=== PATIENT | female | born 1955 | race American Indian/Alaskan Native ===

== ENCOUNTER 2019-07-10 10:53 | Outpatient (CLI) | payer MEDICARE, OTHER ==
--- NOTE | 2019-07-10 14:28 | XRay Report ---
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 FINDINGS: BONES / JOINT(S): No acute displaced fracture or subluxation. No significant arthritis. There is a qu estionable 2.5 cm lucent lesion in the L2 vertebral body, though this may reflect superimposed bowel gas, and a possible 1.6 cm lucent lesion in the L4 vertebral body. There is a possible 10 mm lucent l esion in the left iliac crest. No additional obvious lytic lesions identified throughout the visualiz ed osseous structures. SOFT TISSUES: No significant abnormality. ADDITIONAL FINDINGS: The cardiomediastinal silhouette is unremarkable allowing for AP technique. The lungs are clear. No pleural effusion. No pneumothorax. Unremarkable bowel gas pattern. A 3 cm rounded calcific density projecting over the pelvis likely represents a calcified fibroid. IMPRESSION: 1. Several possible lucent lesions in the lumbar spine and bony pelvis as described above. CT or MRI of the lumbar spine and pelvis could be obtained for further characterization if clinically warranted . Signer Name: Kecia Baez MD Signed: 07/10/2019 2:23 PM Workstation Name: [id number]
== END 2019-07-10 10:54 | disposition home or self-care (01) ==
LOC: SPVIMAG 10:53
PROVIDERS: ATTEND Internal Medicine Hematology & Oncology
DX: D47.2 Monoclonal gammopathy (principal)
CPT/HCPCS: 77074

== ENCOUNTER 2020-08-29 23:49 | Inpatient (IN) | payer MEDICARE, OTHER ==
--- NOTE | 2020-08-30 00:05 | Emergency Department Report ---
ED CPR HPI - General Stated Complaint: CARDIAC ARREST Time Seen by Provider: 08/29/20 23:53 Source: EMS Mode of arrival: Stretcher Limitations: Altered Mental Status (unresponsive) - History of Present Illness Initial Comments: Chief complaint: Cardiac arrest HPI: History obtained from EMS and neighbor This is a 65-year-old female with history of end-stage renal disease on hem odialysis, multiple myeloma status post chemotherapy and stem cell transplant, hypertension, type 2 diabetes, who presents status post cardiac arrest. EMS was called to the scene for shortness of breath. Upon EMS arrival patient was found in the driveway laying down unresponsive. Initial rhythm asystole. EMS intubated patient with 7 oh ETT. Patient was given 3 doses of epinephrine. Patient was also given calcium and sodium bicarbonate. Patient's rhythm developed into PEA and ultimately sinus rhythm. Return of spontaneous circulation achieved while in route during EMS treatment after 10 minutes of resuscitation. Upon arrival patient has palpable radial pulses and normal blood pressure. I obtained medical history from daughter Awa Mendes at [phone] MsVivi Mendes is the clinical decision maker for patient Patient was in her normal state of health according to daughter. Patient had a phone conversation with her mother this afternoon. Patient receives cancer care through [facility]. She has been hospitalized at [facility] on previous occasions. Patient's last hemodialysis session occurred on Sunday. Patient's oncologist at [facility] is Dr. Bryan Reyna Daughter was unable to recall any drug allergies. MD Complaint: found unresponsive Place: home Bystander CPR Performed: No Initial Findings in the Field: unresponsive, other rhythm (Asystole) ROSC in the Field: Yes Associated Symptoms: other (EMS called shortness of breath) Treatments Prior to Arrival: intubation, epinephrine mgs # (3 doses of epinephrine), sodium bicarbonate (1 dose of sodium bicarbonate), calcium (1 dose of calcium) ED Review of Systems ROS: Stated complaint: CARDIAC ARREST Other details as noted in HPI Comment: Unobtainable due to pts medical conditions (Persistent unresponsive status after cardiac arrest) ED Past Medical Hx - Past Medical History Previous Medical History?: Yes Hx Renal Disease: Yes (End-stage renal disease) Additional medical history: Leukemia - Surgical History Past Surgical History?: Yes Additional Surgical History: Right upper extremity AV fistula - Family History Family history: other (Unable to be obtained) - Social History Substance Use Type: Other (Unable to be obtained) ED Physical Exam - General General appearance: other (Unresponsive, eyes open dry corneas no spontaneous movement no spontaneous respirations) - Head Head exam: Present: normocephalic, other (Large circular abrasion right parietal region 5 cm in diameter) - Eye Eye exam: Present: other (Fixed dilated pupils dry cornea absent eyelid reflex) - ENT ENT exam: Present: other (ETT in place) - Neck Neck exam: Present: normal inspection, other (No deformity) - Respiratory Respiratory exam: Present: other (Left chest: Permacath present, no erythema or drainage, right-sided breath sounds more prominent than the left). Absent: wheezes, rales, rhonchi, stridor - Cardiovascular Cardiovascular Exam: Present: regular rate, normal rhythm, normal heart sounds. Absent: systolic murmur, diastolic murmur, rubs, gallop - GI/Abdominal GI/Abdominal exam: Present: distended, hypoactive bowel sounds. Absent: guarding - Extremities Exam Extremities exam: Present: normal inspection, other (No deformities of the 4 extremities, right bicep AV fistula positive thrill positive bruit) - Neurological Exam Neurological exam: Present: other (Lifeless no spontaneous movement) - Psychiatric Psychiatric exam: Present: other (Lifeless no spontaneous movement) - Skin Skin exam: Present: intact, pallor ED Course Vital Signs 08/29/20 08/30/20 08/30/20 23:54 00:01 00:13 Pulse Rate 84 83 Respiratory 24 Rate Blood Pressure 108/47 108/47 O2 Sat by Pulse 98 99 99 Oximetry - Reevaluation(s) Reevaluation #1: 08/30/20 01:37 Best friend and nonfarm animal caretaker Lobito Mendes came to the bedside. She provided additional history. I updated son and best friend with results notably hyperka lemia. Reevaluation #2: 08/30/20 01:37 I have ordered treatment for hyperkalemia including sodium bicarbonate, insulin/dextrose, calcium gluconate Reevaluation #3: 08/30/20 02:04 ABG interpretation mixed respiratory and metabolic acidosis with adequate oxygenation mild hypercapnia Reevaluation #4: 08/30/20 02:16 I updated daughter with results of tests obtained. According to daughter she does not know of any drug allergies. - ABG Interpretation Ph: 7.20 PCO2: 49 PO2: 98 Bicarbonate: 78 Interpretation: respiratory acidosis, metabolic acidosis ED Medical Decision Making - Lab Data Result diagrams: 08/30/20 00:15 08/30/20 00:15 - EKG Data -: EKG Interpreted by Me EKG shows normal: axis - EKG Data 08/30/20 00:06 EKG obtained 0002 EKG interpreted by me Sinus arrhythmia rate 90 bpm normal axis prolonged QTC ST depression in lateral leads right bundle branch block no ST elevation - Radiology Data Radiology impression CT head without contrast: No evidence of acute intracranial process, right scalp injury CT angio chest: Diffuse bilateral interstitial airspace disease considerations pulmonary edema or diffuse infectious process, moderate size pericardial effusion, moderate cardiomegaly CT cervical spine without contrast: No evidence of acute bone marrow abnormality of the cervical spine, biapical airspace disease AP portable chest: ETT is 4 cm above the ceci, right-sided Port-A-Cath present, next interstitial and airspace disease CT abdomen pelvis: retained stool throughout colon - Medical Decision Making 1. Patient presents status post cardiac arrest initial rhythm asystole. Mauri Echeverria son came to the bedside. He understands the dire situation. Awa Mendes daughter was informed per phone. She understands that patient is in dire state. Both son and daughter understand that brain , anoxic brain injury is likely. Differential diagnosis hyperkalemia, myocardial infarction, pulmonary embolism, hypoxia, Severe metabolic acidosis, severe hyperglycemia 2. Pulmonary infiltrate seen on CT and chest radiograph differential diagnosis includes pulmonary embolism, infectious process. Antibiotics initiated in emergency department. COVID-19 test ordered. Patient received first COVID-19 vaccination earlier this month. Differential diagnosis includes multifocal pneumonia due to COVID-19 infection, healthcare associated pneumonia bacterial etiology. Acute pulmonary edema due to heart failure or end-stage renal disease. Covid test ordered. Covid precautions instituted. Broad-spectrum ant ibiotics initiated. 3. Hypertensive urgency: Patient subsequently developed severe hypertension wh ich I suspect is reflective of brain injury Critical Care Time: Yes Critical care time in (mins) excluding proc time.: 70 Critical care attestation.: If time is entered above; I have spent that time in minutes in the direct care of this critically ill patient, excluding procedure time. 70 minutes of critical care time excluding procedures were used in the care of the patient. Prior to patient's arrival, respiratory therapist called as well as team members assigned roles. I came immediately to the bedside upon patien t's arrival. I obtained history from EMS at the bedside. I discussed treatment plan with the nursing team members. I reviewed electronic record. I obtained history from family member. Patient required multiple interventions and reassessments. ED Disposition Clinical Impression: Anoxic encephalopathy, Cardiac arrest, Suspected COVID-19 virus infection, M ultifocal pneumonia, Pulmonary edema, End-stage renal disease on hemodialysis, Hypertensive urgency Disposition: 09 OP ADMIT IP TO THIS HOSP Is pt being admited?: Yes Condition: Critical Instructions: Pulmonary Edema (ED), Bacterial Pneumonia (ED)
[2020-08-30 00:38] LABS: Hematocrit 31.8 % (30.3-42.9); Hemoglobin 9.8 gm/dl (10.1-14.3); Mean Corpuscular HGB Conc 31 % (30-34); Red Blood Count 2.83 M/mm3 (3.65-5.03); Red Cell Distribution Width 19.9 % (13.2-15.2)
[2020-08-30 00:39] LABS: Mean Corpuscular Volume 112 fl (79-97)
[2020-08-30 00:40] LABS: Platelet Count 95 K/mm3 (140-440)
--- NOTE | 2020-08-30 00:48 | XRay Report ---
CHEST 1 VIEW, 08/29/2020 11:52 PM CLINICAL INFORMATION/INDICATION: Cardiac arrest. Unresponsive. COMPARISON: None. FINDINGS: SUPPORT DEVICES: Endotracheal tube is present with tip approximately 4 cm above the level the ceci. Dual-lumen central line and right-sided Port-A-Cath are present. HEART: The cardiac silhouette is moderately enlarged. LUNGS/PLEURA: Diffuse bilateral mixed interstitial and airspace disease is present, most prominent at the right lung base. There is no evidence of pneumothorax. ADDITIONAL FINDINGS: No additional acute findings. IMPRESSION: 1. Moderate enlargement of the cardiac silhouette. 2. Diffuse bilateral mixed interstitial and airspace disease. Considerations would include pulmonary edema or multifocal infectious process. Signer Name: Loree Loera MD Signed: 08/30/2020 12:44 AM Workstation Name: [id number]
[2020-08-30 01:01] LABS: Albumin 3.4 g/dL (3.9-5); Calcium 9.1 mg/dL (8.4-10.2)
[2020-08-30 01:25] LABS: Chol/HDL Ratio 2.27 %
[2020-08-30] MEDS ORDERED: SODIUM BICARB 8.4% 50 MEQ/50 ML SYRINGE IV ONE (01:31)
[2020-08-30] MEDS ORDERED: INSULIN REGULAR, HUMAN 100 UNITS/1 ML IV ONE ×2 (01:31→09:30)
[2020-08-30] MEDS ORDERED: DEXTROSE 50% IN WATER (25GM) 50 ML VIAL IV ONE (01:32)
--- NOTE | 2020-08-30 01:33 | Cat Scan Report ---
Examination: CT of the head without contrast Clinical information: Syncope. Altered mental status. Comparison: None Technical: Multiple axial CT images of the head were obtained without intravenous contrast. Sagittal and coronal reformats were obtained. All CTs at this facility utilize dose reduction techniques inc luding automated exposure control, iterative reconstruction and weight based dosing when appropriate to reduce patient radiation dose to as low as reasonable achievable. Findings: INTRACRANIAL CONTENTS: There is no CT evidence of acute intracranial hemorrhage. There is mild genera lized parenchymal atrophy. The ventricular system is normal in size. There is no evidence of mass eff ect or midline shift SKULL: No acute bony abnormality is visualized. ORBITS: The bilateral orbits and globes appear normal PARANASAL SINUSES / MASTOID AIR CELLS: Paranasal sinuses and mastoid air cells appear clear. There is a moderate sized right frontal scalp hematoma. Impression: 1. No CT evidence of acute intracranial process. 2. Right scalp injury. Signer Name: Loree Loera MD Signed: 08/30/2020 1:28 AM Workstation Name: [id number]
--- NOTE | 2020-08-30 01:37 | Cat Scan Report ---
Examination: CT of the cervical spine without contrast Clinical information: Trauma. Fall. Comparison: None Technical: Multiple axial CT images of the cervical spine were obtained without intravenous contrast. Sagittal and coronal reformats were obtained. All CTs at this facility utilize dose reduction techn iques including automated exposure control, iterative reconstruction and weight based dosing when nemesio ropriate to reduce patient radiation dose to as low as reasonable achievable. Findings: There is gross normal alignment of the cervical vertebral bodies. Vertebral body height and intervert ebral disc spaces are well maintained. Mild multilevel bony degenerative changes are noted. There is no CT evidence of acute fracture of the cervical vertebral bodies. Endotracheal tube is present. Limited visualization of the bilateral lung apices demonstrates diffuse bilateral airspace disease. Impression: 1. No CT evidence of acute bony abnormality of the cervical spine. 2. Biapical airspace disease. Signer Name: Loree Loera MD Signed: 08/30/2020 1:33 AM Workstation Name: [id number]
--- NOTE | 2020-08-30 01:43 | Cat Scan Report ---
CTA CHEST WITH IV CONTRAST INDICATION: Altered mental status. Syncope. Cardiac arrest. TECHNIQUE: Axial CT images were obtained through the chest after injection of IV contrast. Coronal oblique 2-D reconstruction images were produced. 3 plane MIP reconstruction images were produced at an [email or web address] workstation. All CTs at this facility utilize dose reduction techniques including automated expos ure control, iterative reconstruction and weight based dosing when appropriate to reduce patient radi ation dose to as low as reasonable achievable. COMPARISON: None. FINDINGS: Evaluation of the pulmonary arteries demonstrates no central or segmental filling defects to suggest pulmonary embolism. The heart is mildly enlarged. There is a moderate sized pericardial effusion yanna uring a maximum thickness of approximately 2.4 cm. Evaluation of the lung parenchyma demonstrates dif fuse bilateral mixed interstitial and airspace disease with associated atelectasis. An endotracheal tube is present with tip approximately 3 cm above the level the ceci. Limited imaging of the upper abdomen demonstrates no evidence of acute abnormality. Bones and soft tissues: Evaluation of bony and soft tissue structures demonstrates no acute abnormali ty. IMPRESSION: 1. Diffuse bilateral mixed interstitial and airspace disease. Considerations would include diffuse b ilateral pulmonary edema or diffuse infectious process. 2. Moderate sized pericardial effusion. 3. Moderate cardiomegaly Signer Name: Loree Loera MD Signed: 08/30/2020 1:38 AM Workstation Name: [id number]
[2020-08-30] MEDS ORDERED: DEXTROSE 50% IN WATER (25GM) 50 ML SYRINGE IV ONE ×3 (01:59→09:30)
--- NOTE | 2020-08-30 02:07 | Cat Scan Report ---
CT ABDOMEN AND PELVIS WITH IV CONTRAST INDICATION: Syncope. Cardiac arrest. TECHNIQUE: Following the administration of intravenous contrast, multiple axial CT images of the abdo men and pelvis were acquired. Sagittal and coronal reformats were obtained. All CT performed at this facility utilize dose reduction techniques including automated exposure control, iterative reconstru ction and weight based dosing when appropriate to reduce patient radiation dose to as low as reasonab ly achievable. COMPARISON: No prior abdominal imaging is available for comparison. FINDINGS: Limited imaging of the bilateral lung bases demonstrates diffuse bilateral mixed interstitial and air space disease with associated atelectasis. There is a pericardial effusion. ABDOMEN: The liver, spleen, gallbladder, pancreas, bilateral adrenal glands and bilateral kidneys show no evid ence of acute abnormality. There is mild fluid-filled distention of the stomach. There is dense ather osclerotic calcification of the abdominal aorta. There are multiple loops of moderately prominent fec alized small bowel. There is a moderate amount of retained stool throughout the colon. No free air is identified. There are multiple colonic diverticula. PELVIS: There is moderate sigmoid diverticulosis without evidence for diverticulitis. There is a moderate marci unt of formed stool within the rectum. The urinary bladder appears normal. Several calcified uterine fibroids are present. BONES AND SOFT TISSUES: No significant abnormality. IMPRESSION: 1. Retained stool throughout the colon and moderate amount of formed stool within the rectal vault re presenting constipation and possible fecal impaction. There are multiple loops of prominent fecalized small bowel which also may be secondary to constipation. 2. Bibasilar mixed interstitial and airspace disease. 3. Additional findings as above. Signer Name: Loree Loera MD Signed: 08/30/2020 2:03 AM Workstation Name: [id number]
[2020-08-30 02:33] LABS: Band Neutrophils # (Manual) 0.1 K/mm3; Total Cells Counted 100
[2020-08-30 02:34] LABS: Anisocytosis 1+; Platelet Estimate Consistent w Auto
[2020-08-30] MEDS ORDERED: VANCOMYCIN/NS 1 GM/250 ML 1 GM/250 ML BAG IV ONE (02:45)
[2020-08-30] MEDS ORDERED: dexAMETHasone 20 MG/5 ML VIAL IV ONE (02:49)
[2020-08-30] MEDS ORDERED: CALCIUM GLUCONATE 1,000 MG in SODIUM CHLORIDE 0.9% 100 ML IV ONE (03:31)
[2020-08-30 03:41] LABS: C-Reactive Protein 0.2 mg/dL (0.00-1.30)
[2020-08-30] MEDS ORDERED: PIPERACIL/TAZOBACTA 4.5/NS 100 4.5 GM/100 ML VIAL IV ONE (04:15)
[2020-08-30] MEDS ORDERED: MORPHINE 2 MG/1 ML INJ IV PRN (04:41)
[2020-08-30] MEDS ORDERED: MAGNESIUM HYDROXIDE (MOM) ORAL LIQD UDC PO PRN (04:41)
[2020-08-30] MEDS ORDERED: ONDANSETRON 4 MG/2 ML INJ IV PRN (04:41)
[2020-08-30] MEDS ORDERED: AZITHROMYCIN/NS 500 MG/250 ML 500 MG/250 ML BAG IV SCH (05:00)
--- NOTE | 2020-08-30 05:40 | History and Physical Report ---
History of Present Illness Date of examination: 08/30/20 Date of admission: 08/30/20 02:30 Chief complaint: Cardiac arrest History of present illness: 65-year-old female with known history of end-stage renal disease on dialysis, history of multiple myeloma status post chemotherapy and stem cell transplant, hypertension and diabetes mellitus was brought into the emergency room today after having a cardiac arrest. EMS was said to have been called because patient was having shortness of breath she was found to be in the driveway lying down unresponsive. Initial rhythm was asystole and patient was intubated by EMS. She had 3 rounds of epinephrine, given calcium and sodium bicarbonate. Initial rhythm was PEA and subsequently developed sinus rhythm. There was spontaneous return of circulation after about 10 minutes of resuscitation. Most of the history was gotten from the ER staff as family was not readily available. Patient's last dialysis was on Sunday. Patient follows up with oncologist (Dr. Bryan Reyna)at [facility] Work-up in the emergency room today reveals potassium of 7.0 Chest x-ray shows moderate enlargement of the cardiac silhouette, diffuse bilateral mixed interstitial and airspace disease. Considerations will include pulmonary edema or multifocal infectious process. Patient has been placed on empiric IV antibiotics for possible pneumonia. She has also had calcium gluconate, sodium bicarbonate, insulin and glucose for the hyperkalemia. . Past History Past Medical History: diabetes, dialysis, ESRD, hypertension, other (Multiple myeloma status post chemotherapy and stem cell transplant, leukemia) Past Surgical History: Other (Right upper extremity AV fistula) Social history: no significant social history Family history: no significant family history Medications and Allergies Allergies Allergy/AdvReac Type Severity Reaction Status Date / Time Unable to Assess Allergy Unverified 08/30/20 02:21 Active Meds: Active Medications Heparin Sodium (Porcine) (Heparin 5,000 Unit/1 Ml Vial) 5,000 unit SUB-Q Q8HR ANIYAH Ceftriaxone Sodium (Rocephin/Ns 2 Gm/100 Ml) 2 gm in 100 mls @ 200 mls/hr IV Q24H ANIYAH; Protocol Azithromycin (Zithromax/Ns) 500 mg in 250 mls @ 250 mls/hr IV Q24HR ANIYAH; Protocol Magnesium Hydroxide (Magnesium Hydroxide (Mom) Oral Liqd Udc) 30 ml PO Q4H PRN PRN Reason: Constipation Morphine Sulfate (Morphine 2 Mg/1 Ml Inj) 2 mg IV Q4H PRN PRN Reason: Pain, Moderate (4-6) Ondansetron HCl (Ondansetron 4 Mg/2 Ml Inj) 4 mg IV Q8H PRN PRN Reason: Nausea And Vomiting Sodium Chloride (Sodium Chloride 0.9% 10 Ml Flush Syringe) 10 ml IV BID ANIYAH Sodium Chloride (Sodium Chloride 0.9% 10 Ml Flush Syringe) 10 ml IV PRN PRN PRN Reason: LINE FLUSH Review of Systems ROS unobtainable: due to endotracheal tube Exam - Constitutional Vitals: Temp Pulse Resp BP Pulse Ox 96 H 28 H 130/65 100 08/30/20 04:01 08/30/20 04:01 08/30/20 04:01 08/30/20 04:01 General appearance: Present: no acute distress, well-nourished - EENT Eyes: Present: PERRL, EOM intact. Absent: scleral icterus ENT: hearing intact, clear oral mucosa, dentition normal - Neck Neck: Present: supple, normal ROM - Respiratory Respiratory effort: normal Respiratory: bilateral: diminished - Cardiovascular Rhythm: regular Heart Sounds: Present: S1 & S2. Absent: gallop, systolic murmur, diastolic murmur, rub, click - Extremities Extremities: no ischemia, pulses intact, pulses symmetrical, No edema, normal te mperature, normal color, Full ROM Peripheral Pulses: within normal limits - Abdominal General gastrointestinal: Present: soft, non-tender, non-distended. Absent: mass - Integumentary Integumentary: Present: clear, warm, dry. Absent: rash - Musculoskeletal Musculoskeletal: strength equal bilaterally - Psychiatric Psychiatric: cooperative - Neurologic Neurologic: CNII-XII intact, other (Intubated ) HEART Score - HEART Score Troponin: Troponin T 0.085 ng/mL (0.00-0.029) H 08/30/20 00:15 Results - Labs CBC & Chem 7: 08/30/20 00:15 08/30/20 03:10 Labs: Abnormal lab results 08/30/20 08/30/20 08/30/20 Range/Units 00:14 00:15 00:15 RBC 2.83 L (3.65-5.03) M/mm3 Hgb 9.8 L (10.1-14.3) gm/dl MCV 112 H (79-97) fl MCH 35 H (28-32) pg RDW 19.9 H (13.2-15.2) % Plt Count 95 L (140-440) K/mm3 Nucleated RBC % 1.0 H (0.0-0.9) % D-Dimer (0-234) ng/mlDDU ABG pH 7.199 L (7.320-7.450) POC ABG pCO2 49.3 H (32.0-48.0) mmHg ABG Hemoglobin 11.9 L (12.0-17.5) ABG Oxyhemoglobin 93.0 L (94-98) ABG Potassium 6.9 H (3.40-4.50) mmol/L ABG Glucose 158 H (65-95) mg/dL Carboxyhemoglobin 2.8 H (0.5-1.5) Potassium 7.0 H* (3.6-5.0) mmol/L Carbon Dioxide 18 L (22-30) mmol/L BUN 68 H (7-17) mg/dL Creatinine 8.3 H (0.6-1.2) mg/dL Glucose 174 H (65-100) mg/dL Phosphorus (2.5-4.5) mg/dL Magnesium (1.7-2.3) mg/dL Ferritin (10.0-200.0) ng/mL AST 68 H (5-40) units/L Alkaline Phosphatase 414 H (35-129) units/L Lactate Dehydrogenase (91-180) units/L Troponin T 0.085 H (0.00-0.029) ng/mL Total Protein 5.6 L (6.3-8.2) g/dL Albumin 3.4 L (3.9-5) g/dL HDL Cholesterol 66 H (40-59) mg/dL Arterial Blood Glucose 158 H (65-95) mg/dL Arterial Blood Ionized Calcium (4.6-5.3) mg/dL 08/30/20 08/30/20 08/30/20 Range/Units 00:15 00:15 03:10 RBC (3.65-5.03) M/mm3 Hgb (10.1-14.3) gm/dl MCV (79-97) fl MCH (28-32) pg RDW (13.2-15.2) % Plt Count (140-440) K/mm3 Nucleated RBC % (0.0-0.9) % D-Dimer 6083.16 H > 72084 H (0-234) ng/mlDDU ABG pH (7.320-7.450) POC ABG pCO2 (32.0-48.0) mmHg ABG Hemoglobin (12.0-17.5) ABG Oxyhemoglobin (94-98) ABG Potassium (3.40-4.50) mmol/L ABG Glucose (65-95) mg/dL Carboxyhemoglobin (0.5-1.5) Potassium (3.6-5.0) mmol/L Carbon Dioxide (22-30) mmol/L BUN (7-17) mg/dL Creatinine (0.6-1.2) mg/dL Glucose (65-100) mg/dL Phosphorus 11.50 H (2.5-4.5) mg/dL Magnesium 3.80 H (1.7-2.3) mg/dL Ferritin (10.0-200.0) ng/mL AST (5-40) units/L Alkaline Phosphatase (35-129) units/L Lactate Dehydrogenase (91-180) units/L Troponin T (0.00-0.029) ng/mL Total Protein (6.3-8.2) g/dL Albumin (3.9-5) g/dL HDL Cholesterol (40-59) mg/dL Arterial Blood Glucose (65-95) mg/dL Arterial Blood Ionized Calcium (4.6-5.3) mg/dL 08/30/20 08/30/20 08/30/20 Range/Units 03:10 03:10 04:49 RBC (3.65-5.03) M/mm3 Hgb (10.1-14.3) gm/dl MCV (79-97) fl MCH (28-32) pg RDW (13.2-15.2) % Plt Count (140-440) K/mm3 Nucleated RBC % (0.0-0.9) % D-Dimer (0-234) ng/mlDDU ABG pH (7.320-7.450) POC ABG pCO2 (32.0-48.0) mmHg ABG Hemoglobin 10.8 L (12.0-17.5) ABG Oxyhemoglobin (94-98) ABG Potassium 6.7 H (3.40-4.50) mmol/L ABG Glucose 137 H (65-95) mg/dL Carboxyhemoglobin (0.5-1.5) Potassium (3.6-5.0) mmol/L Carbon Dioxide (22-30) mmol/L BUN (7-17) mg/dL Creatinine (0.6-1.2) mg/dL Glucose 126 H (65-100) mg/dL Phosphorus (2.5-4.5) mg/dL Magnesium (1.7-2.3) mg/dL Ferritin 830.0 H (10.0-200.0) ng/mL AST (5-40) units/L Alkaline Phosphatase (35-129) units/L Lactate Dehydrogenase 400 H (91-180) units/L Troponin T (0.00-0.029) ng/mL Total Protein (6.3-8.2) g/dL Albumin (3.9-5) g/dL HDL Cholesterol (40-59) mg/dL Arterial Blood Glucose 137 H (65-95) mg/dL Arterial Blood Ionized Calcium 4.5 L (4.6-5.3) mg/dL Assessment and Plan - Patient Problems (1) Cardiac arrest Current Visit: Yes Status: Acute Plan to address problem: Successfully resuscitated and intubated. Possibly related to underlying multifocal infectious pulmonary process versus pulmonary edema and or hyperkalemia. Consult placed to cardiology for evaluation. Patient to be closely monitored in the intensive care unit. (2) Anoxic encephalopathy Current Visit: Yes Status: Acute Plan to address problem: Following cardiac arrest. Will be closely monitored in the intensive care unit. (3) End-stage renal disease on hemodialysis Current Visit: Yes Status: Acute Plan to address problem: Patient on dialysis on Mondays, Wednesdays and Fridays. Last dialysis was on Sunday. Consult placed to nephrology for evaluation. (4) Hypertensive urgency Current Visit: Yes Status: Acute Plan to address problem: Blood pressure currently stable. We will monitor vital signs closely. (5) Multifocal pneumonia Current Visit: Yes Status: Acute Plan to address problem: Patient commenced on empiric IV antibiotics. We will also request COVID-19 testing. Consult placed to infectious disease for evaluation. (6) Suspected COVID-19 virus infection Current Visit: Yes Status: Acute Plan to address problem: Patient commenced on IV steroids. Will await COVID-19 testing. Consult placed to infectious disease. (7) DVT prophylaxis Current Visit: Yes Status: Acute Plan to address problem: Patient placed on subcutaneous heparin. (8) Full code status Current Visit: Yes Status: Acute Plan to address problem: Patient is full code.
[2020-08-30] MEDS ORDERED: cefTRIAXone/NS 2 GM/100 ML 2 GM/100 ML BAG IV SCH (06:00)
[2020-08-30] MEDS: HEPARIN 5,000 UNIT/1 ML VIAL SUB-Q SCH ×3 (06:41→22:23)
--- NOTE | 2020-08-30 08:15 | Consultation ---
History of Present Illness - Reason for Consult Consult date: 08/30/20 end stage renal disease Requesting physician: SUSANA FLORES - History of Present Illness 65-year-old lady with who is well-known to me with a history of end-stage renal disease on hemodialysis on a Sunday, Sunday and Sunday schedule. Patient has a history of multiple myeloma undergoing chemotherapy and recently had a stem cell transplant. She has been doing well and is compliant with her dialysis treatments. She went to her usual dialysis on Sunday with no complications. EMS was called because of shortness of breath and on presentation found patient down unresponsive in her driveway. She was in asystole. She was intubated and had 3 rounds of epinephrine, calcium gluconate and bicarbonate on the field. She went into pulseless electrical activity and then into normal sinus rhythm. had return of spontaneous circulation after 10 minutes while enroute. In the emergency room potassium was high at 7 and chest x-ray showed cardiomegaly with bilateral interstitial alveolar infiltrates. I am consulted to provide dialysis to manage her fluid and electrolyte abnormalities. 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 denies: smoking, alcohol abuse, prescription drug abuse, IV drug use Family history: no significant family history Medications and Allergies Allergies Allergy/AdvReac Type Severity Reaction Status Date / Time No Known Allergies Allergy Verified 08/30/20 22:43 Home Medications Medication Instructions Recorded Confirmed Last Taken Type Acyclovir [Zovirax Tab] 400 mg PO BID 08/30/20 08/30/20 Unknown History Amlodipine Besylate 10 mg PO DAILY 08/30/20 08/30/20 Unknown History Furosemide [Lasix] 40 mg PO DAILY 08/30/20 08/30/20 Unknown History Gabapentin [Neurontin] 600 mg PO BID 08/30/20 08/30/20 Unknown History Imdur ER 30 mg PO DAILY 08/30/20 08/30/20 Unknown History Losartan Potassium 50 mg PO BID 08/30/20 08/30/20 Unknown History Losartan/Hydrochlorothiazide 1 each PO DAILY 08/30/20 08/30/20 Unknown History [Losartan-Hctz 100-25 mg Tab] Metoprolol Tartrate 25 mg PO BID 08/30/20 08/30/20 Unknown History Mirtazapine [Remeron] 30 mg PO HS 08/30/20 08/30/20 Unknown History Sevelamer Carbonate [Renvela] 800 mg PO TIDWM 08/30/20 08/30/20 Unknown History Vit B Complx C/Folic Acid/Zinc 0.8 mg PO DAILY 08/30/20 08/30/20 Unknown History [Dialyvite 800-Zinc 15 Tab] Zolpidem Tartrate [Edluar SUBL] 5 mg PO QHS PRN 08/30/20 08/30/20 Unknown History calcitrioL 0.5 mcg PO DAILY 08/30/20 08/30/20 Unknown History Active Meds: Active Medications Heparin Sodium (Porcine) (Heparin 5,000 Unit/1 Ml Vial) 5,000 unit SUB-Q Q8HR ANIYAH Last Admin: 08/30/20 06:41 Dose: 5,000 unit Documented by: Ceftriaxone Sodium (Rocephin/Ns 2 Gm/100 Ml) 2 gm in 100 mls @ 200 mls/hr IV Q24H ANIYAH; Protocol Last Admin: 08/30/20 06:41 Dose: 200 mls/hr Documented by: Azithromycin (Zithromax/Ns) 500 mg in 250 mls @ 250 mls/hr IV Q24HR ANIYAH; Protocol Last Admin: 08/30/20 06:40 Dose: 250 mls/hr Documented by: Magnesium Hydroxide (Magnesium Hydroxide (Mom) Oral Liqd Udc) 30 ml PO Q4H PRN PRN Reason: Constipation Morphine Sulfate (Morphine 2 Mg/1 Ml Inj) 2 mg IV Q4H PRN PRN Reason: Pain, Moderate (4-6) Ondansetron HCl (Ondansetron 4 Mg/2 Ml Inj) 4 mg IV Q8H PRN PRN Reason: Nausea And Vomiting Sodium Chloride (Sodium Chloride 0.9% 10 Ml Flush Syringe) 10 ml IV BID ANIYHA Sodium Chloride (Sodium Chloride 0.9% 10 Ml Flush Syringe) 10 ml IV PRN PRN PRN Reason: LINE FLUSH Exam - Vital Signs Vital signs: Vital Signs Pulse Resp BP Pulse Ox 84 24 108/47 98 08/29/20 23:54 08/29/20 23:54 08/29/20 23:54 06/13/21 23:54 - Physical Exam Narrative exam: Middle-aged -[place] female lying in bed in ICU intubated on ventilator on Diprivan and fentanyl infusions HEENT: NCAT, moving her eyes not purposefully, Neck: Supple, no venous distention CVS: S1S2 RRR with no murmur, rub or gallop Chest: Clear to auscultation Abdomen: Protuberant, soft to firm, nontender, no organomegaly, bowel sounds are present Extremities: No edema Genitourinary deferred Skin warm and dry no rash Neuro: Eyes open, moving her eyes nonpurposefully, not following commands Results - Lab Results 09/03/20 04:12 09/03/20 04:12 Most recent lab results ABG pH 7.332 (7.320-7.450) 08/30/20 04:49 ABG O2 Saturation 95.8 (0-100) 08/30/20 04:49 Calcium 9.1 mg/dL (8.4-10.2) 08/30/20 00:15 Phosphorus 11.50 mg/dL (2.5-4.5) H 08/30/20 00:15 Magnesium 3.80 mg/dL (1.7-2.3) H 08/30/20 00:15 Assessment and Plan - Patient Problems (1) Hyperkalemia Current Visit: Yes Status: Acute Plan to address problem: Emergent dialysis was done for hyperkalemia. Follow-up potassium (2) Cardiac arrest Current Visit: Yes Status: Acute Plan to address problem: Etiology uncertain. Cardiology evaluating patient. (3) End-stage renal disease on hemodialysis Current Visit: Yes Status: Acute Plan to address problem: Hemodialysis was done this morning. Patient is on a Sunday, Sunday/Sunday schedule. We will evaluate the need for dialysis again tomorrow. (4) Hypertensive urgency Current Visit: Yes Status: Acute Plan to address problem: Blood pressure was elevated on presentation but has improved. Follow-up blood pressure (5) Bilateral pulmonary infiltrates on chest x-ray Current Visit: Yes Status: Acute Plan to address problem: Probably secondary to pulmonary edema. Possibility of multifocal pneumonia being entertained. Continue antibiotics, follow-up cultures
[2020-08-30] MEDS ORDERED: SODIUM CHLORIDE 0.9% 100 ML IV PRN (09:00)
--- NOTE | 2020-08-30 09:05 | Consultation ---
History of Present Illness Consult date: 08/31/20 Reason for Consult: Post cardiac arrest History of present illness: Cardiac arrest History of present illness: 65-year-old female with known history of end-stage renal disease on dialysis, history of multiple myeloma status post chemotherapy and stem cell transplant, hypertension and diabetes mellitus was brought into the emergency room today after having a cardiac arrest. EMS was said to have been called because patient was having shortness of breath she was found to be in the driveway lying down unresponsive. Initial rhythm was asystole and patient was intubated by EMS. She had 3 rounds of epinephrine, given calcium and sodium bicarbonate. Initial rhythm was PEA and subsequently developed sinus rhythm. There was spontaneous return of circulation after about 10 minutes of resuscitation. Most of the history was gotten from the ER staff as family was not readily available. Patient's last dialysis was on Sunday. Patient follows up with oncologist (Dr. Bryan Reyna)at [facility] Work-up in the emergency room today reveals potassium of 7.0 Chest x-ray shows moderate enlargement of the cardiac silhouette, diffuse bilateral mixed interstitial and airspace disease. Considerations will include pulmonary edema or multifocal infectious process. Patient has been placed on empiric IV antibiotics for possible pneumonia. She has also had calcium gluconate, sodium bicarbonate, insulin and glucose for the hyperkalemia. Neurology consulted for evalauation of Post cardiac arrest , no hypothermia is performed Ct brain is remarkable for scalpe injury CTA lung is remarkable pulp. edema and or infection and pul/ effusion he is currently on 2 Mc of Fentanyl . Past History Past Medical History: diabetes, dialysis, ESRD, hypertension, other (Multiple myeloma status post chemotherapy and stem cell transplant, leukemia) Past Surgical History: Other (Right upper extremity AV fistula) Social history: no significant social history Family history: no significant family history Medications and Allergies Allergies Allergy/AdvReac Type Severity Reaction Status Date / Time Unable to Assess Allergy Unverified 08/30/20 02:21 Active Meds: Active Medications Heparin Sodium (Porcine) (Heparin 5,000 Unit/1 Ml Vial) 5,000 unit SUB-Q Q8HR ANIYAH Ceftriaxone Sodium (Rocephin/Ns 2 Gm/100 Ml) 2 gm in 100 mls @ 200 mls/hr IV Q24H ANIYAH; Protocol Azithromycin (Zithromax/Ns) 500 mg in 250 mls @ 250 mls/hr IV Q24HR ANIYAH; Protocol Magnesium Hydroxide (Magnesium Hydroxide (Mom) Oral Liqd Udc) 30 ml PO Q4H PRN PRN Reason: Constipation Morphine Sulfate (Morphine 2 Mg/1 Ml Inj) 2 mg IV Q4H PRN PRN Reason: Pain, Moderate (4-6) Ondansetron HCl (Ondansetron 4 Mg/2 Ml Inj) 4 mg IV Q8H PRN PRN Reason: Nausea And Vomiting Sodium Chloride (Sodium Chloride 0.9% 10 Ml Flush Syringe) 10 ml IV BID ANIYAH Sodium Chloride (Sodium Chloride 0.9% 10 Ml Flush Syringe) 10 ml IV PRN PRN PRN Reason: LINE FLUSH Review of Systems ROS unobtainable: due to endotracheal tube Exam - Constitutional Vitals: Temp Pulse Resp BP Pulse Ox 96 H 28 H 130/65 100 08/30/20 04:01 08/30/20 04:01 08/30/20 04:01 08/30/20 04:01 General appearance: Present: no acute distress, well-nourished - EENT Eyes: Present: PERRL, EOM intact. Absent: scleral icterus ENT: hearing intact, clear oral mucosa, dentition normal - Neck Neck: Present: supple, normal ROM - Respiratory Respiratory effort: normal Respiratory: bilateral: diminished - Cardiovascular Rhythm: regular Heart Sounds: Present: S1 & S2. Absent: gallop, systolic murmur, diastolic murmur, rub, click - Extremities Extremities: no ischemia, pulses intact, pulses symmetrical, No edema, normal temperature, normal color, Full ROM Peripheral Pulses: within normal limits - Abdominal General gastrointestinal: Present: soft, non-tender, non-distended. Absent: mass - Integumentary Integumentary: Present: clear, warm, dry. Absent: rash - Musculoskeletal Musculoskeletal: strength equal bilaterally - Psychiatric Psychiatric: cooperative - Neurologic Neurologic: CNII-XII intact, other (Intubated ) HEART Score - HEART Score Troponin: Troponin T 0.085 ng/mL (0.00-0.029) H 08/30/20 00:15 Results - Labs CBC & Chem 7: 08/30/20 00:15 08/30/20 03:10 Labs: Abnormal lab results 08/30/20 08/30/20 08/30/20 Range/Units 00:14 00:15 00:15 RBC 2.83 L (3.65-5.03) M/mm3 Hgb 9.8 L (10.1-14.3) gm/dl MCV 112 H (79-97) fl MCH 35 H (28-32) pg RDW 19.9 H (13.2-15.2) % Plt Count 95 L (140-440) K/mm3 Nucleated RBC % 1.0 H (0.0-0.9) % D-Dimer (0-234) ng/mlDDU ABG pH 7.199 L (7.320-7.450) POC ABG pCO2 49.3 H (32.0-48.0) mmHg ABG Hemoglobin 11.9 L (12.0-17.5) ABG Oxyhemoglobin 93.0 L (94-98) ABG Potassium 6.9 H (3.40-4.50) mmol/L ABG Glucose 158 H (65-95) mg/dL Carboxyhemoglobin 2.8 H (0.5-1.5) Potassium 7.0 H* (3.6-5.0) mmol/L Carbon Dioxide 18 L (22-30) mmol/L BUN 68 H (7-17) mg/dL Creatinine 8.3 H (0.6-1.2) mg/dL Glucose 174 H (65-100) mg/dL Phosphorus (2.5-4.5) mg/dL Magnesium (1.7-2.3) mg/dL Ferritin (10.0-200.0) ng/mL AST 68 H (5-40) units/L Alkaline Phosphatase 414 H (35-129) units/L Lactate Dehydrogenase (91-180) units/L Troponin T 0.085 H (0.00-0.029) ng/mL Total Protein 5.6 L (6.3-8.2) g/dL Albumin 3.4 L (3.9-5) g/dL HDL Cholesterol 66 H (40-59) mg/dL Arterial Blood Glucose 158 H (65-95) mg/dL Arterial Blood Ionized Calcium (4.6-5.3) mg/dL 08/30/20 08/30/20 08/30/20 Range/Units 00:15 00:15 03:10 RBC (3.65-5.03) M/mm3 Hgb (10.1-14.3) gm/dl MCV (79-97) fl MCH (28-32) pg RDW (13.2-15.2) % Plt Count (140-440) K/mm3 Nucleated RBC % (0.0-0.9) % D-Dimer 6083.16 H > 71904 H (0-234) ng/mlDDU ABG pH (7.320-7.450) POC ABG pCO2 (32.0-48.0) mmHg ABG Hemoglobin (12.0-17.5) ABG Oxyhemoglobin (94-98) ABG Potassium (3.40-4.50) mmol/L ABG Glucose (65-95) mg/dL Carboxyhemoglobin (0.5-1.5) Potassium (3.6-5.0) mmol/L Carbon Dioxide (22-30) mmol/L BUN (7-17) mg/dL Creatinine (0.6-1.2) mg/dL Glucose (65-100) mg/dL Phosphorus 11.50 H (2.5-4.5) mg/dL Magnesium 3.80 H (1.7-2.3) mg/dL Ferritin (10.0-200.0) ng/mL AST (5-40) units/L Alkaline Phosphatase (35-129) units/L Lactate Dehydrogenase (91-180) units/L Troponin T (0.00-0.029) ng/mL Total Protein (6.3-8.2) g/dL Albumin (3.9-5) g/dL HDL Cholesterol (40-59) mg/dL Arterial Blood Glucose (65-95) mg/dL Arterial Blood Ionized Calcium (4.6-5.3) mg/dL 08/30/20 08/30/20 08/30/20 Range/Units 03:10 03:10 04:49 RBC (3.65-5.03) M/mm3 Hgb (10.1-14.3) gm/dl MCV (79-97) fl MCH (28-32) pg RDW (13.2-15.2) % Plt Count (140-440) K/mm3 Nucleated RBC % (0.0-0.9) % D-Dimer (0-234) ng/mlDDU ABG pH (7.320-7.450) POC ABG pCO2 (32.0-48.0) mmHg ABG Hemoglobin 10.8 L (12.0-17.5) ABG Oxyhemoglobin (94-98) ABG Potassium 6.7 H (3.40-4.50) mmol/L ABG Glucose 137 H (65-95) mg/dL Carboxyhemoglobin (0.5-1.5) Potassium (3.6-5.0) mmol/L Carbon Dioxide (22-30) mmol/L BUN (7-17) mg/dL Creatinine (0.6-1.2) mg/dL Glucose 126 H (65-100) mg/dL Phosphorus (2.5-4.5) mg/dL Magnesium (1.7-2.3) mg/dL Ferritin 830.0 H (10.0-200.0) ng/mL AST (5-40) units/L Alkaline Phosphatase (35-129) units/L Lactate Dehydrogenase 400 H (91-180) units/L Troponin T (0.00-0.029) ng/mL Total Protein (6.3-8.2) g/dL Albumin (3.9-5) g/dL HDL Cholesterol (40-59) mg/dL Arterial Blood Glucose 137 H (65-95) mg/dL Arterial Blood Ionized Calcium 4.5 L (4.6-5.3) mg/dL Past History Past Medical History: diabetes, dialysis, ESRD, hypertension, other (Multiple myeloma status post chemotherapy and stem cell transplant, leukemia) Past Surgical History: Other (Right upper extremity AV fistula) Social history: no significant social history Family history: no significant family history Medications and Allergies Allergies Allergy/AdvReac Type Severity Reaction Status Date / Time No Known Allergies Allergy Verified 08/30/20 22:43 Home Medications Medication Instructions Recorded Confirmed Last Taken Type Acyclovir [Zovirax Tab] 400 mg PO BID 08/30/20 08/30/20 Unknown History Amlodipine Besylate 10 mg PO DAILY 08/30/20 08/30/20 Unknown History Furosemide [Lasix] 40 mg PO DAILY 08/30/20 08/30/20 Unknown History Gabapentin [Neurontin] 600 mg PO BID 08/30/20 08/30/20 Unknown History Imdur ER 30 mg PO DAILY 08/30/20 08/30/20 Unknown History Losartan Potassium 50 mg PO BID 08/30/20 08/30/20 Unknown History Losartan/Hydrochlorothiazide 1 each PO DAILY 08/30/20 08/30/20 Unknown History [Losartan-Hctz 100-25 mg Tab] Metoprolol Tartrate 25 mg PO BID 08/30/20 08/30/20 Unknown History Mirtazapine [Remeron] 30 mg PO HS 08/30/20 08/30/20 Unknown History Sevelamer Carbonate [Renvela] 800 mg PO TIDWM 08/30/20 08/30/20 Unknown History Vit B Complx C/Folic Acid/Zinc 0.8 mg PO DAILY 08/30/20 08/30/20 Unknown History [Dialyvite 800-Zinc 15 Tab] Zolpidem Tartrate [Edluar SUBL] 5 mg PO QHS PRN 08/30/20 08/30/20 Unknown History calcitrioL 0.5 mcg PO DAILY 08/30/20 08/30/20 Unknown History Active Meds: Active Medications Heparin Sodium (Porcine) (Heparin 5,000 Unit/1 Ml Vial) 5,000 unit SUB-Q Q8HR ANIYAH Last Admin: 08/30/20 06:41 Dose: 5,000 unit Documented by: Ceftriaxone Sodium (Rocephin/Ns 2 Gm/100 Ml) 2 gm in 100 mls @ 200 mls/hr IV Q24H ANIYAH; Protocol Last Admin: 08/30/20 06:41 Dose: 200 mls/hr Documented by: Azithromycin (Zithromax/Ns) 500 mg in 250 mls @ 250 mls/hr IV Q24HR ANIYAH; Protocol Last Admin: 08/30/20 06:40 Dose: 250 mls/hr Documented by: Sodium Chloride (Nacl 0.9%) 100 mls @ 999 mls/hr IV ARMIDA PRN PRN Reason: Hypotension Magnesium Hydroxide (Magnesium Hydroxide (Mom) Oral Liqd Udc) 30 ml PO Q4H PRN PRN Reason: Constipation Morphine Sulfate (Morphine 2 Mg/1 Ml Inj) 2 mg IV Q4H PRN PRN Reason: Pain, Moderate (4-6) Ondansetron HCl (Ondansetron 4 Mg/2 Ml Inj) 4 mg IV Q8H PRN PRN Reason: Nausea And Vomiting Sodium Chloride (Sodium Chloride 0.9% 10 Ml Flush Syringe) 10 ml IV BID ANIYAH Sodium Chloride (Sodium Chloride 0.9% 10 Ml Flush Syringe) 10 ml IV PRN PRN PRN Reason: LINE FLUSH Physical Examination - Vital Signs Vital Signs: Vital Signs Pulse Resp BP Pulse Ox 84 24 108/47 98 08/29/20 23:54 08/29/20 23:54 08/29/20 23:54 08/29/20 23:54 - Constitutional General appearance: comfortable - EENT EENT: Present: other (pupils constricted , eyes rolled up ,with slight EOM , no corneak is noted no gag ) - Respiratory Respiratory: Present: chest non-tender, lungs clear, rhonchi - Cardiovascular Cardiovascular: Present: regular rate Extremities: Present: no peripheral edema bilatateraly, no clubbing, cyanosis - Gastrointestinal Gastrointestinal: Present: normoactive bowel sounds - Integumentary Integumentary: Present: normal - Neurologic Sensorimotor examination: other (no movment to stimuli ,planter is equivical) Results - Laboratory Findings CBC and BMP: 08/31/20 05:45 08/31/20 05:45 Abnormal Lab Findings: Abnormal Labs 08/30/20 08/30/20 08/30/20 00:14 00:15 00:15 RBC 2.83 L Hgb 9.8 L MCV 112 H MCH 35 H RDW 19.9 H Plt Count 95 L Nucleated RBC % 1.0 H D-Dimer ABG pH 7.199 L POC ABG pCO2 49.3 H ABG Hemoglobin 11.9 L ABG Oxyhemoglobin 93.0 L ABG Potassium 6.9 H ABG Glucose 158 H Carboxyhemoglobin 2.8 H Potassium 7.0 H* Carbon Dioxide 18 L BUN 68 H Creatinine 8.3 H Glucose 174 H Phosphorus Magnesium Ferritin AST 68 H Alkaline Phosphatase 414 H Lactate Dehydrogenase Troponin T 0.085 H Total Protein 5.6 L Albumin 3.4 L HDL Cholesterol 66 H Arterial Blood Glucose 158 H Arterial Blood Ionized Calcium 08/30/20 08/30/20 08/30/20 00:15 00:15 03:10 RBC Hgb MCV MCH RDW Plt Count Nucleated RBC % D-Dimer 6083.16 H > 16013 H ABG pH POC ABG pCO2 ABG Hemoglobin ABG Oxyhemoglobin ABG Potassium ABG Glucose Carboxyhemoglobin Potassium Carbon Dioxide BUN Creatinine Glucose Phosphorus 11.50 H Magnesium 3.80 H Ferritin AST Alkaline Phosphatase Lactate Dehydrogenase Troponin T Total Protein Albumin HDL Cholesterol Arterial Blood Glucose Arterial Blood Ionized Calcium 08/30/20 08/30/20 08/30/20 03:10 03:10 04:49 RBC Hgb MCV MCH RDW Plt Count Nucleated RBC % D-Dimer ABG pH POC ABG pCO2 ABG Hemoglobin 10.8 L ABG Oxyhemoglobin ABG Potassium 6.7 H ABG Glucose 137 H Carboxyhemoglobin Potassium Carbon Dioxide BUN Creatinine Glucose 126 H Phosphorus Magnesium Ferritin 830.0 H AST Alkaline Phosphatase Lactate Dehydrogenase 400 H Troponin T Total Protein Albumin HDL Cholesterol Arterial Blood Glucose 137 H Arterial Blood Ionized Calcium 4.5 L 08/30/20 07:13 RBC Hgb MCV MCH RDW Plt Count Nucleated RBC % D-Dimer ABG pH POC ABG pCO2 ABG Hemoglobin ABG Oxyhemoglobin ABG Potassium ABG Glucose Carboxyhemoglobin Potassium 8.2 H* Carbon Dioxide BUN Creatinine Glucose Phosphorus Magnesium Ferritin AST Alkaline Phosphatase Lactate Dehydrogenase Troponin T Total Protein Albumin HDL Cholesterol Arterial Blood Glucose Arterial Blood Ionized Calcium Assessment and Plan Assessment and Plan # Cardiac arrest -Successfully resuscitated and intubated. - Possibly related to underlying multifocal infectious pulmonary process versus pulmonary edema and or hyperkalemia. -Currently on 2 mc Fantanyl -Intubated # Anoxic encephalopathy -Post cardiac arrest anoxia -Ct brain is noted -Consider Brain MRI -EEG -Off Sdation if possible. ++ Poor prognosis # End-stage renal disease on hemodialysis -Patient on dialysis on Mondays, Wednesdays and Fridays. -Last dialysis was on Sunday. -dialysed yesterday -BUn/Cr#74/7 # Hypertensive urgency -Blood pressure currently stable. -We will monitor vital signs closely. # Multifocal pneumonia -Patient commenced on empiric IV antibiotics. -We will also request COVID-19 testing. # DVT prophylaxis -Patient placed on subcutaneous heparin. # Full code status -Patient is full code. PLAN 1- MRI brain 2-EEG 3-Over all prognosis is poor 4- Off sedation 5- Dialysis ,Treat underlying infection
[2020-08-30] MEDS ORDERED: SODIUM POLYSTYRENE 15 GM/60 ML ORAL LIQD PO ONE (09:30)
[2020-08-30] MEDS ORDERED: CALCIUM GLUCONATE 2,000 MG in SODIUM CHLORIDE 0.9% 100 ML IV ONE (09:30)
[2020-08-30] MEDS: FAMOTIDINE 20 MG/2 ML INJ IV SCH (10:09)
[2020-08-30 11:29] LABS: Hepatitis B Surface Antigen Non-Reactive (Negative); Hepatitis C Virus Antibody Non-Reactive (NonReactive)
--- NOTE | 2020-08-30 11:41 | Event Note ---
This is 65-year-old female with diabetes mellitus, hypertension, hyperlipidemia, ESRD on HD MWF via left chest permacath, multiple myeloma s/p chemotherapy and stem cell transplant with right chest port, immature right upper extremity aVF and current tobacco abuse who presented to the emergency department on 08/30 s/p cardiac arrest after being found laying in driveway, unresponsive and in asystole by EMS after being called for shortness of breath. Patient was intubated by EMS and received 3 mg epinephrine, calcium and serum bicarbonate and ROSC was eventually achieved after 10 minutes of resuscitation. Recommend emergency department revealed hyperkalemia, CXR showed moderate enlargement of cardiac silhouette, diffuse bilateral mixed interstitial and airspace disease with considerations to pulmonary edema or multifocal infectious process. Patient was admitted to the hospitalist service s/p cardiac arrest with anoxic encephalopathy, ESRD on HD, hypertensive emergency, multifocal pneumonia and a and has a COVID-19 PUI. CCM, nephrology, neurology infectious disease and cardiology were consulted. 08/30: This morning neurology was consulted, patient noted to have leukocytosis, hyperkalemia, metabolic acidosis and hyperglycemia. Patient had hyperphosphatemia, hypomagnesemia also. Patient had hemodialysis today per nephrology. COVID-19 PCR negative. Patient was in ED holding and admitted to the ICU later during the day. Patient is sedated on fentanyl and propofol. At the time my examination she was assist-control, rate of 28, tidal and 450, 60 PEEP and FiO2 of 60%. PE: Constitutional: Patient is intubated on mechanical ventilation Neuro: Pupils reactive to light, slight cough/gag, no response to verbal or tactile stimuli, does not follow commands, does not track/focus CV: S1/S2 auscultated, no murmurs/gallop auscultated, regular rate and rhythm, peripheral pulses palpable x4, cap refill less than 3 seconds Respiratory: Intubated on mechanical ventilation, on assist control, rate of 28, tidal volume 450, PEEP of 6 on 60% FiO2, CTA, regular rate and rhythm GI: Abdomen soft nontender nondistended, active bowel sounds : Anuric Skin: CDI MS: Unable to assess This is 65-year-old female with DM, HTN, HLD, ESRD on HD MWF, multiple myeloma s/p chemotherapy and stem cell transplant and current tobacco abuse who was admitted s/p cardiac arrest with anoxic encephalopathy, hypertensive emergency, multifocal pneumonia and has a COVID-19 PUI COVID-19 ruled out S/p cardiac arrest Acute hypoxic respiratory failure Pericardial effusion Severe cardiomegaly Anoxic encephalopathy Hyperkalemia Hypochloremia Metabolic acidosis Hyperglycemia Hyperphosphatemia Hypermagnesemia Transaminitis Hypertension Hyperlipidemia ESRD on HD Multiple myeloma Current tobacco abuse -CCM, nephrology, cardiology, infectious disease, neurology consulted, appreciate recommendations -08/29 CXR shows moderate enlargement of cardiac silhouette, diffuse bilateral mixed chest x-ray and airspace disease -08/30 CT C-spine shows no CT evidence of acute bony abnormality the cervical spine, biapical airspace disease -08/30 CT head/brain shows no CT evidence of acute intracranial hemorrhage, mild generalized parenchymal atrophy, no evidence of midline shift or mass-effect, moderate size right frontal scalp hematoma -08/30 CTA chest shows no pulmonary embolism, mildly enlarged heart, moderate sized pericardial effusion, diffuse bilateral mixed interstitial and airspace disease with associated atelectasis. -08/30 CT abdomen/pelvis with contrast shows mild fluid-filled distended stomach, dense atherosclerotic calcification of the abdominal aorta, multiple loops of moderately prominent fecalized small bowel, moderate amount of retained stool throughout the colon which may represent possible sequela impaction and constipation, multiple colonic diverticula, several calcified uterine fibroids, bibasilar mixed interstitial and airspace disease -08/30 bilateral lower extremity Doppler ultrasound shows no evidence of DVT in either lower extremity -08/30 CXR shows moderate bilateral lateral pulmonary opacities improvement -08/30 echocardiogram pending -Empiric antibiotics per infectious disease -08/30 tracheal aspirate pending -S/P calcium gluconate, insulin, D50 for hyperkalemia in the emergency department -Lactulose every 6 -Bowel regimen -Tube feedings, SSI, Accu-Cheks every 6, hypoglycemic protocol -Trend CBC,BMP DVT/GI prophylaxis: SCDs to bilateral lower extremities while in bed, PPI, heparin subcu Disposition: ICU The high probability of a clinically significant, sudden or life threatening deterioration of the [multi] system(s) required my full and direct attention, intervention and personal management. The aggregate critical care time was [35] minutes. This time is in addition to time spent performing reported procedures but includes the following: [x] Data Review and interpretation [x] Patient assessment and monitoring of vital signs [x] Documentation [x] Medication orders and management
--- NOTE | 2020-08-30 11:44 | Vascular Lab Report ---
DUPLEX DOPPLER LOWER EXTREMITY VEINS, BILATERAL INDICATION: r/o dvt. TECHNIQUE: Duplex doppler imaging was performed through the veins of both lower extremities using ve nous compression and other maneuvers. COMPARISON: No relevant prior imaging study available. FINDINGS: Right Common femoral vein: Negative. Right Superficial femoral vein: Negative. Right Popliteal vein: Negative. Right Calf veins: Negative. Left Common femoral vein: Negative. Left Superficial femoral vein: Negative. Left Popliteal vein: Negative. Left Calf veins: Negative. Additional findings: None. IMPRESSION: No sonographic evidence for DVT in either lower extremity. Signer Name: Sly Traore Jr, MD Signed: 08/30/2020 11:40 AM Workstation Name: [id number]
--- NOTE | 2020-08-30 12:30 | Consultation ---
History of Present Illness Consult date: 08/30/20 Consult reason: cardiac arrest History of present illness: 65-year-old woman admitted following an out of hospital cardiopulmonary arrest. It was that she was found down with no pulse and ACLS was initiated by dredge operator. Patient is currently in the emergency room, unresponsive on the vent. Comorbidities include history of end-stage renal disease on hemodialysis, multiple myeloma currently on chemotherapy, hypertension and diabetes. Cardiac status is not optimally documented, since the patient's doctors and previous care with the [facility]. Patient was reported to have been compliant with hemodialysis sessions most recently within the 48 hours prior to presentation. Chest x-ray shows moderate severity cardiomegaly, with severe bilateral interstitial infiltrates. EKG shows a sinus arrhythmia with a nonspecific intra ventricular conduction block and nonspecific ST segment abnormalities. Past History Past Medical History: diabetes, dialysis, ESRD, hypertension, other (Multiple myeloma status post chemotherapy and stem cell transplant, leukemia) Past Surgical History: Other (Right upper extremity AV fistula) Social history: no significant social history Family history: no significant family history Medications and Allergies Allergies Allergy/AdvReac Type Severity Reaction Status Date / Time Unable to Assess Allergy Unverified 08/30/20 02:21 Active Meds: Active Medications Famotidine (Famotidine 20 Mg/2 Ml Inj) 20 mg IV DAILY ANIYAH Last Admin: 08/30/20 10:09 Dose: Not Given Documented by: Heparin Sodium (Porcine) (Heparin 5,000 Unit/1 Ml Vial) 5,000 unit SUB-Q Q8HR ANIYAH Last Admin: 08/30/20 06:41 Dose: 5,000 unit Documented by: Ceftriaxone Sodium (Rocephin/Ns 2 Gm/100 Ml) 2 gm in 100 mls @ 200 mls/hr IV Q24H ANIYAH; Protocol Last Admin: 08/30/20 06:41 Dose: 200 mls/hr Documented by: Azithromycin (Zithromax/Ns) 500 mg in 250 mls @ 250 mls/hr IV Q24HR ANIYAH; Protocol Last Admin: 08/30/20 06:40 Dose: 250 mls/hr Documented by: Sodium Chloride (Nacl 0.9%) 100 mls @ 999 mls/hr IV ARMIDA PRN PRN Reason: Hypotension Magnesium Hydroxide (Magnesium Hydroxide (Mom) Oral Liqd Udc) 30 ml PO Q4H PRN PRN Reason: Constipation Morphine Sulfate (Morphine 2 Mg/1 Ml Inj) 2 mg IV Q4H PRN PRN Reason: Pain, Moderate (4-6) Ondansetron HCl (Ondansetron 4 Mg/2 Ml Inj) 4 mg IV Q8H PRN PRN Reason: Nausea And Vomiting Sodium Chloride (Sodium Chloride 0.9% 10 Ml Flush Syringe) 10 ml IV BID ANIYAH Last Admin: 08/30/20 10:09 Dose: Not Given Documented by: Sodium Chloride (Sodium Chloride 0.9% 10 Ml Flush Syringe) 10 ml IV PRN PRN PRN Reason: LINE FLUSH Review of Systems ROS unobtainable: due to endotracheal tube, due to mental status Physical Examination Vital Signs Pulse Resp BP Pulse Ox 84 24 108/47 98 08/29/20 23:54 08/29/20 23:54 08/29/20 23:54 08/29/20 23:54 General appearance: other (Unresponsive, on the vent) HEENT: Positive: Other (Pupils fixed) Neck: Positive: neck supple Cardiac: Positive: Reg Rate and Rhythm Lungs: Positive: Decreased Breath Sounds Neuro: Positive: Other (Unresponsive, on the vent) Abdomen: Positive: Soft Female genitourinary: deferred Skin: Positive: Clear Extremities: Absent: edema Results 08/30/20 00:15 08/30/20 07:13 Cardiac Enzymes 08/30/20 08/30/20 Range/Units 00:15 03:10 AST 68 H (5-40) units/L Lactate Dehydrogenase 400 H (91-180) units/L Lipids 08/30/20 Range/Units 00:15 Triglycerides 61 (2-149) mg/dL Cholesterol 150 (50-199) mg/dL HDL Cholesterol 66 H (40-59) mg/dL Cholesterol/HDL Ratio 2.27 % CBC 08/30/20 Range/Units 00:15 WBC 9.8 (4.5-11.0) K/mm3 RBC 2.83 L (3.65-5.03) M/mm3 Hgb 9.8 L (10.1-14.3) gm/dl Hct 31.8 (30.3-42.9) % Plt Count 95 L (140-440) K/mm3 Comprehensive Metabolic Panel 08/30/20 08/30/20 08/30/20 Range/Units 00:15 03:10 07:13 Sodium 141 (137-145) mmol/L Potassium 7.0 H* 8.2 H* (3.6-5.0) mmol/L Chloride 98.9 (98-107) mmol/L Carbon Dioxide 18 L (22-30) mmol/L BUN 68 H (7-17) mg/dL Creatinine 8.3 H (0.6-1.2) mg/dL Glucose 174 H 126 H (65-100) mg/dL Calcium 9.1 (8.4-10.2) mg/dL AST 68 H (5-40) units/L ALT 38 (7-56) units/L Alkaline Phosphatase 414 H (35-129) units/L Total Protein 5.6 L (6.3-8.2) g/dL Albumin 3.4 L (3.9-5) g/dL EKG interpretations - Telemetry EKG Rhythm: Sinus Rhythm Assessment and Plan - Patient Problems (1) Cardiopulmonary arrest Current Visit: Yes Status: Acute Plan to address problem: Patient presents with an out of hospital cardiopulmonary arrest. Patient with end-stage renal disease on hemodialysis, undergoing chemotherapy. Chest x-ray shows moderate to severe cardiomegaly with bilateral pulmonary edema. Records of any prior cardiac work-up done at [facility] are not available for review. In addition to supportive management, we will get an echocardiogram for left ventricular function assessment, further cardiac management will depend on clinical course. Prognosis is poor in the setting of multiple severe comorbidities, and out of hospital cardiopulmonary arrest with unknown downtime.
--- NOTE | 2020-08-30 13:10 | Consultation ---
History of Present Illness - Reason for Consult Consult date: 08/30/20 - History of Present Illness 65 yo F PMHx multiple myeloma s/p cehmotherapy and stem cell transplant (unclear date), ESRD on HD, diabetes presented to the hospital after being found unresponsive in her driveway. She was noted to be PEA and was resuscitated. Her most recent HD was on Sunday prior to admission. She follows with [facility] for her cancer therapy. Afebrile with low temperatures, white count 9.8. Hepatitis panel negative. Hyperkalemic. On the vent. Imaging personally reviewed: Chest CTA: Diffuse bilateral mixed interstitial and airspace disease. infection vs. edema. Pericardial effusion. Past History Past Medical History: diabetes, dialysis, ESRD, hypertension, other (Multiple myeloma status post chemotherapy and stem cell transplant, leukemia) Past Surgical History: Other (Right upper extremity AV fistula) Social history: no significant social history Family history: no significant family history Medications and Allergies Allergies Allergy/AdvReac Type Severity Reaction Status Date / Time Unable to Assess Allergy Unverified 08/30/20 02:21 Active Meds: Active Medications Famotidine (Famotidine 20 Mg/2 Ml Inj) 20 mg IV DAILY ANIYAH Last Admin: 08/30/20 10:09 Dose: Not Given Documented by: Heparin Sodium (Porcine) (Heparin 5,000 Unit/1 Ml Vial) 5,000 unit SUB-Q Q8HR ANIYAH Last Admin: 08/30/20 06:41 Dose: 5,000 unit Documented by: Ceftriaxone Sodium (Rocephin/Ns 2 Gm/100 Ml) 2 gm in 100 mls @ 200 mls/hr IV Q24H ANIYAH; Protocol Last Admin: 08/30/20 06:41 Dose: 200 mls/hr Documented by: Azithromycin (Zithromax/Ns) 500 mg in 250 mls @ 250 mls/hr IV Q24HR ANIYAH; Protocol Last Admin: 08/30/20 06:40 Dose: 250 mls/hr Documented by: Sodium Chloride (Nacl 0.9%) 100 mls @ 999 mls/hr IV ARMIDA PRN PRN Reason: Hypotension Propofol (Diprivan 10 Mg/Ml) 1,000 mg in 100 mls @ 2.381 mls/hr IV TITR ANIYAH; Protocol Magnesium Hydroxide (Magnesium Hydroxide (Mom) Oral Liqd Udc) 30 ml PO Q4H PRN PRN Reason: Constipation Morphine Sulfate (Morphine 2 Mg/1 Ml Inj) 2 mg IV Q4H PRN PRN Reason: Pain, Moderate (4-6) Ondansetron HCl (Ondansetron 4 Mg/2 Ml Inj) 4 mg IV Q8H PRN PRN Reason: Nausea And Vomiting Sodium Chloride (Sodium Chloride 0.9% 10 Ml Flush Syringe) 10 ml IV BID ANIYAH Last Admin: 08/30/20 10:09 Dose: Not Given Documented by: Sodium Chloride (Sodium Chloride 0.9% 10 Ml Flush Syringe) 10 ml IV PRN PRN PRN Reason: LINE FLUSH Review of Systems ROS unobtainable: due to endotracheal tube Physical Examination - Physical Exam Narrative exam: Physical Exam: Constitutional: intubated, sedated Head, Ears, Nose: Normocephalic, atraumatic. External ears, nose normal Eyes: Conjunctivae/corneas clear. No icterus. No ptosis. Neck: ETT Oral: ETT Cardiovascular: S1, S2 normal. Respiratory: Good air entry, clear to auscultation bilaterally GI: Soft, non-tender; bowel sounds normal. No peritoneal signs. Musculoskeletal: No pedal edema, no cyanosis. Skin: No rash or abscess Hem/Lymphatic: No palpable cervical or supraclavicular nodes. No lymphangitis Psych: Sedated Neurological: Sedated - Constitutional Vitals: Vital Signs Temp Pulse Resp BP Pulse Ox 97.2 F L 108 H 32 H 190/76 100 08/30/20 11:41 08/30/20 12:45 08/30/20 11:15 08/30/20 12:45 08/30/20 11:26 Temperature -Last 24 Hours Temperature 97.2 F Temperature 97.9 F Results - Labs CBC & Chem 7: 08/30/20 00:15 08/30/20 07:13 Labs: Abnormal lab results 08/30/20 08/30/20 08/30/20 Range/Units 00:14 00:15 00:15 RBC 2.83 L (3.65-5.03) M/mm3 Hgb 9.8 L (10.1-14.3) gm/dl MCV 112 H (79-97) fl MCH 35 H (28-32) pg RDW 19.9 H (13.2-15.2) % Plt Count 95 L (140-440) K/mm3 Nucleated RBC % 1.0 H (0.0-0.9) % D-Dimer (0-234) ng/mlDDU ABG pH 7.199 L (7.320-7.450) POC ABG pCO2 49.3 H (32.0-48.0) mmHg ABG Hemoglobin 11.9 L (12.0-17.5) ABG Oxyhemoglobin 93.0 L (94-98) ABG Potassium 6.9 H (3.40-4.50) mmol/L ABG Glucose 158 H (65-95) mg/dL Carboxyhemoglobin 2.8 H (0.5-1.5) Potassium 7.0 H* (3.6-5.0) mmol/L Carbon Dioxide 18 L (22-30) mmol/L BUN 68 H (7-17) mg/dL Creatinine 8.3 H (0.6-1.2) mg/dL Glucose 174 H (65-100) mg/dL Phosphorus (2.5-4.5) mg/dL Magnesium (1.7-2.3) mg/dL Ferritin (10.0-200.0) ng/mL AST 68 H (5-40) units/L Alkaline Phosphatase 414 H (35-129) units/L Lactate Dehydrogenase (91-180) units/L Troponin T 0.085 H (0.00-0.029) ng/mL Total Protein 5.6 L (6.3-8.2) g/dL Albumin 3.4 L (3.9-5) g/dL HDL Cholesterol 66 H (40-59) mg/dL Arterial Blood Glucose 158 H (65-95) mg/dL Arterial Blood Ionized Calcium (4.6-5.3) mg/dL 08/30/20 08/30/20 08/30/20 Range/Units 00:15 00:15 03:10 RBC (3.65-5.03) M/mm3 Hgb (10.1-14.3) gm/dl MCV (79-97) fl MCH (28-32) pg RDW (13.2-15.2) % Plt Count (140-440) K/mm3 Nucleated RBC % (0.0-0.9) % D-Dimer 6083.16 H > 47391 H (0-234) ng/mlDDU ABG pH (7.320-7.450) POC ABG pCO2 (32.0-48.0) mmHg ABG Hemoglobin (12.0-17.5) ABG Oxyhemoglobin (94-98) ABG Potassium (3.40-4.50) mmol/L ABG Glucose (65-95) mg/dL Carboxyhemoglobin (0.5-1.5) Potassium (3.6-5.0) mmol/L Carbon Dioxide (22-30) mmol/L BUN (7-17) mg/dL Creatinine (0.6-1.2) mg/dL Glucose (65-100) mg/dL Phosphorus 11.50 H (2.5-4.5) mg/dL Magnesium 3.80 H (1.7-2.3) mg/dL Ferritin (10.0-200.0) ng/mL AST (5-40) units/L Alkaline Phosphatase (35-129) units/L Lactate Dehydrogenase (91-180) units/L Troponin T (0.00-0.029) ng/mL Total Protein (6.3-8.2) g/dL Albumin (3.9-5) g/dL HDL Cholesterol (40-59) mg/dL Arterial Blood Glucose (65-95) mg/dL Arterial Blood Ionized Calcium (4.6-5.3) mg/dL 08/30/20 08/30/20 08/30/20 Range/Units 03:10 03:10 04:49 RBC (3.65-5.03) M/mm3 Hgb (10.1-14.3) gm/dl MCV (79-97) fl MCH (28-32) pg RDW (13.2-15.2) % Plt Count (140-440) K/mm3 Nucleated RBC % (0.0-0.9) % D-Dimer (0-234) ng/mlDDU ABG pH (7.320-7.450) POC ABG pCO2 (32.0-48.0) mmHg ABG Hemoglobin 10.8 L (12.0-17.5) ABG Oxyhemoglobin (94-98) ABG Potassium 6.7 H (3.40-4.50) mmol/L ABG Glucose 137 H (65-95) mg/dL Carboxyhemoglobin (0.5-1.5) Potassium (3.6-5.0) mmol/L Carbon Dioxide (22-30) mmol/L BUN (7-17) mg/dL Creatinine (0.6-1.2) mg/dL Glucose 126 H (65-100) mg/dL Phosphorus (2.5-4.5) mg/dL Magnesium (1.7-2.3) mg/dL Ferritin 830.0 H (10.0-200.0) ng/mL AST (5-40) units/L Alkaline Phosphatase (35-129) units/L Lactate Dehydrogenase 400 H (91-180) units/L Troponin T (0.00-0.029) ng/mL Total Protein (6.3-8.2) g/dL Albumin (3.9-5) g/dL HDL Cholesterol (40-59) mg/dL Arterial Blood Glucose 137 H (65-95) mg/dL Arterial Blood Ionized Calcium 4.5 L (4.6-5.3) mg/dL 08/30/20 Range/Units 07:13 RBC (3.65-5.03) M/mm3 Hgb (10.1-14.3) gm/dl MCV (79-97) fl MCH (28-32) pg RDW (13.2-15.2) % Plt Count (140-440) K/mm3 Nucleated RBC % (0.0-0.9) % D-Dimer (0-234) ng/mlDDU ABG pH (7.320-7.450) POC ABG pCO2 (32.0-48.0) mmHg ABG Hemoglobin (12.0-17.5) ABG Oxyhemoglobin (94-98) ABG Potassium (3.40-4.50) mmol/L ABG Glucose (65-95) mg/dL Carboxyhemoglobin (0.5-1.5) Potassium 8.2 H* (3.6-5.0) mmol/L Carbon Dioxide (22-30) mmol/L BUN (7-17) mg/dL Creatinine (0.6-1.2) mg/dL Glucose (65-100) mg/dL Phosphorus (2.5-4.5) mg/dL Magnesium (1.7-2.3) mg/dL Ferritin (10.0-200.0) ng/mL AST (5-40) units/L Alkaline Phosphatase (35-129) units/L Lactate Dehydrogenase (91-180) units/L Troponin T (0.00-0.029) ng/mL Total Protein (6.3-8.2) g/dL Albumin (3.9-5) g/dL HDL Cholesterol (40-59) mg/dL Arterial Blood Glucose (65-95) mg/dL Arterial Blood Ionized Calcium (4.6-5.3) mg/dL Assessment and Plan Cultures: None A/P: 65 yo F PMH EFx ESRD on HD, multiple myeloma s/p chemo and BMT, DM2 presented after being found non-responsive. #Acute hypoxic respiratory failure: secondary to edema vs infection. Normal white count, afebrile (low temps right now). Proclacitonin likely to be falsely elevated in renal failure as it is renally excreted. Given pericardial effusion, most likely her resp failure is due to volume/hyperkalemia, however given her immunocompromised status will continue empiric antibiotics for now. #Multiple myeloma: s/p chemo and BMT. Unclear dates of these and status of remission/vaccinations. Will presume immunocompromised for now #ESRD on HD: renally dose medications #Hyperkalemia Recs: -Given potential for immunocompromise as above, will treat with meropenem for now. -I do presume her symptoms are more likely to fluid/electrolyte imabalance, as such will likely de-escalate shortly assuming infective data remains negative -Obtain tracheal aspirate culture -No evidence of fungal cavitations on CTA. Thank you for the consult, we will continue to follow. MD Julio Sheikh [facility] O: [phone] F: [phone]
--- NOTE | 2020-08-30 14:03 | Consultation ---
History of Present Illness Consult date: 08/30/20 Requesting physician: SUSANA FLORES Reason for consult: other (Acuite Hypoxemic Respiratory Failure; Cardiac Arrest with ROSC) History of present illness: PULMONARY/CCM CONSULT NOTE (Full dictation # [id number]) Please see dictated notes for full details Past History Past Medical History: diabetes, dialysis, ESRD, hypertension, other (Multiple myeloma status post chemotherapy and stem cell transplant, leukemia) Past Surgical History: Other (Right upper extremity AV fistula) Social history: no significant social history Family history: no significant family history Medications and Allergies Allergies Allergy/AdvReac Type Severity Reaction Status Date / Time Unable to Assess Allergy Unverified 08/30/20 02:21 Active Meds: Active Medications Famotidine (Famotidine 20 Mg/2 Ml Inj) 20 mg IV DAILY COUNT INCLUDES THE [facility] Last Admin: 08/30/20 10:09 Dose: Not Given Documented by: Heparin Sodium (Porcine) (Heparin 5,000 Unit/1 Ml Vial) 5,000 unit SUB-Q Q8HR ANIYAH Last Admin: 08/30/20 06:41 Dose: 5,000 unit Documented by: Sodium Chloride (Nacl 0.9%) 100 mls @ 999 mls/hr IV ARMIDA PRN PRN Reason: Hypotension Propofol (Diprivan 10 Mg/Ml) 1,000 mg in 100 mls @ 2.381 mls/hr IV TITR ANIYAH; Protocol Last Titration: 08/30/20 13:17 Dose: 15 mcg/kg/min, 7.144 mls/hr Documented by: Meropenem (Merrem/Ns 500 Mg/50 Ml) 500 mg in 50 mls @ 50 mls/hr IV Q24H ANIYAH Magnesium Hydroxide (Magnesium Hydroxide (Mom) Oral Liqd Udc) 30 ml PO Q4H PRN PRN Reason: Constipation Morphine Sulfate (Morphine 2 Mg/1 Ml Inj) 2 mg IV Q4H PRN PRN Reason: Pain, Moderate (4-6) Ondansetron HCl (Ondansetron 4 Mg/2 Ml Inj) 4 mg IV Q8H PRN PRN Reason: Nausea And Vomiting Sodium Chloride (Sodium Chloride 0.9% 10 Ml Flush Syringe) 10 ml IV BID ANIYAH Last Admin: 08/30/20 10:09 Dose: Not Given Documented by: Sodium Chloride (Sodium Chloride 0.9% 10 Ml Flush Syringe) 10 ml IV PRN PRN PRN Reason: LINE FLUSH Physical Examination Vital signs: Vital Signs Pulse Resp BP Pulse Ox 84 24 108/47 98 08/29/20 23:54 08/29/20 23:54 08/29/20 23:54 08/29/20 23:54 Results - Laboratory Findings CBC and BMP: 08/30/20 00:15 08/30/20 07:13 ABG ABG pH 7.332 (7.320-7.450) 08/30/20 04:49 POC ABG pCO2 47.3 mmHg (32.0-48.0) 08/30/20 04:49 POC ABG pO2 88.2 mmHg (83-108) 08/30/20 04:49 POC ABG HCO3 24.5 08/30/20 04:49 ABG O2 Saturation 95.8 (0-100) 08/30/20 04:49 PT/INR, D-dimer D-Dimer > 52610 ng/mlDDU (0-234) H 08/30/20 03:10 Abnormal lab findings: Abnormal Labs 08/30/20 08/30/20 08/30/20 00:14 00:15 00:15 RBC 2.83 L Hgb 9.8 L MCV 112 H MCH 35 H RDW 19.9 H Plt Count 95 L Nucleated RBC % 1.0 H D-Dimer ABG pH 7.199 L POC ABG pCO2 49.3 H ABG Hemoglobin 11.9 L ABG Oxyhemoglobin 93.0 L ABG Potassium 6.9 H ABG Glucose 158 H Carboxyhemoglobin 2.8 H Potassium 7.0 H* Carbon Dioxide 18 L BUN 68 H Creatinine 8.3 H Glucose 174 H Phosphorus Magnesium Ferritin AST 68 H Alkaline Phosphatase 414 H Lactate Dehydrogenase Troponin T 0.085 H Total Protein 5.6 L Albumin 3.4 L HDL Cholesterol 66 H Arterial Blood Glucose 158 H Arterial Blood Ionized Calcium 08/30/20 08/30/20 08/30/20 00:15 00:15 03:10 RBC Hgb MCV MCH RDW Plt Count Nucleated RBC % D-Dimer 6083.16 H > 49045 H ABG pH POC ABG pCO2 ABG Hemoglobin ABG Oxyhemoglobin ABG Potassium ABG Glucose Carboxyhemoglobin Potassium Carbon Dioxide BUN Creatinine Glucose Phosphorus 11.50 H Magnesium 3.80 H Ferritin AST Alkaline Phosphatase Lactate Dehydrogenase Troponin T Total Protein Albumin HDL Cholesterol Arterial Blood Glucose Arterial Blood Ionized Calcium 08/30/20 08/30/20 08/30/20 03:10 03:10 04:49 RBC Hgb MCV MCH RDW Plt Count Nucleated RBC % D-Dimer ABG pH POC ABG pCO2 ABG Hemoglobin 10.8 L ABG Oxyhemoglobin ABG Potassium 6.7 H ABG Glucose 137 H Carboxyhemoglobin Potassium Carbon Dioxide BUN Creatinine Glucose 126 H Phosphorus Magnesium Ferritin 830.0 H AST Alkaline Phosphatase Lactate Dehydrogenase 400 H Troponin T Total Protein Albumin HDL Cholesterol Arterial Blood Glucose 137 H Arterial Blood Ionized Calcium 4.5 L 08/30/20 07:13 RBC Hgb MCV MCH RDW Plt Count Nucleated RBC % D-Dimer ABG pH POC ABG pCO2 ABG Hemoglobin ABG Oxyhemoglobin ABG Potassium ABG Glucose Carboxyhemoglobin Potassium 8.2 H* Carbon Dioxide BUN Creatinine Glucose Phosphorus Magnesium Ferritin AST Alkaline Phosphatase Lactate Dehydrogenase Troponin T Total Protein Albumin HDL Cholesterol Arterial Blood Glucose Arterial Blood Ionized Calcium
[2020-08-30] MEDS ORDERED: LIP THERAPY VASELINE TP PRN (14:05)
[2020-08-30] MEDS ORDERED: fentaNYL 100 MCG/2 ML INJ IV PRN (14:05)
[2020-08-30] MEDS ORDERED: SIMPLE SYRUP 15 ML FEEDTUBE PRN ×2 (14:27)
[2020-08-30] MEDS ORDERED: SODIUM BICARBONATE 325 MG TAB FEEDTUBE PRN (14:27)
[2020-08-30] MEDS ORDERED: LIPASE 10,500/PROTEASE 25,000/AMYLASE 43,750 (UNITS) DR CAP FEEDTUBE PRN (14:27)
--- NOTE | 2020-08-30 15:01 | Electrocardiograph Report ---
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
[2020-08-30] MEDS: fentaNYL DRIP Premix 2,000 MCG/100 ML BAG IV SCH (15:47)
[2020-08-30] MEDS: LACTULOSE 20 GM/30 ML ORAL LIQD PO SCH ×2 (15:47→18:47)
[2020-08-30] MEDS ORDERED: SODIUM CHLORIDE 0.9% 500 ML 500 ML ONE (15:57)
[2020-08-30 16:05] LABS: Hematocrit 34.9 % (30.3-42.9); Hemoglobin 11.1 gm/dl (10.1-14.3); Mean Corpuscular HGB Conc 32 % (30-34); Mean Corpuscular Volume 108 fl (79-97); Red Blood Count 3.23 M/mm3 (3.65-5.03); Red Cell Distribution Width 19.4 % (13.2-15.2)
--- NOTE | 2020-08-30 16:08 | XRay Report ---
CHEST 1 VIEW 08/30/2020 2:57 PM INDICATION / CLINICAL INFORMATION: og tube placement. COMPARISON: 08/29/2020 FINDINGS: SUPPORT DEVICES: Interval placement of OG tube with its tip in appropriate position over the gastric lumen. Additional medical devices are in stable position. HEART / MEDIASTINUM: Stable. LUNGS / PLEURA: Interval improvement of bilateral pulmonary opacities when compared to prior exam. No pneumothorax. ADDITIONAL FINDINGS: No significant additional findings. IMPRESSION: 1. Interval placement of NG tube with its tip in appropriate position. 2. Additional medical devices are in stable position. 3. Improved bilateral pulmonary opacities. Signer Name: Matt Hernandez MD Signed: 08/30/2020 4:04 PM Workstation Name: [id number]
[2020-08-30 16:15] LABS: Platelet Count 90 K/mm3 (140-440)
[2020-08-30 16:27] LABS: Albumin 3.7 g/dL (3.9-5); Calcium 8.7 mg/dL (8.4-10.2)
[2020-08-30] MEDS: MEROPENEM/NS 500 MG/50 ML 500 MG/50 ML BAG IV SCH (17:29)
[2020-08-30] MEDS ORDERED: INSULIN REGULAR, HUMAN 100 UNITS/1 ML SUB-Q SCH (20:00)
[2020-08-30] MEDS: SENNOSIDES/DOCUSATE SODIUM 8.6/50 MG TAB FEEDTUBE SCH (22:23)
[2020-08-31] MEDS: LACTULOSE 20 GM/30 ML ORAL LIQD PO SCH ×3 (00:06→12:18)
[2020-08-31] MEDS: INSULIN REGULAR, HUMAN 100 UNITS/1 ML SUB-Q SCH ×4 (00:45→19:00)
[2020-08-31] MEDS: MINERAL OIL/PETROLATUM, WHITE OPHTH OINT 3.5 GM OU PRN (01:17)
[2020-08-31] MEDS: fentaNYL DRIP Premix 2,000 MCG/100 ML BAG IV SCH ×2 (03:11→18:13)
[2020-08-31 06:11] LABS: Basophils # (Auto) 0.1 K/mm3 (0.0-0.1); Basophils % (Auto) 0.8 % (0.0-1.8); Hematocrit 29.8 % (30.3-42.9); Hemoglobin 9.6 gm/dl (10.1-14.3); Lymphocytes # (Auto) 0.9 K/mm3 (1.2-5.4); Lymphocytes % (Auto) 6.9 % (13.4-35.0); Mean Corpuscular HGB Conc 32 % (30-34); Mean Corpuscular Volume 105 fl (79-97); Monocytes # (Auto) 0.6 K/mm3 (0.0-0.8); Monocytes % (Auto) 4.5 % (0.0-7.3); Red Blood Count 2.83 M/mm3 (3.65-5.03); Red Cell Distribution Width 18.9 % (13.2-15.2)
[2020-08-31 06:22] LABS: INR 0.9 (0.87-1.13)
[2020-08-31 06:30] LABS: Calcium 7.6 mg/dL (8.4-10.2)
[2020-08-31 06:33] LABS: Platelet Count 88 K/mm3 (140-440)
--- NOTE | 2020-08-31 06:48 | XRay Report ---
CHEST 1 VIEW, 08/31/2020 1:51 AM CLINICAL INFORMATION/INDICATION: Respiratory failure COMPARISON: Chest radiograph, 08/30/2020 at 3:53 PM FINDINGS: SUPPORT DEVICES: Support tubes and lines project in stable position. HEART: There is stable enlargement of the cardiac silhouette. LUNGS/PLEURA: Faint perihilar pulmonary opacities have not significantly changed. No pneumothorax is visualized. ADDITIONAL FINDINGS: No additional acute findings. IMPRESSION: 1. Stable appearance of the chest. Signer Name: Loree Loera MD Signed: 08/31/2020 6:43 AM Workstation Name: [id number]
[2020-08-31] MEDS: HEPARIN 5,000 UNIT/1 ML VIAL SUB-Q SCH ×3 (06:54→21:48)
--- NOTE | 2020-08-31 08:32 | Consultation ---
DATE OF CONSULTATION: 08/30/2020 PULMONARY CRITICAL CARE CONSULTATION CONSULTING PHYSICIAN: Dr. Herbert Morse. REASON FOR CONSULTATION: Cardiac arrest with return of spontaneous circulation. CHIEF COMPLAINT AND HISTORY OF PRESENT ILLNESS: As follows: The patient is a now 65-year-old female with past medical history of end-stage renal disease ,on dialysis; also multiple myeloma, status post chemotherapy and stem cell transplant, unclear her most recent immunosuppressive therapy. Emergency medical services were called to her residence for shortness of breath. Upon their arrival, they found her lying down in the driveway, initial rhythm was asystole. She was intubated and received ACLS protocol meds including epinephrine, calcium and sodium bicarbonate. She went into PEA, then there was ultimately return of spontaneous circulation. They report about 10 minutes of resuscitative effort. In the emergency room, she was evaluated by the emergency room physician. It does not seem like she needed to have the airway repositioned. ICU admission orders were written and consult was placed. Among her diagnosis included hypertensive urgency. When I stopped by to see her, she was resting in bed, just been wheeled up from the emergency room, she was having increased work of breathing. No witnessed seizures that I could see and no significant myoclonic jerks. I do not have any history with regards to vomiting or overt aspiration. The patient's tobacco use/abuse history is unknown. The above is much of the history of presentation as I have. PAST MEDICAL HISTORY: End-stage renal disease, on dialysis, multiple myeloma, diabetes and hypertension. PAST SURGICAL HISTORY: She has a right upper extremity AV fistula. MEDICATIONS: She was on at the time I stopped by to see according to the medication administration record included the following: Pepcid 20 mg IV daily, heparin 5000 units subQ q.8 hours, meropenem 500 mg IV q.24 hours, morphine 2 mg IV q.4 hours p.r.n. moderate pain, Zofran 4 mg IV q.8 hours p.r.n. nausea and vomiting. Propofol drip was going at 10 mcg per kilogram per minute. She had received azithromycin in the emergency room. ALLERGIES: Unknown. DIET: Thin, cachectic-looking lady, acute weight loss or gain history is unknown. SOCIAL HISTORY: Lives in the community. No current alcohol, tobacco or illicit drug use or abuse history as far as I can tell. Remote history is also unknown. FAMILY HISTORY: Otherwise unknown. REVIEW OF SYSTEMS: Unobtainable secondary to the patient's medical and mental condition. Since she has been here, no gross hematochezia or melena, no gross hematuria, no hematemesis, no bloody tracheal secretions, no witnessed seizures have been reported. Review of systems otherwise unobtainable or as in body of history above. PHYSICAL EXAMINATION: VITAL SIGNS: On presentation in the emergency room, initial temperature 97.9 degrees Fahrenheit, pulse was 84, respiratory rate was 24, blood pressure 108/47, O2 sats were 67, inspired oxygen concentration at that time was not recorded. When I stopped by to see her, her O2 sats were 98%. She was being bagged, but her ventilator settings were rate of 28, tidal volume of 450, PEEP of 6 and 60% FiO2. GENERAL: She is an elderly, chronically ill looking female. Normocephalic with abrasions to her skull from a fall reported at home and with moderately increased respiratory effort at rest. HEAD, EYES, EARS, NOSE AND THROAT: Anicteric. She had conjunctival erythema bilaterally. No thyromegaly. ET tube, I believe, was a #7. ET tube was taped at the lips around 23 cm. NECK: No gross jugular venous distention, no thyromegaly. Grossly, there were no palpable lymph nodes in the supraclavicular or submandibular lymph node chains. LUNGS: Auscultation of both lung kaye revealed bilateral rales and referred upper airway sounds, no wheezing. HEART: Sounds 1 and 2 are heard at the time of my evaluation, regular rate and rhythm without overt rubs or murmurs. ABDOMEN: Soft, full, bowel sounds are positive, nontender, no palpable hepatosplenomegaly. EXTREMITIES: Without overt digital clubbing or cyanosis, no pedal edema. She had a right upper extremity AV graft. Pedal pulses 2+ bilaterally. NEUROLOGIC: Pupils are equal, round, about 3 mm, sluggishly reactive to light. Extraocular muscle movements cannot be assessed. She had some spontaneous movements to her upper extremities while I was in the room, not following commands. SKIN: Poor turgor in the areas examined; however, without cellulitis or rash. Please see the wound care nurses' notes for full description of her skin. PSYCHIATRIC: Mood and affect could not be assessed. She was also on a propofol drip. LABORATORY DATA: From my review are as follows: White cell count 9800, hemoglobin 9.8, hematocrit 31.8, platelet count 95, 1% band neutrophils on the manual differential. D-dimer greater than 10,000. Arterial blood gas at presentation showed a pH of 7.20, pCO2 of 49, pO2 of 98 that was on 85% FiO2. Most recent ABG showed a pH of 7.33, pCO2 of 47 and a pO2 of 88 that was on 85% FiO2 and I believe the above-mentioned settings. Serum sodium was 141, potassium was 7.0, chloride was 99, bicarbonate was 18, BUN was 68, creatinine was 8.3, glucose 126, ferritin 830, AST 68. CRP 0.2. Troponin 0.085, elevated. Procalcitonin was elevated at 4.2. Hepatitis serology is negative. No microbiology studies for my review. DIAGNOSTIC DATA: Initial chest x-ray: ET tube in good position. Left Vas-Cath in place. She has gross cardiomegaly. There is also an implanted vascular catheter in the right upper anterior chest wall with the tip in the distal SVC/right atrial junction, bilateral pulmonary infiltrates with organizing consolidation in the right lower lobe, may be a combination of aspiration and pulmonary edema; however, no pleural effusions that I can see. A CT scan of her C-spine was also done. No CT abnormality of the C-spine. CT of the head, moderate size right frontal scalp hematoma, no CT evidence of an acute intracranial process. A CT angio I believe was also done. Contrast phase timing was not the best. However, I do not see any large order pulmonary emboli. Lung windows reveal diffuse bilateral pulmonary infiltrates over underlying emphysematous changes in the upper lobe in particular, moderate size pericardial effusions, moderate cardiomegaly. CT I believe of the abdomen and pelvis was done. Retained stool throughout the colon. Multiple loops of prominent fecalized small bowel, which may also be secondary to constipation. ASSESSMENT: 1. Cardiac arrest with return of spontaneous circulation. 2. Acute hypoxemic respiratory failure. 3. Bilateral pneumonia, possibly aspiration. 4. Bilateral pulmonary edema. 5. End-stage renal disease, on dialysis. 6. Severe hyperkalemia. 7. History of multiple myeloma. 8. History of hypertension. 9. Anemia that is microcytic. 10. Elevated serum troponin. 11. Zlr-WB-ehbmerynt myocardial infarction. PLAN: She has been seen by the city director and I believe emergent dialysis was the plan. I will defer to them in management of the azotemia and the hyperkalemia and electrolyte disarrangements. For now, she will remain on mechanical ventilatory support. I will go ahead and add fentanyl for sedation. Clinical exam suggests she may have suffered some significant anoxic injury. I will defer to the neurologist as the workup is already ongoing. I do believe she will benefit from further testing. Ventilator-associated pneumonia bundle has been introduced. Oxygen will be weaned to keep sats greater than or equal to about 92%. I will be testing her for coronavirus-19. I will put her on contact and airborne precautions empirically. Bronchodilators routine and pulmonary hygiene will be per the respiratory therapist. She is appropriately on GI prophylaxis and DVT prophylaxis. I do believe lower extremity Dopplers have also been done and negative for DVT, so we will continue the DVT prophylaxis doses of heparin. Vasopressors as necessary to keep mean arterial pressures greater than or equal to about 65 mmHg. Flu and pneumonia vaccination will be addressed per protocol. Thank you very much for the consult. We will follow along. We will make further recommendations as picture progresses/becomes clearer. She is critically ill on life-sustaining interventions including mechanical ventilatory support at very high risk of from cardiopulmonary system decompensation. At this time, I have spent about 35-40 minutes of critical care time without overlap and excluding any procedural time that may be necessary. TID: [id number] RECEIPT: [id number] CASSIA/LYUBOV/DARIO LAWSON
[2020-08-31] MEDS ORDERED: SODIUM POLYSTYRENE 15 GM/60 ML ORAL LIQD PO ONE (09:00)
[2020-08-31] MEDS ORDERED: INSULIN REGULAR, HUMAN 100 UNITS/1 ML IV SCH (09:00)
[2020-08-31] MEDS ORDERED: CALCIUM GLUCONATE 1,000 MG in SODIUM CHLORIDE 0.9% 100 ML IV ONE (09:00)
[2020-08-31] MEDS ORDERED: DEXTROSE 50% IN WATER (25GM) 50 ML SYRINGE IV ONE (09:00)
[2020-08-31] MEDS ORDERED: SODIUM BICARB 8.4% 50 MEQ/50 ML SYRINGE IV ONE (09:00)
[2020-08-31] MEDS: FAMOTIDINE 20 MG/2 ML INJ IV SCH (09:28)
[2020-08-31] MEDS: SENNOSIDES/DOCUSATE SODIUM 8.6/50 MG TAB FEEDTUBE SCH ×2 (09:28→21:48)
--- NOTE | 2020-08-31 11:19 | Progress Note ---
Assessment and Plan - Patient Problems (1) Hyperkalemia Current Visit: Yes Status: Acute Plan to address problem: Emergent dialysis was done for hyperkalemia yesterday. Potassium is still high today. Hemodialysis again today. Follow-up potassium (2) Cardiac arrest Current Visit: Yes Status: Acute Plan to address problem: Etiology uncertain. Cardiology evaluating patient. (3) End-stage renal disease on hemodialysis Current Visit: Yes Status: Acute Plan to address problem: Hemodialysis was done yesterday. Patient is on a Sunday, Sunday/Sunday sched ule. Hemodialysis again today for solute clearance due to hyperkalemia (4) Hypertensive urgency Current Visit: Yes Status: Acute Plan to address problem: Blood pressure was elevated on presentation but has improved. Follow-up blood pressure (5) Bilateral pulmonary infiltrates on chest x-ray Current Visit: Yes Status: Acute Plan to address problem: Probably secondary to pulmonary edema. Possibility of multifocal pneumonia being entertained. Continue antibiotics -meropenem per infectious disease. Fol low-up cultures Subjective Date of service: 08/31/20 Principal diagnosis: Hyperkalemia, cardiac arrest Interval history: Patient seen lying in bed in the ICU. Condition is about the same. She has not on vasopressors. She is on fentanyl and Diprivan infusions. Her potassium was again high this morning Objective - Exam Narrative Exam: Middle-aged -[place] female lying in bed in ICU intubated on ventilator on Diprivan and fentanyl infusions HEENT: NCAT, moving her eyes not purposefully, Neck: Supple, no venous distention CVS: S1S2 RRR with no murmur, rub or gallop Chest: Clear to auscultation Abdomen: Protuberant, soft to firm, nontender, no organomegaly, bowel sounds are present Extremities: No edema Genitourinary deferred Skin warm and dry no rash Neuro: Eyes open, moving her eyes nonpurposefully, not following commands - Vital Signs Vital signs: Vital Signs - 12hr 08/30/20 08/30/20 08/30/20 23:20 23:27 23:30 Temperature 98.4 F Pulse Rate 83 84 Pulse Rate [ From Monitor] Respiratory 28 H 28 H Rate Blood Pressure 121/41 121/41 O2 Sat by Pulse 100 100 Oximetry 08/30/20 08/30/20 08/30/20 23:40 23:41 23:49 Temperature Pulse Rate 86 85 84 Pulse Rate [ From Monitor] Respiratory 28 H 28 H Rate Blood Pressure 120/46 121/41 O2 Sat by Pulse 99 99 100 Oximetry 08/30/20 08/31/20 08/31/20 23:50 00:00 00:10 Temperature Pulse Rate 86 85 87 Pulse Rate [ 85 From Monitor] Respiratory 28 H 28 H 28 H Rate Blood Pressure 120/46 116/49 O2 Sat by Pulse 100 99 100 Oximetry 08/31/20 08/31/20 08/31/20 00:20 00:30 00:40 Temperature Pulse Rate 86 87 86 Pulse Rate [ From Monitor] Respiratory 28 H 28 H 28 H Rate Blood Pressure 116/49 116/49 113/45 O2 Sat by Pulse 99 100 100 Oximetry 08/31/20 08/31/20 08/31/20 00:50 01:00 01:10 Temperature Pulse Rate 85 87 86 Pulse Rate [ From Monitor] Respiratory 28 H 28 H 28 H Rate Blood Pressure 113/45 113/45 99/48 O2 Sat by Pulse 100 100 100 Oximetry 08/31/20 08/31/20 08/31/20 01:20 01:30 01:40 Temperature Pulse Rate 87 89 88 Pulse Rate [ From Monitor] Respiratory 28 H 28 H 28 H Rate Blood Pressure 99/48 99/48 98/50 O2 Sat by Pulse 100 100 100 Oximetry 08/31/20 08/31/20 08/31/20 01:50 02:00 02:10 Temperature Pulse Rate 89 87 88 Pulse Rate [ From Monitor] Respiratory 28 H 28 H 28 H Rate Blood Pressure 98/50 118/46 118/46 O2 Sat by Pulse 100 100 100 Oximetry 08/31/20 08/31/20 08/31/20 02:20 02:30 02:40 Temperature Pulse Rate 88 88 88 Pulse Rate [ From Monitor] Respiratory 28 H 28 H 28 H Rate Blood Pressure 118/46 118/46 110/48 O2 Sat by Pulse 100 100 100 Oximetry 08/31/20 08/31/20 08/31/20 02:50 03:00 03:10 Temperature Pulse Rate 88 89 90 Pulse Rate [ From Monitor] Respiratory 28 H 28 H 28 H Rate Blood Pressure 110/48 110/48 114/51 O2 Sat by Pulse 100 100 100 Oximetry 08/31/20 08/31/20 08/31/20 03:20 03:23 03:30 Temperature 98.9 F Pulse Rate 86 87 Pulse Rate [ From Monitor] Respiratory 28 H 28 H Rate Blood Pressure 114/51 114/51 O2 Sat by Pulse 100 100 Oximetry 08/31/20 08/31/20 08/31/20 03:40 03:50 04:00 Temperature Pulse Rate 87 91 H 86 Pulse Rate [ 86 From Monitor] Respiratory 28 H 27 H 28 H Rate Blood Pressure 114/51 114/51 114/51 O2 Sat by Pulse 100 100 100 Oximetry 08/31/20 08/31/20 08/31/20 04:10 04:20 04:30 Temperature Pulse Rate 83 84 86 Pulse Rate [ From Monitor] Respiratory 28 H 28 H 28 H Rate Blood Pressure 114/46 114/46 114/46 O2 Sat by Pulse 100 100 100 Oximetry 08/31/20 08/31/20 08/31/20 04:40 04:50 05:00 Temperature Pulse Rate 88 88 88 Pulse Rate [ From Monitor] Respiratory 28 H 28 H 28 H Rate Blood Pressure 98/47 98/47 115/45 O2 Sat by Pulse 100 100 99 Oximetry 08/31/20 08/31/20 08/31/20 05:10 05:20 05:30 Temperature Pulse Rate 90 91 H 90 Pulse Rate [ From Monitor] Respiratory 28 H 28 H 28 H Rate Blood Pressure 115/45 115/45 114/45 O2 Sat by Pulse 100 100 100 Oximetry 08/31/20 08/31/20 08/31/20 05:40 05:50 05:53 Temperature Pulse Rate 91 H 89 91 H Pulse Rate [ From Monitor] Respiratory 28 H 28 H Rate Blood Pressure 111/43 111/43 111/43 O2 Sat by Pulse 100 100 100 Oximetry 08/31/20 08/31/20 08/31/20 06:00 06:10 06:20 Temperature Pulse Rate 89 89 90 Pulse Rate [ From Monitor] Respiratory 28 H 28 H 28 H Rate Blood Pressure 111/43 118/43 118/43 O2 Sat by Pulse 100 100 100 Oximetry 08/31/20 08/31/20 08/31/20 06:30 06:40 06:50 Temperature Pulse Rate 90 90 90 Pulse Rate [ From Monitor] Respiratory 28 H 28 H 28 H Rate Blood Pressure 109/41 109/41 109/41 O2 Sat by Pulse 100 100 100 Oximetry 08/31/20 08/31/2008/31/21 07:00 07:10 07:20 Temperature Pulse Rate 89 90 88 Pulse Rate [ From Monitor] Respiratory 28 H 28 H 28 H Rate Blood Pressure 118/45 109/41 109/41 O2 Sat by Pulse 100 100 100 Oximetry 08/31/20 08/31/20 08/31/20 07:30 07:40 07:50 Temperature Pulse Rate 86 85 84 Pulse Rate [ From Monitor] Respiratory 28 H 28 H 28 H Rate Blood Pressure 108/48 102/51 102/51 O2 Sat by Pulse 100 100 100 Oximetry 08/31/20 08/31/20 08/31/20 08:00 08:10 08:13 Temperature 98.0 F Pulse Rate 81 82 84 Pulse Rate [ From Monitor] Respiratory 28 H 28 H Rate Blood Pressure 102/51 102/51 121/52 O2 Sat by Pulse 99 100 98 Oximetry 08/31/20 08/31/20 08/31/20 08:20 08:30 08:40 Temperature Pulse Rate 83 84 84 Pulse Rate [ From Monitor] Respiratory 28 H 28 H 28 H Rate Blood Pressure 102/51 102/51 115/52 O2 Sat by Pulse 100 97 98 Oximetry 08/31/20 08/31/20 08/31/20 08:50 09:00 09:10 Temperature Pulse Rate 82 85 83 Pulse Rate [ From Monitor] Respiratory 28 H 28 H 30 H Rate Blood Pressure 115/52 115/52 102/54 O2 Sat by Pulse 97 98 98 Oximetry 08/31/20 08/31/20 08/31/20 09:20 09:30 09:40 Temperature Pulse Rate 83 84 86 Pulse Rate [ From Monitor] Respiratory 28 H 28 H 28 H Rate Blood Pressure 102/54 102/54 129/54 O2 Sat by Pulse 98 98 99 Oximetry 08/31/20 08/31/20 08/31/20 09:50 10:00 10:10 Temperature Pulse Rate 86 92 H 96 H Pulse Rate [ From Monitor] Respiratory 28 H 28 H 28 H Rate Blood Pressure 129/54 129/54 126/57 O2 Sat by Pulse 98 98 99 Oximetry 08/31/20 08/31/20 10:20 10:30 Temperature Pulse Rate 99 H 98 H Pulse Rate [ From Monitor] Respiratory 28 H 28 H Rate Blood Pressure 129/54 129/54 O2 Sat by Pulse 98 99 Oximetry - Lab 08/31/20 05:45 08/31/20 05:45 Most recent lab results ABG pH 7.498 (7.320-7.450) H 08/31/20 04:07 ABG O2 Saturation 98.7 (0-100) 08/31/20 04:07 Calcium 7.6 mg/dL (8.4-10.2) L 08/31/20 05:45 Phosphorus 11.50 mg/dL (2.5-4.5) H 08/30/20 00:15 Magnesium 3.80 mg/dL (1.7-2.3) H 08/30/20 00:15 Medications & Allergies - Medications Allergies/Adverse Reactions: Allergies No Known Allergies Allergy (Verified 08/30/20 22:43) Home Medications: Home Medications Medication Instructions Recorded Confirmed Last Taken Type Acyclovir [Zovirax Tab] 400 mg PO BID 08/30/20 08/30/20 Unknown History Amlodipine Besylate 10 mg PO DAILY 08/30/20 08/30/20 Unknown History Furosemide [Lasix] 40 mg PO DAILY 08/30/20 08/30/20 Unknown History Gabapentin [Neurontin] 600 mg PO BID 08/30/20 08/30/20 Unknown History Imdur ER 30 mg PO DAILY 08/30/20 08/30/20 Unknown History Losartan Potassium 50 mg PO BID 08/30/20 08/30/20 Unknown History Losartan/Hydrochlorothiazide 1 each PO DAILY 08/30/20 08/30/20 Unknown History [Losartan-Hctz 100-25 mg Tab] Metoprolol Tartrate 25 mg PO BID 08/30/20 08/30/20 Unknown History Mirtazapine [Remeron] 30 mg PO HS 08/30/20 08/30/20 Unknown History Sevelamer Carbonate [Renvela] 800 mg PO TIDWM 08/30/20 08/30/20 Unknown History Vit B Complx C/Folic Acid/Zinc 0.8 mg PO DAILY 08/30/20 08/30/20 Unknown History [Dialyvite 800-Zinc 15 Tab] Zolpidem Tartrate [Edluar SUBL] 5 mg PO QHS PRN 08/30/20 08/30/20 Unknown History calcitrioL 0.5 mcg PO DAILY 08/30/20 08/30/20 Unknown History Active Medications: Generic Name Dose Route Start Last Admin Trade Name Freq PRN Reason Stop Dose Admin Lipase/Protease/Amylase 1 each 08/30/20 14:27 Lipase 10,500/Protease 25,000/Amylase 43,750 (Units) Dr Cap FEEDTUBE PRN PRN For Clogged Feeding Tube Dextrose 50 ml 08/30/20 19:48 Dextrose 50% In Water (25gm) 50 Ml Syringe IV Q30MIN PRN Hypoglycemia Protocol Famotidine 20 mg 08/30/20 10:00 08/31/20 09:28 Famotidine 20 Mg/2 Ml Inj IV 20 mg DAILY ANIYAH Administration Fentanyl 50 mcg 08/30/20 14:05 Fentanyl 100 Mcg/2 Ml Inj IV Q10MIN PRN ANALGESIA Heparin Sodium (Porcine) 5,000 unit 08/30/20 06:00 08/31/20 06:54 Heparin 5,000 Unit/1 Ml Vial SUB-Q 5,000 unit Q8HR ANIYAH Administration Hydrophilic Ointment 1 applic 08/30/20 14:05 Lip Therapy Vaseline TP Q2HR PRN Dry Lips Sodium Chloride 100 mls @ 999 mls/hr 08/30/20 09:00 Nacl 0.9% IV ARMIDA PRN Hypotension Propofol 1,000 mg in 100 mls @ 2.381 mls/hr 08/30/20 13:00 08/31/20 08:30 Diprivan 10 Mg/Ml IV 0 mcg/kg/min TITR ANIYAH 0 mls/hr Titration Protocol 5 MCG/KG/MIN Meropenem 500 mg in 50 mls @ 50 mls/hr 08/30/20 14:00 08/30/20 18:30 Merrem/Ns 500 Mg/50 Ml IV Infused Q24H ANIYAH Infusion Fentanyl Citrate 2,000 mcg in 100 mls @ 3.969 mls/hr 08/30/20 15:00 08/31/20 03:11 Fentanyl Drip Premix IV 2 mcg/kg/hr TITR ANIYAH 7.938 mls/hr Administration Protocol 1 MCG/KG/HR Insulin Human Regular 0 units 08/31/20 00:01 08/31/20 06:55 Insulin Regular, Human 100 Units/1 Ml SUB-Q 3 units Q6H ANIYAH Administration Protocol Lactulose 20 gm 08/30/20 15:00 08/31/20 06:54 Lactulose 20 Gm/30 Ml Oral Liqd PO 09/01/20 14:59 20 gm Q6HR ANIYAH Administration Magnesium Hydroxide 30 ml 08/30/20 04:41 Magnesium Hydroxide (Mom) Oral Liqd Udc PO Q4H PRN Constipation Multi-Ingred Cream/Lotion/Oil/Oint 1 applic 08/30/20 14:05 08/31/20 01:17 Mineral Oil/Petrolatum, White Ophth Oint 3.5 Gm OU 1 applic Q4HR PRN Administration Dry Eye(s) Ondansetron HCl 4 mg 08/30/20 04:41 Ondansetron 4 Mg/2 Ml Inj IV Q8H PRN Nausea And Vomiting Senna/Docusate Sodium 1 tab 08/30/20 22:00 08/31/20 09:28 Sennosides/Docusate Sodium 8.6/50 Mg Tab FEEDTUBE 1 tab BID ANIYAH Administration Simple Syrup 15 ml 08/30/20 14:27 Simple Syrup 15 Ml FEEDTUBE PRN PRN Hypoglycemia Simple Syrup 30 ml 08/30/20 14:27 Simple Syrup 15 Ml FEEDTUBE PRN PRN Hypoglycemia Sodium Bicarbonate 325 mg 08/30/20 14:27 Sodium Bicarbonate 325 Mg Tab FEEDTUBE PRN PRN For Clogged Feeding Tube Sodium Chloride 10 ml 08/30/20 10:00 08/30/20 22:23 Sodium Chloride 0.9% 10 Ml Flush Syringe IV 10 ml BID ANIYAH Administration Sodium Chloride 10 ml 08/30/20 04:41 Sodium Chloride 0.9% 10 Ml Flush Syringe IV PRN PRN LINE FLUSH
--- NOTE | 2020-08-31 11:26 | Progress Note ---
Assessment and Plan Out of hospital cardiopulmonary arrest no evidence of DVT by LE duplex End-stage renal disease on hemodialysis Hx of multiple myeloma s/p chemotherapy Hypertension Diabetes Echocardiogram report is pending. Supportive cardiac management. Subjective Date of service: 08/31/20 Principal diagnosis: Hyperkalemia, cardiac arrest Interval history: Patient is unresponsive, on the ventilator. Awaits hemodialysis for hyperkalemia Objective Vital Signs Temp Pulse Pulse Resp BP BP Pulse Ox 08/31/20 10:30 98 H 28 H 129/54 99 08/31/20 10:20 99 H 28 H 129/54 98 08/31/20 10:10 96 H 28 H 126/57 99 08/31/20 10:00 92 H 28 H 129/54 98 08/31/20 09:50 86 28 H 129/54 98 08/31/20 09:40 86 28 H 129/54 99 08/31/20 09:30 84 28 H 102/54 98 08/31/20 09:20 83 28 H 102/54 98 08/31/20 09:10 83 30 H 102/54 98 08/31/20 09:00 85 28 H 115/52 98 08/31/20 08:50 82 28 H 115/52 97 08/31/20 08:40 84 28 H 115/52 98 08/31/20 08:30 84 28 H 102/51 97 08/31/20 08:20 83 28 H 102/51 100 08/31/20 08:13 84 121/52 98 08/31/20 08:10 82 28 H 102/51 100 08/31/20 08:00 98.0 F 81 28 H 102/51 99 08/31/20 07:50 84 28 H 102/51 100 08/31/20 07:40 85 28 H 102/51 100 08/31/20 07:30 86 28 H 108/48 100 08/31/20 07:20 88 28 H 109/41 100 08/31/20 07:10 90 28 H 109/41 100 08/31/20 07:00 89 28 H 118/45 100 08/31/20 06:50 90 28 H 109/41 100 08/31/20 06:40 90 28 H 109/41 100 08/31/20 06:30 90 28 H 109/41 100 08/31/20 06:20 90 28 H 118/43 100 08/31/20 06:10 89 28 H 118/43 100 08/31/20 06:00 89 28 H 111/43 100 08/31/20 05:53 91 H 111/43 100 08/31/20 05:50 89 28 H 111/43 100 08/31/20 05:40 91 H 28 H 111/43 100 08/31/20 05:30 90 28 H 114/45 100 08/31/20 05:20 91 H 28 H 115/45 100 08/31/20 05:10 90 28 H 115/45 100 08/31/20 05:00 88 28 H 115/45 99 08/31/20 04:50 88 28 H 98/47 100 08/31/20 04:40 88 28 H 98/47 100 08/31/20 04:30 86 28 H 114/46 100 08/31/20 04:20 84 28 H 114/46 100 08/31/20 04:10 83 28 H 114/46 100 08/31/20 04:00 86 86 28 H 114/51 100 08/31/20 03:50 91 H 27 H 114/51 100 08/31/20 03:40 87 28 H 114/51 100 08/31/20 03:30 87 28 H 114/51 100 08/31/20 03:23 98.9 F 08/31/20 03:20 86 28 H 114/51 100 08/31/20 03:10 90 28 H 114/51 100 08/31/20 03:00 89 28 H 110/48 100 08/31/20 02:50 88 28 H 110/48 100 08/31/20 02:40 88 28 H 110/48 100 08/31/20 02:30 88 28 H 118/46 100 08/31/20 02:20 88 28 H 118/46 100 08/31/20 02:10 88 28 H 118/46 100 08/31/20 02:00 87 28 H 118/46 100 08/31/20 01:50 89 28 H 98/50 100 08/31/20 01:40 88 28 H 98/50 100 08/31/20 01:30 89 28 H 99/48 100 08/31/20 01:20 87 28 H 99/48 100 08/31/20 01:10 86 28 H 99/48 100 08/31/20 01:00 87 28 H 113/45 100 08/31/20 00:50 85 28 H 113/45 100 08/31/20 00:40 86 28 H 113/45 100 08/31/20 00:30 87 28 H 116/49 100 08/31/20 00:20 86 28 H 116/49 99 08/31/20 00:10 87 28 H 116/49 100 08/31/20 00:00 85 85 28 H 120/46 99 08/30/20 23:50 86 28 H 100 08/30/20 23:49 84 121/41 100 08/30/20 23:41 85 28 H 99 08/30/20 23:40 86 28 H 120/46 99 08/30/20 23:30 84 28 H 121/41 100 08/30/20 23:27 98.4 F 08/30/20 23:20 83 28 H 121/41 100 08/30/20 23:10 83 28 H 121/41 100 08/30/20 23:00 83 28 H 124/49 100 08/30/20 22:50 82 28 H 124/49 100 08/30/20 22:43 82 28 H 124/49 100 08/30/20 22:41 81 28 H 124/49 100 08/30/20 22:31 81 28 H 124/49 100 08/30/20 22:21 82 28 H 122/48 100 08/30/20 22:11 81 28 H 122/48 100 08/30/20 22:01 82 28 H 122/48 100 08/30/20 22:00 81 08/30/20 21:51 82 28 H 120/43 100 08/30/20 21:41 82 28 H 120/43 100 08/30/20 21:31 84 28 H 120/43 99 08/30/20 21:21 83 28 H 125/46 99 08/30/20 21:11 84 28 H 125/46 99 08/30/20 21:01 85 28 H 122/46 99 08/30/20 20:51 82 28 H 125/46 100 08/30/20 20:43 81 125/46 99 08/30/20 20:41 81 28 H 125/46 100 08/30/20 20:31 81 28 H 125/46 100 08/30/20 20:21 82 28 H 132/43 100 08/30/20 20:11 82 28 H 132/43 100 08/30/20 20:01 81 28 H 132/43 100 08/30/20 20:00 97.7 F 81 32 H 99 08/30/20 19:51 80 28 H 128/47 100 08/30/20 19:41 81 28 H 128/47 100 08/30/20 19:31 80 28 H 128/47 100 08/30/20 19:21 83 28 H 115/52 100 08/30/20 19:11 84 28 H 115/52 100 08/30/20 19:01 82 28 H 115/52 100 08/30/20 18:51 82 28 H 104/49 100 08/30/20 18:41 84 28 H 104/49 100 08/30/20 18:31 89 28 H 104/49 100 08/30/20 18:21 86 28 H 123/56 100 08/30/20 18:11 86 28 H 123/56 100 08/30/20 18:01 85 28 H 122/53 100 08/30/20 17:51 86 28 H 120/49 100 08/30/20 17:41 86 28 H 120/49 100 08/30/20 17:40 98.4 F 08/30/20 17:30 87 28 H 123/56 100 08/30/20 17:21 87 28 H 100 08/30/20 17:11 87 28 H 100 08/30/20 17:03 80 18 172/76 08/30/20 16:38 91 H 126/53 99 08/30/20 16:00 32 H 99 08/30/20 14:18 98 H 160/76 98 08/30/20 13:31 102 H 28 H 158/73 100 08/30/20 13:21 103 H 34 H 172/76 100 08/30/20 13:15 98.4 F 76 32 H 172/76 08/30/20 13:11 104 H 33 H 171/80 100 08/30/20 13:01 113 H 35 H 171/80 99 08/30/20 12:45 105 H 31 H 190/76 99 08/30/20 12:31 107 H 36 H 182/86 100 08/30/20 12:30 106 H 182/86 08/30/20 12:15 100 H 33 H 175/85 99 06/14/21 12:01 101 H 34 H 175/80 100 08/30/20 12:00 99 H 175/80 08/30/20 11:45 97 H 35 H 173/77 99 08/30/20 11:41 97.2 F L 08/30/20 11:31 95 H 33 H 176/81 100 08/30/20 11:30 93 H 176/81 08/30/20 11:26 95 H 176/81 100 Pulse Ox 08/31/20 10:30 08/31/20 10:20 08/31/20 10:10 08/31/20 10:00 08/31/20 09:50 08/31/20 09:40 08/31/20 09:30 08/31/20 09:20 08/31/20 09:10 08/31/20 09:00 08/31/20 08:50 08/31/20 08:40 08/31/20 08:30 08/31/20 08:20 08/31/20 08:13 08/31/20 08:10 08/31/20 08:00 08/31/20 07:50 08/31/20 07:40 08/31/20 07:30 08/31/20 07:20 08/31/20 07:10 08/31/20 07:00 08/31/20 06:50 08/31/20 06:40 08/31/20 06:30 08/31/20 06:20 08/31/20 06:10 08/31/20 06:00 08/31/20 05:53 08/31/20 05:50 08/31/20 05:40 08/31/20 05:30 08/31/20 05:20 08/31/20 05:10 08/31/20 05:00 08/31/20 04:50 08/31/20 04:40 08/31/20 04:30 08/31/20 04:20 08/31/20 04:10 08/31/20 04:00 08/31/20 03:50 08/31/20 03:40 08/31/20 03:30 08/31/20 03:23 08/31/20 03:20 08/31/20 03:10 08/31/20 03:00 08/31/20 02:50 08/31/20 02:40 08/31/20 02:30 08/31/20 02:20 08/31/20 02:10 08/31/20 02:00 08/31/20 01:50 08/31/20 01:40 08/31/20 01:30 08/31/20 01:20 08/31/20 01:10 08/31/20 01:00 08/31/20 00:50 08/31/20 00:40 08/31/20 00:30 08/31/20 00:20 08/31/20 00:10 08/31/20 00:00 08/30/20 23:50 08/30/20 23:49 08/30/20 23:41 08/30/20 23:40 08/30/20 23:30 08/30/20 23:27 08/30/20 23:20 08/30/20 23:10 08/30/20 23:00 08/30/20 22:50 08/30/20 22:43 08/30/20 22:41 08/30/20 22:31 08/30/20 22:21 08/30/20 22:11 08/30/20 22:01 08/30/20 22:00 08/30/20 21:51 08/30/20 21:41 08/30/20 21:31 08/30/20 21:21 08/30/20 21:11 08/30/20 21:01 08/30/20 20:51 08/30/20 20:43 08/30/20 20:41 08/30/20 20:31 08/30/20 20:21 08/30/20 20:11 08/30/20 20:01 08/30/20 20:00 08/30/20 19:51 08/30/20 19:41 08/30/20 19:31 08/30/20 19:21 08/30/20 19:11 08/30/20 19:01 08/30/20 18:51 08/30/20 18:41 08/30/20 18:31 08/30/20 18:21 08/30/20 18:11 08/30/20 18:01 08/30/20 17:51 08/30/20 17:41 08/30/20 17:40 08/30/20 17:30 08/30/20 17:21 08/30/20 17:11 08/30/20 17:03 08/30/20 16:38 08/30/20 16:00 08/30/20 14:18 08/30/20 13:31 08/30/20 13:21 08/30/20 13:15 100 08/30/20 13:11 08/30/20 13:01 08/30/20 12:45 08/30/20 12:31 08/30/20 12:30 08/30/20 12:15 08/30/20 12:01 08/30/20 12:00 08/30/20 11:45 08/30/20 11:41 08/30/20 11:31 08/30/20 11:30 08/30/20 11:26 - Physical Examination General: Other (unresponsive on the vent) HEENT: Positive: Other (Pupils fixed) Cardiac: Positive: Reg Rate and Rhythm Neuro: Positive: Other (Unresponsive, on the vent) Extremities: Absent: edema - Labs and Meds Cardiac Enzymes 08/30/20 Range/Units 15:03 AST 68 H (5-40) units/L Coagulation 08/31/20 Range/Units 05:45 PT 12.8 (12.2-14.9) Sec. INR 0.90 (0.87-1.13) CBC 08/30/20 08/31/20 Range/Units 15:03 05:45 WBC 17.2 H 13.1 H (4.5-11.0) K/mm3 RBC 3.23 L 2.83 L (3.65-5.03) M/mm3 Hgb 11.1 9.6 L (10.1-14.3) gm/dl Hct 34.9 29.8 L (30.3-42.9) % Plt Count 90 L 88 L (140-440) K/mm3 Lymph # (Auto) 0.9 L (1.2-5.4) K/mm3 [place] # (Auto) 0.6 (0.0-0.8) K/mm3 Eos # (Auto) 0.0 (0.0-0.4) K/mm3 Baso # (Auto) 0.1 (0.0-0.1) K/mm3 Comprehensive Metabolic Panel 08/30/20 08/31/20 Range/Units 15:03 05:45 Sodium 138 137 (137-145) mmol/L Potassium 6.5 H* D 7.1 H* (3.6-5.0) mmol/L Chloride 96.7 L 96.7 L (98-107) mmol/L Carbon Dioxide 21 L 23 (22-30) mmol/L BUN 52 H 74 H (7-17) mg/dL Creatinine 5.7 H 7.0 H (0.6-1.2) mg/dL Glucose 220 H 254 H (65-100) mg/dL Calcium 8.7 7.6 L (8.4-10.2) mg/dL AST 68 H (5-40) units/L ALT 41 (7-56) units/L Alkaline Phosphatase 364 H (35-129) units/L Total Protein 6.4 (6.3-8.2) g/dL Albumin 3.7 L (3.9-5) g/dL
--- NOTE | 2020-08-31 13:36 | Progress Note ---
Assessment and Plan Cultures: Blood cultures 08/30/2020 no growth so far Tracheal aspirate culture 08/30/2020 no growth so far A/P: 65 yo F PMH EFx ESRD on HD, multiple myeloma s/p chemo and BMT, DM2 presented after being found non-responsive. #Acute hypoxic respiratory failure: secondary to edema vs infection. Normal white count, afebrile (low temps right now). Proclacitonin likely to be falsely elevated in renal failure as it is renally excreted. Given pericardial effusion, most likely her resp failure is due to volume/hyperkalemia, however given her immunocompromised status will continue empiric antibiotics for now. #Multiple myeloma: s/p chemo and BMT. Unclear dates of these and status of remission/vaccinations. Will presume immunocompromised for now #ESRD on HD: renally dose medications #Hyperkalemia Recs: -Given potential for immunocompromise as above, will treat with meropenem for now. -I do presume her symptoms are more likely to fluid/electrolyte imabalance, as such will likely de-escalate shortly assuming infective data remains negative -Obtain tracheal aspirate culture -No evidence of fungal cavitations on CTA. Thank you for the consult, we will continue to follow. Ender Hale MD [facility] ([facility] O: [phone] F: [phone] Subjective Date of service: 08/31/20 Principal diagnosis: Hyperkalemia, cardiac arrest Interval history: Afebrile, white count improving now 13.1. Cultures remain negative. Imaging personally reviewed: Chest x-ray: Stable Objective - Exam Narrative Exam: Physical Exam: Constitutional: intubated, sedated Head, Ears, Nose: Normocephalic, atraumatic. External ears, nose normal Eyes: Conjunctivae/corneas clear. No icterus. No ptosis. Neck: ETT Oral: ETT Cardiovascular: S1, S2 normal. Respiratory: Good air entry, clear to auscultation bilaterally GI: Soft, non-tender; bowel sounds normal. No peritoneal signs. Musculoskeletal: No pedal edema, no cyanosis. Skin: No rash or abscess Hem/Lymphatic: No palpable cervical or supraclavicular nodes. No lymphangitis Psych: Sedated Neurological: Sedated - Constitutional Vitals: Vital Signs Temp Pulse Resp BP Pulse Ox 98.4 F 112 H 28 H 146/72 100 08/31/20 12:00 08/31/20 13:30 08/31/20 13:20 08/31/20 13:30 08/31/20 13:20 Temperature -Last 24 Hours Temperature 98.4 F Temperature 98.7 F Temperature 98.0 F Temperature 98.9 F Temperature 98.4 F Temperature 97.7 F Temperature 98.4 F - Labs CBC & Chem 7: 08/31/20 05:45 08/31/20 05:45 Labs: Abnormal lab results 08/30/20 08/30/20 08/30/20 Range/Units 15:03 15:03 17:27 WBC 17.2 H (4.5-11.0) K/mm3 RBC 3.23 L (3.65-5.03) M/mm3 Hgb (10.1-14.3) gm/dl Hct (30.3-42.9) % MCV 108 H (79-97) fl MCH 34 H (28-32) pg RDW 19.4 H (13.2-15.2) % Plt Count 90 L (140-440) K/mm3 Lymph % (Auto) (13.4-35.0) % Lymph # (Auto) (1.2-5.4) K/mm3 Seg Neutrophils % (40.0-70.0) % Seg Neutrophils # (1.8-7.7) K/mm3 ABG pH (7.320-7.450) POC ABG pCO2 (32.0-48.0) mmHg POC ABG pO2 (83-108) mmHg ABG Hemoglobin (12.0-17.5) ABG Oxyhemoglobin (94-98) ABG Sodium (136.0-145.0) mmol/L ABG Potassium (3.40-4.50) mmol/L ABG Glucose (65-95) mg/dL Carboxyhemoglobin (0.5-1.5) Potassium 6.5 H* D (3.6-5.0) mmol/L Chloride 96.7 L (98-107) mmol/L Carbon Dioxide 21 L (22-30) mmol/L BUN 52 H (7-17) mg/dL Creatinine 5.7 H (0.6-1.2) mg/dL Glucose 220 H (65-100) mg/dL POC Glucose 223 H (70-105) mg/dL Calcium (8.4-10.2) mg/dL AST 68 H (5-40) units/L Alkaline Phosphatase 364 H (35-129) units/L Albumin 3.7 L (3.9-5) g/dL Arterial Blood Glucose (65-95) mg/dL Arterial Blood Ionized Calcium (4.6-5.3) mg/dL 08/30/20 08/31/20 08/31/20 Range/Units 21:03 04:07 05:01 WBC (4.5-11.0) K/mm3 RBC (3.65-5.03) M/mm3 Hgb (10.1-14.3) gm/dl Hct (30.3-42.9) % MCV (79-97) fl MCH (28-32) pg RDW (13.2-15.2) % Plt Count (140-440) K/mm3 Lymph % (Auto) (13.4-35.0) % Lymph # (Auto) (1.2-5.4) K/mm3 Seg Neutrophils % (40.0-70.0) % Seg Neutrophils # (1.8-7.7) K/mm3 ABG pH 7.498 H (7.320-7.450) POC ABG pCO2 27.9 L (32.0-48.0) mmHg POC ABG pO2 126.9 H (83-108) mmHg ABG Hemoglobin 10.1 L (12.0-17.5) ABG Oxyhemoglobin 98.3 H (94-98) ABG Sodium 134.3 L (136.0-145.0) mmol/L ABG Potassium 6.7 H (3.40-4.50) mmol/L ABG Glucose 261 H (65-95) mg/dL Carboxyhemoglobin 0.1 L (0.5-1.5) Potassium (3.6-5.0) mmol/L Chloride (98-107) mmol/L Carbon Dioxide (22-30) mmol/L BUN (7-17) mg/dL Creatinine (0.6-1.2) mg/dL Glucose (65-100) mg/dL POC Glucose 230 H 256 H (70-105) mg/dL Calcium (8.4-10.2) mg/dL AST (5-40) units/L Alkaline Phosphatase (35-129) units/L Albumin (3.9-5) g/dL Arterial Blood Glucose 261 H (65-95) mg/dL Arterial Blood Ionized Calcium 3.6 L (4.6-5.3) mg/dL 08/31/20 08/31/20 08/31/20 Range/Units 05:45 05:45 11:38 WBC 13.1 H (4.5-11.0) K/mm3 RBC 2.83 L (3.65-5.03) M/mm3 Hgb 9.6 L (10.1-14.3) gm/dl Hct 29.8 L (30.3-42.9) % MCV 105 H (79-97) fl MCH 34 H (28-32) pg RDW 18.9 H (13.2-15.2) % Plt Count 88 L (140-440) K/mm3 Lymph % (Auto) 6.9 L (13.4-35.0) % Lymph # (Auto) 0.9 L (1.2-5.4) K/mm3 Seg Neutrophils % 87.8 H (40.0-70.0) % Seg Neutrophils # 11.5 H (1.8-7.7) K/mm3 ABG pH (7.320-7.450) POC ABG pCO2 (32.0-48.0) mmHg POC ABG pO2 (83-108) mmHg ABG Hemoglobin (12.0-17.5) ABG Oxyhemoglobin (94-98) ABG Sodium (136.0-145.0) mmol/L ABG Potassium (3.40-4.50) mmol/L ABG Glucose (65-95) mg/dL Carboxyhemoglobin (0.5-1.5) Potassium 7.1 H* (3.6-5.0) mmol/L Chloride 96.7 L (98-107) mmol/L Carbon Dioxide (22-30) mmol/L BUN 74 H (7-17) mg/dL Creatinine 7.0 H (0.6-1.2) mg/dL Glucose 254 H (65-100) mg/dL POC Glucose 294 H (70-105) mg/dL Calcium 7.6 L (8.4-10.2) mg/dL AST (5-40) units/L Alkaline Phosphatase (35-129) units/L Albumin (3.9-5) g/dL Arterial Blood Glucose (65-95) mg/dL Arterial Blood Ionized Calcium (4.6-5.3) mg/dL
[2020-08-31] MEDS: MEROPENEM/NS 500 MG/50 ML 500 MG/50 ML BAG IV SCH (14:29)
--- NOTE | 2020-08-31 15:00 | Progress Note ---
Assessment and Plan Cardiac arrest with return of spontaneous circulation Acute hypoxemic respiratory failure Bilateral pneumonia, possibly aspiration Bilateral pulmonary edema End-stage renal disease, on dialysis NSTEMI Severe hyperkalemia History of multiple myeloma History of hypertension Anemia that is microcytic Elevated serum troponin - MRI brain ordered amd will follow - HD/UF today re: hyperkalemiareduce set rate to 20/min - discontinue lactulose - get Random vancomycin Level - continue Daily SAT and SBT assessment as tolerated - continue to wean supplemental oxygen for target O2 sat's > 90% acutely - VAP bundle addressed - continue lung protective strategies - continue bronchodilators with pulmonary hygiene per RT - wean per pulmonary driven protocols otherwise - continue HD/UF for toxin and volume clearance - avoid nephrotoxins, renally dose all medications - continue accuchecks with glycemic control per SSI (While critically ill target blood glucose of 140-180 mg/dL; avoid hypoglycemia) - sedation prn for target RASS 0 to -1 - continue to avoid benzodiazepine's, reduce the possibility of delirium - complete AB's per ID rec's - prn analgesia per CPOT score - Maintenance of sleep-wake cycle, avoid delirium - continue enteral nutritional support at goal rate as tolerated - G.I. & VTE prophylaxis - PT/OT/ROM exercises - continue mobility protocols for pressure ulcer prophylaxis - Monitor hemodynamics closely - continue other care per attending / other consultants - discharge planning ongoing concurrently COVID SPECIFIC INTERVENTIONS - COVID PCR negative .... Re-evaluate in am & prn CONDITION: CRITICAL PROGNOSIS: GUARDED CODE STATUS: FULL CODE The high probability of a clinically significant, sudden or life-threatening deterioration of the [respiratory, cardiovascular, hematologic, renal & neurologic] system(s) required my full and direct attention, intervention and personal management. The aggregate critical care time was [33] minutes without overlap. Time includes spent on; [x] Data Review and interpretation [x] Patient assessment and monitoring of vital signs [x] Documentation [x] Medication orders and management Subjective Date of service: 08/31/20 Principal diagnosis: Hyperkalemia, cardiac arrest Interval history: Patient is seen today for: Cardiac arrest with ROSC; Acute hypoxemic respiratory failure; Aspiration Pneumonia; ESRD on dialysis; NSTEMI; Hyperkalemia; NSTEMI Seen and examined at bedside; 24hour events reviewed; nursing and respiratory care staff consulted; no adverse overnight events reported to me; resting peacefully in bed and riding set rate on MVS; no emesis or overt aspiration; appears obtunded really; had a large BM and lactulose held; afebrile Objective Vital Signs - 12hr 08/31/20 08/31/20 08/31/20 03:00 03:10 03:20 Temperature Pulse Rate 89 90 86 Pulse Rate [ From Monitor] Respiratory 28 H 28 H 28 H Rate Blood Pressure 110/48 114/51 114/51 O2 Sat by Pulse 100 100 100 Oximetry O2 Sat by Pulse Oximetry [ Bilateral Throughout] 08/31/20 08/31/20 08/31/20 03:23 03:30 03:40 Temperature 98.9 F Pulse Rate 87 87 Pulse Rate [ From Monitor] Respiratory 28 H 28 H Rate Blood Pressure 114/51 114/51 O2 Sat by Pulse 100 100 Oximetry O2 Sat by Pulse Oximetry [ Bilateral Throughout] 08/31/20 08/31/20 08/31/20 03:50 04:00 04:10 Temperature Pulse Rate 91 H 86 83 Pulse Rate [ 86 From Monitor] Respiratory 27 H 28 H 28 H Rate Blood Pressure 114/51 114/51 114/46 O2 Sat by Pulse 100 100 100 Oximetry O2 Sat by Pulse Oximetry [ Bilateral Throughout] 08/31/20 08/31/20 08/31/20 04:20 04:30 04:40 Temperature Pulse Rate 84 86 88 Pulse Rate [ From Monitor] Respiratory 28 H 28 H 28 H Rate Blood Pressure 114/46 114/46 98/47 O2 Sat by Pulse 100 100 100 Oximetry O2 Sat by Pulse Oximetry [ Bilateral Throughout] 08/31/20 08/31/20 08/31/20 04:50 05:00 05:10 Temperature Pulse Rate 88 88 90 Pulse Rate [ From Monitor] Respiratory 28 H 28 H 28 H Rate Blood Pressure 98/47 115/45 115/45 O2 Sat by Pulse 100 99 100 Oximetry O2 Sat by Pulse Oximetry [ Bilateral Throughout] 08/31/20 08/31/20 08/31/20 05:20 05:30 05:40 Temperature Pulse Rate 91 H 90 91 H Pulse Rate [ From Monitor] Respiratory 28 H 28 H 28 H Rate Blood Pressure 115/45 114/45 111/43 O2 Sat by Pulse 100 100 100 Oximetry O2 Sat by Pulse Oximetry [ Bilateral Throughout] 08/31/20 08/31/20 08/31/20 05:50 05:53 06:00 Temperature Pulse Rate 89 91 H 89 Pulse Rate [ From Monitor] Respiratory 28 H 28 H Rate Blood Pressure 111/43 111/43 111/43 O2 Sat by Pulse 100 100 100 Oximetry O2 Sat by Pulse Oximetry [ Bilateral Throughout] 08/31/20 08/31/20 08/31/20 06:10 06:20 06:30 Temperature Pulse Rate 89 90 90 Pulse Rate [ From Monitor] Respiratory 28 H 28 H 28 H Rate Blood Pressure 118/43 118/43 109/41 O2 Sat by Pulse 100 100 100 Oximetry O2 Sat by Pulse Oximetry [ Bilateral Throughout] 08/31/20 08/31/20 08/31/20 06:40 06:50 07:00 Temperature Pulse Rate 90 90 89 Pulse Rate [ From Monitor] Respiratory 28 H 28 H 28 H Rate Blood Pressure 109/41 109/41 118/45 O2 Sat by Pulse 100 100 100 Oximetry O2 Sat by Pulse Oximetry [ Bilateral Throughout] 08/31/20 08/31/20 08/31/20 07:10 07:20 07:30 Temperature Pulse Rate 90 88 86 Pulse Rate [ From Monitor] Respiratory 28 H 28 H 28 H Rate Blood Pressure 109/41 109/41 108/48 O2 Sat by Pulse 100 100 100 Oximetry O2 Sat by Pulse Oximetry [ Bilateral Throughout] 08/31/20 08/31/20 08/31/20 07:40 07:50 08:00 Temperature 98.0 F Pulse Rate 85 84 81 Pulse Rate [ 82 From Monitor] Respiratory 28 H 28 H 28 H Rate Blood Pressure 102/51 102/51 102/51 O2 Sat by Pulse 100 100 99 Oximetry O2 Sat by Pulse Oximetry [ Bilateral Throughout] 08/31/20 08/31/20 08/31/20 08:10 08:13 08:20 Temperature Pulse Rate 82 84 83 Pulse Rate [ From Monitor] Respiratory 28 H 28 H Rate Blood Pressure 102/51 121/52 102/51 O2 Sat by Pulse 100 98 100 Oximetry O2 Sat by Pulse Oximetry [ Bilateral Throughout] 08/31/20 08/31/20 08/31/20 08:30 08:40 08:50 Temperature Pulse Rate 84 84 82 Pulse Rate [ From Monitor] Respiratory 28 H 28 H 28 H Rate Blood Pressure 102/51 115/52 115/52 O2 Sat by Pulse 97 98 97 Oximetry O2 Sat by Pulse Oximetry [ Bilateral Throughout] 08/31/20 08/31/20 08/31/20 09:00 09:10 09:20 Temperature Pulse Rate 85 83 83 Pulse Rate [ From Monitor] Respiratory 28 H 30 H 28 H Rate Blood Pressure 115/52 102/54 102/54 O2 Sat by Pulse 98 98 98 Oximetry O2 Sat by Pulse Oximetry [ Bilateral Throughout] 08/31/20 08/31/20 08/31/20 09:30 09:40 09:50 Temperature Pulse Rate 84 86 86 Pulse Rate [ From Monitor] Respiratory 28 H 28 H 28 H Rate Blood Pressure 102/54 129/54 129/54 O2 Sat by Pulse 98 99 98 Oximetry O2 Sat by Pulse Oximetry [ Bilateral Throughout] 08/31/20 08/31/20 08/31/20 10:00 10:10 10:20 Temperature Pulse Rate 92 H 96 H 99 H Pulse Rate [ From Monitor] Respiratory 28 H 28 H 28 H Rate Blood Pressure 129/54 126/57 129/54 O2 Sat by Pulse 98 99 98 Oximetry O2 Sat by Pulse Oximetry [ Bilateral Throughout] 08/31/20 08/31/20 08/31/20 10:30 10:40 10:45 Temperature 98.7 F Pulse Rate 97 H 97 H 97 H Pulse Rate [ From Monitor] Respiratory 28 H 28 H Rate Blood Pressure 135/57 129/54 135/57 O2 Sat by Pulse 99 99 Oximetry O2 Sat by Pulse 100 Oximetry [ Bilateral Throughout] 08/31/20 08/31/20 08/31/20 10:50 11:00 11:10 Temperature Pulse Rate 96 H 102 H 106 H Pulse Rate [ From Monitor] Respiratory 28 H 28 H 28 H Rate Blood Pressure 135/57 135/57 192/55 O2 Sat by Pulse 99 100 100 Oximetry O2 Sat by Pulse Oximetry [ Bilateral Throughout] 08/31/20 08/31/20 08/31/20 11:15 11:20 11:30 Temperature Pulse Rate 104 H 105 H Pulse Rate [ From Monitor] Respiratory 28 H Rate Blood Pressure 148/65 192/55 145/69 O2 Sat by Pulse 100 100 Oximetry O2 Sat by Pulse Oximetry [ Bilateral Throughout] 08/31/20 08/31/20 08/31/20 11:40 11:45 11:50 Temperature Pulse Rate 104 H 109 H 108 H Pulse Rate [ From Monitor] Respiratory 28 H 28 H Rate Blood Pressure 145/69 140/68 140/68 O2 Sat by Pulse 100 100 Oximetry O2 Sat by Pulse Oximetry [ Bilateral Throughout] 08/31/20 08/31/20 08/31/20 12:00 12:01 12:10 Temperature 98.4 F Pulse Rate 109 H 111 H 107 H Pulse Rate [ 114 H From Monitor] Respiratory 28 H 28 H Rate Blood Pressure 140/68 132/64 132/64 O2 Sat by Pulse 99 100 Oximetry O2 Sat by Pulse Oximetry [ Bilateral Throughout] 08/31/20 08/31/20 08/31/20 12:15 12:20 12:30 Temperature Pulse Rate 113 H 114 H 116 H Pulse Rate [ From Monitor] Respiratory 28 H 28 H Rate Blood Pressure 143/69 143/69 143/69 O2 Sat by Pulse 100 100 Oximetry O2 Sat by Pulse Oximetry [ Bilateral Throughout] 08/31/20 08/31/20 08/31/20 12:40 12:41 12:45 Temperature Pulse Rate 112 H 112 H 113 H Pulse Rate [ From Monitor] Respiratory 28 H Rate Blood Pressure 142/76 142/76 150/74 O2 Sat by Pulse 100 100 Oximetry O2 Sat by Pulse Oximetry [ Bilateral Throughout] 08/31/20 08/31/20 08/31/20 12:50 13:00 13:10 Temperature Pulse Rate 113 H 114 H 113 H Pulse Rate [ From Monitor] Respiratory 28 H 28 H 28 H Rate Blood Pressure 150/74 150/74 143/38 O2 Sat by Pulse 100 100 100 Oximetry O2 Sat by Pulse Oximetry [ Bilateral Throughout] 08/31/20 08/31/20 08/31/20 13:15 13:20 13:30 Temperature Pulse Rate 114 H 114 H 112 H Pulse Rate [ From Monitor] Respiratory 28 H 28 H Rate Blood Pressure 164/77 150/74 150/74 O2 Sat by Pulse 100 100 Oximetry O2 Sat by Pulse Oximetry [ Bilateral Throughout] 08/31/20 08/31/20 08/31/20 13:40 13:45 13:50 Temperature Pulse Rate 112 H 115 H 114 H Pulse Rate [ From Monitor] Respiratory 28 H 28 H Rate Blood Pressure 146/72 166/74 166/74 O2 Sat by Pulse 100 100 Oximetry O2 Sat by Pulse Oximetry [ Bilateral Throughout] 08/31/20 08/31/20 08/31/20 14:00 14:10 14:15 Temperature Pulse Rate 116 H 115 H 114 H Pulse Rate [ From Monitor] Respiratory 28 H 28 H Rate Blood Pressure 166/74 158/75 194/76 O2 Sat by Pulse 100 100 Oximetry O2 Sat by Pulse Oximetry [ Bilateral Throughout] 08/31/20 14:30 Temperature 98.4 F Pulse Rate 115 H Pulse Rate [ From Monitor] Respiratory 28 H Rate Blood Pressure 194/76 O2 Sat by Pulse Oximetry O2 Sat by Pulse 100 Oximetry [ Bilateral Throughout] Constitutional: appears uncomfortable, other (elderly female with mildly increased respiratory effort at rest on MVS) Eyes: non-icteric ENT: oropharynx moist, other (ETT 23 cm COLLEEN) Neck: supple, no lymphadenopathy, no JVD Effort: mildly labored Ascultation: Bilateral: rhonchi (R>L base) Percussion: Bilateral: not dull Cardiovascular: regular rate and rhythm Gastrointestinal: normoactive bowel sounds, soft, non-tender, non-distended Integumentary: rash Extremities: no cyanosis, pulses normal, no ischemia or petechiae Neurologic: pupils equal and round, other Psychiatric: other (unable to assess re: AMS) CBC and BMP: 08/31/20 05:45 08/31/20 05:45 ABG, PT/INR, D-dimer: ABG ABG pH 7.498 (7.320-7.450) H 08/31/20 04:07 POC ABG pCO2 27.9 mmHg (32.0-48.0) L 08/31/20 04:07 POC ABG pO2 126.9 mmHg (83-108) H 08/31/20 04:07 POC ABG HCO3 21.2 08/31/20 04:07 ABG O2 Saturation 98.7 (0-100) 08/31/20 04:07 PT/INR, D-dimer PT 12.8 Sec. (12.2-14.9) 08/31/20 05:45 INR 0.90 (0.87-1.13) 08/31/20 05:45 D-Dimer > 10566 ng/mlDDU (0-234) H 08/30/20 03:10 Abnormal lab findings: Abnormal Labs 08/30/20 08/30/20 08/30/20 00:14 00:15 00:15 WBC RBC 2.83 L Hgb 9.8 L Hct MCV 112 H MCH 35 H RDW 19.9 H Plt Count 95 L Lymph % (Auto) Lymph # (Auto) Seg Neutrophils % Nucleated RBC % 1.0 H Seg Neutrophils # D-Dimer ABG pH 7.199 L POC ABG pCO2 49.3 H POC ABG pO2 ABG Hemoglobin 11.9 L ABG Oxyhemoglobin 93.0 L ABG Sodium ABG Potassium 6.9 H ABG Glucose 158 H Carboxyhemoglobin 2.8 H Potassium 7.0 H* Chloride Carbon Dioxide 18 L BUN 68 H Creatinine 8.3 H Glucose 174 H POC Glucose Calcium Phosphorus Magnesium Ferritin AST 68 H Alkaline Phosphatase 414 H Lactate Dehydrogenase Troponin T 0.085 H Total Protein 5.6 L Albumin 3.4 L HDL Cholesterol 66 H Arterial Blood Glucose 158 H Arterial Blood Ionized Calcium 08/30/20 08/30/20 08/30/20 00:15 00:15 03:10 WBC RBC Hgb Hct MCV MCH RDW Plt Count Lymph % (Auto) Lymph # (Auto) Seg Neutrophils % Nucleated RBC % Seg Neutrophils # D-Dimer 6083.16 H > 58472 H ABG pH POC ABG pCO2 POC ABG pO2 ABG Hemoglobin ABG Oxyhemoglobin ABG Sodium ABG Potassium ABG Glucose Carboxyhemoglobin Potassium Chloride Carbon Dioxide BUN Creatinine Glucose POC Glucose Calcium Phosphorus 11.50 H Magnesium 3.80 H Ferritin AST Alkaline Phosphatase Lactate Dehydrogenase Troponin T Total Protein Albumin HDL Cholesterol Arterial Blood Glucose Arterial Blood Ionized Calcium 08/30/20 08/30/20 08/30/20 03:10 03:10 04:49 WBC RBC Hgb Hct MCV MCH RDW Plt Count Lymph % (Auto) Lymph # (Auto) Seg Neutrophils % Nucleated RBC % Seg Neutrophils # D-Dimer ABG pH POC ABG pCO2 POC ABG pO2 ABG Hemoglobin 10.8 L ABG Oxyhemoglobin ABG Sodium ABG Potassium 6.7 H ABG Glucose 137 H Carboxyhemoglobin Potassium Chloride Carbon Dioxide BUN Creatinine Glucose 126 H POC Glucose Calcium Phosphorus Magnesium Ferritin 830.0 H AST Alkaline Phosphatase Lactate Dehydrogenase 400 H Troponin T Total Protein Albumin HDL Cholesterol Arterial Blood Glucose 137 H Arterial Blood Ionized Calcium 4.5 L 08/30/20 08/30/20 08/30/20 07:13 15:03 15:03 WBC 17.2 H RBC 3.23 L Hgb Hct MCV 108 H MCH 34 H RDW 19.4 H Plt Count 90 L Lymph % (Auto) Lymph # (Auto) Seg Neutrophils % Nucleated RBC % Seg Neutrophils # D-Dimer ABG pH POC ABG pCO2 POC ABG pO2 ABG Hemoglobin ABG Oxyhemoglobin ABG Sodium ABG Potassium ABG Glucose Carboxyhemoglobin Potassium 8.2 H* 6.5 H* D Chloride 96.7 L Carbon Dioxide 21 L BUN 52 H Creatinine 5.7 H Glucose 220 H POC Glucose Calcium Phosphorus Magnesium Ferritin AST 68 H Alkaline Phosphatase 364 H Lactate Dehydrogenase Troponin T Total Protein Albumin 3.7 L HDL Cholesterol Arterial Blood Glucose Arterial Blood Ionized Calcium 08/30/20 08/30/20 08/31/20 17:27 21:03 04:07 WBC RBC Hgb Hct MCV MCH RDW Plt Count Lymph % (Auto) Lymph # (Auto) Seg Neutrophils % Nucleated RBC % Seg Neutrophils # D-Dimer ABG pH 7.498 H POC ABG pCO2 27.9 L POC ABG pO2 126.9 H ABG Hemoglobin 10.1 L ABG Oxyhemoglobin 98.3 H ABG Sodium 134.3 L ABG Potassium 6.7 H ABG Glucose 261 H Carboxyhemoglobin 0.1 L Potassium Chloride Carbon Dioxide BUN Creatinine Glucose POC Glucose 223 H 230 H Calcium Phosphorus Magnesium Ferritin AST Alkaline Phosphatase Lactate Dehydrogenase Troponin T Total Protein Albumin HDL Cholesterol Arterial Blood Glucose 261 H Arterial Blood Ionized Calcium 3.6 L 08/31/20 08/31/20 08/31/20 05:01 05:45 05:45 WBC 13.1 H RBC 2.83 L Hgb 9.6 L Hct 29.8 L MCV 105 H MCH 34 H RDW 18.9 H Plt Count 88 L Lymph % (Auto) 6.9 L Lymph # (Auto) 0.9 L Seg Neutrophils % 87.8 H Nucleated RBC % Seg Neutrophils # 11.5 H D-Dimer ABG pH POC ABG pCO2 POC ABG pO2 ABG Hemoglobin ABG Oxyhemoglobin ABG Sodium ABG Potassium ABG Glucose Carboxyhemoglobin Potassium 7.1 H* Chloride 96.7 L Carbon Dioxide BUN 74 H Creatinine 7.0 H Glucose 254 H POC Glucose 256 H Calcium 7.6 L Phosphorus Magnesium Ferritin AST Alkaline Phosphatase Lactate Dehydrogenase Troponin T Total Protein Albumin HDL Cholesterol Arterial Blood Glucose Arterial Blood Ionized Calcium 08/31/20 11:38 WBC RBC Hgb Hct MCV MCH RDW Plt Count Lymph % (Auto) Lymph # (Auto) Seg Neutrophils % Nucleated RBC % Seg Neutrophils # D-Dimer ABG pH POC ABG pCO2 POC ABG pO2 ABG Hemoglobin ABG Oxyhemoglobin ABG Sodium ABG Potassium ABG Glucose Carboxyhemoglobin Potassium Chloride Carbon Dioxide BUN Creatinine Glucose POC Glucose 294 H Calcium Phosphorus Magnesium Ferritin AST Alkaline Phosphatase Lactate Dehydrogenase Troponin T Total Protein Albumin HDL Cholesterol Arterial Blood Glucose Arterial Blood Ionized Calcium Chest x-ray: image reviewed (trace RLL infiltrate) Allied health notes reviewed: nursing
--- NOTE | 2020-08-31 18:21 | Progress Note ---
Assessment and Plan Assessment and plan: This is 65-year-old female with DM, HTN, HLD, ESRD on HD MWF, multiple myeloma s/p chemotherapy and stem cell transplant and current tobacco abuse who was admitted s/p cardiac arrest with anoxic encephalopathy, hypertensive emergency, multifocal pneumonia and has a COVID-19 PUI COVID-19, ruled out S/p cardiac arrest Acute hypoxic respiratory failure Pericardial effusion Severe cardiomegaly Anoxic encephalopathy Hyperkalemia Hyperglycemia Hyperphosphatemia Hypermagnesemia Transaminitis Hypertension Hyperlipidemia ESRD on HD Multiple myeloma Current tobacco abuse -CCM, nephrology, cardiology, infectious disease, neurology consulted, appreciate recommendations -08/29 CXR shows moderate enlargement of cardiac silhouette, diffuse bilateral mixed chest x-ray and airspace disease -08/30 CT C-spine shows no CT evidence of acute bony abnormality the cervical spine, biapical airspace disease -08/30 CT head/brain shows no CT evidence of acute intracranial hemorrhage, mild generalized parenchymal atrophy, no evidence of midline shift or mass-effect, moderate size right frontal scalp hematoma -08/30 CTA chest shows no pulmonary embolism, mildly enlarged heart, moderate sized pericardial effusion, diffuse bilateral mixed interstitial and airspace disease with associated atelectasis. -08/30 CT abdomen/pelvis with contrast shows mild fluid-filled distended stomach, dense atherosclerotic calcification of the abdominal aorta, multiple loops of moderately prominent fecalized small bowel, moderate amount of retained stool throughout the colon which may represent possible sequela impaction and constip ation, multiple colonic diverticula, several calcified uterine fibroids, bibasilar mixed interstitial and airspace disease -08/30 bilateral lower extremity Doppler ultrasound shows no evidence of DVT in either lower extremity -08/30 CXR shows moderate bilateral lateral pulmonary opacities improvement -08/30 echocardiogram shows a small to moderate sized circumferential pericardial effusion, no tamponade, left ventricle systolic function normal, LVEF 55 to 60%, mild concentric LVH, trace MR, trace TR, no pulmonary hypertension -08/31 MRI B pending -08/31 EEG pending -Resume home antihypertensive regimen gradually -BP monitoring per protocol -PRN hydralazine -Empiric antibiotics per infectious disease -08/30 tracheal aspirate pending -S/P calcium gluconate, insulin, D50 for hyperkalemia in the emergency department and repeated on 08/31 -Bowel regimen -Tube feedings, SSI, Accu-Cheks every 6, hypoglycemic protocol -Trend CBC,BMP DVT/GI prophylaxis: SCDs to bilateral lower extremities while in bed, PPI, heparin subcu Disposition: ICU The high probability of a clinically significant, sudden or life threatening deterioration of the [multi] system(s) required my full and direct attention, intervention and personal management. The aggregate critical care time was [35] minutes. This time is in addition to time spent performing reported procedures but includes the following: [x] Data Review and interpretation [x] Patient assessment and monitoring of vital signs [x] Documentation [x] Medication orders and management History Interval history: This is 65-year-old female with diabetes mellitus, hypertension, hyperlipidemia, ESRD on HD MWF via left chest permacath, multiple myeloma s/p chemotherapy and stem cell transplant with right chest port, immature right upper extremity aVF and current tobacco abuse who presented to the emergency department on 08/30 s/p cardiac arrest after being found laying in driveway, unresponsive and in asystol e by EMS after being called for shortness of breath. Patient was intubated by EMS and received 3 mg epinephrine, calcium and serum bicarbonate and ROSC was eventually achieved after 10 minutes of resuscitation. Recommend emergency department revealed hyperkalemia, CXR showed moderate enlargement of cardiac silhouette, diffuse bilateral mixed interstitial and airspace disease with considerations to pulmonary edema or multifocal infectious process. Patient was admitted to the hospitalist service s/p cardiac arrest with anoxic encephalopathy, ESRD on HD, hypertensive emergency, multifocal pneumonia and a and has a COVID-19 PUI. CCM, nephrology, neurology infectious disease and cardiology were consulted. 08/30: This morning neurology was consulted, patient noted to have leukocytosis, hyperkalemia, metabolic acidosis and hyperglycemia. Patient had hyperphosphatemia, hypomagnesemia also. Patient had hemodialysis today per nephrology. COVID-19 PCR negative. Patient was in ED holding and admitted to the ICU later during the day. Patient is sedated on fentanyl and propofol. At the time my examination she was assist-control, rate of 28, tidal and 450, 60 PEEP and FiO2 of 60%. 08/31: Patient received hemodialysis however she is hyperkalemia again which was treated with dextrose, insulin and Kionex. Patient received hemodialysis again today per nephrology. Patient continues with with meropenem until blood cultures per infectious disease. MRI brain and EEG pending, lactulose discontinued (which was started due to large stool burden). We will follow up on cultures and BMP. Patient also noted to be hyperglycemic and was started on long acting insulin. Family updated at bedside by nurse ela and Dr. Garces. Hospitalist Physical - Constitutional Vitals: Temp Pulse Resp BP Pulse Ox 98.4 F 119 H 22 181/79 97 08/31/20 14:30 08/31/20 17:20 08/31/20 17:20 08/31/20 17:20 08/31/20 17:20 General appearance: Present: other (Unresponsive, on the vent) HEART Score - HEART Score Troponin: Troponin T 0.085 ng/mL (0.00-0.029) H 08/30/20 00:15 Results - Labs CBC & Chem 7: 08/31/20 05:45 08/31/20 05:45 Labs: Laboratory Last Values WBC 13.1 K/mm3 (4.5-11.0) H 08/31/20 05:45 RBC 2.83 M/mm3 (3.65-5.03) L 08/31/20 05:45 Hgb 9.6 gm/dl (10.1-14.3) L 08/31/20 05:45 Hct 29.8 % (30.3-42.9) L 08/31/20 05:45 MCV 105 fl (79-97) H 08/31/20 05:45 MCH 34 pg (28-32) H 08/31/20 05:45 MCHC 32 % (30-34) 08/31/20 05:45 RDW 18.9 % (13.2-15.2) H 08/31/20 05:45 Plt Count 88 K/mm3 (140-440) L 08/31/20 05:45 Lymph % (Auto) 6.9 % (13.4-35.0) L 08/31/20 05:45 [place] % (Auto) 4.5 % (0.0-7.3) 08/31/20 05:45 Eos % (Auto) 0.0 % (0.0-4.3) 08/31/20 05:45 Baso % (Auto) 0.8 % (0.0-1.8) 08/31/20 05:45 Lymph # (Auto) 0.9 K/mm3 (1.2-5.4) L 08/31/20 05:45 [place] # (Auto) 0.6 K/mm3 (0.0-0.8) 08/31/20 05:45 Eos # (Auto) 0.0 K/mm3 (0.0-0.4) 08/31/20 05:45 Baso # (Auto) 0.1 K/mm3 (0.0-0.1) 08/31/20 05:45 Add Manual Diff Complete 08/30/20 00:15 Total Counted 100 08/30/20 00:15 Seg Neutrophils % 87.8 % (40.0-70.0) H 08/31/20 05:45 Seg Neuts % (Manual) 57.0 % (40.0-70.0) 08/30/20 00:15 Band Neutrophils % 1.0 % 08/30/20 00:15 Lymphocytes % (Manual) 34.0 % (13.4-35.0) 08/30/20 00:15 Monocytes % (Manual) 5.0 % (0.0-7.3) 08/30/20 00:15 Eosinophils % (Manual) 3.0 % (0.0-4.3) 08/30/20 00:15 Nucleated RBC % 1.0 % (0.0-0.9) H 08/30/20 00:15 Seg Neutrophils # 11.5 K/mm3 (1.8-7.7) H 08/31/20 05:45 Seg Neutrophils # Man 5.6 K/mm3 (1.8-7.7) 08/30/20 00:15 Band Neutrophils # 0.1 K/mm3 08/30/20 00:15 Lymphocytes # (Manual) 3.3 K/mm3 (1.2-5.4) 08/30/20 00:15 Abs React Lymphs (Man) 0.0 K/mm3 08/30/20 00:15 Monocytes # (Manual) 0.5 K/mm3 (0.0-0.8) 08/30/20 00:15 Eosinophils # (Manual) 0.3 K/mm3 (0.0-0.4) 08/30/20 00:15 Basophils # (Manual) 0.0 K/mm3 (0.0-0.1) 08/30/20 00:15 Metamyelocytes # 0.0 K/mm3 08/30/20 00:15 Myelocytes # 0.0 K/mm3 08/30/20 00:15 Promyelocytes # 0.0 K/mm3 08/30/20 00:15 Blast Cells # 0.0 K/mm3 08/30/20 00:15 WBC Morphology Not Reportable 08/30/20 00:15 Hypersegmented Neuts Not Reportable 08/30/20 00:15 Hyposegmented Neuts Not Reportable 08/30/20 00:15 Hypogranular Neuts Not Reportable 08/30/20 00:15 Smudge Cells Not Reportable 08/30/20 00:15 Toxic Granulation Not Reportable 08/30/20 00:15 Toxic Vacuolation Not Reportable 08/30/20 00:15 Dohle Bodies Not Reportable 08/30/20 00:15 Pelger-Huet Anomaly Not Reportable 08/30/20 00:15 Lolita Rods Not Reportable 08/30/20 00:15 Platelet Estimate Consistent w auto 08/30/20 00:15 Clumped Platelets Not Reportable 08/30/20 00:15 Plt Clumps, EDTA Not Reportable 08/30/20 00:15 Large Platelets Not Reportable 08/30/20 00:15 Giant Platelets Not Reportable 08/30/20 00:15 Platelet Satelliting Not Reportable 08/30/20 00:15 Plt Morphology Comment Not Reportable 08/30/20 00:15 RBC Morphology Not Reportable 08/30/20 00:15 Dimorphic RBCs Not Reportable 08/30/20 00:15 Polychromasia Not Reportable 08/30/20 00:15 Hypochromasia Not Reportable 08/30/20 00:15 Poikilocytosis Not Reportable 08/30/20 00:15 Anisocytosis 1+ 08/30/20 00:15 Microcytosis Not Reportable 08/30/20 00:15 Macrocytosis Not Reportable 08/30/20 00:15 Spherocytes Not Reportable 08/30/20 00:15 Pappenheimer Bodies Not Reportable 08/30/20 00:15 Sickle Cells Not Reportable 08/30/20 00:15 Target Cells Not Reportable 08/30/20 00:15 Tear Drop Cells Not Reportable 08/30/20 00:15 Ovalocytes Not Reportable 08/30/20 00:15 Helmet Cells Not Reportable 08/30/20 00:15 [place] Bodies Not Reportable 08/30/20 00:15 [place] Rings Not Reportable 08/30/20 00:15 Jigar Cells Not Reportable 08/30/20 00:15 Bite Cells Not Reportable 08/30/20 00:15 Crenated Cell Not Reportable 08/30/20 00:15 Elliptocytes Not Reportable 08/30/20 00:15 Acanthocytes (Spur) Not Reportable 08/30/20 00:15 Rouleaux Not Reportable 08/30/20 00:15 Hemoglobin C Crystals Not Reportable 08/30/20 00:15 Schistocytes Not Reportable 08/30/20 00:15 Malaria parasites Not Reportable 08/30/20 00:15 Maurice Bodies Not Reportable 08/30/20 00:15 Hem Pathologist Commnt No 08/30/20 00:15 PT 12.8 Sec. (12.2-14.9) 08/31/20 05:45 INR 0.90 (0.87-1.13) 08/31/20 05:45 D-Dimer > 61143 ng/mlDDU (0-234) H 08/30/20 03:10 ABG pH 7.498 (7.320-7.450) H 08/31/20 04:07 POC ABG pCO2 27.9 mmHg (32.0-48.0) L 08/31/20 04:07 POC ABG pO2 126.9 mmHg (83-108) H 08/31/20 04:07 POC ABG HCO3 21.2 08/31/20 04:07 ABG O2 Saturation 98.7 (0-100) 08/31/20 04:07 POC ABG Base Excess -1.3 08/31/20 04:07 ABG Hemoglobin 10.1 (12.0-17.5) L 08/31/20 04:07 ABG Oxyhemoglobin 98.3 (94-98) H 08/31/20 04:07 ABG Methemoglobin 0.3 (0.0-1.5) 08/31/20 04:07 ABG Sodium 134.3 mmol/L (136.0-145.0) L 08/31/20 04:07 ABG Potassium 6.7 mmol/L (3.40-4.50) H 08/31/20 04:07 ABG Chloride 99.0 mmol/L (98-107) 08/31/20 04:07 ABG Glucose 261 mg/dL (65-95) H 08/31/20 04:07 Carboxyhemoglobin 0.1 (0.5-1.5) L 08/31/20 04:07 FiO2 % 40.0 08/31/20 04:07 Sodium 137 mmol/L (137-145) 08/31/20 05:45 Potassium 7.1 mmol/L (3.6-5.0) H* 08/31/20 05:45 Chloride 96.7 mmol/L (98-107) L 08/31/20 05:45 Carbon Dioxide 23 mmol/L (22-30) 08/31/20 05:45 Anion Gap 24 mmol/L 08/31/20 05:45 BUN 74 mg/dL (7-17) H 08/31/20 05:45 Creatinine 7.0 mg/dL (0.6-1.2) H 08/31/20 05:45 Estimated GFR 7 ml/min 08/31/20 05:45 BUN/Creatinine Ratio 11 % 08/31/20 05:45 Glucose 254 mg/dL (65-100) H 08/31/20 05:45 POC Glucose 294 mg/dL (70-105) H 08/31/20 11:38 Calcium 7.6 mg/dL (8.4-10.2) L 08/31/20 05:45 Phosphorus 11.50 mg/dL (2.5-4.5) H 08/30/20 00:15 Magnesium 3.80 mg/dL (1.7-2.3) H 08/30/20 00:15 Ferritin 830.0 ng/mL (10.0-200.0) H 08/30/20 03:10 Total Bilirubin 0.40 mg/dL (0.1-1.2) 08/30/20 15:03 AST 68 units/L (5-40) H 08/30/20 15:03 ALT 41 units/L (7-56) 08/30/20 15:03 Alkaline Phosphatase 364 units/L (35-129) H 08/30/20 15:03 Lactate Dehydrogenase 400 units/L (91-180) H 08/30/20 03:10 Troponin T 0.085 ng/mL (0.00-0.029) H 08/30/20 00:15 C-Reactive Protein 0.20 mg/dL (0.00-1.30) 08/30/20 03:10 Total Protein 6.4 g/dL (6.3-8.2) 08/30/20 15:03 Albumin 3.7 g/dL (3.9-5) L 08/30/20 15:03 Albumin/Globulin Ratio 1.4 % 08/30/20 15:03 Triglycerides 61 mg/dL (2-149) 08/30/20 00:15 Cholesterol 150 mg/dL (50-199) 08/30/20 00:15 LDL Cholesterol Direct 71 mg/dL (50-130) 08/30/20 00:15 HDL Cholesterol 66 mg/dL (40-59) H 08/30/20 00:15 Cholesterol/HDL Ratio 2.27 % 08/30/20 00:15 Procalcitonin 4.16 ng/mL (<0.15) 08/30/20 03:10 Arterial Blood Glucose 261 mg/dL (65-95) H 08/31/20 04:07 Arterial Blood Ionized Calcium 3.6 mg/dL (4.6-5.3) L 08/31/20 04:07 Coronavirus (PCR) Negative (Negative) 08/30/20 Unknown Hepatitis A IgM Ab Non-reactive (NonReactive) 08/30/20 07:35 Hep Bs Antigen Non-reactive (Negative) 08/30/20 07:35 Hep B Core IgM Ab Non-reactive (NonReactive) 08/30/20 07:35 Hepatitis C Antibody Non-reactive (NonReactive) 08/30/20 07:35 Microbiology: Microbiology 08/30/20 Unknown Tracheal Aspirate Sputum Culture - Preliminary 08/30/20 18:15 Peripheral/Venous Blood Culture - Preliminary Culture in Progress 08/30/20 18:15 Peripheral/Venous Blood Culture - Preliminary Culture in Progress Johns/IV: Voiding Method Incontinent Active Medications - Current Medications Current Medications: Generic Name Dose Route Start Last Admin Trade Name Freq PRN Reason Stop Dose Admin Lipase/Protease/Amylase 1 each 08/30/20 14:27 Lipase 10,500/Protease 25,000/Amylase 43,750 (Units) Dr Cap FEEDTUBE PRN PRN For Clogged Feeding Tube Dextrose 50 ml 08/30/20 19:48 Dextrose 50% In Water (25gm) 50 Ml Syringe IV Q30MIN PRN Hypoglycemia Protocol Famotidine 20 mg 08/30/20 10:00 08/31/20 09:28 Famotidine 20 Mg/2 Ml Inj IV 20 mg DAILY ANIYAH Administration Fentanyl 50 mcg 08/30/20 14:05 Fentanyl 100 Mcg/2 Ml Inj IV Q10MIN PRN ANALGESIA Heparin Sodium (Porcine) 5,000 unit 08/30/20 06:00 08/31/20 14:26 Heparin 5,000 Unit/1 Ml Vial SUB-Q 5,000 unit Q8HR ANIYAH Administration Hydralazine HCl 10 mg 08/31/20 18:14 Hydralazine 20 Mg/1 Ml Inj IV Q4HR PRN Hypertension Hydrophilic Ointment 1 applic 08/30/20 14:05 Lip Therapy Vaseline TP Q2HR PRN Dry Lips Sodium Chloride 100 mls @ 999 mls/hr 08/30/20 09:00 Nacl 0.9% IV ARMIDA PRN Hypotension Propofol 1,000 mg in 100 mls @ 2.381 mls/hr 08/30/20 13:00 08/31/20 16:39 Diprivan 10 Mg/Ml IV 0 mcg/kg/min TITR ANIYAH 0 mls/hr Titration Protocol 5 MCG/KG/MIN Meropenem 500 mg in 50 mls @ 50 mls/hr 08/30/20 14:00 08/31/20 14:29 Merrem/Ns 500 Mg/50 Ml IV 50 mls/hr Q24H ANIYAH Administration Fentanyl Citrate 2,000 mcg in 100 mls @ 3.969 mls/hr 08/30/20 15:00 08/31/20 18:13 Fentanyl Drip Premix IV 2 mcg/kg/hr TITR ANIYAH 7.938 mls/hr Administration Protocol 1 MCG/KG/HR Insulin Glargine 10 units 08/31/20 22:00 Insulin Glargine 100 Units/Ml SUB-Q QHS ANIYAH Insulin Human Regular 0 units 08/31/20 00:01 08/31/20 14:26 Insulin Regular, Human 100 Units/1 Ml SUB-Q 6 units Q6H ANIYAH Administration Protocol Magnesium Hydroxide 30 ml 08/30/20 04:41 Magnesium Hydroxide (Mom) Oral Liqd Udc PO Q4H PRN Constipation Multi-Ingred Cream/Lotion/Oil/Oint 1 applic 08/30/20 14:05 08/31/20 01:17 Mineral Oil/Petrolatum, White Ophth Oint 3.5 Gm OU 1 applic Q4HR PRN Administration Dry Eye(s) Ondansetron HCl 4 mg 08/30/20 04:41 Ondansetron 4 Mg/2 Ml Inj IV Q8H PRN Nausea And Vomiting Senna/Docusate Sodium 1 tab 08/30/20 22:00 08/31/20 09:28 Sennosides/Docusate Sodium 8.6/50 Mg Tab FEEDTUBE 1 tab BID ANIYAH Administration Simple Syrup 15 ml 08/30/20 14:27 Simple Syrup 15 Ml FEEDTUBE PRN PRN Hypoglycemia Simple Syrup 30 ml 08/30/20 14:27 Simple Syrup 15 Ml FEEDTUBE PRN PRN Hypoglycemia Sodium Bicarbonate 325 mg 08/30/20 14:27 Sodium Bicarbonate 325 Mg Tab FEEDTUBE PRN PRN For Clogged Feeding Tube Sodium Chloride 10 ml 08/30/20 10:00 08/31/20 14:25 Sodium Chloride 0.9% 10 Ml Flush Syringe IV 10 ml BID ANIYAH Administration Sodium Chloride 10 ml 08/30/20 04:41 Sodium Chloride 0.9% 10 Ml Flush Syringe IV PRN PRN LINE FLUSH Nutrition/Malnutrition Assess - Dietary Evaluation Nutrition/Malnutrition Findings: Nutrition Notes Start: 08/30/20 07:40 Freq: Status: Active Protocol: Document 08/30/20 07:40 (Rec: 08/30/20 07:45 [id number]) Nutrition Notes Need for Assessment generated from: MD Order,Education Initial or Follow up Assessment Current Diagnosis CKD (stage V CKD),Diabetes, Hypertension Other Pertinent Diagnosis pneu, cardiac arrest, on HD, COVID PUI Current Diet NPO Labs/Tests K 7 Phos 11.5 Mg 3.8 BG 174 Pertinent Medications Reviewed Height 5 ft 3 in Weight 79.379 kg [place] Body Weight (kg) 52.27 BMI 30.9 Weight Status Obese Subjective/Other Information MD order for diet education and TF. Pt on hold in ED. Pt on the vent and unable to communicate. Burn Absent Trauma Absent Current % PO Negligible #1 Nutrition Diagnosis Inadequate oral intake Etiology ARF As Evidenced by Signs and Symptoms pt on vent and unable to consume PO Is patient on ventilator? Yes Is Patient Ambulatory and/or Out of Bed No REE-([facility]-confined to bed) [phone] Calculation Used for Recommendations [facility] Additional Notes Protein: (>2g/kg IBW) >104 Fluid: 1 ml/kcal or per MD Nutrition Intervention Change Diet Order: Start TF Nutrition Support: Nepro 1.8 at 35 ml/hr Flush 150 ml q4h or per MD Kcal 1,512 Protein (gm) 68 Carbohydrates (gm) 135 Fat (gm) 81 Fluid (mL) 611 Fiber (gm) 0 Goal #1 Meet at least 75% of protein and energy needs via TF Anticipated Discharge Needs: Unable to determine at this time Follow-Up By: 09/01/20 Additional Comments FU for TF start and tolerance
[2020-08-31] MEDS: hydrALAZINE 20 MG/1 ML INJ IV PRN ×2 (18:22→21:48)
[2020-08-31] MEDS ORDERED: NON-FORMULARY EACH (Amlodipine Besylate 10 MG) PO SCH (18:30)
[2020-08-31] MEDS: amLODIPine 10 MG TAB PO SCH (19:32)
[2020-08-31] MEDS: INSULIN GLARGINE 100 UNITS/ML SUB-Q SCH (21:48)
[2020-09-01] MEDS: INSULIN REGULAR, HUMAN 100 UNITS/1 ML SUB-Q SCH ×6 (00:38→21:53)
[2020-09-01] MEDS: ACETAMINOPHEN 325 MG/10.15 ML ORAL LIQD UNIT DOSE FEEDTUBE PRN ×3 (01:22→16:30)
--- NOTE | 2020-09-01 05:26 | XRay Report ---
CHEST 1 VIEW, 09/01/2020 1:31 AM CLINICAL INFORMATION/INDICATION: Respiratory failure COMPARISON: Chest radiograph, 08/31/2020 FINDINGS: SUPPORT DEVICES: Support tubes and lines project in stable position. HEART: There is stable moderate enlargement of the cardiac silhouette. LUNGS/PLEURA: Perihilar pulmonary opacities have not significantly changed. No pleural effusion or pn eumothorax is identified. ADDITIONAL FINDINGS: No additional acute findings. IMPRESSION: 1. Stable enlargement of the cardiac silhouette. 2. Stable perihilar opacities suggesting mild pulmonary edema. Signer Name: Loree Loera MD Signed: 09/01/2020 5:21 AM Workstation Name: [id number]
[2020-09-01] MEDS: HEPARIN 5,000 UNIT/1 ML VIAL SUB-Q SCH ×3 (06:25→21:56)
[2020-09-01] MEDS: fentaNYL DRIP Premix 2,000 MCG/100 ML BAG IV SCH (08:50)
[2020-09-01] MEDS: SENNOSIDES/DOCUSATE SODIUM 8.6/50 MG TAB FEEDTUBE SCH ×3 (09:05→21:33)
[2020-09-01] MEDS: amLODIPine 10 MG TAB PO SCH (09:05)
[2020-09-01] MEDS: FAMOTIDINE 20 MG/2 ML INJ IV SCH (09:06)
[2020-09-01] MEDS ORDERED: METOPROLOL TARTRATE 25 MG TAB PO SCH (10:00)
[2020-09-01] MEDS ORDERED: METOPROLOL TARTRATE 75 MG PO SCH (10:00)
[2020-09-01] MEDS: INSULIN GLARGINE 100 UNITS/ML SUB-Q SCH ×2 (10:36→21:56)
--- NOTE | 2020-09-01 10:45 | Progress Note ---
Assessment and Plan Assessment and Plan # Cardiac arrest -Successfully resuscitated and intubated. - Possibly related to underlying multifocal infectious pulmonary process versus pulmonary edema and or hyperkalemia. -Currently OFF Fantanyl -Intubated # Anoxic encephalopathy -Post cardiac arrest anoxia -Ct brain is noted -Brain MRI is pending -EEG is pending -Off Sdation ++ Poor prognosis # End-stage renal disease on hemodialysis -Patient on dialysis on Mondays, Wednesdays and Fridays. -Last dialysis was on Sunday. -dialysed yesterday -BUn/Cr#74/7 # Hypertensive urgency -Blood pressure currently stable. -We will monitor vital signs closely. # Multifocal pneumonia -Patient commenced on empiric IV antibiotics. -We will also request COVID-19 testing. # DVT prophylaxis -Patient placed on subcutaneous heparin. # Full code status -Patient is full code. PLAN 1- MRI brain 2-EEG 3-Over all prognosis is poor 4- Off sedation 5- Dialysis ,Treat underlying infection Subjective Date of service: 09/01/20 Principal diagnosis: Hyperkalemia, cardiac arrest Interval history: Status is unchanged on diallysis this am Off sedation MRI brain and EEG pending Objective - Vital Sign Vital Signs - 12hr 08/31/20 08/31/20 08/31/20 22:50 23:00 23:10 Temperature Pulse Rate 132 H 131 H 132 H Pulse Rate [ From Monitor] Respiratory 26 H 27 H 26 H Rate Blood Pressure 187/69 192/71 187/69 O2 Sat by Pulse 97 97 97 Oximetry O2 Sat by Pulse Oximetry [ Bilateral Throughout] 08/31/20 08/31/20 08/31/20 23:20 23:30 23:40 Temperature Pulse Rate 131 H 129 H 129 H Pulse Rate [ From Monitor] Respiratory 26 H 26 H 25 H Rate Blood Pressure 187/69 187/69 193/72 O2 Sat by Pulse 97 97 97 Oximetry O2 Sat by Pulse Oximetry [ Bilateral Throughout] 08/31/20 09/01/20 09/01/20 23:50 00:00 00:10 Temperature 100.9 F H Pulse Rate 129 H 138 H 135 H Pulse Rate [ 138 H From Monitor] Respiratory 25 H 28 H 25 H Rate Blood Pressure 193/72 193/72 188/65 O2 Sat by Pulse 98 98 97 Oximetry O2 Sat by Pulse Oximetry [ Bilateral Throughout] 06/09/01/20 09/01/20 00:20 00:30 00:40 Temperature Pulse Rate 134 H 137 H 132 H Pulse Rate [ From Monitor] Respiratory 28 H 30 H 28 H Rate Blood Pressure 188/65 188/70 188/70 O2 Sat by Pulse 97 98 98 Oximetry O2 Sat by Pulse Oximetry [ Bilateral Throughout] 09/01/20 09/01/20 09/01/20 00:50 01:00 01:10 Temperature Pulse Rate 131 H 131 H 130 H Pulse Rate [ From Monitor] Respiratory 27 H 26 H 26 H Rate Blood Pressure 188/70 188/70 192/71 O2 Sat by Pulse 98 98 98 Oximetry O2 Sat by Pulse Oximetry [ Bilateral Throughout] 09/01/20 09/01/20 09/01/20 01:20 01:30 01:40 Temperature Pulse Rate 133 H 133 H 133 H Pulse Rate [ From Monitor] Respiratory 26 H 27 H 28 H Rate Blood Pressure 192/71 192/71 192/70 O2 Sat by Pulse 98 98 98 Oximetry O2 Sat by Pulse Oximetry [ Bilateral Throughout] 09/01/20 09/01/20 09/01/20 01:50 02:00 02:10 Temperature Pulse Rate 132 H 131 H 130 H Pulse Rate [ From Monitor] Respiratory 26 H 26 H 26 H Rate Blood Pressure 192/70 192/70 186/70 O2 Sat by Pulse 98 98 98 Oximetry O2 Sat by Pulse Oximetry [ Bilateral Throughout] 09/01/20 09/01/20 09/01/20 02:20 02:30 02:40 Temperature Pulse Rate 128 H 128 H 127 H Pulse Rate [ From Monitor] Respiratory 26 H 24 24 Rate Blood Pressure 186/70 191/70 191/70 O2 Sat by Pulse 98 98 98 Oximetry O2 Sat by Pulse Oximetry [ Bilateral Throughout] 09/01/20 09/01/20 09/01/20 02:50 03:00 03:10 Temperature Pulse Rate 129 H 127 H 126 H Pulse Rate [ From Monitor] Respiratory 21 24 24 Rate Blood Pressure 191/70 190/67 191/70 O2 Sat by Pulse 98 98 98 Oximetry O2 Sat by Pulse Oximetry [ Bilateral Throughout] 09/01/20 09/01/20 09/01/20 03:20 03:24 03:30 Temperature 101.1 F H Pulse Rate 123 H 124 H Pulse Rate [ From Monitor] Respiratory 26 H 16 Rate Blood Pressure 191/70 191/70 O2 Sat by Pulse 98 98 Oximetry O2 Sat by Pulse Oximetry [ Bilateral Throughout] 09/01/20 09/01/20 09/01/20 03:40 03:50 04:00 Temperature Pulse Rate 126 H 124 H 119 H Pulse Rate [ 114 H From Monitor] Respiratory 25 H 22 24 Rate Blood Pressure 175/65 175/65 175/65 O2 Sat by Pulse 98 96 98 Oximetry O2 Sat by Pulse Oximetry [ Bilateral Throughout] 09/01/20 09/01/20 09/01/20 04:10 04:20 04:25 Temperature Pulse Rate 117 H 117 H 116 H Pulse Rate [ From Monitor] Respiratory 24 25 H Rate Blood Pressure 167/71 167/71 167/71 O2 Sat by Pulse 99 99 99 Oximetry O2 Sat by Pulse Oximetry [ Bilateral Throughout] 09/01/20 09/01/20 09/01/20 04:30 04:40 04:50 Temperature Pulse Rate 115 H 120 H 119 H Pulse Rate [ From Monitor] Respiratory 22 20 22 Rate Blood Pressure 185/68 185/68 185/68 O2 Sat by Pulse 99 99 99 Oximetry O2 Sat by Pulse Oximetry [ Bilateral Throughout] 09/01/20 09/01/20 09/01/20 05:00 05:10 05:20 Temperature Pulse Rate 117 H 114 H 114 H Pulse Rate [ From Monitor] Respiratory 26 H 23 19 Rate Blood Pressure 185/62 185/62 185/62 O2 Sat by Pulse 99 99 99 Oximetry O2 Sat by Pulse Oximetry [ Bilateral Throughout] 09/01/20 09/01/20 09/01/20 05:30 05:40 05:50 Temperature Pulse Rate 114 H 114 H 114 H Pulse Rate [ From Monitor] Respiratory 22 25 H 21 Rate Blood Pressure 193/73 193/73 193/73 O2 Sat by Pulse 99 99 99 Oximetry O2 Sat by Pulse Oximetry [ Bilateral Throughout] 09/01/20 09/01/20 09/01/20 06:00 06:10 06:20 Temperature Pulse Rate 114 H 115 H 113 H Pulse Rate [ From Monitor] Respiratory 22 12 19 Rate Blood Pressure 193/73 187/71 O2 Sat by Pulse 100 100 100 Oximetry O2 Sat by Pulse Oximetry [ Bilateral Throughout] 09/01/20 09/01/20 09/01/20 06:30 06:40 06:50 Temperature Pulse Rate 111 H 114 H 106 H Pulse Rate [ From Monitor] Respiratory 20 22 14 Rate Blood Pressure 194/70 194/70 194/70 O2 Sat by Pulse 100 100 100 Oximetry O2 Sat by Pulse Oximetry [ Bilateral Throughout] 09/01/20 09/01/20 09/01/20 07:00 07:10 07:20 Temperature Pulse Rate 112 H 110 H 111 H Pulse Rate [ From Monitor] Respiratory 23 25 H 22 Rate Blood Pressure 185/68 185/68 185/68 O2 Sat by Pulse 99 99 100 Oximetry O2 Sat by Pulse Oximetry [ Bilateral Throughout] 09/01/20 09/01/20 09/01/20 07:30 07:40 07:50 Temperature Pulse Rate 109 H 113 H 109 H Pulse Rate [ From Monitor] Respiratory 22 21 20 Rate Blood Pressure 178/65 178/65 178/65 O2 Sat by Pulse 100 100 100 Oximetry O2 Sat by Pulse Oximetry [ Bilateral Throughout] 09/01/20 09/01/20 09/01/20 07:51 07:52 08:00 Temperature Pulse Rate 97 H 109 H Pulse Rate [ 112 H From Monitor] Respiratory 21 20 Rate Blood Pressure 172/68 O2 Sat by Pulse 100 100 Oximetry O2 Sat by Pulse Oximetry [ Bilateral Throughout] 09/01/20 09/01/20 09/01/20 08:10 08:20 08:30 Temperature Pulse Rate 108 H 108 H 110 H Pulse Rate [ From Monitor] Respiratory 20 21 20 Rate Blood Pressure 172/68 172/68 186/68 O2 Sat by Pulse 100 100 100 Oximetry O2 Sat by Pulse Oximetry [ Bilateral Throughout] 09/01/20 09/01/20 09/01/20 08:40 08:50 09:00 Temperature Pulse Rate 111 H 108 H 108 H Pulse Rate [ From Monitor] Respiratory 26 H 22 21 Rate Blood Pressure 186/68 186/68 171/64 O2 Sat by Pulse 100 99 99 Oximetry O2 Sat by Pulse Oximetry [ Bilateral Throughout] 09/01/20 09/01/20 09/01/20 09:05 09:06 09:10 Temperature 98.2 F Pulse Rate 117 H 113 H 108 H Pulse Rate [ From Monitor] Respiratory 19 23 Rate Blood Pressure 171/64 177/69 179/66 O2 Sat by Pulse 100 Oximetry O2 Sat by Pulse 100 Oximetry [ Bilateral Throughout] 09/01/20 09/01/20 09/01/20 09:20 09:30 09:40 Temperature Pulse Rate 102 H 100 H 98 H Pulse Rate [ From Monitor] Respiratory 20 23 19 Rate Blood Pressure 175/72 172/66 172/66 O2 Sat by Pulse 100 100 100 Oximetry O2 Sat by Pulse Oximetry [ Bilateral Throughout] 09/01/20 09/01/20 09/01/20 09:45 09:50 10:00 Temperature Pulse Rate 96 H 100 H 104 H Pulse Rate [ From Monitor] Respiratory 20 24 Rate Blood Pressure 166/63 166/63 157/67 O2 Sat by Pulse 100 100 Oximetry O2 Sat by Pulse Oximetry [ Bilateral Throughout] 09/01/20 09/01/20 09/01/20 10:10 10:15 10:20 Temperature Pulse Rate 104 H 105 H 107 H Pulse Rate [ From Monitor] Respiratory 16 13 Rate Blood Pressure 157/67 161/68 161/68 O2 Sat by Pulse 100 100 Oximetry O2 Sat by Pulse Oximetry [ Bilateral Throughout] 09/01/20 10:30 Temperature Pulse Rate 108 H Pulse Rate [ From Monitor] Respiratory Rate Blood Pressure 152/67 O2 Sat by Pulse Oximetry O2 Sat by Pulse Oximetry [ Bilateral Throughout] - General Apperance Constitutional: comfortable - EENT EENT: PERRL, mucous membranes moist - Respiratory Respiratory: chest non-tender, lungs clear, rhonchi - Cardiovascular Cardiovascular: regular rate, normal S1, normal S2 Extremities: no peripheral edema bilat, no clubbing, cyanosis - Gastrointestinal Gastrointestinal: normoactive bowel sounds - Integumentary Integumentary: normal - Neurologic Cranial nerve examination: anosmic, other (pupils 2 mm ,sluggish, no emo,no gag no corneal) Detailed motor examination: other (no movment to stimuli) - Laboratory Findings CBC and BMP: 08/31/20 05:45 08/31/20 05:45 Abnormal Lab Findings: Abnormal Labs 08/30/20 08/30/20 08/30/20 00:14 00:15 00:15 WBC RBC 2.83 L Hgb 9.8 L Hct MCV 112 H MCH 35 H RDW 19.9 H Plt Count 95 L Lymph % (Auto) Lymph # (Auto) Seg Neutrophils % Nucleated RBC % 1.0 H Seg Neutrophils # D-Dimer ABG pH 7.199 L POC ABG pCO2 49.3 H POC ABG pO2 ABG Hemoglobin 11.9 L ABG Oxyhemoglobin 93.0 L ABG Sodium ABG Potassium 6.9 H ABG Chloride ABG Glucose 158 H Carboxyhemoglobin 2.8 H Potassium 7.0 H* Chloride Carbon Dioxide 18 L BUN 68 H Creatinine 8.3 H Glucose 174 H POC Glucose Calcium Phosphorus Magnesium Ferritin AST 68 H Alkaline Phosphatase 414 H Lactate Dehydrogenase Troponin T 0.085 H Total Protein 5.6 L Albumin 3.4 L HDL Cholesterol 66 H Arterial Blood Glucose 158 H Arterial Blood Ionized Calcium 08/30/20 08/30/20 08/30/20 00:15 00:15 03:10 WBC RBC Hgb Hct MCV MCH RDW Plt Count Lymph % (Auto) Lymph # (Auto) Seg Neutrophils % Nucleated RBC % Seg Neutrophils # D-Dimer 6083.16 H > 98877 H ABG pH POC ABG pCO2 POC ABG pO2 ABG Hemoglobin ABG Oxyhemoglobin ABG Sodium ABG Potassium ABG Chloride ABG Glucose Carboxyhemoglobin Potassium Chloride Carbon Dioxide BUN Creatinine Glucose POC Glucose Calcium Phosphorus 11.50 H Magnesium 3.80 H Ferritin AST Alkaline Phosphatase Lactate Dehydrogenase Troponin T Total Protein Albumin HDL Cholesterol Arterial Blood Glucose Arterial Blood Ionized Calcium 08/30/20 08/30/20 08/30/20 03:10 03:10 04:49 WBC RBC Hgb Hct MCV MCH RDW Plt Count Lymph % (Auto) Lymph # (Auto) Seg Neutrophils % Nucleated RBC % Seg Neutrophils # D-Dimer ABG pH POC ABG pCO2 POC ABG pO2 ABG Hemoglobin 10.8 L ABG Oxyhemoglobin ABG Sodium ABG Potassium 6.7 H ABG Chloride ABG Glucose 137 H Carboxyhemoglobin Potassium Chloride Carbon Dioxide BUN Creatinine Glucose 126 H POC Glucose Calcium Phosphorus Magnesium Ferritin 830.0 H AST Alkaline Phosphatase Lactate Dehydrogenase 400 H Troponin T Total Protein Albumin HDL Cholesterol Arterial Blood Glucose 137 H Arterial Blood Ionized Calcium 4.5 L 08/30/20 08/30/20 08/30/20 07:13 15:03 15:03 WBC 17.2 H RBC 3.23 L Hgb Hct MCV 108 H MCH 34 H RDW 19.4 H Plt Count 90 L Lymph % (Auto) Lymph # (Auto) Seg Neutrophils % Nucleated RBC % Seg Neutrophils # D-Dimer ABG pH POC ABG pCO2 POC ABG pO2 ABG Hemoglobin ABG Oxyhemoglobin ABG Sodium ABG Potassium ABG Chloride ABG Glucose Carboxyhemoglobin Potassium 8.2 H* 6.5 H* D Chloride 96.7 L Carbon Dioxide 21 L BUN 52 H Creatinine 5.7 H Glucose 220 H POC Glucose Calcium Phosphorus Magnesium Ferritin AST 68 H Alkaline Phosphatase 364 H Lactate Dehydrogenase Troponin T Total Protein Albumin 3.7 L HDL Cholesterol Arterial Blood Glucose Arterial Blood Ionized Calcium 08/30/20 08/30/20 08/31/20 17:27 21:03 04:07 WBC RBC Hgb Hct MCV MCH RDW Plt Count Lymph % (Auto) Lymph # (Auto) Seg Neutrophils % Nucleated RBC % Seg Neutrophils # D-Dimer ABG pH 7.498 H POC ABG pCO2 27.9 L POC ABG pO2 126.9 H ABG Hemoglobin 10.1 L ABG Oxyhemoglobin 98.3 H ABG Sodium 134.3 L ABG Potassium 6.7 H ABG Chloride ABG Glucose 261 H Carboxyhemoglobin 0.1 L Potassium Chloride Carbon Dioxide BUN Creatinine Glucose POC Glucose 223 H 230 H Calcium Phosphorus Magnesium Ferritin AST Alkaline Phosphatase Lactate Dehydrogenase Troponin T Total Protein Albumin HDL Cholesterol Arterial Blood Glucose 261 H Arterial Blood Ionized Calcium 3.6 L 08/31/20 08/31/20 08/31/20 05:01 05:45 05:45 WBC 13.1 H RBC 2.83 L Hgb 9.6 L Hct 29.8 L MCV 105 H MCH 34 H RDW 18.9 H Plt Count 88 L Lymph % (Auto) 6.9 L Lymph # (Auto) 0.9 L Seg Neutrophils % 87.8 H Nucleated RBC % Seg Neutrophils # 11.5 H D-Dimer ABG pH POC ABG pCO2 POC ABG pO2 ABG Hemoglobin ABG Oxyhemoglobin ABG Sodium ABG Potassium ABG Chloride ABG Glucose Carboxyhemoglobin Potassium 7.1 H* Chloride 96.7 L Carbon Dioxide BUN 74 H Creatinine 7.0 H Glucose 254 H POC Glucose 256 H Calcium 7.6 L Phosphorus Magnesium Ferritin AST Alkaline Phosphatase Lactate Dehydrogenase Troponin T Total Protein Albumin HDL Cholesterol Arterial Blood Glucose Arterial Blood Ionized Calcium 08/31/20 08/31/20 09/01/20 11:38 23:31 03:13 WBC RBC Hgb Hct MCV MCH RDW Plt Count Lymph % (Auto) Lymph # (Auto) Seg Neutrophils % Nucleated RBC % Seg Neutrophils # D-Dimer ABG pH 7.519 H POC ABG pCO2 POC ABG pO2 ABG Hemoglobin 9.3 L ABG Oxyhemoglobin ABG Sodium 134.7 L ABG Potassium ABG Chloride 94.0 L ABG Glucose 441 H Carboxyhemoglobin Potassium Chloride Carbon Dioxide BUN Creatinine Glucose POC Glucose 294 H 426 H Calcium Phosphorus Magnesium Ferritin AST Alkaline Phosphatase Lactate Dehydrogenase Troponin T Total Protein Albumin HDL Cholesterol Arterial Blood Glucose 441 H Arterial Blood Ionized Calcium 3.8 L 09/01/20 05:20 WBC RBC Hgb Hct MCV MCH RDW Plt Count Lymph % (Auto) Lymph # (Auto) Seg Neutrophils % Nucleated RBC % Seg Neutrophils # D-Dimer ABG pH POC ABG pCO2 POC ABG pO2 ABG Hemoglobin ABG Oxyhemoglobin ABG Sodium ABG Potassium ABG Chloride ABG Glucose Carboxyhemoglobin Potassium Chloride Carbon Dioxide BUN Creatinine Glucose POC Glucose 422 H Calcium Phosphorus Magnesium Ferritin AST Alkaline Phosphatase Lactate Dehydrogenase Troponin T Total Protein Albumin HDL Cholesterol Arterial Blood Glucose Arterial Blood Ionized Calcium
--- NOTE | 2020-09-01 10:47 | Progress Note ---
Assessment and Plan Out of hospital cardiopulmonary arrest normal LVEF 55-60% by echocardiogram no evidence of DVT by LE duplex End-stage renal disease on hemodialysis Hx of multiple myeloma s/p chemotherapy Hypertension Diabetes Discontinue oral Amlodipine and Metoprolol. Instead, will use intravenous nitro drip and intravenous metoprolol for optimal hypertension management. Continue supportive cardiac management. Subjective Date of service: 09/01/20 Principal diagnosis: Hyperkalemia, cardiac arrest Interval history: Patient is unresponsive, on the ventilator. Blood pressure is now uncontrolled, systolic BP ranging 170's-190's. Currently, she is undergoing hemodialysis. Objective Vital Signs Temp Pulse Pulse Resp BP Pulse Ox Pulse Ox 09/01/20 10:30 108 H 152/67 09/01/20 10:20 107 H 13 161/68 100 09/01/20 10:15 105 H 161/68 09/01/20 10:10 104 H 16 157/67 100 09/01/20 10:00 104 H 24 157/67 100 09/01/20 09:50 100 H 20 166/63 100 09/01/20 09:45 96 H 166/63 09/01/20 09:40 98 H 19 172/66 100 09/01/20 09:30 100 H 23 172/66 100 09/01/20 09:20 102 H 20 175/72 100 09/01/20 09:10 108 H 23 179/66 100 09/01/20 09:06 98.2 F 113 H 19 177/69 100 09/01/20 09:05 117 H 171/64 09/01/20 09:00 108 H 21 171/64 99 09/01/20 08:50 108 H 22 186/68 99 09/01/20 08:40 111 H 26 H 186/68 100 09/01/20 08:30 110 H 20 186/68 100 09/01/20 08:20 108 H 21 172/68 100 09/01/20 08:10 108 H 20 172/68 100 09/01/20 08:00 109 H 20 172/68 100 09/01/20 07:52 112 H 21 100 09/01/20 07:51 97 H 09/01/20 07:50 109 H 20 178/65 100 09/01/20 07:40 113 H 21 178/65 100 09/01/20 07:30 109 H 22 178/65 100 09/01/20 07:20 111 H 22 185/68 100 09/01/20 07:10 110 H 25 H 185/68 99 09/01/20 07:00 112 H 23 185/68 99 09/01/20 06:50 106 H 14 194/70 100 09/01/20 06:40 114 H 22 194/70 100 09/01/20 06:30 111 H 20 194/70 100 09/01/20 06:20 113 H 19 187/71 100 09/01/20 06:10 115 H 12 100 09/01/20 06:00 114 H 22 193/73 100 09/01/20 05:50 114 H 21 193/73 99 09/01/20 05:40 114 H 25 H 193/73 99 09/01/20 05:30 114 H 22 193/73 99 09/01/20 05:20 114 H 19 185/62 99 09/01/20 05:10 114 H 23 185/62 99 09/01/20 05:00 117 H 26 H 185/62 99 09/01/20 04:50 119 H 22 185/68 99 09/01/20 04:40 120 H 20 185/68 99 09/01/20 04:30 115 H 22 185/68 99 09/01/20 04:25 116 H 167/71 99 09/01/20 04:20 117 H 25 H 167/71 99 09/01/20 04:10 117 H 24 167/71 99 09/01/20 04:00 119 H 114 H 24 175/65 98 09/01/20 03:50 124 H 22 175/65 96 09/01/20 03:40 126 H 25 H 175/65 98 09/01/20 03:30 124 H 16 191/70 98 09/01/20 03:24 101.1 F H 09/01/20 03:20 123 H 26 H 191/70 98 09/01/20 03:10 126 H 24 191/70 98 09/01/20 03:00 127 H 24 190/67 98 09/01/20 02:50 129 H 21 191/70 98 09/01/20 02:40 127 H 24 191/70 98 09/01/20 02:30 128 H 24 191/70 98 09/01/20 02:20 128 H 26 H 186/70 98 09/01/20 02:10 130 H 26 H 186/70 98 09/01/20 02:00 131 H 26 H 192/70 98 09/01/20 01:50 132 H 26 H 192/70 98 09/01/20 01:40 133 H 28 H 192/70 98 09/01/20 01:30 133 H 27 H 192/71 98 09/01/20 01:20 133 H 26 H 192/71 98 09/01/20 01:10 130 H 26 H 192/71 98 09/01/20 01:00 131 H 26 H 188/70 98 09/01/20 00:50 131 H 27 H 188/70 98 09/01/20 00:40 132 H 28 H 188/70 98 09/01/20 00:30 137 H 30 H 188/70 98 09/01/20 00:20 134 H 28 H 188/65 97 09/01/20 00:10 135 H 25 H 188/65 97 09/01/20 00:00 100.9 F H 138 H 138 H 28 H 193/72 98 08/31/20 23:50 129 H 25 H 193/72 98 08/31/20 23:40 129 H 25 H 193/72 97 08/31/20 23:30 129 H 26 H 187/69 97 08/31/20 23:20 131 H 26 H 187/69 97 08/31/20 23:10 132 H 26 H 187/69 97 08/31/20 23:00 131 H 27 H 192/71 97 08/31/20 22:50 132 H 26 H 187/69 97 08/31/20 22:40 131 H 26 H 187/69 97 08/31/20 22:30 131 H 26 H 187/69 97 08/31/20 22:20 132 H 27 H 183/66 97 08/31/20 22:10 130 H 26 H 183/66 97 08/31/20 22:00 130 H 27 H 191/65 97 08/31/20 21:50 129 H 28 H 191/65 97 08/31/20 21:48 130 H 191/65 08/31/20 21:40 128 H 24 191/65 97 08/31/20 21:30 131 H 28 H 191/65 97 08/31/20 21:20 127 H 28 H 175/70 97 08/31/20 21:10 127 H 30 H 175/70 96 08/31/20 21:00 124 H 31 H 188/65 97 08/31/20 20:57 124 H 190/75 96 08/31/20 20:50 124 H 30 H 190/75 96 08/31/20 20:40 118 H 28 H 190/75 96 08/31/20 20:30 116 H 26 H 190/75 96 08/31/20 20:20 116 H 23 190/75 97 08/31/20 20:10 114 H 24 190/75 97 08/31/20 20:00 100.8 F H 116 H 118 H 23 171/66 97 08/31/20 19:50 118 H 24 171/66 97 08/31/20 19:40 116 H 24 171/66 97 08/31/20 19:32 116 H 190/75 08/31/20 19:30 116 H 25 H 171/66 97 08/31/20 19:20 117 H 25 H 171/66 97 08/31/20 19:10 119 H 26 H 171/66 97 08/31/20 19:00 118 H 28 H 175/71 97 08/31/20 18:50 119 H 28 H 175/71 97 08/31/20 18:40 117 H 28 H 175/71 97 08/31/20 18:30 113 H 29 H 175/71 97 08/31/20 18:20 109 H 18 175/71 97 08/31/20 18:10 108 H 19 175/71 97 08/31/20 18:00 106 H 20 181/79 97 08/31/20 17:50 106 H 20 181/79 97 08/31/20 17:40 105 H 19 181/79 96 08/31/20 17:30 120 H 20 181/79 96 08/31/20 17:20 119 H 22 181/79 97 08/31/20 17:14 117 H 181/79 96 08/31/20 17:10 120 H 20 181/79 95 08/31/20 17:00 118 H 21 188/77 94 08/31/20 16:50 118 H 22 188/77 95 08/31/20 16:40 121 H 23 188/77 95 08/31/20 16:30 118 H 20 188/77 97 08/31/20 16:20 119 H 22 188/77 96 08/31/20 16:10 116 H 21 188/77 96 08/31/20 16:00 116 H 116 H 20 164/75 97 08/31/20 15:50 115 H 21 164/75 97 08/31/20 15:40 118 H 20 164/75 97 08/31/20 15:30 115 H 20 115/79 98 08/31/20 15:10 115 H 20 183/78 99 08/31/20 15:00 112 H 28 H 115/79 100 08/31/20 14:50 116 H 28 H 115/79 100 08/31/20 14:40 112 H 28 H 141/75 100 08/31/20 14:30 98.4 F 115 H 28 H 194/76 100 100 08/31/20 14:20 115 H 28 H 194/76 100 08/31/20 14:15 114 H 194/76 08/31/20 14:10 115 H 28 H 158/75 100 08/31/20 14:00 116 H 28 H 166/74 100 08/31/20 13:50 114 H 28 H 166/74 100 08/31/20 13:45 115 H 166/74 08/31/20 13:40 112 H 28 H 146/72 08/31/20 13:30 112 H 28 H 150/74 100 08/31/20 13:20 114 H 28 H 150/74 100 08/31/20 13:15 114 H 164/77 08/31/20 13:10 113 H 28 H 143/38 100 08/31/20 13:00 114 H 28 H 150/74 08/31/20 12:50 113 H 28 H 150/74 100 08/31/20 12:45 113 H 150/74 08/31/20 12:41 112 H 142/76 08/31/20 12:40 112 H 28 H 142/76 100 08/31/20 12:30 116 H 28 H 143/69 100 08/31/20 12:20 114 H 28 H 143/69 100 08/31/20 12:15 113 H 143/69 08/31/20 12:10 107 H 28 H 132/64 100 08/31/20 12:01 111 H 132/64 08/31/20 12:00 98.4 F 109 H 114 H 28 H 140/68 99 08/31/20 11:50 108 H 28 H 140/68 100 08/31/20 11:45 109 H 140/68 08/31/20 11:40 104 H 28 H 145/69 100 08/31/20 11:30 105 H 28 H 145/69 100 08/31/20 11:20 192/55 100 08/31/20 11:15 104 H 148/65 08/31/20 11:10 106 H 28 H 192/55 100 08/31/20 11:00 102 H 28 H 135/57 100 08/31/20 10:50 96 H 28 H 135/57 99 08/31/20 10:45 97 H 135/57 - Physical Examination General: Other (unresponsive on the vent) HEENT: Positive: Other (Pupils fixed) Cardiac: Positive: Tachycardia Neuro: Positive: Other (Unresponsive, on the vent) - Allied health notes Allied health notes reviewed: nursing
--- NOTE | 2020-09-01 11:05 | Progress Note ---
Assessment and Plan - Patient Problems (1) Hyperkalemia Current Visit: Yes Status: Acute Plan to address problem: Emergent dialysis was done for hyperkalemia on presentation. Potassium was still high yesterday and so patient was dialyzed again. Unfortunately potassium was not checked this morning before dialysis. If hyperkalemia is persisting, will insist we look for source ? Ischemia. Follow-up potassium this afternoon after dialysis and again in the morning (2) Cardiac arrest Current Visit: Yes Status: Acute Plan to address problem: Etiology uncertain. Cardiology evaluating patient. (3) End-stage renal disease on hemodialysis Current Visit: Yes Status: Acute Plan to address problem: Hemodialysis was done yesterday for solute clearance due to hyperkalemia. Now back on regular schedule today. Another 2 L ultrafiltration on dialysis today. Follow-up potassium (4) Hypertensive urgency Current Visit: Yes Status: Acute Plan to address problem: Blood pressure was elevated on presentation but has improved. Follow-up blood pressure (5) Bilateral pulmonary infiltrates on chest x-ray Current Visit: Yes Status: Acute Plan to address problem: Probably secondary to pulmonary edema. Possibility of multifocal pneumonia being entertained. Repeat chest x-ray still showed bilateral discharge infiltrates. Continue antibiotics -meropenem per infectious disease. Follow-up cultures Subjective Date of service: 09/01/20 Principal diagnosis: Hyperkalemia, cardiac arrest Interval history: Patient seen lying in bed in the ICU. Condition is about the same. She is not on vasopressors. She is on fentanyl and Diprivan infusions. Her potassium was not checked this morning. Unfortunately she is already on dialysis. Objective - Exam Narrative Exam: Middle-aged -[place] female lying in bed in ICU intubated on ventilator on Diprivan and fentanyl infusions HEENT: NCAT, moving her eyes nonpurposefully, Neck: Supple, no venous distention CVS: S1S2 RRR with no murmur, rub or gallop Chest: Clear to auscultation Abdomen: Protuberant, soft to firm, nontender, no organomegaly, bowel sounds are present Extremities: No edema Genitourinary deferred Skin warm and dry no rash Neuro: Eyes open, moving her eyes nonpurposefully, not following commands - Vital Signs Vital signs: Vital Signs - 12hr 08/31/20 08/31/20 08/31/20 23:10 23:20 23:30 Temperature Pulse Rate 132 H 131 H 129 H Pulse Rate [ From Monitor] Respiratory 26 H 26 H 26 H Rate Blood Pressure 187/69 187/69 187/69 O2 Sat by Pulse 97 97 97 Oximetry O2 Sat by Pulse Oximetry [ Bilateral Throughout] 08/31/20 08/31/20 09/01/20 23:40 23:50 00:00 Temperature 100.9 F H Pulse Rate 129 H 129 H 138 H Pulse Rate [ 138 H From Monitor] Respiratory 25 H 25 H 28 H Rate Blood Pressure 193/72 193/72 193/72 O2 Sat by Pulse 97 98 98 Oximetry O2 Sat by Pulse Oximetry [ Bilateral Throughout] 09/01/20 09/01/20 09/01/20 00:10 00:20 00:30 Temperature Pulse Rate 135 H 134 H 137 H Pulse Rate [ From Monitor] Respiratory 25 H 28 H 30 H Rate Blood Pressure 188/65 188/65 188/70 O2 Sat by Pulse 97 97 98 Oximetry O2 Sat by Pulse Oximetry [ Bilateral Throughout] 09/01/20 09/01/20 09/01/20 00:40 00:50 01:00 Temperature Pulse Rate 132 H 131 H 131 H Pulse Rate [ From Monitor] Respiratory 28 H 27 H 26 H Rate Blood Pressure 188/70 188/70 188/70 O2 Sat by Pulse 98 98 98 Oximetry O2 Sat by Pulse Oximetry [ Bilateral Throughout] 09/01/20 09/01/20 09/01/20 01:10 01:20 01:30 Temperature Pulse Rate 130 H 133 H 133 H Pulse Rate [ From Monitor] Respiratory 26 H 26 H 27 H Rate Blood Pressure 192/71 192/71 192/71 O2 Sat by Pulse 98 98 98 Oximetry O2 Sat by Pulse Oximetry [ Bilateral Throughout] 09/01/20 09/01/20 09/01/20 01:40 01:50 02:00 Temperature Pulse Rate 133 H 132 H 131 H Pulse Rate [ From Monitor] Respiratory 28 H 26 H 26 H Rate Blood Pressure 192/70 192/70 192/70 O2 Sat by Pulse 98 98 98 Oximetry O2 Sat by Pulse Oximetry [ Bilateral Throughout] 09/01/20 09/01/20 09/01/20 02:10 02:20 02:30 Temperature Pulse Rate 130 H 128 H 128 H Pulse Rate [ From Monitor] Respiratory 26 H 26 H 24 Rate Blood Pressure 186/70 186/70 191/70 O2 Sat by Pulse 98 98 98 Oximetry O2 Sat by Pulse Oximetry [ Bilateral Throughout] 09/01/20 09/01/20 09/01/20 02:40 02:50 03:00 Temperature Pulse Rate 127 H 129 H 127 H Pulse Rate [ From Monitor] Respiratory 24 21 24 Rate Blood Pressure 191/70 191/70 190/67 O2 Sat by Pulse 98 98 98 Oximetry O2 Sat by Pulse Oximetry [ Bilateral Throughout] 09/01/20 09/01/20 09/01/20 03:10 03:20 03:24 Temperature 101.1 F H Pulse Rate 126 H 123 H Pulse Rate [ From Monitor] Respiratory 24 26 H Rate Blood Pressure 191/70 191/70 O2 Sat by Pulse 98 98 Oximetry O2 Sat by Pulse Oximetry [ Bilateral Throughout] 09/01/20 09/01/20 09/01/20 03:30 03:40 03:50 Temperature Pulse Rate 124 H 126 H 124 H Pulse Rate [ From Monitor] Respiratory 16 25 H 22 Rate Blood Pressure 191/70 175/65 175/65 O2 Sat by Pulse 98 98 96 Oximetry O2 Sat by Pulse Oximetry [ Bilateral Throughout] 09/01/20 09/01/20 09/01/20 04:00 04:10 04:20 Temperature Pulse Rate 119 H 117 H 117 H Pulse Rate [ 114 H From Monitor] Respiratory 24 24 25 H Rate Blood Pressure 175/65 167/71 167/71 O2 Sat by Pulse 98 99 99 Oximetry O2 Sat by Pulse Oximetry [ Bilateral Throughout] 09/01/20 09/01/20 09/01/20 04:25 04:30 04:40 Temperature Pulse Rate 116 H 115 H 120 H Pulse Rate [ From Monitor] Respiratory 22 20 Rate Blood Pressure 167/71 185/68 185/68 O2 Sat by Pulse 99 99 99 Oximetry O2 Sat by Pulse Oximetry [ Bilateral Throughout] 09/01/20 09/01/20 09/01/20 04:50 05:00 05:10 Temperature Pulse Rate 119 H 117 H 114 H Pulse Rate [ From Monitor] Respiratory 22 26 H 23 Rate Blood Pressure 185/68 185/62 185/62 O2 Sat by Pulse 99 99 99 Oximetry O2 Sat by Pulse Oximetry [ Bilateral Throughout] 09/01/20 09/01/20 09/01/20 05:20 05:30 05:40 Temperature Pulse Rate 114 H 114 H 114 H Pulse Rate [ From Monitor] Respiratory 19 22 25 H Rate Blood Pressure 185/62 193/73 193/73 O2 Sat by Pulse 99 99 99 Oximetry O2 Sat by Pulse Oximetry [ Bilateral Throughout] 09/01/20 09/01/20 09/01/20 05:50 06:00 06:10 Temperature Pulse Rate 114 H 114 H 115 H Pulse Rate [ From Monitor] Respiratory 21 22 12 Rate Blood Pressure 193/73 193/73 O2 Sat by Pulse 99 100 100 Oximetry O2 Sat by Pulse Oximetry [ Bilateral Throughout] 09/01/20 09/01/20 09/01/20 06:20 06:30 06:40 Temperature Pulse Rate 113 H 111 H 114 H Pulse Rate [ From Monitor] Respiratory 19 20 22 Rate Blood Pressure 187/71 194/70 194/70 O2 Sat by Pulse 100 100 100 Oximetry O2 Sat by Pulse Oximetry [ Bilateral Throughout] 09/01/20 09/01/20 09/01/20 06:50 07:00 07:10 Temperature Pulse Rate 106 H 112 H 110 H Pulse Rate [ From Monitor] Respiratory 14 23 25 H Rate Blood Pressure 194/70 185/68 185/68 O2 Sat by Pulse 100 99 99 Oximetry O2 Sat by Pulse Oximetry [ Bilateral Throughout] 09/01/20 09/01/20 09/01/20 07:20 07:30 07:40 Temperature Pulse Rate 111 H 109 H 113 H Pulse Rate [ From Monitor] Respiratory 22 22 21 Rate Blood Pressure 185/68 178/65 178/65 O2 Sat by Pulse 100 100 100 Oximetry O2 Sat by Pulse Oximetry [ Bilateral Throughout] 09/01/20 09/01/20 09/01/20 07:50 07:51 07:52 Temperature Pulse Rate 109 H 97 H Pulse Rate [ 112 H From Monitor] Respiratory 20 21 Rate Blood Pressure 178/65 O2 Sat by Pulse 100 100 Oximetry O2 Sat by Pulse Oximetry [ Bilateral Throughout] 09/01/20 09/01/20 09/01/20 08:00 08:10 08:20 Temperature Pulse Rate 109 H 108 H 108 H Pulse Rate [ From Monitor] Respiratory 20 20 21 Rate Blood Pressure 172/68 172/68 172/68 O2 Sat by Pulse 100 100 100 Oximetry O2 Sat by Pulse Oximetry [ Bilateral Throughout] 09/01/20 09/01/20 09/01/20 08:30 08:40 08:50 Temperature Pulse Rate 110 H 111 H 108 H Pulse Rate [ From Monitor] Respiratory 20 26 H 22 Rate Blood Pressure 186/68 186/68 186/68 O2 Sat by Pulse 100 100 99 Oximetry O2 Sat by Pulse Oximetry [ Bilateral Throughout] 09/01/20 09/01/20 09/01/20 09:00 09:05 09:06 Temperature 98.2 F Pulse Rate 108 H 117 H 113 H Pulse Rate [ From Monitor] Respiratory 21 19 Rate Blood Pressure 171/64 171/64 177/69 O2 Sat by Pulse 99 Oximetry O2 Sat by Pulse 100 Oximetry [ Bilateral Throughout] 09/01/20 09/01/20 09/01/20 09:10 09:20 09:30 Temperature Pulse Rate 108 H 102 H 100 H Pulse Rate [ From Monitor] Respiratory 23 20 23 Rate Blood Pressure 179/66 175/72 172/66 O2 Sat by Pulse 100 100 100 Oximetry O2 Sat by Pulse Oximetry [ Bilateral Throughout] 09/01/20 09/01/20 09/01/20 09:40 09:45 09:50 Temperature Pulse Rate 98 H 96 H 100 H Pulse Rate [ From Monitor] Respiratory 19 20 Rate Blood Pressure 172/66 166/63 166/63 O2 Sat by Pulse 100 100 Oximetry O2 Sat by Pulse Oximetry [ Bilateral Throughout] 09/01/20 09/01/20 09/01/20 10:00 10:10 10:15 Temperature Pulse Rate 104 H 104 H 105 H Pulse Rate [ From Monitor] Respiratory 24 16 Rate Blood Pressure 157/67 157/67 161/68 O2 Sat by Pulse 100 100 Oximetry O2 Sat by Pulse Oximetry [ Bilateral Throughout] 09/01/20 09/01/20 09/01/20 10:20 10:30 10:45 Temperature Pulse Rate 107 H 108 H 111 H Pulse Rate [ From Monitor] Respiratory 13 Rate Blood Pressure 161/68 152/67 152/68 O2 Sat by Pulse 100 Oximetry O2 Sat by Pulse Oximetry [ Bilateral Throughout] 09/01/20 11:00 Temperature Pulse Rate 113 H Pulse Rate [ From Monitor] Respiratory Rate Blood Pressure 147/64 O2 Sat by Pulse Oximetry O2 Sat by Pulse Oximetry [ Bilateral Throughout] - Lab 08/31/20 05:45 08/31/20 05:45 Most recent lab results ABG pH 7.519 (7.320-7.450) H 09/01/20 03:13 ABG O2 Saturation 97.4 (0-100) 09/01/20 03:13 Calcium 7.6 mg/dL (8.4-10.2) L 08/31/20 05:45 Phosphorus 11.50 mg/dL (2.5-4.5) H 08/30/20 00:15 Magnesium 3.80 mg/dL (1.7-2.3) H 08/30/20 00:15 Medications & Allergies - Medications Allergies/Adverse Reactions: Allergies No Known Allergies Allergy (Verified 08/30/20 22:43) Home Medications: Home Medications Medication Instructions Recorded Confirmed Last Taken Type Acyclovir [Zovirax Tab] 400 mg PO BID 08/30/20 08/30/20 Unknown History Amlodipine Besylate 10 mg PO DAILY 08/30/20 08/30/20 Unknown History Furosemide [Lasix] 40 mg PO DAILY 08/30/20 08/30/20 Unknown History Gabapentin [Neurontin] 600 mg PO BID 08/30/20 08/30/20 Unknown History Imdur ER 30 mg PO DAILY 08/30/20 08/30/20 Unknown History Losartan/Hydrochlorothiazide 1 each PO DAILY 08/30/20 08/30/20 Unknown History [Losartan-Hctz 100-25 mg Tab] Mirtazapine [Remeron] 30 mg PO HS 08/30/20 08/30/20 Unknown History RX: Losartan Potassium 50 mg PO BID 08/30/20 08/30/20 Unknown History RX: Metoprolol Tartrate 25 mg PO BID 08/30/20 08/30/20 Unknown History Sevelamer Carbonate [Renvela] 800 mg PO TIDWM 08/30/20 08/30/20 Unknown History Vit B Complx C/Folic Acid/Zinc 0.8 mg PO DAILY 08/30/20 08/30/20 Unknown History [Dialyvite 800-Zinc 15 Tab] Zolpidem Tartrate [Edluar SUBL] 5 mg PO QHS PRN 08/30/20 08/30/20 Unknown History calcitrioL 0.5 mcg PO DAILY 08/30/20 08/30/20 Unknown History Active Medications: Generic Name Dose Route Start Last Admin Trade Name Freq PRN Reason Stop Dose Admin Acetaminophen 650 mg 09/01/20 00:27 09/01/20 06:25 Acetaminophen 325 Mg/10.15 Ml Oral Liqd Unit Dose FEEDTUBE 650 mg Q6H PRN Administration Non Cardiac Pain or Temp>100.5 Lipase/Protease/Amylase 1 each 08/30/20 14:27 Lipase 10,500/Protease 25,000/Amylase 43,750 (Units) Dr Cap FEEDTUBE PRN PRN For Clogged Feeding Tube Dextrose 50 ml 08/30/20 19:48 Dextrose 50% In Water (25gm) 50 Ml Syringe IV Q30MIN PRN Hypoglycemia Protocol Famotidine 20 mg 09/02/20 10:00 Famotidine 20 Mg Tab PO DAILY ANIYAH Fentanyl 50 mcg 08/30/20 14:05 Fentanyl 100 Mcg/2 Ml Inj IV Q10MIN PRN ANALGESIA Heparin Sodium (Porcine) 5,000 unit 08/30/20 06:00 09/01/20 06:25 Heparin 5,000 Unit/1 Ml Vial SUB-Q 5,000 unit Q8HR ANIYAH Administration Hydralazine HCl 10 mg 08/31/20 18:14 08/31/20 21:48 Hydralazine 20 Mg/1 Ml Inj IV 10 mg Q4HR PRN Administration Hypertension Hydrophilic Ointment 1 applic 08/30/20 14:05 Lip Therapy Vaseline TP Q2HR PRN Dry Lips Sodium Chloride 100 mls @ 999 mls/hr 08/30/20 09:00 Nacl 0.9% IV ARMIDA PRN Hypotension Propofol 1,000 mg in 100 mls @ 2.381 mls/hr 08/30/20 13:00 08/31/20 16:39 Diprivan 10 Mg/Ml IV 0 mcg/kg/min TITR ANIYAH 0 mls/hr Titration Protocol 5 MCG/KG/MIN Meropenem 500 mg in 50 mls @ 50 mls/hr 08/30/20 14:00 08/31/20 15:30 Merrem/Ns 500 Mg/50 Ml IV Infused Q24H ANIYAH Infusion Fentanyl Citrate 2,000 mcg in 100 mls @ 3.969 mls/hr 08/30/20 15:00 09/01/20 08:51 Fentanyl Drip Premix IV 0 mcg/kg/hr TITR ANIYAH 0 mls/hr Titration Protocol 1 MCG/KG/HR Nitroglycerin/Dextrose 50 mg in 250 mls @ 6 mls/hr 09/01/20 11:00 Tridil Drip 50mg/250ml IV TITR [facility] Protocol 20 MCG/MIN Insulin Glargine 10 units 08/31/20 22:00 08/31/20 21:48 Insulin Glargine 100 Units/Ml SUB-Q 10 units QHS [facility] Administration Insulin Glargine 10 units 09/01/20 10:00 09/01/20 10:36 Insulin Glargine 100 Units/Ml SUB-Q 10 units DAILY [facility] Administration Insulin Human Regular 0 units 09/01/20 10:00 09/01/20 10:36 Insulin Regular, Human 100 Units/1 Ml SUB-Q 4 units Q4HR [facility] Administration Protocol Magnesium Hydroxide 30 ml 08/30/20 04:41 Magnesium Hydroxide (Mom) Oral Liqd Udc PO Q4H PRN Constipation Metoprolol Tartrate 5 mg 09/01/20 12:00 Metoprolol Tartrate 5 Mg/5 Ml Inj IV Q6HR [facility] Multi-Ingred Cream/Lotion/Oil/Oint 1 applic 08/30/20 14:05 08/31/20 01:17 Mineral Oil/Petrolatum, White Ophth Oint 3.5 Gm OU 1 applic Q4HR PRN Administration Dry Eye(s) Ondansetron HCl 4 mg 08/30/20 04:41 Ondansetron 4 Mg/2 Ml Inj IV Q8H PRN Nausea And Vomiting Senna/Docusate Sodium 1 tab 08/30/20 22:00 09/01/20 09:10 Sennosides/Docusate Sodium 8.6/50 Mg Tab FEEDTUBE Not Given BID [facility] Simple Syrup 15 ml 08/30/20 14:27 Simple Syrup 15 Ml FEEDTUBE PRN PRN Hypoglycemia Simple Syrup 30 ml 08/30/20 14:27 Simple Syrup 15 Ml FEEDTUBE PRN PRN Hypoglycemia Sodium Bicarbonate 325 mg 08/30/20 14:27 Sodium Bicarbonate 325 Mg Tab FEEDTUBE PRN PRN For Clogged Feeding Tube Sodium Chloride 10 ml 08/30/20 10:00 09/01/20 09:02 Sodium Chloride 0.9% 10 Ml Flush Syringe IV Not Given BID ANIYAH Sodium Chloride 10 ml 08/30/20 04:41 Sodium Chloride 0.9% 10 Ml Flush Syringe IV PRN PRN LINE FLUSH
[2020-09-01] MEDS: METOPROLOL TARTRATE 5 MG/5 ML INJ IV SCH ×2 (13:17→17:15)
--- NOTE | 2020-09-01 13:49 | Progress Note ---
Assessment and Plan Cardiac arrest with return of spontaneous circulation Acute hypoxemic respiratory failure Bilateral pneumonia, possibly aspiration Bilateral pulmonary edema End-stage renal disease, on dialysis NSTEMI Severe hyperkalemia History of multiple myeloma History of hypertension Anemia that is microcytic Elevated serum troponin - follow MRI brain - reduced set rate to 12/min - begin SBT's in am - AMS remains rate limiting step to safe extubation - tolerated dialysis well today - continue Meropenem; de-escalate per ID reciommendations - continue care as below; - continue Daily SAT and SBT assessment as tolerated - continue to wean supplemental oxygen for target O2 sat's > 90% acutely - VAP bundle addressed - continue lung protective strategies - continue bronchodilators with pulmonary hygiene per RT - wean per pulmonary driven protocols otherwise - continue HD/UF for toxin and volume clearance - avoid nephrotoxins, renally dose all medications - continue accuchecks with glycemic control per SSI (While critically ill target blood glucose of 140-180 mg/dL; avoid hypoglycemia) - sedation prn for target RASS 0 to -1 - continue to avoid benzodiazepine's, reduce the possibility of delirium - complete AB's per ID rec's - prn analgesia per CPOT score - Maintenance of sleep-wake cycle, avoid delirium - continue enteral nutritional support at goal rate as tolerated - G.I. & VTE prophylaxis - PT/OT/ROM exercises - continue mobility protocols for pressure ulcer prophylaxis - Monitor hemodynamics closely - continue other care per attending / other consultants - discharge planning ongoing concurrently COVID SPECIFIC INTERVENTIONS - COVID PCR negative .... Re-evaluate in am & prn CONDITION: CRITICAL PROGNOSIS: GUARDED CODE STATUS: FULL CODE The high probability of a clinically significant, sudden or life-threatening deterioration of the [respiratory, cardiovascular, hematologic, renal & neurologic] system(s) required my full and direct attention, intervention and personal management. The aggregate critical care time was [35] minutes without overlap. Time includes spent on; [x] Data Review and interpretation [x] Patient assessment and monitoring of vital signs [x] Documentation [x] Medication orders and management Subjective Date of service: 09/01/20 Principal diagnosis: Cardiac arrest; Ac. hypoxemic resp failure; PNA; ESRD; NSTEMI; Hyperkalemia Interval history: Patient is seen today for: Cardiac arrest with ROSC; Acute hypoxemic respiratory failure; Aspiration Pneumonia; ESRD on dialysis; NSTEMI; Hyperkalemia Seen and examined at bedside; 24hour events reviewed; nursing and respiratory care staff consulted; no adverse overnight events reported to me; resting peacefully in bed; about to go for MRI; AMS is persistent; has had low grade fev ers overnight; no emesis or overt aspiration; no witnessed seizures; tolerated bedside SBT Objective Vital Signs - 12hr 09/01/20 09/01/20 09/01/20 01:50 02:00 02:10 Temperature Pulse Rate 132 H 131 H 130 H Pulse Rate [ From Monitor] Respiratory 26 H 26 H 26 H Rate Blood Pressure 192/70 192/70 186/70 O2 Sat by Pulse 98 98 98 Oximetry O2 Sat by Pulse Oximetry [ Bilateral Throughout] 09/01/20 09/01/20 09/01/20 02:20 02:30 02:40 Temperature Pulse Rate 128 H 128 H 127 H Pulse Rate [ From Monitor] Respiratory 26 H 24 24 Rate Blood Pressure 186/70 191/70 191/70 O2 Sat by Pulse 98 98 98 Oximetry O2 Sat by Pulse Oximetry [ Bilateral Throughout] 09/01/20 09/01/20 09/01/20 02:50 03:00 03:10 Temperature Pulse Rate 129 H 127 H 126 H Pulse Rate [ From Monitor] Respiratory 21 24 24 Rate Blood Pressure 191/70 190/67 191/70 O2 Sat by Pulse 98 98 98 Oximetry O2 Sat by Pulse Oximetry [ Bilateral Throughout] 09/01/20 09/01/20 09/01/20 03:20 03:24 03:30 Temperature 101.1 F H Pulse Rate 123 H 124 H Pulse Rate [ From Monitor] Respiratory 26 H 16 Rate Blood Pressure 191/70 191/70 O2 Sat by Pulse 98 98 Oximetry O2 Sat by Pulse Oximetry [ Bilateral Throughout] 09/01/20 09/01/20 09/01/20 03:40 03:50 04:00 Temperature Pulse Rate 126 H 124 H 119 H Pulse Rate [ 114 H From Monitor] Respiratory 25 H 22 24 Rate Blood Pressure 175/65 175/65 175/65 O2 Sat by Pulse 98 96 98 Oximetry O2 Sat by Pulse Oximetry [ Bilateral Throughout] 09/01/20 09/01/20 09/01/20 04:10 04:20 04:25 Temperature Pulse Rate 117 H 117 H 116 H Pulse Rate [ From Monitor] Respiratory 24 25 H Rate Blood Pressure 167/71 167/71 167/71 O2 Sat by Pulse 99 99 99 Oximetry O2 Sat by Pulse Oximetry [ Bilateral Throughout] 09/01/20 09/01/20 09/01/20 04:30 04:40 04:50 Temperature Pulse Rate 115 H 120 H 119 H Pulse Rate [ From Monitor] Respiratory 22 20 22 Rate Blood Pressure 185/68 185/68 185/68 O2 Sat by Pulse 99 99 99 Oximetry O2 Sat by Pulse Oximetry [ Bilateral Throughout] 09/01/20 09/01/20 09/01/20 05:00 05:10 05:20 Temperature Pulse Rate 117 H 114 H 114 H Pulse Rate [ From Monitor] Respiratory 26 H 23 19 Rate Blood Pressure 185/62 185/62 185/62 O2 Sat by Pulse 99 99 99 Oximetry O2 Sat by Pulse Oximetry [ Bilateral Throughout] 09/01/20 09/01/20 09/01/20 05:30 05:40 05:50 Temperature Pulse Rate 114 H 114 H 114 H Pulse Rate [ From Monitor] Respiratory 22 25 H 21 Rate Blood Pressure 193/73 193/73 193/73 O2 Sat by Pulse 99 99 99 Oximetry O2 Sat by Pulse Oximetry [ Bilateral Throughout] 09/01/20 09/01/20 09/01/20 06:00 06:10 06:20 Temperature Pulse Rate 114 H 115 H 113 H Pulse Rate [ From Monitor] Respiratory 22 12 19 Rate Blood Pressure 193/73 187/71 O2 Sat by Pulse 100 100 100 Oximetry O2 Sat by Pulse Oximetry [ Bilateral Throughout] 09/01/20 09/01/20 09/01/20 06:30 06:40 06:50 Temperature Pulse Rate 111 H 114 H 106 H Pulse Rate [ From Monitor] Respiratory 20 22 14 Rate Blood Pressure 194/70 194/70 194/70 O2 Sat by Pulse 100 100 100 Oximetry O2 Sat by Pulse Oximetry [ Bilateral Throughout] 09/01/20 09/01/20 09/01/20 07:00 07:10 07:20 Temperature Pulse Rate 112 H 110 H 111 H Pulse Rate [ From Monitor] Respiratory 23 25 H 22 Rate Blood Pressure 185/68 185/68 185/68 O2 Sat by Pulse 99 99 100 Oximetry O2 Sat by Pulse Oximetry [ Bilateral Throughout] 09/01/20 09/01/20 09/01/20 07:30 07:40 07:50 Temperature Pulse Rate 109 H 113 H 109 H Pulse Rate [ From Monitor] Respiratory 22 21 20 Rate Blood Pressure 178/65 178/65 178/65 O2 Sat by Pulse 100 100 100 Oximetry O2 Sat by Pulse Oximetry [ Bilateral Throughout] 09/01/20 09/01/20 09/01/20 07:51 07:52 08:00 Temperature Pulse Rate 97 H 109 H Pulse Rate [ 112 H From Monitor] Respiratory 21 20 Rate Blood Pressure 172/68 O2 Sat by Pulse 100 100 Oximetry O2 Sat by Pulse Oximetry [ Bilateral Throughout] 09/01/20 09/01/20 09/01/20 08:10 08:20 08:30 Temperature Pulse Rate 108 H 108 H 110 H Pulse Rate [ From Monitor] Respiratory 20 21 20 Rate Blood Pressure 172/68 172/68 186/68 O2 Sat by Pulse 100 100 100 Oximetry O2 Sat by Pulse Oximetry [ Bilateral Throughout] 09/01/20 09/01/20 09/01/20 08:40 08:50 09:00 Temperature Pulse Rate 111 H 108 H 108 H Pulse Rate [ From Monitor] Respiratory 26 H 22 21 Rate Blood Pressure 186/68 186/68 171/64 O2 Sat by Pulse 100 99 99 Oximetry O2 Sat by Pulse Oximetry [ Bilateral Throughout] 09/01/20 09/01/20 09/01/20 09:05 09:06 09:10 Temperature 98.2 F Pulse Rate 117 H 113 H 108 H Pulse Rate [ From Monitor] Respiratory 19 23 Rate Blood Pressure 171/64 177/69 179/66 O2 Sat by Pulse 100 Oximetry O2 Sat by Pulse 100 Oximetry [ Bilateral Throughout] 09/01/20 09/01/20 09/01/20 09:20 09:25 09:30 Temperature Pulse Rate 102 H 116 H 100 H Pulse Rate [ From Monitor] Respiratory 20 23 Rate Blood Pressure 175/72 172/64 172/66 O2 Sat by Pulse 100 100 100 Oximetry O2 Sat by Pulse Oximetry [ Bilateral Throughout] 09/01/20 09/01/20 09/01/20 09:40 09:45 09:50 Temperature Pulse Rate 98 H 96 H 100 H Pulse Rate [ From Monitor] Respiratory 19 20 Rate Blood Pressure 172/66 166/63 166/63 O2 Sat by Pulse 100 100 Oximetry O2 Sat by Pulse Oximetry [ Bilateral Throughout] 09/01/20 09/01/20 09/01/20 10:00 10:10 10:15 Temperature Pulse Rate 104 H 104 H 105 H Pulse Rate [ From Monitor] Respiratory 24 16 Rate Blood Pressure 157/67 157/67 161/68 O2 Sat by Pulse 100 100 Oximetry O2 Sat by Pulse Oximetry [ Bilateral Throughout] 09/01/20 09/01/20 09/01/20 10:20 10:30 10:40 Temperature Pulse Rate 107 H 108 H 111 H Pulse Rate [ From Monitor] Respiratory 13 19 24 Rate Blood Pressure 161/68 152/67 152/67 O2 Sat by Pulse 100 100 100 Oximetry O2 Sat by Pulse Oximetry [ Bilateral Throughout] 09/01/20 09/01/20 09/01/20 10:45 10:50 11:00 Temperature Pulse Rate 111 H 112 H 113 H Pulse Rate [ From Monitor] Respiratory 22 24 Rate Blood Pressure 152/68 152/68 147/64 O2 Sat by Pulse 100 100 Oximetry O2 Sat by Pulse Oximetry [ Bilateral Throughout] 09/01/20 09/01/20 09/01/20 11:10 11:15 11:20 Temperature Pulse Rate 115 H 114 H 115 H Pulse Rate [ From Monitor] Respiratory 24 26 H Rate Blood Pressure 147/64 131/65 131/65 O2 Sat by Pulse 100 100 Oximetry O2 Sat by Pulse Oximetry [ Bilateral Throughout] 09/01/20 09/01/20 09/01/20 11:30 11:40 11:45 Temperature Pulse Rate 119 H 116 H 116 H Pulse Rate [ From Monitor] Respiratory 22 26 H Rate Blood Pressure 125/60 125/60 130/60 O2 Sat by Pulse 100 100 Oximetry O2 Sat by Pulse Oximetry [ Bilateral Throughout] 09/01/20 09/01/20 09/01/20 11:50 12:00 12:10 Temperature Pulse Rate 116 H 116 H 118 H Pulse Rate [ 123 H From Monitor] Respiratory 24 25 H 20 Rate Blood Pressure 130/60 113/56 130/60 O2 Sat by Pulse 100 100 100 Oximetry O2 Sat by Pulse Oximetry [ Bilateral Throughout] 09/01/20 09/01/20 09/01/20 12:12 12:15 12:20 Temperature 100.2 F H Pulse Rate 116 H 121 H Pulse Rate [ From Monitor] Respiratory 27 H Rate Blood Pressure 110/53 110/53 O2 Sat by Pulse 100 Oximetry O2 Sat by Pulse Oximetry [ Bilateral Throughout] 09/01/20 09/01/2021 12:30 12:40 12:50 Temperature Pulse Rate 125 H 119 H 117 H Pulse Rate [ From Monitor] Respiratory 28 H 26 H 23 Rate Blood Pressure 103/54 110/53 131/78 O2 Sat by Pulse 100 100 97 Oximetry O2 Sat by Pulse Oximetry [ Bilateral Throughout] 09/01/20 09/01/20 09/01/20 13:00 13:17 13:28 Temperature Pulse Rate 120 H 119 H 118 H Pulse Rate [ From Monitor] Respiratory 23 Rate Blood Pressure 141/62 152/62 127/62 O2 Sat by Pulse 100 100 Oximetry O2 Sat by Pulse Oximetry [ Bilateral Throughout] Constitutional: appears uncomfortable, other (elderly female with mildly increased respiratory effort at rest on MVS) Eyes: non-icteric ENT: oropharynx moist, other (ETT 23 cm COLLEEN) Neck: supple, no lymphadenopathy, no JVD Effort: mildly labored Ascultation: Bilateral: rhonchi (R>L base) Percussion: Bilateral: not dull Cardiovascular: regular rate and rhythm Gastrointestinal: normoactive bowel sounds Integumentary: normal Extremities: no cyanosis, pulses normal, no ischemia or petechiae Neurologic: pupils equal and round, other Psychiatric: other (unable to assess re: AMS) CBC and BMP: 08/31/20 05:45 08/31/20 05:45 ABG, PT/INR, D-dimer: ABG ABG pH 7.519 (7.320-7.450) H 09/01/20 03:13 POC ABG pCO2 35.9 mmHg (32.0-48.0) 09/01/20 03:13 POC ABG pO2 89.7 mmHg (83-108) 09/01/20 03:13 POC ABG HCO3 28.6 09/01/20 03:13 ABG O2 Saturation 97.4 (0-100) 09/01/20 03:13 PT/INR, D-dimer PT 12.8 Sec. (12.2-14.9) 08/31/20 05:45 INR 0.90 (0.87-1.13) 08/31/20 05:45 D-Dimer > 46356 ng/mlDDU (0-234) H 08/30/20 03:10 Abnormal lab findings: Abnormal Labs 08/30/20 08/30/2021 00:14 00:15 00:15 WBC RBC 2.83 L Hgb 9.8 L Hct MCV 112 H MCH 35 H RDW 19.9 H Plt Count 95 L Lymph % (Auto) Lymph # (Auto) Seg Neutrophils % Nucleated RBC % 1.0 H Seg Neutrophils # D-Dimer ABG pH 7.199 L POC ABG pCO2 49.3 H POC ABG pO2 ABG Hemoglobin 11.9 L ABG Oxyhemoglobin 93.0 L ABG Sodium ABG Potassium 6.9 H ABG Chloride ABG Glucose 158 H Carboxyhemoglobin 2.8 H Potassium 7.0 H* Chloride Carbon Dioxide 18 L BUN 68 H Creatinine 8.3 H Glucose 174 H POC Glucose Calcium Phosphorus Magnesium Ferritin AST 68 H Alkaline Phosphatase 414 H Lactate Dehydrogenase Troponin T 0.085 H Total Protein 5.6 L Albumin 3.4 L HDL Cholesterol 66 H Arterial Blood Glucose 158 H Arterial Blood Ionized Calcium 08/30/20 08/30/20 08/30/20 00:15 00:15 03:10 WBC RBC Hgb Hct MCV MCH RDW Plt Count Lymph % (Auto) Lymph # (Auto) Seg Neutrophils % Nucleated RBC % Seg Neutrophils # D-Dimer 6083.16 H > 97531 H ABG pH POC ABG pCO2 POC ABG pO2 ABG Hemoglobin ABG Oxyhemoglobin ABG Sodium ABG Potassium ABG Chloride ABG Glucose Carboxyhemoglobin Potassium Chloride Carbon Dioxide BUN Creatinine Glucose POC Glucose Calcium Phosphorus 11.50 H Magnesium 3.80 H Ferritin AST Alkaline Phosphatase Lactate Dehydrogenase Troponin T Total Protein Albumin HDL Cholesterol Arterial Blood Glucose Arterial Blood Ionized Calcium 08/30/20 08/30/20 08/30/20 03:10 03:10 04:49 WBC RBC Hgb Hct MCV MCH RDW Plt Count Lymph % (Auto) Lymph # (Auto) Seg Neutrophils % Nucleated RBC % Seg Neutrophils # D-Dimer ABG pH POC ABG pCO2 POC ABG pO2 ABG Hemoglobin 10.8 L ABG Oxyhemoglobin ABG Sodium ABG Potassium 6.7 H ABG Chloride ABG Glucose 137 H Carboxyhemoglobin Potassium Chloride Carbon Dioxide BUN Creatinine Glucose 126 H POC Glucose Calcium Phosphorus Magnesium Ferritin 830.0 H AST Alkaline Phosphatase Lactate Dehydrogenase 400 H Troponin T Total Protein Albumin HDL Cholesterol Arterial Blood Glucose 137 H Arterial Blood Ionized Calcium 4.5 L 08/30/20 08/30/20 08/30/20 07:13 15:03 15:03 WBC 17.2 H RBC 3.23 L Hgb Hct MCV 108 H MCH 34 H RDW 19.4 H Plt Count 90 L Lymph % (Auto) Lymph # (Auto) Seg Neutrophils % Nucleated RBC % Seg Neutrophils # D-Dimer ABG pH POC ABG pCO2 POC ABG pO2 ABG Hemoglobin ABG Oxyhemoglobin ABG Sodium ABG Potassium ABG Chloride ABG Glucose Carboxyhemoglobin Potassium 8.2 H* 6.5 H* D Chloride 96.7 L Carbon Dioxide 21 L BUN 52 H Creatinine 5.7 H Glucose 220 H POC Glucose Calcium Phosphorus Magnesium Ferritin AST 68 H Alkaline Phosphatase 364 H Lactate Dehydrogenase Troponin T Total Protein Albumin 3.7 L HDL Cholesterol Arterial Blood Glucose Arterial Blood Ionized Calcium 08/30/20 08/30/20 08/31/20 17:27 21:03 04:07 WBC RBC Hgb Hct MCV MCH RDW Plt Count Lymph % (Auto) Lymph # (Auto) Seg Neutrophils % Nucleated RBC % Seg Neutrophils # D-Dimer ABG pH 7.498 H POC ABG pCO2 27.9 L POC ABG pO2 126.9 H ABG Hemoglobin 10.1 L ABG Oxyhemoglobin 98.3 H ABG Sodium 134.3 L ABG Potassium 6.7 H ABG Chloride ABG Glucose 261 H Carboxyhemoglobin 0.1 L Potassium Chloride Carbon Dioxide BUN Creatinine Glucose POC Glucose 223 H 230 H Calcium Phosphorus Magnesium Ferritin AST Alkaline Phosphatase Lactate Dehydrogenase Troponin T Total Protein Albumin HDL Cholesterol Arterial Blood Glucose 261 H Arterial Blood Ionized Calcium 3.6 L 08/31/20 08/31/20 08/31/20 05:01 05:45 05:45 WBC 13.1 H RBC 2.83 L Hgb 9.6 L Hct 29.8 L MCV 105 H MCH 34 H RDW 18.9 H Plt Count 88 L Lymph % (Auto) 6.9 L Lymph # (Auto) 0.9 L Seg Neutrophils % 87.8 H Nucleated RBC % Seg Neutrophils # 11.5 H D-Dimer ABG pH POC ABG pCO2 POC ABG pO2 ABG Hemoglobin ABG Oxyhemoglobin ABG Sodium ABG Potassium ABG Chloride ABG Glucose Carboxyhemoglobin Potassium 7.1 H* Chloride 96.7 L Carbon Dioxide BUN 74 H Creatinine 7.0 H Glucose 254 H POC Glucose 256 H Calcium 7.6 L Phosphorus Magnesium Ferritin AST Alkaline Phosphatase Lactate Dehydrogenase Troponin T Total Protein Albumin HDL Cholesterol Arterial Blood Glucose Arterial Blood Ionized Calcium 08/31/20 08/31/20 09/01/20 11:38 23:31 03:13 WBC RBC Hgb Hct MCV MCH RDW Plt Count Lymph % (Auto) Lymph # (Auto) Seg Neutrophils % Nucleated RBC % Seg Neutrophils # D-Dimer ABG pH 7.519 H POC ABG pCO2 POC ABG pO2 ABG Hemoglobin 9.3 L ABG Oxyhemoglobin ABG Sodium 134.7 L ABG Potassium ABG Chloride 94.0 L ABG Glucose 441 H Carboxyhemoglobin Potassium Chloride Carbon Dioxide BUN Creatinine Glucose POC Glucose 294 H 426 H Calcium Phosphorus Magnesium Ferritin AST Alkaline Phosphatase Lactate Dehydrogenase Troponin T Total Protein Albumin HDL Cholesterol Arterial Blood Glucose 441 H Arterial Blood Ionized Calcium 3.8 L 09/01/20 09/01/20 09/01/20 05:20 10:32 11:45 WBC RBC Hgb Hct MCV MCH RDW Plt Count Lymph % (Auto) Lymph # (Auto) Seg Neutrophils % Nucleated RBC % Seg Neutrophils # D-Dimer ABG pH POC ABG pCO2 POC ABG pO2 ABG Hemoglobin ABG Oxyhemoglobin ABG Sodium ABG Potassium ABG Chloride ABG Glucose Carboxyhemoglobin Potassium Chloride Carbon Dioxide BUN Creatinine Glucose POC Glucose 422 H 227 H 203 H Calcium Phosphorus Magnesium Ferritin AST Alkaline Phosphatase Lactate Dehydrogenase Troponin T Total Protein Albumin HDL Cholesterol Arterial Blood Glucose Arterial Blood Ionized Calcium Allied health notes reviewed: nursing
[2020-09-01 14:06] LABS: Calcium 8.2 mg/dL (8.4-10.2)
--- NOTE | 2020-09-01 15:14 | Progress Note ---
Assessment and Plan Cultures: Blood cultures 08/30/2020 no growth so far Tracheal aspirate culture 08/30/2020 no growth so far A/P: 65 yo F PMH EFx ESRD on HD, multiple myeloma s/p chemo and BMT, DM2 presented after being found non-responsive. #Acute hypoxic respiratory failure: secondary to edema vs infection. Normal white count, afebrile (low temps right now). Proclacitonin likely to be falsely elevated in renal failure as it is renally excreted. Given pericardial effusion, most likely her resp failure is due to volume/hyperkalemia, however given her immunocompromised status will continue empiric antibiotics for now. #Multiple myeloma: s/p chemo and BMT. Unclear dates of these and status of remission/vaccinations. Will presume immunocompromised for now #ESRD on HD: renally dose medications #Hyperkalemia Recs: -Given potential for immunocompromise as above, will treat with meropenem for now. -I do presume her symptoms are more likely to fluid/electrolyte imabalance, as such will likely de-escalate shortly assuming infective data remains negative -No evidence of fungal cavitations on CTA. -follow up brain MRI Thank you for the consult, we will continue to follow. Ender Hale MD [facility] ([facility] O: [phone] F: [phone] Subjective Date of service: 09/01/20 Principal diagnosis: Cardiac arrest; Ac. hypoxemic resp failure; PNA; ESRD; NSTEMI; Hyperkalemia Interval history: Febrile overnight to 101.1. Cultures remain negative. Imaging personally reviewed: Chest x-ray: Stable perihilar opacities Objective - Exam Narrative Exam: Physical Exam: Constitutional: intubated, sedated Head, Ears, Nose: Normocephalic, atraumatic. External ears, nose normal Eyes: Conjunctivae/corneas clear. No icterus. No ptosis. Neck: ETT Oral: ETT Cardiovascular: S1, S2 normal. Respiratory: Good air entry, clear to auscultation bilaterally GI: Soft, non-tender; bowel sounds normal. No peritoneal signs. Musculoskeletal: No pedal edema, no cyanosis. Skin: No rash or abscess Hem/Lymphatic: No palpable cervical or supraclavicular nodes. No lymphangitis Psych: Sedated Neurological: Sedated - Constitutional Vitals: Vital Signs Temp Pulse Resp BP Pulse Ox 100 F H 118 H 23 127/62 100 09/01/20 12:46 09/01/20 13:28 09/01/20 13:00 09/01/20 13:28 09/01/20 13:28 Temperature -Last 24 Hours Temperature 100 F Temperature 100.2 F Temperature 98.2 F Temperature 101.1 F Temperature 100.9 F Temperature 100.8 F - Labs CBC & Chem 7: 08/31/20 05:45 09/01/20 13:34 Labs: Abnormal lab results 08/31/20 09/01/20 09/01/20 Range/Units 23:31 03:13 05:20 ABG pH 7.519 H (7.320-7.450) ABG Hemoglobin 9.3 L (12.0-17.5) ABG Sodium 134.7 L (136.0-145.0) mmol/L ABG Chloride 94.0 L (98-107) mmol/L ABG Glucose 441 H (65-95) mg/dL Chloride (98-107) mmol/L BUN (7-17) mg/dL Creatinine (0.6-1.2) mg/dL Glucose (65-100) mg/dL POC Glucose 426 H 422 H (70-105) mg/dL Calcium (8.4-10.2) mg/dL Arterial Blood Glucose 441 H (65-95) mg/dL Arterial Blood Ionized Calcium 3.8 L (4.6-5.3) mg/dL 09/01/20 09/01/20 09/01/20 Range/Units 10:32 11:45 13:34 ABG pH (7.320-7.450) ABG Hemoglobin (12.0-17.5) ABG Sodium (136.0-145.0) mmol/L ABG Chloride (98-107) mmol/L ABG Glucose (65-95) mg/dL Chloride 94.5 L (98-107) mmol/L BUN 29 H (7-17) mg/dL Creatinine 3.4 H D (0.6-1.2) mg/dL Glucose 241 H (65-100) mg/dL POC Glucose 227 H 203 H (70-105) mg/dL Calcium 8.2 L (8.4-10.2) mg/dL Arterial Blood Glucose (65-95) mg/dL Arterial Blood Ionized Calcium (4.6-5.3) mg/dL
[2020-09-01] MEDS: MEROPENEM/NS 500 MG/50 ML 500 MG/50 ML BAG IV SCH (15:25)
--- NOTE | 2020-09-01 15:30 | Magnetic Resonance Report ---
MRI BRAIN WITHOUT CONTRAST INDICATION / CLINICAL INFORMATION: Post Cardiac arrest. TECHNIQUE: Multiplanar, multisequence MR images of the brain were obtained. COMPARISON: Head CT on 08/30/2020. FINDINGS: BRAIN / INTRACRANIAL CONTENTS: There is diffuse restricted diffusion throughout the cerebral cortex. There is no hemorrhage, hydrocephalus, or adverse mass effect. Ventricular and cisternal size appears normal for age. CRANIOCERVICAL JUNCTION: No significant abnormality. VASCULAR FLOW-VOIDS: No significant abnormality. ORBITS: No significant abnormality of visualized orbits. SINUSES / MASTOIDS: No significant abnormality of visualized sinuses and mastoid air cells. ADDITIONAL FINDINGS: There is an extrarenal scalp hematoma in the right frontoparietal scalp. IMPRESSION: 1. Diffuse restricted diffusion in the cerebral cortex consistent with global anoxic brain injury. Signer Name: Gab Daniel MD Signed: 09/01/2020 3:25 PM Workstation Name: [id number]
--- NOTE | 2020-09-01 15:58 | Progress Note ---
<PROMISEBONNIEVivi - Last Filed: 09/01/20 20:00> Assessment and Plan Assessment and plan: This is 65-year-old female with DM, HTN, HLD, ESRD on HD MWF, multiple myeloma s/p chemotherapy and stem cell transplant and current tobacco abuse who was admitted s/p cardiac arrest with anoxic encephalopathy, hypertensive emergency, multifocal pneumonia and has a COVID-19 PUI COVID-19, ruled out S/p cardiac arrest Acute hypoxic respiratory failure Diffuse anoxic brain injury as evidenced by MRI Pericardial effusion Severe cardiomegaly Anoxic encephalopathy Hyperkalemia Hyperglycemia Leukocytosis Transaminitis Hypertension Hyperlipidemia ESRD on HD Multiple myeloma Current tobacco abuse -CCM, nephrology, cardiology, infectious disease, neurology consulted, appreciate recommendations -08/29 CXR shows moderate enlargement of cardiac silhouette, diffuse bilateral mixed chest x-ray and airspace disease -08/30 CT C-spine shows no CT evidence of acute bony abnormality the cervical spine, biapical airspace disease -08/30 CT head/brain shows no CT evidence of acute intracranial hemorrhage, mild generalized parenchymal atrophy, no evidence of midline shift or mass-effect, moderate size right frontal scalp hematoma -08/30 CTA chest shows no pulmonary embolism, mildly enlarged heart, moderate sized pericardial effusion, diffuse bilateral mixed interstitial and airspace disease with associated atelectasis. -08/30 CT abdomen/pelvis with contrast shows mild fluid-filled distended stomach, dense atherosclerotic calcification of the abdominal aorta, multiple loops of moderately prominent fecalized small bowel, moderate amount of retained stool throughout the colon which may represent possible sequela impaction and constip ation, multiple colonic diverticula, several calcified uterine fibroids, bibasilar mixed interstitial and airspace disease -08/30 bilateral lower extremity Doppler ultrasound shows no evidence of DVT in either lower extremity -08/30 CXR shows moderate bilateral lateral pulmonary opacities improvement -08/30 echocardiogram shows a small to moderate sized circumferential pericardial effusion, no tamponade, left ventricle systolic function normal, LVEF 55 to 60%, mild concentric LVH, trace MR, trace TR, no pulmonary hypertension -09/01 MRI brain showed diffuse restricted diffusion in the cerebral cortex consistent with global anoxic brain injury -08/31 EEG pending -Cardiology placed patient on IV metoprolol and IV nitroglycerin drip -BP monitoring per protocol -PRN hydralazine -Empiric antibiotics per infectious disease -08/30 tracheal aspirate pending -S/P calcium gluconate, insulin, D50 for hyperkalemia in the emergency department and repeated on 08/31 -Bowel regimen -Tube feedings, SSI, Accu-Cheks every 6, hypoglycemic protocol -Trend CBC,BMP DVT/GI prophylaxis: SCDs to bilateral lower extremities while in bed, PPI, heparin subcu Disposition: ICU The high probability of a clinically significant, sudden or life threatening deterioration of the [multi] system(s) required my full and direct attention, intervention and personal management. The aggregate critical care time was [35] minutes. This time is in addition to time spent performing reported procedures but includes the following: [x] Data Review and interpretation [x] Patient assessment and monitoring of vital signs [x] Documentation [x] Medication orders and management History Interval history: This is 65-year-old female with diabetes mellitus, hypertension, hyperlipidemia, ESRD on HD MWF via left chest permacath, multiple myeloma s/p chemotherapy and stem cell transplant with right chest port, immature right upper extremity aVF and current tobacco abuse who presented to the emergency department on 08/30 s/p cardiac arrest after being found laying in driveway, unresponsive and in asystole by EMS after being called for shortness of breath. Patient was intubated by EMS and received 3 mg epinephrine, calcium and serum bicarbonate and ROSC was eventually achieved after 10 minutes of resuscitation. Recommend emergency department revealed hyperkalemia, CXR showed moderate enlargement of cardiac silhouette, diffuse bilateral mixed interstitial and airspace disease with considerations to pulmonary edema or multifocal infectious process. Patient was admitted to the hospitalist service s/p cardiac arrest with anoxic encephalopathy, ESRD on HD, hypertensive emergency, multifocal pneumonia and a and has a COVID-19 PUI. CCM, nephrology, neurology infectious disease and cardiology were consulted. 08/30: This morning neurology was consulted, patient noted to have leukocytosis, hyperkalemia, metabolic acidosis and hyperglycemia. Patient had hyperphosphatemia, hypomagnesemia also. Patient had hemodialysis today per nephrology. COVID-19 PCR negative. Patient was in ED holding and admitted to the ICU later during the day. Patient is sedated on fentanyl and propofol. At the time my examination she was assist-control, rate of 28, tidal and 450, 60 PEEP and FiO2 of 60%. 08/31: Patient received hemodialysis however she is hyperkalemia again which was treated with dextrose, insulin and Kionex. Patient received hemodialysis again today per nephrology. Patient continues with with meropenem until blood cultures per infectious disease. MRI brain and EEG pending, lactulose discontinued (which was started due to large stool burden). We will follow up on cultures and BMP. Patient also noted to be hyperglycemic and was started on long acting insulin. Family updated at bedside by nurse ela and Dr. Garces. 09/01: Patient was noted to be hypertensive yesterday evening and today so cardiology will start the patient on a nitroglycerin drip and IV metoprolol. CCM reduced rate. Patient received hemodialysis today and scheduled for MRI brain. Patient noted to be hyperkalemic and follow-up BMP shows a potassium of 4. Patient's MRI brain showed diffuse anoxic brain injury and Dr. Garces updated the family at bedside. Hospitalist Physical - Constitutional Vitals: Temp Pulse Resp BP Pulse Ox 100 F H 107 H 21 166/66 98 09/01/20 12:46 09/01/20 15:10 09/01/20 15:10 09/01/20 15:10 09/01/20 15:10 General appearance: Present: other (Unresponsive, on the vent) - EENT Eyes: Absent: PERRL ENT: poor dentition - Neck Neck: Absent: masses or JVD, cervical LAD - Respiratory Respiratory effort: normal Respiratory: bilateral: CTA - Cardiovascular Rhythm: regular Heart Sounds: Present: S1 & S2. Absent: systolic murmur, diastolic murmur - Extremities Extremities: no ischemia, pulses intact, pulses symmetrical, normal temperature, normal color Peripheral Pulses: within normal limits - Abdominal General gastrointestinal: soft, non-tender, non-distended, normal bowel sounds - Integumentary Integumentary: Present: warm, dry - Psychiatric Psychiatric: other (Unresponsive on chronic ventilation) - Neurologic Neurologic: no moves all extremities, other (Pupils not reactive to light, no cough/gag, no response to painful stimuli) HEART Score - HEART Score Troponin: Troponin T 0.085 ng/mL (0.00-0.029) H 08/30/20 00:15 Results - Labs CBC & Chem 7: 08/31/20 05:45 09/01/20 13:34 Labs: Laboratory Last Values WBC 13.1 K/mm3 (4.5-11.0) H 08/31/20 05:45 RBC 2.83 M/mm3 (3.65-5.03) L 08/31/20 05:45 Hgb 9.6 gm/dl (10.1-14.3) L 08/31/20 05:45 Hct 29.8 % (30.3-42.9) L 08/31/20 05:45 MCV 105 fl (79-97) H 08/31/20 05:45 MCH 34 pg (28-32) H 08/31/20 05:45 MCHC 32 % (30-34) 08/31/20 05:45 RDW 18.9 % (13.2-15.2) H 08/31/20 05:45 Plt Count 88 K/mm3 (140-440) L 08/31/20 05:45 Lymph % (Auto) 6.9 % (13.4-35.0) L 08/31/20 05:45 [place] % (Auto) 4.5 % (0.0-7.3) 08/31/20 05:45 Eos % (Auto) 0.0 % (0.0-4.3) 08/31/20 05:45 Baso % (Auto) 0.8 % (0.0-1.8) 08/31/20 05:45 Lymph # (Auto) 0.9 K/mm3 (1.2-5.4) L 08/31/20 05:45 [place] # (Auto) 0.6 K/mm3 (0.0-0.8) 08/31/20 05:45 Eos # (Auto) 0.0 K/mm3 (0.0-0.4) 08/31/20 05:45 Baso # (Auto) 0.1 K/mm3 (0.0-0.1) 08/31/20 05:45 Add Manual Diff Complete 08/30/20 00:15 Total Counted 100 08/30/20 00:15 Seg Neutrophils % 87.8 % (40.0-70.0) H 08/31/20 05:45 Seg Neuts % (Manual) 57.0 % (40.0-70.0) 08/30/20 00:15 Band Neutrophils % 1.0 % 08/30/20 00:15 Lymphocytes % (Manual) 34.0 % (13.4-35.0) 08/30/20 00:15 Monocytes % (Manual) 5.0 % (0.0-7.3) 08/30/20 00:15 Eosinophils % (Manual) 3.0 % (0.0-4.3) 08/30/20 00:15 Nucleated RBC % 1.0 % (0.0-0.9) H 08/30/20 00:15 Seg Neutrophils # 11.5 K/mm3 (1.8-7.7) H 08/31/20 05:45 Seg Neutrophils # Man 5.6 K/mm3 (1.8-7.7) 08/30/20 00:15 Band Neutrophils # 0.1 K/mm3 08/30/20 00:15 Lymphocytes # (Manual) 3.3 K/mm3 (1.2-5.4) 08/30/20 00:15 Abs React Lymphs (Man) 0.0 K/mm3 08/30/20 00:15 Monocytes # (Manual) 0.5 K/mm3 (0.0-0.8) 08/30/20 00:15 Eosinophils # (Manual) 0.3 K/mm3 (0.0-0.4) 08/30/20 00:15 Basophils # (Manual) 0.0 K/mm3 (0.0-0.1) 08/30/20 00:15 Metamyelocytes # 0.0 K/mm3 08/30/20 00:15 Myelocytes # 0.0 K/mm3 08/30/20 00:15 Promyelocytes # 0.0 K/mm3 08/30/20 00:15 Blast Cells # 0.0 K/mm3 08/30/20 00:15 WBC Morphology Not Reportable 08/30/20 00:15 Hypersegmented Neuts Not Reportable 08/30/20 00:15 Hyposegmented Neuts Not Reportable 08/30/20 00:15 Hypogranular Neuts Not Reportable 08/30/20 00:15 Smudge Cells Not Reportable 08/30/20 00:15 Toxic Granulation Not Reportable 08/30/20 00:15 Toxic Vacuolation Not Reportable 08/30/20 00:15 Dohle Bodies Not Reportable 08/30/20 00:15 Pelger-Huet Anomaly Not Reportable 08/30/20 00:15 Lolita Rods Not Reportable 08/30/20 00:15 Platelet Estimate Consistent w auto 08/30/20 00:15 Clumped Platelets Not Reportable 08/30/20 00:15 Plt Clumps, EDTA Not Reportable 08/30/20 00:15 Large Platelets Not Reportable 08/30/20 00:15 Giant Platelets Not Reportable 08/30/20 00:15 Platelet Satelliting Not Reportable 08/30/20 00:15 Plt Morphology Comment Not Reportable 08/30/20 00:15 RBC Morphology Not Reportable 08/30/20 00:15 Dimorphic RBCs Not Reportable 08/30/20 00:15 Polychromasia Not Reportable 08/30/20 00:15 Hypochromasia Not Reportable 08/30/20 00:15 Poikilocytosis Not Reportable 08/30/20 00:15 Anisocytosis 1+ 08/30/20 00:15 Microcytosis Not Reportable 08/30/20 00:15 Macrocytosis Not Reportable 08/30/20 00:15 Spherocytes Not Reportable 08/30/20 00:15 Pappenheimer Bodies Not Reportable 08/30/20 00:15 Sickle Cells Not Reportable 08/30/20 00:15 Target Cells Not Reportable 08/30/20 00:15 Tear Drop Cells Not Reportable 08/30/20 00:15 Ovalocytes Not Reportable 08/30/20 00:15 Helmet Cells Not Reportable 08/30/20 00:15 Anton-Smoot Bodies Not Reportable 08/30/20 00:15 Orient Rings Not Reportable 08/30/20 00:15 [place] Cells Not Reportable 08/30/20 00:15 Bite Cells Not Reportable 08/30/20 00:15 Crenated Cell Not Reportable 08/30/20 00:15 Elliptocytes Not Reportable 08/30/20 00:15 Acanthocytes (Spur) Not Reportable 08/30/20 00:15 Rouleaux Not Reportable 08/30/20 00:15 Hemoglobin C Crystals Not Reportable 08/30/20 00:15 Schistocytes Not Reportable 08/30/20 00:15 Malaria parasites Not Reportable 08/30/20 00:15 Maurice Bodies Not Reportable 08/30/20 00:15 Hem Pathologist Commnt No 08/30/20 00:15 PT 12.8 Sec. (12.2-14.9) 08/31/20 05:45 INR 0.90 (0.87-1.13) 08/31/20 05:45 D-Dimer > 35840 ng/mlDDU (0-234) H 08/30/20 03:10 ABG pH 7.519 (7.320-7.450) H 09/01/20 03:13 POC ABG pCO2 35.9 mmHg (32.0-48.0) 09/01/20 03:13 POC ABG pO2 89.7 mmHg (83-108) 09/01/20 03:13 POC ABG HCO3 28.6 09/01/20 03:13 ABG O2 Saturation 97.4 (0-100) 09/01/20 03:13 POC ABG Base Excess 5.5 09/01/20 03:13 ABG Hemoglobin 9.3 (12.0-17.5) L 09/01/20 03:13 ABG Oxyhemoglobin 95.9 (94-98) 09/01/20 03:13 ABG Methemoglobin 0.3 (0.0-1.5) 09/01/20 03:13 ABG Sodium 134.7 mmol/L (136.0-145.0) L 09/01/20 03:13 ABG Potassium 3.7 mmol/L (3.40-4.50) 09/01/20 03:13 ABG Chloride 94.0 mmol/L (98-107) L 09/01/20 03:13 ABG Glucose 441 mg/dL (65-95) H 09/01/20 03:13 Carboxyhemoglobin 1.2 (0.5-1.5) 09/01/20 03:13 FiO2 % 30.0 09/01/20 03:13 Sodium 137 mmol/L (137-145) 09/01/20 13:34 Potassium 3.6 mmol/L (3.6-5.0) D 09/01/20 13:34 Chloride 94.5 mmol/L (98-107) L 09/01/20 13:34 Carbon Dioxide 29 mmol/L (22-30) 09/01/20 13:34 Anion Gap 17 mmol/L 09/01/20 13:34 BUN 29 mg/dL (7-17) H 09/01/20 13:34 Creatinine 3.4 mg/dL (0.6-1.2) H D 09/01/20 13:34 Estimated GFR 16 ml/min 09/01/20 13:34 BUN/Creatinine Ratio 9 % 09/01/20 13:34 Glucose 241 mg/dL (65-100) H 09/01/20 13:34 POC Glucose 203 mg/dL (70-105) H 09/01/20 11:45 Calcium 8.2 mg/dL (8.4-10.2) L 09/01/20 13:34 Phosphorus 11.50 mg/dL (2.5-4.5) H 08/30/20 00:15 Magnesium 3.80 mg/dL (1.7-2.3) H 08/30/20 00:15 Ferritin 830.0 ng/mL (10.0-200.0) H 08/30/20 03:10 Total Bilirubin 0.40 mg/dL (0.1-1.2) 08/30/20 15:03 AST 68 units/L (5-40) H 08/30/20 15:03 ALT 41 units/L (7-56) 08/30/20 15:03 Alkaline Phosphatase 364 units/L (35-129) H 08/30/20 15:03 Lactate Dehydrogenase 400 units/L (91-180) H 08/30/20 03:10 Troponin T 0.085 ng/mL (0.00-0.029) H 08/30/20 00:15 C-Reactive Protein 0.20 mg/dL (0.00-1.30) 08/30/20 03:10 Total Protein 6.4 g/dL (6.3-8.2) 08/30/20 15:03 Albumin 3.7 g/dL (3.9-5) L 08/30/20 15:03 Albumin/Globulin Ratio 1.4 % 08/30/20 15:03 Triglycerides 61 mg/dL (2-149) 08/30/20 00:15 Cholesterol 150 mg/dL (50-199) 08/30/20 00:15 LDL Cholesterol Direct 71 mg/dL (50-130) 08/30/20 00:15 HDL Cholesterol 66 mg/dL (40-59) H 08/30/20 00:15 Cholesterol/HDL Ratio 2.27 % 08/30/20 00:15 Procalcitonin 4.16 ng/mL (<0.15) 08/30/20 03:10 Arterial Blood Glucose 441 mg/dL (65-95) H 09/01/20 03:13 Arterial Blood Ionized Calcium 3.8 mg/dL (4.6-5.3) L 09/01/20 03:13 Coronavirus (PCR) Negative (Negative) 08/30/20 Unknown Hepatitis A IgM Ab Non-reactive (NonReactive) 08/30/20 07:35 Hep Bs Antigen Non-reactive (Negative) 08/30/20 07:35 Hep B Core IgM Ab Non-reactive (NonReactive) 08/30/20 07:35 Hepatitis C Antibody Non-reactive (NonReactive) 08/30/20 07:35 Microbiology: Microbiology 08/30/20 Unknown Tracheal Aspirate Sputum Culture - Final 08/30/20 18:15 Peripheral/Venous Blood Culture - Preliminary NO GROWTH AFTER 24 HOURS 08/30/20 18:15 Peripheral/Venous Blood Culture - Preliminary NO GROWTH AFTER 24 HOURS Johns/IV: Voiding Method Incontinent Active Medications - Current Medications Current Medications: Generic Name Dose Route Start Last Admin Trade Name Freq PRN Reason Stop Dose Admin Acetaminophen 650 mg 09/01/20 00:27 09/01/20 06:25 Acetaminophen 325 Mg/10.15 Ml Oral Liqd Unit Dose FEEDTUBE 650 mg Q6H PRN Administration Non Cardiac Pain or Temp>100.5 Lipase/Protease/Amylase 1 each 08/30/20 14:27 Lipase 10,500/Protease 25,000/Amylase 43,750 (Units) Dr Cap FEEDTUBE PRN PRN For Clogged Feeding Tube Dextrose 50 ml 08/30/20 19:48 Dextrose 50% In Water (25gm) 50 Ml Syringe IV Q30MIN PRN Hypoglycemia Protocol Famotidine 20 mg 09/02/20 10:00 Famotidine 20 Mg Tab PO DAILY ANIYAH Fentanyl 50 mcg 08/30/20 14:05 Fentanyl 100 Mcg/2 Ml Inj IV Q10MIN PRN ANALGESIA Heparin Sodium (Porcine) 5,000 unit 08/30/20 06:00 09/01/20 13:18 Heparin 5,000 Unit/1 Ml Vial SUB-Q 5,000 unit Q8HR ANIYAH Administration Hydralazine HCl 10 mg 08/31/20 18:14 08/31/20 21:48 Hydralazine 20 Mg/1 Ml Inj IV 10 mg Q4HR PRN Administration Hypertension Hydrophilic Ointment 1 applic 08/30/20 14:05 Lip Therapy Vaseline TP Q2HR PRN Dry Lips Sodium Chloride 100 mls @ 999 mls/hr 08/30/20 09:00 Nacl 0.9% IV ARMIDA PRN Hypotension Propofol 1,000 mg in 100 mls @ 2.381 mls/hr 08/30/20 13:00 08/31/20 16:39 Diprivan 10 Mg/Ml IV 0 mcg/kg/min TITR ANIYAH 0 mls/hr Titration Protocol 5 MCG/KG/MIN Meropenem 500 mg in 50 mls @ 50 mls/hr 08/30/20 14:00 09/01/20 15:25 Merrem/Ns 500 Mg/50 Ml IV 50 mls/hr Q24H ANIYAH Administration Fentanyl Citrate 2,000 mcg in 100 mls @ 3.969 mls/hr 08/30/20 15:00 09/01/20 15:41 Fentanyl Drip Premix IV 0 mcg/kg/hr TITR ANIYAH 0 mls/hr Titration Protocol 1 MCG/KG/HR Nitroglycerin/Dextrose 50 mg in 250 mls @ 6 mls/hr 09/01/20 11:00 Tridil Drip 50mg/250ml IV TITR ANIYAH Protocol 20 MCG/MIN Insulin Glargine 10 units 08/31/20 22:00 08/31/20 21:48 Insulin Glargine 100 Units/Ml SUB-Q 10 units QHS ANIYAH Administration Insulin Glargine 10 units 09/01/20 10:00 09/01/20 10:36 Insulin Glargine 100 Units/Ml SUB-Q 10 units DAILY ANIYAH Administration Insulin Human Regular 0 units 09/01/20 10:00 09/01/20 14:45 Insulin Regular, Human 100 Units/1 Ml SUB-Q 4 units Q4HR ANIYAH Administration Protocol Magnesium Hydroxide 30 ml 08/30/20 04:41 Magnesium Hydroxide (Mom) Oral Liqd Udc PO Q4H PRN Constipation Metoprolol Tartrate 5 mg 09/01/20 12:00 09/01/20 13:17 Metoprolol Tartrate 5 Mg/5 Ml Inj IV 5 mg Q6HR ANIYAH Administration Multi-Ingred Cream/Lotion/Oil/Oint 1 applic 08/30/20 14:05 08/31/20 01:17 Mineral Oil/Petrolatum, White Ophth Oint 3.5 Gm OU 1 applic Q4HR PRN Administration Dry Eye(s) Ondansetron HCl 4 mg 08/30/20 04:41 Ondansetron 4 Mg/2 Ml Inj IV Q8H PRN Nausea And Vomiting Senna/Docusate Sodium 1 tab 08/30/20 22:00 09/01/20 09:10 Sennosides/Docusate Sodium 8.6/50 Mg Tab FEEDTUBE Not Given BID ANIYAH Simple Syrup 15 ml 08/30/20 14:27 Simple Syrup 15 Ml FEEDTUBE PRN PRN Hypoglycemia Simple Syrup 30 ml 08/30/20 14:27 Simple Syrup 15 Ml FEEDTUBE PRN PRN Hypoglycemia Sodium Bicarbonate 325 mg 08/30/20 14:27 Sodium Bicarbonate 325 Mg Tab FEEDTUBE PRN PRN For Clogged Feeding Tube Sodium Chloride 10 ml 08/30/20 10:00 09/01/20 09:02 Sodium Chloride 0.9% 10 Ml Flush Syringe IV Not Given BID ANIYAH Sodium Chloride 10 ml 08/30/20 04:41 Sodium Chloride 0.9% 10 Ml Flush Syringe IV PRN PRN LINE FLUSH Nutrition/Malnutrition Assess - Dietary Evaluation Nutrition/Malnutrition Findings: Nutrition Notes Start: 08/30/20 07:40 Freq: Status: Active Protocol: Document 09/01/20 12:30 (Rec: 09/01/20 12:35 [email or web address]) Nutrition Notes Initial or Follow up Reassessment Current Diagnosis CKD (stage V CKD),Diabetes, Hypertension Other Pertinent Diagnosis pneu, cardiac arrest, on HD, COVID PUI Current Diet Nepro 1.8 at 35 ml/hr Labs/Tests No new labs Pertinent Medications Reviewed Height 5 ft 3 in Weight 66.3 kg [place] Body Weight (kg) 52.27 BMI 25.9 Weight change and time frame Wt change noted, pt wt seems to fluctuate frequently ( highest wt 79kg, lowest wt 64kg) Weight Status Overweight Subjective/Other Information FU for TF start and tolerance. Per RN, pt tolerating TF at goal. Stool softener stopped due to liquid BM. Pt has abrasion on scarum. Trauma Absent Minimum of two criteria No physical signs of malnutrition #1 Nutrition Diagnosis Inadequate oral intake Diagnosis Progress(for reassessment Continues documentation) Is patient on ventilator? Yes Is Patient Ambulatory and/or Out of Bed No REE-([facility]-confined to bed) 1412.088 Calculation Used for Recommendations [facility] Additional Notes Protein: (1.2-2g/kg) 80-133g Fluid: 1 ml/kcal or per MD Nutrition Intervention Change Diet Order: Continue Nutrition Support: Nepro 1.8 at 35 ml/hr Flush 150 ml q4h or per MD Kcal 1,512 Protein (gm) 68 Carbohydrates (gm) 135 Fat (gm) 81 Fluid (mL) 611 Goal #1 Meet at least 75% of protein and energy needs via TF Anticipated Discharge Needs: Unable to determine at this time Follow-Up By: 09/03/20 Additional Comments FU for TF tolerance, wt <CAIT GARCES - Last Filed: 09/02/20 16:48> Assessment and Plan Assessment and plan: Patient seen and examined, agree with assessment and plan as outlined by nurse practitioner. MRI shows patient with anoxic brain injury. Informed the family at the bedside, neurology will also speak with the family pertaining to the patient's prognosis. Prognosis is extremely poor, recommend hospice for the patient. Hospitalist Physical - Constitutional Vitals: Temp Pulse Resp BP Pulse Ox 99.7 F H 106 H 24 172/71 97 09/02/20 16:00 09/02/20 15:25 09/02/20 15:00 09/02/20 15:25 09/02/20 15:25 HEART Score - HEART Score Troponin: Troponin T 0.085 ng/mL (0.00-0.029) H 08/30/20 00:15 Results - Labs CBC & Chem 7: 08/31/20 05:45 09/02/20 07:12 Labs: Laboratory Last Values WBC 13.1 K/mm3 (4.5-11.0) H 08/31/20 05:45 RBC 2.83 M/mm3 (3.65-5.03) L 08/31/20 05:45 Hgb 9.6 gm/dl (10.1-14.3) L 08/31/20 05:45 Hct 29.8 % (30.3-42.9) L 08/31/20 05:45 MCV 105 fl (79-97) H 08/31/20 05:45 MCH 34 pg (28-32) H 08/31/20 05:45 MCHC 32 % (30-34) 08/31/20 05:45 RDW 18.9 % (13.2-15.2) H 08/31/20 05:45 Plt Count 88 K/mm3 (140-440) L 08/31/20 05:45 Lymph % (Auto) 6.9 % (13.4-35.0) L 08/31/20 05:45 [place] % (Auto) 4.5 % (0.0-7.3) 08/31/20 05:45 Eos % (Auto) 0.0 % (0.0-4.3) 08/31/20 05:45 Baso % (Auto) 0.8 % (0.0-1.8) 08/31/20 05:45 Lymph # (Auto) 0.9 K/mm3 (1.2-5.4) L 08/31/20 05:45 [place] # (Auto) 0.6 K/mm3 (0.0-0.8) 08/31/20 05:45 Eos # (Auto) 0.0 K/mm3 (0.0-0.4) 08/31/20 05:45 Baso # (Auto) 0.1 K/mm3 (0.0-0.1) 08/31/20 05:45 Add Manual Diff Complete 08/30/20 00:15 Total Counted 100 08/30/20 00:15 Seg Neutrophils % 87.8 % (40.0-70.0) H 08/31/20 05:45 Seg Neuts % (Manual) 57.0 % (40.0-70.0) 08/30/20 00:15 Band Neutrophils % 1.0 % 08/30/20 00:15 Lymphocytes % (Manual) 34.0 % (13.4-35.0) 08/30/20 00:15 Monocytes % (Manual) 5.0 % (0.0-7.3) 08/30/20 00:15 Eosinophils % (Manual) 3.0 % (0.0-4.3) 08/30/20 00:15 Nucleated RBC % 1.0 % (0.0-0.9) H 08/30/20 00:15 Seg Neutrophils # 11.5 K/mm3 (1.8-7.7) H 08/31/20 05:45 Seg Neutrophils # Man 5.6 K/mm3 (1.8-7.7) 08/30/20 00:15 Band Neutrophils # 0.1 K/mm3 08/30/20 00:15 Lymphocytes # (Manual) 3.3 K/mm3 (1.2-5.4) 08/30/20 00:15 Abs React Lymphs (Man) 0.0 K/mm3 08/30/20 00:15 Monocytes # (Manual) 0.5 K/mm3 (0.0-0.8) 08/30/20 00:15 Eosinophils # (Manual) 0.3 K/mm3 (0.0-0.4) 08/30/20 00:15 Basophils # (Manual) 0.0 K/mm3 (0.0-0.1) 08/30/20 00:15 Metamyelocytes # 0.0 K/mm3 08/30/20 00:15 Myelocytes # 0.0 K/mm3 08/30/20 00:15 Promyelocytes # 0.0 K/mm3 08/30/20 00:15 Blast Cells # 0.0 K/mm3 08/30/20 00:15 WBC Morphology Not Reportable 08/30/20 00:15 Hypersegmented Neuts Not Reportable 08/30/20 00:15 Hyposegmented Neuts Not Reportable 08/30/20 00:15 Hypogranular Neuts Not Reportable 08/30/20 00:15 Smudge Cells Not Reportable 08/30/20 00:15 Toxic Granulation Not Reportable 08/30/20 00:15 Toxic Vacuolation Not Reportable 08/30/20 00:15 Dohle Bodies Not Reportable 08/30/20 00:15 Pelger-Huet Anomaly Not Reportable 08/30/20 00:15 Lolita Rods Not Reportable 08/30/20 00:15 Platelet Estimate Consistent w auto 08/30/20 00:15 Clumped Platelets Not Reportable 08/30/20 00:15 Plt Clumps, EDTA Not Reportable 08/30/20 00:15 Large Platelets Not Reportable 08/30/20 00:15 Giant Platelets Not Reportable 08/30/20 00:15 Platelet Satelliting Not Reportable 08/30/20 00:15 Plt Morphology Comment Not Reportable 08/30/20 00:15 RBC Morphology Not Reportable 08/30/20 00:15 Dimorphic RBCs Not Reportable 08/30/20 00:15 Polychromasia Not Reportable 08/30/20 00:15 Hypochromasia Not Reportable 08/30/20 00:15 Poikilocytosis Not Reportable 08/30/20 00:15 Anisocytosis 1+ 08/30/20 00:15 Microcytosis Not Reportable 08/30/20 00:15 Macrocytosis Not Reportable 08/30/20 00:15 Spherocytes Not Reportable 08/30/20 00:15 Pappenheimer Bodies Not Reportable 08/30/20 00:15 Sickle Cells Not Reportable 08/30/20 00:15 Target Cells Not Reportable 08/30/20 00:15 Tear Drop Cells Not Reportable 08/30/20 00:15 Ovalocytes Not Reportable 08/30/20 00:15 Helmet Cells Not Reportable 08/30/20 00:15 Anton-Smoot Bodies Not Reportable 08/30/20 00:15 [place] Rings Not Reportable 08/30/20 00:15 Jigar Cells Not Reportable 08/30/20 00:15 Bite Cells Not Reportable 08/30/20 00:15 Crenated Cell Not Reportable 08/30/20 00:15 Elliptocytes Not Reportable 08/30/20 00:15 Acanthocytes (Spur) Not Reportable 08/30/20 00:15 Rouleaux Not Reportable 08/30/20 00:15 Hemoglobin C Crystals Not Reportable 08/30/20 00:15 Schistocytes Not Reportable 08/30/20 00:15 Malaria parasites Not Reportable 08/30/20 00:15 Maurice Bodies Not Reportable 08/30/20 00:15 Hem Pathologist Commnt No 08/30/20 00:15 PT 12.8 Sec. (12.2-14.9) 08/31/20 05:45 INR 0.90 (0.87-1.13) 08/31/20 05:45 D-Dimer > 78445 ng/mlDDU (0-234) H 08/30/20 03:10 ABG pH 7.506 pH Units (7.350-7.450) H 09/02/20 03:40 POC ABG pCO2 35.9 mmHg (32.0-48.0) 09/01/20 03:13 ABG pCO2 38.0 mm Hg 09/02/20 03:40 POC ABG pO2 89.7 mmHg (83-108) 09/01/20 03:13 ABG pO2 83.1 mm Hg (80.0-90.0) 09/02/20 03:40 POC ABG HCO3 28.6 09/01/20 03:13 ABG HCO3 29.4 mmol/L (20.0-26.0) H 09/02/20 03:40 ABG O2 Saturation 97.2 % (95.0-99.0) 09/02/20 03:40 ABG O2 Content 11.2 (0.0-44) 09/02/20 03:40 POC ABG Base Excess 5.5 09/01/20 03:13 ABG Base Excess 5.9 mmol/L (-2.0-3.0) H 09/02/20 03:40 ABG Hemoglobin 8.3 gm/dl (12.0-16.0) L 09/02/20 03:40 ABG Oxyhemoglobin 95.9 (94-98) 09/01/20 03:13 ABG Carboxyhemoglobin 1.9 % (0.0-5.0) 09/02/20 03:40 ABG Methemoglobin 0.5 % (0.0-1.5) 09/02/20 03:40 ABG Sodium 134.7 mmol/L (136.0-145.0) L 09/01/20 03:13 ABG Potassium 3.7 mmol/L (3.40-4.50) 09/01/20 03:13 ABG Chloride 94.0 mmol/L (98-107) L 09/01/20 03:13 ABG Glucose 441 mg/dL (65-95) H 09/01/20 03:13 Oxyhemoglobin 94.8 % (95.0-99.0) L 09/02/20 03:40 Carboxyhemoglobin 1.2 (0.5-1.5) 09/01/20 03:13 FiO2 30 % 09/02/20 03:40 FiO2 % 30.0 09/01/20 03:13 Sodium 136 mmol/L (137-145) L 09/02/20 07:12 Potassium 4.0 mmol/L (3.6-5.0) 09/02/20 07:12 Chloride 91.6 mmol/L (98-107) L 09/02/20 07:12 Carbon Dioxide 29 mmol/L (22-30) 09/02/20 07:12 Anion Gap 19 mmol/L 09/02/20 07:12 BUN 52 mg/dL (7-17) H 09/02/20 07:12 Creatinine 5.5 mg/dL (0.6-1.2) H D 09/02/20 07:12 Estimated GFR 9 ml/min 09/02/20 07:12 BUN/Creatinine Ratio 9 % 09/02/20 07:12 Glucose 176 mg/dL (65-100) H 09/02/20 07:12 POC Glucose 252 mg/dL (70-105) H 09/02/20 13:03 Calcium 7.7 mg/dL (8.4-10.2) L 09/02/20 07:12 Phosphorus 11.50 mg/dL (2.5-4.5) H 08/30/20 00:15 Magnesium 3.80 mg/dL (1.7-2.3) H 08/30/20 00:15 Ferritin 830.0 ng/mL (10.0-200.0) H 08/30/20 03:10 Total Bilirubin 0.40 mg/dL (0.1-1.2) 08/30/20 15:03 AST 68 units/L (5-40) H 08/30/20 15:03 ALT 41 units/L (7-56) 08/30/20 15:03 Alkaline Phosphatase 364 units/L (35-129) H 08/30/20 15:03 Lactate Dehydrogenase 400 units/L (91-180) H 08/30/20 03:10 Troponin T 0.085 ng/mL (0.00-0.029) H 08/30/20 00:15 C-Reactive Protein 0.20 mg/dL (0.00-1.30) 08/30/20 03:10 Total Protein 6.4 g/dL (6.3-8.2) 08/30/20 15:03 Albumin 3.7 g/dL (3.9-5) L 08/30/20 15:03 Albumin/Globulin Ratio 1.4 % 08/30/20 15:03 Triglycerides 61 mg/dL (2-149) 08/30/20 00:15 Cholesterol 150 mg/dL (50-199) 08/30/20 00:15 LDL Cholesterol Direct 71 mg/dL (50-130) 08/30/20 00:15 HDL Cholesterol 66 mg/dL (40-59) H 08/30/20 00:15 Cholesterol/HDL Ratio 2.27 % 08/30/20 00:15 Procalcitonin 4.16 ng/mL (<0.15) 08/30/20 03:10 Arterial Blood Glucose 441 mg/dL (65-95) H 09/01/20 03:13 Arterial Blood Ionized Calcium 3.8 mg/dL (4.6-5.3) L 09/01/20 03:13 Coronavirus (PCR) Negative (Negative) 08/30/20 Unknown Hepatitis A IgM Ab Non-reactive (NonReactive) 08/30/20 07:35 Hep Bs Antigen Non-reactive (Negative) 08/30/20 07:35 Hep B Core IgM Ab Non-reactive (NonReactive) 08/30/20 07:35 Hepatitis C Antibody Non-reactive (NonReactive) 08/30/20 07:35 Microbiology: Microbiology 08/30/20 18:15 Peripheral/Venous Blood Culture - Preliminary NO GROWTH AFTER 48 HOURS 08/30/20 18:15 Peripheral/Venous Blood Culture - Preliminary NO GROWTH AFTER 48 HOURS Johns/IV: Voiding Method Incontinent Active Medications - Current Medications Current Medications: Generic Name Dose Route Start Last Admin Trade Name Freq PRN Reason Stop Dose Admin Acetaminophen 650 mg 09/01/20 00:27 09/02/20 09:47 Acetaminophen 325 Mg/10.15 Ml Oral Liqd Unit Dose FEEDTUBE 650 mg Q6H PRN Administration Non Cardiac Pain or Temp>100.5 Lipase/Protease/Amylase 1 each 08/30/20 14:27 Lipase 10,500/Protease 25,000/Amylase 43,750 (Units) Dr Duran FEEDTUBE PRN PRN For Clogged Feeding Tube Dextrose 50 ml 08/30/20 19:48 Dextrose 50% In Water (25gm) 50 Ml Syringe IV Q30MIN PRN Hypoglycemia Protocol Famotidine 20 mg 09/02/20 10:00 09/02/20 09:31 Famotidine 20 Mg Tab PO 20 mg DAILY ANIYAH Administration Fentanyl 50 mcg 08/30/20 14:05 Fentanyl 100 Mcg/2 Ml Inj IV Q10MIN PRN ANALGESIA Heparin Sodium (Porcine) 5,000 unit 08/30/20 06:00 09/02/20 13:26 Heparin 5,000 Unit/1 Ml Vial SUB-Q 5,000 unit Q8HR ANIYAH Administration Hydralazine HCl 10 mg 08/31/20 18:14 08/31/20 21:48 Hydralazine 20 Mg/1 Ml Inj IV 10 mg Q4HR PRN Administration Hypertension Hydrophilic Ointment 1 applic 08/30/20 14:05 Lip Therapy Vaseline TP Q2HR PRN Dry Lips Sodium Chloride 100 mls @ 999 mls/hr 08/30/20 09:00 Nacl 0.9% IV ARMIDA PRN Hypotension Propofol 1,000 mg in 100 mls @ 2.381 mls/hr 08/30/20 13:00 08/31/20 16:39 Diprivan 10 Mg/Ml IV 0 mcg/kg/min TITR ANIYAH 0 mls/hr Titration Protocol 5 MCG/KG/MIN Meropenem 500 mg in 50 mls @ 50 mls/hr 08/30/20 14:00 09/02/20 13:43 Merrem/Ns 500 Mg/50 Ml IV 50 mls/hr Q24H ANIYAH Administration Fentanyl Citrate 2,000 mcg in 100 mls @ 3.969 mls/hr 08/30/20 15:00 09/01/20 15:41 Fentanyl Drip Premix IV 0 mcg/kg/hr TITR ANIYAH 0 mls/hr Titration Protocol 1 MCG/KG/HR Nitroglycerin/Dextrose 50 mg in 250 mls @ 6 mls/hr 09/01/20 11:00 09/02/20 13:42 Tridil Drip 50mg/250ml IV 30 mcg/min TITR ANIYAH 9 mls/hr Administration Protocol 20 MCG/MIN Insulin Glargine 25 units 09/03/20 10:00 Insulin Glargine 100 Units/Ml SUB-Q DAILY ANIYAH Insulin Human Regular 0 units 09/01/20 10:00 09/02/20 13:26 Insulin Regular, Human 100 Units/1 Ml SUB-Q 6 units Q4HR ANIYAH Administration Protocol Magnesium Hydroxide 30 ml 08/30/20 04:41 Magnesium Hydroxide (Mom) Oral Liqd Udc PO Q4H PRN Constipation Metoprolol Tartrate 5 mg 09/02/20 11:00 09/02/20 13:27 Metoprolol Tartrate 5 Mg/5 Ml Inj IV 5 mg Q4HR ANIYAH Administration Multi-Ingred Cream/Lotion/Oil/Oint 1 applic 08/30/20 14:05 08/31/20 01:17 Mineral Oil/Petrolatum, White Ophth Oint 3.5 Gm OU 1 applic Q4HR PRN Administration Dry Eye(s) Ondansetron HCl 4 mg 08/30/20 04:41 Ondansetron 4 Mg/2 Ml Inj IV Q8H PRN Nausea And Vomiting Senna/Docusate Sodium 1 tab 08/30/20 22:00 09/02/20 09:32 Sennosides/Docusate Sodium 8.6/50 Mg Tab FEEDTUBE Not Given BID ANIYAH Simple Syrup 15 ml 08/30/20 14:27 Simple Syrup 15 Ml FEEDTUBE PRN PRN Hypoglycemia Simple Syrup 30 ml 08/30/20 14:27 Simple Syrup 15 Ml FEEDTUBE PRN PRN Hypoglycemia Sodium Bicarbonate 325 mg 08/30/20 14:27 Sodium Bicarbonate 325 Mg Tab FEEDTUBE PRN PRN For Clogged Feeding Tube Sodium Chloride 10 ml 08/30/20 10:00 09/02/20 10:52 Sodium Chloride 0.9% 10 Ml Flush Syringe IV 10 ml BID ANIYAH Administration Sodium Chloride 10 ml 08/30/20 04:41 Sodium Chloride 0.9% 10 Ml Flush Syringe IV PRN PRN LINE FLUSH Nutrition/Malnutrition Assess - Dietary Evaluation Nutrition/Malnutrition Findings: Nutrition Notes Start: 08/30/20 07:40 Freq: Status: Active Protocol: Document 09/01/20 12:30 MK (Rec: 09/01/20 12:35 [id number]) Nutrition Notes Initial or Follow up Reassessment Current Diagnosis CKD (stage V CKD),Diabetes, Hypertension Other Pertinent Diagnosis pneu, cardiac arrest, on HD, COVID PUI Current Diet Nepro 1.8 at 35 ml/hr Labs/Tests No new labs Pertinent Medications Reviewed Height 5 ft 3 in Weight 66.3 kg [place] Body Weight (kg) 52.27 BMI 25.9 Weight change and time frame Wt change noted, pt wt seems to fluctuate frequently ( highest wt 79kg, lowest wt 64kg) Weight Status Overweight Subjective/Other Information FU for TF start and tolerance. Per RN, pt tolerating TF at goal. Stool softener stopped due to liquid BM. Pt has abrasion on scarum. Trauma Absent Minimum of two criteria No physical signs of malnutrition #1 Nutrition Diagnosis Inadequate oral intake Diagnosis Progress(for reassessment Continues documentation) Is patient on ventilator? Yes Is Patient Ambulatory and/or Out of Bed No REE-([facility]-confined to bed) [phone] Calculation Used for Recommendations [facility] Additional Notes Protein: (1.2-2g/kg) 80-133g Fluid: 1 ml/kcal or per MD Nutrition Intervention Change Diet Order: Continue Nutrition Support: Nepro 1.8 at 35 ml/hr Flush 150 ml q4h or per MD Kcal 1,512 Protein (gm) 68 Carbohydrates (gm) 135 Fat (gm) 81 Fluid (mL) 611 Goal #1 Meet at least 75% of protein and energy needs via TF Anticipated Discharge Needs: Unable to determine at this time Follow-Up By: 09/03/20 Additional Comments FU for TF tolerance, wt
[2020-09-01] MEDS: NITROGLYCERIN DRIP 50 MG/250 ML BOTTLE IV SCH (16:37)
[2020-09-02] MEDS: METOPROLOL TARTRATE 5 MG/5 ML INJ IV SCH ×6 (00:38→21:55)
[2020-09-02] MEDS: INSULIN REGULAR, HUMAN 100 UNITS/1 ML SUB-Q SCH ×6 (03:15→21:59)
[2020-09-02 04:06] LABS: ABG Base Excess 5.9 mmol/L (-2.0-3.0); ABG HCO3 29.4 mmol/L (20.0-26.0); ABG Methemoglobin 0.5 % (0.0-1.5); ABG Oxygen Saturation 97.2 % (95.0-99.0); ABG PH 7.506 pH Units (7.350-7.450); ABG PO2 83.1 mm Hg (80.0-90.0)
--- NOTE | 2020-09-02 06:03 | XRay Report ---
CHEST 1 VIEW, 09/02/2020 4:00 AM CLINICAL INFORMATION/INDICATION: Respiratory failure COMPARISON: Chest radiograph, 09/01/2020 at 2:33 AM FINDINGS: SUPPORT DEVICES: Support tubes and lines project in stable position. HEART: There is stable enlargement of the cardiac silhouette. LUNGS/PLEURA: Faint bilateral interstitial opacities have improved since the previous study. No pneum othorax is visualized. ADDITIONAL FINDINGS: No additional acute findings. IMPRESSION: 1. Faint interstitial opacities suggesting venous congestion. 2. Stable enlargement of the cardiac silhouette. Signer Name: Loree Loera MD Signed: 09/02/2020 5:58 AM Workstation Name: [id number]
[2020-09-02] MEDS: HEPARIN 5,000 UNIT/1 ML VIAL SUB-Q SCH ×3 (06:49→21:57)
[2020-09-02 07:41] LABS: Calcium 7.7 mg/dL (8.4-10.2)
--- NOTE | 2020-09-02 08:58 | Progress Note ---
Assessment and Plan - Patient Problems (1) Hyperkalemia Current Visit: Yes Status: Acute Plan to address problem: Emergent dialysis was done for hyperkalemia on presentation. Potassium was still high yesterday and so patient was dialyzed again. Potassium is at goal (2) Cardiac arrest Current Visit: Yes Status: Acute Plan to address problem: Etiology uncertain. Cardiology evaluating patient. (3) End-stage renal disease on hemodialysis Current Visit: Yes Status: Acute Plan to address problem: Hemodialysis was done yesterday for solute clearance due to hyperkalemia. Now back on regular schedule today. Another 2 L ultrafiltration on dialysis today. Follow-up potassium (4) Hypertensive urgency Current Visit: Yes Status: Acute Plan to address problem: Blood pressure was elevated on presentation but has improved. Follow-up blood pressure (5) Bilateral pulmonary infiltrates on chest x-ray Current Visit: Yes Status: Acute Plan to address problem: Probably secondary to pulmonary edema. Possibility of multifocal pneumonia being entertained. Repeat chest x-ray still showed bilateral discharge infiltrates. Continue antibiotics -meropenem per infectious disease. Follow-up cultures Subjective Date of service: 09/02/20 Principal diagnosis: Cardiac arrest; Ac. hypoxemic resp failure; PNA; ESRD; NSTEMI; Hyperkalemia Interval history: Patient seen lying in bed in the ICU. Condition is about the same. She is not on vasopressors. She is on fentanyl and Diprivan infusions. Objective - Exam Narrative Exam: Middle-aged -[place] female lying in bed in ICU intubated on ventilator on Diprivan and fentanyl infusions HEENT: NCAT, moving her eyes nonpurposefully, Neck: Supple, no venous distention CVS: S1S2 RRR with no murmur, rub or gallop Chest: Clear to auscultation Abdomen: Protuberant, soft to firm, nontender, no organomegaly, bowel sounds are present Extremities: No edema Genitourinary deferred Skin warm and dry no rash Neuro: Eyes open, moving her eyes nonpurposefully, not following commands - Vital Signs Vital signs: Vital Signs - 12hr 09/01/20 09/01/20 09/01/20 21:00 21:16 21:30 Temperature Pulse Rate 104 H 104 H 102 H Pulse Rate [ From Monitor] Respiratory Rate Blood Pressure 178/72 199/65 174/72 O2 Sat by Pulse 98 96 99 Oximetry 09/01/20 09/01/20 09/01/20 21:45 22:00 22:16 Temperature Pulse Rate 103 H 106 H 107 H Pulse Rate [ From Monitor] Respiratory 18 18 23 Rate Blood Pressure 184/71 181/76 194/59 O2 Sat by Pulse 99 96 95 Oximetry 09/01/20 09/01/20 09/01/20 22:30 22:46 23:00 Temperature Pulse Rate 106 H 111 H 109 H Pulse Rate [ From Monitor] Respiratory 22 24 25 H Rate Blood Pressure 173/72 173/72 176/59 O2 Sat by Pulse 94 93 94 Oximetry 09/01/20 09/01/20 09/01/20 23:15 23:30 23:46 Temperature Pulse Rate 108 H 105 H 110 H Pulse Rate [ From Monitor] Respiratory 22 22 16 Rate Blood Pressure 177/72 181/74 201/70 O2 Sat by Pulse 95 97 99 Oximetry 09/01/20 09/02/20 09/02/20 23:52 00:00 00:08 Temperature 98.9 F Pulse Rate 109 H 107 H 113 H Pulse Rate [ 112 H From Monitor] Respiratory 25 H 28 H Rate Blood Pressure 181/74 178/65 178/65 O2 Sat by Pulse 96 96 96 Oximetry 09/02/20 09/02/20 09/02/20 00:16 00:30 00:38 Temperature Pulse Rate 111 H 115 H 112 H Pulse Rate [ From Monitor] Respiratory 27 H 25 H Rate Blood Pressure 166/71 166/73 166/73 O2 Sat by Pulse 97 95 Oximetry 09/02/20 09/02/20 09/02/20 00:45 01:00 01:15 Temperature Pulse Rate 99 H 104 H 103 H Pulse Rate [ From Monitor] Respiratory 24 26 H 24 Rate Blood Pressure 152/69 137/72 134/66 O2 Sat by Pulse 93 94 93 Oximetry 09/02/20 09/02/20 09/02/20 01:30 01:45 02:00 Temperature Pulse Rate 105 H 110 H 108 H Pulse Rate [ From Monitor] Respiratory 29 H 28 H 26 H Rate Blood Pressure 137/66 144/60 144/60 O2 Sat by Pulse 93 91 90 Oximetry 09/02/20 09/02/20 09/02/20 02:15 02:30 02:45 Temperature Pulse Rate 112 H 113 H 112 H Pulse Rate [ From Monitor] Respiratory 26 H 27 H 25 H Rate Blood Pressure 144/54 136/70 146/65 O2 Sat by Pulse 90 88 84 Oximetry 09/02/20 09/02/20 09/02/20 03:00 03:15 03:30 Temperature Pulse Rate 115 H 113 H 112 H Pulse Rate [ From Monitor] Respiratory 33 H 26 H 25 H Rate Blood Pressure 154/65 146/72 162/30 O2 Sat by Pulse 85 93 98 Oximetry 09/02/20 09/02/20 09/02/20 03:46 03:47 03:54 Temperature 99.6 F Pulse Rate 113 H 115 H Pulse Rate [ From Monitor] Respiratory 25 H Rate Blood Pressure 160/72 160/72 O2 Sat by Pulse 94 95 Oximetry 09/02/20 09/02/20 09/02/20 04:00 04:15 04:30 Temperature Pulse Rate 113 H 124 H 118 H Pulse Rate [ 114 H From Monitor] Respiratory 24 25 H 28 H Rate Blood Pressure 138/69 161/62 158/61 O2 Sat by Pulse 95 94 94 Oximetry 09/02/20 09/02/20 09/02/20 04:46 05:00 05:16 Temperature Pulse Rate 113 H 116 H 116 H Pulse Rate [ From Monitor] Respiratory 24 26 H 26 H Rate Blood Pressure 147/51 139/55 155/59 O2 Sat by Pulse 91 93 94 Oximetry 09/02/20 09/02/20 09/02/20 05:30 05:45 06:00 Temperature Pulse Rate 124 H 124 H 123 H Pulse Rate [ From Monitor] Respiratory 25 H 22 22 Rate Blood Pressure 127/64 136/63 135/53 O2 Sat by Pulse 94 94 94 Oximetry 09/02/20 09/02/20 09/02/20 06:15 06:30 06:46 Temperature Pulse Rate 120 H 116 H 118 H Pulse Rate [ From Monitor] Respiratory 23 24 23 Rate Blood Pressure 147/55 130/64 122/80 O2 Sat by Pulse 94 89 94 Oximetry 09/02/20 09/02/20 09/02/20 06:48 07:00 07:16 Temperature 101.5 F H Pulse Rate 115 H 103 H 105 H Pulse Rate [ From Monitor] Respiratory 19 21 Rate Blood Pressure 122/80 128/56 124/48 O2 Sat by Pulse 94 94 Oximetry 09/02/20 09/02/20 09/02/20 07:26 07:30 07:45 Temperature Pulse Rate 105 H 106 H 106 H Pulse Rate [ From Monitor] Respiratory 21 25 H Rate Blood Pressure 124/48 131/56 136/66 O2 Sat by Pulse 96 Oximetry 09/02/20 09/02/20 08:00 08:15 Temperature Pulse Rate 107 H 107 H Pulse Rate [ 104 H From Monitor] Respiratory 20 33 H Rate Blood Pressure 131/64 144/68 O2 Sat by Pulse 99 98 Oximetry - Lab 08/31/20 05:45 09/02/20 07:12 Most recent lab results ABG pH 7.506 pH Units (7.350-7.450) H 09/02/20 03:40 ABG pCO2 38.0 mm Hg 09/02/20 03:40 ABG pO2 83.1 mm Hg (80.0-90.0) 09/02/20 03:40 ABG HCO3 29.4 mmol/L (20.0-26.0) H 09/02/20 03:40 ABG O2 Saturation 97.2 % (95.0-99.0) 09/02/20 03:40 Calcium 7.7 mg/dL (8.4-10.2) L 09/02/20 07:12 Phosphorus 11.50 mg/dL (2.5-4.5) H 08/30/20 00:15 Magnesium 3.80 mg/dL (1.7-2.3) H 08/30/20 00:15 Medications & Allergies - Medications Allergies/Adverse Reactions: Allergies No Known Allergies Allergy (Verified 08/30/20 22:43) Home Medications: Home Medications Medication Instructions Recorded Confirmed Last Taken Type Acyclovir [Zovirax Tab] 400 mg PO BID 08/30/20 08/30/20 Unknown History Amlodipine Besylate 10 mg PO DAILY 08/30/20 08/30/20 Unknown History Furosemide [Lasix] 40 mg PO DAILY 08/30/20 08/30/20 Unknown History Gabapentin [Neurontin] 600 mg PO BID 08/30/20 08/30/20 Unknown History Imdur ER 30 mg PO DAILY 08/30/20 08/30/20 Unknown History Losartan Potassium 50 mg PO BID 08/30/20 08/30/20 Unknown History Losartan/Hydrochlorothiazide 1 each PO DAILY 08/30/20 08/30/20 Unknown History [Losartan-Hctz 100-25 mg Tab] Metoprolol Tartrate 25 mg PO BID 08/30/20 08/30/20 Unknown History Mirtazapine [Remeron] 30 mg PO HS 08/30/20 08/30/20 Unknown History Sevelamer Carbonate [Renvela] 800 mg PO TIDWM 08/30/20 08/30/20 Unknown History Vit B Complx C/Folic Acid/Zinc 0.8 mg PO DAILY 08/30/20 08/30/20 Unknown History [Dialyvite 800-Zinc 15 Tab] Zolpidem Tartrate [Edluar SUBL] 5 mg PO QHS PRN 08/30/20 08/30/20 Unknown History calcitrioL 0.5 mcg PO DAILY 08/30/20 08/30/20 Unknown History Active Medications: Generic Name Dose Route Start Last Admin Trade Name Freq PRN Reason Stop Dose Admin Acetaminophen 650 mg 09/01/20 00:27 09/01/20 16:30 Acetaminophen 325 Mg/10.15 Ml Oral Liqd Unit Dose FEEDTUBE 650 mg Q6H PRN Administration Non Cardiac Pain or Temp>100.5 Lipase/Protease/Amylase 1 each 08/30/20 14:27 Lipase 10,500/Protease 25,000/Amylase 43,750 (Units) Dr Duran FEEDTUBE PRN PRN For Clogged Feeding Tube Dextrose 50 ml 08/30/20 19:48 Dextrose 50% In Water (25gm) 50 Ml Syringe IV Q30MIN PRN Hypoglycemia Protocol Famotidine 20 mg 09/02/20 10:00 Famotidine 20 Mg Tab PO DAILY ANIYAH Fentanyl 50 mcg 08/30/20 14:05 Fentanyl 100 Mcg/2 Ml Inj IV Q10MIN PRN ANALGESIA Heparin Sodium (Porcine) 5,000 unit 08/30/20 06:00 09/02/20 06:49 Heparin 5,000 Unit/1 Ml Vial SUB-Q 5,000 unit Q8HR ANIYAH Administration Hydralazine HCl 10 mg 08/31/20 18:14 08/31/20 21:48 Hydralazine 20 Mg/1 Ml Inj IV 10 mg Q4HR PRN Administration Hypertension Hydrophilic Ointment 1 applic 08/30/20 14:05 Lip Therapy Vaseline TP Q2HR PRN Dry Lips Sodium Chloride 100 mls @ 999 mls/hr 08/30/20 09:00 Nacl 0.9% IV ARMIDA PRN Hypotension Propofol 1,000 mg in 100 mls @ 2.381 mls/hr 08/30/20 13:00 08/31/20 16:39 Diprivan 10 Mg/Ml IV 0 mcg/kg/min TITR ANIYAH 0 mls/hr Titration Protocol 5 MCG/KG/MIN Meropenem 500 mg in 50 mls @ 50 mls/hr 08/30/20 14:00 09/01/20 15:25 Merrem/Ns 500 Mg/50 Ml IV 50 mls/hr Q24H ANIYAH Administration Fentanyl Citrate 2,000 mcg in 100 mls @ 3.969 mls/hr 08/30/20 15:00 09/01/20 15:41 Fentanyl Drip Premix IV 0 mcg/kg/hr TITR ANIYAH 0 mls/hr Titration Protocol 1 MCG/KG/HR Nitroglycerin/Dextrose 50 mg in 250 mls @ 6 mls/hr 09/01/20 11:00 09/02/20 07:00 Tridil Drip 50mg/250ml IV 40 mcg/min TITR ANIYAH 12 mls/hr Titration Protocol 20 MCG/MIN Insulin Glargine 10 units 08/31/20 22:00 09/01/20 21:56 Insulin Glargine 100 Units/Ml SUB-Q 10 units QHS ANIYAH Administration Insulin Glargine 10 units 09/01/20 10:00 09/01/20 10:36 Insulin Glargine 100 Units/Ml SUB-Q 10 units DAILY ANIYAH Administration Insulin Human Regular 0 units 09/01/20 10:00 09/02/20 06:49 Insulin Regular, Human 100 Units/1 Ml SUB-Q 3 units Q4HR ANIYAH Administration Protocol Magnesium Hydroxide 30 ml 08/30/20 04:41 Magnesium Hydroxide (Mom) Oral Liqd Udc PO Q4H PRN Constipation Metoprolol Tartrate 5 mg 09/01/20 12:00 09/02/20 06:48 Metoprolol Tartrate 5 Mg/5 Ml Inj IV 5 mg Q6HR ANIYAH Administration Multi-Ingred Cream/Lotion/Oil/Oint 1 applic 08/30/20 14:05 08/31/20 01:17 Mineral Oil/Petrolatum, White Ophth Oint 3.5 Gm OU 1 applic Q4HR PRN Administration Dry Eye(s) Ondansetron HCl 4 mg 08/30/20 04:41 Ondansetron 4 Mg/2 Ml Inj IV Q8H PRN Nausea And Vomiting Senna/Docusate Sodium 1 tab 08/30/20 22:00 09/01/20 21:33 Sennosides/Docusate Sodium 8.6/50 Mg Tab FEEDTUBE Not Given BID ANIYAH Simple Syrup 15 ml 08/30/20 14:27 Simple Syrup 15 Ml FEEDTUBE PRN PRN Hypoglycemia Simple Syrup 30 ml 08/30/20 14:27 Simple Syrup 15 Ml FEEDTUBE PRN PRN Hypoglycemia Sodium Bicarbonate 325 mg 08/30/20 14:27 Sodium Bicarbonate 325 Mg Tab FEEDTUBE PRN PRN For Clogged Feeding Tube Sodium Chloride 10 ml 08/30/20 10:00 09/01/20 21:57 Sodium Chloride 0.9% 10 Ml Flush Syringe IV 10 ml BID ANIYAH Administration Sodium Chloride 10 ml 08/30/20 04:41 Sodium Chloride 0.9% 10 Ml Flush Syringe IV PRN PRN LINE FLUSH
[2020-09-02] MEDS: SENNOSIDES/DOCUSATE SODIUM 8.6/50 MG TAB FEEDTUBE SCH ×3 (09:22→21:58)
[2020-09-02] MEDS: INSULIN GLARGINE 100 UNITS/ML SUB-Q SCH (09:31)
[2020-09-02] MEDS: FAMOTIDINE 20 MG TAB PO SCH (09:31)
[2020-09-02] MEDS: ACETAMINOPHEN 325 MG/10.15 ML ORAL LIQD UNIT DOSE FEEDTUBE PRN (09:47)
--- NOTE | 2020-09-02 10:32 | Progress Note ---
Assessment and Plan Assessment and Plan # Cardiac arrest -Successfully resuscitated and intubated. - Possibly related to underlying multifocal infectious pulmonary process versus pulmonary edema and or hyperkalemia. -Currently OFF Fantanyl -Intubated # Anoxic encephalopathy -Post cardiac arrest anoxia -Ct brain is noted -Brain MRI is consistent with anoxic brain injury -Off Sdation ++ Poor prognosis # End-stage renal disease on hemodialysis -Patient on dialysis on Mondays, Wednesdays and Fridays. -Last dialysis was on Sunday. -dialysed yesterday -BUn/Cr#74/7 # Hypertensive urgency -Blood pressure currently stable. -We will monitor vital signs closely. # Multifocal pneumonia -Patient commenced on empiric IV antibiotics. -We will also request COVID-19 testing. # DVT prophylaxis -Patient placed on subcutaneous heparin. # Full code status -Patient is full code. PLAN -Over all prognosis is poor - Off sedation - Dialysis will sign off Subjective Date of service: 09/02/20 Principal diagnosis: Cardiac arrest; Ac. hypoxemic resp failure; PNA; ESRD; NSTEMI; Hyperkalemia Interval history: Status is unchanged on diallysis Off sedation MRI brain is remarkable for anoxic brain injury Objective - Vital Sign Vital Signs - 12hr 09/01/20 09/01/20 09/01/20 22:30 22:46 23:00 Temperature Pulse Rate 106 H 111 H 109 H Pulse Rate [ From Monitor] Respiratory 22 24 25 H Rate Blood Pressure 173/72 173/72 176/59 O2 Sat by Pulse 94 93 94 Oximetry 09/01/20 09/01/20 09/01/20 23:15 23:30 23:46 Temperature Pulse Rate 108 H 105 H 110 H Pulse Rate [ From Monitor] Respiratory 22 22 16 Rate Blood Pressure 177/72 181/74 201/70 O2 Sat by Pulse 95 97 99 Oximetry 09/01/20 09/02/20 09/02/20 23:52 00:00 00:08 Temperature 98.9 F Pulse Rate 109 H 107 H 113 H Pulse Rate [ 112 H From Monitor] Respiratory 25 H 28 H Rate Blood Pressure 181/74 178/65 178/65 O2 Sat by Pulse 96 96 96 Oximetry 09/02/20 09/02/20 09/02/20 00:16 00:30 00:38 Temperature Pulse Rate 111 H 115 H 112 H Pulse Rate [ From Monitor] Respiratory 27 H 25 H Rate Blood Pressure 166/71 166/73 166/73 O2 Sat by Pulse 97 95 Oximetry 09/02/20 09/02/20 09/02/20 00:45 01:00 01:15 Temperature Pulse Rate 99 H 104 H 103 H Pulse Rate [ From Monitor] Respiratory 24 26 H 24 Rate Blood Pressure 152/69 137/72 134/66 O2 Sat by Pulse 93 94 93 Oximetry 09/02/20 09/02/20 09/02/20 01:30 01:45 02:00 Temperature Pulse Rate 105 H 110 H 108 H Pulse Rate [ From Monitor] Respiratory 29 H 28 H 26 H Rate Blood Pressure 137/66 144/60 144/60 O2 Sat by Pulse 93 91 90 Oximetry 09/02/20 09/02/20 09/02/20 02:15 02:30 02:45 Temperature Pulse Rate 112 H 113 H 112 H Pulse Rate [ From Monitor] Respiratory 26 H 27 H 25 H Rate Blood Pressure 144/54 136/70 146/65 O2 Sat by Pulse 90 88 84 Oximetry 09/02/20 09/02/20 09/02/20 03:00 03:15 03:30 Temperature Pulse Rate 115 H 113 H 112 H Pulse Rate [ From Monitor] Respiratory 33 H 26 H 25 H Rate Blood Pressure 154/65 146/72 162/30 O2 Sat by Pulse 85 93 98 Oximetry 09/02/20 09/02/20 09/02/20 03:46 03:47 03:54 Temperature 99.6 F Pulse Rate 113 H 115 H Pulse Rate [ From Monitor] Respiratory 25 H Rate Blood Pressure 160/72 160/72 O2 Sat by Pulse 94 95 Oximetry 09/02/20 09/02/20 09/02/20 04:00 04:15 04:30 Temperature Pulse Rate 113 H 124 H 118 H Pulse Rate [ 114 H From Monitor] Respiratory 24 25 H 28 H Rate Blood Pressure 138/69 161/62 158/61 O2 Sat by Pulse 95 94 94 Oximetry 09/02/20 09/02/20 09/02/20 04:46 05:00 05:16 Temperature Pulse Rate 113 H 116 H 116 H Pulse Rate [ From Monitor] Respiratory 24 26 H 26 H Rate Blood Pressure 147/51 139/55 155/59 O2 Sat by Pulse 91 93 94 Oximetry 09/02/20 09/02/20 09/02/20 05:30 05:45 06:00 Temperature Pulse Rate 124 H 124 H 123 H Pulse Rate [ From Monitor] Respiratory 25 H 22 22 Rate Blood Pressure 127/64 136/63 135/53 O2 Sat by Pulse 94 94 94 Oximetry 09/02/20 09/02/20 09/02/20 06:15 06:30 06:46 Temperature Pulse Rate 120 H 116 H 118 H Pulse Rate [ From Monitor] Respiratory 23 24 23 Rate Blood Pressure 147/55 130/64 122/80 O2 Sat by Pulse 94 89 94 Oximetry 09/02/20 09/02/20 09/02/20 06:48 07:00 07:16 Temperature 101.5 F H Pulse Rate 115 H 103 H 105 H Pulse Rate [ From Monitor] Respiratory 19 21 Rate Blood Pressure 122/80 128/56 124/48 O2 Sat by Pulse 94 94 Oximetry 09/02/20 09/02/20 09/02/20 07:26 07:30 07:45 Temperature Pulse Rate 105 H 106 H 106 H Pulse Rate [ From Monitor] Respiratory 21 25 H Rate Blood Pressure 124/48 131/56 136/66 O2 Sat by Pulse 96 Oximetry 09/02/20 09/02/20 09/02/20 08:00 08:15 08:30 Temperature Pulse Rate 107 H 107 H 109 H Pulse Rate [ 104 H From Monitor] Respiratory 20 33 H 32 H Rate Blood Pressure 131/64 144/68 145/68 O2 Sat by Pulse 99 98 98 Oximetry 09/02/20 09/02/20 09/02/20 08:45 09:00 09:15 Temperature Pulse Rate 110 H 110 H 109 H Pulse Rate [ From Monitor] Respiratory 30 H 30 H 31 H Rate Blood Pressure 150/66 137/70 154/67 O2 Sat by Pulse 97 97 98 Oximetry 09/02/20 09/02/20 09:30 09:45 Temperature Pulse Rate 109 H 106 H Pulse Rate [ From Monitor] Respiratory 32 H 31 H Rate Blood Pressure 145/67 151/66 O2 Sat by Pulse 97 97 Oximetry - General Apperance Constitutional: comfortable - Respiratory Respiratory: chest non-tender, lungs clear, rhonchi - Cardiovascular Cardiovascular: regular rate, normal S1, normal S2 Extremities: no peripheral edema bilat, no clubbing, cyanosis - Gastrointestinal Gastrointestinal: normoactive bowel sounds - Integumentary Integumentary: normal - Neurologic Cranial nerve examination: other (pupil 2mm slight EOM is noted no corneak no gag , no movment to pain stimuli) - Musculoskeletal Musculoskeletal: erythematous joints - Laboratory Findings CBC and BMP: 08/31/20 05:45 09/02/20 07:12 Abnormal Lab Findings: Abnormal Labs 08/30/20 08/30/20 08/30/20 00:14 00:15 00:15 WBC RBC 2.83 L Hgb 9.8 L Hct MCV 112 H MCH 35 H RDW 19.9 H Plt Count 95 L Lymph % (Auto) Lymph # (Auto) Seg Neutrophils % Nucleated RBC % 1.0 H Seg Neutrophils # D-Dimer ABG pH 7.199 L POC ABG pCO2 49.3 H POC ABG pO2 ABG HCO3 ABG Base Excess ABG Hemoglobin 11.9 L ABG Oxyhemoglobin 93.0 L ABG Sodium ABG Potassium 6.9 H ABG Chloride ABG Glucose 158 H Oxyhemoglobin Carboxyhemoglobin 2.8 H Sodium Potassium 7.0 H* Chloride Carbon Dioxide 18 L BUN 68 H Creatinine 8.3 H Glucose 174 H POC Glucose Calcium Phosphorus Magnesium Ferritin AST 68 H Alkaline Phosphatase 414 H Lactate Dehydrogenase Troponin T 0.085 H Total Protein 5.6 L Albumin 3.4 L HDL Cholesterol 66 H Arterial Blood Glucose 158 H Arterial Blood Ionized Calcium 08/30/20 08/30/20 08/30/20 00:15 00:15 03:10 WBC RBC Hgb Hct MCV MCH RDW Plt Count Lymph % (Auto) Lymph # (Auto) Seg Neutrophils % Nucleated RBC % Seg Neutrophils # D-Dimer 6083.16 H > 26108 H ABG pH POC ABG pCO2 POC ABG pO2 ABG HCO3 ABG Base Excess ABG Hemoglobin ABG Oxyhemoglobin ABG Sodium ABG Potassium ABG Chloride ABG Glucose Oxyhemoglobin Carboxyhemoglobin Sodium Potassium Chloride Carbon Dioxide BUN Creatinine Glucose POC Glucose Calcium Phosphorus 11.50 H Magnesium 3.80 H Ferritin AST Alkaline Phosphatase Lactate Dehydrogenase Troponin T Total Protein Albumin HDL Cholesterol Arterial Blood Glucose Arterial Blood Ionized Calcium 08/30/20 08/30/20 08/30/20 03:10 03:10 04:49 WBC RBC Hgb Hct MCV MCH RDW Plt Count Lymph % (Auto) Lymph # (Auto) Seg Neutrophils % Nucleated RBC % Seg Neutrophils # D-Dimer ABG pH POC ABG pCO2 POC ABG pO2 ABG HCO3 ABG Base Excess ABG Hemoglobin 10.8 L ABG Oxyhemoglobin ABG Sodium ABG Potassium 6.7 H ABG Chloride ABG Glucose 137 H Oxyhemoglobin Carboxyhemoglobin Sodium Potassium Chloride Carbon Dioxide BUN Creatinine Glucose 126 H POC Glucose Calcium Phosphorus Magnesium Ferritin 830.0 H AST Alkaline Phosphatase Lactate Dehydrogenase 400 H Troponin T Total Protein Albumin HDL Cholesterol Arterial Blood Glucose 137 H Arterial Blood Ionized Calcium 4.5 L 08/30/20 08/30/20 08/30/20 07:13 15:03 15:03 WBC 17.2 H RBC 3.23 L Hgb Hct MCV 108 H MCH 34 H RDW 19.4 H Plt Count 90 L Lymph % (Auto) Lymph # (Auto) Seg Neutrophils % Nucleated RBC % Seg Neutrophils # D-Dimer ABG pH POC ABG pCO2 POC ABG pO2 ABG HCO3 ABG Base Excess ABG Hemoglobin ABG Oxyhemoglobin ABG Sodium ABG Potassium ABG Chloride ABG Glucose Oxyhemoglobin Carboxyhemoglobin Sodium Potassium 8.2 H* 6.5 H* D Chloride 96.7 L Carbon Dioxide 21 L BUN 52 H Creatinine 5.7 H Glucose 220 H POC Glucose Calcium Phosphorus Magnesium Ferritin AST 68 H Alkaline Phosphatase 364 H Lactate Dehydrogenase Troponin T Total Protein Albumin 3.7 L HDL Cholesterol Arterial Blood Glucose Arterial Blood Ionized Calcium 08/30/20 08/30/20 08/31/20 17:27 21:03 04:07 WBC RBC Hgb Hct MCV MCH RDW Plt Count Lymph % (Auto) Lymph # (Auto) Seg Neutrophils % Nucleated RBC % Seg Neutrophils # D-Dimer ABG pH 7.498 H POC ABG pCO2 27.9 L POC ABG pO2 126.9 H ABG HCO3 ABG Base Excess ABG Hemoglobin 10.1 L ABG Oxyhemoglobin 98.3 H ABG Sodium 134.3 L ABG Potassium 6.7 H ABG Chloride ABG Glucose 261 H Oxyhemoglobin Carboxyhemoglobin 0.1 L Sodium Potassium Chloride Carbon Dioxide BUN Creatinine Glucose POC Glucose 223 H 230 H Calcium Phosphorus Magnesium Ferritin AST Alkaline Phosphatase Lactate Dehydrogenase Troponin T Total Protein Albumin HDL Cholesterol Arterial Blood Glucose 261 H Arterial Blood Ionized Calcium 3.6 L 08/31/20 08/31/20 08/31/20 05:01 05:45 05:45 WBC 13.1 H RBC 2.83 L Hgb 9.6 L Hct 29.8 L MCV 105 H MCH 34 H RDW 18.9 H Plt Count 88 L Lymph % (Auto) 6.9 L Lymph # (Auto) 0.9 L Seg Neutrophils % 87.8 H Nucleated RBC % Seg Neutrophils # 11.5 H D-Dimer ABG pH POC ABG pCO2 POC ABG pO2 ABG HCO3 ABG Base Excess ABG Hemoglobin ABG Oxyhemoglobin ABG Sodium ABG Potassium ABG Chloride ABG Glucose Oxyhemoglobin Carboxyhemoglobin Sodium Potassium 7.1 H* Chloride 96.7 L Carbon Dioxide BUN 74 H Creatinine 7.0 H Glucose 254 H POC Glucose 256 H Calcium 7.6 L Phosphorus Magnesium Ferritin AST Alkaline Phosphatase Lactate Dehydrogenase Troponin T Total Protein Albumin HDL Cholesterol Arterial Blood Glucose Arterial Blood Ionized Calcium 08/31/20 08/31/20 09/01/20 11:38 23:31 03:13 WBC RBC Hgb Hct MCV MCH RDW Plt Count Lymph % (Auto) Lymph # (Auto) Seg Neutrophils % Nucleated RBC % Seg Neutrophils # D-Dimer ABG pH 7.519 H POC ABG pCO2 POC ABG pO2 ABG HCO3 ABG Base Excess ABG Hemoglobin 9.3 L ABG Oxyhemoglobin ABG Sodium 134.7 L ABG Potassium ABG Chloride 94.0 L ABG Glucose 441 H Oxyhemoglobin Carboxyhemoglobin Sodium Potassium Chloride Carbon Dioxide BUN Creatinine Glucose POC Glucose 294 H 426 H Calcium Phosphorus Magnesium Ferritin AST Alkaline Phosphatase Lactate Dehydrogenase Troponin T Total Protein Albumin HDL Cholesterol Arterial Blood Glucose 441 H Arterial Blood Ionized Calcium 3.8 L 09/01/20 09/01/20 09/01/20 05:20 10:32 11:45 WBC RBC Hgb Hct MCV MCH RDW Plt Count Lymph % (Auto) Lymph # (Auto) Seg Neutrophils % Nucleated RBC % Seg Neutrophils # D-Dimer ABG pH POC ABG pCO2 POC ABG pO2 ABG HCO3 ABG Base Excess ABG Hemoglobin ABG Oxyhemoglobin ABG Sodium ABG Potassium ABG Chloride ABG Glucose Oxyhemoglobin Carboxyhemoglobin Sodium Potassium Chloride Carbon Dioxide BUN Creatinine Glucose POC Glucose 422 H 227 H 203 H Calcium Phosphorus Magnesium Ferritin AST Alkaline Phosphatase Lactate Dehydrogenase Troponin T Total Protein Albumin HDL Cholesterol Arterial Blood Glucose Arterial Blood Ionized Calcium 09/01/20 09/01/20 09/01/20 13:34 17:11 17:29 WBC RBC Hgb Hct MCV MCH RDW Plt Count Lymph % (Auto) Lymph # (Auto) Seg Neutrophils % Nucleated RBC % Seg Neutrophils # D-Dimer ABG pH POC ABG pCO2 POC ABG pO2 ABG HCO3 ABG Base Excess ABG Hemoglobin ABG Oxyhemoglobin ABG Sodium ABG Potassium ABG Chloride ABG Glucose Oxyhemoglobin Carboxyhemoglobin Sodium Potassium Chloride 94.5 L Carbon Dioxide BUN 29 H Creatinine 3.4 H D Glucose 241 H POC Glucose 212 H 198 H Calcium 8.2 L Phosphorus Magnesium Ferritin AST Alkaline Phosphatase Lactate Dehydrogenase Troponin T Total Protein Albumin HDL Cholesterol Arterial Blood Glucose Arterial Blood Ionized Calcium 09/01/20 09/02/20 09/02/20 21:33 03:08 03:40 WBC RBC Hgb Hct MCV MCH RDW Plt Count Lymph % (Auto) Lymph # (Auto) Seg Neutrophils % Nucleated RBC % Seg Neutrophils # D-Dimer ABG pH 7.506 H POC ABG pCO2 POC ABG pO2 ABG HCO3 29.4 H ABG Base Excess 5.9 H ABG Hemoglobin 8.3 L ABG Oxyhemoglobin ABG Sodium ABG Potassium ABG Chloride ABG Glucose Oxyhemoglobin 94.8 L Carboxyhemoglobin Sodium Potassium Chloride Carbon Dioxide BUN Creatinine Glucose POC Glucose 188 H 179 H Calcium Phosphorus Magnesium Ferritin AST Alkaline Phosphatase Lactate Dehydrogenase Troponin T Total Protein Albumin HDL Cholesterol Arterial Blood Glucose Arterial Blood Ionized Calcium 09/02/20 09/02/20 09/02/20 05:55 07:12 09:28 WBC RBC Hgb Hct MCV MCH RDW Plt Count Lymph % (Auto) Lymph # (Auto) Seg Neutrophils % Nucleated RBC % Seg Neutrophils # D-Dimer ABG pH POC ABG pCO2 POC ABG pO2 ABG HCO3 ABG Base Excess ABG Hemoglobin ABG Oxyhemoglobin ABG Sodium ABG Potassium ABG Chloride ABG Glucose Oxyhemoglobin Carboxyhemoglobin Sodium 136 L Potassium Chloride 91.6 L Carbon Dioxide BUN 52 H Creatinine 5.5 H D Glucose 176 H POC Glucose 185 H 196 H Calcium 7.7 L Phosphorus Magnesium Ferritin AST Alkaline Phosphatase Lactate Dehydrogenase Troponin T Total Protein Albumin HDL Cholesterol Arterial Blood Glucose Arterial Blood Ionized Calcium
--- NOTE | 2020-09-02 10:50 | Progress Note ---
Assessment and Plan Out of hospital cardiopulmonary arrest Brain MRI is consistent with anoxic brain injury normal LVEF 55-60% by echocardiogram no evidence of DVT by LE duplex End-stage renal disease on hemodialysis Hx of multiple myeloma s/p chemotherapy Hypertension Diabetes Continue intravenous nitro drip and intravenous metoprolol for optimal hyper tension management. Supportive cardiac management. Subjective Date of service: 09/02/20 Principal diagnosis: Cardiac arrest; Ac. hypoxemic resp failure; PNA; ESRD; NSTEMI; Hyperkalemia Interval history: Patient remains unresponsive, on the ventilator. Brain MRI is consistent with anoxic brain injury Objective Vital Signs Temp Pulse Pulse Resp BP Pulse Ox Pulse Ox 09/02/20 09:45 106 H 31 H 151/66 97 09/02/20 09:30 109 H 32 H 145/67 97 09/02/20 09:15 109 H 31 H 154/67 98 09/02/20 09:00 110 H 30 H 137/70 97 09/02/20 08:45 110 H 30 H 150/66 97 09/02/20 08:30 109 H 32 H 145/68 98 09/02/20 08:15 107 H 33 H 144/68 98 09/02/20 08:00 107 H 104 H 20 131/64 99 09/02/20 07:45 106 H 25 H 136/66 09/02/20 07:30 106 H 21 131/56 09/02/20 07:26 105 H 124/48 96 09/02/20 07:16 105 H 21 124/48 94 09/02/20 07:00 101.5 F H 103 H 19 128/56 94 09/02/20 06:48 115 H 122/80 09/02/20 06:46 118 H 23 122/80 94 09/02/20 06:30 116 H 24 130/64 89 09/02/20 06:15 120 H 23 147/55 94 09/02/20 06:00 123 H 22 135/53 94 09/02/20 05:45 124 H 22 136/63 94 09/02/20 05:30 124 H 25 H 127/64 94 09/02/20 05:16 116 H 26 H 155/59 94 09/02/20 05:00 116 H 26 H 139/55 93 09/02/20 04:46 113 H 24 147/51 91 09/02/20 04:30 118 H 28 H 158/61 94 09/02/20 04:15 124 H 25 H 161/62 94 09/02/20 04:00 113 H 114 H 24 138/69 95 09/02/20 03:54 115 H 160/72 95 09/02/20 03:47 99.6 F 09/02/20 03:46 113 H 25 H 160/72 94 09/02/20 03:30 112 H 25 H 162/30 98 09/02/20 03:15 113 H 26 H 146/72 93 09/02/20 03:00 115 H 33 H 154/65 85 09/02/20 02:45 112 H 25 H 146/65 84 09/02/20 02:30 113 H 27 H 136/70 88 09/02/20 02:15 112 H 26 H 144/54 90 09/02/20 02:00 108 H 26 H 144/60 90 09/02/20 01:45 110 H 28 H 144/60 91 09/02/20 01:30 105 H 29 H 137/66 93 09/02/20 01:15 103 H 24 134/66 93 09/02/20 01:00 104 H 26 H 137/72 94 09/02/20 00:45 99 H 24 152/69 93 09/02/20 00:38 112 H 166/73 09/02/20 00:30 115 H 25 H 166/73 95 09/02/20 00:16 111 H 27 H 166/71 97 09/02/20 00:08 113 H 28 H 178/65 96 09/02/20 00:00 98.9 F 107 H 112 H 25 H 178/65 96 09/01/20 23:52 109 H 181/74 96 09/01/20 23:46 110 H 16 201/70 99 09/01/20 23:30 105 H 22 181/74 97 09/01/20 23:15 108 H 22 177/72 95 09/01/20 23:00 109 H 25 H 176/59 94 09/01/20 22:46 111 H 24 173/72 93 09/01/20 22:30 106 H 22 173/72 94 09/01/20 22:16 107 H 23 194/59 95 09/01/20 22:00 106 H 18 181/76 96 09/01/20 21:45 103 H 18 184/71 99 09/01/20 21:30 102 H 19 174/72 99 09/01/20 21:16 104 H 21 199/65 96 09/01/20 21:00 104 H 21 178/72 98 09/01/20 20:45 98 H 20 178/72 98 09/01/20 20:30 101 H 17 178/76 97 09/01/20 20:15 102 H 20 178/72 100 09/01/20 20:09 102 H 171/63 98 09/01/20 20:00 99.3 F 103 H 101 H 17 171/63 97 09/01/20 19:45 100 H 17 157/63 96 09/01/20 19:30 102 H 19 168/74 98 09/01/20 19:15 102 H 19 156/74 98 09/01/20 19:00 104 H 20 174/63 98 09/01/20 18:46 102 H 16 175/62 98 09/01/20 18:30 99 H 19 162/69 99 09/01/20 18:16 99 H 16 149/66 98 09/01/20 18:00 104 H 19 142/56 98 09/01/20 17:50 100 H 17 158/54 98 09/01/20 17:40 92 H 20 158/54 98 09/01/20 17:30 90 17 158/54 98 09/01/20 17:20 98 H 18 158/54 98 09/01/20 17:15 103 H 158/54 09/01/20 17:10 106 H 22 158/54 98 09/01/20 17:00 107 H 19 158/54 98 09/01/20 16:50 108 H 19 184/60 98 09/01/20 16:40 114 H 21 184/60 98 09/01/20 16:30 111 H 18 184/60 98 09/01/20 16:20 111 H 17 184/60 97 09/01/20 16:10 113 H 17 184/60 96 09/01/20 16:00 101.6 F H 110 H 109 H 15 184/71 100 09/01/20 15:50 106 H 20 166/66 96 09/01/20 15:40 116 H 18 166/66 98 09/01/20 15:30 105 H 17 166/66 99 09/01/20 15:20 103 H 22 166/66 98 09/01/20 15:10 107 H 21 166/66 98 09/01/20 15:00 111 H 22 166/66 93 09/01/20 14:50 110 H 25 H 118/64 09/01/20 14:48 109 H 35 H 118/64 09/01/20 13:40 114 H 20 152/62 100 09/01/20 13:30 118 H 21 127/62 100 09/01/20 13:28 118 H 127/62 100 09/01/20 13:20 122 H 20 152/62 100 09/01/20 13:17 119 H 152/62 09/01/20 13:10 124 H 21 131/78 100 09/01/20 13:00 120 H 23 141/62 100 09/01/20 12:50 117 H 23 131/78 97 09/01/20 12:46 100 F H 113 H 131/78 09/01/20 12:40 119 H 26 H 110/53 100 09/01/20 12:30 125 H 28 H 103/54 100 09/01/20 12:20 121 H 27 H 110/53 100 09/01/20 12:15 116 H 110/53 09/01/20 12:12 100.2 F H 09/01/20 12:10 118 H 20 130/60 100 09/01/20 12:00 116 H 123 H 25 H 113/56 09/01/20 11:50 116 H 24 130/60 100 09/01/20 11:45 116 H 130/60 09/01/20 11:40 116 H 26 H 125/60 09/01/20 11:30 119 H 22 125/60 100 09/01/20 11:20 115 H 26 H 131/65 100 09/01/20 11:15 114 H 131/65 09/01/20 11:10 115 H 24 147/64 100 09/01/20 11:00 113 H 24 147/64 100 09/01/20 10:50 112 H 22 152/68 100 - Physical Examination General: Other (unresponsive on the vent) HEENT: Positive: Other (Pupils fixed) Cardiac: Positive: Tachycardia Neuro: Positive: Other (Unresponsive, on the vent) Extremities: Absent: edema - Labs and Meds Comprehensive Metabolic Panel 09/01/20 09/02/20 Range/Units 13:34 07:12 Sodium 137 136 L (137-145) mmol/L Potassium 3.6 D 4.0 (3.6-5.0) mmol/L Chloride 94.5 L 91.6 L (98-107) mmol/L Carbon Dioxide 29 29 (22-30) mmol/L BUN 29 H 52 H (7-17) mg/dL Creatinine 3.4 H D 5.5 H D (0.6-1.2) mg/dL Glucose 241 H 176 H (65-100) mg/dL Calcium 8.2 L 7.7 L (8.4-10.2) mg/dL - Allied health notes Allied health notes reviewed: nursing
[2020-09-02] MEDS: NITROGLYCERIN DRIP 50 MG/250 ML BOTTLE IV SCH (13:42)
[2020-09-02] MEDS: MEROPENEM/NS 500 MG/50 ML 500 MG/50 ML BAG IV SCH (13:43)
--- NOTE | 2020-09-02 13:44 | Progress Note ---
Assessment and Plan Cardiac arrest with return of spontaneous circulation Acute hypoxemic respiratory failure Bilateral pneumonia, possibly aspiration Bilateral pulmonary edema End-stage renal disease, on dialysis NSTEMI Severe hyperkalemia History of multiple myeloma History of hypertension Anemia that is microcytic Elevated serum troponin - NOK will talk to hospice - wants continued aggressive care meanwhile - AMS remains rate limiting step to safe extubation - continue Meropenem; de-escalate per ID recommendations - continue care as below; - continue Daily SAT and SBT assessment as tolerated - continue to wean supplemental oxygen for target O2 sat's > 90% acutely - VAP bundle addressed - continue lung protective strategies - continue bronchodilators with pulmonary hygiene per RT - wean per pulmonary driven protocols otherwise - continue HD/UF for toxin and volume clearance - avoid nephrotoxins, renally dose all medications - continue accuchecks with glycemic control per SSI (While critically ill target blood glucose of 140-180 mg/dL; avoid hypoglycemia) - sedation prn for target RASS 0 to -1 - continue to avoid benzodiazepine's, reduce the possibility of delirium - complete AB's per ID rec's - prn analgesia per CPOT score - Maintenance of sleep-wake cycle, avoid delirium - continue enteral nutritional support at goal rate as tolerated - G.I. & VTE prophylaxis - PT/OT/ROM exercises - continue mobility protocols for pressure ulcer prophylaxis - Monitor hemodynamics closely - continue other care per attending / other consultants - discharge planning ongoing concurrently COVID SPECIFIC INTERVENTIONS - COVID PCR negative .... Re-evaluate in am & prn CONDITION: CRITICAL PROGNOSIS: GUARDED CODE STATUS: FULL CODE The high probability of a clinically significant, sudden or life-threatening deterioration of the [respiratory, cardiovascular, hematologic, renal & neurologic] system(s) required my full and direct attention, intervention and personal management. The aggregate critical care time was [33] minutes without overlap. Time includes spent on; [x] Data Review and interpretation [x] Patient assessment and monitoring of vital signs [x] Documentation [x] Medication orders and management Subjective Date of service: 09/02/20 Principal diagnosis: Cardiac arrest; Ac. hypoxemic resp failure; PNA; ESRD; NSTEMI; Hyperkalemia Interval history: Patient is seen today for: Cardiac arrest with ROSC; Acute hypoxemic respiratory failure; Aspiration Pneumonia; ESRD on dialysis; NSTEMI; Hyperkalemia Seen and examined at bedside; 24hour events reviewed; nursing and respiratory care staff consulted; no adverse overnight events reported to me; resting peacefully in bed; MRI confirms anoxic injury; poor prognosis expressed to family by neurologist; she remains on MVS and dense AMS is persistent Objective Vital Signs - 12hr 09/02/20 09/02/20 09/02/20 01:45 02:00 02:15 Temperature Pulse Rate 110 H 108 H 112 H Pulse Rate [ From Monitor] Respiratory 28 H 26 H 26 H Rate Blood Pressure 144/60 144/60 144/54 O2 Sat by Pulse 91 90 90 Oximetry 09/02/20 09/02/20 09/02/20 02:30 02:45 03:00 Temperature Pulse Rate 113 H 112 H 115 H Pulse Rate [ From Monitor] Respiratory 27 H 25 H 33 H Rate Blood Pressure 136/70 146/65 154/65 O2 Sat by Pulse 88 84 85 Oximetry 09/02/20 09/02/20 09/02/20 03:15 03:30 03:46 Temperature Pulse Rate 113 H 112 H 113 H Pulse Rate [ From Monitor] Respiratory 26 H 25 H 25 H Rate Blood Pressure 146/72 162/30 160/72 O2 Sat by Pulse 93 98 94 Oximetry 09/02/20 09/02/20 09/02/20 03:47 03:54 04:00 Temperature 99.6 F Pulse Rate 115 H 113 H Pulse Rate [ 114 H From Monitor] Respiratory 24 Rate Blood Pressure 160/72 138/69 O2 Sat by Pulse 95 95 Oximetry 09/02/20 09/02/20 09/02/20 04:15 04:30 04:46 Temperature Pulse Rate 124 H 118 H 113 H Pulse Rate [ From Monitor] Respiratory 25 H 28 H 24 Rate Blood Pressure 161/62 158/61 147/51 O2 Sat by Pulse 94 94 91 Oximetry 09/02/20 09/02/20 09/02/20 05:00 05:16 05:30 Temperature Pulse Rate 116 H 116 H 124 H Pulse Rate [ From Monitor] Respiratory 26 H 26 H 25 H Rate Blood Pressure 139/55 155/59 127/64 O2 Sat by Pulse 93 94 94 Oximetry 09/02/20 09/02/20 09/02/20 05:45 06:00 06:15 Temperature Pulse Rate 124 H 123 H 120 H Pulse Rate [ From Monitor] Respiratory 22 22 23 Rate Blood Pressure 136/63 135/53 147/55 O2 Sat by Pulse 94 94 94 Oximetry 09/02/20 09/02/20 09/02/20 06:30 06:46 06:48 Temperature Pulse Rate 116 H 118 H 115 H Pulse Rate [ From Monitor] Respiratory 24 23 Rate Blood Pressure 130/64 122/80 122/80 O2 Sat by Pulse 89 94 Oximetry 09/02/20 09/02/20 09/02/20 07:00 07:16 07:26 Temperature 101.5 F H Pulse Rate 103 H 105 H 105 H Pulse Rate [ From Monitor] Respiratory 19 21 Rate Blood Pressure 128/56 124/48 124/48 O2 Sat by Pulse 94 94 96 Oximetry 09/02/20 09/02/20 09/02/20 07:30 07:45 08:00 Temperature Pulse Rate 106 H 106 H 107 H Pulse Rate [ 104 H From Monitor] Respiratory 21 25 H 20 Rate Blood Pressure 131/56 136/66 131/64 O2 Sat by Pulse 99 Oximetry 09/02/20 09/02/20 09/02/20 08:15 08:30 08:45 Temperature Pulse Rate 107 H 109 H 110 H Pulse Rate [ From Monitor] Respiratory 33 H 32 H 30 H Rate Blood Pressure 144/68 145/68 150/66 O2 Sat by Pulse 98 98 97 Oximetry 09/02/20 09/02/20 09/02/20 09:00 09:15 09:30 Temperature Pulse Rate 110 H 109 H 109 H Pulse Rate [ From Monitor] Respiratory 30 H 31 H 32 H Rate Blood Pressure 137/70 154/67 145/67 O2 Sat by Pulse 97 98 97 Oximetry 09/02/20 09/02/20 09/02/20 09:45 10:00 10:15 Temperature Pulse Rate 106 H 108 H 105 H Pulse Rate [ From Monitor] Respiratory 31 H 30 H 28 H Rate Blood Pressure 151/66 154/67 157/58 O2 Sat by Pulse 97 97 96 Oximetry 09/02/20 09/02/20 09/02/20 10:30 10:45 11:00 Temperature Pulse Rate 104 H 104 H 105 H Pulse Rate [ From Monitor] Respiratory 29 H 30 H 21 Rate Blood Pressure 141/57 136/53 128/56 O2 Sat by Pulse 96 97 96 Oximetry 09/02/20 09/02/20 09/02/20 11:15 11:28 11:30 Temperature 100.8 F H Pulse Rate 101 H 102 H Pulse Rate [ From Monitor] Respiratory 30 H 29 H Rate Blood Pressure 133/57 134/57 O2 Sat by Pulse 98 97 Oximetry 09/02/20 09/02/20 09/02/20 11:32 11:45 12:00 Temperature Pulse Rate 102 H 102 H 103 H Pulse Rate [ 104 H From Monitor] Respiratory 27 H 28 H 28 H Rate Blood Pressure 134/57 140/56 130/56 O2 Sat by Pulse 98 95 95 Oximetry 09/02/20 09/02/20 09/02/20 12:15 12:30 12:45 Temperature Pulse Rate 101 H 100 H 101 H Pulse Rate [ From Monitor] Respiratory 28 H 28 H 31 H Rate Blood Pressure 143/61 142/61 146/64 O2 Sat by Pulse 94 97 95 Oximetry 09/02/20 09/02/20 09/02/20 13:00 13:16 13:30 Temperature Pulse Rate 102 H 98 H 95 H Pulse Rate [ From Monitor] Respiratory 27 H 27 H 29 H Rate Blood Pressure 153/57 163/52 149/62 O2 Sat by Pulse 95 95 95 Oximetry Constitutional: appears uncomfortable, other (elderly female with mildly increased respiratory effort at rest on MVS) Eyes: non-icteric ENT: oropharynx moist, other (ETT 23 cm COLLEEN) Neck: supple, no lymphadenopathy, no JVD Effort: mildly labored Ascultation: Bilateral: rhonchi Percussion: Bilateral: not dull Cardiovascular: regular rate and rhythm Gastrointestinal: normoactive bowel sounds Integumentary: normal Extremities: no cyanosis, pulses normal, no ischemia or petechiae Neurologic: pupils equal and round, other Psychiatric: other (unable to assess re: AMS) CBC and BMP: 08/31/20 05:45 09/02/20 07:12 ABG, PT/INR, D-dimer: ABG ABG pH 7.506 pH Units (7.350-7.450) H 09/02/20 03:40 POC ABG pCO2 35.9 mmHg (32.0-48.0) 09/01/20 03:13 ABG pCO2 38.0 mm Hg 09/02/20 03:40 POC ABG pO2 89.7 mmHg (83-108) 09/01/20 03:13 ABG pO2 83.1 mm Hg (80.0-90.0) 09/02/20 03:40 POC ABG HCO3 28.6 09/01/20 03:13 ABG O2 Saturation 97.2 % (95.0-99.0) 09/02/20 03:40 PT/INR, D-dimer PT 12.8 Sec. (12.2-14.9) 08/31/20 05:45 INR 0.90 (0.87-1.13) 08/31/20 05:45 D-Dimer > 94861 ng/mlDDU (0-234) H 08/30/20 03:10 Abnormal lab findings: Abnormal Labs 08/30/20 08/30/20 08/30/20 00:14 00:15 00:15 WBC RBC 2.83 L Hgb 9.8 L Hct MCV 112 H MCH 35 H RDW 19.9 H Plt Count 95 L Lymph % (Auto) Lymph # (Auto) Seg Neutrophils % Nucleated RBC % 1.0 H Seg Neutrophils # D-Dimer ABG pH 7.199 L POC ABG pCO2 49.3 H POC ABG pO2 ABG HCO3 ABG Base Excess ABG Hemoglobin 11.9 L ABG Oxyhemoglobin 93.0 L ABG Sodium ABG Potassium 6.9 H ABG Chloride ABG Glucose 158 H Oxyhemoglobin Carboxyhemoglobin 2.8 H Sodium Potassium 7.0 H* Chloride Carbon Dioxide 18 L BUN 68 H Creatinine 8.3 H Glucose 174 H POC Glucose Calcium Phosphorus Magnesium Ferritin AST 68 H Alkaline Phosphatase 414 H Lactate Dehydrogenase Troponin T 0.085 H Total Protein 5.6 L Albumin 3.4 L HDL Cholesterol 66 H Arterial Blood Glucose 158 H Arterial Blood Ionized Calcium 08/30/20 08/30/20 08/30/20 00:15 00:15 03:10 WBC RBC Hgb Hct MCV MCH RDW Plt Count Lymph % (Auto) Lymph # (Auto) Seg Neutrophils % Nucleated RBC % Seg Neutrophils # D-Dimer 6083.16 H > 02819 H ABG pH POC ABG pCO2 POC ABG pO2 ABG HCO3 ABG Base Excess ABG Hemoglobin ABG Oxyhemoglobin ABG Sodium ABG Potassium ABG Chloride ABG Glucose Oxyhemoglobin Carboxyhemoglobin Sodium Potassium Chloride Carbon Dioxide BUN Creatinine Glucose POC Glucose Calcium Phosphorus 11.50 H Magnesium 3.80 H Ferritin AST Alkaline Phosphatase Lactate Dehydrogenase Troponin T Total Protein Albumin HDL Cholesterol Arterial Blood Glucose Arterial Blood Ionized Calcium 08/30/20 08/30/20 08/30/20 03:10 03:10 04:49 WBC RBC Hgb Hct MCV MCH RDW Plt Count Lymph % (Auto) Lymph # (Auto) Seg Neutrophils % Nucleated RBC % Seg Neutrophils # D-Dimer ABG pH POC ABG pCO2 POC ABG pO2 ABG HCO3 ABG Base Excess ABG Hemoglobin 10.8 L ABG Oxyhemoglobin ABG Sodium ABG Potassium 6.7 H ABG Chloride ABG Glucose 137 H Oxyhemoglobin Carboxyhemoglobin Sodium Potassium Chloride Carbon Dioxide BUN Creatinine Glucose 126 H POC Glucose Calcium Phosphorus Magnesium Ferritin 830.0 H AST Alkaline Phosphatase Lactate Dehydrogenase 400 H Troponin T Total Protein Albumin HDL Cholesterol Arterial Blood Glucose 137 H Arterial Blood Ionized Calcium 4.5 L 08/30/20 08/30/20 08/30/20 07:13 15:03 15:03 WBC 17.2 H RBC 3.23 L Hgb Hct MCV 108 H MCH 34 H RDW 19.4 H Plt Count 90 L Lymph % (Auto) Lymph # (Auto) Seg Neutrophils % Nucleated RBC % Seg Neutrophils # D-Dimer ABG pH POC ABG pCO2 POC ABG pO2 ABG HCO3 ABG Base Excess ABG Hemoglobin ABG Oxyhemoglobin ABG Sodium ABG Potassium ABG Chloride ABG Glucose Oxyhemoglobin Carboxyhemoglobin Sodium Potassium 8.2 H* 6.5 H* D Chloride 96.7 L Carbon Dioxide 21 L BUN 52 H Creatinine 5.7 H Glucose 220 H POC Glucose Calcium Phosphorus Magnesium Ferritin AST 68 H Alkaline Phosphatase 364 H Lactate Dehydrogenase Troponin T Total Protein Albumin 3.7 L HDL Cholesterol Arterial Blood Glucose Arterial Blood Ionized Calcium 08/30/20 08/30/20 08/31/20 17:27 21:03 04:07 WBC RBC Hgb Hct MCV MCH RDW Plt Count Lymph % (Auto) Lymph # (Auto) Seg Neutrophils % Nucleated RBC % Seg Neutrophils # D-Dimer ABG pH 7.498 H POC ABG pCO2 27.9 L POC ABG pO2 126.9 H ABG HCO3 ABG Base Excess ABG Hemoglobin 10.1 L ABG Oxyhemoglobin 98.3 H ABG Sodium 134.3 L ABG Potassium 6.7 H ABG Chloride ABG Glucose 261 H Oxyhemoglobin Carboxyhemoglobin 0.1 L Sodium Potassium Chloride Carbon Dioxide BUN Creatinine Glucose POC Glucose 223 H 230 H Calcium Phosphorus Magnesium Ferritin AST Alkaline Phosphatase Lactate Dehydrogenase Troponin T Total Protein Albumin HDL Cholesterol Arterial Blood Glucose 261 H Arterial Blood Ionized Calcium 3.6 L 08/31/20 08/31/20 08/31/20 05:01 05:45 05:45 WBC 13.1 H RBC 2.83 L Hgb 9.6 L Hct 29.8 L MCV 105 H MCH 34 H RDW 18.9 H Plt Count 88 L Lymph % (Auto) 6.9 L Lymph # (Auto) 0.9 L Seg Neutrophils % 87.8 H Nucleated RBC % Seg Neutrophils # 11.5 H D-Dimer ABG pH POC ABG pCO2 POC ABG pO2 ABG HCO3 ABG Base Excess ABG Hemoglobin ABG Oxyhemoglobin ABG Sodium ABG Potassium ABG Chloride ABG Glucose Oxyhemoglobin Carboxyhemoglobin Sodium Potassium 7.1 H* Chloride 96.7 L Carbon Dioxide BUN 74 H Creatinine 7.0 H Glucose 254 H POC Glucose 256 H Calcium 7.6 L Phosphorus Magnesium Ferritin AST Alkaline Phosphatase Lactate Dehydrogenase Troponin T Total Protein Albumin HDL Cholesterol Arterial Blood Glucose Arterial Blood Ionized Calcium 08/31/20 08/31/20 09/01/20 11:38 23:31 03:13 WBC RBC Hgb Hct MCV MCH RDW Plt Count Lymph % (Auto) Lymph # (Auto) Seg Neutrophils % Nucleated RBC % Seg Neutrophils # D-Dimer ABG pH 7.519 H POC ABG pCO2 POC ABG pO2 ABG HCO3 ABG Base Excess ABG Hemoglobin 9.3 L ABG Oxyhemoglobin ABG Sodium 134.7 L ABG Potassium ABG Chloride 94.0 L ABG Glucose 441 H Oxyhemoglobin Carboxyhemoglobin Sodium Potassium Chloride Carbon Dioxide BUN Creatinine Glucose POC Glucose 294 H 426 H Calcium Phosphorus Magnesium Ferritin AST Alkaline Phosphatase Lactate Dehydrogenase Troponin T Total Protein Albumin HDL Cholesterol Arterial Blood Glucose 441 H Arterial Blood Ionized Calcium 3.8 L 09/01/20 09/01/20 09/01/20 05:20 10:32 11:45 WBC RBC Hgb Hct MCV MCH RDW Plt Count Lymph % (Auto) Lymph # (Auto) Seg Neutrophils % Nucleated RBC % Seg Neutrophils # D-Dimer ABG pH POC ABG pCO2 POC ABG pO2 ABG HCO3 ABG Base Excess ABG Hemoglobin ABG Oxyhemoglobin ABG Sodium ABG Potassium ABG Chloride ABG Glucose Oxyhemoglobin Carboxyhemoglobin Sodium Potassium Chloride Carbon Dioxide BUN Creatinine Glucose POC Glucose 422 H 227 H 203 H Calcium Phosphorus Magnesium Ferritin AST Alkaline Phosphatase Lactate Dehydrogenase Troponin T Total Protein Albumin HDL Cholesterol Arterial Blood Glucose Arterial Blood Ionized Calcium 09/01/20 09/01/20 09/01/20 13:34 17:11 17:29 WBC RBC Hgb Hct MCV MCH RDW Plt Count Lymph % (Auto) Lymph # (Auto) Seg Neutrophils % Nucleated RBC % Seg Neutrophils # D-Dimer ABG pH POC ABG pCO2 POC ABG pO2 ABG HCO3 ABG Base Excess ABG Hemoglobin ABG Oxyhemoglobin ABG Sodium ABG Potassium ABG Chloride ABG Glucose Oxyhemoglobin Carboxyhemoglobin Sodium Potassium Chloride 94.5 L Carbon Dioxide BUN 29 H Creatinine 3.4 H D Glucose 241 H POC Glucose 212 H 198 H Calcium 8.2 L Phosphorus Magnesium Ferritin AST Alkaline Phosphatase Lactate Dehydrogenase Troponin T Total Protein Albumin HDL Cholesterol Arterial Blood Glucose Arterial Blood Ionized Calcium 09/01/20 09/02/20 09/02/20 21:33 03:08 03:40 WBC RBC Hgb Hct MCV MCH RDW Plt Count Lymph % (Auto) Lymph # (Auto) Seg Neutrophils % Nucleated RBC % Seg Neutrophils # D-Dimer ABG pH 7.506 H POC ABG pCO2 POC ABG pO2 ABG HCO3 29.4 H ABG Base Excess 5.9 H ABG Hemoglobin 8.3 L ABG Oxyhemoglobin ABG Sodium ABG Potassium ABG Chloride ABG Glucose Oxyhemoglobin 94.8 L Carboxyhemoglobin Sodium Potassium Chloride Carbon Dioxide BUN Creatinine Glucose POC Glucose 188 H 179 H Calcium Phosphorus Magnesium Ferritin AST Alkaline Phosphatase Lactate Dehydrogenase Troponin T Total Protein Albumin HDL Cholesterol Arterial Blood Glucose Arterial Blood Ionized Calcium 09/02/20 09/02/20 09/02/20 05:55 07:12 09:28 WBC RBC Hgb Hct MCV MCH RDW Plt Count Lymph % (Auto) Lymph # (Auto) Seg Neutrophils % Nucleated RBC % Seg Neutrophils # D-Dimer ABG pH POC ABG pCO2 POC ABG pO2 ABG HCO3 ABG Base Excess ABG Hemoglobin ABG Oxyhemoglobin ABG Sodium ABG Potassium ABG Chloride ABG Glucose Oxyhemoglobin Carboxyhemoglobin Sodium 136 L Potassium Chloride 91.6 L Carbon Dioxide BUN 52 H Creatinine 5.5 H D Glucose 176 H POC Glucose 185 H 196 H Calcium 7.7 L Phosphorus Magnesium Ferritin AST Alkaline Phosphatase Lactate Dehydrogenase Troponin T Total Protein Albumin HDL Cholesterol Arterial Blood Glucose Arterial Blood Ionized Calcium Chest x-ray: image reviewed Allied health notes reviewed: nursing
--- NOTE | 2020-09-02 15:15 | Progress Note ---
Assessment and Plan Cultures: Blood cultures 08/30/2020 no growth so far Tracheal aspirate culture 08/30/2020 no growth so far A/P: 65 yo F PMH EFx ESRD on HD, multiple myeloma s/p chemo and BMT, DM2 presented after being found non-responsive. #Acute hypoxic respiratory failure: secondary to edema vs infection. Normal white count, afebrile (low temps right now). Proclacitonin likely to be falsely elevated in renal failure as it is renally excreted. Given pericardial effusion, most likely her resp failure is due to volume/hyperkalemia, however given her immunocompromised status will continue empiric antibiotics for now. #Multiple myeloma: s/p chemo and BMT. Unclear dates of these and status of remission/vaccinations. Will presume immunocompromised for now #ESRD on HD: renally dose medications #Hyperkalemia #Anoxic brain injury Recs: -Given potential for immunocompromise as above, will treat with meropenem for now. complete 8 days -I do presume her symptoms are more likely to fluid/electrolyte imabalance, as such will likely de-escalate shortly assuming infective data remains negative -No evidence of fungal cavitations on CTA. -Fevers most likely with a central component given global anoxic brain injury. Thank you for the consult, we will continue to follow. Ender Hale MD [facility] O: [phone] F: [phone] Subjective Date of service: 09/02/20 Principal diagnosis: Cardiac arrest; Ac. hypoxemic resp failure; PNA; ESRD; NSTEMI; Hyperkalemia Interval history: Febrile to 101.5 with a white count of 13.1. All cultures remain negative. Imaging personally reviewed: Brain MRI: Global anoxic brain injury Chest x-ray: Venous congestion Objective - Exam Narrative Exam: Physical Exam: Constitutional: intubated, sedated Head, Ears, Nose: Normocephalic, atraumatic. External ears, nose normal Eyes: Conjunctivae/corneas clear. No icterus. No ptosis. Neck: ETT Oral: ETT Cardiovascular: S1, S2 normal. Respiratory: Good air entry, clear to auscultation bilaterally GI: Soft, non-tender; bowel sounds normal. No peritoneal signs. Musculoskeletal: No pedal edema, no cyanosis. Skin: No rash or abscess Hem/Lymphatic: No palpable cervical or supraclavicular nodes. No lymphangitis Psych: Sedated Neurological: Sedated - Constitutional Vitals: Vital Signs Temp Pulse Resp BP Pulse Ox 100.8 F H 101 H 24 164/71 96 09/02/20 11:28 09/02/20 15:00 09/02/20 15:00 09/02/20 15:00 09/02/20 15:00 Temperature -Last 24 Hours Temperature 100.8 F Temperature 101.5 F Temperature 99.6 F Temperature 98.9 F Temperature 99.3 F Temperature 101.6 F - Labs CBC & Chem 7: 08/31/20 05:45 09/02/20 07:12 Labs: Abnormal lab results 09/01/20 09/01/20 09/01/20 Range/Units 17:11 17:29 21:33 ABG pH (7.350-7.450) pH Units ABG HCO3 (20.0-26.0) mmol/L ABG Base Excess (-2.0-3.0) mmol/L ABG Hemoglobin (12.0-16.0) gm/dl Oxyhemoglobin (95.0-99.0) % Sodium (137-145) mmol/L Chloride (98-107) mmol/L BUN (7-17) mg/dL Creatinine (0.6-1.2) mg/dL Glucose (65-100) mg/dL POC Glucose 212 H 198 H 188 H (70-105) mg/dL Calcium (8.4-10.2) mg/dL 09/02/20 09/02/20 09/02/20 Range/Units 03:08 03:40 05:55 ABG pH 7.506 H (7.350-7.450) pH Units ABG HCO3 29.4 H (20.0-26.0) mmol/L ABG Base Excess 5.9 H (-2.0-3.0) mmol/L ABG Hemoglobin 8.3 L (12.0-16.0) gm/dl Oxyhemoglobin 94.8 L (95.0-99.0) % Sodium (137-145) mmol/L Chloride (98-107) mmol/L BUN (7-17) mg/dL Creatinine (0.6-1.2) mg/dL Glucose (65-100) mg/dL POC Glucose 179 H 185 H (70-105) mg/dL Calcium (8.4-10.2) mg/dL 09/02/20 09/02/20 Range/Units 07:12 09:28 ABG pH (7.350-7.450) pH Units ABG HCO3 (20.0-26.0) mmol/L ABG Base Excess (-2.0-3.0) mmol/L ABG Hemoglobin (12.0-16.0) gm/dl Oxyhemoglobin (95.0-99.0) % Sodium 136 L (137-145) mmol/L Chloride 91.6 L (98-107) mmol/L BUN 52 H (7-17) mg/dL Creatinine 5.5 H D (0.6-1.2) mg/dL Glucose 176 H (65-100) mg/dL POC Glucose 196 H (70-105) mg/dL Calcium 7.7 L (8.4-10.2) mg/dL
--- NOTE | 2020-09-02 16:43 | Progress Note ---
<PROMISEBONNIEVivi - Last Filed: 09/02/20 16:40> Assessment and Plan Assessment and plan: This is 65-year-old female with DM, HTN, HLD, ESRD on HD MWF, multiple myeloma s/p chemotherapy and stem cell transplant and current tobacco abuse who was admitted s/p cardiac arrest with anoxic encephalopathy, hypertensive emergency, multifocal pneumonia and has a COVID-19 PUI COVID-19, ruled out S/p cardiac arrest Acute hypoxic respiratory failure Diffuse anoxic brain injury as evidenced by MRI Pericardial effusion Severe cardiomegaly Anoxic encephalopathy Hyperkalemia Hyperglycemia Leukocytosis Transaminitis Hypertension Hyperlipidemia ESRD on HD Multiple myeloma Current tobacco abuse -CCM, nephrology, cardiology, infectious disease, neurology consulted, appreciate recommendations -08/29 CXR shows moderate enlargement of cardiac silhouette, diffuse bilateral mixed chest x-ray and airspace disease -08/30 CT C-spine shows no CT evidence of acute bony abnormality the cervical spine, biapical airspace disease -08/30 CT head/brain shows no CT evidence of acute intracranial hemorrhage, mild generalized parenchymal atrophy, no evidence of midline shift or mass-effect, moderate size right frontal scalp hematoma -08/30 CTA chest shows no pulmonary embolism, mildly enlarged heart, moderate sized pericardial effusion, diffuse bilateral mixed interstitial and airspace disease with associated atelectasis. -08/30 CT abdomen/pelvis with contrast shows mild fluid-filled distended stomach, dense atherosclerotic calcification of the abdominal aorta, multiple loops of moderately prominent fecalized small bowel, moderate amount of retained stool throughout the colon which may represent possible sequela impaction and constip ation, multiple colonic diverticula, several calcified uterine fibroids, bibasilar mixed interstitial and airspace disease -08/30 bilateral lower extremity Doppler ultrasound shows no evidence of DVT in either lower extremity -08/30 CXR shows moderate bilateral lateral pulmonary opacities improvement -08/30 echocardiogram shows a small to moderate sized circumferential pericardial effusion, no tamponade, left ventricle systolic function normal, LVEF 55 to 60%, mild concentric LVH, trace MR, trace TR, no pulmonary hypertension -09/01 MRI brain showed diffuse restricted diffusion in the cerebral cortex consistent with global anoxic brain injury -08/31 EEG pending -Cardiology placed patient on IV metoprolol and IV nitroglycerin drip -BP monitoring per protocol -PRN hydralazine -Empiric antibiotics per infectious disease -08/30 tracheal aspirate pending -S/P calcium gluconate, insulin, D50 for hyperkalemia in the emergency department and repeated on 08/31 -Bowel regimen -Tube feedings, SSI, Accu-Cheks every 6, hypoglycemic protocol, long-acting insulin (titrate as needed) -Trend CBC,BMP DVT/GI prophylaxis: SCDs to bilateral lower extremities while in bed, PPI, heparin subcu Disposition: ICU The high probability of a clinically significant, sudden or life threatening deterioration of the [multi] system(s) required my full and direct attention, intervention and personal management. The aggregate critical care time was [35] minutes. This time is in addition to time spent performing reported procedures but includes the following: [x] Data Review and interpretation [x] Patient assessment and monitoring of vital signs [x] Documentation [x] Medication orders and management History Interval history: This is 65-year-old female with diabetes mellitus, hypertension, hyperlipidemia, ESRD on HD MWF via left chest permacath, multiple myeloma s/p chemotherapy and stem cell transplant with right chest port, immature right upper extremity aVF and current tobacco abuse who presented to the emergency department on 08/30 s/p cardiac arrest after being found laying in driveway, unresponsive and in asystole by EMS after being called for shortness of breath. Patient was intubated by EMS and received 3 mg epinephrine, calcium and serum bicarbonate and ROSC was eventually achieved after 10 minutes of resuscitation. Recommend emergency department revealed hyperkalemia, CXR showed moderate enlargement of cardiac silhouette, diffuse bilateral mixed interstitial and airspace disease with considerations to pulmonary edema or multifocal infectious process. Patient was admitted to the hospitalist service s/p cardiac arrest with anoxic encephalopathy, ESRD on HD, hypertensive emergency, multifocal pneumonia and a and has a COVID-19 PUI. CCM, nephrology, neurology infectious disease and cardiology were consulted. 08/30: This morning neurology was consulted, patient noted to have leukocytosis, hyperkalemia, metabolic acidosis and hyperglycemia. Patient had hyperphosphatemia, hypomagnesemia also. Patient had hemodialysis today per ne phrology. COVID-19 PCR negative. Patient was in ED holding and admitted to the ICU later during the day. Patient is sedated on fentanyl and propofol. At the time my examination she was assist-control, rate of 28, tidal and 450, 60 PEEP and FiO2 of 60%. 08/31: Patient received hemodialysis however she is hyperkalemia again which was treated with dextrose, insulin and Kionex. Patient received hemodialysis again today per nephrology. Patient continues with with meropenem until blood cultures per infectious disease. MRI brain and EEG pending, lactulose discontinued (which was started due to large stool burden). We will follow up on cultures and BMP. Patient also noted to be hyperglycemic and was started on long acting insulin. Family updated at bedside by nurse ela and Dr. Tereso akers. 09/01: Patient was noted to be hypertensive yesterday evening and today so cardiology will start the patient on a nitroglycerin drip and IV metoprolol. CCM reduced rate. Patient received hemodialysis today and scheduled for MRI brain. Patient noted to be hyperkalemic and follow-up BMP shows a potassium of 4. Patient's MRI brain showed diffuse anoxic brain injury and Dr. Garces updated the family at bedside. 09/02: Patient had an MRI brain yesterday which showed global anoxic brain in jury. At the time of my examination patient was on PCV CPAP with tidal volume 450, FiO2 of 30. Patient is hyperglycemic and insulin dosage increased. Family decision has not been made, Dr. Silva and / Dez updated family. Neurology has signed off Hospitalist Physical - Constitutional Vitals: Temp Pulse Resp BP Pulse Ox 99.7 F H 106 H 24 172/71 97 09/02/20 16:00 09/02/20 15:25 09/02/20 15:00 09/02/20 15:25 09/02/20 15:25 General appearance: Present: other (Unresponsive, on the vent) - EENT Eyes: Present: conjunctival injection. Absent: PERRL, EOM intact ENT: poor dentition - Neck Neck: Absent: masses or JVD, cervical LAD - Respiratory Respiratory effort: normal Respiratory: bilateral: CTA - Cardiovascular Rhythm: regular Heart Sounds: Present: S1 & S2. Absent: systolic murmur, diastolic murmur - Extremities Extremities: no ischemia, pulses intact, pulses symmetrical, normal color Peripheral Pulses: within normal limits - Abdominal General gastrointestinal: soft, non-tender, non-distended, normal bowel sounds - Integumentary Integumentary: Present: dry - Psychiatric Psychiatric: other (Not interactive) - Neurologic Neurologic: other (Pupils not reactive to light, minimal to none gag reflex, no response to painful stimuli) - Allied Health Allied health notes reviewed: nursing, RT, social work HEART Score - HEART Score Troponin: Troponin T 0.085 ng/mL (0.00-0.029) H 08/30/20 00:15 Results - Labs CBC & Chem 7: 08/31/20 05:45 09/02/20 07:12 Labs: Laboratory Last Values WBC 13.1 K/mm3 (4.5-11.0) H 08/31/20 05:45 RBC 2.83 M/mm3 (3.65-5.03) L 08/31/20 05:45 Hgb 9.6 gm/dl (10.1-14.3) L 08/31/20 05:45 Hct 29.8 % (30.3-42.9) L 08/31/20 05:45 MCV 105 fl (79-97) H 08/31/20 05:45 MCH 34 pg (28-32) H 08/31/20 05:45 MCHC 32 % (30-34) 08/31/20 05:45 RDW 18.9 % (13.2-15.2) H 08/31/20 05:45 Plt Count 88 K/mm3 (140-440) L 08/31/20 05:45 Lymph % (Auto) 6.9 % (13.4-35.0) L 08/31/20 05:45 [place] % (Auto) 4.5 % (0.0-7.3) 08/31/20 05:45 Eos % (Auto) 0.0 % (0.0-4.3) 08/31/20 05:45 Baso % (Auto) 0.8 % (0.0-1.8) 08/31/20 05:45 Lymph # (Auto) 0.9 K/mm3 (1.2-5.4) L 08/31/20 05:45 [place] # (Auto) 0.6 K/mm3 (0.0-0.8) 08/31/20 05:45 Eos # (Auto) 0.0 K/mm3 (0.0-0.4) 08/31/20 05:45 Baso # (Auto) 0.1 K/mm3 (0.0-0.1) 08/31/20 05:45 Add Manual Diff Complete 08/30/20 00:15 Total Counted 100 08/30/20 00:15 Seg Neutrophils % 87.8 % (40.0-70.0) H 08/31/20 05:45 Seg Neuts % (Manual) 57.0 % (40.0-70.0) 08/30/20 00:15 Band Neutrophils % 1.0 % 08/30/20 00:15 Lymphocytes % (Manual) 34.0 % (13.4-35.0) 08/30/20 00:15 Monocytes % (Manual) 5.0 % (0.0-7.3) 08/30/20 00:15 Eosinophils % (Manual) 3.0 % (0.0-4.3) 08/30/20 00:15 Nucleated RBC % 1.0 % (0.0-0.9) H 08/30/20 00:15 Seg Neutrophils # 11.5 K/mm3 (1.8-7.7) H 08/31/20 05:45 Seg Neutrophils # Man 5.6 K/mm3 (1.8-7.7) 08/30/20 00:15 Band Neutrophils # 0.1 K/mm3 08/30/20 00:15 Lymphocytes # (Manual) 3.3 K/mm3 (1.2-5.4) 08/30/20 00:15 Abs React Lymphs (Man) 0.0 K/mm3 08/30/20 00:15 Monocytes # (Manual) 0.5 K/mm3 (0.0-0.8) 08/30/20 00:15 Eosinophils # (Manual) 0.3 K/mm3 (0.0-0.4) 08/30/20 00:15 Basophils # (Manual) 0.0 K/mm3 (0.0-0.1) 08/30/20 00:15 Metamyelocytes # 0.0 K/mm3 08/30/20 00:15 Myelocytes # 0.0 K/mm3 08/30/20 00:15 Promyelocytes # 0.0 K/mm3 08/30/20 00:15 Blast Cells # 0.0 K/mm3 08/30/20 00:15 WBC Morphology Not Reportable 08/30/20 00:15 Hypersegmented Neuts Not Reportable 08/30/20 00:15 Hyposegmented Neuts Not Reportable 08/30/20 00:15 Hypogranular Neuts Not Reportable 08/30/20 00:15 Smudge Cells Not Reportable 08/30/20 00:15 Toxic Granulation Not Reportable 08/30/20 00:15 Toxic Vacuolation Not Reportable 08/30/20 00:15 Dohle Bodies Not Reportable 08/30/20 00:15 Pelger-Huet Anomaly Not Reportable 08/30/20 00:15 Lolita Rods Not Reportable 08/30/20 00:15 Platelet Estimate Consistent w auto 08/30/20 00:15 Clumped Platelets Not Reportable 08/30/20 00:15 Plt Clumps, EDTA Not Reportable 08/30/20 00:15 Large Platelets Not Reportable 08/30/20 00:15 Giant Platelets Not Reportable 08/30/20 00:15 Platelet Satelliting Not Reportable 08/30/20 00:15 Plt Morphology Comment Not Reportable 08/30/20 00:15 RBC Morphology Not Reportable 08/30/20 00:15 Dimorphic RBCs Not Reportable 08/30/20 00:15 Polychromasia Not Reportable 08/30/20 00:15 Hypochromasia Not Reportable 08/30/20 00:15 Poikilocytosis Not Reportable 08/30/20 00:15 Anisocytosis 1+ 08/30/20 00:15 Microcytosis Not Reportable 08/30/20 00:15 Macrocytosis Not Reportable 08/30/20 00:15 Spherocytes Not Reportable 08/30/20 00:15 Pappenheimer Bodies Not Reportable 08/30/20 00:15 Sickle Cells Not Reportable 08/30/20 00:15 Target Cells Not Reportable 08/30/20 00:15 Tear Drop Cells Not Reportable 08/30/20 00:15 Ovalocytes Not Reportable 08/30/20 00:15 Helmet Cells Not Reportable 08/30/20 00:15 Anton-Garber Bodies Not Reportable 08/30/20 00:15 [place] Rings Not Reportable 08/30/20 00:15 Jigar Cells Not Reportable 08/30/20 00:15 Bite Cells Not Reportable 08/30/20 00:15 Crenated Cell Not Reportable 08/30/20 00:15 Elliptocytes Not Reportable 08/30/20 00:15 Acanthocytes (Spur) Not Reportable 08/30/20 00:15 Rouleaux Not Reportable 08/30/20 00:15 Hemoglobin C Crystals Not Reportable 08/30/20 00:15 Schistocytes Not Reportable 08/30/20 00:15 Malaria parasites Not Reportable 08/30/20 00:15 Maurice Bodies Not Reportable 08/30/20 00:15 Hem Pathologist Commnt No 08/30/20 00:15 PT 12.8 Sec. (12.2-14.9) 08/31/20 05:45 INR 0.90 (0.87-1.13) 08/31/20 05:45 D-Dimer > 44344 ng/mlDDU (0-234) H 08/30/20 03:10 ABG pH 7.506 pH Units (7.350-7.450) H 09/02/20 03:40 POC ABG pCO2 35.9 mmHg (32.0-48.0) 09/01/20 03:13 ABG pCO2 38.0 mm Hg 09/02/20 03:40 POC ABG pO2 89.7 mmHg (83-108) 09/01/20 03:13 ABG pO2 83.1 mm Hg (80.0-90.0) 09/02/20 03:40 POC ABG HCO3 28.6 09/01/20 03:13 ABG HCO3 29.4 mmol/L (20.0-26.0) H 09/02/20 03:40 ABG O2 Saturation 97.2 % (95.0-99.0) 09/02/20 03:40 ABG O2 Content 11.2 (0.0-44) 09/02/20 03:40 POC ABG Base Excess 5.5 09/01/20 03:13 ABG Base Excess 5.9 mmol/L (-2.0-3.0) H 09/02/20 03:40 ABG Hemoglobin 8.3 gm/dl (12.0-16.0) L 09/02/20 03:40 ABG Oxyhemoglobin 95.9 (94-98) 09/01/20 03:13 ABG Carboxyhemoglobin 1.9 % (0.0-5.0) 09/02/20 03:40 ABG Methemoglobin 0.5 % (0.0-1.5) 09/02/20 03:40 ABG Sodium 134.7 mmol/L (136.0-145.0) L 09/01/20 03:13 ABG Potassium 3.7 mmol/L (3.40-4.50) 09/01/20 03:13 ABG Chloride 94.0 mmol/L (98-107) L 09/01/20 03:13 ABG Glucose 441 mg/dL (65-95) H 09/01/20 03:13 Oxyhemoglobin 94.8 % (95.0-99.0) L 09/02/20 03:40 Carboxyhemoglobin 1.2 (0.5-1.5) 09/01/20 03:13 FiO2 30 % 09/02/20 03:40 FiO2 % 30.0 09/01/20 03:13 Sodium 136 mmol/L (137-145) L 09/02/20 07:12 Potassium 4.0 mmol/L (3.6-5.0) 09/02/20 07:12 Chloride 91.6 mmol/L (98-107) L 09/02/20 07:12 Carbon Dioxide 29 mmol/L (22-30) 09/02/20 07:12 Anion Gap 19 mmol/L 09/02/20 07:12 BUN 52 mg/dL (7-17) H 09/02/20 07:12 Creatinine 5.5 mg/dL (0.6-1.2) H D 09/02/20 07:12 Estimated GFR 9 ml/min 09/02/20 07:12 BUN/Creatinine Ratio 9 % 09/02/20 07:12 Glucose 176 mg/dL (65-100) H 09/02/20 07:12 POC Glucose 252 mg/dL (70-105) H 09/02/20 13:03 Calcium 7.7 mg/dL (8.4-10.2) L 09/02/20 07:12 Phosphorus 11.50 mg/dL (2.5-4.5) H 08/30/20 00:15 Magnesium 3.80 mg/dL (1.7-2.3) H 08/30/20 00:15 Ferritin 830.0 ng/mL (10.0-200.0) H 08/30/20 03:10 Total Bilirubin 0.40 mg/dL (0.1-1.2) 08/30/20 15:03 AST 68 units/L (5-40) H 08/30/20 15:03 ALT 41 units/L (7-56) 08/30/20 15:03 Alkaline Phosphatase 364 units/L (35-129) H 08/30/20 15:03 Lactate Dehydrogenase 400 units/L (91-180) H 08/30/20 03:10 Troponin T 0.085 ng/mL (0.00-0.029) H 08/30/20 00:15 C-Reactive Protein 0.20 mg/dL (0.00-1.30) 08/30/20 03:10 Total Protein 6.4 g/dL (6.3-8.2) 08/30/20 15:03 Albumin 3.7 g/dL (3.9-5) L 08/30/20 15:03 Albumin/Globulin Ratio 1.4 % 08/30/20 15:03 Triglycerides 61 mg/dL (2-149) 08/30/20 00:15 Cholesterol 150 mg/dL (50-199) 08/30/20 00:15 LDL Cholesterol Direct 71 mg/dL (50-130) 08/30/20 00:15 HDL Cholesterol 66 mg/dL (40-59) H 08/30/20 00:15 Cholesterol/HDL Ratio 2.27 % 08/30/20 00:15 Procalcitonin 4.16 ng/mL (<0.15) 08/30/20 03:10 Arterial Blood Glucose 441 mg/dL (65-95) H 09/01/20 03:13 Arterial Blood Ionized Calcium 3.8 mg/dL (4.6-5.3) L 09/01/20 03:13 Coronavirus (PCR) Negative (Negative) 08/30/20 Unknown Hepatitis A IgM Ab Non-reactive (NonReactive) 08/30/20 07:35 Hep Bs Antigen Non-reactive (Negative) 08/30/20 07:35 Hep B Core IgM Ab Non-reactive (NonReactive) 08/30/20 07:35 Hepatitis C Antibody Non-reactive (NonReactive) 08/30/20 07:35 Microbiology: Microbiology 08/30/20 18:15 Peripheral/Venous Blood Culture - Preliminary NO GROWTH AFTER 48 HOURS 08/30/20 18:15 Peripheral/Venous Blood Culture - Preliminary NO GROWTH AFTER 48 HOURS Johns/IV: Voiding Method Incontinent Active Medications - Current Medications Current Medications: Generic Name Dose Route Start Last Admin Trade Name Freq PRN Reason Stop Dose Admin Acetaminophen 650 mg 09/01/20 00:27 09/02/20 09:47 Acetaminophen 325 Mg/10.15 Ml Oral Liqd Unit Dose FEEDTUBE 650 mg Q6H PRN Administration Non Cardiac Pain or Temp>100.5 Lipase/Protease/Amylase 1 each 08/30/20 14:27 Lipase 10,500/Protease 25,000/Amylase 43,750 (Units) Dr Duran FEEDTUBE PRN PRN For Clogged Feeding Tube Dextrose 50 ml 08/30/20 19:48 Dextrose 50% In Water (25gm) 50 Ml Syringe IV Q30MIN PRN Hypoglycemia Protocol Famotidine 20 mg 09/02/20 10:00 09/02/20 09:31 Famotidine 20 Mg Tab PO 20 mg DAILY ANIYAH Administration Fentanyl 50 mcg 08/30/20 14:05 Fentanyl 100 Mcg/2 Ml Inj IV Q10MIN PRN ANALGESIA Heparin Sodium (Porcine) 5,000 unit 08/30/20 06:00 09/02/20 13:26 Heparin 5,000 Unit/1 Ml Vial SUB-Q 5,000 unit Q8HR ANIYAH Administration Hydralazine HCl 10 mg 08/31/20 18:14 08/31/20 21:48 Hydralazine 20 Mg/1 Ml Inj IV 10 mg Q4HR PRN Administration Hypertension Hydrophilic Ointment 1 applic 08/30/20 14:05 Lip Therapy Vaseline TP Q2HR PRN Dry Lips Sodium Chloride 100 mls @ 999 mls/hr 08/30/20 09:00 Nacl 0.9% IV ARMIDA PRN Hypotension Propofol 1,000 mg in 100 mls @ 2.381 mls/hr 08/30/20 13:00 08/31/20 16:39 Diprivan 10 Mg/Ml IV 0 mcg/kg/min TITR ANIYAH 0 mls/hr Titration Protocol 5 MCG/KG/MIN Meropenem 500 mg in 50 mls @ 50 mls/hr 08/30/20 14:00 09/02/20 13:43 Merrem/Ns 500 Mg/50 Ml IV 50 mls/hr Q24H ANIYAH Administration Fentanyl Citrate 2,000 mcg in 100 mls @ 3.969 mls/hr 08/30/20 15:00 09/01/20 15:41 Fentanyl Drip Premix IV 0 mcg/kg/hr TITR ANIYAH 0 mls/hr Titration Protocol 1 MCG/KG/HR Nitroglycerin/Dextrose 50 mg in 250 mls @ 6 mls/hr 09/01/20 11:00 09/02/20 13:42 Tridil Drip 50mg/250ml IV 30 mcg/min TITR ANIYAH 9 mls/hr Administration Protocol 20 MCG/MIN Insulin Glargine 25 units 09/03/20 10:00 Insulin Glargine 100 Units/Ml SUB-Q DAILY ANIYAH Insulin Human Regular 0 units 09/01/20 10:00 09/02/20 13:26 Insulin Regular, Human 100 Units/1 Ml SUB-Q 6 units Q4HR ANIYAH Administration Protocol Magnesium Hydroxide 30 ml 08/30/20 04:41 Magnesium Hydroxide (Mom) Oral Liqd Udc PO Q4H PRN Constipation Metoprolol Tartrate 5 mg 09/02/20 11:00 09/02/20 13:27 Metoprolol Tartrate 5 Mg/5 Ml Inj IV 5 mg Q4HR ANYIAH Administration Multi-Ingred Cream/Lotion/Oil/Oint 1 applic 08/30/20 14:05 08/31/20 01:17 Mineral Oil/Petrolatum, White Ophth Oint 3.5 Gm OU 1 applic Q4HR PRN Administration Dry Eye(s) Ondansetron HCl 4 mg 08/30/20 04:41 Ondansetron 4 Mg/2 Ml Inj IV Q8H PRN Nausea And Vomiting Senna/Docusate Sodium 1 tab 08/30/20 22:00 09/02/20 09:32 Sennosides/Docusate Sodium 8.6/50 Mg Tab FEEDTUBE Not Given BID ANIYAH Simple Syrup 15 ml 08/30/20 14:27 Simple Syrup 15 Ml FEEDTUBE PRN PRN Hypoglycemia Simple Syrup 30 ml 08/30/20 14:27 Simple Syrup 15 Ml FEEDTUBE PRN PRN Hypoglycemia Sodium Bicarbonate 325 mg 08/30/20 14:27 Sodium Bicarbonate 325 Mg Tab FEEDTUBE PRN PRN For Clogged Feeding Tube Sodium Chloride 10 ml 08/30/20 10:00 09/02/20 10:52 Sodium Chloride 0.9% 10 Ml Flush Syringe IV 10 ml BID ANIYAH Administration Sodium Chloride 10 ml 08/30/20 04:41 Sodium Chloride 0.9% 10 Ml Flush Syringe IV PRN PRN LINE FLUSH Nutrition/Malnutrition Assess - Dietary Evaluation Nutrition/Malnutrition Findings: Nutrition Notes Start: 08/30/20 07:40 Freq: Status: Active Protocol: Document 09/01/20 12:30 MK (Rec: 09/01/20 12:35 MK [id number]) Nutrition Notes Initial or Follow up Reassessment Current Diagnosis CKD (stage V CKD),Diabetes, Hypertension Other Pertinent Diagnosis pneu, cardiac arrest, on HD, COVID PUI Current Diet Nepro 1.8 at 35 ml/hr Labs/Tests No new labs Pertinent Medications Reviewed Height 5 ft 3 in Weight 66.3 kg B[place]y Body Weight (kg) 52.27 BMI 25.9 Weight change and time frame Wt change noted, pt wt seems to fluctuate frequently ( highest wt 79kg, lowest wt 64kg) Weight Status Overweight Subjective/Other Information FU for TF start and tolerance. Per RN, pt tolerating TF at goal. Stool softener stopped due to liquid BM. Pt has abrasion on scarum. Trauma Absent Minimum of two criteria No physical signs of malnutrition #1 Nutrition Diagnosis Inadequate oral intake Diagnosis Progress(for reassessment Continues documentation) Is patient on ventilator? Yes Is Patient Ambulatory and/or Out of Bed No REE-([facility]-confined to bed) 1412.088 Calculation Used for Recommendations [facility] Additional Notes Protein: (1.2-2g/kg) 80-133g Fluid: 1 ml/kcal or per MD Nutrition Intervention Change Diet Order: Continue Nutrition Support: Nepro 1.8 at 35 ml/hr Flush 150 ml q4h or per MD Kcal 1,512 Protein (gm) 68 Carbohydrates (gm) 135 Fat (gm) 81 Fluid (mL) 611 Goal #1 Meet at least 75% of protein and energy needs via TF Anticipated Discharge Needs: Unable to determine at this time Follow-Up By: 09/03/20 Additional Comments FU for TF tolerance, wt <CAIT GARCES - Last Filed: 09/02/20 16:49> Assessment and Plan Assessment and plan: Agree with assessment and plan as outlined as above by nurse practitioner. I personally examined the patient, chart review, and spoke with the nurse practitioner pertaining to the plan for the patient. Family at the bedside, neurology has contacted family and stated that the patient has a global anoxic brain injury. Case management has confirmed with the family, they want inpatient hospice. Referrals have been sent out. Hospitalist Physical - Constitutional Vitals: Temp Pulse Resp BP Pulse Ox 99.7 F H 106 H 24 172/71 97 09/02/20 16:00 09/02/20 15:25 09/02/20 15:00 09/02/20 15:25 09/02/20 15:25 HEART Score - HEART Score Troponin: Troponin T 0.085 ng/mL (0.00-0.029) H 08/30/20 00:15 Results - Labs CBC & Chem 7: 08/31/20 05:45 09/02/20 07:12 Labs: Laboratory Last Values WBC 13.1 K/mm3 (4.5-11.0) H 08/31/20 05:45 RBC 2.83 M/mm3 (3.65-5.03) L 08/31/20 05:45 Hgb 9.6 gm/dl (10.1-14.3) L 08/31/20 05:45 Hct 29.8 % (30.3-42.9) L 08/31/20 05:45 MCV 105 fl (79-97) H 08/31/20 05:45 MCH 34 pg (28-32) H 08/31/20 05:45 MCHC 32 % (30-34) 08/31/20 05:45 RDW 18.9 % (13.2-15.2) H 08/31/20 05:45 Plt Count 88 K/mm3 (140-440) L 08/31/20 05:45 Lymph % (Auto) 6.9 % (13.4-35.0) L 08/31/20 05:45 [place] % (Auto) 4.5 % (0.0-7.3) 08/31/20 05:45 Eos % (Auto) 0.0 % (0.0-4.3) 08/31/20 05:45 Baso % (Auto) 0.8 % (0.0-1.8) 08/31/20 05:45 Lymph # (Auto) 0.9 K/mm3 (1.2-5.4) L 08/31/20 05:45 [place] # (Auto) 0.6 K/mm3 (0.0-0.8) 08/31/20 05:45 Eos # (Auto) 0.0 K/mm3 (0.0-0.4) 08/31/20 05:45 Baso # (Auto) 0.1 K/mm3 (0.0-0.1) 08/31/20 05:45 Add Manual Diff Complete 08/30/20 00:15 Total Counted 100 08/30/20 00:15 Seg Neutrophils % 87.8 % (40.0-70.0) H 08/31/20 05:45 Seg Neuts % (Manual) 57.0 % (40.0-70.0) 08/30/20 00:15 Band Neutrophils % 1.0 % 08/30/20 00:15 Lymphocytes % (Manual) 34.0 % (13.4-35.0) 08/30/20 00:15 Monocytes % (Manual) 5.0 % (0.0-7.3) 08/30/20 00:15 Eosinophils % (Manual) 3.0 % (0.0-4.3) 08/30/20 00:15 Nucleated RBC % 1.0 % (0.0-0.9) H 08/30/20 00:15 Seg Neutrophils # 11.5 K/mm3 (1.8-7.7) H 08/31/20 05:45 Seg Neutrophils # Man 5.6 K/mm3 (1.8-7.7) 08/30/20 00:15 Band Neutrophils # 0.1 K/mm3 08/30/20 00:15 Lymphocytes # (Manual) 3.3 K/mm3 (1.2-5.4) 08/30/20 00:15 Abs React Lymphs (Man) 0.0 K/mm3 08/30/20 00:15 Monocytes # (Manual) 0.5 K/mm3 (0.0-0.8) 08/30/20 00:15 Eosinophils # (Manual) 0.3 K/mm3 (0.0-0.4) 08/30/20 00:15 Basophils # (Manual) 0.0 K/mm3 (0.0-0.1) 08/30/20 00:15 Metamyelocytes # 0.0 K/mm3 08/30/20 00:15 Myelocytes # 0.0 K/mm3 08/30/20 00:15 Promyelocytes # 0.0 K/mm3 08/30/20 00:15 Blast Cells # 0.0 K/mm3 08/30/20 00:15 WBC Morphology Not Reportable 08/30/20 00:15 Hypersegmented Neuts Not Reportable 08/30/20 00:15 Hyposegmented Neuts Not Reportable 08/30/20 00:15 Hypogranular Neuts Not Reportable 08/30/20 00:15 Smudge Cells Not Reportable 08/30/20 00:15 Toxic Granulation Not Reportable 08/30/20 00:15 Toxic Vacuolation Not Reportable 08/30/20 00:15 Dohle Bodies Not Reportable 08/30/20 00:15 Pelger-Huet Anomaly Not Reportable 08/30/20 00:15 Lolita Rods Not Reportable 08/30/20 00:15 Platelet Estimate Consistent w auto 08/30/20 00:15 Clumped Platelets Not Reportable 08/30/20 00:15 Plt Clumps, EDTA Not Reportable 08/30/20 00:15 Large Platelets Not Reportable 08/30/20 00:15 Giant Platelets Not Reportable 08/30/20 00:15 Platelet Satelliting Not Reportable 08/30/20 00:15 Plt Morphology Comment Not Reportable 08/30/20 00:15 RBC Morphology Not Reportable 08/30/20 00:15 Dimorphic RBCs Not Reportable 08/30/20 00:15 Polychromasia Not Reportable 08/30/20 00:15 Hypochromasia Not Reportable 08/30/20 00:15 Poikilocytosis Not Reportable 08/30/20 00:15 Anisocytosis 1+ 08/30/20 00:15 Microcytosis Not Reportable 08/30/20 00:15 Macrocytosis Not Reportable 08/30/20 00:15 Spherocytes Not Reportable 08/30/20 00:15 Pappenheimer Bodies Not Reportable 08/30/20 00:15 Sickle Cells Not Reportable 08/30/20 00:15 Target Cells Not Reportable 08/30/20 00:15 Tear Drop Cells Not Reportable 08/30/20 00:15 Ovalocytes Not Reportable 08/30/20 00:15 Helmet Cells Not Reportable 08/30/20 00:15 Anton-Garber Bodies Not Reportable 08/30/20 00:15 [place] Rings Not Reportable 08/30/20 00:15 [place] Cells Not Reportable 08/30/20 00:15 Bite Cells Not Reportable 08/30/20 00:15 Crenated Cell Not Reportable 08/30/20 00:15 Elliptocytes Not Reportable 08/30/20 00:15 Acanthocytes (Spur) Not Reportable 08/30/20 00:15 Rouleaux Not Reportable 08/30/20 00:15 Hemoglobin C Crystals Not Reportable 08/30/20 00:15 Schistocytes Not Reportable 08/30/20 00:15 Malaria parasites Not Reportable 08/30/20 00:15 Maurice Bodies Not Reportable 08/30/20 00:15 Hem Pathologist Commnt No 08/30/20 00:15 PT 12.8 Sec. (12.2-14.9) 08/31/20 05:45 INR 0.90 (0.87-1.13) 08/31/20 05:45 D-Dimer > 79173 ng/mlDDU (0-234) H 08/30/20 03:10 ABG pH 7.506 pH Units (7.350-7.450) H 09/02/20 03:40 POC ABG pCO2 35.9 mmHg (32.0-48.0) 09/01/20 03:13 ABG pCO2 38.0 mm Hg 09/02/20 03:40 POC ABG pO2 89.7 mmHg (83-108) 09/01/20 03:13 ABG pO2 83.1 mm Hg (80.0-90.0) 09/02/20 03:40 POC ABG HCO3 28.6 09/01/20 03:13 ABG HCO3 29.4 mmol/L (20.0-26.0) H 09/02/20 03:40 ABG O2 Saturation 97.2 % (95.0-99.0) 09/02/20 03:40 ABG O2 Content 11.2 (0.0-44) 09/02/20 03:40 POC ABG Base Excess 5.5 09/01/20 03:13 ABG Base Excess 5.9 mmol/L (-2.0-3.0) H 09/02/20 03:40 ABG Hemoglobin 8.3 gm/dl (12.0-16.0) L 09/02/20 03:40 ABG Oxyhemoglobin 95.9 (94-98) 09/01/20 03:13 ABG Carboxyhemoglobin 1.9 % (0.0-5.0) 09/02/20 03:40 ABG Methemoglobin 0.5 % (0.0-1.5) 09/02/20 03:40 ABG Sodium 134.7 mmol/L (136.0-145.0) L 09/01/20 03:13 ABG Potassium 3.7 mmol/L (3.40-4.50) 09/01/20 03:13 ABG Chloride 94.0 mmol/L (98-107) L 09/01/20 03:13 ABG Glucose 441 mg/dL (65-95) H 09/01/20 03:13 Oxyhemoglobin 94.8 % (95.0-99.0) L 09/02/20 03:40 Carboxyhemoglobin 1.2 (0.5-1.5) 09/01/20 03:13 FiO2 30 % 09/02/20 03:40 FiO2 % 30.0 09/01/20 03:13 Sodium 136 mmol/L (137-145) L 09/02/20 07:12 Potassium 4.0 mmol/L (3.6-5.0) 09/02/20 07:12 Chloride 91.6 mmol/L (98-107) L 09/02/20 07:12 Carbon Dioxide 29 mmol/L (22-30) 09/02/20 07:12 Anion Gap 19 mmol/L 09/02/20 07:12 BUN 52 mg/dL (7-17) H 09/02/20 07:12 Creatinine 5.5 mg/dL (0.6-1.2) H D 09/02/20 07:12 Estimated GFR 9 ml/min 09/02/20 07:12 BUN/Creatinine Ratio 9 % 09/02/20 07:12 Glucose 176 mg/dL (65-100) H 09/02/20 07:12 POC Glucose 252 mg/dL (70-105) H 09/02/20 13:03 Calcium 7.7 mg/dL (8.4-10.2) L 09/02/20 07:12 Phosphorus 11.50 mg/dL (2.5-4.5) H 08/30/20 00:15 Magnesium 3.80 mg/dL (1.7-2.3) H 08/30/20 00:15 Ferritin 830.0 ng/mL (10.0-200.0) H 08/30/20 03:10 Total Bilirubin 0.40 mg/dL (0.1-1.2) 08/30/20 15:03 AST 68 units/L (5-40) H 08/30/20 15:03 ALT 41 units/L (7-56) 08/30/20 15:03 Alkaline Phosphatase 364 units/L (35-129) H 08/30/20 15:03 Lactate Dehydrogenase 400 units/L (91-180) H 08/30/20 03:10 Troponin T 0.085 ng/mL (0.00-0.029) H 08/30/20 00:15 C-Reactive Protein 0.20 mg/dL (0.00-1.30) 08/30/20 03:10 Total Protein 6.4 g/dL (6.3-8.2) 08/30/20 15:03 Albumin 3.7 g/dL (3.9-5) L 08/30/20 15:03 Albumin/Globulin Ratio 1.4 % 08/30/20 15:03 Triglycerides 61 mg/dL (2-149) 08/30/20 00:15 Cholesterol 150 mg/dL (50-199) 08/30/20 00:15 LDL Cholesterol Direct 71 mg/dL (50-130) 08/30/20 00:15 HDL Cholesterol 66 mg/dL (40-59) H 08/30/20 00:15 Cholesterol/HDL Ratio 2.27 % 08/30/20 00:15 Procalcitonin 4.16 ng/mL (<0.15) 08/30/20 03:10 Arterial Blood Glucose 441 mg/dL (65-95) H 09/01/20 03:13 Arterial Blood Ionized Calcium 3.8 mg/dL (4.6-5.3) L 09/01/20 03:13 Coronavirus (PCR) Negative (Negative) 08/30/20 Unknown Hepatitis A IgM Ab Non-reactive (NonReactive) 08/30/20 07:35 Hep Bs Antigen Non-reactive (Negative) 08/30/20 07:35 Hep B Core IgM Ab Non-reactive (NonReactive) 08/30/20 07:35 Hepatitis C Antibody Non-reactive (NonReactive) 08/30/20 07:35 Microbiology: Microbiology 08/30/20 18:15 Peripheral/Venous Blood Culture - Preliminary NO GROWTH AFTER 48 HOURS 08/30/20 18:15 Peripheral/Venous Blood Culture - Preliminary NO GROWTH AFTER 48 HOURS Johns/IV: Voiding Method Incontinent Active Medications - Current Medications Current Medications: Generic Name Dose Route Start Last Admin Trade Name Freq PRN Reason Stop Dose Admin Acetaminophen 650 mg 09/01/20 00:27 09/02/20 09:47 Acetaminophen 325 Mg/10.15 Ml Oral Liqd Unit Dose FEEDTUBE 650 mg Q6H PRN Administration Non Cardiac Pain or Temp>100.5 Lipase/Protease/Amylase 1 each 08/30/20 14:27 Lipase 10,500/Protease 25,000/Amylase 43,750 (Units) Dr Duran FEEDTUBE PRN PRN For Clogged Feeding Tube Dextrose 50 ml 08/30/20 19:48 Dextrose 50% In Water (25gm) 50 Ml Syringe IV Q30MIN PRN Hypoglycemia Protocol Famotidine 20 mg 09/02/20 10:00 09/02/20 09:31 Famotidine 20 Mg Tab PO 20 mg DAILY ANIYAH Administration Fentanyl 50 mcg 08/30/20 14:05 Fentanyl 100 Mcg/2 Ml Inj IV Q10MIN PRN ANALGESIA Heparin Sodium (Porcine) 5,000 unit 08/30/20 06:00 09/02/20 13:26 Heparin 5,000 Unit/1 Ml Vial SUB-Q 5,000 unit Q8HR ANIYAH Administration Hydralazine HCl 10 mg 08/31/20 18:14 08/31/20 21:48 Hydralazine 20 Mg/1 Ml Inj IV 10 mg Q4HR PRN Administration Hypertension Hydrophilic Ointment 1 applic 08/30/20 14:05 Lip Therapy Vaseline TP Q2HR PRN Dry Lips Sodium Chloride 100 mls @ 999 mls/hr 08/30/20 09:00 Nacl 0.9% IV ARMIDA PRN Hypotension Propofol 1,000 mg in 100 mls @ 2.381 mls/hr 08/30/20 13:00 08/31/20 16:39 Diprivan 10 Mg/Ml IV 0 mcg/kg/min TITR ANIYAH 0 mls/hr Titration Protocol 5 MCG/KG/MIN Meropenem 500 mg in 50 mls @ 50 mls/hr 08/30/20 14:00 09/02/20 13:43 Merrem/Ns 500 Mg/50 Ml IV 50 mls/hr Q24H ANIYAH Administration Fentanyl Citrate 2,000 mcg in 100 mls @ 3.969 mls/hr 08/30/20 15:00 09/01/20 15:41 Fentanyl Drip Premix IV 0 mcg/kg/hr TITR ANIYAH 0 mls/hr Titration Protocol 1 MCG/KG/HR Nitroglycerin/Dextrose 50 mg in 250 mls @ 6 mls/hr 09/01/20 11:00 09/02/20 13:42 Tridil Drip 50mg/250ml IV 30 mcg/min TITR ANIYAH 9 mls/hr Administration Protocol 20 MCG/MIN Insulin Glargine 25 units 09/03/20 10:00 Insulin Glargine 100 Units/Ml SUB-Q DAILY [facility] Insulin Human Regular 0 units 09/01/20 10:00 09/02/20 13:26 Insulin Regular, Human 100 Units/1 Ml SUB-Q 6 units Q4HR [facility] Administration Protocol Magnesium Hydroxide 30 ml 08/30/20 04:41 Magnesium Hydroxide (Mom) Oral Liqd Udc PO Q4H PRN Constipation Metoprolol Tartrate 5 mg 09/02/20 11:00 09/02/20 13:27 Metoprolol Tartrate 5 Mg/5 Ml Inj IV 5 mg Q4HR ANIYAH Administration Multi-Ingred Cream/Lotion/Oil/Oint 1 applic 08/30/20 14:05 08/31/20 01:17 Mineral Oil/Petrolatum, White Ophth Oint 3.5 Gm OU 1 applic Q4HR PRN Administration Dry Eye(s) Ondansetron HCl 4 mg 08/30/20 04:41 Ondansetron 4 Mg/2 Ml Inj IV Q8H PRN Nausea And Vomiting Senna/Docusate Sodium 1 tab 08/30/20 22:00 09/02/20 09:32 Sennosides/Docusate Sodium 8.6/50 Mg Tab FEEDTUBE Not Given BID ANIYAH Simple Syrup 15 ml 08/30/20 14:27 Simple Syrup 15 Ml FEEDTUBE PRN PRN Hypoglycemia Simple Syrup 30 ml 08/30/20 14:27 Simple Syrup 15 Ml FEEDTUBE PRN PRN Hypoglycemia Sodium Bicarbonate 325 mg 08/30/20 14:27 Sodium Bicarbonate 325 Mg Tab FEEDTUBE PRN PRN For Clogged Feeding Tube Sodium Chloride 10 ml 08/30/20 10:00 09/02/20 10:52 Sodium Chloride 0.9% 10 Ml Flush Syringe IV 10 ml BID ANIYAH Administration Sodium Chloride 10 ml 08/30/20 04:41 Sodium Chloride 0.9% 10 Ml Flush Syringe IV PRN PRN LINE FLUSH Nutrition/Malnutrition Assess - Dietary Evaluation Nutrition/Malnutrition Findings: Nutrition Notes Start: 08/30/20 07:40 Freq: Status: Active Protocol: Document 09/01/20 12:30 (Rec: 09/01/20 12:35 [email or web address]) Nutrition Notes Initial or Follow up Reassessment Current Diagnosis CKD (stage V CKD),Diabetes, Hypertension Other Pertinent Diagnosis pneu, cardiac arrest, on HD, COVID PUI Current Diet Nepro 1.8 at 35 ml/hr Labs/Tests No new labs Pertinent Medications Reviewed Height 5 ft 3 in Weight 66.3 kg Boody Body Weight (kg) 52.27 BMI 25.9 Weight change and time frame Wt change noted, pt wt seems to fluctuate frequently ( highest wt 79kg, lowest wt 64kg) Weight Status Overweight Subjective/Other Information FU for TF start and tolerance. Per RN, pt tolerating TF at goal. Stool softener stopped due to liquid BM. Pt has abrasion on scarum. Trauma Absent Minimum of two criteria No physical signs of malnutrition #1 Nutrition Diagnosis Inadequate oral intake Diagnosis Progress(for reassessment Continues documentation) Is patient on ventilator? Yes Is Patient Ambulatory and/or Out of Bed No [facility] [phone] Calculation Used for Recommendations [facility] Additional Notes Protein: (1.2-2g/kg) 80-133g Fluid: 1 ml/kcal or per MD Nutrition Intervention Change Diet Order: Continue Nutrition Support: Nepro 1.8 at 35 ml/hr Flush 150 ml q4h or per MD Kcal 1,512 Protein (gm) 68 Carbohydrates (gm) 135 Fat (gm) 81 Fluid (mL) 611 Goal #1 Meet at least 75% of protein and energy needs via TF Anticipated Discharge Needs: Unable to determine at this time Follow-Up By: 09/03/20 Additional Comments FU for TF tolerance, wt
[2020-09-02] MEDS ORDERED: INSULIN GLARGINE 100 UNITS/ML SUB-Q ONE (18:00)
[2020-09-03] MEDS: ACETAMINOPHEN 325 MG/10.15 ML ORAL LIQD UNIT DOSE FEEDTUBE PRN (00:38)
[2020-09-03] MEDS: METOPROLOL TARTRATE 5 MG/5 ML INJ IV SCH ×2 (02:07→06:20)
[2020-09-03] MEDS: INSULIN REGULAR, HUMAN 100 UNITS/1 ML SUB-Q SCH ×6 (02:56→21:24)
[2020-09-03 04:42] LABS: Hematocrit 25.1 % (30.3-42.9); Hemoglobin 8.3 gm/dl (10.1-14.3); Mean Corpuscular HGB Conc 33 % (30-34); Mean Corpuscular Volume 107 fl (79-97); Platelet Count 87 K/mm3 (140-440); Red Blood Count 2.35 M/mm3 (3.65-5.03); Red Cell Distribution Width 18.5 % (13.2-15.2)
[2020-09-03 04:57] LABS: Calcium 7.1 mg/dL (8.4-10.2)
[2020-09-03] MEDS: HEPARIN 5,000 UNIT/1 ML VIAL SUB-Q SCH ×3 (06:20→21:23)
[2020-09-03] MEDS: NITROGLYCERIN DRIP 50 MG/250 ML BOTTLE IV SCH (08:55)
[2020-09-03] MEDS ORDERED: INSULIN GLARGINE 100 UNITS/ML SUB-Q SCH (10:00)
--- NOTE | 2020-09-03 10:12 | Progress Note ---
Assessment and Plan - Patient Problems (1) Cardiopulmonary arrest Current Visit: Yes Status: Acute Plan to address problem: We will discontinue intravenous nitroglycerin, and use amlodipine via the NG tube for hypertension management. Metoprolol will be switched to oral in preparation for her eventual transfer to hospice. Subjective Date of service: 09/03/20 Principal diagnosis: Cardiac arrest; Ac. hypoxemic resp failure; PNA; ESRD; NSTEMI; Hyperkalemia Interval history: Patient remains unresponsive, on the vent, currently on hemodialysis treatment. There is an NG tube in place. I was informed that she is planned to be transferred to hospice for continued supportive care. Objective Vital Signs Temp Pulse Pulse Resp BP Pulse Ox Pulse Ox 09/03/20 10:00 97 H 27 H 187/61 100 09/03/20 09:46 102 H 28 H 135/54 100 09/03/20 09:45 101 H 174/52 09/03/20 09:42 100 H 135/54 09/03/20 09:35 98.7 F 100 H 28 H 147/49 100 09/03/20 09:30 105 H 28 H 155/50 100 09/03/20 09:16 101 H 24 146/50 100 09/03/20 09:00 101 H 26 H 151/51 100 09/03/20 08:46 101 H 27 H 150/51 100 09/03/20 08:30 99 H 25 H 159/61 100 09/03/20 08:20 98 H 26 H 159/61 100 09/03/20 08:16 95 H 25 H 152/51 100 09/03/20 08:00 76 98 H 21 154/49 100 09/03/20 07:46 94 H 22 155/50 100 09/03/20 07:30 93 H 22 144/46 100 09/03/20 07:16 95 H 23 139/49 100 09/03/20 07:00 99.4 F 96 H 22 128/49 100 09/03/20 06:45 87 22 140/58 100 09/03/20 06:30 92 H 21 142/59 100 09/03/20 06:20 103 H 141/60 09/03/20 06:15 98 H 22 141/61 100 09/03/20 06:00 103 H 22 128/56 100 09/03/20 05:45 101 H 21 153/65 100 09/03/20 05:30 98 H 20 145/57 100 09/03/20 05:15 102 H 21 139/46 100 09/03/20 05:00 99 H 25 H 135/50 100 09/03/20 04:45 101 H 21 143/59 100 09/03/20 04:30 101 H 20 151/55 100 09/03/20 04:15 99 H 19 140/55 100 09/03/20 04:00 99 H 98 H 18 133/55 100 09/03/20 03:54 99 H 135/55 100 09/03/20 03:46 96 H 19 133/55 100 09/03/20 03:30 101 H 19 123/53 100 09/03/20 03:16 98 H 19 118/52 100 09/03/20 03:10 99.3 F 09/03/20 03:00 96 H 20 123/47 100 09/03/20 02:45 98 H 22 122/48 100 09/03/20 02:30 96 H 17 119/52 100 09/03/20 02:16 99 H 17 122/57 100 09/03/20 02:07 99 H 130/38 09/03/20 02:00 98 H 22 114/46 100 09/03/20 01:46 96 H 21 130/38 100 09/03/20 01:30 96 H 20 135/55 100 09/03/20 01:16 96 H 21 135/55 100 09/03/20 01:00 96 H 25 H 134/51 100 09/03/20 00:45 105 H 22 136/51 100 09/03/20 00:30 108 H 22 146/50 100 09/03/20 00:15 107 H 20 145/57 100 09/03/20 00:00 108 H 110 H 21 138/48 100 09/02/20 23:45 105 H 22 133/49 100 09/02/20 23:41 101.6 F H 09/02/20 23:30 107 H 25 H 141/48 100 09/02/20 23:16 107 H 22 152/44 100 09/02/20 23:06 105 H 25 H 131/51 100 09/02/20 23:00 105 H 21 131/51 100 09/02/20 22:46 107 H 26 H 141/45 100 09/02/20 22:30 104 H 24 130/62 100 09/02/20 22:16 99 H 22 147/60 100 09/02/20 22:00 112 H 24 130/62 09/02/20 21:55 112 H 120/52 09/02/20 21:45 113 H 24 120/52 09/02/20 21:30 112 H 24 132/52 09/02/20 21:15 112 H 24 129/53 09/02/20 21:00 123 H 23 147/62 09/02/20 20:46 123 H 24 132/52 09/02/20 20:30 110 H 25 H 146/54 09/02/20 20:15 109 H 23 149/63 09/02/20 20:00 110 H 110 H 24 162/72 09/02/20 19:53 111 H 129/59 09/02/20 19:51 98.3 F 09/02/20 19:45 111 H 25 H 129/59 09/02/20 19:30 111 H 23 160/59 09/02/20 19:16 111 H 26 H 145/58 09/02/20 19:00 111 H 27 H 164/59 09/02/20 18:46 110 H 24 164/59 09/02/20 18:30 108 H 26 H 165/48 09/02/20 18:16 108 H 24 163/55 09/02/20 18:00 105 H 27 H 150/51 09/02/20 17:46 104 H 26 H 160/54 09/02/20 17:30 113 H 27 H 174/56 09/02/20 17:16 112 H 25 H 174/56 09/02/20 17:00 111 H 27 H 165/55 09/02/20 16:46 107 H 28 H 127/54 09/02/20 16:30 109 H 21 179/74 09/02/20 16:15 106 H 24 189/79 09/02/20 16:00 99.7 F H 106 H 104 H 27 H 184/72 09/02/20 15:45 104 H 25 H 182/70 09/02/20 15:30 105 H 26 H 197/85 09/02/20 15:25 106 H 172/71 97 09/02/20 15:15 102 H 26 H 172/71 96 09/02/20 15:00 101 H 24 164/71 96 09/02/20 14:45 102 H 20 136/55 96 09/02/20 14:30 99 H 28 H 150/63 96 09/02/20 14:15 96 H 30 H 180/62 95 09/02/20 14:00 98 H 29 H 156/65 95 09/02/20 13:45 98 H 31 H 161/69 95 09/02/20 13:30 95 H 29 H 149/62 95 09/02/20 13:16 98 H 27 H 163/52 95 09/02/20 13:00 102 H 27 H 153/57 95 09/02/20 12:45 101 H 31 H 146/64 95 09/02/20 12:30 100 H 28 H 142/61 97 09/02/20 12:15 101 H 28 H 143/61 94 09/02/20 12:00 103 H 104 H 28 H 130/56 95 09/02/20 11:45 102 H 28 H 140/56 95 09/02/20 11:32 102 H 27 H 134/57 98 09/02/20 11:30 102 H 29 H 134/57 97 09/02/20 11:28 100.8 F H 09/02/20 11:15 101 H 30 H 133/57 98 09/02/20 11:00 105 H 21 128/56 96 09/02/20 10:45 104 H 30 H 136/53 97 09/02/20 10:30 104 H 29 H 141/57 96 09/02/20 10:15 105 H 28 H 157/58 96 - Physical Examination General: Other (unresponsive on the vent) HEENT: Positive: Other (Pupils fixed) Neck: Positive: neck supple Cardiac: Positive: Reg Rate and Rhythm Lungs: Positive: Decreased Breath Sounds Neuro: Positive: Other (Unresponsive, on the vent) Abdomen: Positive: Soft Skin: Positive: Clear Extremities: Absent: edema - Labs and Meds CBC 09/03/20 Range/Units 04:12 WBC 8.7 (4.5-11.0) K/mm3 RBC 2.35 L (3.65-5.03) M/mm3 Hgb 8.3 L (10.1-14.3) gm/dl Hct 25.1 L (30.3-42.9) % Plt Count 87 L (140-440) K/mm3 Comprehensive Metabolic Panel 09/03/20 Range/Units 04:12 Sodium 136 L (137-145) mmol/L Potassium 4.1 (3.6-5.0) mmol/L Chloride 90.3 L (98-107) mmol/L Carbon Dioxide 29 (22-30) mmol/L BUN 79 H (7-17) mg/dL Creatinine 8.1 H (0.6-1.2) mg/dL Glucose 223 H (65-100) mg/dL Calcium 7.1 L (8.4-10.2) mg/dL - Allied health notes Allied health notes reviewed: nursing
[2020-09-03] MEDS: SENNOSIDES/DOCUSATE SODIUM 8.6/50 MG TAB FEEDTUBE SCH ×2 (10:36→21:26)
[2020-09-03] MEDS: INSULIN GLARGINE 100 UNITS/ML SUB-Q SCH (10:54)
[2020-09-03] MEDS ORDERED: EPOETIN ALFA-EPBX 20,000 UNIT/1 ML VIAL SUB-Q SCH (11:00)
--- NOTE | 2020-09-03 11:17 | Progress Note ---
Assessment and Plan - Patient Problems (1) Hyperkalemia Current Visit: Yes Status: Acute Plan to address problem: Emergent dialysis was done for hyperkalemia. Potassium is back to normal. Follow-up potassium (2) Cardiac arrest Current Visit: Yes Status: Acute Plan to address problem: Etiology uncertain. Patient with anoxic encephalopathy. Family considering hospice. Prognosis is poor (3) End-stage renal disease on hemodialysis Current Visit: Yes Status: Acute Plan to address problem: Hemodialysis being this morning. Patient is on a Sunday, Sunday/Sunday schedule. (4) Hypertensive urgency Current Visit: Yes Status: Acute Plan to address problem: Blood pressure was elevated on presentation but has improved. Follow-up blood pressure (5) Bilateral pulmonary infiltrates on chest x-ray Current Visit: Yes Status: Acute Plan to address problem: Probably secondary to pulmonary edema. Possibility of multifocal pneumonia being entertained. Continue antibiotics especially given immunocompromised status. Follow-up cultures Subjective Date of service: 09/03/20 Principal diagnosis: Cardiac arrest; Ac. hypoxemic resp failure; PNA; ESRD; NSTEMI; Hyperkalemia Interval history: Patient seen lying in bed in the ICU. Condition is about the same. She is not on vasopressors. She is on dialysis and tolerating treatment with no complications. Ultrafiltration goal 2.5 L. Q 300/600. Blood pressure 166/65 P 97/min Objective - Exam Narrative Exam: Middle-aged -[place] female lying in bed in ICU intubated on ventilator HEENT: NCAT, moving her eyes not purposefully, Neck: Supple, no venous distention CVS: S1S2 RRR with no murmur, rub or gallop Chest: Clear to auscultation Abdomen: Protuberant, soft to firm, nontender, no organomegaly, bowel sounds are present Extremities: No edema Genitourinary deferred Skin warm and dry no rash Neuro: Eyes open, moving her eyes nonpurposefully, not following commands - Vital Signs Vital signs: Vital Signs - 12hr 09/02/20 09/02/20 09/02/20 23:16 23:30 23:41 Temperature 101.6 F H Pulse Rate 107 H 107 H Pulse Rate [ From Monitor] Respiratory 22 25 H Rate Blood Pressure 152/44 141/48 O2 Sat by Pulse 100 100 Oximetry O2 Sat by Pulse Oximetry [ Bilateral Throughout] 09/02/20 09/03/2009/03/21 23:45 00:00 00:15 Temperature Pulse Rate 105 H 108 H 107 H Pulse Rate [ 110 H From Monitor] Respiratory 22 21 20 Rate Blood Pressure 133/49 138/48 145/57 O2 Sat by Pulse 100 100 100 Oximetry O2 Sat by Pulse Oximetry [ Bilateral Throughout] 09/03/20 09/03/20 09/03/20 00:30 00:45 01:00 Temperature Pulse Rate 108 H 105 H 96 H Pulse Rate [ From Monitor] Respiratory 22 22 25 H Rate Blood Pressure 146/50 136/51 134/51 O2 Sat by Pulse 100 100 100 Oximetry O2 Sat by Pulse Oximetry [ Bilateral Throughout] 09/03/20 09/03/20 09/03/20 01:16 01:30 01:46 Temperature Pulse Rate 96 H 96 H 96 H Pulse Rate [ From Monitor] Respiratory 21 20 21 Rate Blood Pressure 135/55 135/55 130/38 O2 Sat by Pulse 100 100 100 Oximetry O2 Sat by Pulse Oximetry [ Bilateral Throughout] 09/03/20 09/03/20 09/03/20 02:00 02:07 02:16 Temperature Pulse Rate 98 H 99 H 99 H Pulse Rate [ From Monitor] Respiratory 22 17 Rate Blood Pressure 114/46 130/38 122/57 O2 Sat by Pulse 100 100 Oximetry O2 Sat by Pulse Oximetry [ Bilateral Throughout] 09/03/20 09/03/20 09/03/20 02:30 02:45 03:00 Temperature Pulse Rate 96 H 98 H 96 H Pulse Rate [ From Monitor] Respiratory 17 22 20 Rate Blood Pressure 119/52 122/48 123/47 O2 Sat by Pulse 100 100 100 Oximetry O2 Sat by Pulse Oximetry [ Bilateral Throughout] 09/03/20 09/03/20 09/03/20 03:10 03:16 03:30 Temperature 99.3 F Pulse Rate 98 H 101 H Pulse Rate [ From Monitor] Respiratory 19 19 Rate Blood Pressure 118/52 123/53 O2 Sat by Pulse 100 100 Oximetry O2 Sat by Pulse Oximetry [ Bilateral Throughout] 09/03/20 09/03/20 09/03/20 03:46 03:54 04:00 Temperature Pulse Rate 96 H 99 H 99 H Pulse Rate [ 98 H From Monitor] Respiratory 19 18 Rate Blood Pressure 133/55 135/55 133/55 O2 Sat by Pulse 100 100 100 Oximetry O2 Sat by Pulse Oximetry [ Bilateral Throughout] 09/03/20 09/03/20 09/03/20 04:15 04:30 04:45 Temperature Pulse Rate 99 H 101 H 101 H Pulse Rate [ From Monitor] Respiratory 19 20 21 Rate Blood Pressure 140/55 151/55 143/59 O2 Sat by Pulse 100 100 100 Oximetry O2 Sat by Pulse Oximetry [ Bilateral Throughout] 09/03/20 09/03/20 09/03/20 05:00 05:15 05:30 Temperature Pulse Rate 99 H 102 H 98 H Pulse Rate [ From Monitor] Respiratory 25 H 21 20 Rate Blood Pressure 135/50 139/46 145/57 O2 Sat by Pulse 100 100 100 Oximetry O2 Sat by Pulse Oximetry [ Bilateral Throughout] 09/03/20 09/03/20 09/03/20 05:45 06:00 06:15 Temperature Pulse Rate 101 H 103 H 98 H Pulse Rate [ From Monitor] Respiratory 21 22 22 Rate Blood Pressure 153/65 128/56 141/61 O2 Sat by Pulse 100 100 100 Oximetry O2 Sat by Pulse Oximetry [ Bilateral Throughout] 09/03/20 09/03/20 09/03/20 06:20 06:30 06:45 Temperature Pulse Rate 103 H 92 H 87 Pulse Rate [ From Monitor] Respiratory 21 22 Rate Blood Pressure 141/60 142/59 140/58 O2 Sat by Pulse 100 100 Oximetry O2 Sat by Pulse Oximetry [ Bilateral Throughout] 09/03/20 09/03/20 09/03/20 07:00 07:16 07:30 Temperature 99.4 F Pulse Rate 96 H 95 H 93 H Pulse Rate [ From Monitor] Respiratory 22 23 22 Rate Blood Pressure 128/49 139/49 144/46 O2 Sat by Pulse 100 100 100 Oximetry O2 Sat by Pulse Oximetry [ Bilateral Throughout] 09/03/20 09/03/20 09/03/20 07:46 08:00 08:16 Temperature Pulse Rate 94 H 76 95 H Pulse Rate [ 98 H From Monitor] Respiratory 22 21 25 H Rate Blood Pressure 155/50 154/49 152/51 O2 Sat by Pulse 100 100 100 Oximetry O2 Sat by Pulse Oximetry [ Bilateral Throughout] 09/03/20 09/03/20 09/03/20 08:20 08:30 08:46 Temperature Pulse Rate 98 H 99 H 101 H Pulse Rate [ From Monitor] Respiratory 26 H 25 H 27 H Rate Blood Pressure 159/61 159/61 150/51 O2 Sat by Pulse 100 100 100 Oximetry O2 Sat by Pulse Oximetry [ Bilateral Throughout] 09/03/20 09/03/20 09/03/20 09:00 09:16 09:30 Temperature Pulse Rate 101 H 101 H 105 H Pulse Rate [ From Monitor] Respiratory 26 H 24 28 H Rate Blood Pressure 151/51 146/50 155/50 O2 Sat by Pulse 100 100 100 Oximetry O2 Sat by Pulse Oximetry [ Bilateral Throughout] 09/03/20 09/03/20 09/03/20 09:35 09:42 09:45 Temperature 98.7 F Pulse Rate 100 H 100 H 101 H Pulse Rate [ From Monitor] Respiratory 28 H Rate Blood Pressure 147/49 135/54 174/52 O2 Sat by Pulse Oximetry O2 Sat by Pulse 100 Oximetry [ Bilateral Throughout] 09/03/20 09/03/20 09/03/20 09:46 10:00 10:15 Temperature Pulse Rate 102 H 97 H 97 H Pulse Rate [ From Monitor] Respiratory 28 H 27 H Rate Blood Pressure 135/54 187/61 166/59 O2 Sat by Pulse 100 100 Oximetry O2 Sat by Pulse Oximetry [ Bilateral Throughout] 09/03/20 09/03/20 09/03/20 10:16 10:30 10:45 Temperature Pulse Rate 98 H 97 H 99 H Pulse Rate [ From Monitor] Respiratory 27 H 27 H 26 H Rate Blood Pressure 166/59 166/65 161/60 O2 Sat by Pulse 100 100 100 Oximetry O2 Sat by Pulse Oximetry [ Bilateral Throughout] 09/03/20 11:00 Temperature Pulse Rate 100 H Pulse Rate [ From Monitor] Respiratory Rate Blood Pressure 154/62 O2 Sat by Pulse Oximetry O2 Sat by Pulse Oximetry [ Bilateral Throughout] - Lab 09/03/20 04:12 09/03/20 04:12 Most recent lab results ABG pH 7.506 pH Units (7.350-7.450) H 09/02/20 03:40 ABG pCO2 38.0 mm Hg 09/02/20 03:40 ABG pO2 83.1 mm Hg (80.0-90.0) 09/02/20 03:40 ABG HCO3 29.4 mmol/L (20.0-26.0) H 09/02/20 03:40 ABG O2 Saturation 97.2 % (95.0-99.0) 09/02/20 03:40 Calcium 7.1 mg/dL (8.4-10.2) L 09/03/20 04:12 Phosphorus 11.50 mg/dL (2.5-4.5) H 08/30/20 00:15 Magnesium 3.80 mg/dL (1.7-2.3) H 08/30/20 00:15 Medications & Allergies - Medications Allergies/Adverse Reactions: Allergies No Known Allergies Allergy (Verified 08/30/20 22:43) Home Medications: Home Medications Medication Instructions Recorded Confirmed Last Taken Type Acyclovir [Zovirax Tab] 400 mg PO BID 08/30/20 08/30/20 Unknown History Amlodipine Besylate 10 mg PO DAILY 08/30/20 08/30/20 Unknown History Furosemide [Lasix] 40 mg PO DAILY 08/30/20 08/30/20 Unknown History Gabapentin [Neurontin] 600 mg PO BID 08/30/20 08/30/20 Unknown History Imdur ER 30 mg PO DAILY 08/30/20 08/30/20 Unknown History Losartan Potassium 50 mg PO BID 08/30/20 08/30/20 Unknown History Losartan/Hydrochlorothiazide 1 each PO DAILY 08/30/20 08/30/20 Unknown History [Losartan-Hctz 100-25 mg Tab] Metoprolol Tartrate 25 mg PO BID 08/30/20 08/30/20 Unknown History Mirtazapine [Remeron] 30 mg PO HS 08/30/20 08/30/20 Unknown History Sevelamer Carbonate [Renvela] 800 mg PO TIDWM 08/30/20 08/30/20 Unknown History Vit B Complx C/Folic Acid/Zinc 0.8 mg PO DAILY 08/30/20 08/30/20 Unknown History [Dialyvite 800-Zinc 15 Tab] Zolpidem Tartrate [Edluar SUBL] 5 mg PO QHS PRN 08/30/20 08/30/20 Unknown History calcitrioL 0.5 mcg PO DAILY 08/30/20 08/30/20 Unknown History Active Medications: Generic Name Dose Route Start Last Admin Trade Name Freq PRN Reason Stop Dose Admin Acetaminophen 650 mg 09/01/20 00:27 09/03/20 00:38 Acetaminophen 325 Mg/10.15 Ml Oral Liqd Unit Dose FEEDTUBE 650 mg Q6H PRN Administration Non Cardiac Pain or Temp>100.5 Amlodipine Besylate 10 mg 09/03/20 11:00 Amlodipine 10 Mg Tab PO QDAY ANIYAH Lipase/Protease/Amylase 1 each 08/30/20 14:27 Lipase 10,500/Protease 25,000/Amylase 43,750 (Units) Dr Cap FEEDTUBE PRN PRN For Clogged Feeding Tube Dextrose 50 ml 08/30/20 19:48 Dextrose 50% In Water (25gm) 50 Ml Syringe IV Q30MIN PRN Hypoglycemia Protocol Famotidine 20 mg 09/02/20 10:00 09/02/20 09:31 Famotidine 20 Mg Tab PO 20 mg DAILY ANIYAH Administration Fentanyl 50 mcg 08/30/20 14:05 Fentanyl 100 Mcg/2 Ml Inj IV Q10MIN PRN ANALGESIA Heparin Sodium (Porcine) 5,000 unit 08/30/20 06:00 09/03/20 06:20 Heparin 5,000 Unit/1 Ml Vial SUB-Q 5,000 unit Q8HR ANIYAH Administration Hydralazine HCl 10 mg 08/31/20 18:14 08/31/20 21:48 Hydralazine 20 Mg/1 Ml Inj IV 10 mg Q4HR PRN Administration Hypertension Hydrophilic Ointment 1 applic 08/30/20 14:05 Lip Therapy Vaseline TP Q2HR PRN Dry Lips Sodium Chloride 100 mls @ 999 mls/hr 08/30/20 09:00 Nacl 0.9% IV ARMIDA PRN Hypotension Propofol 1,000 mg in 100 mls @ 2.381 mls/hr 08/30/20 13:00 08/31/20 16:39 Diprivan 10 Mg/Ml IV 0 mcg/kg/min TITR ANIYAH 0 mls/hr Titration Protocol 5 MCG/KG/MIN Meropenem 500 mg in 50 mls @ 50 mls/hr 08/30/20 14:00 09/02/20 14:43 Merrem/Ns 500 Mg/50 Ml IV 09/06/20 14:59 Infused Q24H ANIYAH Infusion Fentanyl Citrate 2,000 mcg in 100 mls @ 3.969 mls/hr 08/30/20 15:00 09/01/20 15:41 Fentanyl Drip Premix IV 0 mcg/kg/hr TITR ANIYAH 0 mls/hr Titration Protocol 1 MCG/KG/HR Insulin Glargine 30 units 09/03/20 10:00 09/03/20 10:54 Insulin Glargine 100 Units/Ml SUB-Q 30 units DAILY [facility] Administration Insulin Human Regular 0 units 09/01/20 10:00 09/03/20 10:53 Insulin Regular, Human 100 Units/1 Ml SUB-Q 4 units Q4HR ANIYAH Administration Protocol Magnesium Hydroxide 30 ml 08/30/20 04:41 Magnesium Hydroxide (Mom) Oral Liqd Udc PO Q4H PRN Constipation Metoprolol Tartrate 50 mg 09/03/20 11:00 Metoprolol Tartrate 50 Mg Tab PO BID [facility] Multi-Ingred Cream/Lotion/Oil/Oint 1 applic 08/30/20 14:05 08/31/20 01:17 Mineral Oil/Petrolatum, White Ophth Oint 3.5 Gm OU 1 applic Q4HR PRN Administration Dry Eye(s) Nitroglycerin 0.4 mg 09/04/20 06:00 Nitroglycerin 0.4 Mg Patch 24hr TD QDAY@0600 [facility] Ondansetron HCl 4 mg 08/30/20 04:41 Ondansetron 4 Mg/2 Ml Inj IV Q8H PRN Nausea And Vomiting Senna/Docusate Sodium 1 tab 08/30/20 22:00 09/02/20 21:58 Sennosides/Docusate Sodium 8.6/50 Mg Tab FEEDTUBE Not Given BID ANIYAH Simple Syrup 15 ml 08/30/20 14:27 Simple Syrup 15 Ml FEEDTUBE PRN PRN Hypoglycemia Simple Syrup 30 ml 08/30/20 14:27 Simple Syrup 15 Ml FEEDTUBE PRN PRN Hypoglycemia Sodium Bicarbonate 325 mg 08/30/20 14:27 Sodium Bicarbonate 325 Mg Tab FEEDTUBE PRN PRN For Clogged Feeding Tube Sodium Chloride 10 ml 08/30/20 10:00 09/02/20 21:58 Sodium Chloride 0.9% 10 Ml Flush Syringe IV 10 ml BID ANIYAH Administration Sodium Chloride 10 ml 08/30/20 04:41 Sodium Chloride 0.9% 10 Ml Flush Syringe IV PRN PRN LINE FLUSH
--- NOTE | 2020-09-03 11:20 | Progress Note ---
<PROMISEBONNIEVivi - Last Filed: 09/03/20 13:05> Assessment and Plan Assessment and plan: This is 65-year-old female with DM, HTN, HLD, ESRD on HD MWF, multiple myeloma s/p chemotherapy and stem cell transplant and current tobacco abuse who was admitted s/p cardiac arrest with anoxic encephalopathy, hypertensive emergency, multifocal pneumonia and has a COVID-19 PUI COVID-19, ruled out S/p cardiac arrest Acute hypoxic respiratory failure Diffuse anoxic brain injury as evidenced by MRI Pericardial effusion Severe cardiomegaly Anoxic encephalopathy Hyperkalemia Hyperglycemia Leukocytosis Transaminitis Hypertension Hyperlipidemia ESRD on HD Multiple myeloma Current tobacco abuse -CCM, nephrology, cardiology, infectious disease, neurology consulted, appreciate recommendations -08/29 CXR shows moderate enlargement of cardiac silhouette, diffuse bilateral mixed chest x-ray and airspace disease -08/30 CT C-spine shows no CT evidence of acute bony abnormality the cervical spine, biapical airspace disease -08/30 CT head/brain shows no CT evidence of acute intracranial hemorrhage, mild generalized parenchymal atrophy, no evidence of midline shift or mass-effect, moderate size right frontal scalp hematoma -08/30 CTA chest shows no pulmonary embolism, mildly enlarged heart, moderate sized pericardial effusion, diffuse bilateral mixed interstitial and airspace disease with associated atelectasis. -08/30 CT abdomen/pelvis with contrast shows mild fluid-filled distended stomach, dense atherosclerotic calcification of the abdominal aorta, multiple loops of moderately prominent fecalized small bowel, moderate amount of retained stool throughout the colon which may represent possible sequela impaction and constip ation, multiple colonic diverticula, several calcified uterine fibroids, bibasilar mixed interstitial and airspace disease -08/30 bilateral lower extremity Doppler ultrasound shows no evidence of DVT in either lower extremity -08/30 CXR shows moderate bilateral lateral pulmonary opacities improvement -08/30 echocardiogram shows a small to moderate sized circumferential pericardial effusion, no tamponade, left ventricle systolic function normal, LVEF 55 to 60%, mild concentric LVH, trace MR, trace TR, no pulmonary hypertension -09/01 MRI brain showed diffuse restricted diffusion in the cerebral cortex consistent with global anoxic brain injury -08/31 EEG pending -Cardiology placed patient on IV metoprolol and IV nitroglycerin drip -BP monitoring per protocol -PRN hydralazine -Empiric antibiotics per infectious disease -08/30 tracheal aspirate pending -S/P calcium gluconate, insulin, D50 for hyperkalemia in the emergency department and repeated on 08/31 -Bowel regimen -Tube feedings, SSI, Accu-Cheks every 6, hypoglycemic protocol, long-acting insulin (titrate as needed) -Trend CBC,BMP DVT/GI prophylaxis: SCDs to bilateral lower extremities while in bed, PPI, heparin subcu Disposition: ICU, hospice referral made Lines: L SVC permcath, AVF The high probability of a clinically significant, sudden or life threatening deterioration of the [multi] system(s) required my full and direct attention, intervention and personal management. The aggregate critical care time was [35] minutes. This time is in addition to time spent performing reported procedures but includes the following: [x] Data Review and interpretation [x] Patient assessment and monitoring of vital signs [x] Documentation [x] Medication orders and management History Interval history: This is 65-year-old female with diabetes mellitus, hypertension, hyperlipidemia, ESRD on HD MWF via left chest permacath, multiple myeloma s/p chemotherapy and stem cell transplant with right chest port, immature right upper extremity aVF and current tobacco abuse who presented to the emergency department on 08/30 s/p cardiac arrest after being found laying in driveway, unresponsive and in asystole by EMS after being called for shortness of breath. Patient was intubated by EMS and received 3 mg epinephrine, calcium and serum bicarbonate and ROSC was eventually achieved after 10 minutes of resuscitation. Recommend emergency department revealed hyperkalemia, CXR showed moderate enlargement of cardiac silhouette, diffuse bilateral mixed interstitial and airspace disease with considerations to pulmonary edema or multifocal infectious process. Patient was admitted to the hospitalist service s/p cardiac arrest with anoxic encephalopathy, ESRD on HD, hypertensive emergency, multifocal pneumonia and a and has a COVID-19 PUI. CCM, nephrology, neurology infectious disease and car diology were consulted. 08/30: This morning neurology was consulted, patient noted to have leukocytosis, hyperkalemia, metabolic acidosis and hyperglycemia. Patient had hyperphosphatemia, hypomagnesemia also. Patient had hemodialysis today per nephrology. COVID-19 PCR negative. Patient was in ED holding and admitted to the ICU later during the day. Patient is sedated on fentanyl and propofol. At the time my examination she was assist-control, rate of 28, tidal and 450, 60 PEEP and FiO2 of 60%. 08/31: Patient received hemodialysis however she is hyperkalemia again which was treated with dextrose, insulin and Kionex. Patient received hemodialysis again today per nephrology. Patient continues with with meropenem until blood cultures per infectious disease. MRI brain and EEG pending, lactulose discontinued (which was started due to large stool burden). We will follow up on cultures and BMP. Patient also noted to be hyperglycemic and was started on long acting insulin. Family updated at bedside by nurse mahmood and Dr. Garces. 09/01: Patient was noted to be hypertensive yesterday evening and today so cardiology will start the patient on a nitroglycerin drip and IV metoprolol. CCM reduced rate. Patient received hemodialysis today and scheduled for MRI brain. Patient noted to be hyperkalemic and follow-up BMP shows a potassium of 4. Patient's MRI brain showed diffuse anoxic brain injury and Dr. Garces updated the family at bedside. 09/02: Patient had an MRI brain yesterday which showed global anoxic brain injury. At the time of my examination patient was on PCV CPAP with tidal volume 450, FiO2 of 30. Patient is hyperglycemic and insulin dosage increased. Family decision has not been made, Dr. Silva and / Dez updated family. Neurology has signed off 09/03: Patient continues to be hypoglycemic and long-acting insulin dosage increased. She is receiving hemodialysis today. Patient has a referral to inpatient hospice. No acute events reported overnight. CM speaking to family re hospice. Cardio changed BP medications to PO. CCM to discuss goals of care and rT to rest daily on AC at night/continue CPAP trials during the day. Hospitalist Physical - Constitutional Vitals: Temp Pulse Resp BP Pulse Ox 98.7 F 102 H 26 H 156/60 100 09/03/20 09:35 09/03/20 11:15 09/03/20 10:45 09/03/20 11:15 09/03/20 10:45 General appearance: Present: other (Unresponsive, on the vent) - EENT Eyes: Present: conjunctival injection. Absent: PERRL ENT: dentition normal - Neck Neck: Absent: masses or JVD, cervical LAD - Respiratory Respiratory effort: normal Respiratory: bilateral: CTA - Cardiovascular Rhythm: regular Heart Sounds: Present: S1 & S2. Absent: systolic murmur, diastolic murmur - Extremities Extremities: no ischemia, pulses intact, pulses symmetrical, No edema, normal temperature, normal color Peripheral Pulses: within normal limits - Abdominal General gastrointestinal: soft, non-tender, non-distended, normal bowel sounds - Integumentary Integumentary: Present: warm, dry - Psychiatric Psychiatric: other (not interactive) - Neurologic Neurologic: no CNII-XII intact, no moves all extremities - Allied Health Allied health notes reviewed: nursing, RT, social work HEART Score - HEART Score Troponin: Troponin T 0.085 ng/mL (0.00-0.029) H 08/30/20 00:15 Results - Labs CBC & Chem 7: 09/03/20 04:12 09/03/20 04:12 Labs: Laboratory Last Values WBC 8.7 K/mm3 (4.5-11.0) 09/03/20 04:12 RBC 2.35 M/mm3 (3.65-5.03) L 09/03/20 04:12 Hgb 8.3 gm/dl (10.1-14.3) L 09/03/20 04:12 Hct 25.1 % (30.3-42.9) L 09/03/20 04:12 MCV 107 fl (79-97) H 09/03/20 04:12 MCH 35 pg (28-32) H 09/03/20 04:12 MCHC 33 % (30-34) 09/03/20 04:12 RDW 18.5 % (13.2-15.2) H 09/03/20 04:12 Plt Count 87 K/mm3 (140-440) L 09/03/20 04:12 Lymph % (Auto) 6.9 % (13.4-35.0) L 08/31/20 05:45 [place] % (Auto) 4.5 % (0.0-7.3) 08/31/20 05:45 Eos % (Auto) 0.0 % (0.0-4.3) 08/31/20 05:45 Baso % (Auto) 0.8 % (0.0-1.8) 08/31/20 05:45 Lymph # (Auto) 0.9 K/mm3 (1.2-5.4) L 08/31/20 05:45 [place] # (Auto) 0.6 K/mm3 (0.0-0.8) 08/31/20 05:45 Eos # (Auto) 0.0 K/mm3 (0.0-0.4) 08/31/20 05:45 Baso # (Auto) 0.1 K/mm3 (0.0-0.1) 08/31/20 05:45 Add Manual Diff Complete 08/30/20 00:15 Total Counted 100 08/30/20 00:15 Seg Neutrophils % 87.8 % (40.0-70.0) H 08/31/20 05:45 Seg Neuts % (Manual) 57.0 % (40.0-70.0) 08/30/20 00:15 Band Neutrophils % 1.0 % 08/30/20 00:15 Lymphocytes % (Manual) 34.0 % (13.4-35.0) 08/30/20 00:15 Monocytes % (Manual) 5.0 % (0.0-7.3) 08/30/20 00:15 Eosinophils % (Manual) 3.0 % (0.0-4.3) 08/30/20 00:15 Nucleated RBC % 1.0 % (0.0-0.9) H 08/30/20 00:15 Seg Neutrophils # 11.5 K/mm3 (1.8-7.7) H 08/31/20 05:45 Seg Neutrophils # Man 5.6 K/mm3 (1.8-7.7) 08/30/20 00:15 Band Neutrophils # 0.1 K/mm3 08/30/20 00:15 Lymphocytes # (Manual) 3.3 K/mm3 (1.2-5.4) 08/30/20 00:15 Abs React Lymphs (Man) 0.0 K/mm3 08/30/20 00:15 Monocytes # (Manual) 0.5 K/mm3 (0.0-0.8) 08/30/20 00:15 Eosinophils # (Manual) 0.3 K/mm3 (0.0-0.4) 08/30/20 00:15 Basophils # (Manual) 0.0 K/mm3 (0.0-0.1) 08/30/20 00:15 Metamyelocytes # 0.0 K/mm3 08/30/20 00:15 Myelocytes # 0.0 K/mm3 08/30/20 00:15 Promyelocytes # 0.0 K/mm3 08/30/20 00:15 Blast Cells # 0.0 K/mm3 08/30/20 00:15 WBC Morphology Not Reportable 08/30/20 00:15 Hypersegmented Neuts Not Reportable 08/30/20 00:15 Hyposegmented Neuts Not Reportable 08/30/20 00:15 Hypogranular Neuts Not Reportable 08/30/20 00:15 Smudge Cells Not Reportable 08/30/20 00:15 Toxic Granulation Not Reportable 08/30/20 00:15 Toxic Vacuolation Not Reportable 08/30/20 00:15 Dohle Bodies Not Reportable 08/30/20 00:15 Pelger-Huet Anomaly Not Reportable 08/30/20 00:15 Lolita Rods Not Reportable 08/30/20 00:15 Platelet Estimate Consistent w auto 08/30/20 00:15 Clumped Platelets Not Reportable 08/30/20 00:15 Plt Clumps, EDTA Not Reportable 08/30/20 00:15 Large Platelets Not Reportable 08/30/20 00:15 Giant Platelets Not Reportable 08/30/20 00:15 Platelet Satelliting Not Reportable 08/30/20 00:15 Plt Morphology Comment Not Reportable 08/30/20 00:15 RBC Morphology Not Reportable 08/30/20 00:15 Dimorphic RBCs Not Reportable 08/30/20 00:15 Polychromasia Not Reportable 08/30/20 00:15 Hypochromasia Not Reportable 08/30/20 00:15 Poikilocytosis Not Reportable 08/30/20 00:15 Anisocytosis 1+ 08/30/20 00:15 Microcytosis Not Reportable 08/30/20 00:15 Macrocytosis Not Reportable 08/30/20 00:15 Spherocytes Not Reportable 08/30/20 00:15 Pappenheimer Bodies Not Reportable 08/30/20 00:15 Sickle Cells Not Reportable 08/30/20 00:15 Target Cells Not Reportable 08/30/20 00:15 Tear Drop Cells Not Reportable 08/30/20 00:15 Ovalocytes Not Reportable 08/30/20 00:15 Helmet Cells Not Reportable 08/30/20 00:15 Anton-Cop[place] Bodies Not Reportable 08/30/20 00:15 Schriever Rings Not Reportable 08/30/20 00:15 [place] Cells Not Reportable 08/30/20 00:15 Bite Cells Not Reportable 08/30/20 00:15 Crenated Cell Not Reportable 08/30/20 00:15 Elliptocytes Not Reportable 08/30/20 00:15 Acanthocytes (Spur) Not Reportable 08/30/20 00:15 Rouleaux Not Reportable 08/30/20 00:15 Hemoglobin C Crystals Not Reportable 08/30/20 00:15 Schistocytes Not Reportable 08/30/20 00:15 Malaria parasites Not Reportable 08/30/20 00:15 Maurice Bodies Not Reportable 08/30/20 00:15 Hem Pathologist Commnt No 08/30/20 00:15 PT 12.8 Sec. (12.2-14.9) 08/31/20 05:45 INR 0.90 (0.87-1.13) 08/31/20 05:45 D-Dimer > 39172 ng/mlDDU (0-234) H 08/30/20 03:10 ABG pH 7.506 pH Units (7.350-7.450) H 09/02/20 03:40 POC ABG pCO2 35.9 mmHg (32.0-48.0) 09/01/20 03:13 ABG pCO2 38.0 mm Hg 09/02/20 03:40 POC ABG pO2 89.7 mmHg (83-108) 09/01/20 03:13 ABG pO2 83.1 mm Hg (80.0-90.0) 09/02/20 03:40 POC ABG HCO3 28.6 09/01/20 03:13 ABG HCO3 29.4 mmol/L (20.0-26.0) H 09/02/20 03:40 ABG O2 Saturation 97.2 % (95.0-99.0) 09/02/20 03:40 ABG O2 Content 11.2 (0.0-44) 09/02/20 03:40 POC ABG Base Excess 5.5 09/01/20 03:13 ABG Base Excess 5.9 mmol/L (-2.0-3.0) H 09/02/20 03:40 ABG Hemoglobin 8.3 gm/dl (12.0-16.0) L 09/02/20 03:40 ABG Oxyhemoglobin 95.9 (94-98) 09/01/20 03:13 ABG Carboxyhemoglobin 1.9 % (0.0-5.0) 09/02/20 03:40 ABG Methemoglobin 0.5 % (0.0-1.5) 09/02/20 03:40 ABG Sodium 134.7 mmol/L (136.0-145.0) L 09/01/20 03:13 ABG Potassium 3.7 mmol/L (3.40-4.50) 09/01/20 03:13 ABG Chloride 94.0 mmol/L (98-107) L 09/01/20 03:13 ABG Glucose 441 mg/dL (65-95) H 09/01/20 03:13 Oxyhemoglobin 94.8 % (95.0-99.0) L 09/02/20 03:40 Carboxyhemoglobin 1.2 (0.5-1.5) 09/01/20 03:13 FiO2 30 % 09/02/20 03:40 FiO2 % 30.0 09/01/20 03:13 Sodium 136 mmol/L (137-145) L 09/03/20 04:12 Potassium 4.1 mmol/L (3.6-5.0) 09/03/20 04:12 Chloride 90.3 mmol/L (98-107) L 09/03/20 04:12 Carbon Dioxide 29 mmol/L (22-30) 09/03/20 04:12 Anion Gap 21 mmol/L 09/03/20 04:12 BUN 79 mg/dL (7-17) H 09/03/20 04:12 Creatinine 8.1 mg/dL (0.6-1.2) H 09/03/20 04:12 Estimated GFR 6 ml/min 09/03/20 04:12 BUN/Creatinine Ratio 10 % 09/03/20 04:12 Glucose 223 mg/dL (65-100) H 09/03/20 04:12 POC Glucose 202 mg/dL (70-105) H 09/03/20 09:28 Calcium 7.1 mg/dL (8.4-10.2) L 09/03/20 04:12 Phosphorus 11.50 mg/dL (2.5-4.5) H 08/30/20 00:15 Magnesium 3.80 mg/dL (1.7-2.3) H 08/30/20 00:15 Ferritin 830.0 ng/mL (10.0-200.0) H 08/30/20 03:10 Total Bilirubin 0.40 mg/dL (0.1-1.2) 08/30/20 15:03 AST 68 units/L (5-40) H 08/30/20 15:03 ALT 41 units/L (7-56) 08/30/20 15:03 Alkaline Phosphatase 364 units/L (35-129) H 08/30/20 15:03 Lactate Dehydrogenase 400 units/L (91-180) H 08/30/20 03:10 Troponin T 0.085 ng/mL (0.00-0.029) H 08/30/20 00:15 C-Reactive Protein 0.20 mg/dL (0.00-1.30) 08/30/20 03:10 Total Protein 6.4 g/dL (6.3-8.2) 08/30/20 15:03 Albumin 3.7 g/dL (3.9-5) L 08/30/20 15:03 Albumin/Globulin Ratio 1.4 % 08/30/20 15:03 Triglycerides 61 mg/dL (2-149) 08/30/20 00:15 Cholesterol 150 mg/dL (50-199) 08/30/20 00:15 LDL Cholesterol Direct 71 mg/dL (50-130) 08/30/20 00:15 HDL Cholesterol 66 mg/dL (40-59) H 08/30/20 00:15 Cholesterol/HDL Ratio 2.27 % 08/30/20 00:15 Procalcitonin 4.16 ng/mL (<0.15) 08/30/20 03:10 Arterial Blood Glucose 441 mg/dL (65-95) H 09/01/20 03:13 Arterial Blood Ionized Calcium 3.8 mg/dL (4.6-5.3) L 09/01/20 03:13 Coronavirus (PCR) Negative (Negative) 08/30/20 Unknown Hepatitis A IgM Ab Non-reactive (NonReactive) 08/30/20 07:35 Hep Bs Antigen Non-reactive (Negative) 08/30/20 07:35 Hep B Core IgM Ab Non-reactive (NonReactive) 08/30/20 07:35 Hepatitis C Antibody Non-reactive (NonReactive) 08/30/20 07:35 Microbiology: Microbiology 08/30/20 18:15 Peripheral/Venous Blood Culture - Preliminary NO GROWTH AFTER 72 HOURS 08/30/20 18:15 Peripheral/Venous Blood Culture - Preliminary NO GROWTH AFTER 72 HOURS Johns/IV: Voiding Method Incontinent Active Medications - Current Medications Current Medications: Generic Name Dose Route Start Last Admin Trade Name Freq PRN Reason Stop Dose Admin Acetaminophen 650 mg 09/01/20 00:27 09/03/20 00:38 Acetaminophen 325 Mg/10.15 Ml Oral Liqd Unit Dose FEEDTUBE 650 mg Q6H PRN Administration Non Cardiac Pain or Temp>100.5 Amlodipine Besylate 10 mg 09/03/20 11:00 Amlodipine 10 Mg Tab PO QDAY ANIYAH Lipase/Protease/Amylase 1 each 08/30/20 14:27 Lipase 10,500/Protease 25,000/Amylase 43,750 (Units) Dr Duran FEEDTUBE PRN PRN For Clogged Feeding Tube Dextrose 50 ml 08/30/20 19:48 Dextrose 50% In Water (25gm) 50 Ml Syringe IV Q30MIN PRN Hypoglycemia Protocol Famotidine 20 mg 09/02/20 10:00 09/02/20 09:31 Famotidine 20 Mg Tab PO 20 mg DAILY ANIYAH Administration Fentanyl 50 mcg 08/30/20 14:05 Fentanyl 100 Mcg/2 Ml Inj IV Q10MIN PRN ANALGESIA Heparin Sodium (Porcine) 5,000 unit 08/30/20 06:00 09/03/20 06:20 Heparin 5,000 Unit/1 Ml Vial SUB-Q 5,000 unit Q8HR ANIYAH Administration Hydralazine HCl 10 mg 08/31/20 18:14 08/31/20 21:48 Hydralazine 20 Mg/1 Ml Inj IV 10 mg Q4HR PRN Administration Hypertension Hydrophilic Ointment 1 applic 08/30/20 14:05 Lip Therapy Vaseline TP Q2HR PRN Dry Lips Sodium Chloride 100 mls @ 999 mls/hr 08/30/20 09:00 Nacl 0.9% IV ARMIDA PRN Hypotension Propofol 1,000 mg in 100 mls @ 2.381 mls/hr 08/30/20 13:00 08/31/20 16:39 Diprivan 10 Mg/Ml IV 0 mcg/kg/min TITR ANIYAH 0 mls/hr Titration Protocol 5 MCG/KG/MIN Meropenem 500 mg in 50 mls @ 50 mls/hr 08/30/20 14:00 09/02/20 14:43 Merrem/Ns 500 Mg/50 Ml IV 09/06/20 14:59 Infused Q24H ANIYAH Infusion Fentanyl Citrate 2,000 mcg in 100 mls @ 3.969 mls/hr 08/30/20 15:00 09/01/20 15:41 Fentanyl Drip Premix IV 0 mcg/kg/hr TITR ANIYAH 0 mls/hr Titration Protocol 1 MCG/KG/HR Insulin Glargine 30 units 09/03/20 10:00 09/03/20 10:54 Insulin Glargine 100 Units/Ml SUB-Q 30 units DAILY ANIYAH Administration Insulin Human Regular 0 units 09/01/20 10:00 09/03/20 10:53 Insulin Regular, Human 100 Units/1 Ml SUB-Q 4 units Q4HR [facility] Administration Protocol Magnesium Hydroxide 30 ml 08/30/20 04:41 Magnesium Hydroxide (Mom) Oral Liqd Udc PO Q4H PRN Constipation Metoprolol Tartrate 50 mg 09/03/20 11:00 Metoprolol Tartrate 50 Mg Tab PO BID [facility] Multi-Ingred Cream/Lotion/Oil/Oint 1 applic 08/30/20 14:05 08/31/20 01:17 Mineral Oil/Petrolatum, White Ophth Oint 3.5 Gm OU 1 applic Q4HR PRN Administration Dry Eye(s) Nitroglycerin 0.4 mg 09/04/20 06:00 Nitroglycerin 0.4 Mg Patch 24hr TD QDAY@0600 [facility] Ondansetron HCl 4 mg 08/30/20 04:41 Ondansetron 4 Mg/2 Ml Inj IV Q8H PRN Nausea And Vomiting Senna/Docusate Sodium 1 tab 08/30/20 22:00 09/02/20 21:58 Sennosides/Docusate Sodium 8.6/50 Mg Tab FEEDTUBE Not Given BID [facility] Simple Syrup 15 ml 08/30/20 14:27 Simple Syrup 15 Ml FEEDTUBE PRN PRN Hypoglycemia Simple Syrup 30 ml 08/30/20 14:27 Simple Syrup 15 Ml FEEDTUBE PRN PRN Hypoglycemia Sodium Bicarbonate 325 mg 08/30/20 14:27 Sodium Bicarbonate 325 Mg Tab FEEDTUBE PRN PRN For Clogged Feeding Tube Sodium Chloride 10 ml 08/30/20 10:00 09/02/20 21:58 Sodium Chloride 0.9% 10 Ml Flush Syringe IV 10 ml BID ANIYAH Administration Sodium Chloride 10 ml 08/30/20 04:41 Sodium Chloride 0.9% 10 Ml Flush Syringe IV PRN PRN LINE FLUSH Nutrition/Malnutrition Assess - Dietary Evaluation Nutrition/Malnutrition Findings: Nutrition Notes Start: 08/30/20 07:40 Freq: Status: Active Protocol: Document 09/03/20 10:52 CW (Rec: 09/03/20 10:56 CW [id number]) Nutrition Notes Initial or Follow up Reassessment Current Diagnosis CKD (stage V CKD),Diabetes, Hypertension Other Pertinent Diagnosis pneu, cardiac arrest, on HD, COVID PUI Current Diet Nepro 1.8 at 35 ml/hr Labs/Tests Na 136 BUN 79 Cr 8.1 BG 223 Pertinent Medications Humulin Nitroglycerin in dextrose at 13.5 ml/hr Merrem Height 5 ft 3 in Weight 61.[address] [place] Body Weight (kg) 52.27 BMI 24.0 Weight change and time frame [place] weight change noted. weight of 38kg likely inaccurate Weight Status Appropriate Subjective/Other Information FU for TF tolerance. Pt recieved HD today. TF running at goal. NOK considering hospice placement. No reports of TF intolerance. Loose stool likely related to ABTx Percent of energy/protein needs met: 100%/85% Burn Absent Trauma Absent GI Symptoms Diarrhea Current % PO Negligible Minimum of two criteria No physical signs of malnutrition #1 Nutrition Diagnosis Inadequate oral intake Diagnosis Progress(for reassessment Continues documentation) Is patient on ventilator? Yes Is Patient Ambulatory and/or Out of Bed No REE-([place]-[facility] Jeor-confined to bed) 1353.348 [facility]culation [facility] Additional Notes Protein: (1.2-2g/kg) 80-133g Fluid: 1 - 1.5 L Nutrition Intervention Change Diet Order: Continue Nutrition Support: Nepro 1.8 at 35 ml/hr Flush 150 ml q4h or per MD Kcal 1,512 Protein (gm) 68 Carbohydrates (gm) 135 Fat (gm) 81 Fluid (mL) 611 Goal #1 Meet at least 75% of protein and energy needs via TF Anticipated Discharge Needs: Unable to determine at this time Follow-Up By: 09/06/20 Additional Comments F/U for TF tolerance, wt <CAIT GARCES - Last Filed: 09/03/20 17:37> Assessment and Plan Assessment and plan: Agree with assessment and plan as outlined by nurse practitioner. I have personally seen and examined the patient. Patient was getting dialysis, no family at the bedside. Family is working with case management for inpatient hospice at this time. Neurology has spoken with the family and they are aware that there is global anoxic brain injury. Hospitalist Physical - Constitutional Vitals: Temp Pulse Resp BP Pulse Ox 97.8 F 97 H 30 H 157/49 95 09/03/20 13:20 09/03/20 16:45 09/03/20 16:45 09/03/20 16:45 09/03/20 16:45 HEART Score - HEART Score Troponin: Troponin T 0.085 ng/mL (0.00-0.029) H 08/30/20 00:15 Results - Labs CBC & Chem 7: 09/03/20 04:12 09/03/20 04:12 Labs: Laboratory Last Values WBC 8.7 K/mm3 (4.5-11.0) 09/03/20 04:12 RBC 2.35 M/mm3 (3.65-5.03) L 09/03/20 04:12 Hgb 8.3 gm/dl (10.1-14.3) L 09/03/20 04:12 Hct 25.1 % (30.3-42.9) L 09/03/20 04:12 MCV 107 fl (79-97) H 09/03/20 04:12 MCH 35 pg (28-32) H 09/03/20 04:12 MCHC 33 % (30-34) 09/03/20 04:12 RDW 18.5 % (13.2-15.2) H 09/03/20 04:12 Plt Count 87 K/mm3 (140-440) L 09/03/20 04:12 Lymph % (Auto) 6.9 % (13.4-35.0) L 08/31/20 05:45 [place] % (Auto) 4.5 % (0.0-7.3) 08/31/20 05:45 Eos % (Auto) 0.0 % (0.0-4.3) 08/31/20 05:45 Baso % (Auto) 0.8 % (0.0-1.8) 08/31/20 05:45 Lymph # (Auto) 0.9 K/mm3 (1.2-5.4) L 08/31/20 05:45 [place] # (Auto) 0.6 K/mm3 (0.0-0.8) 08/31/20 05:45 Eos # (Auto) 0.0 K/mm3 (0.0-0.4) 08/31/20 05:45 Baso # (Auto) 0.1 K/mm3 (0.0-0.1) 08/31/20 05:45 Add Manual Diff Complete 08/30/20 00:15 Total Counted 100 08/30/20 00:15 Seg Neutrophils % 87.8 % (40.0-70.0) H 08/31/20 05:45 Seg Neuts % (Manual) 57.0 % (40.0-70.0) 08/30/20 00:15 Band Neutrophils % 1.0 % 08/30/20 00:15 Lymphocytes % (Manual) 34.0 % (13.4-35.0) 08/30/20 00:15 Monocytes % (Manual) 5.0 % (0.0-7.3) 08/30/20 00:15 Eosinophils % (Manual) 3.0 % (0.0-4.3) 08/30/20 00:15 Nucleated RBC % 1.0 % (0.0-0.9) H 08/30/20 00:15 Seg Neutrophils # 11.5 K/mm3 (1.8-7.7) H 08/31/20 05:45 Seg Neutrophils # Man 5.6 K/mm3 (1.8-7.7) 08/30/20 00:15 Band Neutrophils # 0.1 K/mm3 08/30/20 00:15 Lymphocytes # (Manual) 3.3 K/mm3 (1.2-5.4) 08/30/20 00:15 Abs React Lymphs (Man) 0.0 K/mm3 08/30/20 00:15 Monocytes # (Manual) 0.5 K/mm3 (0.0-0.8) 08/30/20 00:15 Eosinophils # (Manual) 0.3 K/mm3 (0.0-0.4) 08/30/20 00:15 Basophils # (Manual) 0.0 K/mm3 (0.0-0.1) 08/30/20 00:15 Metamyelocytes # 0.0 K/mm3 08/30/20 00:15 Myelocytes # 0.0 K/mm3 08/30/20 00:15 Promyelocytes # 0.0 K/mm3 08/30/20 00:15 Blast Cells # 0.0 K/mm3 08/30/20 00:15 WBC Morphology Not Reportable 08/30/20 00:15 Hypersegmented Neuts Not Reportable 08/30/20 00:15 Hyposegmented Neuts Not Reportable 08/30/20 00:15 Hypogranular Neuts Not Reportable 08/30/20 00:15 Smudge Cells Not Reportable 08/30/20 00:15 Toxic Granulation Not Reportable 08/30/20 00:15 Toxic Vacuolation Not Reportable 08/30/20 00:15 Dohle Bodies Not Reportable 08/30/20 00:15 Pelger-Huet Anomaly Not Reportable 08/30/20 00:15 Lolita Rods Not Reportable 08/30/20 00:15 Platelet Estimate Consistent w auto 08/30/20 00:15 Clumped Platelets Not Reportable 08/30/20 00:15 Plt Clumps, EDTA Not Reportable 08/30/20 00:15 Large Platelets Not Reportable 08/30/20 00:15 Giant Platelets Not Reportable 08/30/20 00:15 Platelet Satelliting Not Reportable 08/30/20 00:15 Plt Morphology Comment Not Reportable 08/30/20 00:15 RBC Morphology Not Reportable 08/30/20 00:15 Dimorphic RBCs Not Reportable 08/30/20 00:15 Polychromasia Not Reportable 08/30/20 00:15 Hypochromasia Not Reportable 08/30/20 00:15 Poikilocytosis Not Reportable 08/30/20 00:15 Anisocytosis 1+ 08/30/20 00:15 Microcytosis Not Reportable 08/30/20 00:15 Macrocytosis Not Reportable 08/30/20 00:15 Spherocytes Not Reportable 08/30/20 00:15 Pappenheimer Bodies Not Reportable 08/30/20 00:15 Sickle Cells Not Reportable 08/30/20 00:15 Target Cells Not Reportable 08/30/20 00:15 Tear Drop Cells Not Reportable 08/30/20 00:15 Ovalocytes Not Reportable 08/30/20 00:15 Helmet Cells Not Reportable 08/30/20 00:15 Anton-[place] Bodies Not Reportable 08/30/20 00:15 Schriever Rings Not Reportable 08/30/20 00:15 [place] Cells Not Reportable 08/30/20 00:15 Bite Cells Not Reportable 08/30/20 00:15 Crenated Cell Not Reportable 08/30/20 00:15 Elliptocytes Not Reportable 08/30/20 00:15 Acanthocytes (Spur) Not Reportable 08/30/20 00:15 Rouleaux Not Reportable 08/30/20 00:15 Hemoglobin C Crystals Not Reportable 08/30/20 00:15 Schistocytes Not Reportable 08/30/20 00:15 Malaria parasites Not Reportable 08/30/20 00:15 Maurice Bodies Not Reportable 08/30/20 00:15 Hem Pathologist Commnt No 08/30/20 00:15 PT 12.8 Sec. (12.2-14.9) 08/31/20 05:45 INR 0.90 (0.87-1.13) 08/31/20 05:45 D-Dimer > 78775 ng/mlDDU (0-234) H 08/30/20 03:10 ABG pH 7.506 pH Units (7.350-7.450) H 09/02/20 03:40 POC ABG pCO2 35.9 mmHg (32.0-48.0) 09/01/20 03:13 ABG pCO2 38.0 mm Hg 09/02/20 03:40 POC ABG pO2 89.7 mmHg (83-108) 09/01/20 03:13 ABG pO2 83.1 mm Hg (80.0-90.0) 09/02/20 03:40 POC ABG HCO3 28.6 09/01/20 03:13 ABG HCO3 29.4 mmol/L (20.0-26.0) H 09/02/20 03:40 ABG O2 Saturation 97.2 % (95.0-99.0) 09/02/20 03:40 ABG O2 Content 11.2 (0.0-44) 09/02/20 03:40 POC ABG Base Excess 5.5 09/01/20 03:13 ABG Base Excess 5.9 mmol/L (-2.0-3.0) H 09/02/20 03:40 ABG Hemoglobin 8.3 gm/dl (12.0-16.0) L 09/02/20 03:40 ABG Oxyhemoglobin 95.9 (94-98) 09/01/20 03:13 ABG Carboxyhemoglobin 1.9 % (0.0-5.0) 09/02/20 03:40 ABG Methemoglobin 0.5 % (0.0-1.5) 09/02/20 03:40 ABG Sodium 134.7 mmol/L (136.0-145.0) L 09/01/20 03:13 ABG Potassium 3.7 mmol/L (3.40-4.50) 09/01/20 03:13 ABG Chloride 94.0 mmol/L (98-107) L 09/01/20 03:13 ABG Glucose 441 mg/dL (65-95) H 09/01/20 03:13 Oxyhemoglobin 94.8 % (95.0-99.0) L 09/02/20 03:40 Carboxyhemoglobin 1.2 (0.5-1.5) 09/01/20 03:13 FiO2 30 % 09/02/20 03:40 FiO2 % 30.0 09/01/20 03:13 Sodium 136 mmol/L (137-145) L 09/03/20 04:12 Potassium 4.1 mmol/L (3.6-5.0) 09/03/20 04:12 Chloride 90.3 mmol/L (98-107) L 09/03/20 04:12 Carbon Dioxide 29 mmol/L (22-30) 09/03/20 04:12 Anion Gap 21 mmol/L 09/03/20 04:12 BUN 79 mg/dL (7-17) H 09/03/20 04:12 Creatinine 8.1 mg/dL (0.6-1.2) H 09/03/20 04:12 Estimated GFR 6 ml/min 09/03/20 04:12 BUN/Creatinine Ratio 10 % 09/03/20 04:12 Glucose 223 mg/dL (65-100) H 09/03/20 04:12 POC Glucose 216 mg/dL (70-105) H 09/03/20 11:36 Calcium 7.1 mg/dL (8.4-10.2) L 09/03/20 04:12 Phosphorus 11.50 mg/dL (2.5-4.5) H 08/30/20 00:15 Magnesium 3.80 mg/dL (1.7-2.3) H 08/30/20 00:15 Ferritin 830.0 ng/mL (10.0-200.0) H 08/30/20 03:10 Total Bilirubin 0.40 mg/dL (0.1-1.2) 08/30/20 15:03 AST 68 units/L (5-40) H 08/30/20 15:03 ALT 41 units/L (7-56) 08/30/20 15:03 Alkaline Phosphatase 364 units/L (35-129) H 08/30/20 15:03 Lactate Dehydrogenase 400 units/L (91-180) H 08/30/20 03:10 Troponin T 0.085 ng/mL (0.00-0.029) H 08/30/20 00:15 C-Reactive Protein 0.20 mg/dL (0.00-1.30) 08/30/20 03:10 Total Protein 6.4 g/dL (6.3-8.2) 08/30/20 15:03 Albumin 3.7 g/dL (3.9-5) L 08/30/20 15:03 Albumin/Globulin Ratio 1.4 % 08/30/20 15:03 Triglycerides 61 mg/dL (2-149) 08/30/20 00:15 Cholesterol 150 mg/dL (50-199) 08/30/20 00:15 LDL Cholesterol Direct 71 mg/dL (50-130) 08/30/20 00:15 HDL Cholesterol 66 mg/dL (40-59) H 08/30/20 00:15 Cholesterol/HDL Ratio 2.27 % 08/30/20 00:15 Procalcitonin 4.16 ng/mL (<0.15) 08/30/20 03:10 Arterial Blood Glucose 441 mg/dL (65-95) H 09/01/20 03:13 Arterial Blood Ionized Calcium 3.8 mg/dL (4.6-5.3) L 09/01/20 03:13 Coronavirus (PCR) Negative (Negative) 08/30/20 Unknown Hepatitis A IgM Ab Non-reactive (NonReactive) 08/30/20 07:35 Hep Bs Antigen Non-reactive (Negative) 08/30/20 07:35 Hep B Core IgM Ab Non-reactive (NonReactive) 08/30/20 07:35 Hepatitis C Antibody Non-reactive (NonReactive) 08/30/20 07:35 Microbiology: Microbiology 08/30/20 18:15 Peripheral/Venous Blood Culture - Preliminary NO GROWTH AFTER 72 HOURS 08/30/20 18:15 Peripheral/Venous Blood Culture - Preliminary NO GROWTH AFTER 72 HOURS Johns/IV: Voiding Method Incontinent Active Medications - Current Medications Current Medications: Generic Name Dose Route Start Last Admin Trade Name Freq PRN Reason Stop Dose Admin Acetaminophen 650 mg 09/01/20 00:27 09/03/20 00:38 Acetaminophen 325 Mg/10.15 Ml Oral Liqd Unit Dose FEEDTUBE 650 mg Q6H PRN Administration Non Cardiac Pain or Temp>100.5 Amlodipine Besylate 10 mg 09/03/20 11:00 09/03/20 11:35 Amlodipine 10 Mg Tab PO 10 mg QDAY ANIYAH Administration Lipase/Protease/Amylase 1 each 08/30/20 14:27 Lipase 10,500/Protease 25,000/Amylase 43,750 (Units) Dr Duran FEEDTUBE PRN PRN For Clogged Feeding Tube Dextrose 50 ml 08/30/20 19:48 Dextrose 50% In Water (25gm) 50 Ml Syringe IV Q30MIN PRN Hypoglycemia Protocol Famotidine 20 mg 09/02/20 10:00 09/03/20 13:36 Famotidine 20 Mg Tab PO 20 mg DAILY ANIYAH Administration Fentanyl 50 mcg 08/30/20 14:05 Fentanyl 100 Mcg/2 Ml Inj IV Q10MIN PRN ANALGESIA Heparin Sodium (Porcine) 5,000 unit 08/30/20 06:00 09/03/20 13:36 Heparin 5,000 Unit/1 Ml Vial SUB-Q 5,000 unit Q8HR ANIYAH Administration Hydralazine HCl 10 mg 08/31/20 18:14 09/03/20 17:08 Hydralazine 20 Mg/1 Ml Inj IV 10 mg Q4HR PRN Administration Hypertension Hydrophilic Ointment 1 applic 08/30/20 14:05 Lip Therapy Vaseline TP Q2HR PRN Dry Lips Sodium Chloride 100 mls @ 999 mls/hr 08/30/20 09:00 Nacl 0.9% IV ARMIDA PRN Hypotension Propofol 1,000 mg in 100 mls @ 2.381 mls/hr 08/30/20 13:00 08/31/20 16:39 Diprivan 10 Mg/Ml IV 0 mcg/kg/min TITR ANIYAH 0 mls/hr Titration Protocol 5 MCG/KG/MIN Meropenem 500 mg in 50 mls @ 50 mls/hr 08/30/20 14:00 09/03/20 13:37 Merrem/Ns 500 Mg/50 Ml IV 09/06/20 14:59 50 mls/hr Q24H ANIYAH Administration Fentanyl Citrate 2,000 mcg in 100 mls @ 3.969 mls/hr 08/30/20 15:00 09/01/20 15:41 Fentanyl Drip Premix IV 0 mcg/kg/hr TITR ANIYAH 0 mls/hr Titration Protocol 1 MCG/KG/HR Insulin Glargine 30 units 09/03/20 10:00 09/03/20 10:54 Insulin Glargine 100 Units/Ml SUB-Q 30 units DAILY ANIYAH Administration Insulin Human Regular 0 units 09/01/20 10:00 09/03/20 17:09 Insulin Regular, Human 100 Units/1 Ml SUB-Q 6 units Q4HR ANIYAH Administration Protocol Magnesium Hydroxide 30 ml 08/30/20 04:41 Magnesium Hydroxide (Mom) Oral Liqd Udc PO Q4H PRN Constipation Metoprolol Tartrate 50 mg 09/03/20 11:00 09/03/20 11:35 Metoprolol Tartrate 50 Mg Tab PO 50 mg BID ANIYAH Administration Multi-Ingred Cream/Lotion/Oil/Oint 1 applic 08/30/20 14:05 08/31/20 01:17 Mineral Oil/Petrolatum, White Ophth Oint 3.5 Gm OU 1 applic Q4HR PRN Administration Dry Eye(s) Nitroglycerin 0.4 mg 09/04/20 06:00 Nitroglycerin 0.4 Mg Patch 24hr TD QDAY@0600 ANIYAH Ondansetron HCl 4 mg 08/30/20 04:41 Ondansetron 4 Mg/2 Ml Inj IV Q8H PRN Nausea And Vomiting Senna/Docusate Sodium 1 tab 08/30/20 22:00 09/03/20 10:36 Sennosides/Docusate Sodium 8.6/50 Mg Tab FEEDTUBE 1 tab BID ANIYAH Administration Simple Syrup 15 ml 08/30/20 14:27 Simple Syrup 15 Ml FEEDTUBE PRN PRN Hypoglycemia Simple Syrup 30 ml 08/30/20 14:27 Simple Syrup 15 Ml FEEDTUBE PRN PRN Hypoglycemia Sodium Bicarbonate 325 mg 08/30/20 14:27 Sodium Bicarbonate 325 Mg Tab FEEDTUBE PRN PRN For Clogged Feeding Tube Sodium Chloride 10 ml 08/30/20 10:00 09/03/20 13:37 Sodium Chloride 0.9% 10 Ml Flush Syringe IV 10 ml BID ANIYAH Administration Sodium Chloride 10 ml 08/30/20 04:41 Sodium Chloride 0.9% 10 Ml Flush Syringe IV PRN PRN LINE FLUSH Nutrition/Malnutrition Assess - Dietary Evaluation Nutrition/Malnutrition Findings: Nutrition Notes Start: 08/30/20 07:40 Freq: Status: Active Protocol: Document 09/03/20 10:52 CW (Rec: 09/03/20 10:56 CW [id number]) Nutrition Notes Initial or Follow up Reassessment Current Diagnosis CKD (stage V CKD),Diabetes, Hypertension Other Pertinent Diagnosis pneu, cardiac arrest, on HD, COVID PUI Current Diet Nepro 1.8 at 35 ml/hr Labs/Tests Na 136 BUN 79 Cr 8.1 BG 223 Pertinent Medications Humulin Nitroglycerin in dextrose at 13.5 ml/hr Merrem Height 5 ft 3 in Weight 62.[address] [place] Body Weight (kg) 52.27 BMI 24.5 Weight Status Appropriate Subjective/Other Information FU for TF tolerance. Pt received HD today. TF running at goal. NOK considering hospice placement. No reports of TF intolerance. Loose stool likely related to ABTx. RD conducted reqwt d/t wt anomaly . Percent of energy/protein needs met: 100%/85% Burn Absent Trauma Absent GI Symptoms Diarrhea Current % PO Negligible Minimum of two criteria No physical signs of malnutrition #1 Nutrition Diagnosis Inadequate oral intake Diagnosis Progress(for reassessment Continues documentation) Is patient on ventilator? Yes Is Patient Ambulatory and/or Out of Bed No REE-([facility]-confined to bed) 1371.336 Calculation Used for Recommendations [facility] Additional Notes Protein: (1.2-2g/kg) 80-133g Fluid: 1 - 1.5 L Nutrition Intervention Change Diet Order: Continue Nutrition Support: Nepro 1.8 at 35 ml/hr Flush 150 ml q4h or per MD Kcal 1,512 Protein (gm) 68 Carbohydrates (gm) 135 Fat (gm) 81 Fluid (mL) 611 Goal #1 Meet at least 75% of protein and energy needs via TF Anticipated Discharge Needs: Unable to determine at this time Follow-Up By: 09/06/20 Additional Comments F/U for TF tolerance, wt
[2020-09-03] MEDS: amLODIPine 10 MG TAB PO SCH (11:35)
[2020-09-03] MEDS: METOPROLOL TARTRATE 50 MG TAB PO SCH ×2 (11:35→21:23)
--- NOTE | 2020-09-03 11:39 | Progress Note ---
Assessment and Plan Cardiac arrest with return of spontaneous circulation Acute hypoxemic respiratory failure Bilateral pneumonia, possibly aspiration Bilateral pulmonary edema End-stage renal disease, on dialysis NSTEMI Severe hyperkalemia History of multiple myeloma History of hypertension Anemia that is microcytic Elevated serum troponin - continue daily Psupp/SBT trials with full support at night - continue to titrate supplemental oxygen to maintain sPO2 89-92% - VAP bundle addressed, aspiration precautions HOB >40 - continue lung protective strategies - continue bronchodilators with pulmonary hygiene per RT - continue HD/UF for toxin and volume clearance, conservative fluid therapy as tolerated by hemodynamics - avoid nephrotoxins, renally dose all medications - continue accuchecks with glycemic control per SSI (While critically ill target blood glucose of 140-180 mg/dL; avoid hypoglycemia) - complete ABs per ID recs -currently on Meropenem to complete 8 days of therapy - Maintenance of sleep-wake cycle, avoid delirium - continue enteral nutritional support at goal rate as tolerated -VTE prophylaxis -Stress ulcer prophylaxis - PT/OT/ROM exercises - continue mobility , off loading, frequent turning to prevent pressure ulcers - discharge planning ongoing concurrently Goals of care discussions with family- patient remains full resuscitation for now. Plan for inpatient hospice per case management CONDITION: CRITICAL PROGNOSIS: GUARDED CODE STATUS: FULL CODE The high probability of a clinically significant, sudden or life-threatening deterioration of the [respiratory, cardiovascular, hematologic, renal & fabio rologic] system(s) required my full and direct attention, intervention and personal management. The aggregate critical care time was [33] minutes without overlap. Time includes spent on; [x] Data Review and interpretation [x] Patient assessment and monitoring of vital signs [x] Documentation [x] Medication orders and management Subjective Date of service: 09/03/20 Principal diagnosis: Cardiac arrest; Ac. hypoxemic resp failure; PNA; ESRD; NSTEMI; Hyperkalemia Interval history: Patient is seen today for: Cardiac arrest with ROSC; Acute hypoxemic respiratory failure; Aspiration Pneumonia; ESRD on dialysis; NSTEMI; Hyperkalemia Seen and examined at bedside; 24hour events reviewed; nursing and respiratory care staff consulted; no adverse overnight events reported to me; resting peacefully in bed; MRI confirmed anoxic injury; she remains on MVS with persistent mental status changes. Currently on HD and she is tolerating it well. No adverse overnight events reported. Discussed in MDR Objective Vital Signs - 12hr 09/02/20 09/02/20 09/03/20 23:41 23:45 00:00 Temperature 101.6 F H Pulse Rate 105 H 108 H Pulse Rate [ 110 H From Monitor] Respiratory 22 21 Rate Blood Pressure 133/49 138/48 O2 Sat by Pulse 100 100 Oximetry O2 Sat by Pulse Oximetry [ Bilateral Throughout] 09/03/20 09/03/20 09/03/20 00:15 00:30 00:45 Temperature Pulse Rate 107 H 108 H 105 H Pulse Rate [ From Monitor] Respiratory 20 22 22 Rate Blood Pressure 145/57 146/50 136/51 O2 Sat by Pulse 100 100 100 Oximetry O2 Sat by Pulse Oximetry [ Bilateral Throughout] 09/03/20 09/03/20 09/03/20 01:00 01:16 01:30 Temperature Pulse Rate 96 H 96 H 96 H Pulse Rate [ From Monitor] Respiratory 25 H 21 20 Rate Blood Pressure 134/51 135/55 135/55 O2 Sat by Pulse 100 100 100 Oximetry O2 Sat by Pulse Oximetry [ Bilateral Throughout] 09/03/20 09/03/20 09/03/20 01:46 02:00 02:07 Temperature Pulse Rate 96 H 98 H 99 H Pulse Rate [ From Monitor] Respiratory 21 22 Rate Blood Pressure 130/38 114/46 130/38 O2 Sat by Pulse 100 100 Oximetry O2 Sat by Pulse Oximetry [ Bilateral Throughout] 09/03/20 09/03/20 09/03/20 02:16 02:30 02:45 Temperature Pulse Rate 99 H 96 H 98 H Pulse Rate [ From Monitor] Respiratory 17 17 22 Rate Blood Pressure 122/57 119/52 122/48 O2 Sat by Pulse 100 100 100 Oximetry O2 Sat by Pulse Oximetry [ Bilateral Throughout] 09/03/20 09/03/20 09/03/20 03:00 03:10 03:16 Temperature 99.3 F Pulse Rate 96 H 98 H Pulse Rate [ From Monitor] Respiratory 20 19 Rate Blood Pressure 123/47 118/52 O2 Sat by Pulse 100 100 Oximetry O2 Sat by Pulse Oximetry [ Bilateral Throughout] 09/03/20 09/03/20 09/03/20 03:30 03:46 03:54 Temperature Pulse Rate 101 H 96 H 99 H Pulse Rate [ From Monitor] Respiratory 19 19 Rate Blood Pressure 123/53 133/55 135/55 O2 Sat by Pulse 100 100 100 Oximetry O2 Sat by Pulse Oximetry [ Bilateral Throughout] 09/03/20 09/03/20 09/03/20 04:00 04:15 04:30 Temperature Pulse Rate 99 H 99 H 101 H Pulse Rate [ 98 H From Monitor] Respiratory 18 19 20 Rate Blood Pressure 133/55 140/55 151/55 O2 Sat by Pulse 100 100 100 Oximetry O2 Sat by Pulse Oximetry [ Bilateral Throughout] 09/03/20 09/03/20 09/03/20 04:45 05:00 05:15 Temperature Pulse Rate 101 H 99 H 102 H Pulse Rate [ From Monitor] Respiratory 21 25 H 21 Rate Blood Pressure 143/59 135/50 139/46 O2 Sat by Pulse 100 100 100 Oximetry O2 Sat by Pulse Oximetry [ Bilateral Throughout] 09/03/20 09/03/20 09/03/20 05:30 05:45 06:00 Temperature Pulse Rate 98 H 101 H 103 H Pulse Rate [ From Monitor] Respiratory 20 21 22 Rate Blood Pressure 145/57 153/65 128/56 O2 Sat by Pulse 100 100 100 Oximetry O2 Sat by Pulse Oximetry [ Bilateral Throughout] 09/03/20 09/03/20 09/03/20 06:15 06:20 06:30 Temperature Pulse Rate 98 H 103 H 92 H Pulse Rate [ From Monitor] Respiratory 22 21 Rate Blood Pressure 141/61 141/60 142/59 O2 Sat by Pulse 100 100 Oximetry O2 Sat by Pulse Oximetry [ Bilateral Throughout] 09/03/20 09/03/20 09/03/20 06:45 07:00 07:16 Temperature 99.4 F Pulse Rate 87 96 H 95 H Pulse Rate [ From Monitor] Respiratory 22 22 23 Rate Blood Pressure 140/58 128/49 139/49 O2 Sat by Pulse 100 100 100 Oximetry O2 Sat by Pulse Oximetry [ Bilateral Throughout] 09/03/20 09/03/20 09/03/20 07:30 07:46 08:00 Temperature Pulse Rate 93 H 94 H 76 Pulse Rate [ 98 H From Monitor] Respiratory 22 22 21 Rate Blood Pressure 144/46 155/50 154/49 O2 Sat by Pulse 100 100 100 Oximetry O2 Sat by Pulse Oximetry [ Bilateral Throughout] 09/03/20 09/03/20 09/03/20 08:16 08:20 08:30 Temperature Pulse Rate 95 H 98 H 99 H Pulse Rate [ From Monitor] Respiratory 25 H 26 H 25 H Rate Blood Pressure 152/51 159/61 159/61 O2 Sat by Pulse 100 100 100 Oximetry O2 Sat by Pulse Oximetry [ Bilateral Throughout] 09/03/20 09/03/20 09/03/20 08:46 09:00 09:16 Temperature Pulse Rate 101 H 101 H 101 H Pulse Rate [ From Monitor] Respiratory 27 H 26 H 24 Rate Blood Pressure 150/51 151/51 146/50 O2 Sat by Pulse 100 100 100 Oximetry O2 Sat by Pulse Oximetry [ Bilateral Throughout] 09/03/20 09/03/20 09/03/20 09:30 09:35 09:42 Temperature 98.7 F Pulse Rate 105 H 100 H 100 H Pulse Rate [ From Monitor] Respiratory 28 H 28 H Rate Blood Pressure 155/50 147/49 135/54 O2 Sat by Pulse 100 Oximetry O2 Sat by Pulse 100 Oximetry [ Bilateral Throughout] 09/03/20 09/03/20 09/03/20 09:45 09:46 10:00 Temperature Pulse Rate 101 H 102 H 97 H Pulse Rate [ From Monitor] Respiratory 28 H 27 H Rate Blood Pressure 174/52 135/54 187/61 O2 Sat by Pulse 100 100 Oximetry O2 Sat by Pulse Oximetry [ Bilateral Throughout] 09/03/20 09/03/20 09/03/20 10:15 10:16 10:30 Temperature Pulse Rate 97 H 98 H 97 H Pulse Rate [ From Monitor] Respiratory 27 H 27 H Rate Blood Pressure 166/59 166/59 166/65 O2 Sat by Pulse 100 100 Oximetry O2 Sat by Pulse Oximetry [ Bilateral Throughout] 09/03/20 09/03/20 09/03/20 10:45 11:00 11:15 Temperature Pulse Rate 99 H 100 H 102 H Pulse Rate [ From Monitor] Respiratory 26 H Rate Blood Pressure 161/60 154/62 156/60 O2 Sat by Pulse 100 Oximetry O2 Sat by Pulse Oximetry [ Bilateral Throughout] 09/03/20 09/03/20 11:17 11:30 Temperature Pulse Rate 98 H 100 H Pulse Rate [ From Monitor] Respiratory 28 H Rate Blood Pressure 161/60 142/61 O2 Sat by Pulse 100 Oximetry O2 Sat by Pulse Oximetry [ Bilateral Throughout] Constitutional: no acute distress, other (elderly female with normal respiratory effort at rest on MVS) Eyes: non-icteric ENT: oropharynx moist, other (ETT 23 cm COLLEEN) Neck: supple, no lymphadenopathy, no JVD Effort: normal Ascultation: Bilateral: rhonchi Percussion: Bilateral: not dull Cardiovascular: regular rate and rhythm, other (S1,S2) Gastrointestinal: normoactive bowel sounds, soft, non-tender Integumentary: normal Extremities: no cyanosis, pulses normal, no ischemia or petechiae Neurologic: pupils equal and round, other (unresponsive, not obeying commands) Psychiatric: other (unable to assess re: AMS) CBC and BMP: 09/03/20 04:12 09/03/20 04:12 ABG, PT/INR, D-dimer: ABG ABG pH 7.506 pH Units (7.350-7.450) H 09/02/20 03:40 POC ABG pCO2 35.9 mmHg (32.0-48.0) 09/01/20 03:13 ABG pCO2 38.0 mm Hg 09/02/20 03:40 POC ABG pO2 89.7 mmHg (83-108) 09/01/20 03:13 ABG pO2 83.1 mm Hg (80.0-90.0) 09/02/20 03:40 POC ABG HCO3 28.6 09/01/20 03:13 ABG O2 Saturation 97.2 % (95.0-99.0) 09/02/20 03:40 PT/INR, D-dimer PT 12.8 Sec. (12.2-14.9) 08/31/20 05:45 INR 0.90 (0.87-1.13) 08/31/20 05:45 D-Dimer > 02983 ng/mlDDU (0-234) H 08/30/20 03:10 Abnormal lab findings: Abnormal Labs 08/30/20 08/30/20 08/30/20 00:14 00:15 00:15 WBC RBC 2.83 L Hgb 9.8 L Hct MCV 112 H MCH 35 H RDW 19.9 H Plt Count 95 L Lymph % (Auto) Lymph # (Auto) Seg Neutrophils % Nucleated RBC % 1.0 H Seg Neutrophils # D-Dimer ABG pH 7.199 L POC ABG pCO2 49.3 H POC ABG pO2 ABG HCO3 ABG Base Excess ABG Hemoglobin 11.9 L ABG Oxyhemoglobin 93.0 L ABG Sodium ABG Potassium 6.9 H ABG Chloride ABG Glucose 158 H Oxyhemoglobin Carboxyhemoglobin 2.8 H Sodium Potassium 7.0 H* Chloride Carbon Dioxide 18 L BUN 68 H Creatinine 8.3 H Glucose 174 H POC Glucose Calcium Phosphorus Magnesium Ferritin AST 68 H Alkaline Phosphatase 414 H Lactate Dehydrogenase Troponin T 0.085 H Total Protein 5.6 L Albumin 3.4 L HDL Cholesterol 66 H Arterial Blood Glucose 158 H Arterial Blood Ionized Calcium 08/30/20 08/30/20 08/30/20 00:15 00:15 03:10 WBC RBC Hgb Hct MCV MCH RDW Plt Count Lymph % (Auto) Lymph # (Auto) Seg Neutrophils % Nucleated RBC % Seg Neutrophils # D-Dimer 6083.16 H > 47722 H ABG pH POC ABG pCO2 POC ABG pO2 ABG HCO3 ABG Base Excess ABG Hemoglobin ABG Oxyhemoglobin ABG Sodium ABG Potassium ABG Chloride ABG Glucose Oxyhemoglobin Carboxyhemoglobin Sodium Potassium Chloride Carbon Dioxide BUN Creatinine Glucose POC Glucose Calcium Phosphorus 11.50 H Magnesium 3.80 H Ferritin AST Alkaline Phosphatase Lactate Dehydrogenase Troponin T Total Protein Albumin HDL Cholesterol Arterial Blood Glucose Arterial Blood Ionized Calcium 08/30/20 08/30/20 08/30/20 03:10 03:10 04:49 WBC RBC Hgb Hct MCV MCH RDW Plt Count Lymph % (Auto) Lymph # (Auto) Seg Neutrophils % Nucleated RBC % Seg Neutrophils # D-Dimer ABG pH POC ABG pCO2 POC ABG pO2 ABG HCO3 ABG Base Excess ABG Hemoglobin 10.8 L ABG Oxyhemoglobin ABG Sodium ABG Potassium 6.7 H ABG Chloride ABG Glucose 137 H Oxyhemoglobin Carboxyhemoglobin Sodium Potassium Chloride Carbon Dioxide BUN Creatinine Glucose 126 H POC Glucose Calcium Phosphorus Magnesium Ferritin 830.0 H AST Alkaline Phosphatase Lactate Dehydrogenase 400 H Troponin T Total Protein Albumin HDL Cholesterol Arterial Blood Glucose 137 H Arterial Blood Ionized Calcium 4.5 L 08/30/20 08/30/20 08/30/20 07:13 15:03 15:03 WBC 17.2 H RBC 3.23 L Hgb Hct MCV 108 H MCH 34 H RDW 19.4 H Plt Count 90 L Lymph % (Auto) Lymph # (Auto) Seg Neutrophils % Nucleated RBC % Seg Neutrophils # D-Dimer ABG pH POC ABG pCO2 POC ABG pO2 ABG HCO3 ABG Base Excess ABG Hemoglobin ABG Oxyhemoglobin ABG Sodium ABG Potassium ABG Chloride ABG Glucose Oxyhemoglobin Carboxyhemoglobin Sodium Potassium 8.2 H* 6.5 H* D Chloride 96.7 L Carbon Dioxide 21 L BUN 52 H Creatinine 5.7 H Glucose 220 H POC Glucose Calcium Phosphorus Magnesium Ferritin AST 68 H Alkaline Phosphatase 364 H Lactate Dehydrogenase Troponin T Total Protein Albumin 3.7 L HDL Cholesterol Arterial Blood Glucose Arterial Blood Ionized Calcium 08/30/20 08/30/20 08/31/20 17:27 21:03 04:07 WBC RBC Hgb Hct MCV MCH RDW Plt Count Lymph % (Auto) Lymph # (Auto) Seg Neutrophils % Nucleated RBC % Seg Neutrophils # D-Dimer ABG pH 7.498 H POC ABG pCO2 27.9 L POC ABG pO2 126.9 H ABG HCO3 ABG Base Excess ABG Hemoglobin 10.1 L ABG Oxyhemoglobin 98.3 H ABG Sodium 134.3 L ABG Potassium 6.7 H ABG Chloride ABG Glucose 261 H Oxyhemoglobin Carboxyhemoglobin 0.1 L Sodium Potassium Chloride Carbon Dioxide BUN Creatinine Glucose POC Glucose 223 H 230 H Calcium Phosphorus Magnesium Ferritin AST Alkaline Phosphatase Lactate Dehydrogenase Troponin T Total Protein Albumin HDL Cholesterol Arterial Blood Glucose 261 H Arterial Blood Ionized Calcium 3.6 L 08/31/20 08/31/20 08/31/20 05:01 05:45 05:45 WBC 13.1 H RBC 2.83 L Hgb 9.6 L Hct 29.8 L MCV 105 H MCH 34 H RDW 18.9 H Plt Count 88 L Lymph % (Auto) 6.9 L Lymph # (Auto) 0.9 L Seg Neutrophils % 87.8 H Nucleated RBC % Seg Neutrophils # 11.5 H D-Dimer ABG pH POC ABG pCO2 POC ABG pO2 ABG HCO3 ABG Base Excess ABG Hemoglobin ABG Oxyhemoglobin ABG Sodium ABG Potassium ABG Chloride ABG Glucose Oxyhemoglobin Carboxyhemoglobin Sodium Potassium 7.1 H* Chloride 96.7 L Carbon Dioxide BUN 74 H Creatinine 7.0 H Glucose 254 H POC Glucose 256 H Calcium 7.6 L Phosphorus Magnesium Ferritin AST Alkaline Phosphatase Lactate Dehydrogenase Troponin T Total Protein Albumin HDL Cholesterol Arterial Blood Glucose Arterial Blood Ionized Calcium 08/31/20 08/31/20 09/01/20 11:38 23:31 03:13 WBC RBC Hgb Hct MCV MCH RDW Plt Count Lymph % (Auto) Lymph # (Auto) Seg Neutrophils % Nucleated RBC % Seg Neutrophils # D-Dimer ABG pH 7.519 H POC ABG pCO2 POC ABG pO2 ABG HCO3 ABG Base Excess ABG Hemoglobin 9.3 L ABG Oxyhemoglobin ABG Sodium 134.7 L ABG Potassium ABG Chloride 94.0 L ABG Glucose 441 H Oxyhemoglobin Carboxyhemoglobin Sodium Potassium Chloride Carbon Dioxide BUN Creatinine Glucose POC Glucose 294 H 426 H Calcium Phosphorus Magnesium Ferritin AST Alkaline Phosphatase Lactate Dehydrogenase Troponin T Total Protein Albumin HDL Cholesterol Arterial Blood Glucose 441 H Arterial Blood Ionized Calcium 3.8 L 09/01/20 09/01/20 09/01/20 05:20 10:32 11:45 WBC RBC Hgb Hct MCV MCH RDW Plt Count Lymph % (Auto) Lymph # (Auto) Seg Neutrophils % Nucleated RBC % Seg Neutrophils # D-Dimer ABG pH POC ABG pCO2 POC ABG pO2 ABG HCO3 ABG Base Excess ABG Hemoglobin ABG Oxyhemoglobin ABG Sodium ABG Potassium ABG Chloride ABG Glucose Oxyhemoglobin Carboxyhemoglobin Sodium Potassium Chloride Carbon Dioxide BUN Creatinine Glucose POC Glucose 422 H 227 H 203 H Calcium Phosphorus Magnesium Ferritin AST Alkaline Phosphatase Lactate Dehydrogenase Troponin T Total Protein Albumin HDL Cholesterol Arterial Blood Glucose Arterial Blood Ionized Calcium 09/01/20 09/01/20 09/01/20 13:34 17:11 17:29 WBC RBC Hgb Hct MCV MCH RDW Plt Count Lymph % (Auto) Lymph # (Auto) Seg Neutrophils % Nucleated RBC % Seg Neutrophils # D-Dimer ABG pH POC ABG pCO2 POC ABG pO2 ABG HCO3 ABG Base Excess ABG Hemoglobin ABG Oxyhemoglobin ABG Sodium ABG Potassium ABG Chloride ABG Glucose Oxyhemoglobin Carboxyhemoglobin Sodium Potassium Chloride 94.5 L Carbon Dioxide BUN 29 H Creatinine 3.4 H D Glucose 241 H POC Glucose 212 H 198 H Calcium 8.2 L Phosphorus Magnesium Ferritin AST Alkaline Phosphatase Lactate Dehydrogenase Troponin T Total Protein Albumin HDL Cholesterol Arterial Blood Glucose Arterial Blood Ionized Calcium 09/01/20 09/02/20 09/02/20 21:33 03:08 03:40 WBC RBC Hgb Hct MCV MCH RDW Plt Count Lymph % (Auto) Lymph # (Auto) Seg Neutrophils % Nucleated RBC % Seg Neutrophils # D-Dimer ABG pH 7.506 H POC ABG pCO2 POC ABG pO2 ABG HCO3 29.4 H ABG Base Excess 5.9 H ABG Hemoglobin 8.3 L ABG Oxyhemoglobin ABG Sodium ABG Potassium ABG Chloride ABG Glucose Oxyhemoglobin 94.8 L Carboxyhemoglobin Sodium Potassium Chloride Carbon Dioxide BUN Creatinine Glucose POC Glucose 188 H 179 H Calcium Phosphorus Magnesium Ferritin AST Alkaline Phosphatase Lactate Dehydrogenase Troponin T Total Protein Albumin HDL Cholesterol Arterial Blood Glucose Arterial Blood Ionized Calcium 09/02/20 09/02/20 09/02/20 05:55 07:12 09:28 WBC RBC Hgb Hct MCV MCH RDW Plt Count Lymph % (Auto) Lymph # (Auto) Seg Neutrophils % Nucleated RBC % Seg Neutrophils # D-Dimer ABG pH POC ABG pCO2 POC ABG pO2 ABG HCO3 ABG Base Excess ABG Hemoglobin ABG Oxyhemoglobin ABG Sodium ABG Potassium ABG Chloride ABG Glucose Oxyhemoglobin Carboxyhemoglobin Sodium 136 L Potassium Chloride 91.6 L Carbon Dioxide BUN 52 H Creatinine 5.5 H D Glucose 176 H POC Glucose 185 H 196 H Calcium 7.7 L Phosphorus Magnesium Ferritin AST Alkaline Phosphatase Lactate Dehydrogenase Troponin T Total Protein Albumin HDL Cholesterol Arterial Blood Glucose Arterial Blood Ionized Calcium 09/02/20 09/02/20 09/02/20 11:06 13:03 17:22 WBC RBC Hgb Hct MCV MCH RDW Plt Count Lymph % (Auto) Lymph # (Auto) Seg Neutrophils % Nucleated RBC % Seg Neutrophils # D-Dimer ABG pH POC ABG pCO2 POC ABG pO2 ABG HCO3 ABG Base Excess ABG Hemoglobin ABG Oxyhemoglobin ABG Sodium ABG Potassium ABG Chloride ABG Glucose Oxyhemoglobin Carboxyhemoglobin Sodium Potassium Chloride Carbon Dioxide BUN Creatinine Glucose POC Glucose 224 H 252 H 196 H Calcium Phosphorus Magnesium Ferritin AST Alkaline Phosphatase Lactate Dehydrogenase Troponin T Total Protein Albumin HDL Cholesterol Arterial Blood Glucose Arterial Blood Ionized Calcium 09/02/20 09/03/20 09/03/20 21:13 02:02 04:12 WBC RBC Hgb Hct MCV MCH RDW Plt Count Lymph % (Auto) Lymph # (Auto) Seg Neutrophils % Nucleated RBC % Seg Neutrophils # D-Dimer ABG pH POC ABG pCO2 POC ABG pO2 ABG HCO3 ABG Base Excess ABG Hemoglobin ABG Oxyhemoglobin ABG Sodium ABG Potassium ABG Chloride ABG Glucose Oxyhemoglobin Carboxyhemoglobin Sodium 136 L Potassium Chloride 90.3 L Carbon Dioxide BUN 79 H Creatinine 8.1 H Glucose 223 H POC Glucose 204 H 205 H Calcium 7.1 L Phosphorus Magnesium Ferritin AST Alkaline Phosphatase Lactate Dehydrogenase Troponin T Total Protein Albumin HDL Cholesterol Arterial Blood Glucose Arterial Blood Ionized Calcium 09/03/20 09/03/20 09/03/20 04:12 05:35 09:28 WBC RBC 2.35 L Hgb 8.3 L Hct 25.1 L MCV 107 H MCH 35 H RDW 18.5 H Plt Count 87 L Lymph % (Auto) Lymph # (Auto) Seg Neutrophils % Nucleated RBC % Seg Neutrophils # D-Dimer ABG pH POC ABG pCO2 POC ABG pO2 ABG HCO3 ABG Base Excess ABG Hemoglobin ABG Oxyhemoglobin ABG Sodium ABG Potassium ABG Chloride ABG Glucose Oxyhemoglobin Carboxyhemoglobin Sodium Potassium Chloride Carbon Dioxide BUN Creatinine Glucose POC Glucose 219 H 202 H Calcium Phosphorus Magnesium Ferritin AST Alkaline Phosphatase Lactate Dehydrogenase Troponin T Total Protein Albumin HDL Cholesterol Arterial Blood Glucose Arterial Blood Ionized Calcium 09/03/20 11:36 WBC RBC Hgb Hct MCV MCH RDW Plt Count Lymph % (Auto) Lymph # (Auto) Seg Neutrophils % Nucleated RBC % Seg Neutrophils # D-Dimer ABG pH POC ABG pCO2 POC ABG pO2 ABG HCO3 ABG Base Excess ABG Hemoglobin ABG Oxyhemoglobin ABG Sodium ABG Potassium ABG Chloride ABG Glucose Oxyhemoglobin Carboxyhemoglobin Sodium Potassium Chloride Carbon Dioxide BUN Creatinine Glucose POC Glucose 216 H Calcium Phosphorus Magnesium Ferritin AST Alkaline Phosphatase Lactate Dehydrogenase Troponin T Total Protein Albumin HDL Cholesterol Arterial Blood Glucose Arterial Blood Ionized Calcium Chest x-ray: image reviewed Allied health notes reviewed: RT
[2020-09-03] MEDS: FAMOTIDINE 20 MG TAB PO SCH (13:36)
[2020-09-03] MEDS: MEROPENEM/NS 500 MG/50 ML 500 MG/50 ML BAG IV SCH (13:37)
--- NOTE | 2020-09-03 14:42 | Progress Note ---
Assessment and Plan Cultures: Blood cultures 08/30/2020 no growth so far Tracheal aspirate culture 08/30/2020 no growth so far A/P: 65 yo F PMH EFx ESRD on HD, multiple myeloma s/p chemo and BMT, DM2 presented after being found non-responsive. #Acute hypoxic respiratory failure: secondary to edema vs infection. Normal white count, afebrile (low temps right now). Proclacitonin likely to be falsely elevated in renal failure as it is renally excreted. Given pericardial effusion, most likely her resp failure is due to volume/hyperkalemia, however given her immunocompromised status will continue empiric antibiotics for now. #Multiple myeloma: s/p chemo and BMT. Unclear dates of these and status of remission/vaccinations. Will presume immunocompromised for now #ESRD on HD: renally dose medications #Hyperkalemia #Anoxic brain injury Recs: -Given potential for immunocompromise as above, will treat with meropenem for now. complete 8 days -No evidence of fungal cavitations on CTA. -Fevers most likely with a central component given global anoxic brain injury. Thank you for the consult, we will sign off as family is pursing hospice options. Ender Hale MD [facility], [place], [facility] ([facility]) O: [phone] F: [phone] Subjective Date of service: 09/03/20 Principal diagnosis: Cardiac arrest; Ac. hypoxemic resp failure; PNA; ESRD; NSTEMI; Hyperkalemia Interval history: Febrile last night. Family persuing hospice options. Objective - Exam Narrative Exam: Physical Exam: Constitutional: intubated, sedated Head, Ears, Nose: Normocephalic, atraumatic. External ears, nose normal Eyes: Conjunctivae/corneas clear. No icterus. No ptosis. Neck: ETT Oral: ETT Cardiovascular: S1, S2 normal. Respiratory: Good air entry, clear to auscultation bilaterally GI: Soft, non-tender; bowel sounds normal. No peritoneal signs. Musculoskeletal: No pedal edema, no cyanosis. Skin: No rash or abscess Hem/Lymphatic: No palpable cervical or supraclavicular nodes. No lymphangitis Psych: Sedated Neurological: Sedated - Constitutional Vitals: Vital Signs Temp Pulse Resp BP Pulse Ox 97.8 F 104 H 27 H 135/55 100 09/03/20 13:20 09/03/20 13:20 09/03/20 13:20 09/03/20 13:20 09/03/20 13:15 Temperature -Last 24 Hours Temperature 97.8 F Temperature 97.8 F Temperature 98.7 F Temperature 99.4 F Temperature 99.3 F Temperature 101.6 F Temperature 98.3 F Temperature 99.7 F - Labs CBC & Chem 7: 09/03/20 04:12 09/03/20 04:12 Labs: Abnormal lab results 09/02/20 09/02/20 09/02/20 Range/Units 11:06 13:03 17:22 RBC (3.65-5.03) M/mm3 Hgb (10.1-14.3) gm/dl Hct (30.3-42.9) % MCV (79-97) fl MCH (28-32) pg RDW (13.2-15.2) % Plt Count (140-440) K/mm3 Sodium (137-145) mmol/L Chloride (98-107) mmol/L BUN (7-17) mg/dL Creatinine (0.6-1.2) mg/dL Glucose (65-100) mg/dL POC Glucose 224 H 252 H 196 H (70-105) mg/dL Calcium (8.4-10.2) mg/dL 09/02/20 09/03/20 09/03/20 Range/Units 21:13 02:02 04:12 RBC (3.65-5.03) M/mm3 Hgb (10.1-14.3) gm/dl Hct (30.3-42.9) % MCV (79-97) fl MCH (28-32) pg RDW (13.2-15.2) % Plt Count (140-440) K/mm3 Sodium 136 L (137-145) mmol/L Chloride 90.3 L (98-107) mmol/L BUN 79 H (7-17) mg/dL Creatinine 8.1 H (0.6-1.2) mg/dL Glucose 223 H (65-100) mg/dL POC Glucose 204 H 205 H (70-105) mg/dL Calcium 7.1 L (8.4-10.2) mg/dL 06/09/03/20 09/03/20 Range/Units 04:12 05:35 09:28 RBC 2.35 L (3.65-5.03) M/mm3 Hgb 8.3 L (10.1-14.3) gm/dl Hct 25.1 L (30.3-42.9) % MCV 107 H (79-97) fl MCH 35 H (28-32) pg RDW 18.5 H (13.2-15.2) % Plt Count 87 L (140-440) K/mm3 Sodium (137-145) mmol/L Chloride (98-107) mmol/L BUN (7-17) mg/dL Creatinine (0.6-1.2) mg/dL Glucose (65-100) mg/dL POC Glucose 219 H 202 H (70-105) mg/dL Calcium (8.4-10.2) mg/dL 09/03/20 Range/Units 11:36 RBC (3.65-5.03) M/mm3 Hgb (10.1-14.3) gm/dl Hct (30.3-42.9) % MCV (79-97) fl MCH (28-32) pg RDW (13.2-15.2) % Plt Count (140-440) K/mm3 Sodium (137-145) mmol/L Chloride (98-107) mmol/L BUN (7-17) mg/dL Creatinine (0.6-1.2) mg/dL Glucose (65-100) mg/dL POC Glucose 216 H (70-105) mg/dL Calcium (8.4-10.2) mg/dL
[2020-09-03] MEDS: hydrALAZINE 20 MG/1 ML INJ IV PRN (17:08)
[2020-09-04] MEDS: INSULIN REGULAR, HUMAN 100 UNITS/1 ML SUB-Q SCH ×7 (01:40→22:00)
[2020-09-04] MEDS: ACETAMINOPHEN 325 MG/10.15 ML ORAL LIQD UNIT DOSE FEEDTUBE PRN (04:34)
[2020-09-04] MEDS: hydrALAZINE 20 MG/1 ML INJ IV PRN (04:34)
[2020-09-04] MEDS: NITROGLYCERIN 0.4 MG PATCH 24HR TD SCH (05:46)
[2020-09-04] MEDS: HEPARIN 5,000 UNIT/1 ML VIAL SUB-Q SCH ×3 (05:46→21:42)
--- NOTE | 2020-09-04 08:46 | Progress Note ---
Assessment and Plan Cardiac arrest with return of spontaneous circulation Acute hypoxemic respiratory failure Bilateral pneumonia, possibly aspiration Bilateral pulmonary edema End-stage renal disease, on dialysis NSTEMI Severe hyperkalemia History of multiple myeloma History of hypertension Anemia that is microcytic Elevated serum troponin Prn Ativan for seizure activity Add Keppra to therapy - continue daily Psupp/SBT trials with full support at night - continue to titrate supplemental oxygen to maintain sPO2 89-92% - VAP bundle addressed, aspiration precautions HOB >40 - continue lung protective strategies - continue bronchodilators with pulmonary hygiene per RT - continue HD/UF for toxin and volume clearance, conservative fluid therapy as tolerated by hemodynamics - continue to avoid nephrotoxins, renally dose all medications - continue accuchecks with glycemic control per SSI (While critically ill target blood glucose of 140-180 mg/dL; avoid hypoglycemia) - complete ABs per ID recs -currently on Meropenem to complete 8 days of therapy - continue enteral nutritional support at goal rate as tolerated -VTE prophylaxis -Stress ulcer prophylaxis - PT/OT/ROM exercises - continue mobility , off loading, frequent turning to prevent pressure ulcers - discharge planning ongoing concurrently Goals of care discussions with family- patient remains full resuscitation for now. Plan for inpatient hospice CONDITION: CRITICAL PROGNOSIS: GUARDED CODE STATUS: FULL CODE The high probability of a clinically significant, sudden or life-threatening deterioration of the [respiratory, cardiovascular, hematologic, renal & neuro logic] system(s) required my full and direct attention, intervention and personal management. The aggregate critical care time was [33] minutes without overlap. Time includes spent on; [x] Data Review and interpretation [x] Patient assessment and monitoring of vital signs [x] Documentation [x] Medication orders and management Subjective Date of service: 08/28/20 Principal diagnosis: Cardiac arrest; Ac. hypoxemic resp failure; PNA; ESRD; NSTEMI; Hyperkalemia Interval history: Patient is seen today for: Cardiac arrest with ROSC; Acute hypoxemic respiratory failure; Aspiration Pneumonia; ESRD on dialysis; NSTEMI; Hyperkalemia Seen and examined at bedside; 24hour events reviewed; nursing and respiratory care staff consulted; no adverse overnight events reported to me; resting peacefully in bed; MRI confirmed anoxic injury; she remains on MVS with persistent mental status changes.Appears to be having seizure activity, orofacial . Seen with PU[employer]ER Objective Vital Signs - 12hr 09/03/20 09/03/2009/03/21 21:00 21:15 21:23 Temperature Pulse Rate 81 90 87 Pulse Rate [ From Monitor] Respiratory 20 26 H Rate Blood Pressure 136/47 136/47 136/47 O2 Sat by Pulse 100 100 Oximetry 09/03/20 09/03/20 09/03/20 21:31 21:45 22:00 Temperature Pulse Rate 82 87 76 Pulse Rate [ From Monitor] Respiratory 24 26 H 22 Rate Blood Pressure 128/44 128/44 146/46 O2 Sat by Pulse 100 96 100 Oximetry 09/03/20 09/03/20 09/03/20 22:15 22:31 22:45 Temperature Pulse Rate 86 72 81 Pulse Rate [ From Monitor] Respiratory 22 24 25 H Rate Blood Pressure 146/46 146/46 146/46 O2 Sat by Pulse 100 100 100 Oximetry 09/03/20 09/03/20 09/03/20 23:00 23:15 23:21 Temperature Pulse Rate 73 77 74 Pulse Rate [ From Monitor] Respiratory 22 22 24 Rate Blood Pressure 153/53 153/53 153/53 O2 Sat by Pulse 100 100 100 Oximetry 09/03/20 09/03/20 09/03/20 23:27 23:31 23:45 Temperature Pulse Rate 92 H 92 H 79 Pulse Rate [ From Monitor] Respiratory 24 21 Rate Blood Pressure 153/53 153/53 153/53 O2 Sat by Pulse 100 100 100 Oximetry 09/04/20 09/04/20 09/04/20 00:00 00:15 00:31 Temperature 98 F Pulse Rate 84 81 86 Pulse Rate [ 98 H From Monitor] Respiratory 24 26 H 26 H Rate Blood Pressure 160/55 160/55 160/55 O2 Sat by Pulse 100 98 97 Oximetry 09/04/20 09/04/20 09/04/20 00:45 01:01 01:15 Temperature Pulse Rate 83 84 92 H Pulse Rate [ From Monitor] Respiratory 25 H 22 24 Rate Blood Pressure 153/53 161/52 161/52 O2 Sat by Pulse 97 99 99 Oximetry 09/04/20 09/04/20 09/04/20 01:31 01:45 02:01 Temperature Pulse Rate 88 94 H 92 H Pulse Rate [ From Monitor] Respiratory 21 24 27 H Rate Blood Pressure 161/52 161/52 157/51 O2 Sat by Pulse 100 100 100 Oximetry 06/09/04/20 09/04/20 02:15 02:31 02:45 Temperature Pulse Rate 95 H 91 H 97 H Pulse Rate [ From Monitor] Respiratory 26 H 22 27 H Rate Blood Pressure 157/51 157/51 157/51 O2 Sat by Pulse 100 100 100 Oximetry 09/04/20 09/04/20 09/04/20 03:01 03:15 03:31 Temperature Pulse Rate 93 H 95 H 92 H Pulse Rate [ From Monitor] Respiratory 27 H 22 21 Rate Blood Pressure 170/56 170/56 170/56 O2 Sat by Pulse 100 100 100 Oximetry 09/04/20 09/04/20 09/04/20 03:45 03:57 04:00 Temperature 101.7 F H Pulse Rate 94 H 103 H 100 H Pulse Rate [ 98 H From Monitor] Respiratory 22 21 Rate Blood Pressure 170/56 170/56 O2 Sat by Pulse 100 98 100 Oximetry 09/04/20 09/04/20 09/04/20 04:01 04:15 04:31 Temperature Pulse Rate 97 H 103 H 101 H Pulse Rate [ From Monitor] Respiratory 27 H 24 20 Rate Blood Pressure 170/56 93/57 93/57 O2 Sat by Pulse 98 99 100 Oximetry 09/04/20 09/04/20 09/04/20 04:34 04:45 05:01 Temperature Pulse Rate 100 H 102 H 99 H Pulse Rate [ From Monitor] Respiratory 30 H 30 H Rate Blood Pressure 177/48 177/48 177/48 O2 Sat by Pulse 96 99 Oximetry 09/04/20 09/04/20 09/04/20 05:15 05:31 05:45 Temperature Pulse Rate 100 H 100 H 100 H Pulse Rate [ From Monitor] Respiratory 25 H 28 H 32 H Rate Blood Pressure 177/48 177/48 177/48 O2 Sat by Pulse 100 94 95 Oximetry 09/04/20 09/04/20 09/04/20 05:46 06:00 06:15 Temperature Pulse Rate 102 H 99 H 99 H Pulse Rate [ From Monitor] Respiratory 30 H 29 H Rate Blood Pressure 177/48 177/48 201/42 O2 Sat by Pulse 97 90 Oximetry 09/04/20 09/04/20 09/04/20 06:30 06:45 06:49 Temperature 98.8 F Pulse Rate 97 H 99 H Pulse Rate [ From Monitor] Respiratory 20 27 H Rate Blood Pressure 113/40 113/40 O2 Sat by Pulse 100 97 Oximetry 09/04/20 09/04/20 09/04/20 07:00 07:15 07:31 Temperature Pulse Rate 102 H 99 H 100 H Pulse Rate [ From Monitor] Respiratory 27 H 27 H 26 H Rate Blood Pressure 123/45 123/45 130/44 O2 Sat by Pulse 98 97 97 Oximetry 09/04/20 09/04/20 09/04/20 07:45 08:00 08:01 Temperature 99.2 F Pulse Rate 100 H 102 H Pulse Rate [ From Monitor] Respiratory 27 H 25 H Rate Blood Pressure 130/44 130/44 O2 Sat by Pulse 97 98 Oximetry 09/04/20 09/04/20 08:15 08:31 Temperature Pulse Rate 101 H 94 H Pulse Rate [ From Monitor] Respiratory 22 28 H Rate Blood Pressure 130/44 147/46 O2 Sat by Pulse 100 91 Oximetry Constitutional: no acute distress, other (elderly female with normal respiratory effort at rest on MVS) Eyes: non-icteric ENT: oropharynx moist, other (ETT 23 cm COLLEEN) Neck: supple, no lymphadenopathy, no JVD Effort: normal Ascultation: Bilateral: rhonchi Percussion: Bilateral: not dull Cardiovascular: regular rate and rhythm, other (S1,S2) Gastrointestinal: normoactive bowel sounds, soft, non-tender Integumentary: normal Extremities: no cyanosis, pulses normal, no ischemia or petechiae Neurologic: pupils equal and round, other (unresponsive, not obeying commands) Psychiatric: other (unable to assess re: AMS) CBC and BMP: 09/03/20 04:12 09/03/20 04:12 ABG, PT/INR, D-dimer: ABG ABG pH 7.506 pH Units (7.350-7.450) H 09/02/20 03:40 POC ABG pCO2 35.9 mmHg (32.0-48.0) 09/01/20 03:13 ABG pCO2 38.0 mm Hg 09/02/20 03:40 POC ABG pO2 89.7 mmHg (83-108) 09/01/20 03:13 ABG pO2 83.1 mm Hg (80.0-90.0) 09/02/20 03:40 POC ABG HCO3 28.6 09/01/20 03:13 ABG O2 Saturation 97.2 % (95.0-99.0) 09/02/20 03:40 PT/INR, D-dimer PT 12.8 Sec. (12.2-14.9) 08/31/20 05:45 INR 0.90 (0.87-1.13) 08/31/20 05:45 D-Dimer > 44586 ng/mlDDU (0-234) H 08/30/20 03:10 Abnormal lab findings: Abnormal Labs 08/30/20 08/30/20 08/30/20 00:14 00:15 00:15 WBC RBC 2.83 L Hgb 9.8 L Hct MCV 112 H MCH 35 H RDW 19.9 H Plt Count 95 L Lymph % (Auto) Lymph # (Auto) Seg Neutrophils % Nucleated RBC % 1.0 H Seg Neutrophils # D-Dimer ABG pH 7.199 L POC ABG pCO2 49.3 H POC ABG pO2 ABG HCO3 ABG Base Excess ABG Hemoglobin 11.9 L ABG Oxyhemoglobin 93.0 L ABG Sodium ABG Potassium 6.9 H ABG Chloride ABG Glucose 158 H Oxyhemoglobin Carboxyhemoglobin 2.8 H Sodium Potassium 7.0 H* Chloride Carbon Dioxide 18 L BUN 68 H Creatinine 8.3 H Glucose 174 H POC Glucose Calcium Phosphorus Magnesium Ferritin AST 68 H Alkaline Phosphatase 414 H Lactate Dehydrogenase Troponin T 0.085 H Total Protein 5.6 L Albumin 3.4 L HDL Cholesterol 66 H Arterial Blood Glucose 158 H Arterial Blood Ionized Calcium 08/30/20 08/30/20 08/30/20 00:15 00:15 03:10 WBC RBC Hgb Hct MCV MCH RDW Plt Count Lymph % (Auto) Lymph # (Auto) Seg Neutrophils % Nucleated RBC % Seg Neutrophils # D-Dimer 6083.16 H > 69785 H ABG pH POC ABG pCO2 POC ABG pO2 ABG HCO3 ABG Base Excess ABG Hemoglobin ABG Oxyhemoglobin ABG Sodium ABG Potassium ABG Chloride ABG Glucose Oxyhemoglobin Carboxyhemoglobin Sodium Potassium Chloride Carbon Dioxide BUN Creatinine Glucose POC Glucose Calcium Phosphorus 11.50 H Magnesium 3.80 H Ferritin AST Alkaline Phosphatase Lactate Dehydrogenase Troponin T Total Protein Albumin HDL Cholesterol Arterial Blood Glucose Arterial Blood Ionized Calcium 08/30/20 08/30/20 08/30/20 03:10 03:10 04:49 WBC RBC Hgb Hct MCV MCH RDW Plt Count Lymph % (Auto) Lymph # (Auto) Seg Neutrophils % Nucleated RBC % Seg Neutrophils # D-Dimer ABG pH POC ABG pCO2 POC ABG pO2 ABG HCO3 ABG Base Excess ABG Hemoglobin 10.8 L ABG Oxyhemoglobin ABG Sodium ABG Potassium 6.7 H ABG Chloride ABG Glucose 137 H Oxyhemoglobin Carboxyhemoglobin Sodium Potassium Chloride Carbon Dioxide BUN Creatinine Glucose 126 H POC Glucose Calcium Phosphorus Magnesium Ferritin 830.0 H AST Alkaline Phosphatase Lactate Dehydrogenase 400 H Troponin T Total Protein Albumin HDL Cholesterol Arterial Blood Glucose 137 H Arterial Blood Ionized Calcium 4.5 L 08/30/20 08/30/20 08/30/20 07:13 15:03 15:03 WBC 17.2 H RBC 3.23 L Hgb Hct MCV 108 H MCH 34 H RDW 19.4 H Plt Count 90 L Lymph % (Auto) Lymph # (Auto) Seg Neutrophils % Nucleated RBC % Seg Neutrophils # D-Dimer ABG pH POC ABG pCO2 POC ABG pO2 ABG HCO3 ABG Base Excess ABG Hemoglobin ABG Oxyhemoglobin ABG Sodium ABG Potassium ABG Chloride ABG Glucose Oxyhemoglobin Carboxyhemoglobin Sodium Potassium 8.2 H* 6.5 H* D Chloride 96.7 L Carbon Dioxide 21 L BUN 52 H Creatinine 5.7 H Glucose 220 H POC Glucose Calcium Phosphorus Magnesium Ferritin AST 68 H Alkaline Phosphatase 364 H Lactate Dehydrogenase Troponin T Total Protein Albumin 3.7 L HDL Cholesterol Arterial Blood Glucose Arterial Blood Ionized Calcium 08/30/20 08/30/20 08/31/20 17:27 21:03 04:07 WBC RBC Hgb Hct MCV MCH RDW Plt Count Lymph % (Auto) Lymph # (Auto) Seg Neutrophils % Nucleated RBC % Seg Neutrophils # D-Dimer ABG pH 7.498 H POC ABG pCO2 27.9 L POC ABG pO2 126.9 H ABG HCO3 ABG Base Excess ABG Hemoglobin 10.1 L ABG Oxyhemoglobin 98.3 H ABG Sodium 134.3 L ABG Potassium 6.7 H ABG Chloride ABG Glucose 261 H Oxyhemoglobin Carboxyhemoglobin 0.1 L Sodium Potassium Chloride Carbon Dioxide BUN Creatinine Glucose POC Glucose 223 H 230 H Calcium Phosphorus Magnesium Ferritin AST Alkaline Phosphatase Lactate Dehydrogenase Troponin T Total Protein Albumin HDL Cholesterol Arterial Blood Glucose 261 H Arterial Blood Ionized Calcium 3.6 L 08/31/20 08/31/20 08/31/20 05:01 05:45 05:45 WBC 13.1 H RBC 2.83 L Hgb 9.6 L Hct 29.8 L MCV 105 H MCH 34 H RDW 18.9 H Plt Count 88 L Lymph % (Auto) 6.9 L Lymph # (Auto) 0.9 L Seg Neutrophils % 87.8 H Nucleated RBC % Seg Neutrophils # 11.5 H D-Dimer ABG pH POC ABG pCO2 POC ABG pO2 ABG HCO3 ABG Base Excess ABG Hemoglobin ABG Oxyhemoglobin ABG Sodium ABG Potassium ABG Chloride ABG Glucose Oxyhemoglobin Carboxyhemoglobin Sodium Potassium 7.1 H* Chloride 96.7 L Carbon Dioxide BUN 74 H Creatinine 7.0 H Glucose 254 H POC Glucose 256 H Calcium 7.6 L Phosphorus Magnesium Ferritin AST Alkaline Phosphatase Lactate Dehydrogenase Troponin T Total Protein Albumin HDL Cholesterol Arterial Blood Glucose Arterial Blood Ionized Calcium 08/31/20 08/31/20 09/01/20 11:38 23:31 03:13 WBC RBC Hgb Hct MCV MCH RDW Plt Count Lymph % (Auto) Lymph # (Auto) Seg Neutrophils % Nucleated RBC % Seg Neutrophils # D-Dimer ABG pH 7.519 H POC ABG pCO2 POC ABG pO2 ABG HCO3 ABG Base Excess ABG Hemoglobin 9.3 L ABG Oxyhemoglobin ABG Sodium 134.7 L ABG Potassium ABG Chloride 94.0 L ABG Glucose 441 H Oxyhemoglobin Carboxyhemoglobin Sodium Potassium Chloride Carbon Dioxide BUN Creatinine Glucose POC Glucose 294 H 426 H Calcium Phosphorus Magnesium Ferritin AST Alkaline Phosphatase Lactate Dehydrogenase Troponin T Total Protein Albumin HDL Cholesterol Arterial Blood Glucose 441 H Arterial Blood Ionized Calcium 3.8 L 09/01/20 09/01/20 09/01/20 05:20 10:32 11:45 WBC RBC Hgb Hct MCV MCH RDW Plt Count Lymph % (Auto) Lymph # (Auto) Seg Neutrophils % Nucleated RBC % Seg Neutrophils # D-Dimer ABG pH POC ABG pCO2 POC ABG pO2 ABG HCO3 ABG Base Excess ABG Hemoglobin ABG Oxyhemoglobin ABG Sodium ABG Potassium ABG Chloride ABG Glucose Oxyhemoglobin Carboxyhemoglobin Sodium Potassium Chloride Carbon Dioxide BUN Creatinine Glucose POC Glucose 422 H 227 H 203 H Calcium Phosphorus Magnesium Ferritin AST Alkaline Phosphatase Lactate Dehydrogenase Troponin T Total Protein Albumin HDL Cholesterol Arterial Blood Glucose Arterial Blood Ionized Calcium 09/01/20 09/01/20 09/01/20 13:34 17:11 17:29 WBC RBC Hgb Hct MCV MCH RDW Plt Count Lymph % (Auto) Lymph # (Auto) Seg Neutrophils % Nucleated RBC % Seg Neutrophils # D-Dimer ABG pH POC ABG pCO2 POC ABG pO2 ABG HCO3 ABG Base Excess ABG Hemoglobin ABG Oxyhemoglobin ABG Sodium ABG Potassium ABG Chloride ABG Glucose Oxyhemoglobin Carboxyhemoglobin Sodium Potassium Chloride 94.5 L Carbon Dioxide BUN 29 H Creatinine 3.4 H D Glucose 241 H POC Glucose 212 H 198 H Calcium 8.2 L Phosphorus Magnesium Ferritin AST Alkaline Phosphatase Lactate Dehydrogenase Troponin T Total Protein Albumin HDL Cholesterol Arterial Blood Glucose Arterial Blood Ionized Calcium 09/01/20 09/02/20 09/02/20 21:33 03:08 03:40 WBC RBC Hgb Hct MCV MCH RDW Plt Count Lymph % (Auto) Lymph # (Auto) Seg Neutrophils % Nucleated RBC % Seg Neutrophils # D-Dimer ABG pH 7.506 H POC ABG pCO2 POC ABG pO2 ABG HCO3 29.4 H ABG Base Excess 5.9 H ABG Hemoglobin 8.3 L ABG Oxyhemoglobin ABG Sodium ABG Potassium ABG Chloride ABG Glucose Oxyhemoglobin 94.8 L Carboxyhemoglobin Sodium Potassium Chloride Carbon Dioxide BUN Creatinine Glucose POC Glucose 188 H 179 H Calcium Phosphorus Magnesium Ferritin AST Alkaline Phosphatase Lactate Dehydrogenase Troponin T Total Protein Albumin HDL Cholesterol Arterial Blood Glucose Arterial Blood Ionized Calcium 09/02/20 09/02/20 09/02/20 05:55 07:12 09:28 WBC RBC Hgb Hct MCV MCH RDW Plt Count Lymph % (Auto) Lymph # (Auto) Seg Neutrophils % Nucleated RBC % Seg Neutrophils # D-Dimer ABG pH POC ABG pCO2 POC ABG pO2 ABG HCO3 ABG Base Excess ABG Hemoglobin ABG Oxyhemoglobin ABG Sodium ABG Potassium ABG Chloride ABG Glucose Oxyhemoglobin Carboxyhemoglobin Sodium 136 L Potassium Chloride 91.6 L Carbon Dioxide BUN 52 H Creatinine 5.5 H D Glucose 176 H POC Glucose 185 H 196 H Calcium 7.7 L Phosphorus Magnesium Ferritin AST Alkaline Phosphatase Lactate Dehydrogenase Troponin T Total Protein Albumin HDL Cholesterol Arterial Blood Glucose Arterial Blood Ionized Calcium 09/02/20 09/02/20 09/02/20 11:06 13:03 17:22 WBC RBC Hgb Hct MCV MCH RDW Plt Count Lymph % (Auto) Lymph # (Auto) Seg Neutrophils % Nucleated RBC % Seg Neutrophils # D-Dimer ABG pH POC ABG pCO2 POC ABG pO2 ABG HCO3 ABG Base Excess ABG Hemoglobin ABG Oxyhemoglobin ABG Sodium ABG Potassium ABG Chloride ABG Glucose Oxyhemoglobin Carboxyhemoglobin Sodium Potassium Chloride Carbon Dioxide BUN Creatinine Glucose POC Glucose 224 H 252 H 196 H Calcium Phosphorus Magnesium Ferritin AST Alkaline Phosphatase Lactate Dehydrogenase Troponin T Total Protein Albumin HDL Cholesterol Arterial Blood Glucose Arterial Blood Ionized Calcium 09/02/20 09/03/20 09/03/20 21:13 02:02 04:12 WBC RBC Hgb Hct MCV MCH RDW Plt Count Lymph % (Auto) Lymph # (Auto) Seg Neutrophils % Nucleated RBC % Seg Neutrophils # D-Dimer ABG pH POC ABG pCO2 POC ABG pO2 ABG HCO3 ABG Base Excess ABG Hemoglobin ABG Oxyhemoglobin ABG Sodium ABG Potassium ABG Chloride ABG Glucose Oxyhemoglobin Carboxyhemoglobin Sodium 136 L Potassium Chloride 90.3 L Carbon Dioxide BUN 79 H Creatinine 8.1 H Glucose 223 H POC Glucose 204 H 205 H Calcium 7.1 L Phosphorus Magnesium Ferritin AST Alkaline Phosphatase Lactate Dehydrogenase Troponin T Total Protein Albumin HDL Cholesterol Arterial Blood Glucose Arterial Blood Ionized Calcium 09/03/20 09/03/20 09/03/20 04:12 05:35 09:28 WBC RBC 2.35 L Hgb 8.3 L Hct 25.1 L MCV 107 H MCH 35 H RDW 18.5 H Plt Count 87 L Lymph % (Auto) Lymph # (Auto) Seg Neutrophils % Nucleated RBC % Seg Neutrophils # D-Dimer ABG pH POC ABG pCO2 POC ABG pO2 ABG HCO3 ABG Base Excess ABG Hemoglobin ABG Oxyhemoglobin ABG Sodium ABG Potassium ABG Chloride ABG Glucose Oxyhemoglobin Carboxyhemoglobin Sodium Potassium Chloride Carbon Dioxide BUN Creatinine Glucose POC Glucose 219 H 202 H Calcium Phosphorus Magnesium Ferritin AST Alkaline Phosphatase Lactate Dehydrogenase Troponin T Total Protein Albumin HDL Cholesterol Arterial Blood Glucose Arterial Blood Ionized Calcium 09/03/20 09/03/20 09/03/20 11:36 13:41 16:56 WBC RBC Hgb Hct MCV MCH RDW Plt Count Lymph % (Auto) Lymph # (Auto) Seg Neutrophils % Nucleated RBC % Seg Neutrophils # D-Dimer ABG pH POC ABG pCO2 POC ABG pO2 ABG HCO3 ABG Base Excess ABG Hemoglobin ABG Oxyhemoglobin ABG Sodium ABG Potassium ABG Chloride ABG Glucose Oxyhemoglobin Carboxyhemoglobin Sodium Potassium Chloride Carbon Dioxide BUN Creatinine Glucose POC Glucose 216 H 224 H 298 H Calcium Phosphorus Magnesium Ferritin AST Alkaline Phosphatase Lactate Dehydrogenase Troponin T Total Protein Albumin HDL Cholesterol Arterial Blood Glucose Arterial Blood Ionized Calcium 09/03/20 09/04/20 09/04/20 20:49 00:23 05:28 WBC RBC Hgb Hct MCV MCH RDW Plt Count Lymph % (Auto) Lymph # (Auto) Seg Neutrophils % Nucleated RBC % Seg Neutrophils # D-Dimer ABG pH POC ABG pCO2 POC ABG pO2 ABG HCO3 ABG Base Excess ABG Hemoglobin ABG Oxyhemoglobin ABG Sodium ABG Potassium ABG Chloride ABG Glucose Oxyhemoglobin Carboxyhemoglobin Sodium Potassium Chloride Carbon Dioxide BUN Creatinine Glucose POC Glucose 228 H 228 H 283 H Calcium Phosphorus Magnesium Ferritin AST Alkaline Phosphatase Lactate Dehydrogenase Troponin T Total Protein Albumin HDL Cholesterol Arterial Blood Glucose Arterial Blood Ionized Calcium Allied health notes reviewed: RT
[2020-09-04] MEDS: INSULIN LISPRO 100 UNIT/ML SUB-Q SCH ×3 (08:59→21:23)
[2020-09-04] MEDS: INSULIN GLARGINE 100 UNITS/ML SUB-Q SCH (09:07)
[2020-09-04] MEDS: METOPROLOL TARTRATE 50 MG TAB PO SCH ×2 (09:07→21:31)
[2020-09-04] MEDS: amLODIPine 10 MG TAB PO SCH (09:07)
[2020-09-04] MEDS: FAMOTIDINE 20 MG TAB PO SCH (09:08)
[2020-09-04] MEDS: SENNOSIDES/DOCUSATE SODIUM 8.6/50 MG TAB FEEDTUBE SCH ×2 (09:08→21:31)
--- NOTE | 2020-09-04 09:14 | Progress Note ---
Assessment and Plan Out of hospital cardiopulmonary arrest Brain MRI is consistent with anoxic brain injury normal LVEF 55-60% by echocardiogram no evidence of DVT by LE duplex End-stage renal disease on hemodialysis Hx of multiple myeloma s/p chemotherapy Hypertension Diabetes Continue intravenous nitro drip and intravenous metoprolol for optimal hyper tension management. Supportive cardiac management. Family leaning towards hospice care Subjective Date of service: 09/04/20 Principal diagnosis: Cardiac arrest; Ac. hypoxemic resp failure; PNA; ESRD; NSTEMI; Hyperkalemia Interval history: General condition the same. Objective Vital Signs Temp Pulse Pulse Resp BP Pulse Ox Pulse Ox 09/04/20 09:07 101 H 125/47 09/04/20 08:31 94 H 28 H 147/46 91 09/04/20 08:15 101 H 22 130/44 100 09/04/20 08:01 102 H 25 H 130/44 98 09/04/20 08:00 99.2 F 102 H 22 98 09/04/20 07:45 100 H 27 H 130/44 97 09/04/20 07:31 100 H 26 H 130/44 97 09/04/20 07:15 99 H 27 H 123/45 97 09/04/20 07:00 102 H 27 H 123/45 98 09/04/20 06:49 98.8 F 09/04/20 06:45 99 H 27 H 113/40 97 09/04/20 06:30 97 H 20 113/40 100 09/04/20 06:15 99 H 29 H 201/42 90 09/04/20 06:00 99 H 30 H 177/48 97 09/04/20 05:46 102 H 177/48 09/04/20 05:45 100 H 32 H 177/48 95 09/04/20 05:31 100 H 28 H 177/48 94 09/04/20 05:15 100 H 25 H 177/48 100 09/04/20 05:01 99 H 30 H 177/48 99 09/04/20 04:45 102 H 30 H 177/48 96 09/04/20 04:34 100 H 177/48 09/04/20 04:31 101 H 20 93/57 100 09/04/20 04:15 103 H 24 93/57 99 09/04/20 04:01 97 H 27 H 170/56 98 09/04/20 04:00 101.7 F H 100 H 98 H 21 100 09/04/20 03:57 103 H 170/56 98 09/04/20 03:45 94 H 22 170/56 100 09/04/20 03:31 92 H 21 170/56 100 09/04/20 03:15 95 H 22 170/56 100 09/04/20 03:01 93 H 27 H 170/56 100 09/04/20 02:45 97 H 27 H 157/51 100 09/04/20 02:31 91 H 22 157/51 100 09/04/20 02:15 95 H 26 H 157/51 100 09/04/20 02:01 92 H 27 H 157/51 100 09/04/20 01:45 94 H 24 161/52 100 09/04/20 01:31 88 21 161/52 100 09/04/20 01:15 92 H 24 161/52 99 09/04/20 01:01 84 22 161/52 99 09/04/20 00:45 83 25 H 153/53 97 09/04/20 00:31 86 26 H 160/55 97 09/04/20 00:15 81 26 H 160/55 98 09/04/20 00:00 98 F 84 98 H 24 160/55 100 09/03/20 23:45 79 21 153/53 100 09/03/20 23:31 92 H 24 153/53 100 09/03/20 23:27 92 H 153/53 100 09/03/20 23:21 74 24 153/53 100 09/03/20 23:15 77 22 153/53 100 09/03/20 23:00 73 22 153/53 100 09/03/20 22:45 81 25 H 146/46 100 09/03/20 22:31 72 24 146/46 100 09/03/20 22:15 86 22 146/46 100 09/03/20 22:00 76 22 146/46 100 09/03/20 21:45 87 26 H 128/44 96 09/03/20 21:31 82 24 128/44 100 09/03/20 21:23 87 136/47 09/03/20 21:15 90 26 H 136/47 100 09/03/20 21:00 81 20 136/47 100 09/03/20 20:45 85 22 128/44 100 09/03/20 20:31 85 24 128/44 100 09/03/20 20:15 91 H 31 H 128/44 99 09/03/20 20:01 87 19 128/44 100 09/03/20 20:00 100.3 F H 81 98 H 21 100 09/03/20 19:45 88 21 147/51 100 09/03/20 19:31 84 32 H 147/51 99 09/03/20 19:15 84 28 H 147/51 96 09/03/20 19:07 89 147/51 98 09/03/20 19:01 94 H 34 H 147/51 99 09/03/20 18:45 105 H 32 H 150/46 100 09/03/20 18:31 116 H 33 H 150/46 100 09/03/20 18:15 120 H 31 H 150/46 100 09/03/20 18:01 121 H 31 H 150/46 97 09/03/20 17:45 119 H 31 H 148/46 100 09/03/20 17:30 102 H 30 H 148/46 100 09/03/20 17:15 104 H 31 H 158/48 96 09/03/20 17:01 106 H 29 H 158/48 100 09/03/20 16:45 97 H 30 H 157/49 95 09/03/20 16:31 97 H 28 H 157/49 100 09/03/20 16:15 98 H 29 H 149/46 100 09/03/20 16:00 97 H 98 H 30 H 158/48 97 09/03/20 15:45 95 H 28 H 142/48 100 09/03/20 15:30 95 H 28 H 142/48 100 09/03/20 15:15 94 H 28 H 100 09/03/20 15:00 93 H 29 H 122/44 100 18 14:45 92 H 28 H 122/44 100 18 14:30 93 H 28 H 105/51 100 09/03/20 14:15 95 H 29 H 102/57 100 09/03/20 14:00 98 H 26 H 98/47 100 09/03/20 13:45 106 H 27 H 89/40 99 09/03/20 13:30 105 H 27 H 145/54 100 09/03/20 13:20 97.8 F 104 H 27 H 135/55 09/03/20 13:15 102 H 26 H 94/55 100 09/03/20 13:12 100 H 114/48 09/03/20 13:00 106 H 29 H 110/49 100 09/03/20 12:45 102 H 27 H 114/49 100 09/03/20 12:30 106 H 29 H 128/48 100 09/03/20 12:15 103 H 28 H 137/54 100 09/03/20 12:00 78 98 H 21 137/54 100 09/03/20 11:45 100 H 29 H 143/56 100 09/03/20 11:30 100 H 28 H 142/61 100 09/03/20 11:17 98 H 28 H 161/60 100 09/03/20 11:15 100 H 28 H 156/60 100 09/03/20 11:00 97.8 F 98 H 29 H 154/62 100 09/03/20 10:45 99 H 26 H 161/60 100 09/03/20 10:30 97 H 27 H 166/65 100 09/03/20 10:16 98 H 27 H 166/59 100 09/03/20 10:15 97 H 166/59 09/03/20 10:00 97 H 27 H 187/61 100 09/03/20 09:46 102 H 28 H 135/54 100 09/03/20 09:45 101 H 174/52 09/03/20 09:42 100 H 135/54 09/03/20 09:35 98.7 F 100 H 28 H 147/49 100 09/03/20 09:30 105 H 28 H 155/50 100 09/03/20 09:16 101 H 24 146/50 100 - Physical Examination General: Other (unresponsive on the vent) HEENT: Positive: Other (Pupils fixed) Neck: Positive: neck supple Cardiac: Positive: Reg Rate and Rhythm Lungs: Positive: clear to auscultation Neuro: Positive: Other (Unresponsive, on the vent) Abdomen: Positive: Unremarkable, Soft Skin: Positive: Clear Extremities: Absent: edema - Allied health notes Allied health notes reviewed: RT
[2020-09-04] MEDS ORDERED: SODIUM CHLORIDE 0.9% 500 ML 500 ML ONE (09:45)
[2020-09-04] MEDS ORDERED: SODIUM CHLORIDE 0.9% 500 ML 500 ML IV ONE (10:00)
[2020-09-04] MEDS ORDERED: LORazepam 2 MG/ML VIAL IV ONE (10:00)
--- NOTE | 2020-09-04 10:13 | Progress Note ---
Assessment and Plan - Patient Problems (1) Anoxic encephalopathy Current Visit: Yes Status: Acute Plan to address problem: In the setting of cardiopulmonary arrest. No changes in her neurological status, which remains poor at this time. Pending hospice evaluation. (2) Cardiac arrest Current Visit: Yes Status: Acute Plan to address problem: s/p cardiac arrest suffered at home, with unfortunately severe anoxic encephalopathy/brain injury suffered without improvement in neurologic status. She is off all pressors and sedation at this time. Cardiology input reviewed and appreciated. Overall prognosis remains poor. (3) End-stage renal disease on hemodialysis Current Visit: Yes Status: Chronic Plan to address problem: Patient on an inpatient MWF HD schedule. Tolerated HD well yesterday. no acute indications for HD today, and with tenuous blood pressures this am, would avoid at this time. Instructed staff to avoid excess fluid boluses so as to prevent issues with fluid overload over the weekend. She did receive one time dose of NS 250 cc bolus secondary to worsening hypotension. (4) Hyperkalemia Current Visit: Yes Status: Acute (5) Multifocal pneumonia Current Visit: Yes Status: Acute Plan to address problem: Please ensure that antibiotics are dosed appropriately for her decreased renal function. (6) Pulmonary edema Current Visit: Yes Status: Acute Plan to address problem: Being corrected with UF during dialysis. No acute indications for HD today. Will monitor closely. She remains intubated, without any acute changes in vent settings at this time. Subjective Date of service: 09/04/20 Principal diagnosis: Cardiac arrest; Ac. hypoxemic resp failure; PNA; ESRD; NSTEMI; Hyperkalemia Interval history: No acute changes. Prognosis remains poor. Off pressors. Given 250 cc bolus this am. Objective - Vital Signs Vital signs: Vital Signs - 12hr 09/03/20 09/03/20 09/03/20 22:15 22:31 22:45 Temperature Pulse Rate 86 72 81 Pulse Rate [ From Monitor] Respiratory 22 24 25 H Rate Blood Pressure 146/46 146/46 146/46 O2 Sat by Pulse 100 100 100 Oximetry 09/03/20 09/03/20 09/03/20 23:00 23:15 23:21 Temperature Pulse Rate 73 77 74 Pulse Rate [ From Monitor] Respiratory 22 22 24 Rate Blood Pressure 153/53 153/53 153/53 O2 Sat by Pulse 100 100 100 Oximetry 09/03/20 09/03/2009/03/21 23:27 23:31 23:45 Temperature Pulse Rate 92 H 92 H 79 Pulse Rate [ From Monitor] Respiratory 24 21 Rate Blood Pressure 153/53 153/53 153/53 O2 Sat by Pulse 100 100 100 Oximetry 09/04/20 09/04/20 09/04/20 00:00 00:15 00:31 Temperature 98 F Pulse Rate 84 81 86 Pulse Rate [ 98 H From Monitor] Respiratory 24 26 H 26 H Rate Blood Pressure 160/55 160/55 160/55 O2 Sat by Pulse 100 98 97 Oximetry 09/04/20 09/04/20 09/04/20 00:45 01:01 01:15 Temperature Pulse Rate 83 84 92 H Pulse Rate [ From Monitor] Respiratory 25 H 22 24 Rate Blood Pressure 153/53 161/52 161/52 O2 Sat by Pulse 97 99 99 Oximetry 09/04/20 09/04/20 09/04/20 01:31 01:45 02:01 Temperature Pulse Rate 88 94 H 92 H Pulse Rate [ From Monitor] Respiratory 21 24 27 H Rate Blood Pressure 161/52 161/52 157/51 O2 Sat by Pulse 100 100 100 Oximetry 09/04/20 09/04/20 09/04/20 02:15 02:31 02:45 Temperature Pulse Rate 95 H 91 H 97 H Pulse Rate [ From Monitor] Respiratory 26 H 22 27 H Rate Blood Pressure 157/51 157/51 157/51 O2 Sat by Pulse 100 100 100 Oximetry 09/04/20 09/04/20 09/04/20 03:01 03:15 03:31 Temperature Pulse Rate 93 H 95 H 92 H Pulse Rate [ From Monitor] Respiratory 27 H 22 21 Rate Blood Pressure 170/56 170/56 170/56 O2 Sat by Pulse 100 100 100 Oximetry 09/04/20 09/04/20 09/04/20 03:45 03:57 04:00 Temperature 101.7 F H Pulse Rate 94 H 103 H 100 H Pulse Rate [ 98 H From Monitor] Respiratory 22 21 Rate Blood Pressure 170/56 170/56 O2 Sat by Pulse 100 98 100 Oximetry 09/04/20 09/04/20 09/04/20 04:01 04:15 04:31 Temperature Pulse Rate 97 H 103 H 101 H Pulse Rate [ From Monitor] Respiratory 27 H 24 20 Rate Blood Pressure 170/56 93/57 93/57 O2 Sat by Pulse 98 99 100 Oximetry 09/04/20 09/04/20 09/04/20 04:34 04:45 05:01 Temperature Pulse Rate 100 H 102 H 99 H Pulse Rate [ From Monitor] Respiratory 30 H 30 H Rate Blood Pressure 177/48 177/48 177/48 O2 Sat by Pulse 96 99 Oximetry 09/04/20 09/04/20 09/04/20 05:15 05:31 05:45 Temperature Pulse Rate 100 H 100 H 100 H Pulse Rate [ From Monitor] Respiratory 25 H 28 H 32 H Rate Blood Pressure 177/48 177/48 177/48 O2 Sat by Pulse 100 94 95 Oximetry 09/04/20 09/04/20 09/04/20 05:46 06:00 06:15 Temperature Pulse Rate 102 H 99 H 99 H Pulse Rate [ From Monitor] Respiratory 30 H 29 H Rate Blood Pressure 177/48 177/48 201/42 O2 Sat by Pulse 97 90 Oximetry 09/04/20 09/04/20 09/04/20 06:30 06:45 06:49 Temperature 98.8 F Pulse Rate 97 H 99 H Pulse Rate [ From Monitor] Respiratory 20 27 H Rate Blood Pressure 113/40 113/40 O2 Sat by Pulse 100 97 Oximetry 09/04/20 09/04/20 09/04/20 07:00 07:15 07:31 Temperature Pulse Rate 102 H 99 H 100 H Pulse Rate [ From Monitor] Respiratory 27 H 27 H 26 H Rate Blood Pressure 123/45 123/45 130/44 O2 Sat by Pulse 98 97 97 Oximetry 09/04/20 09/04/20 09/04/20 07:45 08:00 08:01 Temperature 99.2 F Pulse Rate 100 H 102 H Pulse Rate [ 102 H From Monitor] Respiratory 27 H 22 25 H Rate Blood Pressure 130/44 130/44 O2 Sat by Pulse 97 98 98 Oximetry 09/04/20 09/04/20 09/04/20 08:15 08:31 09:07 Temperature Pulse Rate 101 H 94 H 101 H Pulse Rate [ From Monitor] Respiratory 22 28 H Rate Blood Pressure 130/44 147/46 125/47 O2 Sat by Pulse 100 91 Oximetry - General Appearance General appearance: intubated EENT: ATNC Neck: no JVD, no thyromegaly Respiratory: Present: Ronchi Cardiology: regular Gastrointestinal: normal Integumentary: no rash Musculoskeletal: deferred - Lab 09/03/20 04:12 09/03/20 04:12 Most recent lab results ABG pH 7.506 pH Units (7.350-7.450) H 09/02/20 03:40 ABG pCO2 38.0 mm Hg 09/02/20 03:40 ABG pO2 83.1 mm Hg (80.0-90.0) 09/02/20 03:40 ABG HCO3 29.4 mmol/L (20.0-26.0) H 09/02/20 03:40 ABG O2 Saturation 97.2 % (95.0-99.0) 09/02/20 03:40 Calcium 7.1 mg/dL (8.4-10.2) L 09/03/20 04:12 Phosphorus 11.50 mg/dL (2.5-4.5) H 08/30/20 00:15 Magnesium 3.80 mg/dL (1.7-2.3) H 08/30/20 00:15 Medications & Allergies - Medications Allergies/Adverse Reactions: Allergies No Known Allergies Allergy (Verified 08/30/20 22:43) Home Medications: Home Medications Medication Instructions Recorded Confirmed Last Taken Type Acyclovir [Zovirax Tab] 400 mg PO BID 08/30/20 08/30/20 Unknown History Amlodipine Besylate 10 mg PO DAILY 08/30/20 08/30/20 Unknown History Furosemide [Lasix] 40 mg PO DAILY 08/30/20 08/30/20 Unknown History Gabapentin [Neurontin] 600 mg PO BID 08/30/20 08/30/20 Unknown History Imdur ER 30 mg PO DAILY 08/30/20 08/30/20 Unknown History Losartan Potassium 50 mg PO BID 08/30/20 08/30/20 Unknown History Losartan/Hydrochlorothiazide 1 each PO DAILY 08/30/20 08/30/20 Unknown History [Losartan-Hctz 100-25 mg Tab] Metoprolol Tartrate 25 mg PO BID 08/30/20 08/30/20 Unknown History Mirtazapine [Remeron] 30 mg PO HS 08/30/20 08/30/20 Unknown History Sevelamer Carbonate [Renvela] 800 mg PO TIDWM 08/30/20 08/30/20 Unknown History Vit B Complx C/Folic Acid/Zinc 0.8 mg PO DAILY 08/30/20 08/30/20 Unknown History [Dialyvite 800-Zinc 15 Tab] Zolpidem Tartrate [Edluar SUBL] 5 mg PO QHS PRN 08/30/20 08/30/20 Unknown History calcitrioL 0.5 mcg PO DAILY 08/30/20 08/30/20 Unknown History Active Medications: Generic Name Dose Route Start Last Admin Trade Name Freq PRN Reason Stop Dose Admin Acetaminophen 650 mg 09/01/20 00:27 09/04/20 04:34 Acetaminophen 325 Mg/10.15 Ml Oral Liqd Unit Dose FEEDTUBE 650 mg Q6H PRN Administration Non Cardiac Pain or Temp>100.5 Amlodipine Besylate 10 mg 09/03/20 11:00 09/04/20 09:07 Amlodipine 10 Mg Tab PO 10 mg QDAY ANIYAH Administration Lipase/Protease/Amylase 1 each 08/30/20 14:27 Lipase 10,500/Protease 25,000/Amylase 43,750 (Units) Dr Duran FEEDTUBE PRN PRN For Clogged Feeding Tube Dextrose 50 ml 08/30/20 19:48 Dextrose 50% In Water (25gm) 50 Ml Syringe IV Q30MIN PRN Hypoglycemia Protocol Famotidine 20 mg 09/02/20 10:00 09/04/20 09:08 Famotidine 20 Mg Tab PO 20 mg DAILY ANIYAH Administration Fentanyl 50 mcg 08/30/20 14:05 Fentanyl 100 Mcg/2 Ml Inj IV Q10MIN PRN ANALGESIA Heparin Sodium (Porcine) 5,000 unit 08/30/20 06:00 09/04/20 05:46 Heparin 5,000 Unit/1 Ml Vial SUB-Q 5,000 unit Q8HR ANIYAH Administration Hydralazine HCl 10 mg 08/31/20 18:14 09/04/20 04:34 Hydralazine 20 Mg/1 Ml Inj IV 10 mg Q4HR PRN Administration Hypertension Hydrophilic Ointment 1 applic 08/30/20 14:05 Lip Therapy Vaseline TP Q2HR PRN Dry Lips Sodium Chloride 100 mls @ 999 mls/hr 08/30/20 09:00 Nacl 0.9% IV ARMIDA PRN Hypotension Propofol 1,000 mg in 100 mls @ 2.381 mls/hr 08/30/20 13:00 08/31/20 16:39 Diprivan 10 Mg/Ml IV 0 mcg/kg/min TITR ANIYAH 0 mls/hr Titration Protocol 5 MCG/KG/MIN Meropenem 500 mg in 50 mls @ 50 mls/hr 08/30/20 14:00 09/03/20 13:37 Merrem/Ns 500 Mg/50 Ml IV 09/06/20 14:59 50 mls/hr Q24H ANIYAH Administration Fentanyl Citrate 2,000 mcg in 100 mls @ 3.969 mls/hr 08/30/20 15:00 09/01/20 15:41 Fentanyl Drip Premix IV 0 mcg/kg/hr TITR ANIYAH 0 mls/hr Titration Protocol 1 MCG/KG/HR Sodium Chloride 500 mls @ 999 mls/hr 09/04/20 10:00 Nacl 0.9% 500 Ml IV 09/04/20 10:30 ONCE ONE Insulin Glargine 30 units 09/03/20 10:00 09/04/20 09:07 Insulin Glargine 100 Units/Ml SUB-Q 30 units DAILY ANIYAH Administration Insulin Human Lispro 5 unit 09/04/20 08:00 09/04/20 08:59 Insulin Lispro 100 Unit/Ml SUB-Q 5 unit TID ANIYAH Administration Insulin Human Regular 0 units 09/01/20 10:00 09/04/20 05:45 Insulin Regular, Human 100 Units/1 Ml SUB-Q 6 units Q4HR [facility] Administration Protocol Magnesium Hydroxide 30 ml 08/30/20 04:41 Magnesium Hydroxide (Mom) Oral Liqd Udc PO Q4H PRN Constipation Metoprolol Tartrate 50 mg 09/03/20 11:00 09/04/20 09:07 Metoprolol Tartrate 50 Mg Tab PO 50 mg BID [facility] Administration Multi-Ingred Cream/Lotion/Oil/Oint 1 applic 08/30/20 14:05 08/31/20 01:17 Mineral Oil/Petrolatum, White Ophth Oint 3.5 Gm OU 1 applic Q4HR PRN Administration Dry Eye(s) Nitroglycerin 0.4 mg 09/04/20 06:00 09/04/20 05:46 Nitroglycerin 0.4 Mg Patch 24hr TD 0.4 mg QDAY@0600 ANIYAH Administration Ondansetron HCl 4 mg 08/30/20 04:41 Ondansetron 4 Mg/2 Ml Inj IV Q8H PRN Nausea And Vomiting Senna/Docusate Sodium 1 tab 08/30/20 22:00 09/04/20 09:08 Sennosides/Docusate Sodium 8.6/50 Mg Tab FEEDTUBE Not Given BID ANIYAH Simple Syrup 15 ml 08/30/20 14:27 Simple Syrup 15 Ml FEEDTUBE PRN PRN Hypoglycemia Simple Syrup 30 ml 08/30/20 14:27 Simple Syrup 15 Ml FEEDTUBE PRN PRN Hypoglycemia Sodium Bicarbonate 325 mg 08/30/20 14:27 Sodium Bicarbonate 325 Mg Tab FEEDTUBE PRN PRN For Clogged Feeding Tube Sodium Chloride 10 ml 08/30/20 10:00 09/04/20 09:08 Sodium Chloride 0.9% 10 Ml Flush Syringe IV 10 ml BID ANIYAH Administration Sodium Chloride 10 ml 08/30/20 04:41 Sodium Chloride 0.9% 10 Ml Flush Syringe IV PRN PRN LINE FLUSH
--- NOTE | 2020-09-04 11:01 | Progress Note ---
<PROMISEBONNIEVivi - Last Filed: 09/04/20 10:58> Assessment and Plan Assessment and plan: This is 65-year-old female with DM, HTN, HLD, ESRD on HD MWF, multiple myeloma s/p chemotherapy and stem cell transplant and current tobacco abuse who was admitted s/p cardiac arrest with anoxic encephalopathy, hypertensive emergency, multifocal pneumonia and has a COVID-19 PUI COVID-19, ruled out S/p cardiac arrest Acute hypoxic respiratory failure Diffuse anoxic brain injury as evidenced by MRI Pericardial effusion Severe cardiomegaly Anoxic encephalopathy Hyperkalemia Hyperglycemia Leukocytosis Transaminitis Hypertension Hyperlipidemia ESRD on HD Multiple myeloma Current tobacco abuse -CCM, nephrology, cardiology, infectious disease, neurology consulted, appreciate recommendations -08/29 CXR shows moderate enlargement of cardiac silhouette, diffuse bilateral mixed chest x-ray and airspace disease -08/30 CT C-spine shows no CT evidence of acute bony abnormality the cervical spine, biapical airspace disease -08/30 CT head/brain shows no CT evidence of acute intracranial hemorrhage, mild generalized parenchymal atrophy, no evidence of midline shift or mass-effect, moderate size right frontal scalp hematoma -08/30 CTA chest shows no pulmonary embolism, mildly enlarged heart, moderate sized pericardial effusion, diffuse bilateral mixed interstitial and airspace disease with associated atelectasis. -08/30 CT abdomen/pelvis with contrast shows mild fluid-filled distended stomach, dense atherosclerotic calcification of the abdominal aorta, multiple loops of moderately prominent fecalized small bowel, moderate amount of retained stool throughout the colon which may represent possible sequela impaction and constip ation, multiple colonic diverticula, several calcified uterine fibroids, bibasilar mixed interstitial and airspace disease -08/30 bilateral lower extremity Doppler ultrasound shows no evidence of DVT in either lower extremity -08/30 CXR shows moderate bilateral lateral pulmonary opacities improvement -08/30 echocardiogram shows a small to moderate sized circumferential pericardial effusion, no tamponade, left ventricle systolic function normal, LVEF 55 to 60%, mild concentric LVH, trace MR, trace TR, no pulmonary hypertension -09/01 MRI brain showed diffuse restricted diffusion in the cerebral cortex consistent with global anoxic brain injury -08/31 EEG pending -s/p IV metoprolol and IV nitroglycerin drip -BP monitoring per protocol -PRN hydralazine, PO antihypertensives (Amlodipine, metoprolol, nitroglycerin transdermal) -Empiric antibiotics per infectious disease -08/30 tracheal aspirate pending -S/P calcium gluconate, insulin, D50 for hyperkalemia in the emergency department and repeated on 08/31 -Bowel regimen -Tube feedings, SSI, Accu-Cheks every 6, hypoglycemic protocol, long-acting i nsulin (titrate as needed) -Trend CBC,BMP DVT/GI prophylaxis: SCDs to bilateral lower extremities while in bed, PPI, heparin subcu Disposition: ICU, hospice referral made Lines: L SVC permcath, AVF The high probability of a clinically significant, sudden or life threatening deterioration of the [multi] system(s) required my full and direct attention, intervention and personal management. The aggregate critical care time was [35] minutes. This time is in addition to time spent performing reported procedures but includes the following: [x] Data Review and interpretation [x] Patient assessment and monitoring of vital signs [x] Documentation [x] Medication orders and management History Interval history: This is 65-year-old female with diabetes mellitus, hypertension, hyperlipidemia, ESRD on HD MWF via left chest permacath, multiple myeloma s/p chemotherapy and stem cell transplant with right chest port, immature right upper extremity aVF a nd current tobacco abuse who presented to the emergency department on 08/30 s/p cardiac arrest after being found laying in driveway, unresponsive and in asystole by EMS after being called for shortness of breath. Patient was intubated by EMS and received 3 mg epinephrine, calcium and serum bicarbonate and ROSC was eventually achieved after 10 minutes of resuscitation. Recommend emergency department revealed hyperkalemia, CXR showed moderate enlargement of cardiac silhouette, diffuse bilateral mixed interstitial and airspace disease with considerations to pulmonary edema or multifocal infectious process. Patient was admitted to the hospitalist service s/p cardiac arrest with anoxic encephalopathy, ESRD on HD, hypertensive emergency, multifocal pneumonia and a and has a COVID-19 PUI. CCM, nephrology, neurology infectious disease and cardiology were consulted. 08/30: This morning neurology was consulted, patient noted to have leukocytosis, hyperkalemia, metabolic acidosis and hyperglycemia. Patient had hyperphosphatemia, hypomagnesemia also. Patient had hemodialysis today per neph rology. COVID-19 PCR negative. Patient was in ED holding and admitted to the ICU later during the day. Patient is sedated on fentanyl and propofol. At the time my examination she was assist-control, rate of 28, tidal and 450, 60 PEEP and FiO2 of 60%. 08/31: Patient received hemodialysis however she is hyperkalemia again which was treated with dextrose, insulin and Kionex. Patient received hemodialysis again today per nephrology. Patient continues with with meropenem until blood cultures per infectious disease. MRI brain and EEG pending, lactulose discontinued (which was started due to large stool burden). We will follow up on cultures and BMP. Patient also noted to be hyperglycemic and was started on long acting insulin. Family updated at bedside by nurse ela and Dr. Garces. 09/01: Patient was noted to be hypertensive yesterday evening and today so cardiology will start the patient on a nitroglycerin drip and IV metoprolol. CCM reduced rate. Patient received hemodialysis today and scheduled for MRI brain. Patient noted to be hyperkalemic and follow-up BMP shows a potassium of 4. Patient's MRI brain showed diffuse anoxic brain injury and Dr. Garces updated the family at bedside. 09/02: Patient had an MRI brain yesterday which showed global anoxic brain inju ry. At the time of my examination patient was on PCV CPAP with tidal volume 450, FiO2 of 30. Patient is hyperglycemic and insulin dosage increased. Family decision has not been made, Dr. Silva and / Dez updated family. Neurology has signed off 09/03: Patient continues to be hypoglycemic and long-acting insulin dosage increased. She is receiving hemodialysis today. Patient has a referral to inpatient hospice. No acute events reported overnight. CM speaking to family re hospice. Cardio changed BP medications to PO. CCM to discuss goals of care and rT to rest daily on AC at night/continue CPAP trials during the day. 09/04: Patient was noted to have possible seizure activity and was given 2 mg of Ativan by CCM. Patient was later hypotensive tensive and received a 250 mL normal saline bolus which was communicated to nephrology. Per nephrology will like to avoid excessive fluid boluses to prevent issues with fluid overload over the weekend. At the time of my exam patient was on assist control tidal line 450, rate of 12, PEEP of 6 and 25% FiO2. Patient noted to be hyper glycemic and long-acting insulin was changed. Hospitalist Physical - Constitutional Vitals: Temp Pulse Resp BP Pulse Ox 99.2 F 90 28 H 81/41 97 09/04/20 08:00 09/04/20 10:15 09/04/20 10:15 09/04/20 10:15 09/04/20 10:15 General appearance: Present: no acute distress, other (Unresponsive, on the vent) - EENT Eyes: Present: conjunctival injection (Scleral edema). Absent: PERRL, EOM intact ENT: dentition normal - Neck Neck: Absent: masses or JVD, cervical LAD - Respiratory Respiratory effort: normal Respiratory: bilateral: CTA - Cardiovascular Rhythm: regular Heart Sounds: Present: S1 & S2. Absent: systolic murmur, diastolic murmur - Extremities Extremities: no ischemia, pulses intact, pulses symmetrical, No edema, normal temperature, normal color Peripheral Pulses: within normal limits - Abdominal General gastrointestinal: soft, non-tender, non-distended, normal bowel sounds - Integumentary Integumentary: Present: warm, dry - Psychiatric Psychiatric: other (Not interactive) - Neurologic Neurologic: no moves all extremities, other (Pupils nonreactive to light, minimal gag, no response to painful stimuli.) HEART Score - HEART Score Troponin: Troponin T 0.085 ng/mL (0.00-0.029) H 08/30/20 00:15 Results - Labs CBC & Chem 7: 09/03/20 04:12 09/03/20 04:12 Labs: Laboratory Last Values WBC 8.7 K/mm3 (4.5-11.0) 09/03/20 04:12 RBC 2.35 M/mm3 (3.65-5.03) L 09/03/20 04:12 Hgb 8.3 gm/dl (10.1-14.3) L 09/03/20 04:12 Hct 25.1 % (30.3-42.9) L 09/03/20 04:12 MCV 107 fl (79-97) H 09/03/20 04:12 MCH 35 pg (28-32) H 09/03/20 04:12 MCHC 33 % (30-34) 09/03/20 04:12 RDW 18.5 % (13.2-15.2) H 09/03/20 04:12 Plt Count 87 K/mm3 (140-440) L 09/03/20 04:12 Lymph % (Auto) 6.9 % (13.4-35.0) L 08/31/20 05:45 Greenlee % (Auto) 4.5 % (0.0-7.3) 08/31/20 05:45 Eos % (Auto) 0.0 % (0.0-4.3) 08/31/20 05:45 Baso % (Auto) 0.8 % (0.0-1.8) 08/31/20 05:45 Lymph # (Auto) 0.9 K/mm3 (1.2-5.4) L 08/31/20 05:45 Greenlee # (Auto) 0.6 K/mm3 (0.0-0.8) 08/31/20 05:45 Eos # (Auto) 0.0 K/mm3 (0.0-0.4) 08/31/20 05:45 Baso # (Auto) 0.1 K/mm3 (0.0-0.1) 08/31/20 05:45 Add Manual Diff Complete 08/30/20 00:15 Total Counted 100 08/30/20 00:15 Seg Neutrophils % 87.8 % (40.0-70.0) H 08/31/20 05:45 Seg Neuts % (Manual) 57.0 % (40.0-70.0) 08/30/20 00:15 Band Neutrophils % 1.0 % 08/30/20 00:15 Lymphocytes % (Manual) 34.0 % (13.4-35.0) 08/30/20 00:15 Monocytes % (Manual) 5.0 % (0.0-7.3) 08/30/20 00:15 Eosinophils % (Manual) 3.0 % (0.0-4.3) 08/30/20 00:15 Nucleated RBC % 1.0 % (0.0-0.9) H 08/30/20 00:15 Seg Neutrophils # 11.5 K/mm3 (1.8-7.7) H 08/31/20 05:45 Seg Neutrophils # Man 5.6 K/mm3 (1.8-7.7) 08/30/20 00:15 Band Neutrophils # 0.1 K/mm3 08/30/20 00:15 Lymphocytes # (Manual) 3.3 K/mm3 (1.2-5.4) 08/30/20 00:15 Abs React Lymphs (Man) 0.0 K/mm3 08/30/20 00:15 Monocytes # (Manual) 0.5 K/mm3 (0.0-0.8) 08/30/20 00:15 Eosinophils # (Manual) 0.3 K/mm3 (0.0-0.4) 08/30/20 00:15 Basophils # (Manual) 0.0 K/mm3 (0.0-0.1) 08/30/20 00:15 Metamyelocytes # 0.0 K/mm3 08/30/20 00:15 Myelocytes # 0.0 K/mm3 08/30/20 00:15 Promyelocytes # 0.0 K/mm3 08/30/20 00:15 Blast Cells # 0.0 K/mm3 08/30/20 00:15 WBC Morphology Not Reportable 08/30/20 00:15 Hypersegmented Neuts Not Reportable 08/30/20 00:15 Hyposegmented Neuts Not Reportable 08/30/20 00:15 Hypogranular Neuts Not Reportable 08/30/20 00:15 Smudge Cells Not Reportable 08/30/20 00:15 Toxic Granulation Not Reportable 08/30/20 00:15 Toxic Vacuolation Not Reportable 08/30/20 00:15 Dohle Bodies Not Reportable 08/30/20 00:15 Pelger-Huet Anomaly Not Reportable 08/30/20 00:15 Lolita Rods Not Reportable 08/30/20 00:15 Platelet Estimate Consistent w auto 08/30/20 00:15 Clumped Platelets Not Reportable 08/30/20 00:15 Plt Clumps, EDTA Not Reportable 08/30/20 00:15 Large Platelets Not Reportable 08/30/20 00:15 Giant Platelets Not Reportable 08/30/20 00:15 Platelet Satelliting Not Reportable 08/30/20 00:15 Plt Morphology Comment Not Reportable 08/30/20 00:15 RBC Morphology Not Reportable 08/30/20 00:15 Dimorphic RBCs Not Reportable 08/30/20 00:15 Polychromasia Not Reportable 08/30/20 00:15 Hypochromasia Not Reportable 08/30/20 00:15 Poikilocytosis Not Reportable 08/30/20 00:15 Anisocytosis 1+ 08/30/20 00:15 Microcytosis Not Reportable 08/30/20 00:15 Macrocytosis Not Reportable 08/30/20 00:15 Spherocytes Not Reportable 08/30/20 00:15 Pappenheimer Bodies Not Reportable 08/30/20 00:15 Sickle Cells Not Reportable 08/30/20 00:15 Target Cells Not Reportable 08/30/20 00:15 Tear Drop Cells Not Reportable 08/30/20 00:15 Ovalocytes Not Reportable 08/30/20 00:15 Helmet Cells Not Reportable 08/30/20 00:15 Anton-Riggins Bodies Not Reportable 08/30/20 00:15 [place] Rings Not Reportable 08/30/20 00:15 Jigar Cells Not Reportable 08/30/20 00:15 Bite Cells Not Reportable 08/30/20 00:15 Crenated Cell Not Reportable 08/30/20 00:15 Elliptocytes Not Reportable 08/30/20 00:15 Acanthocytes (Spur) Not Reportable 08/30/20 00:15 Rouleaux Not Reportable 08/30/20 00:15 Hemoglobin C Crystals Not Reportable 08/30/20 00:15 Schistocytes Not Reportable 08/30/20 00:15 Malaria parasites Not Reportable 08/30/20 00:15 Maurice Bodies Not Reportable 08/30/20 00:15 Hem Pathologist Commnt No 08/30/20 00:15 PT 12.8 Sec. (12.2-14.9) 08/31/20 05:45 INR 0.90 (0.87-1.13) 08/31/20 05:45 D-Dimer > 02722 ng/mlDDU (0-234) H 08/30/20 03:10 ABG pH 7.506 pH Units (7.350-7.450) H 09/02/20 03:40 POC ABG pCO2 35.9 mmHg (32.0-48.0) 09/01/20 03:13 ABG pCO2 38.0 mm Hg 09/02/20 03:40 POC ABG pO2 89.7 mmHg (83-108) 09/01/20 03:13 ABG pO2 83.1 mm Hg (80.0-90.0) 09/02/20 03:40 POC ABG HCO3 28.6 09/01/20 03:13 ABG HCO3 29.4 mmol/L (20.0-26.0) H 09/02/20 03:40 ABG O2 Saturation 97.2 % (95.0-99.0) 09/02/20 03:40 ABG O2 Content 11.2 (0.0-44) 09/02/20 03:40 POC ABG Base Excess 5.5 09/01/20 03:13 ABG Base Excess 5.9 mmol/L (-2.0-3.0) H 09/02/20 03:40 ABG Hemoglobin 8.3 gm/dl (12.0-16.0) L 09/02/20 03:40 ABG Oxyhemoglobin 95.9 (94-98) 09/01/20 03:13 ABG Carboxyhemoglobin 1.9 % (0.0-5.0) 09/02/20 03:40 ABG Methemoglobin 0.5 % (0.0-1.5) 09/02/20 03:40 ABG Sodium 134.7 mmol/L (136.0-145.0) L 09/01/20 03:13 ABG Potassium 3.7 mmol/L (3.40-4.50) 09/01/20 03:13 ABG Chloride 94.0 mmol/L (98-107) L 09/01/20 03:13 ABG Glucose 441 mg/dL (65-95) H 09/01/20 03:13 Oxyhemoglobin 94.8 % (95.0-99.0) L 09/02/20 03:40 Carboxyhemoglobin 1.2 (0.5-1.5) 09/01/20 03:13 FiO2 30 % 09/02/20 03:40 FiO2 % 30.0 09/01/20 03:13 Sodium 136 mmol/L (137-145) L 09/03/20 04:12 Potassium 4.1 mmol/L (3.6-5.0) 09/03/20 04:12 Chloride 90.3 mmol/L (98-107) L 09/03/20 04:12 Carbon Dioxide 29 mmol/L (22-30) 09/03/20 04:12 Anion Gap 21 mmol/L 09/03/20 04:12 BUN 79 mg/dL (7-17) H 09/03/20 04:12 Creatinine 8.1 mg/dL (0.6-1.2) H 09/03/20 04:12 Estimated GFR 6 ml/min 09/03/20 04:12 BUN/Creatinine Ratio 10 % 09/03/20 04:12 Glucose 223 mg/dL (65-100) H 09/03/20 04:12 POC Glucose 283 mg/dL (70-105) H 09/04/20 05:28 Calcium 7.1 mg/dL (8.4-10.2) L 09/03/20 04:12 Phosphorus 11.50 mg/dL (2.5-4.5) H 08/30/20 00:15 Magnesium 3.80 mg/dL (1.7-2.3) H 08/30/20 00:15 Ferritin 830.0 ng/mL (10.0-200.0) H 08/30/20 03:10 Total Bilirubin 0.40 mg/dL (0.1-1.2) 08/30/20 15:03 AST 68 units/L (5-40) H 08/30/20 15:03 ALT 41 units/L (7-56) 08/30/20 15:03 Alkaline Phosphatase 364 units/L (35-129) H 08/30/20 15:03 Lactate Dehydrogenase 400 units/L (91-180) H 08/30/20 03:10 Troponin T 0.085 ng/mL (0.00-0.029) H 08/30/20 00:15 C-Reactive Protein 0.20 mg/dL (0.00-1.30) 08/30/20 03:10 Total Protein 6.4 g/dL (6.3-8.2) 08/30/20 15:03 Albumin 3.7 g/dL (3.9-5) L 08/30/20 15:03 Albumin/Globulin Ratio 1.4 % 08/30/20 15:03 Triglycerides 61 mg/dL (2-149) 08/30/20 00:15 Cholesterol 150 mg/dL (50-199) 08/30/20 00:15 LDL Cholesterol Direct 71 mg/dL (50-130) 08/30/20 00:15 HDL Cholesterol 66 mg/dL (40-59) H 08/30/20 00:15 Cholesterol/HDL Ratio 2.27 % 08/30/20 00:15 Procalcitonin 4.16 ng/mL (<0.15) 08/30/20 03:10 Arterial Blood Glucose 441 mg/dL (65-95) H 09/01/20 03:13 Arterial Blood Ionized Calcium 3.8 mg/dL (4.6-5.3) L 09/01/20 03:13 Coronavirus (PCR) Negative (Negative) 08/30/20 Unknown Hepatitis A IgM Ab Non-reactive (NonReactive) 08/30/20 07:35 Hep Bs Antigen Non-reactive (Negative) 08/30/20 07:35 Hep B Core IgM Ab Non-reactive (NonReactive) 08/30/20 07:35 Hepatitis C Antibody Non-reactive (NonReactive) 08/30/20 07:35 Microbiology: Microbiology 08/30/20 18:15 Peripheral/Venous Blood Culture - Preliminary NO GROWTH AFTER 4 DAYS 08/30/20 18:15 Peripheral/Venous Blood Culture - Preliminary NO GROWTH AFTER 4 DAYS Johns/IV: Voiding Method Incontinent Active Medications - Current Medications Current Medications: Generic Name Dose Route Start Last Admin Trade Name Freq PRN Reason Stop Dose Admin Acetaminophen 650 mg 09/01/20 00:27 09/04/20 04:34 Acetaminophen 325 Mg/10.15 Ml Oral Liqd Unit Dose FEEDTUBE 650 mg Q6H PRN Administration Non Cardiac Pain or Temp>100.5 Amlodipine Besylate 10 mg 09/03/20 11:00 09/04/20 09:07 Amlodipine 10 Mg Tab PO 10 mg QDAY ANIYAH Administration Lipase/Protease/Amylase 1 each 08/30/20 14:27 Lipase 10,500/Protease 25,000/Amylase 43,750 (Units) Dr Duran FEEDTUBE PRN PRN For Clogged Feeding Tube Dextrose 50 ml 08/30/20 19:48 Dextrose 50% In Water (25gm) 50 Ml Syringe IV Q30MIN PRN Hypoglycemia Protocol Famotidine 20 mg 09/02/20 10:00 09/04/20 09:08 Famotidine 20 Mg Tab PO 20 mg DAILY ANIYAH Administration Fentanyl 50 mcg 08/30/20 14:05 Fentanyl 100 Mcg/2 Ml Inj IV Q10MIN PRN ANALGESIA Heparin Sodium (Porcine) 5,000 unit 08/30/20 06:00 09/04/20 05:46 Heparin 5,000 Unit/1 Ml Vial SUB-Q 5,000 unit Q8HR ANIYAH Administration Hydralazine HCl 10 mg 08/31/20 18:14 09/04/20 04:34 Hydralazine 20 Mg/1 Ml Inj IV 10 mg Q4HR PRN Administration Hypertension Hydrophilic Ointment 1 applic 08/30/20 14:05 Lip Therapy Vaseline TP Q2HR PRN Dry Lips Sodium Chloride 100 mls @ 999 mls/hr 08/30/20 09:00 Nacl 0.9% IV ARMIDA PRN Hypotension Propofol 1,000 mg in 100 mls @ 2.381 mls/hr 08/30/20 13:00 08/31/20 16:39 Diprivan 10 Mg/Ml IV 0 mcg/kg/min TITR ANIYAH 0 mls/hr Titration Protocol 5 MCG/KG/MIN Meropenem 500 mg in 50 mls @ 50 mls/hr 08/30/20 14:00 09/03/20 13:37 Merrem/Ns 500 Mg/50 Ml IV 09/06/20 14:59 50 mls/hr Q24H ANIYAH Administration Fentanyl Citrate 2,000 mcg in 100 mls @ 3.969 mls/hr 08/30/20 15:00 09/01/20 15:41 Fentanyl Drip Premix IV 0 mcg/kg/hr TITR ANIYAH 0 mls/hr Titration Protocol 1 MCG/KG/HR Insulin Glargine 30 units 09/03/20 10:00 09/04/20 09:07 Insulin Glargine 100 Units/Ml SUB-Q 30 units DAILY ANIYAH Administration Insulin Human Lispro 5 unit 09/04/20 08:00 09/04/20 08:59 Insulin Lispro 100 Unit/Ml SUB-Q 5 unit TID ANIYAH Administration Insulin Human Regular 0 units 09/01/20 10:00 09/04/20 10:13 Insulin Regular, Human 100 Units/1 Ml SUB-Q 3 units Q4HR ANIYAH Administration Protocol Magnesium Hydroxide 30 ml 08/30/20 04:41 Magnesium Hydroxide (Mom) Oral Liqd Udc PO Q4H PRN Constipation Metoprolol Tartrate 50 mg 09/03/20 11:00 09/04/20 09:07 Metoprolol Tartrate 50 Mg Tab PO 50 mg BID ANIYAH Administration Multi-Ingred Cream/Lotion/Oil/Oint 1 applic 08/30/20 14:05 08/31/20 01:17 Mineral Oil/Petrolatum, White Ophth Oint 3.5 Gm OU 1 applic Q4HR PRN Administration Dry Eye(s) Nitroglycerin 0.4 mg 09/04/20 06:00 09/04/20 05:46 Nitroglycerin 0.4 Mg Patch 24hr TD 0.4 mg QDAY@0600 ANIYAH Administration Ondansetron HCl 4 mg 08/30/20 04:41 Ondansetron 4 Mg/2 Ml Inj IV Q8H PRN Nausea And Vomiting Senna/Docusate Sodium 1 tab 08/30/20 22:00 09/04/20 09:08 Sennosides/Docusate Sodium 8.6/50 Mg Tab FEEDTUBE Not Given BID ANIYAH Simple Syrup 15 ml 08/30/20 14:27 Simple Syrup 15 Ml FEEDTUBE PRN PRN Hypoglycemia Simple Syrup 30 ml 08/30/20 14:27 Simple Syrup 15 Ml FEEDTUBE PRN PRN Hypoglycemia Sodium Bicarbonate 325 mg 08/30/20 14:27 Sodium Bicarbonate 325 Mg Tab FEEDTUBE PRN PRN For Clogged Feeding Tube Sodium Chloride 10 ml 08/30/20 10:00 09/04/20 09:08 Sodium Chloride 0.9% 10 Ml Flush Syringe IV 10 ml BID ANIYAH Administration Sodium Chloride 10 ml 08/30/20 04:41 Sodium Chloride 0.9% 10 Ml Flush Syringe IV PRN PRN LINE FLUSH Nutrition/Malnutrition Assess - Dietary Evaluation Nutrition/Malnutrition Findings: Nutrition Notes Start: 08/30/20 07:40 Freq: Status: Active Protocol: Document 09/03/20 10:52 CW (Rec: 09/03/20 10:56 CW [id number]) Nutrition Notes Initial or Follow up Reassessment Current Diagnosis CKD (stage V CKD),Diabetes, Hypertension Other Pertinent Diagnosis pneu, cardiac arrest, on HD, COVID PUI Current Diet Nepro 1.8 at 35 ml/hr Labs/Tests Na 136 BUN 79 Cr 8.1 BG 223 Pertinent Medications Humulin Nitroglycerin in dextrose at 13.5 ml/hr Merrem Height 5 ft 3 in Weight 62.9 kg [place] Body Weight (kg) 52.27 BMI 24.5 Weight Status Appropriate Subjective/Other Information FU for TF tolerance. Pt received HD today. TF running at goal. NOK considering hospice placement. No reports of TF intolerance. Loose stool likely related to ABTx. RD conducted reqwt d/t wt anomaly . Percent of energy/protein needs met: 100%/85% Burn Absent Trauma Absent GI Symptoms Diarrhea Current % PO Negligible Minimum of two criteria No physical signs of malnutrition #1 Nutrition Diagnosis Inadequate oral intake Diagnosis Progress(for reassessment Continues documentation) Is patient on ventilator? Yes Is Patient Ambulatory and/or Out of Bed No REE-([facility]-confined to bed) 1371.336 Calculation Used for Recommendations [facility] Additional Notes Protein: (1.2-2g/kg) 80-133g Fluid: 1 - 1.5 L Nutrition Intervention Change Diet Order: Continue Nutrition Support: Nepro 1.8 at 35 ml/hr Flush 150 ml q4h or per MD Kcal 1,512 Protein (gm) 68 Carbohydrates (gm) 135 Fat (gm) 81 Fluid (mL) 611 Goal #1 Meet at least 75% of protein and energy needs via TF Anticipated Discharge Needs: Unable to determine at this time Follow-Up By: 09/06/20 Additional Comments F/U for TF tolerance, wt <CAIT GARCES - Last Filed: 09/04/20 14:12> Assessment and Plan Assessment and plan: Agree with assessment and plan as outlined by nurse practitioner above. I have reviewed all the charts of specialist and labs. There was talk this morning of patient having possibly a seizure. Patient was given 2 mg of Ativan, patient became hypotensive and 250 normal saline bolus was given. Avoid fluid overloaded since the patient is a dialysis patient. Insulin has been changed accordingly for better control of blood glucose. Patient to go to hospice most likely next week. Hospitalist Physical - Constitutional Vitals: Temp Pulse Resp BP Pulse Ox 99.9 F H 90 24 103/42 100 09/04/20 12:43 09/04/20 12:00 09/04/20 12:00 09/04/20 12:00 09/04/20 12:00 HEART Score - HEART Score Troponin: Troponin T 0.085 ng/mL (0.00-0.029) H 08/30/20 00:15 Results - Labs CBC & Chem 7: 09/03/20 04:12 09/03/20 04:12 Labs: Laboratory Last Values WBC 8.7 K/mm3 (4.5-11.0) 09/03/20 04:12 RBC 2.35 M/mm3 (3.65-5.03) L 09/03/20 04:12 Hgb 8.3 gm/dl (10.1-14.3) L 09/03/20 04:12 Hct 25.1 % (30.3-42.9) L 09/03/20 04:12 MCV 107 fl (79-97) H 09/03/20 04:12 MCH 35 pg (28-32) H 09/03/20 04:12 MCHC 33 % (30-34) 09/03/20 04:12 RDW 18.5 % (13.2-15.2) H 09/03/20 04:12 Plt Count 87 K/mm3 (140-440) L 09/03/20 04:12 Lymph % (Auto) 6.9 % (13.4-35.0) L 08/31/20 05:45 [place]lee % (Auto) 4.5 % (0.0-7.3) 08/31/20 05:45 Eos % (Auto) 0.0 % (0.0-4.3) 08/31/20 05:45 Baso % (Auto) 0.8 % (0.0-1.8) 08/31/20 05:45 Lymph # (Auto) 0.9 K/mm3 (1.2-5.4) L 08/31/20 05:45 [place]lee # (Auto) 0.6 K/mm3 (0.0-0.8) 08/31/20 05:45 Eos # (Auto) 0.0 K/mm3 (0.0-0.4) 08/31/20 05:45 Baso # (Auto) 0.1 K/mm3 (0.0-0.1) 08/31/20 05:45 Add Manual Diff Complete 08/30/20 00:15 Total Counted 100 08/30/20 00:15 Seg Neutrophils % 87.8 % (40.0-70.0) H 08/31/20 05:45 Seg Neuts % (Manual) 57.0 % (40.0-70.0) 08/30/20 00:15 Band Neutrophils % 1.0 % 08/30/20 00:15 Lymphocytes % (Manual) 34.0 % (13.4-35.0) 08/30/20 00:15 Monocytes % (Manual) 5.0 % (0.0-7.3) 08/30/20 00:15 Eosinophils % (Manual) 3.0 % (0.0-4.3) 08/30/20 00:15 Nucleated RBC % 1.0 % (0.0-0.9) H 08/30/20 00:15 Seg Neutrophils # 11.5 K/mm3 (1.8-7.7) H 08/31/20 05:45 Seg Neutrophils # Man 5.6 K/mm3 (1.8-7.7) 08/30/20 00:15 Band Neutrophils # 0.1 K/mm3 08/30/20 00:15 Lymphocytes # (Manual) 3.3 K/mm3 (1.2-5.4) 08/30/20 00:15 Abs React Lymphs (Man) 0.0 K/mm3 08/30/20 00:15 Monocytes # (Manual) 0.5 K/mm3 (0.0-0.8) 08/30/20 00:15 Eosinophils # (Manual) 0.3 K/mm3 (0.0-0.4) 08/30/20 00:15 Basophils # (Manual) 0.0 K/mm3 (0.0-0.1) 08/30/20 00:15 Metamyelocytes # 0.0 K/mm3 08/30/20 00:15 Myelocytes # 0.0 K/mm3 08/30/20 00:15 Promyelocytes # 0.0 K/mm3 08/30/20 00:15 Blast Cells # 0.0 K/mm3 08/30/20 00:15 WBC Morphology Not Reportable 08/30/20 00:15 Hypersegmented Neuts Not Reportable 08/30/20 00:15 Hyposegmented Neuts Not Reportable 08/30/20 00:15 Hypogranular Neuts Not Reportable 08/30/20 00:15 Smudge Cells Not Reportable 08/30/20 00:15 Toxic Granulation Not Reportable 08/30/20 00:15 Toxic Vacuolation Not Reportable 08/30/20 00:15 Dohle Bodies Not Reportable 08/30/20 00:15 Pelger-Huet Anomaly Not Reportable 08/30/20 00:15 Lolita Rods Not Reportable 08/30/20 00:15 Platelet Estimate Consistent w auto 08/30/20 00:15 Clumped Platelets Not Reportable 08/30/20 00:15 Plt Clumps, EDTA Not Reportable 08/30/20 00:15 Large Platelets Not Reportable 08/30/20 00:15 Giant Platelets Not Reportable 08/30/20 00:15 Platelet Satelliting Not Reportable 08/30/20 00:15 Plt Morphology Comment Not Reportable 08/30/20 00:15 RBC Morphology Not Reportable 08/30/20 00:15 Dimorphic RBCs Not Reportable 08/30/20 00:15 Polychromasia Not Reportable 08/30/20 00:15 Hypochromasia Not Reportable 08/30/20 00:15 Poikilocytosis Not Reportable 08/30/20 00:15 Anisocytosis 1+ 08/30/20 00:15 Microcytosis Not Reportable 08/30/20 00:15 Macrocytosis Not Reportable 08/30/20 00:15 Spherocytes Not Reportable 08/30/20 00:15 Pappenheimer Bodies Not Reportable 08/30/20 00:15 Sickle Cells Not Reportable 08/30/20 00:15 Target Cells Not Reportable 08/30/20 00:15 Tear Drop Cells Not Reportable 08/30/20 00:15 Ovalocytes Not Reportable 08/30/20 00:15 Helmet Cells Not Reportable 08/30/20 00:15 Anton-Riggins Bodies Not Reportable 08/30/20 00:15 [place] Rings Not Reportable 08/30/20 00:15 [place] Cells Not Reportable 08/30/20 00:15 Bite Cells Not Reportable 08/30/20 00:15 Crenated Cell Not Reportable 08/30/20 00:15 Elliptocytes Not Reportable 08/30/20 00:15 Acanthocytes (Spur) Not Reportable 08/30/20 00:15 Rouleaux Not Reportable 08/30/20 00:15 Hemoglobin C Crystals Not Reportable 08/30/20 00:15 Schistocytes Not Reportable 08/30/20 00:15 Malaria parasites Not Reportable 08/30/20 00:15 Maurice Bodies Not Reportable 08/30/20 00:15 Hem Pathologist Commnt No 08/30/20 00:15 PT 12.8 Sec. (12.2-14.9) 08/31/20 05:45 INR 0.90 (0.87-1.13) 08/31/20 05:45 D-Dimer > 17198 ng/mlDDU (0-234) H 08/30/20 03:10 ABG pH 7.506 pH Units (7.350-7.450) H 09/02/20 03:40 POC ABG pCO2 35.9 mmHg (32.0-48.0) 09/01/20 03:13 ABG pCO2 38.0 mm Hg 09/02/20 03:40 POC ABG pO2 89.7 mmHg (83-108) 09/01/20 03:13 ABG pO2 83.1 mm Hg (80.0-90.0) 09/02/20 03:40 POC ABG HCO3 28.6 09/01/20 03:13 ABG HCO3 29.4 mmol/L (20.0-26.0) H 09/02/20 03:40 ABG O2 Saturation 97.2 % (95.0-99.0) 09/02/20 03:40 ABG O2 Content 11.2 (0.0-44) 09/02/20 03:40 POC ABG Base Excess 5.5 09/01/20 03:13 ABG Base Excess 5.9 mmol/L (-2.0-3.0) H 09/02/20 03:40 ABG Hemoglobin 8.3 gm/dl (12.0-16.0) L 09/02/20 03:40 ABG Oxyhemoglobin 95.9 (94-98) 09/01/20 03:13 ABG Carboxyhemoglobin 1.9 % (0.0-5.0) 09/02/20 03:40 ABG Methemoglobin 0.5 % (0.0-1.5) 09/02/20 03:40 ABG Sodium 134.7 mmol/L (136.0-145.0) L 09/01/20 03:13 ABG Potassium 3.7 mmol/L (3.40-4.50) 09/01/20 03:13 ABG Chloride 94.0 mmol/L (98-107) L 09/01/20 03:13 ABG Glucose 441 mg/dL (65-95) H 09/01/20 03:13 Oxyhemoglobin 94.8 % (95.0-99.0) L 09/02/20 03:40 Carboxyhemoglobin 1.2 (0.5-1.5) 09/01/20 03:13 FiO2 30 % 09/02/20 03:40 FiO2 % 30.0 09/01/20 03:13 Sodium 136 mmol/L (137-145) L 09/03/20 04:12 Potassium 4.1 mmol/L (3.6-5.0) 09/03/20 04:12 Chloride 90.3 mmol/L (98-107) L 09/03/20 04:12 Carbon Dioxide 29 mmol/L (22-30) 09/03/20 04:12 Anion Gap 21 mmol/L 09/03/20 04:12 BUN 79 mg/dL (7-17) H 09/03/20 04:12 Creatinine 8.1 mg/dL (0.6-1.2) H 09/03/20 04:12 Estimated GFR 6 ml/min 09/03/20 04:12 BUN/Creatinine Ratio 10 % 09/03/20 04:12 Glucose 223 mg/dL (65-100) H 09/03/20 04:12 POC Glucose 159 mg/dL (70-105) H 09/04/20 10:03 Calcium 7.1 mg/dL (8.4-10.2) L 09/03/20 04:12 Phosphorus 11.50 mg/dL (2.5-4.5) H 08/30/20 00:15 Magnesium 3.80 mg/dL (1.7-2.3) H 08/30/20 00:15 Ferritin 830.0 ng/mL (10.0-200.0) H 08/30/20 03:10 Total Bilirubin 0.40 mg/dL (0.1-1.2) 08/30/20 15:03 AST 68 units/L (5-40) H 08/30/20 15:03 ALT 41 units/L (7-56) 08/30/20 15:03 Alkaline Phosphatase 364 units/L (35-129) H 08/30/20 15:03 Lactate Dehydrogenase 400 units/L (91-180) H 08/30/20 03:10 Troponin T 0.085 ng/mL (0.00-0.029) H 08/30/20 00:15 C-Reactive Protein 0.20 mg/dL (0.00-1.30) 08/30/20 03:10 Total Protein 6.4 g/dL (6.3-8.2) 08/30/20 15:03 Albumin 3.7 g/dL (3.9-5) L 08/30/20 15:03 Albumin/Globulin Ratio 1.4 % 08/30/20 15:03 Triglycerides 61 mg/dL (2-149) 08/30/20 00:15 Cholesterol 150 mg/dL (50-199) 08/30/20 00:15 LDL Cholesterol Direct 71 mg/dL (50-130) 08/30/20 00:15 HDL Cholesterol 66 mg/dL (40-59) H 08/30/20 00:15 Cholesterol/HDL Ratio 2.27 % 08/30/20 00:15 Procalcitonin 4.16 ng/mL (<0.15) 08/30/20 03:10 Arterial Blood Glucose 441 mg/dL (65-95) H 09/01/20 03:13 Arterial Blood Ionized Calcium 3.8 mg/dL (4.6-5.3) L 09/01/20 03:13 Coronavirus (PCR) Negative (Negative) 08/30/20 Unknown Hepatitis A IgM Ab Non-reactive (NonReactive) 08/30/20 07:35 Hep Bs Antigen Non-reactive (Negative) 08/30/20 07:35 Hep B Core IgM Ab Non-reactive (NonReactive) 08/30/20 07:35 Hepatitis C Antibody Non-reactive (NonReactive) 08/30/20 07:35 Microbiology: Microbiology 08/30/20 18:15 Peripheral/Venous Blood Culture - Preliminary NO GROWTH AFTER 4 DAYS 08/30/20 18:15 Peripheral/Venous Blood Culture - Preliminary NO GROWTH AFTER 4 DAYS Johns/IV: Voiding Method Incontinent Active Medications - Current Medications Current Medications: Generic Name Dose Route Start Last Admin Trade Name Freq PRN Reason Stop Dose Admin Acetaminophen 650 mg 09/01/20 00:27 09/04/20 04:34 Acetaminophen 325 Mg/10.15 Ml Oral Liqd Unit Dose FEEDTUBE 650 mg Q6H PRN Administration Non Cardiac Pain or Temp>100.5 Amlodipine Besylate 10 mg 09/03/20 11:00 09/04/20 09:07 Amlodipine 10 Mg Tab PO 10 mg QDAY ANIYAH Administration Lipase/Protease/Amylase 1 each 08/30/20 14:27 Lipase 10,500/Protease 25,000/Amylase 43,750 (Units) Dr Duran FEEDTUBE PRN PRN For Clogged Feeding Tube Dextrose 50 ml 08/30/20 19:48 Dextrose 50% In Water (25gm) 50 Ml Syringe IV Q30MIN PRN Hypoglycemia Protocol Famotidine 20 mg 09/02/20 10:00 09/04/20 09:08 Famotidine 20 Mg Tab PO 20 mg DAILY ANIYAH Administration Fentanyl 50 mcg 08/30/20 14:05 Fentanyl 100 Mcg/2 Ml Inj IV Q10MIN PRN ANALGESIA Heparin Sodium (Porcine) 5,000 unit 08/30/20 06:00 09/04/20 13:42 Heparin 5,000 Unit/1 Ml Vial SUB-Q 5,000 unit Q8HR ANIYAH Administration Hydralazine HCl 10 mg 08/31/20 18:14 09/04/20 04:34 Hydralazine 20 Mg/1 Ml Inj IV 10 mg Q4HR PRN Administration Hypertension Hydrophilic Ointment 1 applic 08/30/20 14:05 Lip Therapy Vaseline TP Q2HR PRN Dry Lips Sodium Chloride 100 mls @ 999 mls/hr 08/30/20 09:00 Nacl 0.9% IV ARMIDA PRN Hypotension Propofol 1,000 mg in 100 mls @ 2.381 mls/hr 08/30/20 13:00 08/31/20 16:39 Diprivan 10 Mg/Ml IV 0 mcg/kg/min TITR ANIYAH 0 mls/hr Titration Protocol 5 MCG/KG/MIN Meropenem 500 mg in 50 mls @ 50 mls/hr 08/30/20 14:00 09/04/20 13:42 Merrem/Ns 500 Mg/50 Ml IV 09/06/20 14:59 50 mls/hr Q24H ANIYAH Administration Fentanyl Citrate 2,000 mcg in 100 mls @ 3.969 mls/hr 08/30/20 15:00 09/01/20 15:41 Fentanyl Drip Premix IV 0 mcg/kg/hr TITR ANIYAH 0 mls/hr Titration Protocol 1 MCG/KG/HR Insulin Glargine 30 units 09/03/20 10:00 09/04/20 09:07 Insulin Glargine 100 Units/Ml SUB-Q 30 units DAILY [facility] Administration Insulin Human Lispro 5 unit 09/04/20 08:00 09/04/20 13:46 Insulin Lispro 100 Unit/Ml SUB-Q Not Given TID [facility] Insulin Human Regular 0 units 09/01/20 10:00 09/04/20 13:46 Insulin Regular, Human 100 Units/1 Ml SUB-Q Not Given Q4HR [facility] Protocol Magnesium Hydroxide 30 ml 08/30/20 04:41 Magnesium Hydroxide (Mom) Oral Liqd Udc PO Q4H PRN Constipation Metoprolol Tartrate 50 mg 09/03/20 11:00 09/04/20 09:07 Metoprolol Tartrate 50 Mg Tab PO 50 mg BID [facility] Administration Multi-Ingred Cream/Lotion/Oil/Oint 1 applic 08/30/20 14:05 08/31/20 01:17 Mineral Oil/Petrolatum, White Ophth Oint 3.5 Gm OU 1 applic Q4HR PRN Administration Dry Eye(s) Nitroglycerin 0.4 mg 09/04/20 06:00 09/04/20 05:46 Nitroglycerin 0.4 Mg Patch 24hr TD 0.4 mg QDAY@0600 [facility] Administration Ondansetron HCl 4 mg 08/30/20 04:41 Ondansetron 4 Mg/2 Ml Inj IV Q8H PRN Nausea And Vomiting Senna/Docusate Sodium 1 tab 08/30/20 22:00 09/04/20 09:08 Sennosides/Docusate Sodium 8.6/50 Mg Tab FEEDTUBE Not Given BID ANIYAH Simple Syrup 15 ml 08/30/20 14:27 Simple Syrup 15 Ml FEEDTUBE PRN PRN Hypoglycemia Simple Syrup 30 ml 08/30/20 14:27 Simple Syrup 15 Ml FEEDTUBE PRN PRN Hypoglycemia Sodium Bicarbonate 325 mg 08/30/20 14:27 Sodium Bicarbonate 325 Mg Tab FEEDTUBE PRN PRN For Clogged Feeding Tube Sodium Chloride 10 ml 08/30/20 10:00 09/04/20 09:08 Sodium Chloride 0.9% 10 Ml Flush Syringe IV 10 ml BID ANIYAH Administration Sodium Chloride 10 ml 08/30/20 04:41 Sodium Chloride 0.9% 10 Ml Flush Syringe IV PRN PRN LINE FLUSH Nutrition/Malnutrition Assess - Dietary Evaluation Nutrition/Malnutrition Findings: Nutrition Notes Start: 08/30/20 07:40 Freq: Status: Active Protocol: Document 09/03/20 10:52 CW (Rec: 09/03/20 10:56 CW [id number]) Nutrition Notes Initial or Follow up Reassessment Current Diagnosis CKD (stage V CKD),Diabetes, Hypertension Other Pertinent Diagnosis pneu, cardiac arrest, on HD, COVID PUI Current Diet Nepro 1.8 at 35 ml/hr Labs/Tests Na 136 BUN 79 Cr 8.1 BG 223 Pertinent Medications Humulin Nitroglycerin in dextrose at 13.5 ml/hr Merrem Height 5 ft 3 in Weight 62.9 kg [place] Body Weight (kg) 52.27 BMI 24.5 Weight Status Appropriate Subjective/Other Information FU for TF tolerance. Pt received HD today. TF running at goal. NOK considering hospice placement. No reports of TF intolerance. Loose stool likely related to ABTx. RD conducted reqwt d/t wt anomaly . Percent of energy/protein needs met: 100%/85% Burn Absent Trauma Absent GI Symptoms Diarrhea Current % PO Negligible Minimum of two criteria No physical signs of malnutrition #1 Nutrition Diagnosis Inadequate oral intake Diagnosis Progress(for reassessment Continues documentation) Is patient on ventilator? Yes Is Patient Ambulatory and/or Out of Bed No REE-([place]-[facility]. Jeor-confined to bed) 1371.336 Calculation Used for Recommendations [facility] Additional Notes Protein: (1.2-2g/kg) 80-133g Fluid: 1 - 1.5 L Nutrition Intervention Change Diet Order: Continue Nutrition Support: Nepro 1.8 at 35 ml/hr Flush 150 ml q4h or per MD Kcal 1,512 Protein (gm) 68 Carbohydrates (gm) 135 Fat (gm) 81 Fluid (mL) 611 Goal #1 Meet at least 75% of protein and energy needs via TF Anticipated Discharge Needs: Unable to determine at this time Follow-Up By: 09/06/20 Additional Comments F/U for TF tolerance, wt
[2020-09-04] MEDS: MEROPENEM/NS 500 MG/50 ML 500 MG/50 ML BAG IV SCH (13:42)
[2020-09-04] MEDS: levETIRAcetam 500 MG/5 ML ORAL LIQD PO SCH (21:33)
[2020-09-05] MEDS: INSULIN REGULAR, HUMAN 100 UNITS/1 ML SUB-Q SCH ×6 (02:18→21:42)
[2020-09-05] MEDS: NITROGLYCERIN 0.4 MG PATCH 24HR TD SCH (05:56)
[2020-09-05] MEDS: HEPARIN 5,000 UNIT/1 ML VIAL SUB-Q SCH ×3 (06:04→21:41)
--- NOTE | 2020-09-05 07:07 | Progress Note ---
Assessment and Plan - Patient Problems (1) Anoxic encephalopathy Current Visit: Yes Status: Acute Plan to address problem: In the setting of cardiopulmonary arrest. No changes in her neurological status, which remains poor at this time. Pending hospice evaluation. (2) Cardiac arrest Current Visit: Yes Status: Acute Plan to address problem: s/p cardiac arrest suffered at home, with unfortunately severe anoxic encephalopathy/brain injury suffered without improvement in neurologic status. She is off all pressors and sedation at this time. Cardiology input reviewed and appreciated. Overall prognosis remains poor. (3) End-stage renal disease on hemodialysis Current Visit: Yes Status: Chronic Plan to address problem: Patient on an inpatient MWF HD schedule. Tolerated HD well yesterday. no acute indications for HD today, and with tenuous blood pressures this am, would avoid at this time. Instructed staff to avoid excess fluid boluses so as to prevent issues with fluid overload over the weekend. Hemodynamics have improved this am (4) Hyperkalemia Current Visit: Yes Status: Acute Plan to address problem: Corrected with HD (5) Multifocal pneumonia Current Visit: Yes Status: Acute Plan to address problem: Please ensure that antibiotics are dosed appropriately for her decreased renal function. (6) Pulmonary edema Current Visit: Yes Status: Acute Plan to address problem: Being corrected with UF during dialysis. No acute indications for HD today. Will monitor closely. She remains intubated, without any acute changes in vent settings at this time. Subjective Date of service: 09/05/20 Principal diagnosis: Cardiac arrest; Ac. hypoxemic resp failure; PNA; ESRD; NSTEMI; Hyperkalemia Interval history: No acute changes, pressures improved this am. Objective - Vital Signs Vital signs: Vital Signs - 12hr 09/04/20 09/04/20 09/04/20 19:15 19:31 19:45 Temperature Pulse Rate 97 H 97 H 97 H Respiratory 27 H 29 H 29 H Rate Blood Pressure 141/50 136/42 133/44 O2 Sat by Pulse 96 96 95 Oximetry 09/04/20 09/04/20 09/04/20 19:46 20:00 20:15 Temperature 99.8 F H Pulse Rate 92 H 94 H Respiratory 24 22 Rate Blood Pressure 118/49 118/49 O2 Sat by Pulse 100 100 Oximetry 09/04/20 09/04/20 09/04/20 20:30 20:45 21:00 Temperature Pulse Rate 91 H 101 H 98 H Respiratory 25 H 25 H 23 Rate Blood Pressure 137/47 137/47 139/47 O2 Sat by Pulse 100 100 100 Oximetry 09/04/20 09/04/20 09/04/20 21:15 21:30 21:31 Temperature Pulse Rate 97 H 97 H 101 H Respiratory 27 H 20 Rate Blood Pressure 139/47 132/45 132/45 O2 Sat by Pulse 95 97 Oximetry 09/04/20 09/04/20 09/04/20 21:45 22:00 22:15 Temperature Pulse Rate 99 H 97 H 91 H Respiratory 25 H 19 20 Rate Blood Pressure 132/45 132/45 109/38 O2 Sat by Pulse 97 97 97 Oximetry 09/04/20 09/04/20 09/04/20 22:30 22:45 23:01 Temperature Pulse Rate 90 89 85 Respiratory 17 22 24 Rate Blood Pressure 100/36 109/38 114/42 O2 Sat by Pulse 98 100 100 Oximetry 09/04/20 09/04/20 09/04/20 23:15 23:30 23:39 Temperature Pulse Rate 91 H 90 84 Respiratory 25 H 25 H 22 Rate Blood Pressure 114/42 113/40 110/41 O2 Sat by Pulse 100 100 100 Oximetry 09/04/20 09/04/20 09/04/20 23:43 23:45 23:47 Temperature 99.9 F H Pulse Rate 85 90 Respiratory 25 H Rate Blood Pressure 110/41 110/41 O2 Sat by Pulse 100 100 Oximetry 09/05/20 09/05/20 09/05/20 00:00 00:15 00:30 Temperature Pulse Rate 85 90 90 Respiratory 18 22 19 Rate Blood Pressure 102/36 102/36 103/43 O2 Sat by Pulse 100 100 100 Oximetry 09/05/20 09/05/20 09/05/20 00:45 01:01 01:16 Temperature Pulse Rate 88 90 84 Respiratory 17 14 17 Rate Blood Pressure 108/37 108/37 O2 Sat by Pulse 100 100 100 Oximetry 09/05/20 09/05/20 09/05/20 01:30 01:45 02:00 Temperature Pulse Rate 83 87 88 Respiratory 18 20 22 Rate Blood Pressure 108/45 108/45 114/48 O2 Sat by Pulse 100 100 96 Oximetry 09/05/20 09/05/20 09/05/20 02:15 02:30 02:45 Temperature Pulse Rate 86 90 89 Respiratory 18 15 24 Rate Blood Pressure 114/48 120/49 120/49 O2 Sat by Pulse 97 100 98 Oximetry 09/05/20 09/05/20 09/05/20 03:00 03:15 03:20 Temperature 98.6 F Pulse Rate 92 H 85 Respiratory 15 24 Rate Blood Pressure 119/41 119/41 O2 Sat by Pulse 98 97 Oximetry 09/05/20 09/05/20 09/05/20 03:30 03:45 03:47 Temperature Pulse Rate 83 86 86 Respiratory 22 25 H Rate Blood Pressure 118/49 119/41 118/49 O2 Sat by Pulse 99 97 98 Oximetry 09/05/20 09/05/20 09/05/20 04:00 04:15 04:30 Temperature Pulse Rate 85 91 H 92 H Respiratory 16 20 21 Rate Blood Pressure 129/45 129/45 129/40 O2 Sat by Pulse 100 100 100 Oximetry 09/05/20 09/05/20 09/05/20 04:45 05:01 05:15 Temperature Pulse Rate 92 H 91 H 92 H Respiratory 20 17 14 Rate Blood Pressure 129/40 150/42 134/46 O2 Sat by Pulse 100 100 100 Oximetry 09/05/20 09/05/20 09/05/20 05:31 05:45 05:56 Temperature Pulse Rate 92 H 91 H 92 H Respiratory 21 16 Rate Blood Pressure 135/42 135/42 135/42 O2 Sat by Pulse 97 100 Oximetry 09/05/20 06:01 Temperature Pulse Rate 93 H Respiratory 26 H Rate Blood Pressure 145/43 O2 Sat by Pulse 95 Oximetry - General Appearance General appearance: chronically ill, intubated, frail EENT: ATNC Neck: no JVD Respiratory: Present: [place] Cardiology: regular Gastrointestinal: normal Integumentary: no rash Musculoskeletal: deferred - Lab 09/03/20 04:12 09/03/20 04:12 Most recent lab results ABG pH 7.506 pH Units (7.350-7.450) H 09/02/20 03:40 ABG pCO2 38.0 mm Hg 09/02/20 03:40 ABG pO2 83.1 mm Hg (80.0-90.0) 09/02/20 03:40 ABG HCO3 29.4 mmol/L (20.0-26.0) H 09/02/20 03:40 ABG O2 Saturation 97.2 % (95.0-99.0) 09/02/20 03:40 Calcium 7.1 mg/dL (8.4-10.2) L 09/03/20 04:12 Phosphorus 11.50 mg/dL (2.5-4.5) H 08/30/20 00:15 Magnesium 3.80 mg/dL (1.7-2.3) H 08/30/20 00:15 - Allied health notes Allied health notes reviewed: nursing Medications & Allergies - Medications Allergies/Adverse Reactions: Allergies No Known Allergies Allergy (Verified 08/30/20 22:43) Home Medications: Home Medications Medication Instructions Recorded Confirmed Last Taken Type Acyclovir [Zovirax Tab] 400 mg PO BID 08/30/20 08/30/20 Unknown History Amlodipine Besylate 10 mg PO DAILY 08/30/20 08/30/20 Unknown History Furosemide [Lasix] 40 mg PO DAILY 08/30/20 08/30/20 Unknown History Gabapentin [Neurontin] 600 mg PO BID 08/30/20 08/30/20 Unknown History Imdur ER 30 mg PO DAILY 08/30/20 08/30/20 Unknown History Losartan Potassium 50 mg PO BID 08/30/20 08/30/20 Unknown History Losartan/Hydrochlorothiazide 1 each PO DAILY 08/30/20 08/30/20 Unknown History [Losartan-Hctz 100-25 mg Tab] Metoprolol Tartrate 25 mg PO BID 08/30/20 08/30/20 Unknown History Mirtazapine [Remeron] 30 mg PO HS 08/30/20 08/30/20 Unknown History Sevelamer Carbonate [Renvela] 800 mg PO TIDWM 08/30/20 08/30/20 Unknown History Vit B Complx C/Folic Acid/Zinc 0.8 mg PO DAILY 08/30/20 08/30/20 Unknown History [Dialyvite 800-Zinc 15 Tab] Zolpidem Tartrate [Edluar SUBL] 5 mg PO QHS PRN 08/30/20 08/30/20 Unknown History calcitrioL 0.5 mcg PO DAILY 08/30/20 08/30/20 Unknown History Active Medications: Generic Name Dose Route Start Last Admin Trade Name Freq PRN Reason Stop Dose Admin Acetaminophen 650 mg 09/01/20 00:27 09/04/20 04:34 Acetaminophen 325 Mg/10.15 Ml Oral Liqd Unit Dose FEEDTUBE 650 mg Q6H PRN Administration Non Cardiac Pain or Temp>100.5 Amlodipine Besylate 10 mg 09/03/20 11:00 09/04/20 09:07 Amlodipine 10 Mg Tab PO 10 mg QDAY ANIYAH Administration Lipase/Protease/Amylase 1 each 08/30/20 14:27 Lipase 10,500/Protease 25,000/Amylase 43,750 (Units) Dr Duran FEEDTUBE PRN PRN For Clogged Feeding Tube Dextrose 50 ml 08/30/20 19:48 Dextrose 50% In Water (25gm) 50 Ml Syringe IV Q30MIN PRN Hypoglycemia Protocol Famotidine 20 mg 09/02/20 10:00 09/04/20 09:08 Famotidine 20 Mg Tab PO 20 mg DAILY ANIYAH Administration Fentanyl 50 mcg 08/30/20 14:05 Fentanyl 100 Mcg/2 Ml Inj IV Q10MIN PRN ANALGESIA Heparin Sodium (Porcine) 5,000 unit 08/30/20 06:00 09/05/20 06:04 Heparin 5,000 Unit/1 Ml Vial SUB-Q 5,000 unit Q8HR ANIYAH Administration Hydralazine HCl 10 mg 08/31/20 18:14 09/04/20 04:34 Hydralazine 20 Mg/1 Ml Inj IV 10 mg Q4HR PRN Administration Hypertension Hydrophilic Ointment 1 applic 08/30/20 14:05 Lip Therapy Vaseline TP Q2HR PRN Dry Lips Sodium Chloride 100 mls @ 999 mls/hr 08/30/20 09:00 Nacl 0.9% IV ARMIDA PRN Hypotension Propofol 1,000 mg in 100 mls @ 2.381 mls/hr 08/30/20 13:00 08/31/20 16:39 Diprivan 10 Mg/Ml IV 0 mcg/kg/min TITR ANIYAH 0 mls/hr Titration Protocol 5 MCG/KG/MIN Meropenem 500 mg in 50 mls @ 50 mls/hr 08/30/20 14:00 09/04/20 13:42 Merrem/Ns 500 Mg/50 Ml IV 09/06/20 14:59 50 mls/hr Q24H ANIYAH Administration Fentanyl Citrate 2,000 mcg in 100 mls @ 3.969 mls/hr 08/30/20 15:00 09/01/20 15:41 Fentanyl Drip Premix IV 0 mcg/kg/hr TITR ANIYAH 0 mls/hr Titration Protocol 1 MCG/KG/HR Insulin Glargine 30 units 09/03/20 10:00 09/04/20 09:07 Insulin Glargine 100 Units/Ml SUB-Q 30 units DAILY ANIYAH Administration Insulin Human Lispro 5 unit 09/04/20 08:00 09/04/20 21:23 Insulin Lispro 100 Unit/Ml SUB-Q Not Given TID [facility] Insulin Human Regular 0 units 09/01/20 10:00 09/05/20 06:05 Insulin Regular, Human 100 Units/1 Ml SUB-Q 3 units Q4HR [facility] Administration Protocol Levetiracetam 750 mg 09/04/20 22:00 09/04/20 21:33 Levetiracetam 500 Mg/5 Ml Oral Liqd PO 750 mg BID ANIYAH Administration Magnesium Hydroxide 30 ml 08/30/20 04:41 Magnesium Hydroxide (Mom) Oral Liqd Udc PO Q4H PRN Constipation Metoprolol Tartrate 50 mg 09/03/20 11:00 09/04/20 21:31 Metoprolol Tartrate 50 Mg Tab PO 50 mg BID [facility] Administration Multi-Ingred Cream/Lotion/Oil/Oint 1 applic 08/30/20 14:05 08/31/20 01:17 Mineral Oil/Petrolatum, White Ophth Oint 3.5 Gm OU 1 applic Q4HR PRN Administration Dry Eye(s) Nitroglycerin 0.4 mg 09/04/20 06:00 09/05/20 05:56 Nitroglycerin 0.4 Mg Patch 24hr TD Not Given QDAY@0600 [facility] Ondansetron HCl 4 mg 08/30/20 04:41 Ondansetron 4 Mg/2 Ml Inj IV Q8H PRN Nausea And Vomiting Senna/Docusate Sodium 1 tab 08/30/20 22:00 09/04/20 21:31 Sennosides/Docusate Sodium 8.6/50 Mg Tab FEEDTUBE 1 tab BID ANIYAH Administration Simple Syrup 15 ml 08/30/20 14:27 Simple Syrup 15 Ml FEEDTUBE PRN PRN Hypoglycemia Simple Syrup 30 ml 08/30/20 14:27 Simple Syrup 15 Ml FEEDTUBE PRN PRN Hypoglycemia Sodium Bicarbonate 325 mg 08/30/20 14:27 Sodium Bicarbonate 325 Mg Tab FEEDTUBE PRN PRN For Clogged Feeding Tube Sodium Chloride 10 ml 08/30/20 10:00 09/04/20 22:01 Sodium Chloride 0.9% 10 Ml Flush Syringe IV 10 ml BID ANIYAH Administration Sodium Chloride 10 ml 08/30/20 04:41 Sodium Chloride 0.9% 10 Ml Flush Syringe IV PRN PRN LINE FLUSH
[2020-09-05] MEDS: INSULIN LISPRO 100 UNIT/ML SUB-Q SCH ×3 (08:26→20:23)
[2020-09-05] MEDS: amLODIPine 10 MG TAB PO SCH (09:33)
[2020-09-05] MEDS: FAMOTIDINE 20 MG TAB PO SCH (09:33)
[2020-09-05] MEDS: levETIRAcetam 500 MG/5 ML ORAL LIQD PO SCH ×2 (09:33→21:41)
[2020-09-05] MEDS: INSULIN GLARGINE 100 UNITS/ML SUB-Q SCH (09:33)
[2020-09-05] MEDS: METOPROLOL TARTRATE 50 MG TAB PO SCH ×2 (09:34→21:41)
[2020-09-05] MEDS: SENNOSIDES/DOCUSATE SODIUM 8.6/50 MG TAB FEEDTUBE SCH ×2 (09:34→21:42)
--- NOTE | 2020-09-05 10:27 | Progress Note ---
Assessment and Plan Out of hospital cardiopulmonary arrest Brain MRI is consistent with anoxic brain injury normal LVEF 55-60% by echocardiogram no evidence of DVT by LE duplex End-stage renal disease on hemodialysis Hx of multiple myeloma s/p chemotherapy Hypertension Diabetes Continue intravenous nitro drip and intravenous metoprolol for optimal hyper tension management. Supportive cardiac management. Family leaning towards hospice care Subjective Date of service: 09/05/20 Principal diagnosis: Cardiac arrest; Ac. hypoxemic resp failure; PNA; ESRD; NSTEMI; Hyperkalemia Interval history: General condition the same. Objective Vital Signs Temp Pulse Pulse Resp BP Pulse Ox 09/05/20 10:15 86 26 H 147/60 99 09/05/20 10:00 88 25 H 147/60 99 09/05/20 09:45 90 26 H 153/48 97 09/05/20 09:34 92 H 153/48 09/05/20 09:33 93 H 153/48 09/05/20 09:31 90 27 H 153/48 95 09/05/20 09:15 92 H 25 H 164/41 95 09/05/20 09:01 93 H 23 164/41 96 09/05/20 08:45 92 H 22 134/42 97 09/05/20 08:31 94 H 18 160/43 99 09/05/20 08:15 94 H 24 141/45 96 09/05/20 08:00 98.9 F 96 H 26 H 134/42 95 09/05/20 07:55 88 26 H 164/41 96 09/05/20 07:45 94 H 22 141/45 99 09/05/20 07:30 96 H 19 119/41 100 09/05/20 07:15 94 H 18 142/47 100 09/05/20 07:01 94 H 18 142/47 100 09/05/20 06:45 96 H 21 144/45 99 09/05/20 06:31 92 H 19 144/45 100 09/05/20 06:15 92 H 24 145/43 95 09/05/20 06:01 93 H 26 H 145/43 95 09/05/20 05:56 92 H 135/42 09/05/20 05:45 91 H 16 135/42 100 09/05/20 05:31 92 H 21 135/42 97 09/05/20 05:15 92 H 14 134/46 100 09/05/20 05:01 91 H 17 150/42 100 20/21 04:45 92 H 20 129/40 100 21 04:30 92 H 21 129/40 100 09/05/20 04:15 91 H 20 129/45 100 09/05/20 04:00 85 16 129/45 100 09/05/20 03:47 86 118/49 98 09/05/20 03:45 86 25 H 119/41 97 20 03:30 83 22 118/49 99 09/05/20 03:20 98.6 F 09/05/20 03:15 85 24 119/41 97 09/05/20 03:00 92 H 15 119/41 98 09/05/20 02:45 89 24 120/49 98 09/05/20 02:30 90 15 120/49 100 09/05/20 02:15 86 18 114/48 97 09/05/20 02:00 88 22 114/48 96 09/05/20 01:45 87 20 108/45 100 09/05/20 01:30 83 18 108/45 100 09/05/20 01:16 84 17 100 09/05/20 01:01 90 14 108/37 100 09/05/20 00:45 88 17 108/37 100 09/05/20 00:30 90 19 103/43 100 09/05/20 00:15 90 22 102/36 100 09/05/20 00:00 85 18 102/36 100 09/04/20 23:47 90 110/41 100 09/04/20 23:45 85 25 H 110/41 100 09/04/20 23:43 99.9 F H 09/04/20 23:39 84 22 110/41 100 09/04/20 23:30 90 25 H 113/40 100 09/04/20 23:15 91 H 25 H 114/42 100 09/04/20 23:01 85 24 114/42 100 09/04/20 22:45 89 22 109/38 100 09/04/20 22:30 90 17 100/36 98 09/04/20 22:15 91 H 20 109/38 97 09/04/20 22:00 97 H 19 132/45 97 09/04/20 21:45 99 H 25 H 132/45 97 09/04/20 21:31 101 H 132/45 09/04/20 21:30 97 H 20 132/45 97 09/04/20 21:15 97 H 27 H 139/47 95 09/04/20 21:00 98 H 23 139/47 100 09/04/20 20:45 101 H 25 H 137/47 100 09/04/20 20:30 91 H 25 H 137/47 100 09/04/20 20:15 94 H 22 118/49 100 09/04/20 20:00 92 H 24 118/49 100 09/04/20 19:46 99.8 F H 09/04/20 19:45 97 H 29 H 133/44 95 09/04/20 19:31 97 H 29 H 136/42 96 09/04/20 19:15 97 H 27 H 141/50 96 09/04/20 19:01 94 H 29 H 133/44 97 09/04/20 18:45 94 H 28 H 121/45 97 09/04/20 18:31 94 H 29 H 131/50 97 09/04/20 18:15 92 H 28 H 121/45 97 09/04/20 18:01 92 H 28 H 121/45 96 09/04/20 17:45 93 H 26 H 130/40 97 09/04/20 17:31 86 25 H 130/40 97 09/04/20 17:15 90 28 H 127/43 98 09/04/20 17:00 89 26 H 127/43 98 09/04/20 16:45 89 27 H 121/43 99 09/04/20 16:30 93 H 26 H 121/43 99 09/04/20 16:15 90 28 H 124/43 97 09/04/20 16:01 93 H 29 H 124/43 96 09/04/20 16:00 98.9 F 92 H 92 H 29 H 96 09/04/20 15:45 93 H 28 H 124/43 97 09/04/20 15:31 92 H 29 H 121/42 98 09/04/20 15:15 88 27 H 122/46 98 09/04/20 15:00 91 H 29 H 122/46 98 09/04/20 14:45 90 28 H 111/41 98 09/04/20 14:30 90 27 H 111/41 97 09/04/20 14:15 91 H 29 H 111/45 96 09/04/20 14:00 92 H 27 H 111/45 96 09/04/20 13:45 90 27 H 119/44 95 09/04/20 13:30 88 28 H 119/44 95 09/04/20 13:15 88 27 H 123/52 94 09/04/20 13:01 87 27 H 123/52 100 09/04/20 12:45 88 27 H 96/39 100 09/04/20 12:43 99.9 F H 09/04/20 12:30 90 28 H 96/39 100 09/04/20 12:15 92 H 28 H 103/42 100 09/04/20 12:00 85 90 24 103/42 100 09/04/20 11:55 91 H 27 H 102/43 100 09/04/20 11:45 89 29 H 94/37 100 09/04/20 11:30 92 H 22 94/37 100 09/04/20 11:15 89 21 95/39 98 09/04/20 11:00 91 H 24 88/37 99 09/04/20 10:45 90 21 92/39 99 09/04/20 10:30 90 23 92/39 97 - Physical Examination General: Other (unresponsive on the vent) HEENT: Positive: Other (Pupils fixed) Neck: Positive: neck supple, trachea midline Cardiac: Positive: Reg Rate and Rhythm Lungs: Positive: clear to auscultation Neuro: Positive: Other (Unresponsive, on the vent) Abdomen: Positive: Unremarkable, Soft Skin: Positive: Clear Extremities: Absent: edema - Allied health notes Allied health notes reviewed: nursing
--- NOTE | 2020-09-05 10:50 | Progress Note ---
Assessment and Plan Cardiac arrest with return of spontaneous circulation Acute hypoxemic respiratory failure Bilateral pneumonia, possibly aspiration Bilateral pulmonary edema End-stage renal disease, on dialysis NSTEMI Severe hyperkalemia History of multiple myeloma History of hypertension Anemia that is microcytic Elevated serum troponin Get CXR and ABG in am - continue to titrate supplemental oxygen to maintain sPO2 89-92% - VAP bundle addressed, aspiration precautions HOB >40 - continue lung protective strategies - continue bronchodilators with pulmonary hygiene per RT - continue HD/UF for toxin and volume clearance, conservative fluid therapy as tolerated by hemodynamics - continue to avoid nephrotoxins, renally dose all medications - continue accuchecks with glycemic control per SSI (While critically ill target blood glucose of 140-180 mg/dL; avoid hypoglycemia) - complete ABs per ID recs -currently on Meropenem to complete 8 days of therapy - continue enteral nutritional support at goal rate as tolerated -VTE prophylaxis -Stress ulcer prophylaxis - PT/OT/ROM exercises - continue mobility , off loading, frequent turning to prevent pressure ulcers - discharge planning ongoing concurrently Goals of care discussions with family on going- patient remains full resuscitation for now. Plan for inpatient hospice in the morning per case management CONDITION: CRITICAL PROGNOSIS: GUARDED CODE STATUS: FULL CODE The high probability of a clinically significant, sudden or life-threatening deterioration of the [respiratory, cardiovascular, hematologic, renal & neurologic] system(s) required my full and direct attention, intervention and personal management. The aggregate critical care time was [33] minutes without overlap. Time includes spent on; [x] Data Review and interpretation [x] Patient assessment and monitoring of vital signs [x] Documentation [x] Medication orders and management Subjective Date of service: 09/05/20 Principal diagnosis: Cardiac arrest; Ac. hypoxemic resp failure; PNA; ESRD; NSTEMI; Hyperkalemia Interval history: Patient is seen today for: Cardiac arrest with ROSC; Acute hypoxemic respiratory failure; Aspiration Pneumonia; ESRD on dialysis; NSTEMI; Hyperkalemia Seen and examined at bedside; 24hour events reviewed; nursing and respiratory c are staff consulted; no adverse overnight events reported to me; resting peacefully in bed; MRI confirmed anoxic injury; she remains on MVS with persistent mental status changes.Tolerating SBT with PS 10 . Seen with [facility] Objective Vital Signs - 12hr 09/04/20 09/04/20 09/04/20 23:01 23:15 23:30 Temperature Pulse Rate 85 91 H 90 Pulse Rate [ From Monitor] Respiratory 24 25 H 25 H Rate Blood Pressure 114/42 114/42 113/40 O2 Sat by Pulse 100 100 100 Oximetry 09/04/20 09/04/20 09/04/20 23:39 23:43 23:45 Temperature 99.9 F H Pulse Rate 84 85 Pulse Rate [ From Monitor] Respiratory 22 25 H Rate Blood Pressure 110/41 110/41 O2 Sat by Pulse 100 100 Oximetry 09/04/20 09/05/20 09/05/20 23:47 00:00 00:15 Temperature Pulse Rate 90 85 90 Pulse Rate [ From Monitor] Respiratory 18 22 Rate Blood Pressure 110/41 102/36 102/36 O2 Sat by Pulse 100 100 100 Oximetry 09/05/20 09/05/20 09/05/20 00:30 00:45 01:01 Temperature Pulse Rate 90 88 90 Pulse Rate [ From Monitor] Respiratory 19 17 14 Rate Blood Pressure 103/43 108/37 108/37 O2 Sat by Pulse 100 100 100 Oximetry 09/05/20 09/05/20 09/05/20 01:16 01:30 01:45 Temperature Pulse Rate 84 83 87 Pulse Rate [ From Monitor] Respiratory 17 18 20 Rate Blood Pressure 108/45 108/45 O2 Sat by Pulse 100 100 100 Oximetry 09/05/20 09/05/20 09/05/20 02:00 02:15 02:30 Temperature Pulse Rate 88 86 90 Pulse Rate [ From Monitor] Respiratory 22 18 15 Rate Blood Pressure 114/48 114/48 120/49 O2 Sat by Pulse 96 97 100 Oximetry 09/05/20 09/05/20 09/05/20 02:45 03:00 03:15 Temperature Pulse Rate 89 92 H 85 Pulse Rate [ From Monitor] Respiratory 24 15 24 Rate Blood Pressure 120/49 119/41 119/41 O2 Sat by Pulse 98 98 97 Oximetry 09/05/20 09/05/20 09/05/20 03:20 03:30 03:45 Temperature 98.6 F Pulse Rate 83 86 Pulse Rate [ From Monitor] Respiratory 22 25 H Rate Blood Pressure 118/49 119/41 O2 Sat by Pulse 99 97 Oximetry 09/05/20 09/05/20 09/05/20 03:47 04:00 04:15 Temperature Pulse Rate 86 85 91 H Pulse Rate [ From Monitor] Respiratory 16 20 Rate Blood Pressure 118/49 129/45 129/45 O2 Sat by Pulse 98 100 100 Oximetry 09/05/20 09/05/20 09/05/20 04:30 04:45 05:01 Temperature Pulse Rate 92 H 92 H 91 H Pulse Rate [ From Monitor] Respiratory 21 20 17 Rate Blood Pressure 129/40 129/40 150/42 O2 Sat by Pulse 100 100 100 Oximetry 09/05/20 09/05/20 09/05/20 05:15 05:31 05:45 Temperature Pulse Rate 92 H 92 H 91 H Pulse Rate [ From Monitor] Respiratory 14 21 16 Rate Blood Pressure 134/46 135/42 135/42 O2 Sat by Pulse 100 97 100 Oximetry 09/05/20 09/05/20 09/05/20 05:56 06:01 06:15 Temperature Pulse Rate 92 H 93 H 92 H Pulse Rate [ From Monitor] Respiratory 26 H 24 Rate Blood Pressure 135/42 145/43 145/43 O2 Sat by Pulse 95 95 Oximetry 09/05/20 09/05/20 09/05/20 06:31 06:45 07:01 Temperature Pulse Rate 92 H 96 H 94 H Pulse Rate [ From Monitor] Respiratory 19 21 18 Rate Blood Pressure 144/45 144/45 142/47 O2 Sat by Pulse 100 99 100 Oximetry 09/05/20 09/05/20 09/05/20 07:15 07:30 07:45 Temperature Pulse Rate 94 H 96 H 94 H Pulse Rate [ From Monitor] Respiratory 18 19 22 Rate Blood Pressure 142/47 119/41 141/45 O2 Sat by Pulse 100 100 99 Oximetry 09/05/20 09/05/20 09/05/20 07:55 08:00 08:15 Temperature 98.9 F Pulse Rate 88 96 H 94 H Pulse Rate [ 96 H From Monitor] Respiratory 26 H 26 H 24 Rate Blood Pressure 164/41 134/42 141/45 O2 Sat by Pulse 96 95 96 Oximetry 09/05/20 09/05/20 09/05/20 08:31 08:45 09:01 Temperature Pulse Rate 94 H 92 H 93 H Pulse Rate [ From Monitor] Respiratory 18 22 23 Rate Blood Pressure 160/43 134/42 164/41 O2 Sat by Pulse 99 97 96 Oximetry 09/05/20 09/05/20 09/05/20 09:15 09:31 09:33 Temperature Pulse Rate 92 H 90 93 H Pulse Rate [ From Monitor] Respiratory 25 H 27 H Rate Blood Pressure 164/41 153/48 153/48 O2 Sat by Pulse 95 95 Oximetry 09/05/20 09/05/20 09/05/20 09:34 09:45 10:00 Temperature Pulse Rate 92 H 90 88 Pulse Rate [ From Monitor] Respiratory 26 H 25 H Rate Blood Pressure 153/48 153/48 147/60 O2 Sat by Pulse 97 99 Oximetry 09/05/20 10:15 Temperature Pulse Rate 86 Pulse Rate [ From Monitor] Respiratory 26 H Rate Blood Pressure 147/60 O2 Sat by Pulse 99 Oximetry Constitutional: no acute distress, other (elderly female with normal respiratory effort at rest on MVS) Eyes: non-icteric ENT: oropharynx moist, other (ETT 23 cm COLLEEN) Neck: supple, no lymphadenopathy, no JVD Effort: normal Ascultation: Bilateral: rhonchi Percussion: Bilateral: not dull Cardiovascular: regular rate and rhythm, other (S1,S2) Gastrointestinal: normoactive bowel sounds, soft, non-tender Integumentary: normal Extremities: no cyanosis, pulses normal, no ischemia or petechiae Neurologic: pupils equal and round, other (unresponsive, not obeying commands) Psychiatric: other (unable to assess re: AMS) CBC and BMP: 09/07/20 04:12 09/07/20 04:12 ABG, PT/INR, D-dimer: ABG ABG pH 7.506 pH Units (7.350-7.450) H 09/02/20 03:40 POC ABG pCO2 35.9 mmHg (32.0-48.0) 09/01/20 03:13 ABG pCO2 38.0 mm Hg 09/02/20 03:40 POC ABG pO2 89.7 mmHg (83-108) 09/01/20 03:13 ABG pO2 83.1 mm Hg (80.0-90.0) 09/02/20 03:40 POC ABG HCO3 28.6 09/01/20 03:13 ABG O2 Saturation 97.2 % (95.0-99.0) 09/02/20 03:40 PT/INR, D-dimer PT 12.8 Sec. (12.2-14.9) 08/31/20 05:45 INR 0.90 (0.87-1.13) 08/31/20 05:45 D-Dimer > 43516 ng/mlDDU (0-234) H 08/30/20 03:10 Abnormal lab findings: Abnormal Labs 08/30/20 08/30/20 08/30/20 00:14 00:15 00:15 WBC RBC 2.83 L Hgb 9.8 L Hct MCV 112 H MCH 35 H RDW 19.9 H Plt Count 95 L Lymph % (Auto) Lymph # (Auto) Seg Neutrophils % Nucleated RBC % 1.0 H Seg Neutrophils # D-Dimer ABG pH 7.199 L POC ABG pCO2 49.3 H POC ABG pO2 ABG HCO3 ABG Base Excess ABG Hemoglobin 11.9 L ABG Oxyhemoglobin 93.0 L ABG Sodium ABG Potassium 6.9 H ABG Chloride ABG Glucose 158 H Oxyhemoglobin Carboxyhemoglobin 2.8 H Sodium Potassium 7.0 H* Chloride Carbon Dioxide 18 L BUN 68 H Creatinine 8.3 H Glucose 174 H POC Glucose Calcium Phosphorus Magnesium Ferritin AST 68 H Alkaline Phosphatase 414 H Lactate Dehydrogenase Troponin T 0.085 H Total Protein 5.6 L Albumin 3.4 L HDL Cholesterol 66 H Arterial Blood Glucose 158 H Arterial Blood Ionized Calcium 08/30/20 08/30/20 08/30/20 00:15 00:15 03:10 WBC RBC Hgb Hct MCV MCH RDW Plt Count Lymph % (Auto) Lymph # (Auto) Seg Neutrophils % Nucleated RBC % Seg Neutrophils # D-Dimer 6083.16 H > 53784 H ABG pH POC ABG pCO2 POC ABG pO2 ABG HCO3 ABG Base Excess ABG Hemoglobin ABG Oxyhemoglobin ABG Sodium ABG Potassium ABG Chloride ABG Glucose Oxyhemoglobin Carboxyhemoglobin Sodium Potassium Chloride Carbon Dioxide BUN Creatinine Glucose POC Glucose Calcium Phosphorus 11.50 H Magnesium 3.80 H Ferritin AST Alkaline Phosphatase Lactate Dehydrogenase Troponin T Total Protein Albumin HDL Cholesterol Arterial Blood Glucose Arterial Blood Ionized Calcium 08/30/20 08/30/20 08/30/20 03:10 03:10 04:49 WBC RBC Hgb Hct MCV MCH RDW Plt Count Lymph % (Auto) Lymph # (Auto) Seg Neutrophils % Nucleated RBC % Seg Neutrophils # D-Dimer ABG pH POC ABG pCO2 POC ABG pO2 ABG HCO3 ABG Base Excess ABG Hemoglobin 10.8 L ABG Oxyhemoglobin ABG Sodium ABG Potassium 6.7 H ABG Chloride ABG Glucose 137 H Oxyhemoglobin Carboxyhemoglobin Sodium Potassium Chloride Carbon Dioxide BUN Creatinine Glucose 126 H POC Glucose Calcium Phosphorus Magnesium Ferritin 830.0 H AST Alkaline Phosphatase Lactate Dehydrogenase 400 H Troponin T Total Protein Albumin HDL Cholesterol Arterial Blood Glucose 137 H Arterial Blood Ionized Calcium 4.5 L 08/30/20 08/30/20 08/30/20 07:13 15:03 15:03 WBC 17.2 H RBC 3.23 L Hgb Hct MCV 108 H MCH 34 H RDW 19.4 H Plt Count 90 L Lymph % (Auto) Lymph # (Auto) Seg Neutrophils % Nucleated RBC % Seg Neutrophils # D-Dimer ABG pH POC ABG pCO2 POC ABG pO2 ABG HCO3 ABG Base Excess ABG Hemoglobin ABG Oxyhemoglobin ABG Sodium ABG Potassium ABG Chloride ABG Glucose Oxyhemoglobin Carboxyhemoglobin Sodium Potassium 8.2 H* 6.5 H* D Chloride 96.7 L Carbon Dioxide 21 L BUN 52 H Creatinine 5.7 H Glucose 220 H POC Glucose Calcium Phosphorus Magnesium Ferritin AST 68 H Alkaline Phosphatase 364 H Lactate Dehydrogenase Troponin T Total Protein Albumin 3.7 L HDL Cholesterol Arterial Blood Glucose Arterial Blood Ionized Calcium 08/30/20 08/30/20 08/31/20 17:27 21:03 04:07 WBC RBC Hgb Hct MCV MCH RDW Plt Count Lymph % (Auto) Lymph # (Auto) Seg Neutrophils % Nucleated RBC % Seg Neutrophils # D-Dimer ABG pH 7.498 H POC ABG pCO2 27.9 L POC ABG pO2 126.9 H ABG HCO3 ABG Base Excess ABG Hemoglobin 10.1 L ABG Oxyhemoglobin 98.3 H ABG Sodium 134.3 L ABG Potassium 6.7 H ABG Chloride ABG Glucose 261 H Oxyhemoglobin Carboxyhemoglobin 0.1 L Sodium Potassium Chloride Carbon Dioxide BUN Creatinine Glucose POC Glucose 223 H 230 H Calcium Phosphorus Magnesium Ferritin AST Alkaline Phosphatase Lactate Dehydrogenase Troponin T Total Protein Albumin HDL Cholesterol Arterial Blood Glucose 261 H Arterial Blood Ionized Calcium 3.6 L 08/31/20 08/31/20 08/31/20 05:01 05:45 05:45 WBC 13.1 H RBC 2.83 L Hgb 9.6 L Hct 29.8 L MCV 105 H MCH 34 H RDW 18.9 H Plt Count 88 L Lymph % (Auto) 6.9 L Lymph # (Auto) 0.9 L Seg Neutrophils % 87.8 H Nucleated RBC % Seg Neutrophils # 11.5 H D-Dimer ABG pH POC ABG pCO2 POC ABG pO2 ABG HCO3 ABG Base Excess ABG Hemoglobin ABG Oxyhemoglobin ABG Sodium ABG Potassium ABG Chloride ABG Glucose Oxyhemoglobin Carboxyhemoglobin Sodium Potassium 7.1 H* Chloride 96.7 L Carbon Dioxide BUN 74 H Creatinine 7.0 H Glucose 254 H POC Glucose 256 H Calcium 7.6 L Phosphorus Magnesium Ferritin AST Alkaline Phosphatase Lactate Dehydrogenase Troponin T Total Protein Albumin HDL Cholesterol Arterial Blood Glucose Arterial Blood Ionized Calcium 08/31/20 08/31/20 09/01/20 11:38 23:31 03:13 WBC RBC Hgb Hct MCV MCH RDW Plt Count Lymph % (Auto) Lymph # (Auto) Seg Neutrophils % Nucleated RBC % Seg Neutrophils # D-Dimer ABG pH 7.519 H POC ABG pCO2 POC ABG pO2 ABG HCO3 ABG Base Excess ABG Hemoglobin 9.3 L ABG Oxyhemoglobin ABG Sodium 134.7 L ABG Potassium ABG Chloride 94.0 L ABG Glucose 441 H Oxyhemoglobin Carboxyhemoglobin Sodium Potassium Chloride Carbon Dioxide BUN Creatinine Glucose POC Glucose 294 H 426 H Calcium Phosphorus Magnesium Ferritin AST Alkaline Phosphatase Lactate Dehydrogenase Troponin T Total Protein Albumin HDL Cholesterol Arterial Blood Glucose 441 H Arterial Blood Ionized Calcium 3.8 L 09/01/20 09/01/20 09/01/20 05:20 10:32 11:45 WBC RBC Hgb Hct MCV MCH RDW Plt Count Lymph % (Auto) Lymph # (Auto) Seg Neutrophils % Nucleated RBC % Seg Neutrophils # D-Dimer ABG pH POC ABG pCO2 POC ABG pO2 ABG HCO3 ABG Base Excess ABG Hemoglobin ABG Oxyhemoglobin ABG Sodium ABG Potassium ABG Chloride ABG Glucose Oxyhemoglobin Carboxyhemoglobin Sodium Potassium Chloride Carbon Dioxide BUN Creatinine Glucose POC Glucose 422 H 227 H 203 H Calcium Phosphorus Magnesium Ferritin AST Alkaline Phosphatase Lactate Dehydrogenase Troponin T Total Protein Albumin HDL Cholesterol Arterial Blood Glucose Arterial Blood Ionized Calcium 09/01/20 09/01/20 09/01/20 13:34 17:11 17:29 WBC RBC Hgb Hct MCV MCH RDW Plt Count Lymph % (Auto) Lymph # (Auto) Seg Neutrophils % Nucleated RBC % Seg Neutrophils # D-Dimer ABG pH POC ABG pCO2 POC ABG pO2 ABG HCO3 ABG Base Excess ABG Hemoglobin ABG Oxyhemoglobin ABG Sodium ABG Potassium ABG Chloride ABG Glucose Oxyhemoglobin Carboxyhemoglobin Sodium Potassium Chloride 94.5 L Carbon Dioxide BUN 29 H Creatinine 3.4 H D Glucose 241 H POC Glucose 212 H 198 H Calcium 8.2 L Phosphorus Magnesium Ferritin AST Alkaline Phosphatase Lactate Dehydrogenase Troponin T Total Protein Albumin HDL Cholesterol Arterial Blood Glucose Arterial Blood Ionized Calcium 09/01/20 09/02/20 09/02/20 21:33 03:08 03:40 WBC RBC Hgb Hct MCV MCH RDW Plt Count Lymph % (Auto) Lymph # (Auto) Seg Neutrophils % Nucleated RBC % Seg Neutrophils # D-Dimer ABG pH 7.506 H POC ABG pCO2 POC ABG pO2 ABG HCO3 29.4 H ABG Base Excess 5.9 H ABG Hemoglobin 8.3 L ABG Oxyhemoglobin ABG Sodium ABG Potassium ABG Chloride ABG Glucose Oxyhemoglobin 94.8 L Carboxyhemoglobin Sodium Potassium Chloride Carbon Dioxide BUN Creatinine Glucose POC Glucose 188 H 179 H Calcium Phosphorus Magnesium Ferritin AST Alkaline Phosphatase Lactate Dehydrogenase Troponin T Total Protein Albumin HDL Cholesterol Arterial Blood Glucose Arterial Blood Ionized Calcium 09/02/20 09/02/20 09/02/20 05:55 07:12 09:28 WBC RBC Hgb Hct MCV MCH RDW Plt Count Lymph % (Auto) Lymph # (Auto) Seg Neutrophils % Nucleated RBC % Seg Neutrophils # D-Dimer ABG pH POC ABG pCO2 POC ABG pO2 ABG HCO3 ABG Base Excess ABG Hemoglobin ABG Oxyhemoglobin ABG Sodium ABG Potassium ABG Chloride ABG Glucose Oxyhemoglobin Carboxyhemoglobin Sodium 136 L Potassium Chloride 91.6 L Carbon Dioxide BUN 52 H Creatinine 5.5 H D Glucose 176 H POC Glucose 185 H 196 H Calcium 7.7 L Phosphorus Magnesium Ferritin AST Alkaline Phosphatase Lactate Dehydrogenase Troponin T Total Protein Albumin HDL Cholesterol Arterial Blood Glucose Arterial Blood Ionized Calcium 09/02/20 09/02/20 09/02/20 11:06 13:03 17:22 WBC RBC Hgb Hct MCV MCH RDW Plt Count Lymph % (Auto) Lymph # (Auto) Seg Neutrophils % Nucleated RBC % Seg Neutrophils # D-Dimer ABG pH POC ABG pCO2 POC ABG pO2 ABG HCO3 ABG Base Excess ABG Hemoglobin ABG Oxyhemoglobin ABG Sodium ABG Potassium ABG Chloride ABG Glucose Oxyhemoglobin Carboxyhemoglobin Sodium Potassium Chloride Carbon Dioxide BUN Creatinine Glucose POC Glucose 224 H 252 H 196 H Calcium Phosphorus Magnesium Ferritin AST Alkaline Phosphatase Lactate Dehydrogenase Troponin T Total Protein Albumin HDL Cholesterol Arterial Blood Glucose Arterial Blood Ionized Calcium 09/02/20 09/03/20 09/03/20 21:13 02:02 04:12 WBC RBC Hgb Hct MCV MCH RDW Plt Count Lymph % (Auto) Lymph # (Auto) Seg Neutrophils % Nucleated RBC % Seg Neutrophils # D-Dimer ABG pH POC ABG pCO2 POC ABG pO2 ABG HCO3 ABG Base Excess ABG Hemoglobin ABG Oxyhemoglobin ABG Sodium ABG Potassium ABG Chloride ABG Glucose Oxyhemoglobin Carboxyhemoglobin Sodium 136 L Potassium Chloride 90.3 L Carbon Dioxide BUN 79 H Creatinine 8.1 H Glucose 223 H POC Glucose 204 H 205 H Calcium 7.1 L Phosphorus Magnesium Ferritin AST Alkaline Phosphatase Lactate Dehydrogenase Troponin T Total Protein Albumin HDL Cholesterol Arterial Blood Glucose Arterial Blood Ionized Calcium 09/03/20 09/03/20 09/03/20 04:12 05:35 09:28 WBC RBC 2.35 L Hgb 8.3 L Hct 25.1 L MCV 107 H MCH 35 H RDW 18.5 H Plt Count 87 L Lymph % (Auto) Lymph # (Auto) Seg Neutrophils % Nucleated RBC % Seg Neutrophils # D-Dimer ABG pH POC ABG pCO2 POC ABG pO2 ABG HCO3 ABG Base Excess ABG Hemoglobin ABG Oxyhemoglobin ABG Sodium ABG Potassium ABG Chloride ABG Glucose Oxyhemoglobin Carboxyhemoglobin Sodium Potassium Chloride Carbon Dioxide BUN Creatinine Glucose POC Glucose 219 H 202 H Calcium Phosphorus Magnesium Ferritin AST Alkaline Phosphatase Lactate Dehydrogenase Troponin T Total Protein Albumin HDL Cholesterol Arterial Blood Glucose Arterial Blood Ionized Calcium 09/03/20 09/03/20 09/03/20 11:36 13:41 16:56 WBC RBC Hgb Hct MCV MCH RDW Plt Count Lymph % (Auto) Lymph # (Auto) Seg Neutrophils % Nucleated RBC % Seg Neutrophils # D-Dimer ABG pH POC ABG pCO2 POC ABG pO2 ABG HCO3 ABG Base Excess ABG Hemoglobin ABG Oxyhemoglobin ABG Sodium ABG Potassium ABG Chloride ABG Glucose Oxyhemoglobin Carboxyhemoglobin Sodium Potassium Chloride Carbon Dioxide BUN Creatinine Glucose POC Glucose 216 H 224 H 298 H Calcium Phosphorus Magnesium Ferritin AST Alkaline Phosphatase Lactate Dehydrogenase Troponin T Total Protein Albumin HDL Cholesterol Arterial Blood Glucose Arterial Blood Ionized Calcium 09/03/20 09/04/20 09/04/20 20:49 00:23 05:28 WBC RBC Hgb Hct MCV MCH RDW Plt Count Lymph % (Auto) Lymph # (Auto) Seg Neutrophils % Nucleated RBC % Seg Neutrophils # D-Dimer ABG pH POC ABG pCO2 POC ABG pO2 ABG HCO3 ABG Base Excess ABG Hemoglobin ABG Oxyhemoglobin ABG Sodium ABG Potassium ABG Chloride ABG Glucose Oxyhemoglobin Carboxyhemoglobin Sodium Potassium Chloride Carbon Dioxide BUN Creatinine Glucose POC Glucose 228 H 228 H 283 H Calcium Phosphorus Magnesium Ferritin AST Alkaline Phosphatase Lactate Dehydrogenase Troponin T Total Protein Albumin HDL Cholesterol Arterial Blood Glucose Arterial Blood Ionized Calcium 09/04/20 09/04/20 09/04/20 10:03 17:39 21:45 WBC RBC Hgb Hct MCV MCH RDW Plt Count Lymph % (Auto) Lymph # (Auto) Seg Neutrophils % Nucleated RBC % Seg Neutrophils # D-Dimer ABG pH POC ABG pCO2 POC ABG pO2 ABG HCO3 ABG Base Excess ABG Hemoglobin ABG Oxyhemoglobin ABG Sodium ABG Potassium ABG Chloride ABG Glucose Oxyhemoglobin Carboxyhemoglobin Sodium Potassium Chloride Carbon Dioxide BUN Creatinine Glucose POC Glucose 159 H 128 H 213 H Calcium Phosphorus Magnesium Ferritin AST Alkaline Phosphatase Lactate Dehydrogenase Troponin T Total Protein Albumin HDL Cholesterol Arterial Blood Glucose Arterial Blood Ionized Calcium 09/05/20 09/05/20 02:04 05:33 WBC RBC Hgb Hct MCV MCH RDW Plt Count Lymph % (Auto) Lymph # (Auto) Seg Neutrophils % Nucleated RBC % Seg Neutrophils # D-Dimer ABG pH POC ABG pCO2 POC ABG pO2 ABG HCO3 ABG Base Excess ABG Hemoglobin ABG Oxyhemoglobin ABG Sodium ABG Potassium ABG Chloride ABG Glucose Oxyhemoglobin Carboxyhemoglobin Sodium Potassium Chloride Carbon Dioxide BUN Creatinine Glucose POC Glucose 178 H 177 H Calcium Phosphorus Magnesium Ferritin AST Alkaline Phosphatase Lactate Dehydrogenase Troponin T Total Protein Albumin HDL Cholesterol Arterial Blood Glucose Arterial Blood Ionized Calcium Allied health notes reviewed: nursing
--- NOTE | 2020-09-05 12:43 | Progress Note ---
Assessment and Plan Assessment and plan: This is 65-year-old female with DM, HTN, HLD, ESRD on HD MWF, multiple myeloma s/p chemotherapy and stem cell transplant and current tobacco abuse who was admitted s/p cardiac arrest with anoxic encephalopathy, hypertensive emergency, multifocal pneumonia and has a COVID-19 PUI COVID-19, ruled out S/p cardiac arrest Acute hypoxic respiratory failure Diffuse anoxic brain injury as evidenced by MRI Pericardial effusion Severe cardiomegaly Anoxic encephalopathy Hyperkalemia Hyperglycemia Leukocytosis Transaminitis Hypertension Hyperlipidemia ESRD on HD Multiple myeloma Current tobacco abuse Questionable seizure activity -[facility], nephrology, cardiology, infectious disease, neurology consulted, appre ciate recommendations -08/29 CXR shows moderate enlargement of cardiac silhouette, diffuse bilateral mixed chest x-ray and airspace disease -08/30 CT C-spine shows no CT evidence of acute bony abnormality the cervical spine, biapical airspace disease -08/30 CT head/brain shows no CT evidence of acute intracranial hemorrhage, mild generalized parenchymal atrophy, no evidence of midline shift or mass-effect, moderate size right frontal scalp hematoma -08/30 CTA chest shows no pulmonary embolism, mildly enlarged heart, moderate sized pericardial effusion, diffuse bilateral mixed interstitial and airspace disease with associated atelectasis. -08/30 CT abdomen/pelvis with contrast shows mild fluid-filled distended stomach, dense atherosclerotic calcification of the abdominal aorta, multiple loops of moderately prominent fecalized small bowel, moderate amount of retained stool throughout the colon which may represent possible sequela impaction and constipation, multiple colonic diverticula, several calcified uterine fibroids, bibasilar mixed interstitial and airspace disease -08/30 bilateral lower extremity Doppler ultrasound shows no evidence of DVT in either lower extremity -08/30 CXR shows moderate bilateral lateral pulmonary opacities improvement -08/30 echocardiogram shows a small to moderate sized circumferential pericardial effusion, no tamponade, left ventricle systolic function normal, LVEF 55 to 60%, mild concentric LVH, trace MR, trace TR, no pulmonary hypertension -09/01 MRI brain showed diffuse restricted diffusion in the cerebral cortex consistent with global anoxic brain injury -08/31 EEG with slow wave findings -s/p IV metoprolol and IV nitroglycerin drip -BP monitoring per protocol -PRN hydralazine, PO antihypertensives (Amlodipine, metoprolol, nitroglycerin transdermal) -Empiric antibiotics per infectious disease -08/30 tracheal aspirate pending -S/P calcium gluconate, insulin, D50 for hyperkalemia in the emergency department and repeated on 08/31 -Bowel regimen -Tube feedings, SSI, Accu-Cheks every 6, hypoglycemic protocol, long-acting insulin (titrate as needed) -Trend CBC,BMP Patient placed on Keppra DVT/GI prophylaxis: SCDs to bilateral lower extremities while in bed, PPI, heparin subcu Disposition: ICU, hospice referral made Lines: L SVC permcath, AVF The high probability of a clinically significant, sudden or life threatening deterioration of the [multi] system(s) required my full and direct attention, intervention and personal management. The aggregate critical care time was [35] minutes. This time is in addition to time spent performing reported procedures but includes the following: [x] Data Review and interpretation [x] Patient assessment and monitoring of vital signs [x] Documentation [x] Medication orders and management History Interval history: This is 65-year-old female with diabetes mellitus, hypertension, hyperlipidemia, ESRD on HD MWF via left chest permacath, multiple myeloma s/p chemotherapy and stem cell transplant with right chest port, immature right upper extremity aVF and current tobacco abuse who presented to the emergency department on 08/30 s/p cardiac arrest after being found laying in driveway, unresponsive and in asystole by EMS after being called for shortness of breath. Patient was intubated by EMS and received 3 mg epinephrine, calcium and serum bicarbonate and ROSC was eventually achieved after 10 minutes of resuscitation. Recommend emergency department revealed hyperkalemia, CXR showed moderate enlargement of cardiac silhouette, diffuse bilateral mixed interstitial and airspace disease with considerations to pulmonary edema or multifocal infectious process. Patient was admitted to the hospitalist service s/p cardiac arrest with anoxic encephalopathy, ESRD on HD, hypertensive emergency, multifocal pneumonia and a and has a COVID-19 PUI. CCM, nephrology, neurology infectious disease and cardiology were consulted. 08/30: This morning neurology was consulted, patient noted to have leukocytosis, hyperkalemia, metabolic acidosis and hyperglycemia. Patient had hyperphosphatemia, hypomagnesemia also. Patient had hemodialysis today per n ephrology. COVID-19 PCR negative. Patient was in ED holding and admitted to the ICU later during the day. Patient is sedated on fentanyl and propofol. At the time my examination she was assist-control, rate of 28, tidal and 450, 60 PEEP and FiO2 of 60%. 08/31: Patient received hemodialysis however she is hyperkalemia again which was treated with dextrose, insulin and Kionex. Patient received hemodialysis again today per nephrology. Patient continues with with meropenem until blood cultures per infectious disease. MRI brain and EEG pending, lactulose discontinued (which was started due to large stool burden). We will follow up on cultures and BMP. Patient also noted to be hyperglycemic and was started on long acting insulin. Family updated at bedside by nurse ela and Dr. Carter. 09/01: Patient was noted to be hypertensive yesterday evening and today so cardiology will start the patient on a nitroglycerin drip and IV metoprolol. CCM reduced rate. Patient received hemodialysis today and scheduled for MRI brain. Patient noted to be hyperkalemic and follow-up BMP shows a potassium of 4. Patient's MRI brain showed diffuse anoxic brain injury and Dr. Garces updated the family at bedside. 09/02: Patient had an MRI brain yesterday which showed global anoxic brain i njury. At the time of my examination patient was on PCV CPAP with tidal volume 450, FiO2 of 30. Patient is hyperglycemic and insulin dosage increased. Family decision has not been made, Dr. Silva and / Dez updated family. Neurology has signed off 09/03: Patient continues to be hypoglycemic and long-acting insulin dosage increased. She is receiving hemodialysis today. Patient has a referral to inpatient hospice. No acute events reported overnight. CM speaking to family re hospice. Cardio changed BP medications to PO. CCM to discuss goals of care and rT to rest daily on AC at night/continue CPAP trials during the day. 09/04: Patient was noted to have possible seizure activity and was given 2 mg of Ativan by CCM. Patient was later hypotensive tensive and received a 250 mL no rmal saline bolus which was communicated to nephrology. Per nephrology will like to avoid excessive fluid boluses to prevent issues with fluid overload over the weekend. At the time of my exam patient was on assist control tidal line 450, rate of 12, PEEP of 6 and 25% FiO2. Patient noted to be hyper glycemic and long-acting insulin was changed. 09/05: Patient continues to be unresponsive, Keppra was added for possible seizure disorder yesterday. No family at the bedside, patient to go to hospice most likely on Sunday. Hospitalist Physical - Physical exam Narrative exam: General appearance: No acute distress EENT: No PERRLA, pupils are not reactive. Neck: Present: supple, normal ROM Respiratory: Patient on ventilation and intubated bilateral CTA, negative: rales, rhonchi, wheezing Cardiovascular: Regular rate/rhythm, Normal S1 & S2. No gallop, rub Extremities: no ischemia, No edema, normal temperature, normal color, Full ROM Abdominal: soft, no tenderness, non-distended, normal bowel sounds Integumentary: Present: clear, warm, dry no wounds, no erythema noted Neurologic: Neuro exam is unremarkable, patient unconscious - Constitutional Vitals: Temp Pulse Resp BP Pulse Ox 98.9 F 87 26 H 128/51 100 09/05/20 08:00 09/05/20 11:53 09/05/20 11:53 09/05/20 11:53 09/05/20 11:53 General appearance: Present: no acute distress, other (Unresponsive, on the vent) HEART Score - HEART Score Troponin: Troponin T 0.085 ng/mL (0.00-0.029) H 08/30/20 00:15 Results - Labs CBC & Chem 7: 09/03/20 04:12 09/03/20 04:12 Labs: Laboratory Last Values WBC 8.7 K/mm3 (4.5-11.0) 09/03/20 04:12 RBC 2.35 M/mm3 (3.65-5.03) L 09/03/20 04:12 Hgb 8.3 gm/dl (10.1-14.3) L 09/03/20 04:12 Hct 25.1 % (30.3-42.9) L 09/03/20 04:12 MCV 107 fl (79-97) H 09/03/20 04:12 MCH 35 pg (28-32) H 09/03/20 04:12 MCHC 33 % (30-34) 09/03/20 04:12 RDW 18.5 % (13.2-15.2) H 09/03/20 04:12 Plt Count 87 K/mm3 (140-440) L 09/03/20 04:12 Lymph % (Auto) 6.9 % (13.4-35.0) L 08/31/20 05:45 Winn % (Auto) 4.5 % (0.0-7.3) 08/31/20 05:45 Eos % (Auto) 0.0 % (0.0-4.3) 08/31/20 05:45 Baso % (Auto) 0.8 % (0.0-1.8) 08/31/20 05:45 Lymph # (Auto) 0.9 K/mm3 (1.2-5.4) L 08/31/20 05:45 Winn # (Auto) 0.6 K/mm3 (0.0-0.8) 08/31/20 05:45 Eos # (Auto) 0.0 K/mm3 (0.0-0.4) 08/31/20 05:45 Baso # (Auto) 0.1 K/mm3 (0.0-0.1) 08/31/20 05:45 Add Manual Diff Complete 08/30/20 00:15 Total Counted 100 08/30/20 00:15 Seg Neutrophils % 87.8 % (40.0-70.0) H 08/31/20 05:45 Seg Neuts % (Manual) 57.0 % (40.0-70.0) 08/30/20 00:15 Band Neutrophils % 1.0 % 08/30/20 00:15 Lymphocytes % (Manual) 34.0 % (13.4-35.0) 08/30/20 00:15 Monocytes % (Manual) 5.0 % (0.0-7.3) 08/30/20 00:15 Eosinophils % (Manual) 3.0 % (0.0-4.3) 08/30/20 00:15 Nucleated RBC % 1.0 % (0.0-0.9) H 08/30/20 00:15 Seg Neutrophils # 11.5 K/mm3 (1.8-7.7) H 08/31/20 05:45 Seg Neutrophils # Man 5.6 K/mm3 (1.8-7.7) 08/30/20 00:15 Band Neutrophils # 0.1 K/mm3 08/30/20 00:15 Lymphocytes # (Manual) 3.3 K/mm3 (1.2-5.4) 08/30/20 00:15 Abs React Lymphs (Man) 0.0 K/mm3 08/30/20 00:15 Monocytes # (Manual) 0.5 K/mm3 (0.0-0.8) 08/30/20 00:15 Eosinophils # (Manual) 0.3 K/mm3 (0.0-0.4) 08/30/20 00:15 Basophils # (Manual) 0.0 K/mm3 (0.0-0.1) 08/30/20 00:15 Metamyelocytes # 0.0 K/mm3 08/30/20 00:15 Myelocytes # 0.0 K/mm3 08/30/20 00:15 Promyelocytes # 0.0 K/mm3 08/30/20 00:15 Blast Cells # 0.0 K/mm3 08/30/20 00:15 WBC Morphology Not Reportable 08/30/20 00:15 Hypersegmented Neuts Not Reportable 08/30/20 00:15 Hyposegmented Neuts Not Reportable 08/30/20 00:15 Hypogranular Neuts Not Reportable 08/30/20 00:15 Smudge Cells Not Reportable 08/30/20 00:15 Toxic Granulation Not Reportable 08/30/20 00:15 Toxic Vacuolation Not Reportable 08/30/20 00:15 Dohle Bodies Not Reportable 08/30/20 00:15 Pelger-Huet Anomaly Not Reportable 08/30/20 00:15 Lolita Rods Not Reportable 08/30/20 00:15 Platelet Estimate Consistent w auto 08/30/20 00:15 Clumped Platelets Not Reportable 08/30/20 00:15 Plt Clumps, EDTA Not Reportable 08/30/20 00:15 Large Platelets Not Reportable 08/30/20 00:15 Giant Platelets Not Reportable 08/30/20 00:15 Platelet Satelliting Not Reportable 08/30/20 00:15 Plt Morphology Comment Not Reportable 08/30/20 00:15 RBC Morphology Not Reportable 08/30/20 00:15 Dimorphic RBCs Not Reportable 08/30/20 00:15 Polychromasia Not Reportable 08/30/20 00:15 Hypochromasia Not Reportable 08/30/20 00:15 Poikilocytosis Not Reportable 08/30/20 00:15 Anisocytosis 1+ 06/14/21 00:15 Microcytosis Not Reportable 08/30/20 00:15 Macrocytosis Not Reportable 08/30/20 00:15 Spherocytes Not Reportable 08/30/20 00:15 Pappenheimer Bodies Not Reportable 08/30/20 00:15 Sickle Cells Not Reportable 08/30/20 00:15 Target Cells Not Reportable 08/30/20 00:15 Tear Drop Cells Not Reportable 08/30/20 00:15 Ovalocytes Not Reportable 08/30/20 00:15 Helmet Cells Not Reportable 08/30/20 00:15 [place] Bodies Not Reportable 08/30/20 00:15 [place] Rings Not Reportable 08/30/20 00:15 [place] Cells Not Reportable 08/30/20 00:15 Bite Cells Not Reportable 08/30/20 00:15 Crenated Cell Not Reportable 08/30/20 00:15 Elliptocytes Not Reportable 08/30/20 00:15 Acanthocytes (Spur) Not Reportable 08/30/20 00:15 Rouleaux Not Reportable 08/30/20 00:15 Hemoglobin C Crystals Not Reportable 08/30/20 00:15 Schistocytes Not Reportable 08/30/20 00:15 Malaria parasites Not Reportable 08/30/20 00:15 Maurice Bodies Not Reportable 08/30/20 00:15 Hem Pathologist Commnt No 08/30/20 00:15 PT 12.8 Sec. (12.2-14.9) 08/31/20 05:45 INR 0.90 (0.87-1.13) 08/31/20 05:45 D-Dimer > 32463 ng/mlDDU (0-234) H 08/30/20 03:10 ABG pH 7.506 pH Units (7.350-7.450) H 09/02/20 03:40 POC ABG pCO2 35.9 mmHg (32.0-48.0) 09/01/20 03:13 ABG pCO2 38.0 mm Hg 09/02/20 03:40 POC ABG pO2 89.7 mmHg (83-108) 09/01/20 03:13 ABG pO2 83.1 mm Hg (80.0-90.0) 09/02/20 03:40 POC ABG HCO3 28.6 09/01/20 03:13 ABG HCO3 29.4 mmol/L (20.0-26.0) H 09/02/20 03:40 ABG O2 Saturation 97.2 % (95.0-99.0) 09/02/20 03:40 ABG O2 Content 11.2 (0.0-44) 09/02/20 03:40 POC ABG Base Excess 5.5 09/01/20 03:13 ABG Base Excess 5.9 mmol/L (-2.0-3.0) H 09/02/20 03:40 ABG Hemoglobin 8.3 gm/dl (12.0-16.0) L 09/02/20 03:40 ABG Oxyhemoglobin 95.9 (94-98) 09/01/20 03:13 ABG Carboxyhemoglobin 1.9 % (0.0-5.0) 09/02/20 03:40 ABG Methemoglobin 0.5 % (0.0-1.5) 09/02/20 03:40 ABG Sodium 134.7 mmol/L (136.0-145.0) L 09/01/20 03:13 ABG Potassium 3.7 mmol/L (3.40-4.50) 09/01/20 03:13 ABG Chloride 94.0 mmol/L (98-107) L 09/01/20 03:13 ABG Glucose 441 mg/dL (65-95) H 09/01/20 03:13 Oxyhemoglobin 94.8 % (95.0-99.0) L 09/02/20 03:40 Carboxyhemoglobin 1.2 (0.5-1.5) 09/01/20 03:13 FiO2 30 % 09/02/20 03:40 FiO2 % 30.0 09/01/20 03:13 Sodium 136 mmol/L (137-145) L 09/03/20 04:12 Potassium 4.1 mmol/L (3.6-5.0) 09/03/20 04:12 Chloride 90.3 mmol/L (98-107) L 09/03/20 04:12 Carbon Dioxide 29 mmol/L (22-30) 09/03/20 04:12 Anion Gap 21 mmol/L 09/03/20 04:12 BUN 79 mg/dL (7-17) H 09/03/20 04:12 Creatinine 8.1 mg/dL (0.6-1.2) H 09/03/20 04:12 Estimated GFR 6 ml/min 09/03/20 04:12 BUN/Creatinine Ratio 10 % 09/03/20 04:12 Glucose 223 mg/dL (65-100) H 09/03/20 04:12 POC Glucose 199 mg/dL (70-105) H 09/05/20 09:25 Calcium 7.1 mg/dL (8.4-10.2) L 09/03/20 04:12 Phosphorus 11.50 mg/dL (2.5-4.5) H 08/30/20 00:15 Magnesium 3.80 mg/dL (1.7-2.3) H 08/30/20 00:15 Ferritin 830.0 ng/mL (10.0-200.0) H 08/30/20 03:10 Total Bilirubin 0.40 mg/dL (0.1-1.2) 08/30/20 15:03 AST 68 units/L (5-40) H 08/30/20 15:03 ALT 41 units/L (7-56) 08/30/20 15:03 Alkaline Phosphatase 364 units/L (35-129) H 08/30/20 15:03 Lactate Dehydrogenase 400 units/L (91-180) H 08/30/20 03:10 Troponin T 0.085 ng/mL (0.00-0.029) H 08/30/20 00:15 C-Reactive Protein 0.20 mg/dL (0.00-1.30) 08/30/20 03:10 Total Protein 6.4 g/dL (6.3-8.2) 08/30/20 15:03 Albumin 3.7 g/dL (3.9-5) L 08/30/20 15:03 Albumin/Globulin Ratio 1.4 % 08/30/20 15:03 Triglycerides 61 mg/dL (2-149) 08/30/20 00:15 Cholesterol 150 mg/dL (50-199) 08/30/20 00:15 LDL Cholesterol Direct 71 mg/dL (50-130) 08/30/20 00:15 HDL Cholesterol 66 mg/dL (40-59) H 08/30/20 00:15 Cholesterol/HDL Ratio 2.27 % 08/30/20 00:15 Procalcitonin 4.16 ng/mL (<0.15) 08/30/20 03:10 Arterial Blood Glucose 441 mg/dL (65-95) H 09/01/20 03:13 Arterial Blood Ionized Calcium 3.8 mg/dL (4.6-5.3) L 09/01/20 03:13 Coronavirus (PCR) Negative (Negative) 08/30/20 Unknown Hepatitis A IgM Ab Non-reactive (NonReactive) 08/30/20 07:35 Hep Bs Antigen Non-reactive (Negative) 08/30/20 07:35 Hep B Core IgM Ab Non-reactive (NonReactive) 08/30/20 07:35 Hepatitis C Antibody Non-reactive (NonReactive) 08/30/20 07:35 Microbiology: Microbiology 08/30/20 18:15 Peripheral/Venous Blood Culture - Final NO GROWTH AFTER 5 DAYS 08/30/20 18:15 Peripheral/Venous Blood Culture - Final NO GROWTH AFTER 5 DAYS Johns/IV: Voiding Method Incontinent Active Medications - Current Medications Current Medications: Generic Name Dose Route Start Last Admin Trade Name Freq PRN Reason Stop Dose Admin Acetaminophen 650 mg 09/01/20 00:27 09/04/20 04:34 Acetaminophen 325 Mg/10.15 Ml Oral Liqd Unit Dose FEEDTUBE 650 mg Q6H PRN Administration Non Cardiac Pain or Temp>100.5 Amlodipine Besylate 10 mg 09/03/20 11:00 09/05/20 09:33 Amlodipine 10 Mg Tab PO 10 mg QDAY ANIYAH Administration Lipase/Protease/Amylase 1 each 08/30/20 14:27 Lipase 10,500/Protease 25,000/Amylase 43,750 (Units) Dr Duran FEEDTUBE PRN PRN For Clogged Feeding Tube Dextrose 50 ml 08/30/20 19:48 Dextrose 50% In Water (25gm) 50 Ml Syringe IV Q30MIN PRN Hypoglycemia Protocol Famotidine 20 mg 09/02/20 10:00 09/05/20 09:33 Famotidine 20 Mg Tab PO 20 mg DAILY ANIYAH Administration Fentanyl 50 mcg 08/30/20 14:05 Fentanyl 100 Mcg/2 Ml Inj IV Q10MIN PRN ANALGESIA Heparin Sodium (Porcine) 5,000 unit 08/30/20 06:00 09/05/20 06:04 Heparin 5,000 Unit/1 Ml Vial SUB-Q 5,000 unit Q8HR ANIYAH Administration Hydralazine HCl 10 mg 08/31/20 18:14 09/04/20 04:34 Hydralazine 20 Mg/1 Ml Inj IV 10 mg Q4HR PRN Administration Hypertension Hydrophilic Ointment 1 applic 08/30/20 14:05 Lip Therapy Vaseline TP Q2HR PRN Dry Lips Sodium Chloride 100 mls @ 999 mls/hr 08/30/20 09:00 Nacl 0.9% IV ARMIDA PRN Hypotension Propofol 1,000 mg in 100 mls @ 2.381 mls/hr 08/30/20 13:00 08/31/20 16:39 Diprivan 10 Mg/Ml IV 0 mcg/kg/min TITR ANIYAH 0 mls/hr Titration Protocol 5 MCG/KG/MIN Meropenem 500 mg in 50 mls @ 50 mls/hr 08/30/20 14:00 09/04/20 13:42 Merrem/Ns 500 Mg/50 Ml IV 09/06/20 14:59 50 mls/hr Q24H ANIYAH Administration Fentanyl Citrate 2,000 mcg in 100 mls @ 3.969 mls/hr 08/30/20 15:00 09/01/20 15:41 Fentanyl Drip Premix IV 0 mcg/kg/hr TITR ANIYAH 0 mls/hr Titration Protocol 1 MCG/KG/HR Insulin Glargine 30 units 09/03/20 10:00 09/05/20 09:33 Insulin Glargine 100 Units/Ml SUB-Q 30 units DAILY ANIYAH Administration Insulin Human Lispro 5 unit 09/04/20 08:00 09/05/20 08:26 Insulin Lispro 100 Unit/Ml SUB-Q Not Given TID ANIYAH Insulin Human Regular 0 units 09/01/20 10:00 09/05/20 09:40 Insulin Regular, Human 100 Units/1 Ml SUB-Q 3 units Q4HR ANIYAH Administration Protocol Levetiracetam 750 mg 09/04/20 22:00 09/05/20 09:33 Levetiracetam 500 Mg/5 Ml Oral Liqd PO 750 mg BID ANIYAH Administration Magnesium Hydroxide 30 ml 08/30/20 04:41 Magnesium Hydroxide (Mom) Oral Liqd Udc PO Q4H PRN Constipation Metoprolol Tartrate 50 mg 09/03/20 11:00 09/05/20 09:34 Metoprolol Tartrate 50 Mg Tab PO 50 mg BID ANIYAH Administration Multi-Ingred Cream/Lotion/Oil/Oint 1 applic 08/30/20 14:05 08/31/20 01:17 Mineral Oil/Petrolatum, White Ophth Oint 3.5 Gm OU 1 applic Q4HR PRN Administration Dry Eye(s) Nitroglycerin 0.4 mg 09/04/20 06:00 09/05/20 05:56 Nitroglycerin 0.4 Mg Patch 24hr TD Not Given QDAY@0600 ANIYAH Ondansetron HCl 4 mg 08/30/20 04:41 Ondansetron 4 Mg/2 Ml Inj IV Q8H PRN Nausea And Vomiting Senna/Docusate Sodium 1 tab 08/30/20 22:00 09/05/20 09:34 Sennosides/Docusate Sodium 8.6/50 Mg Tab FEEDTUBE Not Given BID ANIYAH Simple Syrup 15 ml 08/30/20 14:27 Simple Syrup 15 Ml FEEDTUBE PRN PRN Hypoglycemia Simple Syrup 30 ml 08/30/20 14:27 Simple Syrup 15 Ml FEEDTUBE PRN PRN Hypoglycemia Sodium Bicarbonate 325 mg 08/30/20 14:27 09/05/20 08:26 Sodium Bicarbonate 325 Mg Tab FEEDTUBE 325 mg PRN PRN Administration For Clogged Feeding Tube Sodium Chloride 10 ml 08/30/20 10:00 09/05/20 09:34 Sodium Chloride 0.9% 10 Ml Flush Syringe IV 10 ml BID ANIYAH Administration Sodium Chloride 10 ml 08/30/20 04:41 Sodium Chloride 0.9% 10 Ml Flush Syringe IV PRN PRN LINE FLUSH Nutrition/Malnutrition Assess - Dietary Evaluation Nutrition/Malnutrition Findings: Nutrition Notes Start: 08/30/20 07:40 Freq: Status: Active Protocol: Document 09/03/20 10:52 CW (Rec: 09/03/20 10:56 CW [id number]) Nutrition Notes Initial or Follow up Reassessment Current Diagnosis CKD (stage V CKD),Diabetes, Hypertension Other Pertinent Diagnosis pneu, cardiac arrest, on HD, COVID PUI Current Diet Nepro 1.8 at 35 ml/hr Labs/Tests Na 136 BUN 79 Cr 8.1 BG 223 Pertinent Medications Humulin Nitroglycerin in dextrose at 13.5 ml/hr Merrem Height 5 ft 3 in Weight 62.9 kg [place] Body Weight (kg) 52.27 BMI 24.5 Weight Status Appropriate Subjective/Other Information FU for TF tolerance. Pt received HD today. TF running at goal. NOK considering hospice placement. No reports of TF intolerance. Loose stool likely related to ABTx. RD conducted reqwt d/t wt anomaly . Percent of energy/protein needs met: 100%/85% Burn Absent Trauma Absent GI Symptoms Diarrhea Current % PO Negligible Minimum of two criteria No physical signs of malnutrition #1 Nutrition Diagnosis Inadequate oral intake Diagnosis Progress(for reassessment Continues documentation) Is patient on ventilator? Yes Is Patient Ambulatory and/or Out of Bed No REE-([facility]-confined to bed) 1371.336 Calculation Used for Recommendations [facility] Additional Notes Protein: (1.2-2g/kg) 80-133g Fluid: 1 - 1.5 L Nutrition Intervention Change Diet Order: Continue Nutrition Support: Nepro 1.8 at 35 ml/hr Flush 150 ml q4h or per MD Kcal 1,512 Protein (gm) 68 Carbohydrates (gm) 135 Fat (gm) 81 Fluid (mL) 611 Goal #1 Meet at least 75% of protein and energy needs via TF Anticipated Discharge Needs: Unable to determine at this time Follow-Up By: 09/06/20 Additional Comments F/U for TF tolerance, wt
[2020-09-05] MEDS: MEROPENEM/NS 500 MG/50 ML 500 MG/50 ML BAG IV SCH (14:09)
--- NOTE | 2020-09-06 00:49 | XRay Report ---
ABDOMEN 1 VIEW 09/05/2020 11:42 PM INDICATION / CLINICAL INFORMATION: NGT placement. COMPARISON: None available. FINDINGS: NG tube is within the fundus of the stomach Signer Name: Sathya Cortes MD Signed: 09/06/2020 12:45 AM Workstation Name: [id number]
[2020-09-06] MEDS: INSULIN REGULAR, HUMAN 100 UNITS/1 ML SUB-Q SCH ×6 (02:00→22:25)
[2020-09-06] MEDS: HEPARIN 5,000 UNIT/1 ML VIAL SUB-Q SCH ×3 (06:15→22:23)
[2020-09-06] MEDS: NITROGLYCERIN 0.4 MG PATCH 24HR TD SCH (06:15)
--- NOTE | 2020-09-06 07:37 | Progress Note ---
Assessment and Plan - Patient Problems (1) Anoxic encephalopathy Current Visit: Yes Status: Acute Plan to address problem: In the setting of cardiopulmonary arrest. No changes in her neurological status, which remains poor at this time. Pending hospice evaluation/transition. Per primary notes, it seems that she is likely to be transitioned to hospice today. (2) Cardiac arrest Current Visit: Yes Status: Acute Plan to address problem: s/p cardiac arrest suffered at home, with unfortunately severe anoxic encephalopathy/brain injury suffered without improvement in neurologic status. She is off all pressors and sedation at this time. Cardiology input reviewed and appreciated. Overall prognosis remains poor. (3) End-stage renal disease on hemodialysis Current Visit: Yes Status: Chronic Plan to address problem: Patient was placed on MWF HD schedule. At this point, given her overall poor prognosis, and notes from primary indicating likely transition to hospice, will hold HD at this time. (4) Hyperkalemia Current Visit: Yes Status: Acute Plan to address problem: Corrected with HD (5) Multifocal pneumonia Current Visit: Yes Status: Acute Plan to address problem: Please ensure that antibiotics are dosed appropriately for her decreased renal function. (6) Pulmonary edema Current Visit: Yes Status: Acute Plan to address problem: Being corrected with UF during dialysis. No acute indications for HD today. Will monitor closely. She remains intubated, without any acute changes in vent settings at this time. Subjective Date of service: 09/06/20 Principal diagnosis: Cardiac arrest; Ac. hypoxemic resp failure; PNA; ESRD; NSTEMI; Hyperkalemia Interval history: No acute changes, remains essentially unresponsive with poor neurological function. Per primary notes, most likely transition to hospice today. Objective - Vital Signs Vital signs: Vital Signs - 12hr 09/05/20 09/05/20 09/05/20 19:44 19:45 20:00 Temperature 99.5 F Pulse Rate 90 86 91 H Pulse Rate [ 91 H From Monitor] Respiratory 20 21 Rate Blood Pressure 160/46 160/46 166/47 O2 Sat by Pulse 99 99 99 Oximetry 09/05/20 09/05/20 09/05/20 20:05 20:15 20:17 Temperature Pulse Rate 89 91 H 88 Pulse Rate [ From Monitor] Respiratory 18 20 23 Rate Blood Pressure 166/47 166/47 166/47 O2 Sat by Pulse 99 99 99 Oximetry 09/05/20 09/05/2009/05/21 20:30 20:45 21:00 Temperature Pulse Rate 89 87 86 Pulse Rate [ From Monitor] Respiratory 18 22 Rate Blood Pressure 168/49 168/49 164/53 O2 Sat by Pulse 98 98 99 Oximetry 09/05/20 09/05/20 09/05/20 21:15 21:31 21:41 Temperature Pulse Rate 89 92 H 88 Pulse Rate [ From Monitor] Respiratory 19 20 Rate Blood Pressure 164/53 156/54 156/54 O2 Sat by Pulse 100 100 Oximetry 09/05/20 09/05/20 09/05/20 21:45 22:00 22:15 Temperature Pulse Rate 87 88 91 H Pulse Rate [ From Monitor] Respiratory 23 24 24 Rate Blood Pressure 156/54 158/45 158/45 O2 Sat by Pulse 98 98 98 Oximetry 09/05/20 09/05/20 09/05/20 22:30 22:45 23:01 Temperature Pulse Rate 88 90 89 Pulse Rate [ From Monitor] Respiratory 18 24 25 H Rate Blood Pressure 149/51 149/51 158/53 O2 Sat by Pulse 98 98 98 Oximetry 09/05/20 09/05/20 09/05/20 23:15 23:16 23:30 Temperature Pulse Rate 91 H 88 90 Pulse Rate [ From Monitor] Respiratory 24 Rate Blood Pressure 158/53 158/53 149/53 O2 Sat by Pulse 97 97 96 Oximetry 09/05/20 09/06/20 09/06/20 23:45 00:00 00:15 Temperature 98.9 F Pulse Rate 89 89 90 Pulse Rate [ 89 From Monitor] Respiratory 25 H 24 25 H Rate Blood Pressure 158/53 171/57 171/57 O2 Sat by Pulse 96 96 96 Oximetry 09/06/20 09/06/20 09/06/20 00:30 00:45 01:00 Temperature Pulse Rate 88 88 87 Pulse Rate [ From Monitor] Respiratory 19 Rate Blood Pressure 170/55 170/55 176/53 O2 Sat by Pulse 97 98 99 Oximetry 09/06/20 09/06/20 09/06/20 01:15 01:30 01:45 Temperature Pulse Rate 86 86 87 Pulse Rate [ From Monitor] Respiratory 21 Rate Blood Pressure 176/53 158/53 158/53 O2 Sat by Pulse 99 99 99 Oximetry 09/06/20 09/06/20 09/06/20 02:00 02:15 02:30 Temperature Pulse Rate 88 85 79 Pulse Rate [ From Monitor] Respiratory 28 H 26 H 20 Rate Blood Pressure 165/58 165/58 151/57 O2 Sat by Pulse 90 90 91 Oximetry 09/06/20 09/06/20 09/06/20 02:45 03:00 03:13 Temperature Pulse Rate 75 74 74 Pulse Rate [ From Monitor] Respiratory 21 25 H Rate Blood Pressure 165/58 145/54 145/55 O2 Sat by Pulse 90 91 96 Oximetry 09/06/20 09/06/20 09/06/20 03:15 03:30 03:36 Temperature 98.6 F Pulse Rate 74 74 Pulse Rate [ From Monitor] Respiratory 24 22 Rate Blood Pressure 145/54 149/52 O2 Sat by Pulse 92 92 Oximetry 09/06/20 09/06/20 09/06/20 03:45 04:00 04:15 Temperature Pulse Rate 75 75 76 Pulse Rate [ 75 From Monitor] Respiratory 21 26 H 24 Rate Blood Pressure 145/54 155/54 155/54 O2 Sat by Pulse 93 93 93 Oximetry 09/06/20 09/06/20 09/06/20 04:30 04:45 05:00 Temperature Pulse Rate 76 77 77 Pulse Rate [ From Monitor] Respiratory 25 H 20 22 Rate Blood Pressure 147/52 147/52 151/51 O2 Sat by Pulse 93 94 92 Oximetry 09/06/20 09/06/20 09/06/20 05:15 05:30 05:45 Temperature Pulse Rate 79 80 79 Pulse Rate [ From Monitor] Respiratory 25 H 24 20 Rate Blood Pressure 151/51 168/57 168/57 O2 Sat by Pulse 92 92 97 Oximetry 09/06/20 09/06/20 06:00 06:15 Temperature Pulse Rate 80 81 Pulse Rate [ From Monitor] Respiratory 22 22 Rate Blood Pressure 153/52 153/52 O2 Sat by Pulse 100 100 Oximetry - General Appearance General appearance: chronically ill, intubated, frail EENT: ATNC Neck: no JVD Respiratory: Present: Decreased Breath Sounds Cardiology: regular Gastrointestinal: normal Musculoskeletal: deferred - Lab 09/03/20 04:12 09/03/20 04:12 Most recent lab results ABG pH 7.506 pH Units (7.350-7.450) H 09/02/20 03:40 ABG pCO2 38.0 mm Hg 09/02/20 03:40 ABG pO2 83.1 mm Hg (80.0-90.0) 09/02/20 03:40 ABG HCO3 29.4 mmol/L (20.0-26.0) H 09/02/20 03:40 ABG O2 Saturation 97.2 % (95.0-99.0) 09/02/20 03:40 Calcium 7.1 mg/dL (8.4-10.2) L 09/03/20 04:12 Phosphorus 11.50 mg/dL (2.5-4.5) H 08/30/20 00:15 Magnesium 3.80 mg/dL (1.7-2.3) H 08/30/20 00:15 - Allied health notes Allied health notes reviewed: nursing Medications & Allergies - Medications Allergies/Adverse Reactions: Allergies No Known Allergies Allergy (Verified 08/30/20 22:43) Home Medications: Home Medications Medication Instructions Recorded Confirmed Last Taken Type Acyclovir [Zovirax Tab] 400 mg PO BID 08/30/20 08/30/20 Unknown History Amlodipine Besylate 10 mg PO DAILY 08/30/20 08/30/20 Unknown History Furosemide [Lasix] 40 mg PO DAILY 08/30/20 08/30/20 Unknown History Gabapentin [Neurontin] 600 mg PO BID 08/30/20 08/30/20 Unknown History Imdur ER 30 mg PO DAILY 08/30/20 08/30/20 Unknown History Losartan Potassium 50 mg PO BID 08/30/20 08/30/20 Unknown History Losartan/Hydrochlorothiazide 1 each PO DAILY 08/30/20 08/30/20 Unknown History [Losartan-Hctz 100-25 mg Tab] Metoprolol Tartrate 25 mg PO BID 08/30/20 08/30/20 Unknown History Mirtazapine [Remeron] 30 mg PO HS 08/30/20 08/30/20 Unknown History Sevelamer Carbonate [Renvela] 800 mg PO TIDWM 08/30/20 08/30/20 Unknown History Vit B Complx C/Folic Acid/Zinc 0.8 mg PO DAILY 08/30/20 08/30/20 Unknown History [Dialyvite 800-Zinc 15 Tab] Zolpidem Tartrate [Edluar SUBL] 5 mg PO QHS PRN 08/30/20 08/30/20 Unknown History calcitrioL 0.5 mcg PO DAILY 08/30/20 08/30/20 Unknown History Active Medications: Generic Name Dose Route Start Last Admin Trade Name Freq PRN Reason Stop Dose Admin Acetaminophen 650 mg 09/01/20 00:27 09/04/20 04:34 Acetaminophen 325 Mg/10.15 Ml Oral Liqd Unit Dose FEEDTUBE 650 mg Q6H PRN Administration Non Cardiac Pain or Temp>100.5 Amlodipine Besylate 10 mg 09/03/20 11:00 09/05/20 09:33 Amlodipine 10 Mg Tab PO 10 mg QDAY ANIYAH Administration Lipase/Protease/Amylase 1 each 08/30/20 14:27 Lipase 10,500/Protease 25,000/Amylase 43,750 (Units) Dr Duran FEEDTUBE PRN PRN For Clogged Feeding Tube Dextrose 50 ml 08/30/20 19:48 Dextrose 50% In Water (25gm) 50 Ml Syringe IV Q30MIN PRN Hypoglycemia Protocol Famotidine 20 mg 09/02/20 10:00 09/05/20 09:33 Famotidine 20 Mg Tab PO 20 mg DAILY ANIYAH Administration Fentanyl 50 mcg 08/30/20 14:05 Fentanyl 100 Mcg/2 Ml Inj IV Q10MIN PRN ANALGESIA Heparin Sodium (Porcine) 5,000 unit 08/30/20 06:00 09/06/20 06:15 Heparin 5,000 Unit/1 Ml Vial SUB-Q 5,000 unit Q8HR ANIYAH Administration Hydralazine HCl 10 mg 08/31/20 18:14 09/04/20 04:34 Hydralazine 20 Mg/1 Ml Inj IV 10 mg Q4HR PRN Administration Hypertension Hydrophilic Ointment 1 applic 08/30/20 14:05 Lip Therapy Vaseline TP Q2HR PRN Dry Lips Sodium Chloride 100 mls @ 999 mls/hr 08/30/20 09:00 Nacl 0.9% IV ARMIDA PRN Hypotension Propofol 1,000 mg in 100 mls @ 2.381 mls/hr 08/30/20 13:00 08/31/20 16:39 Diprivan 10 Mg/Ml IV 0 mcg/kg/min TITR ANIYAH 0 mls/hr Titration Protocol 5 MCG/KG/MIN Meropenem 500 mg in 50 mls @ 50 mls/hr 08/30/20 14:00 09/05/20 15:10 Merrem/Ns 500 Mg/50 Ml IV 09/06/20 14:59 Infused Q24H [facility] Infusion Fentanyl Citrate 2,000 mcg in 100 mls @ 3.969 mls/hr 08/30/20 15:00 09/01/20 15:41 Fentanyl Drip Premix IV 0 mcg/kg/hr TITR ANIYAH 0 mls/hr Titration Protocol 1 MCG/KG/HR Insulin Glargine 30 units 09/03/20 10:00 09/05/20 09:33 Insulin Glargine 100 Units/Ml SUB-Q 30 units DAILY [facility] Administration Insulin Human Lispro 5 unit 09/04/20 08:00 09/05/20 20:23 Insulin Lispro 100 Unit/Ml SUB-Q Not Given TID [facility] Insulin Human Regular 0 units 09/01/20 10:00 09/06/20 06:11 Insulin Regular, Human 100 Units/1 Ml SUB-Q 3 units Q4HR ANIYAH Administration Protocol Levetiracetam 750 mg 09/04/20 22:00 09/05/20 21:41 Levetiracetam 500 Mg/5 Ml Oral Liqd PO 750 mg BID [facility] Administration Magnesium Hydroxide 30 ml 08/30/20 04:41 Magnesium Hydroxide (Mom) Oral Liqd Udc PO Q4H PRN Constipation Metoprolol Tartrate 50 mg 09/03/20 11:00 09/05/20 21:41 Metoprolol Tartrate 50 Mg Tab PO 50 mg BID [facility] Administration Multi-Ingred Cream/Lotion/Oil/Oint 1 applic 08/30/20 14:05 08/31/20 01:17 Mineral Oil/Petrolatum, White Ophth Oint 3.5 Gm OU 1 applic Q4HR PRN Administration Dry Eye(s) Nitroglycerin 0.4 mg 09/04/20 06:00 09/06/20 06:15 Nitroglycerin 0.4 Mg Patch 24hr TD 0.4 mg QDAY@0600 [facility] Administration Ondansetron HCl 4 mg 08/30/20 04:41 Ondansetron 4 Mg/2 Ml Inj IV Q8H PRN Nausea And Vomiting Senna/Docusate Sodium 1 tab 08/30/20 22:00 09/05/20 21:42 Sennosides/Docusate Sodium 8.6/50 Mg Tab FEEDTUBE 1 tab BID ANIYAH Administration Simple Syrup 15 ml 08/30/20 14:27 Simple Syrup 15 Ml FEEDTUBE PRN PRN Hypoglycemia Simple Syrup 30 ml 08/30/20 14:27 Simple Syrup 15 Ml FEEDTUBE PRN PRN Hypoglycemia Sodium Bicarbonate 325 mg 08/30/20 14:27 09/05/20 08:26 Sodium Bicarbonate 325 Mg Tab FEEDTUBE 325 mg PRN PRN Administration For Clogged Feeding Tube Sodium Chloride 10 ml 08/30/20 10:00 09/05/20 21:42 Sodium Chloride 0.9% 10 Ml Flush Syringe IV 10 ml BID ANIYAH Administration Sodium Chloride 10 ml 08/30/20 04:41 Sodium Chloride 0.9% 10 Ml Flush Syringe IV PRN PRN LINE FLUSH
[2020-09-06] MEDS: METOPROLOL TARTRATE 50 MG TAB PO SCH ×2 (09:34→22:24)
[2020-09-06] MEDS: levETIRAcetam 500 MG/5 ML ORAL LIQD PO SCH ×2 (09:34→22:23)
[2020-09-06] MEDS: FAMOTIDINE 20 MG TAB PO SCH (09:34)
[2020-09-06] MEDS: SENNOSIDES/DOCUSATE SODIUM 8.6/50 MG TAB FEEDTUBE SCH ×2 (09:34→22:24)
[2020-09-06] MEDS: INSULIN GLARGINE 100 UNITS/ML SUB-Q SCH (09:38)
[2020-09-06] MEDS: amLODIPine 10 MG TAB PO SCH (09:39)
--- NOTE | 2020-09-06 10:16 | XRay Report ---
XR chest 1V ap INDICATION / CLINICAL INFORMATION: resp failure on MVS. COMPARISON: September 02, 2020 FINDINGS: SUPPORT DEVICES: Unchanged. HEART / MEDIASTINUM: Unchanged. LUNGS / PLEURA: Pulmonary vascular congestion is unchanged. Lung parenchyma is not significantly wang ged. No pneumothorax. ADDITIONAL FINDINGS: No significant additional findings. IMPRESSION: 1. No acute findings. No significant change. Signer Name: Yash Dubose MD Signed: 09/06/2020 10:12 AM Workstation Name: [id number]
[2020-09-06] MEDS: INSULIN LISPRO 100 UNIT/ML SUB-Q SCH ×3 (10:29→20:18)
--- NOTE | 2020-09-06 10:33 | Progress Note ---
<NEVAEH NUNEZ A - Last Filed: 09/06/20 16:15> Assessment and Plan Assessment and plan: This is 65-year-old female with DM, HTN, HLD, ESRD on HD MWF, multiple myeloma s/p chemotherapy and stem cell transplant and current tobacco abuse who was admitted s/p cardiac arrest with anoxic encephalopathy, hypertensive emergency, multifocal pneumonia and has a COVID-19 PUI PROBLEM LIST COVID-19, ruled out S/p cardiac arrest Acute hypoxic respiratory failure Diffuse anoxic brain injury as evidenced by MRI Pericardial effusion Severe cardiomegaly Anoxic encephalopathy Hyperkalemia Hyperglycemia Leukocytosis Transaminitis Hypertension Hyperlipidemia ESRD on HD Multiple myeloma Current tobacco abuse Questionable seizure activity Interval history: This is 65-year-old female with diabetes mellitus, hypertension, hyperlipidemia, ESRD on HD MWF via left chest permacath, multiple myeloma s/p chemotherapy and stem cell transplant with right chest port, immature right upper extremity aVF and current tobacco abuse who presented to the emergency department on 08/30 s/p cardiac arrest after being found laying in driveway, unresponsive and in asystole by EMS after being called for shortness of breath. Patient was intubated by EMS and received 3 mg epinephrine, calcium and serum bicarbonate and ROSC was eventually achieved after 10 minutes of resuscitation. Recommend emergency department revealed hyperkalemia, CXR showed moderate enlargement of cardiac silhouette, diffuse bilateral mixed interstitial and airspace disease with considerations to pulmonary edema or multifocal infectious process. Patient was admitted to the hospitalist service s/p cardiac arrest with anoxic encephalopathy, ESRD on HD, hypertensive emergency, multifocal pneumonia and a and has a COVID-19 PUI. CCM, nephrology, neurology infectious disease and cardiology were consulted. 08/30: This morning neurology was consulted, patient noted to have leukocytosis, hyperkalemia, metabolic acidosis and hyperglycemia. Patient had hyperphosphatemia, hypomagnesemia also. Patient had hemodialysis today per nephrology. COVID-19 PCR negative. Patient was in ED holding and admitted to the ICU later during the day. Patient is sedated on fentanyl and propofol. At the time my examination she was assist-control, rate of 28, tidal and 450, 60 PEEP and FiO2 of 60%. 08/31: Patient received hemodialysis however she is hyperkalemia again which was treated with dextrose, insulin and Kionex. Patient received hemodialysis again today per nephrology. Patient continues with with meropenem until blood cultures per infectious disease. MRI brain and EEG pending, lactulose discontinued (which was started due to large stool burden). We will follow up on cultures and BMP. Patient also noted to be hyperglycemic and was started on long acting insulin. Family updated at bedside by nurse ela and Dr. Garces. 09/01: Patient was noted to be hypertensive yesterday evening and today so cardiology will start the patient on a nitroglycerin drip and IV metoprolol. CCM reduced rate. Patient received hemodialysis today and scheduled for MRI brain. Patient noted to be hyperkalemic and follow-up BMP shows a potassium of 4. Patient's MRI brain showed diffuse anoxic brain injury and Dr. Garces updated the family at bedside. 09/02: Patient had an MRI brain yesterday which showed global anoxic brain injury. At the time of my examination patient was on PCV CPAP with tidal volume 450, FiO2 of 30. Patient is hyperglycemic and insulin dosage increased. Family decision has not been made, Dr. Silva and / Dez updated family. Neurology has signed off 09/03: Patient continues to be hypoglycemic and long-acting insulin dosage increased. She is receiving hemodialysis today. Patient has a referral to inpatient hospice. No acute events reported overnight. CM speaking to family re hospice. Cardio changed BP medications to PO. CCM to discuss goals of care and rT to rest daily on AC at night/continue CPAP trials during the day. 09/04: Patient was noted to have possible seizure activity and was given 2 mg of Ativan by CCM. Patient was later hypotensive tensive and received a 250 mL normal saline bolus which was communicated to nephrology. Per nephrology will like to avoid excessive fluid boluses to prevent issues with fluid overload over the weekend. At the time of my exam patient was on assist control tidal line 450, rate of 12, PEEP of 6 and 25% FiO2. Patient noted to be hyper glycemic and long-acting insulin was changed. 09/05: Patient continues to be unresponsive, Keppra was added for possible seizure disorder yesterday. No family at the bedside, patient to go to hospice most likely on Sunday. 09/06 Family at bedside to visit with pt. NEURO- anoxic brain injury; AMS anoxic brain injury MRI and EEG suggestive of anoxic injur no pain to noxious stimuli cough/gag neurology has signed off PRN pain meds keppra scheduled no seizures noted today family at bedside- they are discussing hospice but unsure at this time; the family is looking for advanced directives and the estranged of the pt is coming to visit Sunday Full code for now- including CPR- discussed with family CV- hx htn SR no pressors tolerating BP meds without hypotension RESP- resp failure sp cardiac arrest vent [phone] not overbreathing vent on exam; on no sedatives or pain medications ABG in AM chest xray yesterday noted GI nap tolerating TF pepcid bowel reg- senna -ESRD on HD nephrology following HD per nephrology- M/W/F strict I/O trend electrolytes and replace as needed AM labs ordered HEME-nap no bleeding on exam VTE SQH ID-nap at this time covid neg trend WBC and temp curve afebrile today no antibiotics at this time- renée completed today last cultures 08/30 ENDO: hyperglycemia SSI avoid hypoglycemia PLAN Clarify hospice and code plan with family on Sunday Disposition Plan: hospice Total Time Spent with Patient (Minutes): 60 History Interval history: This is 65-year-old female with DM, HTN, HLD, ESRD on HD MWF, multiple myeloma s/p chemotherapy and stem cell transplant and current tobacco abuse who was admitted s/p cardiac arrest with anoxic encephalopathy, hypertensive emergency, multifocal pneumonia and has a COVID-19 PUI no acute events overnight Hospitalist Physical - Constitutional Vitals: Temp Pulse Resp BP Pulse Ox 98.2 F 71 18 118/44 100 09/06/20 08:33 09/06/20 10:30 09/06/20 10:30 09/06/20 10:30 09/06/20 10:30 General appearance: Present: no acute distress, other (Unresponsive, on the v ent) - Neck Neck: Present: supple, normal ROM - Respiratory Respiratory effort: normal - Cardiovascular Rhythm: regular Heart Sounds: Present: S1 & S2 Peripheral Pulses: within normal limits - Abdominal General gastrointestinal: soft, non-tender - Integumentary Integumentary: Present: clear, warm, dry - Psychiatric Psychiatric: other - Allied Health Allied health notes reviewed: nursing, social work, case management HEART Score - HEART Score History: Slightly suspicious EKG: Normal Age: > 65 Troponin: Troponin T 0.085 ng/mL (0.00-0.029) H 08/30/20 00:15 Troponin: < normal limit - Critical Actions Critical Actions: 0-3 pts:0.9-1.7%risk of adverse cardiac event.Candidate for discharge Results - Labs CBC & Chem 7: 09/03/20 04:12 09/03/20 04:12 Labs: Laboratory Last Values WBC 8.7 K/mm3 (4.5-11.0) 09/03/20 04:12 RBC 2.35 M/mm3 (3.65-5.03) L 09/03/20 04:12 Hgb 8.3 gm/dl (10.1-14.3) L 09/03/20 04:12 Hct 25.1 % (30.3-42.9) L 09/03/20 04:12 MCV 107 fl (79-97) H 09/03/20 04:12 MCH 35 pg (28-32) H 09/03/20 04:12 MCHC 33 % (30-34) 09/03/20 04:12 RDW 18.5 % (13.2-15.2) H 09/03/20 04:12 Plt Count 87 K/mm3 (140-440) L 09/03/20 04:12 Lymph % (Auto) 6.9 % (13.4-35.0) L 08/31/20 05:45 Spink % (Auto) 4.5 % (0.0-7.3) 08/31/20 05:45 Eos % (Auto) 0.0 % (0.0-4.3) 08/31/20 05:45 Baso % (Auto) 0.8 % (0.0-1.8) 08/31/20 05:45 Lymph # (Auto) 0.9 K/mm3 (1.2-5.4) L 08/31/20 05:45 Spink # (Auto) 0.6 K/mm3 (0.0-0.8) 08/31/20 05:45 Eos # (Auto) 0.0 K/mm3 (0.0-0.4) 08/31/20 05:45 Baso # (Auto) 0.1 K/mm3 (0.0-0.1) 08/31/20 05:45 Add Manual Diff Complete 08/30/20 00:15 Total Counted 100 08/30/20 00:15 Seg Neutrophils % 87.8 % (40.0-70.0) H 08/31/20 05:45 Seg Neuts % (Manual) 57.0 % (40.0-70.0) 08/30/20 00:15 Band Neutrophils % 1.0 % 08/30/20 00:15 Lymphocytes % (Manual) 34.0 % (13.4-35.0) 08/30/20 00:15 Monocytes % (Manual) 5.0 % (0.0-7.3) 08/30/20 00:15 Eosinophils % (Manual) 3.0 % (0.0-4.3) 08/30/20 00:15 Nucleated RBC % 1.0 % (0.0-0.9) H 08/30/20 00:15 Seg Neutrophils # 11.5 K/mm3 (1.8-7.7) H 08/31/20 05:45 Seg Neutrophils # Man 5.6 K/mm3 (1.8-7.7) 08/30/20 00:15 Band Neutrophils # 0.1 K/mm3 08/30/20 00:15 Lymphocytes # (Manual) 3.3 K/mm3 (1.2-5.4) 08/30/20 00:15 Abs React Lymphs (Man) 0.0 K/mm3 08/30/20 00:15 Monocytes # (Manual) 0.5 K/mm3 (0.0-0.8) 08/30/20 00:15 Eosinophils # (Manual) 0.3 K/mm3 (0.0-0.4) 08/30/20 00:15 Basophils # (Manual) 0.0 K/mm3 (0.0-0.1) 08/30/20 00:15 Metamyelocytes # 0.0 K/mm3 08/30/20 00:15 Myelocytes # 0.0 K/mm3 08/30/20 00:15 Promyelocytes # 0.0 K/mm3 08/30/20 00:15 Blast Cells # 0.0 K/mm3 08/30/20 00:15 WBC Morphology Not Reportable 08/30/20 00:15 Hypersegmented Neuts Not Reportable 08/30/20 00:15 Hyposegmented Neuts Not Reportable 08/30/20 00:15 Hypogranular Neuts Not Reportable 08/30/20 00:15 Smudge Cells Not Reportable 08/30/20 00:15 Toxic Granulation Not Reportable 08/30/20 00:15 Toxic Vacuolation Not Reportable 08/30/20 00:15 Dohle Bodies Not Reportable 08/30/20 00:15 Pelger-Huet Anomaly Not Reportable 08/30/20 00:15 Lolita Rods Not Reportable 08/30/20 00:15 Platelet Estimate Consistent w auto 08/30/20 00:15 Clumped Platelets Not Reportable 08/30/20 00:15 Plt Clumps, EDTA Not Reportable 08/30/20 00:15 Large Platelets Not Reportable 08/30/20 00:15 Giant Platelets Not Reportable 08/30/20 00:15 Platelet Satelliting Not Reportable 08/30/20 00:15 Plt Morphology Comment Not Reportable 08/30/20 00:15 RBC Morphology Not Reportable 08/30/20 00:15 Dimorphic RBCs Not Reportable 08/30/20 00:15 Polychromasia Not Reportable 08/30/20 00:15 Hypochromasia Not Reportable 08/30/20 00:15 Poikilocytosis Not Reportable 08/30/20 00:15 Anisocytosis 1+ 08/30/20 00:15 Microcytosis Not Reportable 08/30/20 00:15 Macrocytosis Not Reportable 08/30/20 00:15 Spherocytes Not Reportable 08/30/20 00:15 Pappenheimer Bodies Not Reportable 08/30/20 00:15 Sickle Cells Not Reportable 08/30/20 00:15 Target Cells Not Reportable 08/30/20 00:15 Tear Drop Cells Not Reportable 08/30/20 00:15 Ovalocytes Not Reportable 08/30/20 00:15 Helmet Cells Not Reportable 08/30/20 00:15 [place] Bodies Not Reportable 08/30/20 00:15 [place] Rings Not Reportable 08/30/20 00:15 [place] Cells Not Reportable 08/30/20 00:15 Bite Cells Not Reportable 08/30/20 00:15 Crenated Cell Not Reportable 08/30/20 00:15 Elliptocytes Not Reportable 08/30/20 00:15 Acanthocytes (Spur) Not Reportable 08/30/20 00:15 Rouleaux Not Reportable 08/30/20 00:15 Hemoglobin C Crystals Not Reportable 08/30/20 00:15 Schistocytes Not Reportable 08/30/20 00:15 Malaria parasites Not Reportable 08/30/20 00:15 [place] Bodies Not Reportable 08/30/20 00:15 Hem Pathologist Commnt No 08/30/20 00:15 PT 12.8 Sec. (12.2-14.9) 08/31/20 05:45 INR 0.90 (0.87-1.13) 08/31/20 05:45 D-Dimer > 22322 ng/mlDDU (0-234) H 08/30/20 03:10 ABG pH 7.428 (7.320-7.450) 09/06/20 07:39 POC ABG pCO2 36.9 mmHg (32.0-48.0) 09/06/20 07:39 ABG pCO2 38.0 mm Hg 09/02/20 03:40 POC ABG pO2 66.8 mmHg (83-108) L 09/06/20 07:39 ABG pO2 83.1 mm Hg (80.0-90.0) 09/02/20 03:40 POC ABG HCO3 23.8 09/06/20 07:39 ABG HCO3 29.4 mmol/L (20.0-26.0) H 09/02/20 03:40 ABG O2 Saturation 91.2 (0-100) 09/06/20 07:39 ABG O2 Content 11.2 (0.0-44) 09/02/20 03:40 POC ABG Base Excess -0.3 09/06/20 07:39 ABG Base Excess 5.9 mmol/L (-2.0-3.0) H 09/02/20 03:40 ABG Hemoglobin 9.3 (12.0-17.5) L 09/06/20 07:39 ABG Oxyhemoglobin 89.9 (94-98) L 09/06/20 07:39 ABG Carboxyhemoglobin 1.9 % (0.0-5.0) 09/02/20 03:40 ABG Methemoglobin 0.3 (0.0-1.5) 09/06/20 07:39 ABG Sodium 130.5 mmol/L (136.0-145.0) L 09/06/20 07:39 ABG Potassium 5.1 mmol/L (3.40-4.50) H 09/06/20 07:39 ABG Chloride 91.0 mmol/L (98-107) L 09/06/20 07:39 ABG Glucose 224 mg/dL (65-95) H 09/06/20 07:39 Oxyhemoglobin 94.8 % (95.0-99.0) L 09/02/20 03:40 Carboxyhemoglobin 1.1 (0.5-1.5) 09/06/20 07:39 FiO2 30 % 09/02/20 03:40 FiO2 % 100.0 09/06/20 07:39 Sodium 136 mmol/L (137-145) L 09/03/20 04:12 Potassium 4.1 mmol/L (3.6-5.0) 09/03/20 04:12 Chloride 90.3 mmol/L (98-107) L 09/03/20 04:12 Carbon Dioxide 29 mmol/L (22-30) 09/03/20 04:12 Anion Gap 21 mmol/L 09/03/20 04:12 BUN 79 mg/dL (7-17) H 09/03/20 04:12 Creatinine 8.1 mg/dL (0.6-1.2) H 09/03/20 04:12 Estimated GFR 6 ml/min 09/03/20 04:12 BUN/Creatinine Ratio 10 % 09/03/20 04:12 Glucose 223 mg/dL (65-100) H 09/03/20 04:12 POC Glucose 163 mg/dL (70-105) H 09/06/20 05:20 Calcium 7.1 mg/dL (8.4-10.2) L 09/03/20 04:12 Phosphorus 11.50 mg/dL (2.5-4.5) H 08/30/20 00:15 Magnesium 3.80 mg/dL (1.7-2.3) H 08/30/20 00:15 Ferritin 830.0 ng/mL (10.0-200.0) H 08/30/20 03:10 Total Bilirubin 0.40 mg/dL (0.1-1.2) 08/30/20 15:03 AST 68 units/L (5-40) H 08/30/20 15:03 ALT 41 units/L (7-56) 08/30/20 15:03 Alkaline Phosphatase 364 units/L (35-129) H 08/30/20 15:03 Lactate Dehydrogenase 400 units/L (91-180) H 08/30/20 03:10 Troponin T 0.085 ng/mL (0.00-0.029) H 08/30/20 00:15 C-Reactive Protein 0.20 mg/dL (0.00-1.30) 08/30/20 03:10 Total Protein 6.4 g/dL (6.3-8.2) 08/30/20 15:03 Albumin 3.7 g/dL (3.9-5) L 08/30/20 15:03 Albumin/Globulin Ratio 1.4 % 08/30/20 15:03 Triglycerides 61 mg/dL (2-149) 08/30/20 00:15 Cholesterol 150 mg/dL (50-199) 08/30/20 00:15 LDL Cholesterol Direct 71 mg/dL (50-130) 08/30/20 00:15 HDL Cholesterol 66 mg/dL (40-59) H 08/30/20 00:15 Cholesterol/HDL Ratio 2.27 % 08/30/20 00:15 Procalcitonin 4.16 ng/mL (<0.15) 08/30/20 03:10 Arterial Blood Glucose 224 mg/dL (65-95) H 09/06/20 07:39 Arterial Blood Ionized Calcium 3.8 mg/dL (4.6-5.3) L 09/06/20 07:39 Coronavirus (PCR) Negative (Negative) 08/30/20 Unknown Hepatitis A IgM Ab Non-reactive (NonReactive) 08/30/20 07:35 Hep Bs Antigen Non-reactive (Negative) 08/30/20 07:35 Hep B Core IgM Ab Non-reactive (NonReactive) 08/30/20 07:35 Hepatitis C Antibody Non-reactive (NonReactive) 08/30/20 07:35 - Imaging and Cardiology MRI - head: report reviewed Johns/IV: Voiding Method Incontinent Active Medications - Current Medications Current Medications: Generic Name Dose Route Start Last Admin Trade Name Freq PRN Reason Stop Dose Admin Acetaminophen 650 mg 09/01/20 00:27 09/04/20 04:34 Acetaminophen 325 Mg/10.15 Ml Oral Liqd Unit Dose FEEDTUBE 650 mg Q6H PRN Administration Non Cardiac Pain or Temp>100.5 Amlodipine Besylate 10 mg 09/03/20 11:00 09/06/20 09:39 Amlodipine 10 Mg Tab PO 10 mg QDAY ANIYAH Administration Lipase/Protease/Amylase 1 each 08/30/20 14:27 Lipase 10,500/Protease 25,000/Amylase 43,750 (Units) Dr Duran FEEDTUBE PRN PRN For Clogged Feeding Tube Dextrose 50 ml 08/30/20 19:48 Dextrose 50% In Water (25gm) 50 Ml Syringe IV Q30MIN PRN Hypoglycemia Protocol Famotidine 20 mg 09/02/20 10:00 09/06/20 09:34 Famotidine 20 Mg Tab PO 20 mg DAILY ANIYAH Administration Heparin Sodium (Porcine) 5,000 unit 08/30/20 06:00 09/06/20 06:15 Heparin 5,000 Unit/1 Ml Vial SUB-Q 5,000 unit Q8HR ANIYAH Administration Hydralazine HCl 10 mg 08/31/20 18:14 09/04/20 04:34 Hydralazine 20 Mg/1 Ml Inj IV 10 mg Q4HR PRN Administration Hypertension Hydrophilic Ointment 1 applic 08/30/20 14:05 Lip Therapy Vaseline TP Q2HR PRN Dry Lips Sodium Chloride 100 mls @ 999 mls/hr 08/30/20 09:00 Nacl 0.9% IV ARMIDA PRN Hypotension Meropenem 500 mg in 50 mls @ 50 mls/hr 08/30/20 14:00 09/05/20 15:10 Merrem/Ns 500 Mg/50 Ml IV 09/06/20 14:59 Infused Q24H ANIYAH Infusion Insulin Glargine 30 units 09/03/20 10:00 09/06/20 09:38 Insulin Glargine 100 Units/Ml SUB-Q 30 units DAILY ANIYAH Administration Insulin Human Lispro 5 unit 09/04/20 08:00 09/06/20 10:29 Insulin Lispro 100 Unit/Ml SUB-Q 5 unit TID ANIYAH Administration Insulin Human Regular 0 units 09/01/20 10:00 09/06/20 10:29 Insulin Regular, Human 100 Units/1 Ml SUB-Q 4 units Q4HR ANIYAH Administration Protocol Levetiracetam 750 mg 09/04/20 22:00 09/06/20 09:34 Levetiracetam 500 Mg/5 Ml Oral Liqd PO 750 mg BID ANIYAH Administration Magnesium Hydroxide 30 ml 08/30/20 04:41 Magnesium Hydroxide (Mom) Oral Liqd Udc PO Q4H PRN Constipation Metoprolol Tartrate 50 mg 09/03/20 11:00 09/06/20 09:34 Metoprolol Tartrate 50 Mg Tab PO 50 mg BID ANIYAH Administration Multi-Ingred Cream/Lotion/Oil/Oint 1 applic 08/30/20 14:05 08/31/20 01:17 Mineral Oil/Petrolatum, White Ophth Oint 3.5 Gm OU 1 applic Q4HR PRN Administration Dry Eye(s) Nitroglycerin 0.4 mg 09/04/20 06:00 09/06/20 06:15 Nitroglycerin 0.4 Mg Patch 24hr TD 0.4 mg QDAY@0600 ANIYHA Administration Ondansetron HCl 4 mg 08/30/20 04:41 Ondansetron 4 Mg/2 Ml Inj IV Q8H PRN Nausea And Vomiting Senna/Docusate Sodium 1 tab 08/30/20 22:00 09/06/20 09:34 Sennosides/Docusate Sodium 8.6/50 Mg Tab FEEDTUBE 1 tab BID ANIYAH Administration Simple Syrup 15 ml 08/30/20 14:27 Simple Syrup 15 Ml FEEDTUBE PRN PRN Hypoglycemia Simple Syrup 30 ml 08/30/20 14:27 Simple Syrup 15 Ml FEEDTUBE PRN PRN Hypoglycemia Sodium Bicarbonate 325 mg 08/30/20 14:27 09/05/20 08:26 Sodium Bicarbonate 325 Mg Tab FEEDTUBE 325 mg PRN PRN Administration For Clogged Feeding Tube Sodium Chloride 10 ml 08/30/20 10:00 09/06/20 10:30 Sodium Chloride 0.9% 10 Ml Flush Syringe IV 10 ml BID ANIYAH Administration Sodium Chloride 10 ml 08/30/20 04:41 Sodium Chloride 0.9% 10 Ml Flush Syringe IV PRN PRN LINE FLUSH Nutrition/Malnutrition Assess - Dietary Evaluation Nutrition/Malnutrition Findings: Nutrition Notes Start: 08/30/20 07:40 Freq: Status: Active Protocol: Document 09/03/20 10:52 CW (Rec: 09/03/20 10:56 CW [id number]) Nutrition Notes Initial or Follow up Reassessment Current Diagnosis CKD (stage V CKD),Diabetes, Hypertension Other Pertinent Diagnosis pneu, cardiac arrest, on HD, COVID PUI Current Diet Nepro 1.8 at 35 ml/hr Labs/Tests Na 136 BUN 79 Cr 8.1 BG 223 Pertinent Medications Humulin Nitroglycerin in dextrose at 13.5 ml/hr Merrem Height 5 ft 3 in Weight 62.9 kg [place] Body Weight (kg) 52.27 BMI 24.5 Weight Status Appropriate Subjective/Other Information FU for TF tolerance. Pt received HD today. TF running at goal. NOK considering hospice placement. No reports of TF intolerance. Loose stool likely related to ABTx. RD conducted reqwt d/t wt anomaly . Percent of energy/protein needs met: 100%/85% Burn Absent Trauma Absent GI Symptoms Diarrhea Current % PO Negligible Minimum of two criteria No physical signs of malnutrition #1 Nutrition Diagnosis Inadequate oral intake Diagnosis Progress(for reassessment Continues documentation) Is patient on ventilator? Yes Is Patient Ambulatory and/or Out of Bed No REE-([facility]-confined to bed) 1371.336 Calculation Used for Recommendations [facility] Additional Notes Protein: (1.2-2g/kg) 80-133g Fluid: 1 - 1.5 L Nutrition Intervention Change Diet Order: Continue Nutrition Support: Nepro 1.8 at 35 ml/hr Flush 150 ml q4h or per MD Kcal 1,512 Protein (gm) 68 Carbohydrates (gm) 135 Fat (gm) 81 Fluid (mL) 611 Goal #1 Meet at least 75% of protein and energy needs via TF Anticipated Discharge Needs: Unable to determine at this time Follow-Up By: 09/06/20 Additional Comments F/U for TF tolerance, wt - Malnutrition Assessment Minimum of two criteria: Yes - Attestation Statement I have reviewed and agreed w/ Malnutrition eval & tx plan: Yes <CAIT GARCES - Last Filed: 09/06/20 16:39> Hospitalist Physical - Constitutional Vitals: Temp Pulse Resp BP Pulse Ox 98.6 F 72 18 117/49 100 06/21/21 12:00 09/06/20 15:05 09/06/20 14:30 09/06/20 15:05 09/06/20 15:05 HEART Score - HEART Score Troponin: Troponin T 0.085 ng/mL (0.00-0.029) H 08/30/20 00:15 Results - Labs CBC & Chem 7: 09/03/20 04:12 09/03/20 04:12 Labs: Laboratory Last Values WBC 8.7 K/mm3 (4.5-11.0) 09/03/20 04:12 RBC 2.35 M/mm3 (3.65-5.03) L 09/03/20 04:12 Hgb 8.3 gm/dl (10.1-14.3) L 09/03/20 04:12 Hct 25.1 % (30.3-42.9) L 09/03/20 04:12 MCV 107 fl (79-97) H 09/03/20 04:12 MCH 35 pg (28-32) H 09/03/20 04:12 MCHC 33 % (30-34) 09/03/20 04:12 RDW 18.5 % (13.2-15.2) H 09/03/20 04:12 Plt Count 87 K/mm3 (140-440) L 09/03/20 04:12 Lymph % (Auto) 6.9 % (13.4-35.0) L 08/31/20 05:45 [place]ink % (Auto) 4.5 % (0.0-7.3) 08/31/20 05:45 Eos % (Auto) 0.0 % (0.0-4.3) 08/31/20 05:45 Baso % (Auto) 0.8 % (0.0-1.8) 08/31/20 05:45 Lymph # (Auto) 0.9 K/mm3 (1.2-5.4) L 08/31/20 05:45 [place] # (Auto) 0.6 K/mm3 (0.0-0.8) 08/31/20 05:45 Eos # (Auto) 0.0 K/mm3 (0.0-0.4) 08/31/20 05:45 Baso # (Auto) 0.1 K/mm3 (0.0-0.1) 08/31/20 05:45 Add Manual Diff Complete 08/30/20 00:15 Total Counted 100 08/30/20 00:15 Seg Neutrophils % 87.8 % (40.0-70.0) H 08/31/20 05:45 Seg Neuts % (Manual) 57.0 % (40.0-70.0) 08/30/20 00:15 Band Neutrophils % 1.0 % 08/30/20 00:15 Lymphocytes % (Manual) 34.0 % (13.4-35.0) 08/30/20 00:15 Monocytes % (Manual) 5.0 % (0.0-7.3) 08/30/20 00:15 Eosinophils % (Manual) 3.0 % (0.0-4.3) 08/30/20 00:15 Nucleated RBC % 1.0 % (0.0-0.9) H 08/30/20 00:15 Seg Neutrophils # 11.5 K/mm3 (1.8-7.7) H 08/31/20 05:45 Seg Neutrophils # Man 5.6 K/mm3 (1.8-7.7) 08/30/20 00:15 Band Neutrophils # 0.1 K/mm3 08/30/20 00:15 Lymphocytes # (Manual) 3.3 K/mm3 (1.2-5.4) 08/30/20 00:15 Abs React Lymphs (Man) 0.0 K/mm3 08/30/20 00:15 Monocytes # (Manual) 0.5 K/mm3 (0.0-0.8) 08/30/20 00:15 Eosinophils # (Manual) 0.3 K/mm3 (0.0-0.4) 08/30/20 00:15 Basophils # (Manual) 0.0 K/mm3 (0.0-0.1) 08/30/20 00:15 Metamyelocytes # 0.0 K/mm3 08/30/20 00:15 Myelocytes # 0.0 K/mm3 08/30/20 00:15 Promyelocytes # 0.0 K/mm3 08/30/20 00:15 Blast Cells # 0.0 K/mm3 08/30/20 00:15 WBC Morphology Not Reportable 08/30/20 00:15 Hypersegmented Neuts Not Reportable 08/30/20 00:15 Hyposegmented Neuts Not Reportable 08/30/20 00:15 Hypogranular Neuts Not Reportable 08/30/20 00:15 Smudge Cells Not Reportable 08/30/20 00:15 Toxic Granulation Not Reportable 08/30/20 00:15 Toxic Vacuolation Not Reportable 08/30/20 00:15 Dohle Bodies Not Reportable 08/30/20 00:15 Pelger-Huet Anomaly Not Reportable 08/30/20 00:15 Lolita Rods Not Reportable 08/30/20 00:15 Platelet Estimate Consistent w auto 08/30/20 00:15 Clumped Platelets Not Reportable 08/30/20 00:15 Plt Clumps, EDTA Not Reportable 08/30/20 00:15 Large Platelets Not Reportable 08/30/20 00:15 Giant Platelets Not Reportable 08/30/20 00:15 Platelet Satelliting Not Reportable 08/30/20 00:15 Plt Morphology Comment Not Reportable 08/30/20 00:15 RBC Morphology Not Reportable 08/30/20 00:15 Dimorphic RBCs Not Reportable 08/30/20 00:15 Polychromasia Not Reportable 08/30/20 00:15 Hypochromasia Not Reportable 08/30/20 00:15 Poikilocytosis Not Reportable 08/30/20 00:15 Anisocytosis 1+ 08/30/20 00:15 Microcytosis Not Reportable 08/30/20 00:15 Macrocytosis Not Reportable 08/30/20 00:15 Spherocytes Not Reportable 08/30/20 00:15 Pappenheimer Bodies Not Reportable 08/30/20 00:15 Sickle Cells Not Reportable 08/30/20 00:15 Target Cells Not Reportable 08/30/20 00:15 Tear Drop Cells Not Reportable 08/30/20 00:15 Ovalocytes Not Reportable 08/30/20 00:15 Helmet Cells Not Reportable 08/30/20 00:15 [place] Bodies Not Reportable 08/30/20 00:15 [place] Rings Not Reportable 08/30/20 00:15 [place] Cells Not Reportable 08/30/20 00:15 Bite Cells Not Reportable 08/30/20 00:15 Crenated Cell Not Reportable 08/30/20 00:15 Elliptocytes Not Reportable 08/30/20 00:15 Acanthocytes (Spur) Not Reportable 08/30/20 00:15 Rouleaux Not Reportable 08/30/20 00:15 Hemoglobin C Crystals Not Reportable 08/30/20 00:15 Schistocytes Not Reportable 08/30/20 00:15 [place] parasites Not Reportable 08/30/20 00:15 [place] Bodies Not Reportable 08/30/20 00:15 Hem Pathologist Commnt No 08/30/20 00:15 PT 12.8 Sec. (12.2-14.9) 08/31/20 05:45 INR 0.90 (0.87-1.13) 08/31/20 05:45 D-Dimer > 89354 ng/mlDDU (0-234) H 08/30/20 03:10 ABG pH 7.428 (7.320-7.450) 09/06/20 07:39 POC ABG pCO2 36.9 mmHg (32.0-48.0) 09/06/20 07:39 ABG pCO2 38.0 mm Hg 09/02/20 03:40 POC ABG pO2 66.8 mmHg (83-108) L 09/06/20 07:39 ABG pO2 83.1 mm Hg (80.0-90.0) 09/02/20 03:40 POC ABG HCO3 23.8 09/06/20 07:39 ABG HCO3 29.4 mmol/L (20.0-26.0) H 09/02/20 03:40 ABG O2 Saturation 91.2 (0-100) 09/06/20 07:39 ABG O2 Content 11.2 (0.0-44) 09/02/20 03:40 POC ABG Base Excess -0.3 09/06/20 07:39 ABG Base Excess 5.9 mmol/L (-2.0-3.0) H 09/02/20 03:40 ABG Hemoglobin 9.3 (12.0-17.5) L 09/06/20 07:39 ABG Oxyhemoglobin 89.9 (94-98) L 09/06/20 07:39 ABG Carboxyhemoglobin 1.9 % (0.0-5.0) 09/02/20 03:40 ABG Methemoglobin 0.3 (0.0-1.5) 09/06/20 07:39 ABG Sodium 130.5 mmol/L (136.0-145.0) L 09/06/20 07:39 ABG Potassium 5.1 mmol/L (3.40-4.50) H 09/06/20 07:39 ABG Chloride 91.0 mmol/L (98-107) L 09/06/20 07:39 ABG Glucose 224 mg/dL (65-95) H 09/06/20 07:39 Oxyhemoglobin 94.8 % (95.0-99.0) L 09/02/20 03:40 Carboxyhemoglobin 1.1 (0.5-1.5) 09/06/20 07:39 FiO2 30 % 09/02/20 03:40 FiO2 % 100.0 09/06/20 07:39 Sodium 136 mmol/L (137-145) L 09/03/20 04:12 Potassium 4.1 mmol/L (3.6-5.0) 09/03/20 04:12 Chloride 90.3 mmol/L (98-107) L 09/03/20 04:12 Carbon Dioxide 29 mmol/L (22-30) 09/03/20 04:12 Anion Gap 21 mmol/L 09/03/20 04:12 BUN 79 mg/dL (7-17) H 09/03/20 04:12 Creatinine 8.1 mg/dL (0.6-1.2) H 09/03/20 04:12 Estimated GFR 6 ml/min 09/03/20 04:12 BUN/Creatinine Ratio 10 % 09/03/20 04:12 Glucose 223 mg/dL (65-100) H 09/03/20 04:12 POC Glucose 236 mg/dL (70-105) H 09/06/20 09:30 Calcium 7.1 mg/dL (8.4-10.2) L 09/03/20 04:12 Phosphorus 11.50 mg/dL (2.5-4.5) H 08/30/20 00:15 Magnesium 3.80 mg/dL (1.7-2.3) H 08/30/20 00:15 Ferritin 830.0 ng/mL (10.0-200.0) H 08/30/20 03:10 Total Bilirubin 0.40 mg/dL (0.1-1.2) 08/30/20 15:03 AST 68 units/L (5-40) H 08/30/20 15:03 ALT 41 units/L (7-56) 08/30/20 15:03 Alkaline Phosphatase 364 units/L (35-129) H 08/30/20 15:03 Lactate Dehydrogenase 400 units/L (91-180) H 08/30/20 03:10 Troponin T 0.085 ng/mL (0.00-0.029) H 08/30/20 00:15 C-Reactive Protein 0.20 mg/dL (0.00-1.30) 08/30/20 03:10 Total Protein 6.4 g/dL (6.3-8.2) 08/30/20 15:03 Albumin 3.7 g/dL (3.9-5) L 08/30/20 15:03 Albumin/Globulin Ratio 1.4 % 08/30/20 15:03 Triglycerides 61 mg/dL (2-149) 08/30/20 00:15 Cholesterol 150 mg/dL (50-199) 08/30/20 00:15 LDL Cholesterol Direct 71 mg/dL (50-130) 08/30/20 00:15 HDL Cholesterol 66 mg/dL (40-59) H 08/30/20 00:15 Cholesterol/HDL Ratio 2.27 % 08/30/20 00:15 Procalcitonin 4.16 ng/mL (<0.15) 08/30/20 03:10 Arterial Blood Glucose 224 mg/dL (65-95) H 09/06/20 07:39 Arterial Blood Ionized Calcium 3.8 mg/dL (4.6-5.3) L 09/06/20 07:39 Coronavirus (PCR) Negative (Negative) 08/30/20 Unknown Hepatitis A IgM Ab Non-reactive (NonReactive) 08/30/20 07:35 Hep Bs Antigen Non-reactive (Negative) 08/30/20 07:35 Hep B Core IgM Ab Non-reactive (NonReactive) 08/30/20 07:35 Hepatitis C Antibody Non-reactive (NonReactive) 08/30/20 07:35 Johns/IV: Voiding Method Incontinent Active Medications - Current Medications Current Medications: Generic Name Dose Route Start Last Admin Trade Name Freq PRN Reason Stop Dose Admin Acetaminophen 650 mg 09/01/20 00:27 09/04/20 04:34 Acetaminophen 325 Mg/10.15 Ml Oral Liqd Unit Dose FEEDTUBE 650 mg Q6H PRN Administration Non Cardiac Pain or Temp>100.5 Amlodipine Besylate 10 mg 09/03/20 11:00 09/06/20 09:39 Amlodipine 10 Mg Tab PO 10 mg QDAY ANIYAH Administration Lipase/Protease/Amylase 1 each 08/30/20 14:27 Lipase 10,500/Protease 25,000/Amylase 43,750 (Units) Dr Duran FEEDTUBE PRN PRN For Clogged Feeding Tube Dextrose 50 ml 08/30/20 19:48 Dextrose 50% In Water (25gm) 50 Ml Syringe IV Q30MIN PRN Hypoglycemia Protocol Famotidine 20 mg 09/02/20 10:00 09/06/20 09:34 Famotidine 20 Mg Tab PO 20 mg DAILY ANIYAH Administration Heparin Sodium (Porcine) 5,000 unit 08/30/20 06:00 09/06/20 14:45 Heparin 5,000 Unit/1 Ml Vial SUB-Q 5,000 unit Q8HR ANIYAH Administration Hydralazine HCl 10 mg 08/31/20 18:14 09/04/20 04:34 Hydralazine 20 Mg/1 Ml Inj IV 10 mg Q4HR PRN Administration Hypertension Hydrophilic Ointment 1 applic 08/30/20 14:05 Lip Therapy Vaseline TP Q2HR PRN Dry Lips Sodium Chloride 100 mls @ 999 mls/hr 08/30/20 09:00 Nacl 0.9% IV ARMIDA PRN Hypotension Insulin Glargine 30 units 09/03/20 10:00 09/06/20 09:38 Insulin Glargine 100 Units/Ml SUB-Q 30 units DAILY ANIYAH Administration Insulin Human Lispro 5 unit 09/04/20 08:00 09/06/20 15:38 Insulin Lispro 100 Unit/Ml SUB-Q 5 unit TID ANIYAH Administration Insulin Human Regular 0 units 09/01/20 10:00 09/06/20 15:35 Insulin Regular, Human 100 Units/1 Ml SUB-Q 3 units Q4HR ANIYAH Administration Protocol Levetiracetam 750 mg 09/04/20 22:00 09/06/20 09:34 Levetiracetam 500 Mg/5 Ml Oral Liqd PO 750 mg BID ANIYAH Administration Magnesium Hydroxide 30 ml 08/30/20 04:41 Magnesium Hydroxide (Mom) Oral Liqd Udc PO Q4H PRN Constipation Metoprolol Tartrate 50 mg 09/03/20 11:00 09/06/20 09:34 Metoprolol Tartrate 50 Mg Tab PO 50 mg BID ANIYAH Administration Multi-Ingred Cream/Lotion/Oil/Oint 1 applic 08/30/20 14:05 08/31/20 01:17 Mineral Oil/Petrolatum, White Ophth Oint 3.5 Gm OU 1 applic Q4HR PRN Administration Dry Eye(s) Nitroglycerin 0.4 mg 09/04/20 06:00 09/06/20 06:15 Nitroglycerin 0.4 Mg Patch 24hr TD 0.4 mg QDAY@0600 ANIYAH Administration Ondansetron HCl 4 mg 08/30/20 04:41 Ondansetron 4 Mg/2 Ml Inj IV Q8H PRN Nausea And Vomiting Senna/Docusate Sodium 1 tab 08/30/20 22:00 09/06/20 09:34 Sennosides/Docusate Sodium 8.6/50 Mg Tab FEEDTUBE 1 tab BID ANIYAH Administration Simple Syrup 15 ml 08/30/20 14:27 Simple Syrup 15 Ml FEEDTUBE PRN PRN Hypoglycemia Simple Syrup 30 ml 08/30/20 14:27 Simple Syrup 15 Ml FEEDTUBE PRN PRN Hypoglycemia Sodium Bicarbonate 325 mg 08/30/20 14:27 09/05/20 08:26 Sodium Bicarbonate 325 Mg Tab FEEDTUBE 325 mg PRN PRN Administration For Clogged Feeding Tube Sodium Chloride 10 ml 08/30/20 10:00 09/06/20 10:30 Sodium Chloride 0.9% 10 Ml Flush Syringe IV 10 ml BID ANIYAH Administration Sodium Chloride 10 ml 08/30/20 04:41 Sodium Chloride 0.9% 10 Ml Flush Syringe IV PRN PRN LINE FLUSH Nutrition/Malnutrition Assess - Dietary Evaluation Nutrition/Malnutrition Findings: Nutrition Notes Start: 08/30/20 07:40 Freq: Status: Active Protocol: Document 09/06/20 13:24 RADHA (Rec: 09/06/20 13:25 NHALL [id number]) Nutrition Notes Initial or Follow up Brief Note Current Diet TF - Nepro at 35ml/hr Subjective/Other Information Pt was tolerating TF at goal rate on 09/03. She remains on vent support; possible transfer to hospice. Nutrition Intervention Follow-Up By: 09/10/20 Additional Comments F/U: stable TF, vent status, wt
--- NOTE | 2020-09-06 10:49 | Progress Note ---
Assessment and Plan Cardiac arrest with return of spontaneous circulation Acute hypoxemic respiratory failure Bilateral pneumonia, possibly aspiration Bilateral pulmonary edema End-stage renal disease, on dialysis NSTEMI Severe hyperkalemia History of multiple myeloma History of hypertension Anemia that is microcytic Elevated serum troponin Get CXR to evaluate pulmonary parenchyma HD today Hold any further SBT today- she is on PEP +10/FIO2 100% - continue to titrate supplemental oxygen to maintain sPO2 89-92% - VAP bundle addressed, aspiration precautions HOB >40 - continue lung protective strategies - continue bronchodilators with pulmonary hygiene per RT - continue HD/UF for toxin and volume clearance, conservative fluid therapy as tolerated by hemodynamics - continue to avoid nephrotoxins, renally dose all medications - continue accuchecks with glycemic control per SSI (While critically ill target blood glucose of 140-180 mg/dL; avoid hypoglycemia) - complete ABs per ID recs -currently on Meropenem to complete 8 days of therapy - continue enteral nutritional support at goal rate as tolerated -VTE prophylaxis -Stress ulcer prophylaxis - PT/OT/ROM exercises - continue mobility , off loading, frequent turning to prevent pressure ulcers - discharge planning ongoing concurrently Goals of care discussions with family on going- patient remains full resuscitation for now. Plan for inpatient hospice CONDITION: CRITICAL PROGNOSIS: GUARDED CODE STATUS: FULL CODE The high probability of a clinically significant, sudden or life-threatening deterioration of the [respiratory, cardiovascular, hematologic, renal & neurol ogic] system(s) required my full and direct attention, intervention and personal management. The aggregate critical care time was [33] minutes without overlap. Time includes spent on; [x] Data Review and interpretation [x] Patient assessment and monitoring of vital signs [x] Documentation [x] Medication orders and management Subjective Date of service: 09/06/20 Principal diagnosis: Cardiac arrest; Ac. hypoxemic resp failure; PNA; ESRD; NSTEMI; Hyperkalemia Interval history: Patient is seen today for: Cardiac arrest with ROSC; Acute hypoxemic respiratory failure; Aspiration Pneumonia; ESRD on dialysis; NSTEMI; Hyperkalemia Seen and examined at bedside; 24hour events reviewed; nursing and respiratory care staff consulted; no adverse overnight events reported to me; resting peacefully in bed; MRI confirmed anoxic injury; she remains on MVS with persistent mental status changes. Episodes of desaturations this morning, requiring increases in PEEP and FIO2. Discussed in MDR Objective Vital Signs - 12hr 09/05/20 09/05/20 09/05/20 23:01 23:15 23:16 Temperature Pulse Rate 89 91 H 88 Pulse Rate [ From Monitor] Respiratory 25 H 22 Rate Blood Pressure 158/53 158/53 158/53 O2 Sat by Pulse 98 97 97 Oximetry 09/05/20 09/05/20 09/06/20 23:30 23:45 00:00 Temperature 98.9 F Pulse Rate 90 89 89 Pulse Rate [ 89 From Monitor] Respiratory 24 25 H 24 Rate Blood Pressure 149/53 158/53 171/57 O2 Sat by Pulse 96 96 96 Oximetry 09/06/20 09/06/20 09/06/20 00:15 00:30 00:45 Temperature Pulse Rate 90 88 88 Pulse Rate [ From Monitor] Respiratory 25 H 23 21 Rate Blood Pressure 171/57 170/55 170/55 O2 Sat by Pulse 96 97 98 Oximetry 09/06/20 09/06/20 09/06/20 01:00 01:15 01:30 Temperature Pulse Rate 87 86 86 Pulse Rate [ From Monitor] Respiratory 19 21 Rate Blood Pressure 176/53 176/53 158/53 O2 Sat by Pulse 99 99 99 Oximetry 09/06/20 09/06/20 09/06/20 01:45 02:00 02:15 Temperature Pulse Rate 87 88 85 Pulse Rate [ From Monitor] Respiratory 21 28 H 26 H Rate Blood Pressure 158/53 165/58 165/58 O2 Sat by Pulse 99 90 90 Oximetry 09/06/20 09/06/20 09/06/20 02:30 02:45 03:00 Temperature Pulse Rate 79 75 74 Pulse Rate [ From Monitor] Respiratory 20 21 25 H Rate Blood Pressure 151/57 165/58 145/54 O2 Sat by Pulse 91 90 91 Oximetry 09/06/20 09/06/20 09/06/20 03:13 03:15 03:30 Temperature Pulse Rate 74 74 74 Pulse Rate [ From Monitor] Respiratory 24 22 Rate Blood Pressure 145/55 145/54 149/52 O2 Sat by Pulse 96 92 92 Oximetry 09/06/20 09/06/20 09/06/20 03:36 03:45 04:00 Temperature 98.6 F Pulse Rate 75 75 Pulse Rate [ 75 From Monitor] Respiratory 21 26 H Rate Blood Pressure 145/54 155/54 O2 Sat by Pulse 93 93 Oximetry 09/06/20 09/06/20 09/06/20 04:15 04:30 04:45 Temperature Pulse Rate 76 76 77 Pulse Rate [ From Monitor] Respiratory 24 25 H 20 Rate Blood Pressure 155/54 147/52 147/52 O2 Sat by Pulse 93 93 94 Oximetry 09/06/20 09/06/20 09/06/20 05:00 05:15 05:30 Temperature Pulse Rate 77 79 80 Pulse Rate [ From Monitor] Respiratory 22 25 H 24 Rate Blood Pressure 151/51 151/51 168/57 O2 Sat by Pulse 92 92 92 Oximetry 09/06/20 09/06/20 09/06/20 05:45 06:00 06:15 Temperature Pulse Rate 79 80 81 Pulse Rate [ From Monitor] Respiratory 22 Rate Blood Pressure 168/57 153/52 153/52 O2 Sat by Pulse 97 100 100 Oximetry 09/06/20 09/06/20 09/06/20 06:30 06:45 07:00 Temperature Pulse Rate 83 83 86 Pulse Rate [ From Monitor] Respiratory 17 19 27 H Rate Blood Pressure 154/51 153/52 142/52 O2 Sat by Pulse 99 100 96 Oximetry 09/06/20 09/06/20 09/06/20 07:15 07:31 07:42 Temperature Pulse Rate 85 96 H 88 Pulse Rate [ From Monitor] Respiratory 28 H 28 H Rate Blood Pressure 142/52 166/80 166/80 O2 Sat by Pulse 85 86 100 Oximetry 09/06/20 09/06/20 09/06/20 07:45 08:00 08:15 Temperature Pulse Rate 88 89 89 Pulse Rate [ From Monitor] Respiratory 24 24 24 Rate Blood Pressure 166/80 137/55 137/55 O2 Sat by Pulse 100 100 100 Oximetry 09/06/20 09/06/20 09/06/20 08:31 08:33 08:45 Temperature 98.2 F Pulse Rate 89 89 Pulse Rate [ From Monitor] Respiratory 25 H 25 H Rate Blood Pressure 127/54 127/54 O2 Sat by Pulse 100 100 Oximetry 09/06/20 09/06/20 09/06/20 09:00 09:15 09:30 Temperature Pulse Rate 89 89 88 Pulse Rate [ From Monitor] Respiratory 24 24 25 H Rate Blood Pressure 138/56 138/56 144/57 O2 Sat by Pulse 100 100 100 Oximetry 09/06/20 09/06/20 09/06/20 09:34 09:39 09:45 Temperature Pulse Rate 85 85 85 Pulse Rate [ From Monitor] Respiratory 26 H Rate Blood Pressure 144/57 144/57 144/57 O2 Sat by Pulse 100 Oximetry 09/06/20 09/06/20 09/06/20 10:00 10:15 10:30 Temperature Pulse Rate 79 74 71 Pulse Rate [ From Monitor] Respiratory 24 19 18 Rate Blood Pressure 120/47 120/47 118/44 O2 Sat by Pulse 100 100 100 Oximetry Constitutional: no acute distress, other (elderly female with normal respiratory effort at rest on MVS) Eyes: non-icteric ENT: oropharynx moist, other (ETT 23 cm COLLEEN) Neck: supple, no lymphadenopathy, no JVD, other (right chest wall port) Effort: normal Ascultation: Bilateral: rhonchi Percussion: Bilateral: not dull Cardiovascular: regular rate and rhythm, other (S1,S2) Gastrointestinal: normoactive bowel sounds, soft, non-tender Integumentary: normal Extremities: no cyanosis, pulses normal, no ischemia or petechiae Neurologic: pupils equal and round, other (unresponsive, not obeying commands) Psychiatric: other (unable to assess re: AMS) CBC and BMP: 09/07/20 04:12 09/07/20 04:12 ABG, PT/INR, D-dimer: ABG ABG pH 7.428 (7.320-7.450) 09/06/20 07:39 POC ABG pCO2 36.9 mmHg (32.0-48.0) 09/06/20 07:39 ABG pCO2 38.0 mm Hg 09/02/20 03:40 POC ABG pO2 66.8 mmHg (83-108) L 09/06/20 07:39 ABG pO2 83.1 mm Hg (80.0-90.0) 09/02/20 03:40 POC ABG HCO3 23.8 09/06/20 07:39 ABG O2 Saturation 91.2 (0-100) 09/06/20 07:39 PT/INR, D-dimer PT 12.8 Sec. (12.2-14.9) 08/31/20 05:45 INR 0.90 (0.87-1.13) 08/31/20 05:45 D-Dimer > 42170 ng/mlDDU (0-234) H 08/30/20 03:10 Abnormal lab findings: Abnormal Labs 08/30/20 08/30/20 08/30/20 00:14 00:15 00:15 WBC RBC 2.83 L Hgb 9.8 L Hct MCV 112 H MCH 35 H RDW 19.9 H Plt Count 95 L Lymph % (Auto) Lymph # (Auto) Seg Neutrophils % Nucleated RBC % 1.0 H Seg Neutrophils # D-Dimer ABG pH 7.199 L POC ABG pCO2 49.3 H POC ABG pO2 ABG HCO3 ABG Base Excess ABG Hemoglobin 11.9 L ABG Oxyhemoglobin 93.0 L ABG Sodium ABG Potassium 6.9 H ABG Chloride ABG Glucose 158 H Oxyhemoglobin Carboxyhemoglobin 2.8 H Sodium Potassium 7.0 H* Chloride Carbon Dioxide 18 L BUN 68 H Creatinine 8.3 H Glucose 174 H POC Glucose Calcium Phosphorus Magnesium Ferritin AST 68 H Alkaline Phosphatase 414 H Lactate Dehydrogenase Troponin T 0.085 H Total Protein 5.6 L Albumin 3.4 L HDL Cholesterol 66 H Arterial Blood Glucose 158 H Arterial Blood Ionized Calcium 08/30/20 08/30/20 08/30/20 00:15 00:15 03:10 WBC RBC Hgb Hct MCV MCH RDW Plt Count Lymph % (Auto) Lymph # (Auto) Seg Neutrophils % Nucleated RBC % Seg Neutrophils # D-Dimer 6083.16 H > 17228 H ABG pH POC ABG pCO2 POC ABG pO2 ABG HCO3 ABG Base Excess ABG Hemoglobin ABG Oxyhemoglobin ABG Sodium ABG Potassium ABG Chloride ABG Glucose Oxyhemoglobin Carboxyhemoglobin Sodium Potassium Chloride Carbon Dioxide BUN Creatinine Glucose POC Glucose Calcium Phosphorus 11.50 H Magnesium 3.80 H Ferritin AST Alkaline Phosphatase Lactate Dehydrogenase Troponin T Total Protein Albumin HDL Cholesterol Arterial Blood Glucose Arterial Blood Ionized Calcium 08/30/20 08/30/20 08/30/20 03:10 03:10 04:49 WBC RBC Hgb Hct MCV MCH RDW Plt Count Lymph % (Auto) Lymph # (Auto) Seg Neutrophils % Nucleated RBC % Seg Neutrophils # D-Dimer ABG pH POC ABG pCO2 POC ABG pO2 ABG HCO3 ABG Base Excess ABG Hemoglobin 10.8 L ABG Oxyhemoglobin ABG Sodium ABG Potassium 6.7 H ABG Chloride ABG Glucose 137 H Oxyhemoglobin Carboxyhemoglobin Sodium Potassium Chloride Carbon Dioxide BUN Creatinine Glucose 126 H POC Glucose Calcium Phosphorus Magnesium Ferritin 830.0 H AST Alkaline Phosphatase Lactate Dehydrogenase 400 H Troponin T Total Protein Albumin HDL Cholesterol Arterial Blood Glucose 137 H Arterial Blood Ionized Calcium 4.5 L 08/30/20 08/30/20 08/30/20 07:13 15:03 15:03 WBC 17.2 H RBC 3.23 L Hgb Hct MCV 108 H MCH 34 H RDW 19.4 H Plt Count 90 L Lymph % (Auto) Lymph # (Auto) Seg Neutrophils % Nucleated RBC % Seg Neutrophils # D-Dimer ABG pH POC ABG pCO2 POC ABG pO2 ABG HCO3 ABG Base Excess ABG Hemoglobin ABG Oxyhemoglobin ABG Sodium ABG Potassium ABG Chloride ABG Glucose Oxyhemoglobin Carboxyhemoglobin Sodium Potassium 8.2 H* 6.5 H* D Chloride 96.7 L Carbon Dioxide 21 L BUN 52 H Creatinine 5.7 H Glucose 220 H POC Glucose Calcium Phosphorus Magnesium Ferritin AST 68 H Alkaline Phosphatase 364 H Lactate Dehydrogenase Troponin T Total Protein Albumin 3.7 L HDL Cholesterol Arterial Blood Glucose Arterial Blood Ionized Calcium 08/30/20 08/30/20 08/31/20 17:27 21:03 04:07 WBC RBC Hgb Hct MCV MCH RDW Plt Count Lymph % (Auto) Lymph # (Auto) Seg Neutrophils % Nucleated RBC % Seg Neutrophils # D-Dimer ABG pH 7.498 H POC ABG pCO2 27.9 L POC ABG pO2 126.9 H ABG HCO3 ABG Base Excess ABG Hemoglobin 10.1 L ABG Oxyhemoglobin 98.3 H ABG Sodium 134.3 L ABG Potassium 6.7 H ABG Chloride ABG Glucose 261 H Oxyhemoglobin Carboxyhemoglobin 0.1 L Sodium Potassium Chloride Carbon Dioxide BUN Creatinine Glucose POC Glucose 223 H 230 H Calcium Phosphorus Magnesium Ferritin AST Alkaline Phosphatase Lactate Dehydrogenase Troponin T Total Protein Albumin HDL Cholesterol Arterial Blood Glucose 261 H Arterial Blood Ionized Calcium 3.6 L 08/31/20 08/31/20 08/31/20 05:01 05:45 05:45 WBC 13.1 H RBC 2.83 L Hgb 9.6 L Hct 29.8 L MCV 105 H MCH 34 H RDW 18.9 H Plt Count 88 L Lymph % (Auto) 6.9 L Lymph # (Auto) 0.9 L Seg Neutrophils % 87.8 H Nucleated RBC % Seg Neutrophils # 11.5 H D-Dimer ABG pH POC ABG pCO2 POC ABG pO2 ABG HCO3 ABG Base Excess ABG Hemoglobin ABG Oxyhemoglobin ABG Sodium ABG Potassium ABG Chloride ABG Glucose Oxyhemoglobin Carboxyhemoglobin Sodium Potassium 7.1 H* Chloride 96.7 L Carbon Dioxide BUN 74 H Creatinine 7.0 H Glucose 254 H POC Glucose 256 H Calcium 7.6 L Phosphorus Magnesium Ferritin AST Alkaline Phosphatase Lactate Dehydrogenase Troponin T Total Protein Albumin HDL Cholesterol Arterial Blood Glucose Arterial Blood Ionized Calcium 08/31/20 08/31/20 09/01/20 11:38 23:31 03:13 WBC RBC Hgb Hct MCV MCH RDW Plt Count Lymph % (Auto) Lymph # (Auto) Seg Neutrophils % Nucleated RBC % Seg Neutrophils # D-Dimer ABG pH 7.519 H POC ABG pCO2 POC ABG pO2 ABG HCO3 ABG Base Excess ABG Hemoglobin 9.3 L ABG Oxyhemoglobin ABG Sodium 134.7 L ABG Potassium ABG Chloride 94.0 L ABG Glucose 441 H Oxyhemoglobin Carboxyhemoglobin Sodium Potassium Chloride Carbon Dioxide BUN Creatinine Glucose POC Glucose 294 H 426 H Calcium Phosphorus Magnesium Ferritin AST Alkaline Phosphatase Lactate Dehydrogenase Troponin T Total Protein Albumin HDL Cholesterol Arterial Blood Glucose 441 H Arterial Blood Ionized Calcium 3.8 L 09/01/20 09/01/20 09/01/20 05:20 10:32 11:45 WBC RBC Hgb Hct MCV MCH RDW Plt Count Lymph % (Auto) Lymph # (Auto) Seg Neutrophils % Nucleated RBC % Seg Neutrophils # D-Dimer ABG pH POC ABG pCO2 POC ABG pO2 ABG HCO3 ABG Base Excess ABG Hemoglobin ABG Oxyhemoglobin ABG Sodium ABG Potassium ABG Chloride ABG Glucose Oxyhemoglobin Carboxyhemoglobin Sodium Potassium Chloride Carbon Dioxide BUN Creatinine Glucose POC Glucose 422 H 227 H 203 H Calcium Phosphorus Magnesium Ferritin AST Alkaline Phosphatase Lactate Dehydrogenase Troponin T Total Protein Albumin HDL Cholesterol Arterial Blood Glucose Arterial Blood Ionized Calcium 09/01/20 09/01/20 09/01/20 13:34 17:11 17:29 WBC RBC Hgb Hct MCV MCH RDW Plt Count Lymph % (Auto) Lymph # (Auto) Seg Neutrophils % Nucleated RBC % Seg Neutrophils # D-Dimer ABG pH POC ABG pCO2 POC ABG pO2 ABG HCO3 ABG Base Excess ABG Hemoglobin ABG Oxyhemoglobin ABG Sodium ABG Potassium ABG Chloride ABG Glucose Oxyhemoglobin Carboxyhemoglobin Sodium Potassium Chloride 94.5 L Carbon Dioxide BUN 29 H Creatinine 3.4 H D Glucose 241 H POC Glucose 212 H 198 H Calcium 8.2 L Phosphorus Magnesium Ferritin AST Alkaline Phosphatase Lactate Dehydrogenase Troponin T Total Protein Albumin HDL Cholesterol Arterial Blood Glucose Arterial Blood Ionized Calcium 09/01/20 09/02/20 09/02/20 21:33 03:08 03:40 WBC RBC Hgb Hct MCV MCH RDW Plt Count Lymph % (Auto) Lymph # (Auto) Seg Neutrophils % Nucleated RBC % Seg Neutrophils # D-Dimer ABG pH 7.506 H POC ABG pCO2 POC ABG pO2 ABG HCO3 29.4 H ABG Base Excess 5.9 H ABG Hemoglobin 8.3 L ABG Oxyhemoglobin ABG Sodium ABG Potassium ABG Chloride ABG Glucose Oxyhemoglobin 94.8 L Carboxyhemoglobin Sodium Potassium Chloride Carbon Dioxide BUN Creatinine Glucose POC Glucose 188 H 179 H Calcium Phosphorus Magnesium Ferritin AST Alkaline Phosphatase Lactate Dehydrogenase Troponin T Total Protein Albumin HDL Cholesterol Arterial Blood Glucose Arterial Blood Ionized Calcium 09/02/20 09/02/20 09/02/20 05:55 07:12 09:28 WBC RBC Hgb Hct MCV MCH RDW Plt Count Lymph % (Auto) Lymph # (Auto) Seg Neutrophils % Nucleated RBC % Seg Neutrophils # D-Dimer ABG pH POC ABG pCO2 POC ABG pO2 ABG HCO3 ABG Base Excess ABG Hemoglobin ABG Oxyhemoglobin ABG Sodium ABG Potassium ABG Chloride ABG Glucose Oxyhemoglobin Carboxyhemoglobin Sodium 136 L Potassium Chloride 91.6 L Carbon Dioxide BUN 52 H Creatinine 5.5 H D Glucose 176 H POC Glucose 185 H 196 H Calcium 7.7 L Phosphorus Magnesium Ferritin AST Alkaline Phosphatase Lactate Dehydrogenase Troponin T Total Protein Albumin HDL Cholesterol Arterial Blood Glucose Arterial Blood Ionized Calcium 09/02/20 09/02/20 09/02/20 11:06 13:03 17:22 WBC RBC Hgb Hct MCV MCH RDW Plt Count Lymph % (Auto) Lymph # (Auto) Seg Neutrophils % Nucleated RBC % Seg Neutrophils # D-Dimer ABG pH POC ABG pCO2 POC ABG pO2 ABG HCO3 ABG Base Excess ABG Hemoglobin ABG Oxyhemoglobin ABG Sodium ABG Potassium ABG Chloride ABG Glucose Oxyhemoglobin Carboxyhemoglobin Sodium Potassium Chloride Carbon Dioxide BUN Creatinine Glucose POC Glucose 224 H 252 H 196 H Calcium Phosphorus Magnesium Ferritin AST Alkaline Phosphatase Lactate Dehydrogenase Troponin T Total Protein Albumin HDL Cholesterol Arterial Blood Glucose Arterial Blood Ionized Calcium 09/02/20 09/03/20 09/03/20 21:13 02:02 04:12 WBC RBC Hgb Hct MCV MCH RDW Plt Count Lymph % (Auto) Lymph # (Auto) Seg Neutrophils % Nucleated RBC % Seg Neutrophils # D-Dimer ABG pH POC ABG pCO2 POC ABG pO2 ABG HCO3 ABG Base Excess ABG Hemoglobin ABG Oxyhemoglobin ABG Sodium ABG Potassium ABG Chloride ABG Glucose Oxyhemoglobin Carboxyhemoglobin Sodium 136 L Potassium Chloride 90.3 L Carbon Dioxide BUN 79 H Creatinine 8.1 H Glucose 223 H POC Glucose 204 H 205 H Calcium 7.1 L Phosphorus Magnesium Ferritin AST Alkaline Phosphatase Lactate Dehydrogenase Troponin T Total Protein Albumin HDL Cholesterol Arterial Blood Glucose Arterial Blood Ionized Calcium 09/03/20 09/03/20 09/03/20 04:12 05:35 09:28 WBC RBC 2.35 L Hgb 8.3 L Hct 25.1 L MCV 107 H MCH 35 H RDW 18.5 H Plt Count 87 L Lymph % (Auto) Lymph # (Auto) Seg Neutrophils % Nucleated RBC % Seg Neutrophils # D-Dimer ABG pH POC ABG pCO2 POC ABG pO2 ABG HCO3 ABG Base Excess ABG Hemoglobin ABG Oxyhemoglobin ABG Sodium ABG Potassium ABG Chloride ABG Glucose Oxyhemoglobin Carboxyhemoglobin Sodium Potassium Chloride Carbon Dioxide BUN Creatinine Glucose POC Glucose 219 H 202 H Calcium Phosphorus Magnesium Ferritin AST Alkaline Phosphatase Lactate Dehydrogenase Troponin T Total Protein Albumin HDL Cholesterol Arterial Blood Glucose Arterial Blood Ionized Calcium 09/03/20 09/03/20 09/03/20 11:36 13:41 16:56 WBC RBC Hgb Hct MCV MCH RDW Plt Count Lymph % (Auto) Lymph # (Auto) Seg Neutrophils % Nucleated RBC % Seg Neutrophils # D-Dimer ABG pH POC ABG pCO2 POC ABG pO2 ABG HCO3 ABG Base Excess ABG Hemoglobin ABG Oxyhemoglobin ABG Sodium ABG Potassium ABG Chloride ABG Glucose Oxyhemoglobin Carboxyhemoglobin Sodium Potassium Chloride Carbon Dioxide BUN Creatinine Glucose POC Glucose 216 H 224 H 298 H Calcium Phosphorus Magnesium Ferritin AST Alkaline Phosphatase Lactate Dehydrogenase Troponin T Total Protein Albumin HDL Cholesterol Arterial Blood Glucose Arterial Blood Ionized Calcium 06/18/21 06/19/21 06/19/21 20:49 00:23 05:28 WBC RBC Hgb Hct MCV MCH RDW Plt Count Lymph % (Auto) Lymph # (Auto) Seg Neutrophils % Nucleated RBC % Seg Neutrophils # D-Dimer ABG pH POC ABG pCO2 POC ABG pO2 ABG HCO3 ABG Base Excess ABG Hemoglobin ABG Oxyhemoglobin ABG Sodium ABG Potassium ABG Chloride ABG Glucose Oxyhemoglobin Carboxyhemoglobin Sodium Potassium Chloride Carbon Dioxide BUN Creatinine Glucose POC Glucose 228 H 228 H 283 H Calcium Phosphorus Magnesium Ferritin AST Alkaline Phosphatase Lactate Dehydrogenase Troponin T Total Protein Albumin HDL Cholesterol Arterial Blood Glucose Arterial Blood Ionized Calcium 09/04/20 09/04/20 09/04/20 10:03 17:39 21:45 WBC RBC Hgb Hct MCV MCH RDW Plt Count Lymph % (Auto) Lymph # (Auto) Seg Neutrophils % Nucleated RBC % Seg Neutrophils # D-Dimer ABG pH POC ABG pCO2 POC ABG pO2 ABG HCO3 ABG Base Excess ABG Hemoglobin ABG Oxyhemoglobin ABG Sodium ABG Potassium ABG Chloride ABG Glucose Oxyhemoglobin Carboxyhemoglobin Sodium Potassium Chloride Carbon Dioxide BUN Creatinine Glucose POC Glucose 159 H 128 H 213 H Calcium Phosphorus Magnesium Ferritin AST Alkaline Phosphatase Lactate Dehydrogenase Troponin T Total Protein Albumin HDL Cholesterol Arterial Blood Glucose Arterial Blood Ionized Calcium 09/05/20 09/05/20 09/05/20 02:04 05:33 09:25 WBC RBC Hgb Hct MCV MCH RDW Plt Count Lymph % (Auto) Lymph # (Auto) Seg Neutrophils % Nucleated RBC % Seg Neutrophils # D-Dimer ABG pH POC ABG pCO2 POC ABG pO2 ABG HCO3 ABG Base Excess ABG Hemoglobin ABG Oxyhemoglobin ABG Sodium ABG Potassium ABG Chloride ABG Glucose Oxyhemoglobin Carboxyhemoglobin Sodium Potassium Chloride Carbon Dioxide BUN Creatinine Glucose POC Glucose 178 H 177 H 199 H Calcium Phosphorus Magnesium Ferritin AST Alkaline Phosphatase Lactate Dehydrogenase Troponin T Total Protein Albumin HDL Cholesterol Arterial Blood Glucose Arterial Blood Ionized Calcium 09/05/20 09/05/20 09/05/20 13:26 16:47 21:40 WBC RBC Hgb Hct MCV MCH RDW Plt Count Lymph % (Auto) Lymph # (Auto) Seg Neutrophils % Nucleated RBC % Seg Neutrophils # D-Dimer ABG pH POC ABG pCO2 POC ABG pO2 ABG HCO3 ABG Base Excess ABG Hemoglobin ABG Oxyhemoglobin ABG Sodium ABG Potassium ABG Chloride ABG Glucose Oxyhemoglobin Carboxyhemoglobin Sodium Potassium Chloride Carbon Dioxide BUN Creatinine Glucose POC Glucose 136 H 141 H 131 H Calcium Phosphorus Magnesium Ferritin AST Alkaline Phosphatase Lactate Dehydrogenase Troponin T Total Protein Albumin HDL Cholesterol Arterial Blood Glucose Arterial Blood Ionized Calcium 09/06/20 09/06/20 09/06/20 03:16 05:20 07:39 WBC RBC Hgb Hct MCV MCH RDW Plt Count Lymph % (Auto) Lymph # (Auto) Seg Neutrophils % Nucleated RBC % Seg Neutrophils # D-Dimer ABG pH POC ABG pCO2 POC ABG pO2 66.8 L ABG HCO3 ABG Base Excess ABG Hemoglobin 9.3 L ABG Oxyhemoglobin 89.9 L ABG Sodium 130.5 L ABG Potassium 5.1 H ABG Chloride 91.0 L ABG Glucose 224 H Oxyhemoglobin Carboxyhemoglobin Sodium Potassium Chloride Carbon Dioxide BUN Creatinine Glucose POC Glucose 112 H 163 H Calcium Phosphorus Magnesium Ferritin AST Alkaline Phosphatase Lactate Dehydrogenase Troponin T Total Protein Albumin HDL Cholesterol Arterial Blood Glucose 224 H Arterial Blood Ionized Calcium 3.8 L Allied health notes reviewed: RT
--- NOTE | 2020-09-06 11:06 | Progress Note ---
Assessment and Plan - Patient Problems (1) Cardiopulmonary arrest Current Visit: Yes Status: Acute Plan to address problem: Patient is hemodynamically stable, remains unresponsive on the vent with severe anoxic encephalopathy. Eventual transfer to hospice. Subjective Date of service: 09/06/20 Principal diagnosis: Cardiac arrest; Ac. hypoxemic resp failure; PNA; ESRD; NSTEMI; Hyperkalemia Interval history: Patient is unresponsive, on the vent. Today, she has a stable sinus rhythm at 71, blood pressure 118 systolic. Objective Vital Signs Temp Pulse Pulse Resp BP Pulse Ox 09/06/20 10:30 71 18 118/44 100 09/06/20 10:15 74 19 120/47 100 09/06/20 10:00 79 24 120/47 100 09/06/20 09:45 85 26 H 144/57 100 09/06/20 09:39 85 144/57 09/06/20 09:34 85 144/57 09/06/20 09:30 88 25 H 144/57 100 09/06/20 09:15 89 24 138/56 100 09/06/20 09:00 89 24 138/56 100 09/06/20 08:45 89 25 H 127/54 100 09/06/20 08:33 98.2 F 09/06/20 08:31 89 25 H 127/54 100 09/06/20 08:15 89 24 137/55 100 09/06/20 08:00 89 24 137/55 100 09/06/20 07:45 88 24 166/80 100 09/06/20 07:42 88 166/80 100 09/06/20 07:31 96 H 28 H 166/80 86 09/06/20 07:15 85 28 H 142/52 85 09/06/20 07:00 86 27 H 142/52 96 09/06/20 06:45 83 19 153/52 100 09/06/20 06:30 83 17 154/51 99 09/06/20 06:15 81 22 153/52 100 09/06/20 06:00 80 22 153/52 100 09/06/20 05:45 79 20 168/57 97 09/06/20 05:30 80 24 168/57 92 09/06/20 05:15 79 25 H 151/51 92 09/06/20 05:00 77 22 151/51 92 09/06/20 04:45 77 20 147/52 94 09/06/20 04:30 76 25 H 147/52 93 09/06/20 04:15 76 24 155/54 93 09/06/20 04:00 75 75 26 H 155/54 93 09/06/20 03:45 75 21 145/54 93 09/06/20 03:36 98.6 F 09/06/20 03:30 74 22 149/52 92 09/06/20 03:15 74 24 145/54 92 09/06/20 03:13 74 145/55 96 09/06/20 03:00 74 25 H 145/54 91 09/06/20 02:45 75 21 165/58 90 09/06/20 02:30 79 20 151/57 91 09/06/20 02:15 85 26 H 165/58 90 09/06/20 02:00 88 28 H 165/58 90 09/06/20 01:45 87 21 158/53 99 09/06/20 01:30 86 21 158/53 99 09/06/20 01:15 86 21 176/53 99 09/06/20 01:00 87 19 176/53 99 09/06/20 00:45 88 21 170/55 98 09/06/20 00:30 88 23 170/55 97 09/06/20 00:15 90 25 H 171/57 96 09/06/20 00:00 98.9 F 89 89 24 171/57 96 09/05/20 23:45 89 25 H 158/53 96 09/05/20 23:30 90 24 149/53 96 09/05/20 23:16 88 158/53 97 09/05/20 23:15 91 H 22 158/53 97 09/05/20 23:01 89 25 H 158/53 98 09/05/20 22:45 90 24 149/51 98 21 22:30 88 18 149/51 98 09/05/20 22:15 91 H 24 158/45 98 09/05/20 22:00 88 24 158/45 98 21 21:45 87 23 156/54 98 06 21:41 88 156/54 09/05/20 21:31 92 H 20 156/54 100 09/05/20 21:15 89 19 164/53 100 06/20/21 21:00 86 22 164/53 99 06/20/21 20:45 87 21 168/49 98 06/20/21 20:30 89 18 168/49 98 06/20/21 20:17 88 23 166/47 99 06/20/21 20:15 91 H 20 166/47 99 06/20/21 20:05 89 18 166/47 99 06/20/21 20:00 99.5 F 91 H 91 H 21 166/47 99 06/20/21 19:45 86 20 160/46 99 06/20/21 19:44 90 160/46 99 06/20/21 19:31 92 H 18 160/46 99 06/20/21 19:15 91 H 19 151/48 99 06/20/21 19:01 91 H 27 H 151/48 98 06/20/21 18:45 90 27 H 166/61 98 06/20/21 18:31 91 H 27 H 166/61 99 06/20/21 18:15 91 H 27 H 160/49 99 06/20/21 18:01 90 27 H 160/49 99 06/20/21 17:45 90 26 H 158/47 99 /20/21 17:31 90 27 H 158/47 99 06/20/21 17:15 90 25 H 164/51 99 06/20/21 17:00 89 26 H 164/51 99 06/20/21 16:45 90 27 H 160/61 99 06/20/21 16:30 91 H 26 H 160/61 100 06/20/21 16:15 89 27 H 153/51 100 06/20/21 16:01 86 25 H 153/51 100 06/20/21 16:00 88 86 25 H 100 06/20/21 15:45 87 27 H 139/52 100 06/20/21 15:31 87 24 139/52 100 06/20/21 15:15 89 28 H 160/49 100 06/20/21 15:01 88 28 H 160/49 100 06/20/21 15:00 88 26 H 154/47 100 06/20/21 14:45 88 28 H 154/47 100 06/20/21 14:31 88 27 H 154/47 100 06/20/21 14:15 88 27 H 153/52 100 06/20/21 14:00 87 27 H 153/52 100 06/20/21 13:45 87 27 H 151/50 100 09/05/20 13:31 87 27 H 151/50 100 09/05/20 13:15 87 26 H 149/48 100 09/05/20 13:00 87 26 H 149/48 99 09/05/20 12:45 87 26 H 145/45 100 09/05/20 12:31 87 25 H 145/45 100 09/05/20 12:15 86 26 H 147/51 09/05/20 12:01 87 26 H 147/51 100 09/05/20 12:00 85 87 26 H 100 09/05/20 11:53 87 26 H 128/51 100 09/05/20 11:45 86 26 H 128/51 99 09/05/20 11:30 89 26 H 128/51 100 09/05/20 11:15 86 27 H 143/59 100 - Physical Examination General: Other (unresponsive on the vent) HEENT: Positive: Other (Pupils fixed) Neck: Positive: neck supple, trachea midline Cardiac: Positive: Reg Rate and Rhythm Lungs: Positive: Decreased Breath Sounds Neuro: Positive: Other (Unresponsive, on the vent) Abdomen: Positive: Soft Skin: Positive: Clear Extremities: Absent: edema - Allied health notes Allied health notes reviewed: nursing
[2020-09-06] MEDS: MEROPENEM/NS 500 MG/50 ML 500 MG/50 ML BAG IV SCH (14:45)
[2020-09-07] MEDS: INSULIN REGULAR, HUMAN 100 UNITS/1 ML SUB-Q SCH ×6 (02:42→21:28)
[2020-09-07 04:42] LABS: Basophils # (Auto) 0.1 K/mm3 (0.0-0.1); Basophils % (Auto) 0.6 % (0.0-1.8); Eosinophils # (Auto) 0.1 K/mm3 (0.0-0.4); Eosinophils % (Auto) 0.6 % (0.0-4.3); Hemoglobin 7.9 gm/dl (10.1-14.3); Lymphocytes # (Auto) 0.7 K/mm3 (1.2-5.4); Lymphocytes % (Auto) 8.5 % (13.4-35.0); Mean Corpuscular HGB Conc 33 % (30-34); Mean Corpuscular Volume 104 fl (79-97); Monocytes # (Auto) 0.8 K/mm3 (0.0-0.8); Platelet Count 116 K/mm3 (140-440); Red Blood Count 2.32 M/mm3 (3.65-5.03); Red Cell Distribution Width 17.7 % (13.2-15.2)
[2020-09-07 05:02] LABS: Calcium 7.9 mg/dL (8.4-10.2)
[2020-09-07] MEDS: HEPARIN 5,000 UNIT/1 ML VIAL SUB-Q SCH ×3 (05:04→21:23)
[2020-09-07] MEDS ORDERED: INSULIN REGULAR, HUMAN 100 UNITS/1 ML IV ONE (05:28)
[2020-09-07] MEDS ORDERED: DEXTROSE 50% IN WATER (25GM) 50 ML SYRINGE IV ONE (05:30)
[2020-09-07] MEDS ORDERED: SODIUM BICARB 8.4% 50 MEQ/50 ML SYRINGE IV ONE (05:31)
[2020-09-07] MEDS ORDERED: SODIUM POLYSTYRENE 15 GM/60 ML ORAL LIQD PO ONE ×2 (05:33→08:52)
[2020-09-07] MEDS: NITROGLYCERIN 0.4 MG PATCH 24HR TD SCH (06:01)
--- NOTE | 2020-09-07 08:21 | Progress Note ---
Assessment and Plan Assessment and plan: 65-year-old female with DM, HTN, HLD, ESRD on HD MWF, multiple myeloma s/p chemotherapy and stem cell transplant and current tobacco abuse was admitted through emergency room s/p out of the hospital cardiac arrest with anoxic encephalopathy, hypertensive emergency, multifocal pneumonia. COVID-19 was r uled out, patient remains intubated on ventilatory support, with very poor prognosis, family is considering hospice have not decided yet. Very poor prognosis --Hyperkalemia, received insulin and dextrose, add calcium gluconate 2 g IV 1 dose, Kayexalate ,nephrology following. Monitor electrolytes --COVID-19, ruled out --S/p out of the hospital cardiac arrest. Status post CPR per ACLS protocol Continue supportive care, cardiology following --Acute hypoxic respiratory failure/intubated on ventilatory support; Continue ventilator support, wean as tolerated, nebulizers, pulmonary following --Global/diffuse anoxic brain injury/encephalopathy as evidenced by MRI; 09/01/2020 Neurology evaluated the patient. Very poor prognosis, recommend palliative care --ESRD on HD; nephrology following, HD per schedule, HD is on hold in view of patient's family considering hospice --Pericardial effusion; stable --Severe cardiomegaly; Continue antifailure medications, diuretics, beta-blockers, BENJAMIN inhibitors Input output monitoring, cardiology following --Type II diabetes mellitus; Accu-Chek sliding scale coverage tube feeding, long-acting insulin --Transaminitis; check LFTs, trend the levels --Hypertension; moderate control Continue current antihypertensives and as needed medications --h/o Multiple myeloma: Patient follows with hematology oncologist at [facility] --Current tobacco abuse; --Possible seizure activity; continue Keppra Seizure precautions --Nutrition; tube feeding per protocol --Full CODE STATUS --DC planning per case management Family considering inpatient hospice admission, Pending decision Consultants. Pulmonary critical care. Cardiology. Nephrology. Neurology. ID evaluations and recommendations Noted and appreciated Tests/imaging studies done so far: -08/29 CXR shows moderate enlargement of cardiac silhouette, diffuse bilateral mixed chest x-ray and airspace disease -08/30 CT C-spine shows no CT evidence of acute bony abnormality the cervical sp ine, biapical airspace disease -08/30 CT head/brain shows no CT evidence of acute intracranial hemorrhage, mild generalized parenchymal atrophy, no evidence of midline shift or mass-effect, moderate size right frontal scalp hematoma -08/30 CTA chest shows no pulmonary embolism, mildly enlarged heart, moderate sized pericardial effusion, diffuse bilateral mixed interstitial and airspace disease with associated atelectasis. -08/30 CT abdomen/pelvis with contrast shows mild fluid-filled distended stomach, dense atherosclerotic calcification of the abdominal aorta, multiple loops of moderately prominent fecalized small bowel, moderate amount of retained stool throughout the colon which may represent possible sequela impaction and constipation, multiple colonic diverticula, several calcified uterine fibroids, bibasilar mixed interstitial and airspace disease -08/30 bilateral lower extremity Doppler ultrasound shows no evidence of DVT in either lower extremity -08/30 CXR shows moderate bilateral lateral pulmonary opacities improvement -08/30 echocardiogram shows a small to moderate sized circumferential pericardial effusion, no tamponade, left ventricle systolic function normal, LVEF 55 to 60%, mild concentric LVH, trace MR, trace TR, no pulmonary hypertension -09/01 MRI brain showed diffuse restricted diffusion in the cerebral cortex consistent with global anoxic brain injury -08/31 EEG with slow wave findings -s/p IV metoprolol and IV nitroglycerin drip -BP monitoring per protocol -PRN hydralazine, PO antihypertensives (Amlodipine, metoprolol, nitroglycerin transdermal) -Empiric antibiotics per infectious disease -08/30 tracheal aspirate pending -S/P calcium gluconate, insulin, D50 for hyperkalemia in the emergency department and repeated on 08/31 -Bowel regimen -Tube feedings, SSI, Accu-Cheks every 6, hypoglycemic protocol, long-acting insulin (titrate as needed) -Trend CBC,BMP Patient placed on Keppra DVT/GI prophylaxis: SCDs to bilateral lower extremities while in bed, PPI, heparin subcu Disposition: ICU, hospice referral made Lines: L SVC permcath, AVF The high probability of a clinically significant, sudden or life threatening deterioration of the [multi] system(s) required my full and direct attention, intervention and personal management. The aggregate critical care time was [40] minutes. This time is in addition to time spent performing reported procedures but includes the following: [x] Data Review and interpretation [x] Patient assessment and monitoring of vital signs [x] Documentation [x] Medication orders and management History Interval history: This is 65-year-old female with diabetes mellitus, hypertension, hyperlipidemia, ESRD on HD MWF via left chest permacath, multiple myeloma s/p chemotherapy and stem cell transplant with right chest port, immature right upper extremity aVF and current tobacco abuse who presented to the emergency department on 08/30 s/p cardiac arrest after being found laying in driveway, unresponsive and in asystole by EMS after being called for shortness of breath. Patient was intubated by EMS and received 3 mg epinephrine, calcium and serum bicarbonate and ROSC was eventually achieved after 10 minutes of resuscitation. Recommend emergency department revealed hyperkalemia, CXR showed moderate enlargement of cardiac silhouette, diffuse bilateral mixed interstitial and airspace disease with considerations to pulmonary edema or multifocal infectious process. Patient was admitted to the hospitalist service s/p cardiac arrest with anoxic encephalopathy, ESRD on HD, hypertensive emergency, multifocal pneumonia and a and has a COVID-19 PUI. CCM, nephrology, neurology infectious disease and cardiology were consulted. 08/30: This morning neurology was consulted, patient noted to have leukocytosis, hyperkalemia, metabolic acidosis and hyperglycemia. Patient had hyperphosphatemia, hypomagnesemia also. Patient had hemodialysis today per nephrology. COVID-19 PCR negative. Patient was in ED holding and admitted to the ICU later during the day. Patient is sedated on fentanyl and propofol. At the time my examination she was assist-control, rate of 28, tidal and 450, 60 PEEP and FiO2 of 60%. 08/31: Patient received hemodialysis however she is hyperkalemia again which was treated with dextrose, insulin and Kionex. Patient received hemodialysis again today per nephrology. Patient continues with with meropenem until blood cultures per infectious disease. MRI brain and EEG pending, lactulose discontinued (which was started due to large stool burden). We will follow up on cultures and BMP. Patient also noted to be hyperglycemic and was started on long acting insulin. Family updated at bedside by nurse ela and Dr. Garces. 09/01: Patient was noted to be hypertensive yesterday evening and today so cardiology will start the patient on a nitroglycerin drip and IV metoprolol. CCM reduced rate. Patient received hemodialysis today and scheduled for MRI brain. Patient noted to be hyperkalemic and follow-up BMP shows a potassium of 4. Patient's MRI brain showed diffuse anoxic brain injury and Dr. Garces updated the family at bedside. 09/02: Patient had an MRI brain yesterday which showed global anoxic brain injury. At the time of my examination patient was on PCV CPAP with tidal volume 450, FiO2 of 30. Patient is hyperglycemic and insulin dosage increased. Family decision has not been made, Dr. Silva and / Dez updated family. Neurology has signed off 09/03: Patient continues to be hypoglycemic and long-acting insulin dosage increased. She is receiving hemodialysis today. [facility] No acute events reported overnight. CM speaking to family re hospice. Cardio changed BP medications to PO. CCM to discuss goals of care and rT to rest daily on AC at night/continue CPAP trials during the day. 09/04: Patient was noted to have possible seizure activity and was given 2 mg of Ativan by CCM. Patient was later hypotensive tensive and received a 250 mL normal saline bolus which was communicated to nephrology. Per nephrology will like to avoid excessive fluid boluses to prevent issues with fluid overload over the weekend. At the time of my exam patient was on assist control tidal line 450, rate of 12, PEEP of 6 and 25% FiO2. Patient noted to be hyper glycemic and long-acting insulin was changed. 09/05: Patient continues to be unresponsive, Keppra was added for possible seizure disorder yesterday. No family at the bedside, patient to go to hospice most likely on Sunday. 09/07/2020; awaiting hospice placement, pending family's decision. Hyper kalemia, insulin and dextrose, IV calcium gluconate and Kayexalate Very poor prognosis, full CODE STATUS History Interval history: I have seen and examined the patient at the bedside in ICU this morning Patient's chart and medications reviewed Hospitalist Physical - Constitutional Vitals: Temp Pulse Resp BP Pulse Ox 99.5 F 78 18 142/47 100 09/07/20 07:09 09/07/20 08:00 09/07/20 08:00 09/07/20 08:00 09/07/20 08:00 General appearance: Present: no acute distress, other (Intubated on vent) - EENT Eyes: Present: PERRL, EOM intact - Neck Neck: Present: supple, normal ROM - Respiratory Respiratory effort: normal Respiratory: bilateral: diminished, rhonchi, negative: rales, wheezing - Cardiovascular Rhythm: regular Heart Sounds: Present: S1 & S2 - Extremities Extremities: no ischemia, No edema - Abdominal General gastrointestinal: soft, non-tender, non-distended, normal bowel sounds - Integumentary Integumentary: Present: clear, warm - Psychiatric Psychiatric: appropriate mood/affect, cooperative - Neurologic Neurologic: CNII-XII intact, moves all extremities HEART Score - HEART Score EKG: Normal Age: > 65 Troponin: Troponin T 0.085 ng/mL (0.00-0.029) H 08/30/20 00:15 Troponin: < normal limit - Critical Actions Critical Actions: 0-3 pts:0.9-1.7%risk of adverse cardiac event.Candidate for discharge Results - Labs CBC & Chem 7: 09/07/20 04:12 09/07/20 04:12 Labs: Laboratory Last Values WBC 8.7 K/mm3 (4.5-11.0) 09/07/20 04:12 RBC 2.32 M/mm3 (3.65-5.03) L 09/07/20 04:12 Hgb 7.9 gm/dl (10.1-14.3) L 09/07/20 04:12 Hct 24.0 % (30.3-42.9) L 09/07/20 04:12 MCV 104 fl (79-97) H 09/07/20 04:12 MCH 34 pg (28-32) H 09/07/20 04:12 MCHC 33 % (30-34) 09/07/20 04:12 RDW 17.7 % (13.2-15.2) H 09/07/20 04:12 Plt Count 116 K/mm3 (140-440) L 09/07/20 04:12 Lymph % (Auto) 8.5 % (13.4-35.0) L 09/07/20 04:12 Russell % (Auto) 9.0 % (0.0-7.3) H 09/07/20 04:12 Eos % (Auto) 0.6 % (0.0-4.3) 09/07/20 04:12 Baso % (Auto) 0.6 % (0.0-1.8) 09/07/20 04:12 Lymph # (Auto) 0.7 K/mm3 (1.2-5.4) L 09/07/20 04:12 Russell # (Auto) 0.8 K/mm3 (0.0-0.8) 09/07/20 04:12 Eos # (Auto) 0.1 K/mm3 (0.0-0.4) 09/07/20 04:12 Baso # (Auto) 0.1 K/mm3 (0.0-0.1) 09/07/20 04:12 Add Manual Diff Complete 08/30/20 00:15 Total Counted 100 08/30/20 00:15 Seg Neutrophils % 81.3 % (40.0-70.0) H 09/07/20 04:12 Seg Neuts % (Manual) 57.0 % (40.0-70.0) 08/30/20 00:15 Band Neutrophils % 1.0 % 08/30/20 00:15 Lymphocytes % (Manual) 34.0 % (13.4-35.0) 08/30/20 00:15 Monocytes % (Manual) 5.0 % (0.0-7.3) 08/30/20 00:15 Eosinophils % (Manual) 3.0 % (0.0-4.3) 08/30/20 00:15 Nucleated RBC % 1.0 % (0.0-0.9) H 08/30/20 00:15 Seg Neutrophils # 7.1 K/mm3 (1.8-7.7) 09/07/20 04:12 Seg Neutrophils # Man 5.6 K/mm3 (1.8-7.7) 08/30/20 00:15 Band Neutrophils # 0.1 K/mm3 08/30/20 00:15 Lymphocytes # (Manual) 3.3 K/mm3 (1.2-5.4) 08/30/20 00:15 Abs React Lymphs (Man) 0.0 K/mm3 08/30/20 00:15 Monocytes # (Manual) 0.5 K/mm3 (0.0-0.8) 08/30/20 00:15 Eosinophils # (Manual) 0.3 K/mm3 (0.0-0.4) 08/30/20 00:15 Basophils # (Manual) 0.0 K/mm3 (0.0-0.1) 08/30/20 00:15 Metamyelocytes # 0.0 K/mm3 08/30/20 00:15 Myelocytes # 0.0 K/mm3 08/30/20 00:15 Promyelocytes # 0.0 K/mm3 08/30/20 00:15 Blast Cells # 0.0 K/mm3 08/30/20 00:15 WBC Morphology Not Reportable 08/30/20 00:15 Hypersegmented Neuts Not Reportable 08/30/20 00:15 Hyposegmented Neuts Not Reportable 08/30/20 00:15 Hypogranular Neuts Not Reportable 08/30/20 00:15 Smudge Cells Not Reportable 08/30/20 00:15 Toxic Granulation Not Reportable 08/30/20 00:15 Toxic Vacuolation Not Reportable 08/30/20 00:15 Dohle Bodies Not Reportable 08/30/20 00:15 Pelger-Huet Anomaly Not Reportable 08/30/20 00:15 Lolita Rods Not Reportable 08/30/20 00:15 Platelet Estimate Consistent w auto 08/30/20 00:15 Clumped Platelets Not Reportable 08/30/20 00:15 Plt Clumps, EDTA Not Reportable 08/30/20 00:15 Large Platelets Not Reportable 08/30/20 00:15 Giant Platelets Not Reportable 08/30/20 00:15 Platelet Satelliting Not Reportable 08/30/20 00:15 Plt Morphology Comment Not Reportable 08/30/20 00:15 RBC Morphology Not Reportable 08/30/20 00:15 Dimorphic RBCs Not Reportable 08/30/20 00:15 Polychromasia Not Reportable 08/30/20 00:15 Hypochromasia Not Reportable 08/30/20 00:15 Poikilocytosis Not Reportable 08/30/20 00:15 Anisocytosis 1+ 08/30/20 00:15 Microcytosis Not Reportable 08/30/20 00:15 Macrocytosis Not Reportable 08/30/20 00:15 Spherocytes Not Reportable 08/30/20 00:15 Pappenheimer Bodies Not Reportable 08/30/20 00:15 Sickle Cells Not Reportable 08/30/20 00:15 Target Cells Not Reportable 08/30/20 00:15 Tear Drop Cells Not Reportable 08/30/20 00:15 Ovalocytes Not Reportable 08/30/20 00:15 Helmet Cells Not Reportable 08/30/20 00:15 [place] Bodies Not Reportable 08/30/20 00:15 [place] Rings Not Reportable 08/30/20 00:15 Jigar Cells Not Reportable 08/30/20 00:15 Bite Cells Not Reportable 08/30/20 00:15 Crenated Cell Not Reportable 08/30/20 00:15 Elliptocytes Not Reportable 08/30/20 00:15 Acanthocytes (Spur) Not Reportable 08/30/20 00:15 Rouleaux Not Reportable 08/30/20 00:15 Hemoglobin C Crystals Not Reportable 08/30/20 00:15 Schistocytes Not Reportable 08/30/20 00:15 Malaria parasites Not Reportable 08/30/20 00:15 Maurice Bodies Not Reportable 08/30/20 00:15 Hem Pathologist Commnt No 08/30/20 00:15 PT 12.8 Sec. (12.2-14.9) 08/31/20 05:45 INR 0.90 (0.87-1.13) 08/31/20 05:45 D-Dimer > 85842 ng/mlDDU (0-234) H 08/30/20 03:10 ABG pH 7.413 (7.320-7.450) 09/07/20 04:00 POC ABG pCO2 37.4 mmHg (32.0-48.0) 09/07/20 04:00 ABG pCO2 38.0 mm Hg 09/02/20 03:40 POC ABG pO2 62.2 mmHg (83-108) L 09/07/20 04:00 ABG pO2 83.1 mm Hg (80.0-90.0) 09/02/20 03:40 POC ABG HCO3 23.3 09/07/20 04:00 ABG HCO3 29.4 mmol/L (20.0-26.0) H 09/02/20 03:40 ABG O2 Saturation 89.0 (0-100) 09/07/20 04:00 ABG O2 Content 11.2 (0.0-44) 09/02/20 03:40 POC ABG Base Excess -1.1 09/07/20 04:00 ABG Base Excess 5.9 mmol/L (-2.0-3.0) H 09/02/20 03:40 ABG Hemoglobin 8.0 (12.0-17.5) L 09/07/20 04:00 ABG Oxyhemoglobin 87.8 (94-98) L 09/07/20 04:00 ABG Carboxyhemoglobin 1.9 % (0.0-5.0) 09/02/20 03:40 ABG Methemoglobin 0.1 (0.0-1.5) 09/07/20 04:00 ABG Sodium 127.3 mmol/L (136.0-145.0) L 09/07/20 04:00 ABG Potassium 5.7 mmol/L (3.40-4.50) H 09/07/20 04:00 ABG Chloride 89.0 mmol/L (98-107) L 09/07/20 04:00 ABG Glucose 232 mg/dL (65-95) H 09/07/20 04:00 Oxyhemoglobin 94.8 % (95.0-99.0) L 09/02/20 03:40 Carboxyhemoglobin 1.2 (0.5-1.5) 09/07/20 04:00 FiO2 30 % 09/02/20 03:40 FiO2 % 45.0 09/07/20 04:00 Sodium 133 mmol/L (137-145) L 09/07/20 04:12 Potassium 6.2 mmol/L (3.6-5.0) H* D 09/07/20 04:12 Chloride 85.8 mmol/L (98-107) L 09/07/20 04:12 Carbon Dioxide 23 mmol/L (22-30) 09/07/20 04:12 Anion Gap 30 mmol/L 09/07/20 04:12 BUN 132 mg/dL (7-17) H 09/07/20 04:12 Creatinine 9.8 mg/dL (0.6-1.2) H 09/07/20 04:12 Estimated GFR 5 ml/min 09/07/20 04:12 BUN/Creatinine Ratio 13 % 09/07/20 04:12 Glucose 227 mg/dL (65-100) H 09/07/20 04:12 POC Glucose 281 mg/dL (70-105) H 09/07/20 07:49 Calcium 7.9 mg/dL (8.4-10.2) L 09/07/20 04:12 Phosphorus 11.50 mg/dL (2.5-4.5) H 08/30/20 00:15 Magnesium 3.80 mg/dL (1.7-2.3) H 08/30/20 00:15 Ferritin 830.0 ng/mL (10.0-200.0) H 08/30/20 03:10 Total Bilirubin 0.40 mg/dL (0.1-1.2) 08/30/20 15:03 AST 68 units/L (5-40) H 08/30/20 15:03 ALT 41 units/L (7-56) 08/30/20 15:03 Alkaline Phosphatase 364 units/L (35-129) H 08/30/20 15:03 Lactate Dehydrogenase 400 units/L (91-180) H 08/30/20 03:10 Troponin T 0.085 ng/mL (0.00-0.029) H 08/30/20 00:15 C-Reactive Protein 0.20 mg/dL (0.00-1.30) 08/30/20 03:10 Total Protein 6.4 g/dL (6.3-8.2) 08/30/20 15:03 Albumin 3.7 g/dL (3.9-5) L 08/30/20 15:03 Albumin/Globulin Ratio 1.4 % 08/30/20 15:03 Triglycerides 61 mg/dL (2-149) 08/30/20 00:15 Cholesterol 150 mg/dL (50-199) 08/30/20 00:15 LDL Cholesterol Direct 71 mg/dL (50-130) 08/30/20 00:15 HDL Cholesterol 66 mg/dL (40-59) H 08/30/20 00:15 Cholesterol/HDL Ratio 2.27 % 08/30/20 00:15 Procalcitonin 4.16 ng/mL (<0.15) 08/30/20 03:10 Arterial Blood Glucose 232 mg/dL (65-95) H 09/07/20 04:00 Arterial Blood Ionized Calcium 3.7 mg/dL (4.6-5.3) L 09/07/20 04:00 Coronavirus (PCR) Negative (Negative) 08/30/20 Unknown Hepatitis A IgM Ab Non-reactive (NonReactive) 08/30/20 07:35 Hep Bs Antigen Non-reactive (Negative) 08/30/20 07:35 Hep B Core IgM Ab Non-reactive (NonReactive) 08/30/20 07:35 Hepatitis C Antibody Non-reactive (NonReactive) 08/30/20 07:35 Johns/IV: Voiding Method Incontinent Active Medications - Current Medications Current Medications: Generic Name Dose Route Start Last Admin Trade Name Freq PRN Reason Stop Dose Admin Acetaminophen 650 mg 09/01/20 00:27 09/04/20 04:34 Acetaminophen 325 Mg/10.15 Ml Oral Liqd Unit Dose FEEDTUBE 650 mg Q6H PRN Administration Non Cardiac Pain or Temp>100.5 Amlodipine Besylate 10 mg 09/03/20 11:00 09/06/20 09:39 Amlodipine 10 Mg Tab PO 10 mg QDAY ANIYAH Administration Lipase/Protease/Amylase 1 each 08/30/20 14:27 Lipase 10,500/Protease 25,000/Amylase 43,750 (Units) Dr Duran FEEDTUBE PRN PRN For Clogged Feeding Tube Dextrose 50 ml 08/30/20 19:48 Dextrose 50% In Water (25gm) 50 Ml Syringe IV Q30MIN PRN Hypoglycemia Protocol Famotidine 20 mg 09/02/20 10:00 09/06/20 09:34 Famotidine 20 Mg Tab PO 20 mg DAILY ANIYAH Administration Heparin Sodium (Porcine) 5,000 unit 08/30/20 06:00 09/07/20 05:04 Heparin 5,000 Unit/1 Ml Vial SUB-Q 5,000 unit Q8HR ANIYAH Administration Hydralazine HCl 10 mg 08/31/20 18:14 09/04/20 04:34 Hydralazine 20 Mg/1 Ml Inj IV 10 mg Q4HR PRN Administration Hypertension Hydrophilic Ointment 1 applic 08/30/20 14:05 Lip Therapy Vaseline TP Q2HR PRN Dry Lips Sodium Chloride 100 mls @ 999 mls/hr 08/30/20 09:00 Nacl 0.9% IV ARMIDA PRN Hypotension Insulin Glargine 30 units 09/03/20 10:00 09/06/20 09:38 Insulin Glargine 100 Units/Ml SUB-Q 30 units DAILY ANIYAH Administration Insulin Human Lispro 5 unit 09/04/20 08:00 09/06/20 20:18 Insulin Lispro 100 Unit/Ml SUB-Q 5 unit TID ANIYAH Administration Insulin Human Regular 0 units 09/01/20 10:00 09/07/20 05:48 Insulin Regular, Human 100 Units/1 Ml SUB-Q 4 units Q4HR ANIYAH Administration Protocol Levetiracetam 750 mg 09/04/20 22:00 09/06/20 22:23 Levetiracetam 500 Mg/5 Ml Oral Liqd PO 750 mg BID ANIYAH Administration Magnesium Hydroxide 30 ml 08/30/20 04:41 Magnesium Hydroxide (Mom) Oral Liqd Udc PO Q4H PRN Constipation Metoprolol Tartrate 50 mg 09/03/20 11:00 09/06/20 22:24 Metoprolol Tartrate 50 Mg Tab PO 50 mg BID ANIYAH Administration Multi-Ingred Cream/Lotion/Oil/Oint 1 applic 08/30/20 14:05 08/31/20 01:17 Mineral Oil/Petrolatum, White Ophth Oint 3.5 Gm OU 1 applic Q4HR PRN Administration Dry Eye(s) Nitroglycerin 0.4 mg 09/04/20 06:00 09/07/20 06:01 Nitroglycerin 0.4 Mg Patch 24hr TD Not Given QDAY@0600 [facility] Ondansetron HCl 4 mg 08/30/20 04:41 Ondansetron 4 Mg/2 Ml Inj IV Q8H PRN Nausea And Vomiting Senna/Docusate Sodium 1 tab 08/30/20 22:00 09/06/20 22:24 Sennosides/Docusate Sodium 8.6/50 Mg Tab FEEDTUBE 1 tab BID ANIYAH Administration Simple Syrup 15 ml 08/30/20 14:27 Simple Syrup 15 Ml FEEDTUBE PRN PRN Hypoglycemia Simple Syrup 30 ml 08/30/20 14:27 Simple Syrup 15 Ml FEEDTUBE PRN PRN Hypoglycemia Sodium Bicarbonate 325 mg 08/30/20 14:27 09/05/20 08:26 Sodium Bicarbonate 325 Mg Tab FEEDTUBE 325 mg PRN PRN Administration For Clogged Feeding Tube Sodium Chloride 10 ml 08/30/20 10:00 09/06/20 22:25 Sodium Chloride 0.9% 10 Ml Flush Syringe IV 10 ml BID ANIYAH Administration Sodium Chloride 10 ml 08/30/20 04:41 Sodium Chloride 0.9% 10 Ml Flush Syringe IV PRN PRN LINE FLUSH Nutrition/Malnutrition Assess - Dietary Evaluation Nutrition/Malnutrition Findings: Nutrition Notes Start: 08/30/20 07:40 Freq: Status: Active Protocol: Document 09/06/20 13:24 [facility] (Rec: 09/06/20 13:25 [facility] [id number]) Nutrition Notes Initial or Follow up Brief Note Current Diet TF - Nepro at 35ml/hr Subjective/Other Information Pt was tolerating TF at goal rate on 09/03. She remains on vent support; possible transfer to hospice. Nutrition Intervention Follow-Up By: 09/10/20 Additional Comments F/U: stable TF, vent status, wt
[2020-09-07] MEDS: INSULIN LISPRO 100 UNIT/ML SUB-Q SCH ×3 (08:24→20:20)
[2020-09-07] MEDS ORDERED: CALCIUM GLUCONATE 2,000 MG in SODIUM CHLORIDE 0.9% 100 ML IV ONE (08:26)
[2020-09-07] MEDS: levETIRAcetam 500 MG/5 ML ORAL LIQD PO SCH ×2 (09:23→21:22)
[2020-09-07] MEDS: SENNOSIDES/DOCUSATE SODIUM 8.6/50 MG TAB FEEDTUBE SCH ×2 (09:23→21:22)
[2020-09-07] MEDS: INSULIN GLARGINE 100 UNITS/ML SUB-Q SCH (09:23)
[2020-09-07] MEDS: METOPROLOL TARTRATE 50 MG TAB PO SCH ×2 (09:24→21:22)
[2020-09-07] MEDS: FAMOTIDINE 20 MG TAB PO SCH (09:24)
[2020-09-07] MEDS: amLODIPine 10 MG TAB PO SCH (09:24)
--- NOTE | 2020-09-07 10:30 | Progress Note ---
Assessment and Plan Out of hospital cardiopulmonary arrest Brain MRI is consistent with anoxic brain injury normal LVEF 55-60% by echocardiogram no evidence of DVT by LE duplex End-stage renal disease on hemodialysis Hx of multiple myeloma s/p chemotherapy Hypertension Diabetes Anemia Supportive cardiac management. Subjective Date of service: 09/07/20 Principal diagnosis: Cardiac arrest; Ac. hypoxemic resp failure; PNA; ESRD; NSTEMI; Hyperkalemia Interval history: Patient remains unresponsive on the vent with severe anoxic encephalopathy. Objective Vital Signs Temp Pulse Pulse Resp BP Pulse Ox 09/07/20 10:00 79 22 161/48 100 09/07/20 09:46 78 14 139/48 100 09/07/20 09:30 78 18 139/48 100 09/07/20 09:24 78 138/47 09/07/20 09:16 78 18 138/47 100 09/07/20 09:00 79 18 138/47 99 09/07/20 08:46 78 17 142/49 99 09/07/20 08:35 78 6 L 142/49 100 09/07/20 08:30 79 16 142/49 100 09/07/20 08:16 78 16 142/47 99 09/07/20 08:00 78 78 18 142/47 100 09/07/20 07:46 78 16 138/48 100 09/07/20 07:30 78 18 138/48 98 09/07/20 07:16 76 17 140/47 99 09/07/20 07:09 99.5 F 09/07/20 07:00 77 18 140/47 98 09/07/20 06:46 76 17 145/48 98 09/07/20 06:30 76 21 145/48 98 09/07/20 06:16 77 21 136/47 97 09/07/20 06:01 75 144/45 09/07/20 06:00 75 22 144/45 97 09/07/20 05:46 73 22 140/45 97 09/07/20 05:30 73 22 136/47 97 09/07/20 05:16 72 18 140/45 98 09/07/20 05:00 73 21 140/45 100 09/07/20 04:46 72 18 147/54 99 09/07/20 04:30 73 24 147/54 99 09/07/20 04:16 74 16 147/54 100 06/22/21 04:08 73 147/54 99 06/22/21 04:00 99.2 F 73 73 24 147/54 99 06/22/21 03:46 73 23 140/51 99 06/22/21 03:30 71 22 146/53 99 06/22/21 03:16 71 23 140/51 98 06/22/21 03:00 71 16 140/51 99 06/22/21 02:46 70 21 132/52 97 06/22/21 02:30 69 23 137/49 98 06/22/21 02:16 68 24 132/52 97 06/22/21 02:00 67 18 132/52 98 06/22/21 01:46 65 13 134/52 100 06/22/21 01:30 66 16 134/52 100 06/22/21 01:16 64 14 128/49 100 06/22/21 01:00 64 18 128/49 96 06/22/21 00:46 63 18 124/51 97 06/22/21 00:30 63 19 124/47 96 06/22/21 00:16 61 12 124/51 100 06/22/21 00:15 63 124/51 99 06/22/21 00:06 99.0 F 06/22/21 00:00 63 63 14 124/51 98 06/21/21 23:46 63 13 128/51 99 06/21/21 23:30 61 12 121/48 100 06/21/21 23:16 61 12 128/51 100 06/21/21 23:00 64 12 128/51 100 06/21/21 22:46 74 12 138/54 100 06/21/21 22:30 73 13 138/54 100 06/21/21 22:24 73 133/51 06/21/21 22:16 72 14 133/51 100 06/21/21 22:00 72 13 133/51 100 06/21/21 21:50 73 15 126/48 100 06/21/21 21:46 73 17 126/48 100 06/21/21 21:30 73 17 126/48 100 06/21/21 21:16 73 15 121/49 100 06/21/21 21:00 73 19 131/50 100 06/21/21 20:46 73 17 131/50 100 06/21/21 20:30 73 15 131/50 100 06/21/21 20:16 73 14 145/53 100 09/06/20 20:00 73 73 12 145/53 100 09/06/20 19:55 98.3 F 09/06/20 19:52 74 140/51 100 09/06/20 19:46 73 16 140/51 100 09/06/20 19:30 73 15 140/51 100 09/06/20 19:16 73 16 135/49 100 09/06/20 19:00 72 22 135/49 100 09/06/20 18:46 72 23 129/48 100 09/06/20 18:30 72 23 129/48 100 09/06/20 18:16 72 22 134/47 100 09/06/20 18:00 74 134/47 100 09/06/20 17:46 73 16 122/43 100 09/06/20 17:30 72 17 122/43 100 09/06/20 17:16 73 18 125/46 100 09/06/20 17:00 72 18 125/46 100 09/06/20 16:46 72 17 120/43 100 09/06/20 16:30 71 18 120/43 100 09/06/20 16:16 72 17 127/45 100 09/06/20 16:00 99.2 F 72 17 127/45 100 09/06/20 15:46 72 18 124/44 100 09/06/20 15:30 72 21 124/44 100 09/06/20 15:16 72 20 117/49 100 09/06/20 15:05 72 117/49 100 09/06/20 15:00 88 18 117/49 100 09/06/20 14:46 89 16 116/48 100 09/06/20 14:30 88 18 116/48 100 09/06/20 14:16 89 18 117/43 100 09/06/20 14:00 70 16 117/43 100 09/06/20 13:46 70 17 115/44 100 09/06/20 13:30 71 18 112/43 100 09/06/20 13:15 70 17 112/43 100 09/06/20 13:00 70 17 112/43 100 09/06/20 12:45 71 18 111/43 100 09/06/20 12:30 70 17 112/43 100 09/06/20 12:15 70 21 110/42 100 06/21/21 12:00 98.6 F 71 17 110/42 100 09/06/20 11:45 70 19 113/44 100 09/06/20 11:30 69 19 113/44 100 09/06/20 11:16 69 116/44 100 09/06/20 11:15 69 19 116/44 100 09/06/20 11:00 70 16 116/44 100 09/06/20 10:45 71 17 118/44 100 09/06/20 10:30 71 18 118/44 100 - Physical Examination General: Other (unresponsive on the vent) HEENT: Positive: Other (Pupils fixed) Cardiac: Positive: Reg Rate and Rhythm Neuro: Positive: Other (Unresponsive, on the vent) - Labs and Meds CBC 09/07/20 Range/Units 04:12 WBC 8.7 (4.5-11.0) K/mm3 RBC 2.32 L (3.65-5.03) M/mm3 Hgb 7.9 L (10.1-14.3) gm/dl Hct 24.0 L (30.3-42.9) % Plt Count 116 L (140-440) K/mm3 Lymph # (Auto) 0.7 L (1.2-5.4) K/mm3 Ogle # (Auto) 0.8 (0.0-0.8) K/mm3 Eos # (Auto) 0.1 (0.0-0.4) K/mm3 Baso # (Auto) 0.1 (0.0-0.1) K/mm3 Comprehensive Metabolic Panel 09/07/20 Range/Units 04:12 Sodium 133 L (137-145) mmol/L Potassium 6.2 H* D (3.6-5.0) mmol/L Chloride 85.8 L (98-107) mmol/L Carbon Dioxide 23 (22-30) mmol/L BUN 132 H (7-17) mg/dL Creatinine 9.8 H (0.6-1.2) mg/dL Glucose 227 H (65-100) mg/dL Calcium 7.9 L (8.4-10.2) mg/dL - Allied health notes Allied health notes reviewed: nursing
--- NOTE | 2020-09-07 10:35 | Progress Note ---
Assessment and Plan - Patient Problems (1) Anoxic encephalopathy Current Visit: Yes Status: Acute Plan to address problem: In the setting of cardiopulmonary arrest. No changes in her neurological status, which remains poor at this time. Pending hospice evaluation/transition. Per primary notes, it seems that she is likely to be transitioned to hospice today. (2) Cardiac arrest Current Visit: Yes Status: Acute Plan to address problem: s/p cardiac arrest suffered at home, with unfortunately severe anoxic encephalopathy/brain injury suffered without improvement in neurologic status. She is off all pressors and sedation at this time. Cardiology input reviewed and appreciated. Overall prognosis remains poor. (3) End-stage renal disease on hemodialysis Current Visit: Yes Status: Chronic Plan to address problem: Patient was placed on MWF HD schedule. At this point, given her overall poor prognosis, and notes from primary indicating likely transition to hospice, will hold HD at this time. (4) Hyperkalemia Current Visit: Yes Status: Acute Plan to address problem: we will give a dose of Kayexalate today as we are holding off on further hemodialysis given her overall poor grim prognosis and likely need for transition to hospice. (5) Multifocal pneumonia Current Visit: Yes Status: Acute Plan to address problem: Please ensure that antibiotics are dosed appropriately for her decreased renal function. (6) Pulmonary edema Current Visit: Yes Status: Acute Plan to address problem: Will monitor closely. She remains intubated, without any acute changes in vent settings at this time. Subjective Date of service: 09/07/20 Principal diagnosis: Cardiac arrest; Ac. hypoxemic resp failure; PNA; ESRD; NSTEMI; Hyperkalemia Interval history: no acute changes. He remains intubated with severe anoxic encephalopathy. No changes in overall neurologic function. Objective - Vital Signs Vital signs: Vital Signs - 12hr 09/06/20 09/06/20 09/06/20 22:46 23:00 23:16 Temperature Pulse Rate 74 64 61 Pulse Rate [ From Monitor] Respiratory 12 12 12 Rate Blood Pressure 138/54 128/51 128/51 O2 Sat by Pulse 100 100 100 Oximetry 09/06/20 09/06/20 09/07/20 23:30 23:46 00:00 Temperature Pulse Rate 61 63 63 Pulse Rate [ 63 From Monitor] Respiratory 12 13 14 Rate Blood Pressure 121/48 128/51 124/51 O2 Sat by Pulse 100 99 98 Oximetry 09/07/20 09/07/20 09/07/20 00:06 00:15 00:16 Temperature 99.0 F Pulse Rate 63 61 Pulse Rate [ From Monitor] Respiratory 12 Rate Blood Pressure 124/51 124/51 O2 Sat by Pulse 99 100 Oximetry 09/07/20 09/07/20 09/07/20 00:30 00:46 01:00 Temperature Pulse Rate 63 63 64 Pulse Rate [ From Monitor] Respiratory 19 18 18 Rate Blood Pressure 124/47 124/51 128/49 O2 Sat by Pulse 96 97 96 Oximetry 09/07/20 09/07/20 09/07/20 01:16 01:30 01:46 Temperature Pulse Rate 64 66 65 Pulse Rate [ From Monitor] Respiratory 14 16 13 Rate Blood Pressure 128/49 134/52 134/52 O2 Sat by Pulse 100 100 100 Oximetry 09/07/20 09/07/20 09/07/20 02:00 02:16 02:30 Temperature Pulse Rate 67 68 69 Pulse Rate [ From Monitor] Respiratory 18 24 23 Rate Blood Pressure 132/52 132/52 137/49 O2 Sat by Pulse 98 97 98 Oximetry 09/07/20 09/07/20 09/07/20 02:46 03:00 03:16 Temperature Pulse Rate 70 71 71 Pulse Rate [ From Monitor] Respiratory 21 16 23 Rate Blood Pressure 132/52 140/51 140/51 O2 Sat by Pulse 97 99 98 Oximetry 09/07/20 09/07/20 09/07/20 03:30 03:46 04:00 Temperature 99.2 F Pulse Rate 71 73 73 Pulse Rate [ 73 From Monitor] Respiratory 22 23 24 Rate Blood Pressure 146/53 140/51 147/54 O2 Sat by Pulse 99 99 99 Oximetry 09/07/20 09/07/20 09/07/20 04:08 04:16 04:30 Temperature Pulse Rate 73 74 73 Pulse Rate [ From Monitor] Respiratory 16 24 Rate Blood Pressure 147/54 147/54 147/54 O2 Sat by Pulse 99 100 99 Oximetry 09/07/20 09/07/20 09/07/20 04:46 05:00 05:16 Temperature Pulse Rate 72 73 72 Pulse Rate [ From Monitor] Respiratory 18 21 18 Rate Blood Pressure 147/54 140/45 140/45 O2 Sat by Pulse 99 100 98 Oximetry 09/07/20 09/07/2021 05:30 05:46 06:00 Temperature Pulse Rate 73 73 75 Pulse Rate [ From Monitor] Respiratory 22 22 Rate Blood Pressure 136/47 140/45 144/45 O2 Sat by Pulse 97 97 97 Oximetry 09/07/20 09/07/20 09/07/20 06:01 06:16 06:30 Temperature Pulse Rate 75 77 76 Pulse Rate [ From Monitor] Respiratory 21 Rate Blood Pressure 144/45 136/47 145/48 O2 Sat by Pulse 97 98 Oximetry 09/07/20 09/07/20 09/07/20 06:46 07:00 07:09 Temperature 99.5 F Pulse Rate 76 77 Pulse Rate [ From Monitor] Respiratory 17 18 Rate Blood Pressure 145/48 140/47 O2 Sat by Pulse 98 98 Oximetry 09/07/20 09/07/20 09/07/20 07:16 07:30 07:46 Temperature Pulse Rate 76 78 78 Pulse Rate [ From Monitor] Respiratory 17 18 16 Rate Blood Pressure 140/47 138/48 138/48 O2 Sat by Pulse 99 98 100 Oximetry 09/07/20 09/07/20 09/07/20 08:00 08:16 08:30 Temperature Pulse Rate 78 78 79 Pulse Rate [ 78 From Monitor] Respiratory 18 16 16 Rate Blood Pressure 142/47 142/47 142/49 O2 Sat by Pulse 100 99 100 Oximetry 09/07/20 09/07/20 09/07/20 08:35 08:46 09:00 Temperature Pulse Rate 78 78 79 Pulse Rate [ From Monitor] Respiratory 6 L 17 18 Rate Blood Pressure 142/49 142/49 138/47 O2 Sat by Pulse 100 99 99 Oximetry 09/07/20 09/07/20 09/07/20 09:16 09:24 09:30 Temperature Pulse Rate 78 78 78 Pulse Rate [ From Monitor] Respiratory 18 18 Rate Blood Pressure 138/47 138/47 139/48 O2 Sat by Pulse 100 100 Oximetry 09/07/20 09/07/20 09:46 10:00 Temperature Pulse Rate 78 79 Pulse Rate [ From Monitor] Respiratory 14 22 Rate Blood Pressure 139/48 161/48 O2 Sat by Pulse 100 100 Oximetry - General Appearance General appearance: intubated, frail EENT: ATNC Neck: no JVD Respiratory: Present: Clear to Ascultation Cardiology: regular Gastrointestinal: normal Musculoskeletal: deferred - Lab 09/07/20 04:12 09/07/20 04:12 Most recent lab results ABG pH 7.413 (7.320-7.450) 09/07/20 04:00 ABG pCO2 38.0 mm Hg 09/02/20 03:40 ABG pO2 83.1 mm Hg (80.0-90.0) 09/02/20 03:40 ABG HCO3 29.4 mmol/L (20.0-26.0) H 09/02/20 03:40 ABG O2 Saturation 89.0 (0-100) 09/07/20 04:00 Calcium 7.9 mg/dL (8.4-10.2) L 09/07/20 04:12 Phosphorus 11.50 mg/dL (2.5-4.5) H 08/30/20 00:15 Magnesium 3.80 mg/dL (1.7-2.3) H 08/30/20 00:15 - Allied health notes Allied health notes reviewed: nursing Medications & Allergies - Medications Allergies/Adverse Reactions: Allergies No Known Allergies Allergy (Verified 08/30/20 22:43) Home Medications: Home Medications Medication Instructions Recorded Confirmed Last Taken Type Acyclovir [Zovirax Tab] 400 mg PO BID 08/30/20 08/30/20 Unknown History Amlodipine Besylate 10 mg PO DAILY 08/30/20 08/30/20 Unknown History Furosemide [Lasix] 40 mg PO DAILY 08/30/20 08/30/20 Unknown History Gabapentin [Neurontin] 600 mg PO BID 08/30/20 08/30/20 Unknown History Imdur ER 30 mg PO DAILY 08/30/20 08/30/20 Unknown History Losartan Potassium 50 mg PO BID 08/30/20 08/30/20 Unknown History Losartan/Hydrochlorothiazide 1 each PO DAILY 08/30/20 08/30/20 Unknown History [Losartan-Hctz 100-25 mg Tab] Metoprolol Tartrate 25 mg PO BID 08/30/20 08/30/20 Unknown History Mirtazapine [Remeron] 30 mg PO HS 08/30/20 08/30/20 Unknown History Sevelamer Carbonate [Renvela] 800 mg PO TIDWM 08/30/20 08/30/20 Unknown History Vit B Complx C/Folic Acid/Zinc 0.8 mg PO DAILY 08/30/20 08/30/20 Unknown History [Dialyvite 800-Zinc 15 Tab] Zolpidem Tartrate [Edluar SUBL] 5 mg PO QHS PRN 08/30/20 08/30/20 Unknown History calcitrioL 0.5 mcg PO DAILY 08/30/20 08/30/20 Unknown History Active Medications: Generic Name Dose Route Start Last Admin Trade Name Freq PRN Reason Stop Dose Admin Acetaminophen 650 mg 09/01/20 00:27 09/04/20 04:34 Acetaminophen 325 Mg/10.15 Ml Oral Liqd Unit Dose FEEDTUBE 650 mg Q6H PRN Administration Non Cardiac Pain or Temp>100.5 Amlodipine Besylate 10 mg 09/03/20 11:00 09/07/20 09:24 Amlodipine 10 Mg Tab PO 10 mg QDAY ANIYAH Administration Lipase/Protease/Amylase 1 each 08/30/20 14:27 Lipase 10,500/Protease 25,000/Amylase 43,750 (Units) Dr Duran FEEDTUBE PRN PRN For Clogged Feeding Tube Dextrose 50 ml 08/30/20 19:48 Dextrose 50% In Water (25gm) 50 Ml Syringe IV Q30MIN PRN Hypoglycemia Protocol Famotidine 20 mg 09/02/20 10:00 09/07/20 09:24 Famotidine 20 Mg Tab PO 20 mg DAILY ANIYAH Administration Heparin Sodium (Porcine) 5,000 unit 08/30/20 06:00 09/07/20 05:04 Heparin 5,000 Unit/1 Ml Vial SUB-Q 5,000 unit Q8HR ANIYAH Administration Hydralazine HCl 10 mg 08/31/20 18:14 09/04/20 04:34 Hydralazine 20 Mg/1 Ml Inj IV 10 mg Q4HR PRN Administration Hypertension Hydrophilic Ointment 1 applic 08/30/20 14:05 Lip Therapy Vaseline TP Q2HR PRN Dry Lips Sodium Chloride 100 mls @ 999 mls/hr 08/30/20 09:00 Nacl 0.9% IV ARMIDA PRN Hypotension Insulin Glargine 30 units 09/03/20 10:00 09/07/20 09:23 Insulin Glargine 100 Units/Ml SUB-Q 30 units DAILY ANIYAH Administration Insulin Human Lispro 5 unit 09/04/20 08:00 09/07/20 08:24 Insulin Lispro 100 Unit/Ml SUB-Q 5 unit TID ANIYAH Administration Insulin Human Regular 0 units 09/01/20 10:00 09/07/20 09:24 Insulin Regular, Human 100 Units/1 Ml SUB-Q 4 units Q4HR ANIYAH Administration Protocol Levetiracetam 750 mg 09/04/20 22:00 09/07/20 09:23 Levetiracetam 500 Mg/5 Ml Oral Liqd PO 750 mg BID ANIYAH Administration Magnesium Hydroxide 30 ml 08/30/20 04:41 Magnesium Hydroxide (Mom) Oral Liqd Udc PO Q4H PRN Constipation Metoprolol Tartrate 50 mg 09/03/20 11:00 09/07/20 09:24 Metoprolol Tartrate 50 Mg Tab PO 50 mg BID ANIYAH Administration Multi-Ingred Cream/Lotion/Oil/Oint 1 applic 08/30/20 14:05 08/31/20 01:17 Mineral Oil/Petrolatum, White Ophth Oint 3.5 Gm OU 1 applic Q4HR PRN Administration Dry Eye(s) Nitroglycerin 0.4 mg 09/04/20 06:00 09/07/20 06:01 Nitroglycerin 0.4 Mg Patch 24hr TD Not Given QDAY@0600 [facility] Ondansetron HCl 4 mg 08/30/20 04:41 Ondansetron 4 Mg/2 Ml Inj IV Q8H PRN Nausea And Vomiting Senna/Docusate Sodium 1 tab 08/30/20 22:00 09/07/20 09:23 Sennosides/Docusate Sodium 8.6/50 Mg Tab FEEDTUBE 1 tab BID ANIYAH Administration Simple Syrup 15 ml 08/30/20 14:27 Simple Syrup 15 Ml FEEDTUBE PRN PRN Hypoglycemia Simple Syrup 30 ml 08/30/20 14:27 Simple Syrup 15 Ml FEEDTUBE PRN PRN Hypoglycemia Sodium Bicarbonate 325 mg 08/30/20 14:27 09/05/20 08:26 Sodium Bicarbonate 325 Mg Tab FEEDTUBE 325 mg PRN PRN Administration For Clogged Feeding Tube Sodium Chloride 10 ml 08/30/20 10:00 09/07/20 09:25 Sodium Chloride 0.9% 10 Ml Flush Syringe IV 10 ml BID ANIYAH Administration Sodium Chloride 10 ml 08/30/20 04:41 Sodium Chloride 0.9% 10 Ml Flush Syringe IV PRN PRN LINE FLUSH
--- NOTE | 2020-09-07 11:29 | Progress Note ---
Assessment and Plan Cardiac arrest with return of spontaneous circulation Acute hypoxemic respiratory failure Bilateral pneumonia, possibly aspiration Bilateral pulmonary edema End-stage renal disease, on dialysis NSTEMI Severe hyperkalemia History of multiple myeloma History of hypertension Anemia that is microcytic Elevated serum troponin - will reach out to her daughter - her is to cisit today also - AMS remains rate limiting step to safe extubation - completed Meropenem dosing - continue care as below; - continue Daily SAT and SBT assessment as tolerated - continue to wean supplemental oxygen for target O2 sat's > 90% acutely - VAP bundle addressed - continue lung protective strategies - continue bronchodilators with pulmonary hygiene per RT - wean per pulmonary driven protocols otherwise - continue HD/UF for toxin and volume clearance - avoid nephrotoxins, renally dose all medications - continue accuchecks with glycemic control per SSI (While critically ill target blood glucose of 140-180 mg/dL; avoid hypoglycemia) - sedation prn for target RASS 0 to -1 - continue to avoid benzodiazepine's, reduce the possibility of delirium - complete AB's per ID rec's - prn analgesia per CPOT score - Maintenance of sleep-wake cycle, avoid delirium - continue enteral nutritional support at goal rate as tolerated - G.I. & VTE prophylaxis - PT/OT/ROM exercises - continue mobility protocols for pressure ulcer prophylaxis - Monitor hemodynamics closely - continue other care per attending / other consultants - discharge planning ongoing concurrently COVID SPECIFIC INTERVENTIONS - COVID PCR negative .... Re-evaluate in am & prn CONDITION: CRITICAL PROGNOSIS: GUARDED CODE STATUS: FULL CODE The high probability of a clinically significant, sudden or life-threatening deterioration of the [respiratory, cardiovascular, hematologic, renal & neurologic] system(s) required my full and direct attention, intervention and p ersonal management. The aggregate critical care time was [35] minutes without overlap. Time includes spent on; [x] Data Review and interpretation [x] Patient assessment and monitoring of vital signs [x] Documentation [x] Medication orders and management Subjective Date of service: 09/07/20 Principal diagnosis: Cardiac arrest; Ac. hypoxemic resp failure; PNA; ESRD; NSTEMI; Hyperkalemia Interval history: Patient is seen today for: Cardiac arrest with ROSC; Acute hypoxemic respiratory failure; Aspiration Pneumonia; ESRD on dialysis; NSTEMI; Hyperkalemia Seen and examined at bedside; 24hour events reviewed; nursing and respiratory care staff consulted; no adverse overnight events reported to me; resting peacefully in bed; remains on MVS; AMS is persistent; her daughter is undecided about hospice transfer and would like further neurologic testing if possible Objective Vital Signs - 12hr 09/06/20 09/06/20 09/07/20 23:30 23:46 00:00 Temperature Pulse Rate 61 63 63 Pulse Rate [ 63 From Monitor] Respiratory 12 13 14 Rate Blood Pressure 121/48 128/51 124/51 O2 Sat by Pulse 100 99 98 Oximetry 09/07/20 09/07/20 09/07/20 00:06 00:15 00:16 Temperature 99.0 F Pulse Rate 63 61 Pulse Rate [ From Monitor] Respiratory 12 Rate Blood Pressure 124/51 124/51 O2 Sat by Pulse 99 100 Oximetry 09/07/20 09/07/20 09/07/20 00:30 00:46 01:00 Temperature Pulse Rate 63 63 64 Pulse Rate [ From Monitor] Respiratory 19 18 18 Rate Blood Pressure 124/47 124/51 128/49 O2 Sat by Pulse 96 97 96 Oximetry 09/07/20 09/07/20 09/07/20 01:16 01:30 01:46 Temperature Pulse Rate 64 66 65 Pulse Rate [ From Monitor] Respiratory 14 16 13 Rate Blood Pressure 128/49 134/52 134/52 O2 Sat by Pulse 100 100 100 Oximetry 09/07/20 09/07/20 09/07/20 02:00 02:16 02:30 Temperature Pulse Rate 67 68 69 Pulse Rate [ From Monitor] Respiratory 18 24 23 Rate Blood Pressure 132/52 132/52 137/49 O2 Sat by Pulse 98 97 98 Oximetry 09/07/20 09/07/20 09/07/20 02:46 03:00 03:16 Temperature Pulse Rate 70 71 71 Pulse Rate [ From Monitor] Respiratory 21 16 23 Rate Blood Pressure 132/52 140/51 140/51 O2 Sat by Pulse 97 99 98 Oximetry 09/07/20 09/07/20 09/07/20 03:30 03:46 04:00 Temperature 99.2 F Pulse Rate 71 73 73 Pulse Rate [ 73 From Monitor] Respiratory 22 23 24 Rate Blood Pressure 146/53 140/51 147/54 O2 Sat by Pulse 99 99 99 Oximetry 09/07/20 09/07/20 09/07/20 04:08 04:16 04:30 Temperature Pulse Rate 73 74 73 Pulse Rate [ From Monitor] Respiratory 16 24 Rate Blood Pressure 147/54 147/54 147/54 O2 Sat by Pulse 99 100 99 Oximetry 09/07/20 09/07/20 09/07/20 04:46 05:00 05:16 Temperature Pulse Rate 72 73 72 Pulse Rate [ From Monitor] Respiratory 18 21 18 Rate Blood Pressure 147/54 140/45 140/45 O2 Sat by Pulse 99 100 98 Oximetry 09/07/20 09/07/20 09/07/20 05:30 05:46 06:00 Temperature Pulse Rate 73 73 75 Pulse Rate [ From Monitor] Respiratory 22 22 22 Rate Blood Pressure 136/47 140/45 144/45 O2 Sat by Pulse 97 97 97 Oximetry 09/07/20 09/07/20 09/07/20 06:01 06:16 06:30 Temperature Pulse Rate 75 77 76 Pulse Rate [ From Monitor] Respiratory 21 21 Rate Blood Pressure 144/45 136/47 145/48 O2 Sat by Pulse 97 98 Oximetry 09/07/20 09/07/20 09/07/20 06:46 07:00 07:09 Temperature 99.5 F Pulse Rate 76 77 Pulse Rate [ From Monitor] Respiratory 17 18 Rate Blood Pressure 145/48 140/47 O2 Sat by Pulse 98 98 Oximetry 09/07/20 09/07/20 09/07/20 07:16 07:30 07:46 Temperature Pulse Rate 76 78 78 Pulse Rate [ From Monitor] Respiratory 17 18 16 Rate Blood Pressure 140/47 138/48 138/48 O2 Sat by Pulse 99 98 100 Oximetry 09/07/20 09/07/20 09/07/20 08:00 08:16 08:30 Temperature Pulse Rate 78 78 79 Pulse Rate [ 78 From Monitor] Respiratory 18 16 16 Rate Blood Pressure 142/47 142/47 142/49 O2 Sat by Pulse 100 99 100 Oximetry 09/07/20 09/07/20 09/07/20 08:35 08:46 09:00 Temperature Pulse Rate 78 78 79 Pulse Rate [ From Monitor] Respiratory 6 L 17 18 Rate Blood Pressure 142/49 142/49 138/47 O2 Sat by Pulse 100 99 99 Oximetry 09/07/20 09/07/20 09/07/20 09:16 09:24 09:30 Temperature Pulse Rate 78 78 78 Pulse Rate [ From Monitor] Respiratory 18 18 Rate Blood Pressure 138/47 138/47 139/48 O2 Sat by Pulse 100 100 Oximetry 09/07/20 09/07/20 09:46 10:00 Temperature Pulse Rate 78 79 Pulse Rate [ From Monitor] Respiratory 14 22 Rate Blood Pressure 139/48 161/48 O2 Sat by Pulse 100 100 Oximetry Constitutional: appears uncomfortable, other (elderly female with mildly increased respiratory effort at rest on MVS) Eyes: non-icteric ENT: oropharynx moist, other (ETT 23 cm COLLEEN) Neck: supple, no lymphadenopathy, no JVD Effort: mildly labored Ascultation: Bilateral: rhonchi Percussion: Bilateral: not dull Cardiovascular: regular rate and rhythm, other (S1,S2) Gastrointestinal: normoactive bowel sounds, soft, non-tender Integumentary: normal Extremities: no cyanosis, pulses normal, no ischemia or petechiae Neurologic: pupils equal and round, other (unresponsive, not obeying commands) Psychiatric: other (unable to assess re: AMS) CBC and BMP: 09/07/20 04:12 09/07/20 15:35 ABG, PT/INR, D-dimer: ABG ABG pH 7.413 (7.320-7.450) 09/07/20 04:00 POC ABG pCO2 37.4 mmHg (32.0-48.0) 09/07/20 04:00 ABG pCO2 38.0 mm Hg 09/02/20 03:40 POC ABG pO2 62.2 mmHg (83-108) L 09/07/20 04:00 ABG pO2 83.1 mm Hg (80.0-90.0) 09/02/20 03:40 POC ABG HCO3 23.3 09/07/20 04:00 ABG O2 Saturation 89.0 (0-100) 09/07/20 04:00 PT/INR, D-dimer PT 12.8 Sec. (12.2-14.9) 08/31/20 05:45 INR 0.90 (0.87-1.13) 08/31/20 05:45 D-Dimer > 06393 ng/mlDDU (0-234) H 08/30/20 03:10 Abnormal lab findings: Abnormal Labs 08/30/20 08/30/20 08/30/20 00:14 00:15 00:15 WBC RBC 2.83 L Hgb 9.8 L Hct MCV 112 H MCH 35 H RDW 19.9 H Plt Count 95 L Lymph % (Auto) [place] % (Auto) Lymph # (Auto) Seg Neutrophils % Nucleated RBC % 1.0 H Seg Neutrophils # D-Dimer ABG pH 7.199 L POC ABG pCO2 49.3 H POC ABG pO2 ABG HCO3 ABG Base Excess ABG Hemoglobin 11.9 L ABG Oxyhemoglobin 93.0 L ABG Sodium ABG Potassium 6.9 H ABG Chloride ABG Glucose 158 H Oxyhemoglobin Carboxyhemoglobin 2.8 H Sodium Potassium 7.0 H* Chloride Carbon Dioxide 18 L BUN 68 H Creatinine 8.3 H Glucose 174 H POC Glucose Calcium Phosphorus Magnesium Ferritin AST 68 H Alkaline Phosphatase 414 H Lactate Dehydrogenase Troponin T 0.085 H Total Protein 5.6 L Albumin 3.4 L HDL Cholesterol 66 H Arterial Blood Glucose 158 H Arterial Blood Ionized Calcium 08/30/20 08/30/20 08/30/20 00:15 00:15 03:10 WBC RBC Hgb Hct MCV MCH RDW Plt Count Lymph % (Auto) [place] % (Auto) Lymph # (Auto) Seg Neutrophils % Nucleated RBC % Seg Neutrophils # D-Dimer 6083.16 H > 04896 H ABG pH POC ABG pCO2 POC ABG pO2 ABG HCO3 ABG Base Excess ABG Hemoglobin ABG Oxyhemoglobin ABG Sodium ABG Potassium ABG Chloride ABG Glucose Oxyhemoglobin Carboxyhemoglobin Sodium Potassium Chloride Carbon Dioxide BUN Creatinine Glucose POC Glucose Calcium Phosphorus 11.50 H Magnesium 3.80 H Ferritin AST Alkaline Phosphatase Lactate Dehydrogenase Troponin T Total Protein Albumin HDL Cholesterol Arterial Blood Glucose Arterial Blood Ionized Calcium 08/30/20 08/30/20 08/30/20 03:10 03:10 04:49 WBC RBC Hgb Hct MCV MCH RDW Plt Count Lymph % (Auto) [place] % (Auto) Lymph # (Auto) Seg Neutrophils % Nucleated RBC % Seg Neutrophils # D-Dimer ABG pH POC ABG pCO2 POC ABG pO2 ABG HCO3 ABG Base Excess ABG Hemoglobin 10.8 L ABG Oxyhemoglobin ABG Sodium ABG Potassium 6.7 H ABG Chloride ABG Glucose 137 H Oxyhemoglobin Carboxyhemoglobin Sodium Potassium Chloride Carbon Dioxide BUN Creatinine Glucose 126 H POC Glucose Calcium Phosphorus Magnesium Ferritin 830.0 H AST Alkaline Phosphatase Lactate Dehydrogenase 400 H Troponin T Total Protein Albumin HDL Cholesterol Arterial Blood Glucose 137 H Arterial Blood Ionized Calcium 4.5 L 08/30/20 08/30/20 08/30/20 07:13 15:03 15:03 WBC 17.2 H RBC 3.23 L Hgb Hct MCV 108 H MCH 34 H RDW 19.4 H Plt Count 90 L Lymph % (Auto) [place] % (Auto) Lymph # (Auto) Seg Neutrophils % Nucleated RBC % Seg Neutrophils # D-Dimer ABG pH POC ABG pCO2 POC ABG pO2 ABG HCO3 ABG Base Excess ABG Hemoglobin ABG Oxyhemoglobin ABG Sodium ABG Potassium ABG Chloride ABG Glucose Oxyhemoglobin Carboxyhemoglobin Sodium Potassium 8.2 H* 6.5 H* D Chloride 96.7 L Carbon Dioxide 21 L BUN 52 H Creatinine 5.7 H Glucose 220 H POC Glucose Calcium Phosphorus Magnesium Ferritin AST 68 H Alkaline Phosphatase 364 H Lactate Dehydrogenase Troponin T Total Protein Albumin 3.7 L HDL Cholesterol Arterial Blood Glucose Arterial Blood Ionized Calcium 08/30/20 08/30/20 08/31/20 17:27 21:03 04:07 WBC RBC Hgb Hct MCV MCH RDW Plt Count Lymph % (Auto) [place] % (Auto) Lymph # (Auto) Seg Neutrophils % Nucleated RBC % Seg Neutrophils # D-Dimer ABG pH 7.498 H POC ABG pCO2 27.9 L POC ABG pO2 126.9 H ABG HCO3 ABG Base Excess ABG Hemoglobin 10.1 L ABG Oxyhemoglobin 98.3 H ABG Sodium 134.3 L ABG Potassium 6.7 H ABG Chloride ABG Glucose 261 H Oxyhemoglobin Carboxyhemoglobin 0.1 L Sodium Potassium Chloride Carbon Dioxide BUN Creatinine Glucose POC Glucose 223 H 230 H Calcium Phosphorus Magnesium Ferritin AST Alkaline Phosphatase Lactate Dehydrogenase Troponin T Total Protein Albumin HDL Cholesterol Arterial Blood Glucose 261 H Arterial Blood Ionized Calcium 3.6 L 08/31/20 08/31/20 08/31/20 05:01 05:45 05:45 WBC 13.1 H RBC 2.83 L Hgb 9.6 L Hct 29.8 L MCV 105 H MCH 34 H RDW 18.9 H Plt Count 88 L Lymph % (Auto) 6.9 L [place] % (Auto) Lymph # (Auto) 0.9 L Seg Neutrophils % 87.8 H Nucleated RBC % Seg Neutrophils # 11.5 H D-Dimer ABG pH POC ABG pCO2 POC ABG pO2 ABG HCO3 ABG Base Excess ABG Hemoglobin ABG Oxyhemoglobin ABG Sodium ABG Potassium ABG Chloride ABG Glucose Oxyhemoglobin Carboxyhemoglobin Sodium Potassium 7.1 H* Chloride 96.7 L Carbon Dioxide BUN 74 H Creatinine 7.0 H Glucose 254 H POC Glucose 256 H Calcium 7.6 L Phosphorus Magnesium Ferritin AST Alkaline Phosphatase Lactate Dehydrogenase Troponin T Total Protein Albumin HDL Cholesterol Arterial Blood Glucose Arterial Blood Ionized Calcium 08/31/20 08/31/20 09/01/20 11:38 23:31 03:13 WBC RBC Hgb Hct MCV MCH RDW Plt Count Lymph % (Auto) [place] % (Auto) Lymph # (Auto) Seg Neutrophils % Nucleated RBC % Seg Neutrophils # D-Dimer ABG pH 7.519 H POC ABG pCO2 POC ABG pO2 ABG HCO3 ABG Base Excess ABG Hemoglobin 9.3 L ABG Oxyhemoglobin ABG Sodium 134.7 L ABG Potassium ABG Chloride 94.0 L ABG Glucose 441 H Oxyhemoglobin Carboxyhemoglobin Sodium Potassium Chloride Carbon Dioxide BUN Creatinine Glucose POC Glucose 294 H 426 H Calcium Phosphorus Magnesium Ferritin AST Alkaline Phosphatase Lactate Dehydrogenase Troponin T Total Protein Albumin HDL Cholesterol Arterial Blood Glucose 441 H Arterial Blood Ionized Calcium 3.8 L 09/01/20 09/01/20 09/01/20 05:20 10:32 11:45 WBC RBC Hgb Hct MCV MCH RDW Plt Count Lymph % (Auto) [place] % (Auto) Lymph # (Auto) Seg Neutrophils % Nucleated RBC % Seg Neutrophils # D-Dimer ABG pH POC ABG pCO2 POC ABG pO2 ABG HCO3 ABG Base Excess ABG Hemoglobin ABG Oxyhemoglobin ABG Sodium ABG Potassium ABG Chloride ABG Glucose Oxyhemoglobin Carboxyhemoglobin Sodium Potassium Chloride Carbon Dioxide BUN Creatinine Glucose POC Glucose 422 H 227 H 203 H Calcium Phosphorus Magnesium Ferritin AST Alkaline Phosphatase Lactate Dehydrogenase Troponin T Total Protein Albumin HDL Cholesterol Arterial Blood Glucose Arterial Blood Ionized Calcium 09/01/20 09/01/20 09/01/20 13:34 17:11 17:29 WBC RBC Hgb Hct MCV MCH RDW Plt Count Lymph % (Auto) [place] % (Auto) Lymph # (Auto) Seg Neutrophils % Nucleated RBC % Seg Neutrophils # D-Dimer ABG pH POC ABG pCO2 POC ABG pO2 ABG HCO3 ABG Base Excess ABG Hemoglobin ABG Oxyhemoglobin ABG Sodium ABG Potassium ABG Chloride ABG Glucose Oxyhemoglobin Carboxyhemoglobin Sodium Potassium Chloride 94.5 L Carbon Dioxide BUN 29 H Creatinine 3.4 H D Glucose 241 H POC Glucose 212 H 198 H Calcium 8.2 L Phosphorus Magnesium Ferritin AST Alkaline Phosphatase Lactate Dehydrogenase Troponin T Total Protein Albumin HDL Cholesterol Arterial Blood Glucose Arterial Blood Ionized Calcium 09/01/20 09/02/20 09/02/20 21:33 03:08 03:40 WBC RBC Hgb Hct MCV MCH RDW Plt Count Lymph % (Auto) [place] % (Auto) Lymph # (Auto) Seg Neutrophils % Nucleated RBC % Seg Neutrophils # D-Dimer ABG pH 7.506 H POC ABG pCO2 POC ABG pO2 ABG HCO3 29.4 H ABG Base Excess 5.9 H ABG Hemoglobin 8.3 L ABG Oxyhemoglobin ABG Sodium ABG Potassium ABG Chloride ABG Glucose Oxyhemoglobin 94.8 L Carboxyhemoglobin Sodium Potassium Chloride Carbon Dioxide BUN Creatinine Glucose POC Glucose 188 H 179 H Calcium Phosphorus Magnesium Ferritin AST Alkaline Phosphatase Lactate Dehydrogenase Troponin T Total Protein Albumin HDL Cholesterol Arterial Blood Glucose Arterial Blood Ionized Calcium 09/02/20 09/02/20 09/02/20 05:55 07:12 09:28 WBC RBC Hgb Hct MCV MCH RDW Plt Count Lymph % (Auto) [place] % (Auto) Lymph # (Auto) Seg Neutrophils % Nucleated RBC % Seg Neutrophils # D-Dimer ABG pH POC ABG pCO2 POC ABG pO2 ABG HCO3 ABG Base Excess ABG Hemoglobin ABG Oxyhemoglobin ABG Sodium ABG Potassium ABG Chloride ABG Glucose Oxyhemoglobin Carboxyhemoglobin Sodium 136 L Potassium Chloride 91.6 L Carbon Dioxide BUN 52 H Creatinine 5.5 H D Glucose 176 H POC Glucose 185 H 196 H Calcium 7.7 L Phosphorus Magnesium Ferritin AST Alkaline Phosphatase Lactate Dehydrogenase Troponin T Total Protein Albumin HDL Cholesterol Arterial Blood Glucose Arterial Blood Ionized Calcium 09/02/20 09/02/20 09/02/20 11:06 13:03 17:22 WBC RBC Hgb Hct MCV MCH RDW Plt Count Lymph % (Auto) [place] % (Auto) Lymph # (Auto) Seg Neutrophils % Nucleated RBC % Seg Neutrophils # D-Dimer ABG pH POC ABG pCO2 POC ABG pO2 ABG HCO3 ABG Base Excess ABG Hemoglobin ABG Oxyhemoglobin ABG Sodium ABG Potassium ABG Chloride ABG Glucose Oxyhemoglobin Carboxyhemoglobin Sodium Potassium Chloride Carbon Dioxide BUN Creatinine Glucose POC Glucose 224 H 252 H 196 H Calcium Phosphorus Magnesium Ferritin AST Alkaline Phosphatase Lactate Dehydrogenase Troponin T Total Protein Albumin HDL Cholesterol Arterial Blood Glucose Arterial Blood Ionized Calcium 09/02/20 09/03/20 09/03/20 21:13 02:02 04:12 WBC RBC Hgb Hct MCV MCH RDW Plt Count Lymph % (Auto) [place] % (Auto) Lymph # (Auto) Seg Neutrophils % Nucleated RBC % Seg Neutrophils # D-Dimer ABG pH POC ABG pCO2 POC ABG pO2 ABG HCO3 ABG Base Excess ABG Hemoglobin ABG Oxyhemoglobin ABG Sodium ABG Potassium ABG Chloride ABG Glucose Oxyhemoglobin Carboxyhemoglobin Sodium 136 L Potassium Chloride 90.3 L Carbon Dioxide BUN 79 H Creatinine 8.1 H Glucose 223 H POC Glucose 204 H 205 H Calcium 7.1 L Phosphorus Magnesium Ferritin AST Alkaline Phosphatase Lactate Dehydrogenase Troponin T Total Protein Albumin HDL Cholesterol Arterial Blood Glucose Arterial Blood Ionized Calcium 09/03/20 09/03/20 09/03/20 04:12 05:35 09:28 WBC RBC 2.35 L Hgb 8.3 L Hct 25.1 L MCV 107 H MCH 35 H RDW 18.5 H Plt Count 87 L Lymph % (Auto) [place] % (Auto) Lymph # (Auto) Seg Neutrophils % Nucleated RBC % Seg Neutrophils # D-Dimer ABG pH POC ABG pCO2 POC ABG pO2 ABG HCO3 ABG Base Excess ABG Hemoglobin ABG Oxyhemoglobin ABG Sodium ABG Potassium ABG Chloride ABG Glucose Oxyhemoglobin Carboxyhemoglobin Sodium Potassium Chloride Carbon Dioxide BUN Creatinine Glucose POC Glucose 219 H 202 H Calcium Phosphorus Magnesium Ferritin AST Alkaline Phosphatase Lactate Dehydrogenase Troponin T Total Protein Albumin HDL Cholesterol Arterial Blood Glucose Arterial Blood Ionized Calcium 09/03/20 09/03/20 09/03/20 11:36 13:41 16:56 WBC RBC Hgb Hct MCV MCH RDW Plt Count Lymph % (Auto) [place] % (Auto) Lymph # (Auto) Seg Neutrophils % Nucleated RBC % Seg Neutrophils # D-Dimer ABG pH POC ABG pCO2 POC ABG pO2 ABG HCO3 ABG Base Excess ABG Hemoglobin ABG Oxyhemoglobin ABG Sodium ABG Potassium ABG Chloride ABG Glucose Oxyhemoglobin Carboxyhemoglobin Sodium Potassium Chloride Carbon Dioxide BUN Creatinine Glucose POC Glucose 216 H 224 H 298 H Calcium Phosphorus Magnesium Ferritin AST Alkaline Phosphatase Lactate Dehydrogenase Troponin T Total Protein Albumin HDL Cholesterol Arterial Blood Glucose Arterial Blood Ionized Calcium 09/03/20 09/04/20 09/04/20 20:49 00:23 05:28 WBC RBC Hgb Hct MCV MCH RDW Plt Count Lymph % (Auto) [place] % (Auto) Lymph # (Auto) Seg Neutrophils % Nucleated RBC % Seg Neutrophils # D-Dimer ABG pH POC ABG pCO2 POC ABG pO2 ABG HCO3 ABG Base Excess ABG Hemoglobin ABG Oxyhemoglobin ABG Sodium ABG Potassium ABG Chloride ABG Glucose Oxyhemoglobin Carboxyhemoglobin Sodium Potassium Chloride Carbon Dioxide BUN Creatinine Glucose POC Glucose 228 H 228 H 283 H Calcium Phosphorus Magnesium Ferritin AST Alkaline Phosphatase Lactate Dehydrogenase Troponin T Total Protein Albumin HDL Cholesterol Arterial Blood Glucose Arterial Blood Ionized Calcium 09/04/20 09/04/20 09/04/20 10:03 17:39 21:45 WBC RBC Hgb Hct MCV MCH RDW Plt Count Lymph % (Auto) [place] % (Auto) Lymph # (Auto) Seg Neutrophils % Nucleated RBC % Seg Neutrophils # D-Dimer ABG pH POC ABG pCO2 POC ABG pO2 ABG HCO3 ABG Base Excess ABG Hemoglobin ABG Oxyhemoglobin ABG Sodium ABG Potassium ABG Chloride ABG Glucose Oxyhemoglobin Carboxyhemoglobin Sodium Potassium Chloride Carbon Dioxide BUN Creatinine Glucose POC Glucose 159 H 128 H 213 H Calcium Phosphorus Magnesium Ferritin AST Alkaline Phosphatase Lactate Dehydrogenase Troponin T Total Protein Albumin HDL Cholesterol Arterial Blood Glucose Arterial Blood Ionized Calcium 09/05/20 09/05/20 09/05/20 02:04 05:33 09:25 WBC RBC Hgb Hct MCV MCH RDW Plt Count Lymph % (Auto) [place] % (Auto) Lymph # (Auto) Seg Neutrophils % Nucleated RBC % Seg Neutrophils # D-Dimer ABG pH POC ABG pCO2 POC ABG pO2 ABG HCO3 ABG Base Excess ABG Hemoglobin ABG Oxyhemoglobin ABG Sodium ABG Potassium ABG Chloride ABG Glucose Oxyhemoglobin Carboxyhemoglobin Sodium Potassium Chloride Carbon Dioxide BUN Creatinine Glucose POC Glucose 178 H 177 H 199 H Calcium Phosphorus Magnesium Ferritin AST Alkaline Phosphatase Lactate Dehydrogenase Troponin T Total Protein Albumin HDL Cholesterol Arterial Blood Glucose Arterial Blood Ionized Calcium 09/05/20 09/05/20 09/05/20 13:26 16:47 21:40 WBC RBC Hgb Hct MCV MCH RDW Plt Count Lymph % (Auto) [place] % (Auto) Lymph # (Auto) Seg Neutrophils % Nucleated RBC % Seg Neutrophils # D-Dimer ABG pH POC ABG pCO2 POC ABG pO2 ABG HCO3 ABG Base Excess ABG Hemoglobin ABG Oxyhemoglobin ABG Sodium ABG Potassium ABG Chloride ABG Glucose Oxyhemoglobin Carboxyhemoglobin Sodium Potassium Chloride Carbon Dioxide BUN Creatinine Glucose POC Glucose 136 H 141 H 131 H Calcium Phosphorus Magnesium Ferritin AST Alkaline Phosphatase Lactate Dehydrogenase Troponin T Total Protein Albumin HDL Cholesterol Arterial Blood Glucose Arterial Blood Ionized Calcium 09/06/20 09/06/20 09/06/20 03:16 05:20 07:39 WBC RBC Hgb Hct MCV MCH RDW Plt Count Lymph % (Auto) [place] % (Auto) Lymph # (Auto) Seg Neutrophils % Nucleated RBC % Seg Neutrophils # D-Dimer ABG pH POC ABG pCO2 POC ABG pO2 66.8 L ABG HCO3 ABG Base Excess ABG Hemoglobin 9.3 L ABG Oxyhemoglobin 89.9 L ABG Sodium 130.5 L ABG Potassium 5.1 H ABG Chloride 91.0 L ABG Glucose 224 H Oxyhemoglobin Carboxyhemoglobin Sodium Potassium Chloride Carbon Dioxide BUN Creatinine Glucose POC Glucose 112 H 163 H Calcium Phosphorus Magnesium Ferritin AST Alkaline Phosphatase Lactate Dehydrogenase Troponin T Total Protein Albumin HDL Cholesterol Arterial Blood Glucose 224 H Arterial Blood Ionized Calcium 3.8 L 09/06/20 09/06/20 09/06/20 09:30 15:27 17:57 WBC RBC Hgb Hct MCV MCH RDW Plt Count Lymph % (Auto) [place] % (Auto) Lymph # (Auto) Seg Neutrophils % Nucleated RBC % Seg Neutrophils # D-Dimer ABG pH POC ABG pCO2 POC ABG pO2 ABG HCO3 ABG Base Excess ABG Hemoglobin ABG Oxyhemoglobin ABG Sodium ABG Potassium ABG Chloride ABG Glucose Oxyhemoglobin Carboxyhemoglobin Sodium Potassium Chloride Carbon Dioxide BUN Creatinine Glucose POC Glucose 236 H 166 H 130 H Calcium Phosphorus Magnesium Ferritin AST Alkaline Phosphatase Lactate Dehydrogenase Troponin T Total Protein Albumin HDL Cholesterol Arterial Blood Glucose Arterial Blood Ionized Calcium 09/06/20 09/07/20 09/07/20 22:21 03:28 04:00 WBC RBC Hgb Hct MCV MCH RDW Plt Count Lymph % (Auto) [place] % (Auto) Lymph # (Auto) Seg Neutrophils % Nucleated RBC % Seg Neutrophils # D-Dimer ABG pH POC ABG pCO2 POC ABG pO2 62.2 L ABG HCO3 ABG Base Excess ABG Hemoglobin 8.0 L ABG Oxyhemoglobin 87.8 L ABG Sodium 127.3 L ABG Potassium 5.7 H ABG Chloride 89.0 L ABG Glucose 232 H Oxyhemoglobin Carboxyhemoglobin Sodium Potassium Chloride Carbon Dioxide BUN Creatinine Glucose POC Glucose 154 H 183 H Calcium Phosphorus Magnesium Ferritin AST Alkaline Phosphatase Lactate Dehydrogenase Troponin T Total Protein Albumin HDL Cholesterol Arterial Blood Glucose 232 H Arterial Blood Ionized Calcium 3.7 L 09/07/20 09/07/20 09/07/20 04:12 04:12 05:45 WBC RBC 2.32 L Hgb 7.9 L Hct 24.0 L MCV 104 H MCH 34 H RDW 17.7 H Plt Count 116 L Lymph % (Auto) 8.5 L [place] % (Auto) 9.0 H Lymph # (Auto) 0.7 L Seg Neutrophils % 81.3 H Nucleated RBC % Seg Neutrophils # D-Dimer ABG pH POC ABG pCO2 POC ABG pO2 ABG HCO3 ABG Base Excess ABG Hemoglobin ABG Oxyhemoglobin ABG Sodium ABG Potassium ABG Chloride ABG Glucose Oxyhemoglobin Carboxyhemoglobin Sodium 133 L Potassium 6.2 H* D Chloride 85.8 L Carbon Dioxide BUN 132 H Creatinine 9.8 H Glucose 227 H POC Glucose 223 H Calcium 7.9 L Phosphorus Magnesium Ferritin AST Alkaline Phosphatase Lactate Dehydrogenase Troponin T Total Protein Albumin HDL Cholesterol Arterial Blood Glucose Arterial Blood Ionized Calcium 09/07/20 07:49 WBC RBC Hgb Hct MCV MCH RDW Plt Count Lymph % (Auto) [place] % (Auto) Lymph # (Auto) Seg Neutrophils % Nucleated RBC % Seg Neutrophils # D-Dimer ABG pH POC ABG pCO2 POC ABG pO2 ABG HCO3 ABG Base Excess ABG Hemoglobin ABG Oxyhemoglobin ABG Sodium ABG Potassium ABG Chloride ABG Glucose Oxyhemoglobin Carboxyhemoglobin Sodium Potassium Chloride Carbon Dioxide BUN Creatinine Glucose POC Glucose 281 H Calcium Phosphorus Magnesium Ferritin AST Alkaline Phosphatase Lactate Dehydrogenase Troponin T Total Protein Albumin HDL Cholesterol Arterial Blood Glucose Arterial Blood Ionized Calcium Chest x-ray: pending Allied health notes reviewed: nursing
--- NOTE | 2020-09-07 13:57 | Event Note ---
Date: 09/07/20 Pt's at bedside. They are legally but have lived apart for the last 5 years. He states he is sure the pt would not want to live as she is or have her life prolonged. He will speak with the pt's daughter (his step daughter) and they will get back with us regarding their decisions/plans. We discussed comfort care/hospice/code status.
[2020-09-08] MEDS: INSULIN REGULAR, HUMAN 100 UNITS/1 ML SUB-Q SCH ×5 (02:34→18:32)
[2020-09-08] MEDS: NITROGLYCERIN 0.4 MG PATCH 24HR TD SCH (06:24)
[2020-09-08] MEDS: HEPARIN 5,000 UNIT/1 ML VIAL SUB-Q SCH ×3 (06:25→21:34)
[2020-09-08] MEDS: INSULIN GLARGINE 100 UNITS/ML SUB-Q SCH (09:06)
[2020-09-08] MEDS: FAMOTIDINE 20 MG TAB PO SCH (09:07)
[2020-09-08] MEDS: levETIRAcetam 500 MG/5 ML ORAL LIQD PO SCH (09:07)
[2020-09-08] MEDS: INSULIN LISPRO 100 UNIT/ML SUB-Q SCH ×3 (09:07→19:20)
[2020-09-08] MEDS: SENNOSIDES/DOCUSATE SODIUM 8.6/50 MG TAB FEEDTUBE SCH ×2 (09:07→21:34)
[2020-09-08] MEDS: METOPROLOL TARTRATE 50 MG TAB PO SCH (09:08)
[2020-09-08] MEDS: amLODIPine 10 MG TAB PO SCH (09:08)
--- NOTE | 2020-09-08 09:48 | Progress Note ---
Assessment and Plan - Patient Problems (1) Anoxic encephalopathy Current Visit: Yes Status: Acute Plan to address problem: In the setting of cardiopulmonary arrest. No changes in her neurological status, which remains poor at this time. Pending hospice evaluation/transition. Per nursing staff, family requested another EEG and MRI of the brain. Will follow up with ICU team. (2) Cardiac arrest Current Visit: Yes Status: Acute Plan to address problem: s/p cardiac arrest suffered at home, with unfortunately severe anoxic encephalopathy/brain injury suffered without improvement in neurologic status. She is off all pressors and sedation at this time. Cardiology input reviewed and appreciated. Overall prognosis remains poor/grim at this point. (3) End-stage renal disease on hemodialysis Current Visit: Yes Status: Chronic Plan to address problem: Patient was placed on MWF HD schedule. At this point, given her overall poor prognosis, and notes from primary indicating likely transition to hospice, will hold HD at this time. Dialysis will not change her ultimately grim prognosis at this time. Her hyperkalemia was treated medically with improvement in serum potassium levels noted (4) Hyperkalemia Current Visit: Yes Status: Acute Plan to address problem: we have treated her medically with kayexulate with improvement noted. (5) Multifocal pneumonia Current Visit: Yes Status: Acute Plan to address problem: Please ensure that antibiotics are dosed appropriately for her decreased renal function. (6) Pulmonary edema Current Visit: Yes Status: Acute Plan to address problem: Will monitor closely. She remains intubated, without any acute changes in vent settings at this time. Subjective Date of service: 09/08/20 Principal diagnosis: Cardiac arrest; Ac. hypoxemic resp failure; PNA; ESRD; NSTEMI; Hyperkalemia Interval history: No acute changes, remains unresponsive off all sedation, no changes in her neurological function. Objective - Vital Signs Vital signs: Vital Signs - 12hr 09/07/20 09/07/20 09/07/20 21:51 22:00 22:15 Temperature Pulse Rate 80 81 80 Pulse Rate [ From Monitor] Respiratory 18 22 16 Rate Blood Pressure 120/43 121/44 121/44 O2 Sat by Pulse 95 96 98 Oximetry 09/07/20 09/07/20 09/07/20 22:30 22:45 23:00 Temperature Pulse Rate 79 79 78 Pulse Rate [ From Monitor] Respiratory 17 15 16 Rate Blood Pressure 119/42 119/42 115/41 O2 Sat by Pulse 98 100 100 Oximetry 09/07/20 09/07/20 09/07/20 23:15 23:30 23:45 Temperature Pulse Rate 79 80 79 Pulse Rate [ From Monitor] Respiratory 24 25 H 24 Rate Blood Pressure 115/41 118/43 118/43 O2 Sat by Pulse 100 94 94 Oximetry 09/08/20 09/08/20 09/08/20 00:00 00:15 00:30 Temperature Pulse Rate 79 79 80 Pulse Rate [ 79 From Monitor] Respiratory 22 17 20 Rate Blood Pressure 113/42 113/42 117/42 O2 Sat by Pulse 98 99 98 Oximetry 09/08/20 09/08/20 09/08/20 00:45 01:01 01:15 Temperature Pulse Rate 78 78 79 Pulse Rate [ From Monitor] Respiratory 18 21 Rate Blood Pressure 117/42 95/35 93/36 O2 Sat by Pulse 100 100 100 Oximetry 09/08/20 09/08/20 09/08/20 01:30 01:45 02:00 Temperature 99.0 F Pulse Rate 76 78 79 Pulse Rate [ From Monitor] Respiratory 13 14 12 Rate Blood Pressure 101/39 101/39 101/39 O2 Sat by Pulse 100 100 100 Oximetry 09/08/20 09/08/20 09/08/20 02:15 02:30 02:45 Temperature Pulse Rate 79 79 79 Pulse Rate [ From Monitor] Respiratory 12 12 12 Rate Blood Pressure 108/41 111/40 108/41 O2 Sat by Pulse 100 100 100 Oximetry 09/08/20 09/08/20 09/08/20 03:00 03:15 03:30 Temperature Pulse Rate 79 80 81 Pulse Rate [ From Monitor] Respiratory 02 27 12 Rate Blood Pressure 107/39 107/39 106/40 O2 Sat by Pulse 100 100 100 Oximetry 09/08/20 09/08/20 09/08/20 03:45 04:00 04:15 Temperature 99.6 F Pulse Rate 79 78 79 Pulse Rate [ 78 From Monitor] Respiratory 12 12 12 Rate Blood Pressure 107/39 104/39 104/39 O2 Sat by Pulse 100 100 100 Oximetry 09/08/20 09/08/20 09/08/20 04:30 04:45 05:00 Temperature Pulse Rate 79 78 78 Pulse Rate [ From Monitor] Respiratory 12 13 Rate Blood Pressure 108/39 108/39 102/37 O2 Sat by Pulse 100 100 100 Oximetry 09/08/20 09/08/20 09/08/20 05:15 05:30 05:45 Temperature Pulse Rate 80 76 77 Pulse Rate [ From Monitor] Respiratory 12 14 18 Rate Blood Pressure 108/39 101/37 102/37 O2 Sat by Pulse 100 100 100 Oximetry 09/08/20 09/08/20 09/08/20 06:00 06:15 06:24 Temperature Pulse Rate 76 77 79 Pulse Rate [ From Monitor] Respiratory 19 18 Rate Blood Pressure 109/42 109/42 109/42 O2 Sat by Pulse 93 94 Oximetry 09/08/20 09/08/20 09/08/20 06:30 06:45 07:00 Temperature Pulse Rate 79 78 78 Pulse Rate [ From Monitor] Respiratory 15 12 15 Rate Blood Pressure 85/36 109/42 108/42 O2 Sat by Pulse 97 96 99 Oximetry 09/08/20 09/08/20 09/08/20 07:11 07:15 07:30 Temperature 98.3 F Pulse Rate 77 80 Pulse Rate [ From Monitor] Respiratory 12 14 Rate Blood Pressure 108/42 106/43 O2 Sat by Pulse 99 94 Oximetry 09/08/20 09/08/20 07:45 08:00 Temperature Pulse Rate 79 80 Pulse Rate [ 78 From Monitor] Respiratory 13 12 Rate Blood Pressure 106/43 104/43 O2 Sat by Pulse 99 98 Oximetry - General Appearance General appearance: chronically ill, intubated EENT: ATNC Neck: no JVD Respiratory: Present: Decreased Breath Sounds Cardiology: regular Gastrointestinal: normal Neurologic: other (unresponive off sedation ) Musculoskeletal: deferred - Lab 09/07/20 04:12 09/07/20 15:35 Most recent lab results ABG pH 7.413 (7.320-7.450) 09/07/20 04:00 ABG pCO2 38.0 mm Hg 09/02/20 03:40 ABG pO2 83.1 mm Hg (80.0-90.0) 09/02/20 03:40 ABG HCO3 29.4 mmol/L (20.0-26.0) H 09/02/20 03:40 ABG O2 Saturation 89.0 (0-100) 09/07/20 04:00 Calcium 7.9 mg/dL (8.4-10.2) L 09/07/20 04:12 Phosphorus 11.50 mg/dL (2.5-4.5) H 08/30/20 00:15 Magnesium 3.80 mg/dL (1.7-2.3) H 08/30/20 00:15 - Allied health notes Allied health notes reviewed: nursing Medications & Allergies - Medications Allergies/Adverse Reactions: Allergies No Known Allergies Allergy (Verified 08/30/20 22:43) Home Medications: Home Medications Medication Instructions Recorded Confirmed Last Taken Type Acyclovir [Zovirax Tab] 400 mg PO BID 08/30/20 08/30/20 Unknown History Amlodipine Besylate 10 mg PO DAILY 08/30/20 08/30/20 Unknown History Furosemide [Lasix] 40 mg PO DAILY 08/30/20 08/30/20 Unknown History Gabapentin [Neurontin] 600 mg PO BID 08/30/20 08/30/20 Unknown History Imdur ER 30 mg PO DAILY 08/30/20 08/30/20 Unknown History Losartan Potassium 50 mg PO BID 08/30/20 08/30/20 Unknown History Losartan/Hydrochlorothiazide 1 each PO DAILY 08/30/20 08/30/20 Unknown History [Losartan-Hctz 100-25 mg Tab] Metoprolol Tartrate 25 mg PO BID 08/30/20 08/30/20 Unknown History Mirtazapine [Remeron] 30 mg PO HS 08/30/20 08/30/20 Unknown History Sevelamer Carbonate [Renvela] 800 mg PO TIDWM 08/30/20 08/30/20 Unknown History Vit B Complx C/Folic Acid/Zinc 0.8 mg PO DAILY 08/30/20 08/30/20 Unknown History [Dialyvite 800-Zinc 15 Tab] Zolpidem Tartrate [Edluar SUBL] 5 mg PO QHS PRN 08/30/20 08/30/20 Unknown History calcitrioL 0.5 mcg PO DAILY 08/30/20 08/30/20 Unknown History Active Medications: Generic Name Dose Route Start Last Admin Trade Name Freq PRN Reason Stop Dose Admin Acetaminophen 650 mg 09/01/20 00:27 09/04/20 04:34 Acetaminophen 325 Mg/10.15 Ml Oral Liqd Unit Dose FEEDTUBE 650 mg Q6H PRN Administration Non Cardiac Pain or Temp>100.5 Amlodipine Besylate 10 mg 09/03/20 11:00 09/08/20 09:08 Amlodipine 10 Mg Tab PO Not Given QDAY ANIYAH Lipase/Protease/Amylase 1 each 08/30/20 14:27 Lipase 10,500/Protease 25,000/Amylase 43,750 (Units) Dr Duran FEEDTUBE PRN PRN For Clogged Feeding Tube Dextrose 50 ml 08/30/20 19:48 Dextrose 50% In Water (25gm) 50 Ml Syringe IV Q30MIN PRN Hypoglycemia Protocol Famotidine 20 mg 09/02/20 10:00 09/08/20 09:07 Famotidine 20 Mg Tab PO 20 mg DAILY ANIYAH Administration Heparin Sodium (Porcine) 5,000 unit 08/30/20 06:00 09/08/20 06:25 Heparin 5,000 Unit/1 Ml Vial SUB-Q 5,000 unit Q8HR ANIYAH Administration Hydralazine HCl 10 mg 08/31/20 18:14 09/04/20 04:34 Hydralazine 20 Mg/1 Ml Inj IV 10 mg Q4HR PRN Administration Hypertension Hydrophilic Ointment 1 applic 08/30/20 14:05 Lip Therapy Vaseline TP Q2HR PRN Dry Lips Sodium Chloride 100 mls @ 999 mls/hr 08/30/20 09:00 Nacl 0.9% IV ARMIDA PRN Hypotension Insulin Glargine 30 units 09/03/20 10:00 09/08/20 09:06 Insulin Glargine 100 Units/Ml SUB-Q 30 units DAILY ANIYAH Administration Insulin Human Lispro 5 unit 09/04/20 08:00 09/08/20 09:07 Insulin Lispro 100 Unit/Ml SUB-Q 5 unit TID ANIYAH Administration Insulin Human Regular 0 units 09/01/20 10:00 09/08/20 09:10 Insulin Regular, Human 100 Units/1 Ml SUB-Q 3 units Q4HR ANIYAH Administration Protocol Levetiracetam 750 mg 09/04/20 22:00 09/08/20 09:07 Levetiracetam 500 Mg/5 Ml Oral Liqd PO 750 mg BID ANIYAH Administration Magnesium Hydroxide 30 ml 08/30/20 04:41 Magnesium Hydroxide (Mom) Oral Liqd Udc PO Q4H PRN Constipation Metoprolol Tartrate 50 mg 09/03/20 11:00 09/08/20 09:08 Metoprolol Tartrate 50 Mg Tab PO Not Given BID ANIYAH Multi-Ingred Cream/Lotion/Oil/Oint 1 applic 08/30/20 14:05 08/31/20 01:17 Mineral Oil/Petrolatum, White Ophth Oint 3.5 Gm OU 1 applic Q4HR PRN Administration Dry Eye(s) Nitroglycerin 0.4 mg 09/04/20 06:00 09/08/20 06:24 Nitroglycerin 0.4 Mg Patch 24hr TD Not Given QDAY@0600 ANIYAH Ondansetron HCl 4 mg 08/30/20 04:41 Ondansetron 4 Mg/2 Ml Inj IV Q8H PRN Nausea And Vomiting Senna/Docusate Sodium 1 tab 08/30/20 22:00 09/08/20 09:07 Sennosides/Docusate Sodium 8.6/50 Mg Tab FEEDTUBE 1 tab BID ANIYAH Administration Simple Syrup 15 ml 08/30/20 14:27 Simple Syrup 15 Ml FEEDTUBE PRN PRN Hypoglycemia Simple Syrup 30 ml 08/30/20 14:27 Simple Syrup 15 Ml FEEDTUBE PRN PRN Hypoglycemia Sodium Bicarbonate 325 mg 08/30/20 14:27 09/05/20 08:26 Sodium Bicarbonate 325 Mg Tab FEEDTUBE 325 mg PRN PRN Administration For Clogged Feeding Tube Sodium Chloride 10 ml 08/30/20 10:00 09/08/20 09:08 Sodium Chloride 0.9% 10 Ml Flush Syringe IV 10 ml BID ANIYAH Administration Sodium Chloride 10 ml 08/30/20 04:41 Sodium Chloride 0.9% 10 Ml Flush Syringe IV PRN PRN LINE FLUSH
--- NOTE | 2020-09-08 10:50 | Progress Note ---
Assessment and Plan Cardiac arrest with return of spontaneous circulation Acute hypoxemic respiratory failure Bilateral pneumonia, possibly aspiration Bilateral pulmonary edema End-stage renal disease, on dialysis NSTEMI Severe hyperkalemia History of multiple myeloma History of hypertension Anemia that is microcytic Elevated serum troponin (Discussed at length with hjer daughter and explained the concept of substituted judgment after she states that she felt like she might be causing harm [killing] her mother if she agrees to hospice care; i also explained the concept of allowing natural and she will speak further with patients ) - Bolus 1 Liter IVNS - get ABG now and address re: ? acidosis - begin Midodrine 15 mg p.o. tid (1st dose now) - AMS remains rate limiting step to safe extubation - continue care as below; - continue Daily SAT and SBT assessment as tolerated - continue to wean supplemental oxygen for target O2 sat's > 90% acutely - VAP bundle addressed - continue lung protective strategies - continue bronchodilators with pulmonary hygiene per RT - wean per pulmonary driven protocols otherwise - continue HD/UF for toxin and volume clearance - avoid nephrotoxins, renally dose all medications - continue accuchecks with glycemic control per SSI (While critically ill target blood glucose of 140-180 mg/dL; avoid hypoglycemia) - sedation prn for target RASS 0 to -1 - continue to avoid benzodiazepine's, reduce the possibility of delirium - complete AB's per ID rec's - prn analgesia per CPOT score - Maintenance of sleep-wake cycle, avoid delirium - continue enteral nutritional support at goal rate as tolerated - G.I. & VTE prophylaxis - PT/OT/ROM exercises - continue mobility protocols for pressure ulcer prophylaxis - Monitor hemodynamics closely - continue other care per attending / other consultants - discharge planning ongoing concurrently COVID SPECIFIC INTERVENTIONS - COVID PCR negative .... Re-evaluate in am & prn CONDITION: CRITICAL PROGNOSIS: GUARDED CODE STATUS: FULL CODE The high probability of a clinically significant, sudden or life-threatening deterioration of the [respiratory, cardiovascular, hematologic, renal & neurologic] system(s) required my full and direct attention, intervention and personal management. The aggregate critical care time was [40] minutes without o verlap. Time includes spent on; [x] Data Review and interpretation [x] Patient assessment and monitoring of vital signs [x] Documentation [x] Medication orders and management Subjective Date of service: 09/08/20 Principal diagnosis: Cardiac arrest; Ac. hypoxemic resp failure; PNA; ESRD; NSTEMI; Hyperkalemia Interval history: Patient is seen today for: Cardiac arrest with ROSC; Acute hypoxemic respiratory failure; Aspiration Pneumonia; ESRD on dialysis; NSTEMI; Hyperkalemia Seen and examined at bedside; 24hour events reviewed; nursing and respiratory care staff consulted; no adverse overnight events reported to me; resting peacefully in bed; remains on MVS; hypotensive this morning; afebrile and no seizures; HD/UF remains on hold Objective Vital Signs - 12hr 09/07/20 09/07/20 09/07/20 23:00 23:15 23:30 Temperature Pulse Rate 78 79 80 Pulse Rate [ From Monitor] Respiratory 16 24 25 H Rate Blood Pressure 115/41 115/41 118/43 O2 Sat by Pulse 100 100 94 Oximetry 09/07/20 09/08/20 09/08/20 23:45 00:00 00:15 Temperature Pulse Rate 79 79 79 Pulse Rate [ 79 From Monitor] Respiratory 24 22 17 Rate Blood Pressure 118/43 113/42 113/42 O2 Sat by Pulse 94 98 99 Oximetry 09/08/20 09/08/20 09/08/20 00:30 00:45 01:01 Temperature Pulse Rate 80 78 78 Pulse Rate [ From Monitor] Respiratory 20 21 18 Rate Blood Pressure 117/42 117/42 95/35 O2 Sat by Pulse 98 100 100 Oximetry 09/08/20 09/08/20 09/08/20 01:15 01:30 01:45 Temperature Pulse Rate 79 76 78 Pulse Rate [ From Monitor] Respiratory 21 13 14 Rate Blood Pressure 93/36 101/39 101/39 O2 Sat by Pulse 100 100 100 Oximetry 09/08/20 09/08/20 09/08/20 02:00 02:15 02:30 Temperature 99.0 F Pulse Rate 79 79 79 Pulse Rate [ From Monitor] Respiratory 12 12 12 Rate Blood Pressure 101/39 108/41 111/40 O2 Sat by Pulse 100 100 100 Oximetry 09/08/20 09/08/20 09/08/20 02:45 03:00 03:15 Temperature Pulse Rate 79 79 80 Pulse Rate [ From Monitor] Respiratory 12 12 12 Rate Blood Pressure 108/41 107/39 107/39 O2 Sat by Pulse 100 100 100 Oximetry 09/08/20 09/08/20 09/08/20 03:30 03:45 04:00 Temperature 99.6 F Pulse Rate 81 79 78 Pulse Rate [ 78 From Monitor] Respiratory 12 12 12 Rate Blood Pressure 106/40 107/39 104/39 O2 Sat by Pulse 100 100 100 Oximetry 09/08/20 09/08/20 09/08/20 04:15 04:30 04:45 Temperature Pulse Rate 79 79 78 Pulse Rate [ From Monitor] Respiratory 12 13 12 Rate Blood Pressure 104/39 108/39 108/39 O2 Sat by Pulse 100 100 100 Oximetry 09/08/20 09/08/20 09/08/20 05:00 05:15 05:30 Temperature Pulse Rate 78 80 76 Pulse Rate [ From Monitor] Respiratory 13 12 14 Rate Blood Pressure 102/37 108/39 101/37 O2 Sat by Pulse 100 100 100 Oximetry 09/08/20 09/08/20 09/08/20 05:45 06:00 06:15 Temperature Pulse Rate 77 76 77 Pulse Rate [ From Monitor] Respiratory 18 19 18 Rate Blood Pressure 102/37 109/42 109/42 O2 Sat by Pulse 100 93 94 Oximetry 09/08/20 09/08/20 09/08/20 06:24 06:30 06:45 Temperature Pulse Rate 79 79 78 Pulse Rate [ From Monitor] Respiratory 15 12 Rate Blood Pressure 109/42 85/36 109/42 O2 Sat by Pulse 97 96 Oximetry 09/08/20 09/08/20 09/08/20 07:00 07:11 07:15 Temperature 98.3 F Pulse Rate 78 77 Pulse Rate [ From Monitor] Respiratory 15 12 Rate Blood Pressure 108/42 108/42 O2 Sat by Pulse 99 99 Oximetry 09/08/20 09/08/20 09/08/20 07:30 07:45 08:00 Temperature Pulse Rate 80 79 80 Pulse Rate [ 78 From Monitor] Respiratory 14 13 12 Rate Blood Pressure 106/43 106/43 104/43 O2 Sat by Pulse 94 99 98 Oximetry Constitutional: appears uncomfortable, other (elderly female riding set rate at rest on MVS) Eyes: non-icteric ENT: oropharynx moist, other (ETT 23 cm COLLEEN) Neck: supple, no lymphadenopathy, no JVD Effort: normal Ascultation: Bilateral: rhonchi Percussion: Bilateral: not dull Cardiovascular: regular rate and rhythm, other (S1,S2) Gastrointestinal: normoactive bowel sounds, soft, non-tender, non-distended Integumentary: normal Extremities: no cyanosis, pulses normal, no ischemia or petechiae Neurologic: pupils equal and round, other (unresponsive, not obeying commands) Psychiatric: other (unable to assess re: AMS) CBC and BMP: 09/07/20 04:12 09/07/20 15:35 ABG, PT/INR, D-dimer: ABG ABG pH 7.413 (7.320-7.450) 09/07/20 04:00 POC ABG pCO2 37.4 mmHg (32.0-48.0) 09/07/20 04:00 ABG pCO2 38.0 mm Hg 09/02/20 03:40 POC ABG pO2 62.2 mmHg (83-108) L 09/07/20 04:00 ABG pO2 83.1 mm Hg (80.0-90.0) 09/02/20 03:40 POC ABG HCO3 23.3 09/07/20 04:00 ABG O2 Saturation 89.0 (0-100) 09/07/20 04:00 PT/INR, D-dimer PT 12.8 Sec. (12.2-14.9) 08/31/20 05:45 INR 0.90 (0.87-1.13) 08/31/20 05:45 D-Dimer > 19125 ng/mlDDU (0-234) H 08/30/20 03:10 Abnormal lab findings: Abnormal Labs 08/30/20 08/30/20 08/30/20 00:14 00:15 00:15 WBC RBC 2.83 L Hgb 9.8 L Hct MCV 112 H MCH 35 H RDW 19.9 H Plt Count 95 L Lymph % (Auto) [place] % (Auto) Lymph # (Auto) Seg Neutrophils % Nucleated RBC % 1.0 H Seg Neutrophils # D-Dimer ABG pH 7.199 L POC ABG pCO2 49.3 H POC ABG pO2 ABG HCO3 ABG Base Excess ABG Hemoglobin 11.9 L ABG Oxyhemoglobin 93.0 L ABG Sodium ABG Potassium 6.9 H ABG Chloride ABG Glucose 158 H Oxyhemoglobin Carboxyhemoglobin 2.8 H Sodium Potassium 7.0 H* Chloride Carbon Dioxide 18 L BUN 68 H Creatinine 8.3 H Glucose 174 H POC Glucose Calcium Phosphorus Magnesium Ferritin AST 68 H Alkaline Phosphatase 414 H Lactate Dehydrogenase Troponin T 0.085 H Total Protein 5.6 L Albumin 3.4 L HDL Cholesterol 66 H Arterial Blood Glucose 158 H Arterial Blood Ionized Calcium 08/30/20 08/30/20 08/30/20 00:15 00:15 03:10 WBC RBC Hgb Hct MCV MCH RDW Plt Count Lymph % (Auto) [place] % (Auto) Lymph # (Auto) Seg Neutrophils % Nucleated RBC % Seg Neutrophils # D-Dimer 6083.16 H > 92968 H ABG pH POC ABG pCO2 POC ABG pO2 ABG HCO3 ABG Base Excess ABG Hemoglobin ABG Oxyhemoglobin ABG Sodium ABG Potassium ABG Chloride ABG Glucose Oxyhemoglobin Carboxyhemoglobin Sodium Potassium Chloride Carbon Dioxide BUN Creatinine Glucose POC Glucose Calcium Phosphorus 11.50 H Magnesium 3.80 H Ferritin AST Alkaline Phosphatase Lactate Dehydrogenase Troponin T Total Protein Albumin HDL Cholesterol Arterial Blood Glucose Arterial Blood Ionized Calcium 08/30/20 08/30/20 08/30/20 03:10 03:10 04:49 WBC RBC Hgb Hct MCV MCH RDW Plt Count Lymph % (Auto) [place] % (Auto) Lymph # (Auto) Seg Neutrophils % Nucleated RBC % Seg Neutrophils # D-Dimer ABG pH POC ABG pCO2 POC ABG pO2 ABG HCO3 ABG Base Excess ABG Hemoglobin 10.8 L ABG Oxyhemoglobin ABG Sodium ABG Potassium 6.7 H ABG Chloride ABG Glucose 137 H Oxyhemoglobin Carboxyhemoglobin Sodium Potassium Chloride Carbon Dioxide BUN Creatinine Glucose 126 H POC Glucose Calcium Phosphorus Magnesium Ferritin 830.0 H AST Alkaline Phosphatase Lactate Dehydrogenase 400 H Troponin T Total Protein Albumin HDL Cholesterol Arterial Blood Glucose 137 H Arterial Blood Ionized Calcium 4.5 L 08/30/20 08/30/20 08/30/20 07:13 15:03 15:03 WBC 17.2 H RBC 3.23 L Hgb Hct MCV 108 H MCH 34 H RDW 19.4 H Plt Count 90 L Lymph % (Auto) [place] % (Auto) Lymph # (Auto) Seg Neutrophils % Nucleated RBC % Seg Neutrophils # D-Dimer ABG pH POC ABG pCO2 POC ABG pO2 ABG HCO3 ABG Base Excess ABG Hemoglobin ABG Oxyhemoglobin ABG Sodium ABG Potassium ABG Chloride ABG Glucose Oxyhemoglobin Carboxyhemoglobin Sodium Potassium 8.2 H* 6.5 H* D Chloride 96.7 L Carbon Dioxide 21 L BUN 52 H Creatinine 5.7 H Glucose 220 H POC Glucose Calcium Phosphorus Magnesium Ferritin AST 68 H Alkaline Phosphatase 364 H Lactate Dehydrogenase Troponin T Total Protein Albumin 3.7 L HDL Cholesterol Arterial Blood Glucose Arterial Blood Ionized Calcium 08/30/20 08/30/20 08/31/20 17:27 21:03 04:07 WBC RBC Hgb Hct MCV MCH RDW Plt Count Lymph % (Auto) [place] % (Auto) Lymph # (Auto) Seg Neutrophils % Nucleated RBC % Seg Neutrophils # D-Dimer ABG pH 7.498 H POC ABG pCO2 27.9 L POC ABG pO2 126.9 H ABG HCO3 ABG Base Excess ABG Hemoglobin 10.1 L ABG Oxyhemoglobin 98.3 H ABG Sodium 134.3 L ABG Potassium 6.7 H ABG Chloride ABG Glucose 261 H Oxyhemoglobin Carboxyhemoglobin 0.1 L Sodium Potassium Chloride Carbon Dioxide BUN Creatinine Glucose POC Glucose 223 H 230 H Calcium Phosphorus Magnesium Ferritin AST Alkaline Phosphatase Lactate Dehydrogenase Troponin T Total Protein Albumin HDL Cholesterol Arterial Blood Glucose 261 H Arterial Blood Ionized Calcium 3.6 L 08/31/20 08/31/20 08/31/20 05:01 05:45 05:45 WBC 13.1 H RBC 2.83 L Hgb 9.6 L Hct 29.8 L MCV 105 H MCH 34 H RDW 18.9 H Plt Count 88 L Lymph % (Auto) 6.9 L [place] % (Auto) Lymph # (Auto) 0.9 L Seg Neutrophils % 87.8 H Nucleated RBC % Seg Neutrophils # 11.5 H D-Dimer ABG pH POC ABG pCO2 POC ABG pO2 ABG HCO3 ABG Base Excess ABG Hemoglobin ABG Oxyhemoglobin ABG Sodium ABG Potassium ABG Chloride ABG Glucose Oxyhemoglobin Carboxyhemoglobin Sodium Potassium 7.1 H* Chloride 96.7 L Carbon Dioxide BUN 74 H Creatinine 7.0 H Glucose 254 H POC Glucose 256 H Calcium 7.6 L Phosphorus Magnesium Ferritin AST Alkaline Phosphatase Lactate Dehydrogenase Troponin T Total Protein Albumin HDL Cholesterol Arterial Blood Glucose Arterial Blood Ionized Calcium 08/31/20 08/31/20 09/01/20 11:38 23:31 03:13 WBC RBC Hgb Hct MCV MCH RDW Plt Count Lymph % (Auto) [place] % (Auto) Lymph # (Auto) Seg Neutrophils % Nucleated RBC % Seg Neutrophils # D-Dimer ABG pH 7.519 H POC ABG pCO2 POC ABG pO2 ABG HCO3 ABG Base Excess ABG Hemoglobin 9.3 L ABG Oxyhemoglobin ABG Sodium 134.7 L ABG Potassium ABG Chloride 94.0 L ABG Glucose 441 H Oxyhemoglobin Carboxyhemoglobin Sodium Potassium Chloride Carbon Dioxide BUN Creatinine Glucose POC Glucose 294 H 426 H Calcium Phosphorus Magnesium Ferritin AST Alkaline Phosphatase Lactate Dehydrogenase Troponin T Total Protein Albumin HDL Cholesterol Arterial Blood Glucose 441 H Arterial Blood Ionized Calcium 3.8 L 09/01/20 09/01/20 09/01/20 05:20 10:32 11:45 WBC RBC Hgb Hct MCV MCH RDW Plt Count Lymph % (Auto) [place] % (Auto) Lymph # (Auto) Seg Neutrophils % Nucleated RBC % Seg Neutrophils # D-Dimer ABG pH POC ABG pCO2 POC ABG pO2 ABG HCO3 ABG Base Excess ABG Hemoglobin ABG Oxyhemoglobin ABG Sodium ABG Potassium ABG Chloride ABG Glucose Oxyhemoglobin Carboxyhemoglobin Sodium Potassium Chloride Carbon Dioxide BUN Creatinine Glucose POC Glucose 422 H 227 H 203 H Calcium Phosphorus Magnesium Ferritin AST Alkaline Phosphatase Lactate Dehydrogenase Troponin T Total Protein Albumin HDL Cholesterol Arterial Blood Glucose Arterial Blood Ionized Calcium 09/01/20 09/01/20 09/01/20 13:34 17:11 17:29 WBC RBC Hgb Hct MCV MCH RDW Plt Count Lymph % (Auto) [place] % (Auto) Lymph # (Auto) Seg Neutrophils % Nucleated RBC % Seg Neutrophils # D-Dimer ABG pH POC ABG pCO2 POC ABG pO2 ABG HCO3 ABG Base Excess ABG Hemoglobin ABG Oxyhemoglobin ABG Sodium ABG Potassium ABG Chloride ABG Glucose Oxyhemoglobin Carboxyhemoglobin Sodium Potassium Chloride 94.5 L Carbon Dioxide BUN 29 H Creatinine 3.4 H D Glucose 241 H POC Glucose 212 H 198 H Calcium 8.2 L Phosphorus Magnesium Ferritin AST Alkaline Phosphatase Lactate Dehydrogenase Troponin T Total Protein Albumin HDL Cholesterol Arterial Blood Glucose Arterial Blood Ionized Calcium 09/01/20 09/02/20 09/02/20 21:33 03:08 03:40 WBC RBC Hgb Hct MCV MCH RDW Plt Count Lymph % (Auto) [place] % (Auto) Lymph # (Auto) Seg Neutrophils % Nucleated RBC % Seg Neutrophils # D-Dimer ABG pH 7.506 H POC ABG pCO2 POC ABG pO2 ABG HCO3 29.4 H ABG Base Excess 5.9 H ABG Hemoglobin 8.3 L ABG Oxyhemoglobin ABG Sodium ABG Potassium ABG Chloride ABG Glucose Oxyhemoglobin 94.8 L Carboxyhemoglobin Sodium Potassium Chloride Carbon Dioxide BUN Creatinine Glucose POC Glucose 188 H 179 H Calcium Phosphorus Magnesium Ferritin AST Alkaline Phosphatase Lactate Dehydrogenase Troponin T Total Protein Albumin HDL Cholesterol Arterial Blood Glucose Arterial Blood Ionized Calcium 09/02/20 09/02/20 09/02/20 05:55 07:12 09:28 WBC RBC Hgb Hct MCV MCH RDW Plt Count Lymph % (Auto) [place] % (Auto) Lymph # (Auto) Seg Neutrophils % Nucleated RBC % Seg Neutrophils # D-Dimer ABG pH POC ABG pCO2 POC ABG pO2 ABG HCO3 ABG Base Excess ABG Hemoglobin ABG Oxyhemoglobin ABG Sodium ABG Potassium ABG Chloride ABG Glucose Oxyhemoglobin Carboxyhemoglobin Sodium 136 L Potassium Chloride 91.6 L Carbon Dioxide BUN 52 H Creatinine 5.5 H D Glucose 176 H POC Glucose 185 H 196 H Calcium 7.7 L Phosphorus Magnesium Ferritin AST Alkaline Phosphatase Lactate Dehydrogenase Troponin T Total Protein Albumin HDL Cholesterol Arterial Blood Glucose Arterial Blood Ionized Calcium 09/02/20 09/02/20 09/02/20 11:06 13:03 17:22 WBC RBC Hgb Hct MCV MCH RDW Plt Count Lymph % (Auto) [place] % (Auto) Lymph # (Auto) Seg Neutrophils % Nucleated RBC % Seg Neutrophils # D-Dimer ABG pH POC ABG pCO2 POC ABG pO2 ABG HCO3 ABG Base Excess ABG Hemoglobin ABG Oxyhemoglobin ABG Sodium ABG Potassium ABG Chloride ABG Glucose Oxyhemoglobin Carboxyhemoglobin Sodium Potassium Chloride Carbon Dioxide BUN Creatinine Glucose POC Glucose 224 H 252 H 196 H Calcium Phosphorus Magnesium Ferritin AST Alkaline Phosphatase Lactate Dehydrogenase Troponin T Total Protein Albumin HDL Cholesterol Arterial Blood Glucose Arterial Blood Ionized Calcium 09/02/20 09/03/20 09/03/20 21:13 02:02 04:12 WBC RBC Hgb Hct MCV MCH RDW Plt Count Lymph % (Auto) [place] % (Auto) Lymph # (Auto) Seg Neutrophils % Nucleated RBC % Seg Neutrophils # D-Dimer ABG pH POC ABG pCO2 POC ABG pO2 ABG HCO3 ABG Base Excess ABG Hemoglobin ABG Oxyhemoglobin ABG Sodium ABG Potassium ABG Chloride ABG Glucose Oxyhemoglobin Carboxyhemoglobin Sodium 136 L Potassium Chloride 90.3 L Carbon Dioxide BUN 79 H Creatinine 8.1 H Glucose 223 H POC Glucose 204 H 205 H Calcium 7.1 L Phosphorus Magnesium Ferritin AST Alkaline Phosphatase Lactate Dehydrogenase Troponin T Total Protein Albumin HDL Cholesterol Arterial Blood Glucose Arterial Blood Ionized Calcium 09/03/20 09/03/20 09/03/20 04:12 05:35 09:28 WBC RBC 2.35 L Hgb 8.3 L Hct 25.1 L MCV 107 H MCH 35 H RDW 18.5 H Plt Count 87 L Lymph % (Auto) [place] % (Auto) Lymph # (Auto) Seg Neutrophils % Nucleated RBC % Seg Neutrophils # D-Dimer ABG pH POC ABG pCO2 POC ABG pO2 ABG HCO3 ABG Base Excess ABG Hemoglobin ABG Oxyhemoglobin ABG Sodium ABG Potassium ABG Chloride ABG Glucose Oxyhemoglobin Carboxyhemoglobin Sodium Potassium Chloride Carbon Dioxide BUN Creatinine Glucose POC Glucose 219 H 202 H Calcium Phosphorus Magnesium Ferritin AST Alkaline Phosphatase Lactate Dehydrogenase Troponin T Total Protein Albumin HDL Cholesterol Arterial Blood Glucose Arterial Blood Ionized Calcium 09/03/20 09/03/20 09/03/20 11:36 13:41 16:56 WBC RBC Hgb Hct MCV MCH RDW Plt Count Lymph % (Auto) [place] % (Auto) Lymph # (Auto) Seg Neutrophils % Nucleated RBC % Seg Neutrophils # D-Dimer ABG pH POC ABG pCO2 POC ABG pO2 ABG HCO3 ABG Base Excess ABG Hemoglobin ABG Oxyhemoglobin ABG Sodium ABG Potassium ABG Chloride ABG Glucose Oxyhemoglobin Carboxyhemoglobin Sodium Potassium Chloride Carbon Dioxide BUN Creatinine Glucose POC Glucose 216 H 224 H 298 H Calcium Phosphorus Magnesium Ferritin AST Alkaline Phosphatase Lactate Dehydrogenase Troponin T Total Protein Albumin HDL Cholesterol Arterial Blood Glucose Arterial Blood Ionized Calcium 09/03/20 09/04/20 09/04/20 20:49 00:23 05:28 WBC RBC Hgb Hct MCV MCH RDW Plt Count Lymph % (Auto) [place] % (Auto) Lymph # (Auto) Seg Neutrophils % Nucleated RBC % Seg Neutrophils # D-Dimer ABG pH POC ABG pCO2 POC ABG pO2 ABG HCO3 ABG Base Excess ABG Hemoglobin ABG Oxyhemoglobin ABG Sodium ABG Potassium ABG Chloride ABG Glucose Oxyhemoglobin Carboxyhemoglobin Sodium Potassium Chloride Carbon Dioxide BUN Creatinine Glucose POC Glucose 228 H 228 H 283 H Calcium Phosphorus Magnesium Ferritin AST Alkaline Phosphatase Lactate Dehydrogenase Troponin T Total Protein Albumin HDL Cholesterol Arterial Blood Glucose Arterial Blood Ionized Calcium 09/04/20 09/04/20 09/04/20 10:03 17:39 21:45 WBC RBC Hgb Hct MCV MCH RDW Plt Count Lymph % (Auto) [place] % (Auto) Lymph # (Auto) Seg Neutrophils % Nucleated RBC % Seg Neutrophils # D-Dimer ABG pH POC ABG pCO2 POC ABG pO2 ABG HCO3 ABG Base Excess ABG Hemoglobin ABG Oxyhemoglobin ABG Sodium ABG Potassium ABG Chloride ABG Glucose Oxyhemoglobin Carboxyhemoglobin Sodium Potassium Chloride Carbon Dioxide BUN Creatinine Glucose POC Glucose 159 H 128 H 213 H Calcium Phosphorus Magnesium Ferritin AST Alkaline Phosphatase Lactate Dehydrogenase Troponin T Total Protein Albumin HDL Cholesterol Arterial Blood Glucose Arterial Blood Ionized Calcium 09/05/20 09/05/20 09/05/20 02:04 05:33 09:25 WBC RBC Hgb Hct MCV MCH RDW Plt Count Lymph % (Auto) [place] % (Auto) Lymph # (Auto) Seg Neutrophils % Nucleated RBC % Seg Neutrophils # D-Dimer ABG pH POC ABG pCO2 POC ABG pO2 ABG HCO3 ABG Base Excess ABG Hemoglobin ABG Oxyhemoglobin ABG Sodium ABG Potassium ABG Chloride ABG Glucose Oxyhemoglobin Carboxyhemoglobin Sodium Potassium Chloride Carbon Dioxide BUN Creatinine Glucose POC Glucose 178 H 177 H 199 H Calcium Phosphorus Magnesium Ferritin AST Alkaline Phosphatase Lactate Dehydrogenase Troponin T Total Protein Albumin HDL Cholesterol Arterial Blood Glucose Arterial Blood Ionized Calcium 09/05/20 09/05/20 09/05/20 13:26 16:47 21:40 WBC RBC Hgb Hct MCV MCH RDW Plt Count Lymph % (Auto) [place] % (Auto) Lymph # (Auto) Seg Neutrophils % Nucleated RBC % Seg Neutrophils # D-Dimer ABG pH POC ABG pCO2 POC ABG pO2 ABG HCO3 ABG Base Excess ABG Hemoglobin ABG Oxyhemoglobin ABG Sodium ABG Potassium ABG Chloride ABG Glucose Oxyhemoglobin Carboxyhemoglobin Sodium Potassium Chloride Carbon Dioxide BUN Creatinine Glucose POC Glucose 136 H 141 H 131 H Calcium Phosphorus Magnesium Ferritin AST Alkaline Phosphatase Lactate Dehydrogenase Troponin T Total Protein Albumin HDL Cholesterol Arterial Blood Glucose Arterial Blood Ionized Calcium 09/06/20 09/06/20 09/06/20 03:16 05:20 07:39 WBC RBC Hgb Hct MCV MCH RDW Plt Count Lymph % (Auto) [place] % (Auto) Lymph # (Auto) Seg Neutrophils % Nucleated RBC % Seg Neutrophils # D-Dimer ABG pH POC ABG pCO2 POC ABG pO2 66.8 L ABG HCO3 ABG Base Excess ABG Hemoglobin 9.3 L ABG Oxyhemoglobin 89.9 L ABG Sodium 130.5 L ABG Potassium 5.1 H ABG Chloride 91.0 L ABG Glucose 224 H Oxyhemoglobin Carboxyhemoglobin Sodium Potassium Chloride Carbon Dioxide BUN Creatinine Glucose POC Glucose 112 H 163 H Calcium Phosphorus Magnesium Ferritin AST Alkaline Phosphatase Lactate Dehydrogenase Troponin T Total Protein Albumin HDL Cholesterol Arterial Blood Glucose 224 H Arterial Blood Ionized Calcium 3.8 L 09/06/20 09/06/20 09/06/20 09:30 15:27 17:57 WBC RBC Hgb Hct MCV MCH RDW Plt Count Lymph % (Auto) [place] % (Auto) Lymph # (Auto) Seg Neutrophils % Nucleated RBC % Seg Neutrophils # D-Dimer ABG pH POC ABG pCO2 POC ABG pO2 ABG HCO3 ABG Base Excess ABG Hemoglobin ABG Oxyhemoglobin ABG Sodium ABG Potassium ABG Chloride ABG Glucose Oxyhemoglobin Carboxyhemoglobin Sodium Potassium Chloride Carbon Dioxide BUN Creatinine Glucose POC Glucose 236 H 166 H 130 H Calcium Phosphorus Magnesium Ferritin AST Alkaline Phosphatase Lactate Dehydrogenase Troponin T Total Protein Albumin HDL Cholesterol Arterial Blood Glucose Arterial Blood Ionized Calcium 09/06/20 09/07/20 09/07/20 22:21 03:28 04:00 WBC RBC Hgb Hct MCV MCH RDW Plt Count Lymph % (Auto) [place] % (Auto) Lymph # (Auto) Seg Neutrophils % Nucleated RBC % Seg Neutrophils # D-Dimer ABG pH POC ABG pCO2 POC ABG pO2 62.2 L ABG HCO3 ABG Base Excess ABG Hemoglobin 8.0 L ABG Oxyhemoglobin 87.8 L ABG Sodium 127.3 L ABG Potassium 5.7 H ABG Chloride 89.0 L ABG Glucose 232 H Oxyhemoglobin Carboxyhemoglobin Sodium Potassium Chloride Carbon Dioxide BUN Creatinine Glucose POC Glucose 154 H 183 H Calcium Phosphorus Magnesium Ferritin AST Alkaline Phosphatase Lactate Dehydrogenase Troponin T Total Protein Albumin HDL Cholesterol Arterial Blood Glucose 232 H Arterial Blood Ionized Calcium 3.7 L 09/07/20 09/07/20 09/07/20 04:12 04:12 05:45 WBC RBC 2.32 L Hgb 7.9 L Hct 24.0 L MCV 104 H MCH 34 H RDW 17.7 H Plt Count 116 L Lymph % (Auto) 8.5 L [place] % (Auto) 9.0 H Lymph # (Auto) 0.7 L Seg Neutrophils % 81.3 H Nucleated RBC % Seg Neutrophils # D-Dimer ABG pH POC ABG pCO2 POC ABG pO2 ABG HCO3 ABG Base Excess ABG Hemoglobin ABG Oxyhemoglobin ABG Sodium ABG Potassium ABG Chloride ABG Glucose Oxyhemoglobin Carboxyhemoglobin Sodium 133 L Potassium 6.2 H* D Chloride 85.8 L Carbon Dioxide BUN 132 H Creatinine 9.8 H Glucose 227 H POC Glucose 223 H Calcium 7.9 L Phosphorus Magnesium Ferritin AST Alkaline Phosphatase Lactate Dehydrogenase Troponin T Total Protein Albumin HDL Cholesterol Arterial Blood Glucose Arterial Blood Ionized Calcium 09/07/20 09/07/20 09/07/20 07:49 11:48 18:13 WBC RBC Hgb Hct MCV MCH RDW Plt Count Lymph % (Auto) [place] % (Auto) Lymph # (Auto) Seg Neutrophils % Nucleated RBC % Seg Neutrophils # D-Dimer ABG pH POC ABG pCO2 POC ABG pO2 ABG HCO3 ABG Base Excess ABG Hemoglobin ABG Oxyhemoglobin ABG Sodium ABG Potassium ABG Chloride ABG Glucose Oxyhemoglobin Carboxyhemoglobin Sodium Potassium Chloride Carbon Dioxide BUN Creatinine Glucose POC Glucose 281 H 169 H 162 H Calcium Phosphorus Magnesium Ferritin AST Alkaline Phosphatase Lactate Dehydrogenase Troponin T Total Protein Albumin HDL Cholesterol Arterial Blood Glucose Arterial Blood Ionized Calcium 09/07/20 09/08/20 20:53 01:07 WBC RBC Hgb Hct MCV MCH RDW Plt Count Lymph % (Auto) [place] % (Auto) Lymph # (Auto) Seg Neutrophils % Nucleated RBC % Seg Neutrophils # D-Dimer ABG pH POC ABG pCO2 POC ABG pO2 ABG HCO3 ABG Base Excess ABG Hemoglobin ABG Oxyhemoglobin ABG Sodium ABG Potassium ABG Chloride ABG Glucose Oxyhemoglobin Carboxyhemoglobin Sodium Potassium Chloride Carbon Dioxide BUN Creatinine Glucose POC Glucose 205 H 180 H Calcium Phosphorus Magnesium Ferritin AST Alkaline Phosphatase Lactate Dehydrogenase Troponin T Total Protein Albumin HDL Cholesterol Arterial Blood Glucose Arterial Blood Ionized Calcium Chest x-ray: pending Allied health notes reviewed: nursing
[2020-09-08] MEDS ORDERED: SODIUM CHLORIDE 0.9% 1000 ML 1,000 ML ONE (11:41)
--- NOTE | 2020-09-08 12:07 | Progress Note ---
Assessment and Plan Out of hospital cardiopulmonary arrest Brain MRI is consistent with anoxic brain injury normal LVEF 55-60% by echocardiogram no evidence of DVT by LE duplex End-stage renal disease on hemodialysis Hx of multiple myeloma s/p chemotherapy Hypertension Diabetes Anemia Supportive cardiac management. Subjective Date of service: 09/08/20 Principal diagnosis: Cardiac arrest; Ac. hypoxemic resp failure; PNA; ESRD; NSTEMI; Hyperkalemia Interval history: Patient remains unresponsive on the vent without sedation and severe anoxic encephalopathy. Objective Vital Signs Temp Pulse Pulse Resp BP Pulse Ox 09/08/20 11:57 72 79/33 100 09/08/20 11:30 72 12 79/33 100 09/08/20 11:15 75 19 81/33 96 09/08/20 11:00 75 17 81/33 100 09/08/20 10:45 74 16 99/41 100 09/08/20 10:30 83 13 99/41 100 09/08/20 10:15 82 11 L 97/40 100 09/08/20 10:00 82 24 97/40 100 09/08/20 09:45 80 14 103/42 100 09/08/20 09:30 78 12 102/40 100 09/08/20 09:15 84 12 103/42 100 09/08/20 09:00 85 17 103/42 86 09/08/20 08:45 80 23 105/44 87 09/08/20 08:30 84 16 105/44 91 09/08/20 08:15 81 24 104/43 89 09/08/20 08:00 80 78 12 104/43 98 09/08/20 07:45 79 13 106/43 99 09/08/20 07:30 80 14 106/43 94 09/08/20 07:15 77 12 108/42 99 09/08/20 07:11 98.3 F 09/08/20 07:00 78 15 108/42 99 09/08/20 06:45 78 12 109/42 96 09/08/20 06:30 79 15 85/36 97 09/08/20 06:24 79 109/42 09/08/20 06:15 77 18 109/42 94 09/08/20 06:00 76 19 109/42 93 09/08/20 05:45 77 18 102/37 100 09/08/20 05:30 76 14 101/37 100 06/23/21 05:15 80 12 108/39 100 06/23/21 05:00 78 13 102/37 100 06/23/21 04:45 78 12 108/39 100 06/23/21 04:30 79 13 108/39 100 06/23/21 04:15 79 12 104/39 100 06/23/21 04:00 99.6 F 78 78 12 104/39 100 06/23/21 03:45 79 12 107/39 100 06/23/21 03:30 81 12 106/40 100 06/23/21 03:15 80 12 107/39 100 06/23/21 03:00 79 12 107/39 100 06/23/21 02:45 79 12 108/41 100 06/23/21 02:30 79 12 111/40 100 06/23/21 02:15 79 12 108/41 100 06/23/21 02:00 99.0 F 79 12 101/39 100 06/23/21 01:45 78 14 101/39 100 06/23/21 01:30 76 13 101/39 100 06/23/21 01:15 79 21 93/36 100 06/23/21 01:01 78 18 95/35 100 06/23/21 00:45 78 21 117/42 100 06/23/21 00:30 80 20 117/42 98 06/23/21 00:15 79 17 113/42 99 06/23/21 00:00 79 79 22 113/42 98 06/22/21 23:45 79 24 118/43 94 06/22/21 23:30 80 25 H 118/43 94 06/22/21 23:15 79 24 115/41 100 06/22/21 23:00 78 16 115/41 100 06/22/21 22:45 79 15 119/42 100 06/22/21 22:30 79 17 119/42 98 06/22/21 22:15 80 16 121/44 98 06/22/21 22:00 81 22 121/44 96 06/22/21 21:51 80 18 120/43 95 06/22/21 21:45 80 17 120/43 96 06/22/21 21:30 80 15 120/43 98 06/22/21 21:22 81 124/45 06/22/21 21:15 82 18 124/45 96 06/22/21 21:00 81 15 124/45 100 22/21 20:45 80 17 129/46 100 09/07/21 20:30 81 15 129/46 100 09/07/21 20:15 80 18 125/45 100 09/07/21 20:00 98.9 F 80 80 19 125/45 100 09/07/21 19:45 81 17 123/45 100 09/07/ 19:41 80 123/45 100 09/07/21 19:30 80 17 123/45 99 09/07/ 19:15 80 15 124/46 09/07/ 19:00 79 15 124/46 09/07/21 18:45 78 15 121/46 09/07/ 18:30 77 15 121/46 09/07/ 18:15 79 17 110/41 91 09/07/20 18:00 77 15 110/41 87 09/07/20 17:45 76 20 110/41 87 09/07/20 17:30 75 17 110/41 91 09/07/20 17:15 74 15 108/41 93 09/07/20 17:00 74 15 108/41 94 09/07/20 16:45 72 18 109/39 99 09/07/20 16:34 74 1 L 109/39 100 09/07/20 16:30 73 13 106/38 100 09/07/20 16:15 74 15 100/39 100 09/07/20 16:00 98.5 F 74 78 19 117/46 100 09/07/ 15:45 77 17 86/37 100 09/07/20 15:30 77 21 95/41 100 09/07/20 15:16 76 13 114/42 100 09/07/ 15:00 79 13 114/42 100 09/07/ 14:46 79 12 111/43 100 09/07/ 14:30 78 15 111/43 100 09/07/ 14:16 79 12 116/43 100 09/07/ 14:00 78 18 116/43 100 09/07/ 13:46 77 14 122/44 100 09/07/20 13:30 79 13 138/46 97 09/07/20 13:20 77 2 L 122/44 100 09/07/ 13:16 80 16 138/46 100 09/07/20 13:00 80 19 138/46 100 09/07/20 12:46 78 18 140/48 100 09/07/20 12:30 78 26 H 140/48 100 09/07/20 12:16 78 22 136/48 100 - Physical Examination General: Other (unresponsive on the vent) HEENT: Positive: Other (Pupils fixed) Cardiac: Positive: Reg Rate and Rhythm Neuro: Positive: Other (Unresponsive, on the vent) - Labs and Meds Comprehensive Metabolic Panel 09/07/20 Range/Units 15:35 Potassium 4.9 D (3.6-5.0) mmol/L - Allied health notes Allied health notes reviewed: nursing
--- NOTE | 2020-09-08 12:09 | Progress Note ---
Assessment and Plan Assessment and plan: 65-year-old female with DM, HTN, HLD, ESRD on HD MWF, multiple myeloma s/p chemotherapy and stem cell transplant and current tobacco abuse was admitted through emergency room s/p out of the hospital cardiac arrest with anoxic encephalopathy, hypertensive emergency, multifocal pneumonia. COVID-19 was ru led out, patient remains intubated on ventilatory support, with very poor prognosis, family is considering hospice have not decided yet. Very poor prognosis --Patient is hypotensive; Hold blood pressure medications, gentle hydration with fluid bolus monitor blood pressures. If no improvement consider vaso-pressors as needed --Hyperkalemia; potassium levels normal range Closely monitor electrolytes --COVID-19, ruled out --S/p out of the hospital cardiac arrest. Status post CPR per ACLS protocol Continue supportive care, cardiology following --Acute hypoxic respiratory failure/intubated on ventilatory support; Continue ventilator support, wean as tolerated, nebulizers, pulmonary following --Global/diffuse anoxic brain injury/encephalopathy as evidenced by MRI; 09/01/2020 Neurology evaluated the patient. Very poor prognosis, recommend palliative care --ESRD on HD; nephrology following, HD per schedule, HD is on hold in view of patient's family considering hospice --Pericardial effusion; stable --Severe cardiomegaly; Continue antifailure medications, diuretics, beta-blockers, BENJAMIN inhibitors Input output monitoring, cardiology following --Type II diabetes mellitus; Continue Accu-Chek sliding scale coverage tube feeding, long-acting insulin Lantus Tube feeding --Transaminitis; check LFTs, trend the levels --Hypertension; patient is hypotensive Hold antihypertensives , closely monitor --h/o Multiple myeloma: Patient follows with hematology oncologist at [place] --Current tobacco abuse; --Possible seizure activity; continue Keppra Seizure precautions --Nutrition; tube feeding per protocol --Full CODE STATUS --DC planning per case management Family considering inpatient hospice admission, Pending decision Consultants. Pulmonary critical care. Cardiology. Nephrology. Neurology. ID evaluations and recommendations Noted and appreciated DVT/GI prophylaxis: Subcu heparin, SCDs Protonix, Disposition: Hospice pending family decision Tests/imaging studies done so far: -08/29 CXR shows moderate enlargement of cardiac silhouette, diffuse bilateral mixed chest x-ray and airspace disease -08/30 CT C-spine shows no CT evidence of acute bony abnormality the cervical spine, biapical airspace disease -08/30 CT head/brain shows no CT evidence of acute intracranial hemorrhage, mild generalized parenchymal atrophy, no evidence of midline shift or mass-effect, moderate size right frontal scalp hematoma -08/30 CTA chest shows no pulmonary embolism, mildly enlarged heart, moderate sized pericardial effusion, diffuse bilateral mixed interstitial and airspace disease with associated atelectasis. -08/30 CT abdomen/pelvis with contrast shows mild fluid-filled distended stomach, dense atherosclerotic calcification of the abdominal aorta, multiple loops of moderately prominent fecalized small bowel, moderate amount of retained stool throughout the colon which may represent possible sequela impaction and constipation, multiple colonic diverticula, several calcified uterine fibroids, bibasilar mixed interstitial and airspace disease -08/30 bilateral lower extremity Doppler ultrasound shows no evidence of DVT in either lower extremity -08/30 CXR shows moderate bilateral lateral pulmonary opacities improvement -08/30 echocardiogram shows a small to moderate sized circumferential pericardial effusion, no tamponade, left ventricle systolic function normal, LVEF 55 to 60%, mild concentric LVH, trace MR, trace TR, no pulmonary hypertension -09/01 MRI brain showed diffuse restricted diffusion in the cerebral cortex consistent with global anoxic brain injury -08/31 EEG with slow wave findings The high probability of a clinically significant, sudden or life threatening deterioration of the [multi] system(s) required my full and direct attention, intervention and personal management. The aggregate critical care time was [35] minutes. This time is in addition to time spent performing reported procedures but includes the following: [x] Data Review and interpretation [x] Patient assessment and monitoring of vital signs [x] Documentation [x] Medication orders and management Brief history and daily hospital course This is 65-year-old female with diabetes mellitus, hypertension, hyperlipidemia, ESRD on HD MWF via left chest permacath, multiple myeloma s/p chemotherapy and stem cell transplant with right chest port, immature right upper extremity aVF and current tobacco abuse who presented to the emergency department on 08/30 s/p cardiac arrest after being found laying in driveway, unresponsive and in asystole by EMS after being called for shortness of breath. Patient was intubated by EMS and received 3 mg epinephrine, calcium and serum bicarbonate and ROSC was eventually achieved after 10 minutes of resuscitation. Recommend emergency department revealed hyperkalemia, CXR showed moderate enlargement of cardiac silhouette, diffuse bilateral mixed interstitial and airspace disease with considerations to pulmonary edema or multifocal infectious process. Patient was admitted to the hospitalist service s/p cardiac arrest with anoxic encephalopathy, ESRD on HD, hypertensive emergency, multifocal pneumonia and a and has a COVID-19 PUI. CCM, nephrology, neurology infectious disease and cardiology were consulted. 08/30: This morning neurology was consulted, patient noted to have leukocytosis, hyperkalemia, metabolic acidosis and hyperglycemia. Patient had hyperphosphatemia, hypomagnesemia also. Patient had hemodialysis today per nephrology. COVID-19 PCR negative. Patient was in ED holding and admitted to the ICU later during the day. Patient is sedated on fentanyl and propofol. At the time my examination she was assist-control, rate of 28, tidal and 450, 60 PEEP and FiO2 of 60%. 08/31: Patient received hemodialysis however she is hyperkalemia again which was treated with dextrose, insulin and Kionex. Patient received hemodialysis again today per nephrology. Patient continues with with meropenem until blood cultures per infectious disease. MRI brain and EEG pending, lactulose dis continued (which was started due to large stool burden). We will follow up on cultures and BMP. Patient also noted to be hyperglycemic and was started on long acting insulin. Family updated at bedside by nurse ela and Dr. Garces. 09/01: Patient was noted to be hypertensive yesterday evening and today so cardiology will start the patient on a nitroglycerin drip and IV metoprolol. CCM reduced rate. Patient received hemodialysis today and scheduled for MRI brain. Patient noted to be hyperkalemic and follow-up BMP shows a potassium of 4. Patient's MRI brain showed diffuse anoxic brain injury and Dr. Garces updated the family at bedside. 09/02: Patient had an MRI brain yesterday which showed global anoxic brain injury. At the time of my examination patient was on PCV CPAP with tidal volume 450, FiO2 of 30. Patient is hyperglycemic and insulin dosage increased. Family decision has not been made, Dr. Silva and / Dez updated family. Neurology has signed off 09/03: Patient continues to be hypoglycemic and long-acting insulin dosage increased. She is receiving hemodialysis today. Patient has a referral to inpatient hospice. No acute events reported overnight. CM speaking to family re hospice. Cardio changed BP medications to PO. CCM to discuss goals of care and rT to rest daily on AC at night/continue CPAP trials during the day. 09/04: Patient was noted to have possible seizure activity and was given 2 mg of Ativan by CCM. Patient was later hypotensive tensive and received a 250 mL normal saline bolus which was communicated to nephrology. Per nephrology will like to avoid excessive fluid boluses to prevent issues with fluid overload over the weekend. At the time of my exam patient was on assist control tidal line 450, rate of 12, PEEP of 6 and 25% FiO2. Patient noted to be hyper glycemic and long-acting insulin was changed. 09/05: Patient continues to be unresponsive, Keppra was added for possible seizure disorder yesterday. No family at the bedside, patient to go to hospice most likely on Sunday. 09/07; awaiting hospice placement, pending family's decision. Hyper kalemia, insulin and dextrose, IV calcium gluconate and Kayexalate Very poor prognosis, full CODE STATUS 09/08; clinically no change, patient remained intubated on ventilator support Ventilatory settings; AC, 450 tidal volume, FiO2 45%, PEEP 8, peak flow 60 Family considering hospice, pending decision History Interval history: I have seen and examined the patient at the bedside this morning in ICU Patient's chart and medications reviewed Clinically no change , patient remains critically ill Unresponsive intubated on ventilatory support Full CODE STATUS Mild hypotension, started on fluid bolus Vital signs noted Hospitalist Physical - Constitutional Vitals: Temp Pulse Resp BP Pulse Ox 97.6 F 72 12 79/33 100 09/08/20 12:08 09/08/20 11:57 09/08/20 11:30 09/08/20 11:57 09/08/20 11:57 General appearance: Present: no acute distress, cachectic, other (Intubated on vent, unresponsive) - EENT ENT: other (ET tube and Dobbhoff in place) - Neck Neck: Present: supple, other (ET tube in place) - Respiratory Respiratory effort: normal Respiratory: bilateral: diminished, rhonchi, negative: rales, wheezing - Cardiovascular Rhythm: regular Heart Sounds: Present: S1 & S2 - Extremities Extremities: no ischemia, No edema - Abdominal General gastrointestinal: soft, non-tender, non-distended, normal bowel sounds - Integumentary Integumentary: Present: clear, warm - Psychiatric Psychiatric: other (Unresponsive) - Neurologic Neurologic: other (Intubated on vent) HEART Score - HEART Score EKG: Normal Age: > 65 Troponin: Troponin T 0.085 ng/mL (0.00-0.029) H 08/30/20 00:15 Troponin: < normal limit - Critical Actions Critical Actions: 0-3 pts:0.9-1.7%risk of adverse cardiac event.Candidate for discharge Results - Labs CBC & Chem 7: 09/07/20 04:12 09/07/20 15:35 Labs: Laboratory Last Values WBC 8.7 K/mm3 (4.5-11.0) 09/07/20 04:12 RBC 2.32 M/mm3 (3.65-5.03) L 09/07/20 04:12 Hgb 7.9 gm/dl (10.1-14.3) L 09/07/20 04:12 Hct 24.0 % (30.3-42.9) L 09/07/20 04:12 MCV 104 fl (79-97) H 09/07/20 04:12 MCH 34 pg (28-32) H 09/07/20 04:12 MCHC 33 % (30-34) 09/07/20 04:12 RDW 17.7 % (13.2-15.2) H 09/07/20 04:12 Plt Count 116 K/mm3 (140-440) L 09/07/20 04:12 Lymph % (Auto) 8.5 % (13.4-35.0) L 09/07/20 04:12 [place] % (Auto) 9.0 % (0.0-7.3) H 09/07/20 04:12 Eos % (Auto) 0.6 % (0.0-4.3) 09/07/20 04:12 Baso % (Auto) 0.6 % (0.0-1.8) 09/07/20 04:12 Lymph # (Auto) 0.7 K/mm3 (1.2-5.4) L 09/07/20 04:12 [place] # (Auto) 0.8 K/mm3 (0.0-0.8) 09/07/20 04:12 Eos # (Auto) 0.1 K/mm3 (0.0-0.4) 09/07/20 04:12 Baso # (Auto) 0.1 K/mm3 (0.0-0.1) 09/07/20 04:12 Add Manual Diff Complete 08/30/20 00:15 Total Counted 100 08/30/20 00:15 Seg Neutrophils % 81.3 % (40.0-70.0) H 09/07/20 04:12 Seg Neuts % (Manual) 57.0 % (40.0-70.0) 08/30/20 00:15 Band Neutrophils % 1.0 % 08/30/20 00:15 Lymphocytes % (Manual) 34.0 % (13.4-35.0) 08/30/20 00:15 Monocytes % (Manual) 5.0 % (0.0-7.3) 08/30/20 00:15 Eosinophils % (Manual) 3.0 % (0.0-4.3) 08/30/20 00:15 Nucleated RBC % 1.0 % (0.0-0.9) H 08/30/20 00:15 Seg Neutrophils # 7.1 K/mm3 (1.8-7.7) 09/07/20 04:12 Seg Neutrophils # Man 5.6 K/mm3 (1.8-7.7) 08/30/20 00:15 Band Neutrophils # 0.1 K/mm3 08/30/20 00:15 Lymphocytes # (Manual) 3.3 K/mm3 (1.2-5.4) 08/30/20 00:15 Abs React Lymphs (Man) 0.0 K/mm3 08/30/20 00:15 Monocytes # (Manual) 0.5 K/mm3 (0.0-0.8) 08/30/20 00:15 Eosinophils # (Manual) 0.3 K/mm3 (0.0-0.4) 08/30/20 00:15 Basophils # (Manual) 0.0 K/mm3 (0.0-0.1) 08/30/20 00:15 Metamyelocytes # 0.0 K/mm3 08/30/20 00:15 Myelocytes # 0.0 K/mm3 08/30/20 00:15 Promyelocytes # 0.0 K/mm3 08/30/20 00:15 Blast Cells # 0.0 K/mm3 08/30/20 00:15 WBC Morphology Not Reportable 08/30/20 00:15 Hypersegmented Neuts Not Reportable 08/30/20 00:15 Hyposegmented Neuts Not Reportable 08/30/20 00:15 Hypogranular Neuts Not Reportable 08/30/20 00:15 Smudge Cells Not Reportable 08/30/20 00:15 Toxic Granulation Not Reportable 08/30/20 00:15 Toxic Vacuolation Not Reportable 08/30/20 00:15 Dohle Bodies Not Reportable 08/30/20 00:15 Pelger-Huet Anomaly Not Reportable 08/30/20 00:15 Lolita Rods Not Reportable 08/30/20 00:15 Platelet Estimate Consistent w auto 08/30/20 00:15 Clumped Platelets Not Reportable 08/30/20 00:15 Plt Clumps, EDTA Not Reportable 08/30/20 00:15 Large Platelets Not Reportable 08/30/20 00:15 Giant Platelets Not Reportable 08/30/20 00:15 Platelet Satelliting Not Reportable 08/30/20 00:15 Plt Morphology Comment Not Reportable 08/30/20 00:15 RBC Morphology Not Reportable 08/30/20 00:15 Dimorphic RBCs Not Reportable 08/30/20 00:15 Polychromasia Not Reportable 08/30/20 00:15 Hypochromasia Not Reportable 08/30/20 00:15 Poikilocytosis Not Reportable 08/30/20 00:15 Anisocytosis 1+ 08/30/20 00:15 Microcytosis Not Reportable 08/30/20 00:15 Macrocytosis Not Reportable 08/30/20 00:15 Spherocytes Not Reportable 08/30/20 00:15 Pappenheimer Bodies Not Reportable 08/30/20 00:15 Sickle Cells Not Reportable 08/30/20 00:15 Target Cells Not Reportable 08/30/20 00:15 Tear Drop Cells Not Reportable 08/30/20 00:15 Ovalocytes Not Reportable 08/30/20 00:15 Helmet Cells Not Reportable 08/30/20 00:15 Anton-[place] Bodies Not Reportable 08/30/20 00:15 [place] Rings Not Reportable 08/30/20 00:15 [place] Cells Not Reportable 08/30/20 00:15 Bite Cells Not Reportable 08/30/20 00:15 Crenated Cell Not Reportable 08/30/20 00:15 Elliptocytes Not Reportable 08/30/20 00:15 Acanthocytes (Spur) Not Reportable 08/30/20 00:15 Rouleaux Not Reportable 08/30/20 00:15 Hemoglobin C Crystals Not Reportable 08/30/20 00:15 Schistocytes Not Reportable 08/30/20 00:15 Malaria parasites Not Reportable 08/30/20 00:15 Maurice Bodies Not Reportable 08/30/20 00:15 Hem Pathologist Commnt No 08/30/20 00:15 PT 12.8 Sec. (12.2-14.9) 08/31/20 05:45 INR 0.90 (0.87-1.13) 08/31/20 05:45 D-Dimer > 51461 ng/mlDDU (0-234) H 08/30/20 03:10 ABG pH 7.413 (7.320-7.450) 09/07/20 04:00 POC ABG pCO2 37.4 mmHg (32.0-48.0) 09/07/20 04:00 ABG pCO2 38.0 mm Hg 09/02/20 03:40 POC ABG pO2 62.2 mmHg (83-108) L 09/07/20 04:00 ABG pO2 83.1 mm Hg (80.0-90.0) 09/02/20 03:40 POC ABG HCO3 23.3 09/07/20 04:00 ABG HCO3 29.4 mmol/L (20.0-26.0) H 09/02/20 03:40 ABG O2 Saturation 89.0 (0-100) 09/07/20 04:00 ABG O2 Content 11.2 (0.0-44) 09/02/20 03:40 POC ABG Base Excess -1.1 09/07/20 04:00 ABG Base Excess 5.9 mmol/L (-2.0-3.0) H 09/02/20 03:40 ABG Hemoglobin 8.0 (12.0-17.5) L 09/07/20 04:00 ABG Oxyhemoglobin 87.8 (94-98) L 09/07/20 04:00 ABG Carboxyhemoglobin 1.9 % (0.0-5.0) 09/02/20 03:40 ABG Methemoglobin 0.1 (0.0-1.5) 09/07/20 04:00 ABG Sodium 127.3 mmol/L (136.0-145.0) L 09/07/20 04:00 ABG Potassium 5.7 mmol/L (3.40-4.50) H 09/07/20 04:00 ABG Chloride 89.0 mmol/L (98-107) L 09/07/20 04:00 ABG Glucose 232 mg/dL (65-95) H 09/07/20 04:00 Oxyhemoglobin 94.8 % (95.0-99.0) L 09/02/20 03:40 Carboxyhemoglobin 1.2 (0.5-1.5) 09/07/20 04:00 FiO2 30 % 09/02/20 03:40 FiO2 % 45.0 09/07/20 04:00 Sodium 133 mmol/L (137-145) L 09/07/20 04:12 Potassium 4.9 mmol/L (3.6-5.0) D 09/07/20 15:35 Chloride 85.8 mmol/L (98-107) L 09/07/20 04:12 Carbon Dioxide 23 mmol/L (22-30) 09/07/20 04:12 Anion Gap 30 mmol/L 09/07/20 04:12 BUN 132 mg/dL (7-17) H 09/07/20 04:12 Creatinine 9.8 mg/dL (0.6-1.2) H 09/07/20 04:12 Estimated GFR 5 ml/min 09/07/20 04:12 BUN/Creatinine Ratio 13 % 09/07/20 04:12 Glucose 227 mg/dL (65-100) H 09/07/20 04:12 POC Glucose 180 mg/dL (70-105) H 09/08/20 01:07 Calcium 7.9 mg/dL (8.4-10.2) L 09/07/20 04:12 Phosphorus 11.50 mg/dL (2.5-4.5) H 08/30/20 00:15 Magnesium 3.80 mg/dL (1.7-2.3) H 08/30/20 00:15 Ferritin 830.0 ng/mL (10.0-200.0) H 08/30/20 03:10 Total Bilirubin 0.40 mg/dL (0.1-1.2) 08/30/20 15:03 AST 68 units/L (5-40) H 08/30/20 15:03 ALT 41 units/L (7-56) 08/30/20 15:03 Alkaline Phosphatase 364 units/L (35-129) H 08/30/20 15:03 Lactate Dehydrogenase 400 units/L (91-180) H 08/30/20 03:10 Troponin T 0.085 ng/mL (0.00-0.029) H 08/30/20 00:15 C-Reactive Protein 0.20 mg/dL (0.00-1.30) 08/30/20 03:10 Total Protein 6.4 g/dL (6.3-8.2) 08/30/20 15:03 Albumin 3.7 g/dL (3.9-5) L 08/30/20 15:03 Albumin/Globulin Ratio 1.4 % 08/30/20 15:03 Triglycerides 61 mg/dL (2-149) 08/30/20 00:15 Cholesterol 150 mg/dL (50-199) 08/30/20 00:15 LDL Cholesterol Direct 71 mg/dL (50-130) 08/30/20 00:15 HDL Cholesterol 66 mg/dL (40-59) H 08/30/20 00:15 Cholesterol/HDL Ratio 2.27 % 08/30/20 00:15 Procalcitonin 4.16 ng/mL (<0.15) 08/30/20 03:10 Arterial Blood Glucose 232 mg/dL (65-95) H 09/07/20 04:00 Arterial Blood Ionized Calcium 3.7 mg/dL (4.6-5.3) L 09/07/20 04:00 Coronavirus (PCR) Negative (Negative) 08/30/20 Unknown Hepatitis A IgM Ab Non-reactive (NonReactive) 08/30/20 07:35 Hep Bs Antigen Non-reactive (Negative) 08/30/20 07:35 Hep B Core IgM Ab Non-reactive (NonReactive) 08/30/20 07:35 Hepatitis C Antibody Non-reactive (NonReactive) 08/30/20 07:35 Johns/IV: Voiding Method Incontinent Active Medications - Current Medications Current Medications: Generic Name Dose Route Start Last Admin Trade Name Freq PRN Reason Stop Dose Admin Acetaminophen 650 mg 09/01/20 00:27 09/04/20 04:34 Acetaminophen 325 Mg/10.15 Ml Oral Liqd Unit Dose FEEDTUBE 650 mg Q6H PRN Administration Non Cardiac Pain or Temp>100.5 Amlodipine Besylate 10 mg 09/03/20 11:00 09/08/20 09:08 Amlodipine 10 Mg Tab PO Not Given QDAY ANIYAH Lipase/Protease/Amylase 1 each 08/30/20 14:27 Lipase 10,500/Protease 25,000/Amylase 43,750 (Units) Dr Duran FEEDTUBE PRN PRN For Clogged Feeding Tube Dextrose 50 ml 08/30/20 19:48 Dextrose 50% In Water (25gm) 50 Ml Syringe IV Q30MIN PRN Hypoglycemia Protocol Famotidine 20 mg 09/02/20 10:00 09/08/20 09:07 Famotidine 20 Mg Tab PO 20 mg DAILY ANIYAH Administration Heparin Sodium (Porcine) 5,000 unit 08/30/20 06:00 09/08/20 06:25 Heparin 5,000 Unit/1 Ml Vial SUB-Q 5,000 unit Q8HR ANIYAH Administration Hydralazine HCl 10 mg 08/31/20 18:14 09/04/20 04:34 Hydralazine 20 Mg/1 Ml Inj IV 10 mg Q4HR PRN Administration Hypertension Hydrophilic Ointment 1 applic 08/30/20 14:05 Lip Therapy Vaseline TP Q2HR PRN Dry Lips Sodium Chloride 100 mls @ 999 mls/hr 08/30/20 09:00 Nacl 0.9% IV ARMIDA PRN Hypotension Insulin Glargine 30 units 09/03/20 10:00 09/08/20 09:06 Insulin Glargine 100 Units/Ml SUB-Q 30 units DAILY ANIYAH Administration Insulin Human Lispro 5 unit 09/04/20 08:00 09/08/20 09:07 Insulin Lispro 100 Unit/Ml SUB-Q 5 unit TID ANIYAH Administration Insulin Human Regular 0 units 09/01/20 10:00 09/08/20 09:10 Insulin Regular, Human 100 Units/1 Ml SUB-Q 3 units Q4HR ANIYAH Administration Protocol Levetiracetam 750 mg 09/04/20 22:00 09/08/20 09:07 Levetiracetam 500 Mg/5 Ml Oral Liqd PO 750 mg BID ANIYAH Administration Magnesium Hydroxide 30 ml 08/30/20 04:41 Magnesium Hydroxide (Mom) Oral Liqd Udc PO Q4H PRN Constipation Metoprolol Tartrate 50 mg 09/03/20 11:00 09/08/20 09:08 Metoprolol Tartrate 50 Mg Tab PO Not Given BID ANIYAH Multi-Ingred Cream/Lotion/Oil/Oint 1 applic 08/30/20 14:05 08/31/20 01:17 Mineral Oil/Petrolatum, White Ophth Oint 3.5 Gm OU 1 applic Q4HR PRN Administration Dry Eye(s) Nitroglycerin 0.4 mg 09/04/20 06:00 09/08/20 06:24 Nitroglycerin 0.4 Mg Patch 24hr TD Not Given QDAY@0600 [facility] Ondansetron HCl 4 mg 08/30/20 04:41 Ondansetron 4 Mg/2 Ml Inj IV Q8H PRN Nausea And Vomiting Senna/Docusate Sodium 1 tab 08/30/20 22:00 09/08/20 09:07 Sennosides/Docusate Sodium 8.6/50 Mg Tab FEEDTUBE 1 tab BID ANIYAH Administration Simple Syrup 15 ml 08/30/20 14:27 Simple Syrup 15 Ml FEEDTUBE PRN PRN Hypoglycemia Simple Syrup 30 ml 08/30/20 14:27 Simple Syrup 15 Ml FEEDTUBE PRN PRN Hypoglycemia Sodium Bicarbonate 325 mg 08/30/20 14:27 09/05/20 08:26 Sodium Bicarbonate 325 Mg Tab FEEDTUBE 325 mg PRN PRN Administration For Clogged Feeding Tube Sodium Chloride 10 ml 08/30/20 10:00 09/08/20 09:08 Sodium Chloride 0.9% 10 Ml Flush Syringe IV 10 ml BID ANIYAH Administration Sodium Chloride 10 ml 08/30/20 04:41 Sodium Chloride 0.9% 10 Ml Flush Syringe IV PRN PRN LINE FLUSH Nutrition/Malnutrition Assess - Dietary Evaluation Nutrition/Malnutrition Findings: Nutrition Notes Start: 08/30/20 07:40 Freq: Status: Active Protocol: Document 09/06/20 13:24 RADHA (Rec: 09/06/20 13:25 [facility] [id number]) Nutrition Notes Initial or Follow up Brief Note Current Diet TF - Nepro at 35ml/hr Subjective/Other Information Pt was tolerating TF at goal rate on 09/03. She remains on vent support; possible transfer to hospice. Nutrition Intervention Follow-Up By: 09/10/20 Additional Comments F/U: stable TF, vent status, wt
[2020-09-08] MEDS: MIDODRINE 5 MG TAB PO SCH ×2 (14:16→19:20)
[2020-09-09] MEDS: INSULIN REGULAR, HUMAN 100 UNITS/1 ML SUB-Q SCH ×6 (02:44→18:29)
[2020-09-09] MEDS: HEPARIN 5,000 UNIT/1 ML VIAL SUB-Q SCH ×3 (06:17→21:53)
[2020-09-09] MEDS: NITROGLYCERIN 0.4 MG PATCH 24HR TD SCH (06:28)
--- NOTE | 2020-09-09 08:08 | Progress Note ---
Assessment and Plan Assessment and plan: 65-year-old female with DM, HTN, HLD, ESRD on HD MWF, multiple myeloma s/p chemotherapy and stem cell transplant and current tobacco abuse was admitted through emergency room s/p out of the hospital cardiac arrest with anoxic encephalopathy, hypertensive emergency, multifocal pneumonia. COVID-19 was ru led out, patient remains intubated on ventilatory support, with very poor prognosis, family is considering hospice have not decided yet. Very poor prognosis --Patient is hypotensive; Hold blood pressure medications, gentle hydration with fluid bolus monitor blood pressures. If no improvement consider vaso-pressors as needed --Hyperkalemia; potassium levels normal range Closely monitor electrolytes --COVID-19, ruled out --S/p outside the hospital cardiac arrest; Status post CPR per ACLS protocol Continue supportive care, cardiology following --Acute hypoxic respiratory failure/intubated on ventilatory support; Continue ventilator support, wean as tolerated, nebulizers, pulmonary following --Global/diffuse anoxic brain injury/encephalopathy as evidenced by MRI; 09/01/2020 Neurology evaluated the patient. Very poor prognosis, recommend palliative care --ESRD on HD; nephrology following, HD per schedule, HD is on hold in view of patient's family considering hospice --Pericardial effusion; stable --Severe cardiomegaly; Continue antifailure medications, diuretics, beta-blockers, BENJAMIN inhibitors Input output monitoring, cardiology following --Type II diabetes mellitus; Continue Accu-Chek sliding scale coverage tube feeding, long-acting insulin Lantus Tube feeding --Transaminitis; check LFTs, trend the levels --Hypertension; patient is hypotensive Hold antihypertensives , closely monitor --h/o Multiple myeloma: Patient follows with hematology oncologist at [place] --Current tobacco abuse; --Possible seizure activity; continue Keppra Seizure precautions --Nutrition; tube feeding per protocol --Full CODE STATUS --DC planning per case management Family considering inpatient hospice admission, Pending decision Consultants. Pulmonary critical care. Cardiology. Nephrology. Neurology. ID evaluations and recommendations Noted and appreciated DVT/GI prophylaxis: Subcu heparin, SCDs Protonix, Disposition: Hospice pending family decision Tests/imaging studies done so far: -08/29 CXR shows moderate enlargement of cardiac silhouette, diffuse bilateral mixed chest x-ray and airspace disease -08/30 CT C-spine shows no CT evidence of acute bony abnormality the cervical spine, biapical airspace disease -08/30 CT head/brain shows no CT evidence of acute intracranial hemorrhage, mild generalized parenchymal atrophy, no evidence of midline shift or mass-effect, moderate size right frontal scalp hematoma -08/30 CTA chest shows no pulmonary embolism, mildly enlarged heart, moderate sized pericardial effusion, diffuse bilateral mixed interstitial and airspace disease with associated atelectasis. -08/30 CT abdomen/pelvis with contrast shows mild fluid-filled distended stomach, dense atherosclerotic calcification of the abdominal aorta, multiple loops of moderately prominent fecalized small bowel, moderate amount of retained stool throughout the colon which may represent possible sequela impaction and constipation, multiple colonic diverticula, several calcified uterine fibroids, bibasilar mixed interstitial and airspace disease -08/30 bilateral lower extremity Doppler ultrasound shows no evidence of DVT in either lower extremity -08/30 CXR shows moderate bilateral lateral pulmonary opacities improvement -08/30 echocardiogram shows a small to moderate sized circumferential pericardial effusion, no tamponade, left ventricle systolic function normal, LVEF 55 to 60%, mild concentric LVH, trace MR, trace TR, no pulmonary hypertension -09/01 MRI brain showed diffuse restricted diffusion in the cerebral cortex consistent with global anoxic brain injury -08/31 EEG with slow wave findings The high probability of a clinically significant, sudden or life threatening deterioration of the [multi] system(s) required my full and direct attention, intervention and personal management. The aggregate critical care time was [35] minutes. This time is in addition to time spent performing reported procedures but includes the following: [x] Data Review and interpretation [x] Patient assessment and monitoring of vital signs [x] Documentation [x] Medication orders and management Brief history and daily hospital course This is 65-year-old female with diabetes mellitus, hypertension, hyperlipidemia, ESRD on HD MWF via left chest permacath, multiple myeloma s/p chemotherapy and stem cell transplant with right chest port, immature right upper extremity aVF and current tobacco abuse who presented to the emergency department on 08/30 s/p cardiac arrest after being found laying in driveway, unresponsive and in asystole by EMS after being called for shortness of breath. Patient was intubated by EMS and received 3 mg epinephrine, calcium and serum bicarbonate and ROSC was eventually achieved after 10 minutes of resuscitation. Recommend emergency department revealed hyperkalemia, CXR showed moderate enlargement of c ardiac silhouette, diffuse bilateral mixed interstitial and airspace disease with considerations to pulmonary edema or multifocal infectious process. Patient was admitted to the hospitalist service s/p cardiac arrest with anoxic encephalopathy, ESRD on HD, hypertensive emergency, multifocal pneumonia and a and has a COVID-19 PUI. CCM, nephrology, neurology infectious disease and cardiology were consulted. 08/30: This morning neurology was consulted, patient noted to have leukocytosis, hyperkalemia, metabolic acidosis and hyperglycemia. Patient had hyperphosphatemia, hypomagnesemia also. Patient had hemodialysis today per nephrology. COVID-19 PCR negative. Patient was in ED holding and admitted to the ICU later during the day. Patient is sedated on fentanyl and propofol. At the time my examination she was assist-control, rate of 28, tidal and 450, 60 PEEP and FiO2 of 60%. 08/31: Patient received hemodialysis however she is hyperkalemia again which was treated with dextrose, insulin and Kionex. Patient received hemodialysis again today per nephrology. Patient continues with with meropenem until blood cultures per infectious disease. MRI brain and EEG pending, lactulose di scontinued (which was started due to large stool burden). We will follow up on cultures and BMP. Patient also noted to be hyperglycemic and was started on long acting insulin. Family updated at bedside by nurse ela and Dr. Garces. 09/01: Patient was noted to be hypertensive yesterday evening and today so cardiology will start the patient on a nitroglycerin drip and IV metoprolol. CCM reduced rate. Patient received hemodialysis today and scheduled for MRI brain. Patient noted to be hyperkalemic and follow-up BMP shows a potassium of 4. Patient's MRI brain showed diffuse anoxic brain injury and Dr. Garces updated the family at bedside. 09/02: Patient had an MRI brain yesterday which showed global anoxic brain injury. At the time of my examination patient was on PCV CPAP with tidal volume 450, FiO2 of 30. Patient is hyperglycemic and insulin dosage increased. Family decision has not been made, Dr. Silva and / Dez updated family. Neurology has signed off 09/03: Patient continues to be hypoglycemic and long-acting insulin dosage increased. She is receiving hemodialysis today. Patient has a referral to inpatient hospice. No acute events reported overnight. CM speaking to family re hospice. Cardio changed BP medications to PO. CCM to discuss goals of care and rT to rest daily on AC at night/continue CPAP trials during the day. 09/04: Patient was noted to have possible seizure activity and was given 2 mg of Ativan by CCM. Patient was later hypotensive tensive and received a 250 mL normal saline bolus which was communicated to nephrology. Per nephrology will like to avoid excessive fluid boluses to prevent issues with fluid overload over the weekend. At the time of my exam patient was on assist control tidal line 450, rate of 12, PEEP of 6 and 25% FiO2. Patient noted to be hyper glycemic and long-acting insulin was changed. 09/05: Patient continues to be unresponsive, Keppra was added for possible seizure disorder yesterday. No family at the bedside, patient to go to hospice most likely on Sunday. 09/07; awaiting hospice placement, pending family's decision. Hyper kalemia, insulin and dextrose, IV calcium gluconate and Kayexalate Very poor prognosis, full CODE STATUS 09/08; clinically no change, patient remained intubated on ventilator support Ventilatory settings; AC, 450 tidal volume, FiO2 45%, PEEP 8, peak flow 60 Family considering hospice, pending decision 09/09; clinically no change, intubated on ventilatory support Severe anoxic brain injury, family still have to make the decision for hospice History Interval history: I have seen and examined the patient at the bedside Patient's chart and medications reviewed Patient is unresponsive intubated on vent Clinically no change Pending family's decision for hospice No new overnight events reported by nursing staff Hospitalist Physical - Constitutional Vitals: Temp Pulse Resp BP Pulse Ox 97.0 F L 62 18 135/50 100 09/09/20 07:00 09/09/20 06:00 09/09/20 06:00 09/09/20 06:00 09/09/20 06:00 General appearance: Present: no acute distress, cachectic, other (Intubated on vent, unresponsive) - EENT Eyes: Present: PERRL, EOM intact - Neck Neck: Present: supple, normal ROM - Respiratory Respiratory effort: normal, labored Respiratory: bilateral: diminished, rhonchi, negative: rales, wheezing - Cardiovascular Rhythm: regular Heart Sounds: Present: S1 & S2 - Extremities Extremities: no ischemia, No edema - Abdominal General gastrointestinal: soft, non-tender, non-distended, normal bowel sounds - Integumentary Integumentary: Present: clear, warm - Psychiatric Psychiatric: other - Neurologic Neurologic: other (Intubated on vent intubated on vent) HEART Score - HEART Score EKG: Normal Age: > 65 Troponin: Troponin T 0.085 ng/mL (0.00-0.029) H 08/30/20 00:15 Troponin: < normal limit - Critical Actions Critical Actions: 0-3 pts:0.9-1.7%risk of adverse cardiac event.Candidate for discharge Results - Labs CBC & Chem 7: 09/07/20 04:12 09/07/20 15:35 Labs: Laboratory Last Values WBC 8.7 K/mm3 (4.5-11.0) 09/07/20 04:12 RBC 2.32 M/mm3 (3.65-5.03) L 09/07/20 04:12 Hgb 7.9 gm/dl (10.1-14.3) L 09/07/20 04:12 Hct 24.0 % (30.3-42.9) L 09/07/20 04:12 MCV 104 fl (79-97) H 09/07/20 04:12 MCH 34 pg (28-32) H 09/07/20 04:12 MCHC 33 % (30-34) 09/07/20 04:12 RDW 17.7 % (13.2-15.2) H 09/07/20 04:12 Plt Count 116 K/mm3 (140-440) L 09/07/20 04:12 Lymph % (Auto) 8.5 % (13.4-35.0) L 09/07/20 04:12 [place] % (Auto) 9.0 % (0.0-7.3) H 09/07/20 04:12 Eos % (Auto) 0.6 % (0.0-4.3) 09/07/20 04:12 Baso % (Auto) 0.6 % (0.0-1.8) 09/07/20 04:12 Lymph # (Auto) 0.7 K/mm3 (1.2-5.4) L 09/07/20 04:12 [place] # (Auto) 0.8 K/mm3 (0.0-0.8) 09/07/20 04:12 Eos # (Auto) 0.1 K/mm3 (0.0-0.4) 09/07/20 04:12 Baso # (Auto) 0.1 K/mm3 (0.0-0.1) 09/07/20 04:12 Add Manual Diff Complete 08/30/20 00:15 Total Counted 100 08/30/20 00:15 Seg Neutrophils % 81.3 % (40.0-70.0) H 09/07/20 04:12 Seg Neuts % (Manual) 57.0 % (40.0-70.0) 08/30/20 00:15 Band Neutrophils % 1.0 % 08/30/20 00:15 Lymphocytes % (Manual) 34.0 % (13.4-35.0) 08/30/20 00:15 Monocytes % (Manual) 5.0 % (0.0-7.3) 08/30/20 00:15 Eosinophils % (Manual) 3.0 % (0.0-4.3) 08/30/20 00:15 Nucleated RBC % 1.0 % (0.0-0.9) H 08/30/20 00:15 Seg Neutrophils # 7.1 K/mm3 (1.8-7.7) 09/07/20 04:12 Seg Neutrophils # Man 5.6 K/mm3 (1.8-7.7) 08/30/20 00:15 Band Neutrophils # 0.1 K/mm3 08/30/20 00:15 Lymphocytes # (Manual) 3.3 K/mm3 (1.2-5.4) 08/30/20 00:15 Abs React Lymphs (Man) 0.0 K/mm3 08/30/20 00:15 Monocytes # (Manual) 0.5 K/mm3 (0.0-0.8) 08/30/20 00:15 Eosinophils # (Manual) 0.3 K/mm3 (0.0-0.4) 08/30/20 00:15 Basophils # (Manual) 0.0 K/mm3 (0.0-0.1) 08/30/20 00:15 Metamyelocytes # 0.0 K/mm3 08/30/20 00:15 Myelocytes # 0.0 K/mm3 08/30/20 00:15 Promyelocytes # 0.0 K/mm3 08/30/20 00:15 Blast Cells # 0.0 K/mm3 08/30/20 00:15 WBC Morphology Not Reportable 08/30/20 00:15 Hypersegmented Neuts Not Reportable 08/30/20 00:15 Hyposegmented Neuts Not Reportable 08/30/20 00:15 Hypogranular Neuts Not Reportable 08/30/20 00:15 Smudge Cells Not Reportable 08/30/20 00:15 Toxic Granulation Not Reportable 08/30/20 00:15 Toxic Vacuolation Not Reportable 08/30/20 00:15 Dohle Bodies Not Reportable 08/30/20 00:15 Pelger-Huet Anomaly Not Reportable 08/30/20 00:15 Lolita Rods Not Reportable 08/30/20 00:15 Platelet Estimate Consistent w auto 08/30/20 00:15 Clumped Platelets Not Reportable 08/30/20 00:15 Plt Clumps, EDTA Not Reportable 08/30/20 00:15 Large Platelets Not Reportable 08/30/20 00:15 Giant Platelets Not Reportable 08/30/20 00:15 Platelet Satelliting Not Reportable 08/30/20 00:15 Plt Morphology Comment Not Reportable 08/30/20 00:15 RBC Morphology Not Reportable 08/30/20 00:15 Dimorphic RBCs Not Reportable 08/30/20 00:15 Polychromasia Not Reportable 08/30/20 00:15 Hypochromasia Not Reportable 08/30/20 00:15 Poikilocytosis Not Reportable 08/30/20 00:15 Anisocytosis 1+ 08/30/20 00:15 Microcytosis Not Reportable 08/30/20 00:15 Macrocytosis Not Reportable 08/30/20 00:15 Spherocytes Not Reportable 08/30/20 00:15 Pappenheimer Bodies Not Reportable 08/30/20 00:15 Sickle Cells Not Reportable 08/30/20 00:15 Target Cells Not Reportable 08/30/20 00:15 Tear Drop Cells Not Reportable 08/30/20 00:15 Ovalocytes Not Reportable 08/30/20 00:15 Helmet Cells Not Reportable 08/30/20 00:15 At[place] Bodies Not Reportable 08/30/20 00:15 [place] Rings Not Reportable 08/30/20 00:15 Jigar Cells Not Reportable 08/30/20 00:15 Bite Cells Not Reportable 08/30/20 00:15 Crenated Cell Not Reportable 08/30/20 00:15 Elliptocytes Not Reportable 08/30/20 00:15 Acanthocytes (Spur) Not Reportable 08/30/20 00:15 Rouleaux Not Reportable 08/30/20 00:15 Hemoglobin C Crystals Not Reportable 08/30/20 00:15 Schistocytes Not Reportable 08/30/20 00:15 Malaria parasites Not Reportable 08/30/20 00:15 Maurice Bodies Not Reportable 08/30/20 00:15 Hem Pathologist Commnt No 08/30/20 00:15 PT 12.8 Sec. (12.2-14.9) 08/31/20 05:45 INR 0.90 (0.87-1.13) 08/31/20 05:45 D-Dimer > 70128 ng/mlDDU (0-234) H 08/30/20 03:10 ABG pH 7.367 (7.320-7.450) 09/09/20 03:43 POC ABG pCO2 42.0 mmHg (32.0-48.0) 09/09/20 03:43 ABG pCO2 38.0 mm Hg 09/02/20 03:40 POC ABG pO2 58.6 mmHg (83-108) L 09/09/20 03:43 ABG pO2 83.1 mm Hg (80.0-90.0) 09/02/20 03:40 POC ABG HCO3 23.6 09/09/20 03:43 ABG HCO3 29.4 mmol/L (20.0-26.0) H 09/02/20 03:40 ABG O2 Saturation 86.2 (0-100) 09/09/20 03:43 ABG O2 Content 11.2 (0.0-44) 09/02/20 03:40 POC ABG Base Excess -1.6 09/09/20 03:43 ABG Base Excess 5.9 mmol/L (-2.0-3.0) H 09/02/20 03:40 ABG Hemoglobin 6.8 (12.0-17.5) L 09/09/20 03:43 ABG Oxyhemoglobin 84.7 (94-98) L 09/09/20 03:43 ABG Carboxyhemoglobin 1.9 % (0.0-5.0) 09/02/20 03:40 ABG Methemoglobin 0.2 (0.0-1.5) 09/09/20 03:43 ABG Sodium 131.6 mmol/L (136.0-145.0) L 09/09/20 03:43 ABG Potassium 4.0 mmol/L (3.40-4.50) 09/09/20 03:43 ABG Chloride 88.0 mmol/L (98-107) L 09/09/20 03:43 ABG Glucose 214 mg/dL (65-95) H 09/09/20 03:43 Oxyhemoglobin 94.8 % (95.0-99.0) L 09/02/20 03:40 Carboxyhemoglobin 1.5 (0.5-1.5) 09/09/20 03:43 FiO2 30 % 09/02/20 03:40 FiO2 % 25.0 09/09/20 03:43 Sodium 133 mmol/L (137-145) L 09/07/20 04:12 Potassium 4.9 mmol/L (3.6-5.0) D 09/07/20 15:35 Chloride 85.8 mmol/L (98-107) L 09/07/20 04:12 Carbon Dioxide 23 mmol/L (22-30) 09/07/20 04:12 Anion Gap 30 mmol/L 09/07/20 04:12 BUN 132 mg/dL (7-17) H 09/07/20 04:12 Creatinine 9.8 mg/dL (0.6-1.2) H 09/07/20 04:12 Estimated GFR 5 ml/min 09/07/20 04:12 BUN/Creatinine Ratio 13 % 09/07/20 04:12 Glucose 227 mg/dL (65-100) H 09/07/20 04:12 POC Glucose 190 mg/dL (70-105) H 09/09/20 05:55 Calcium 7.9 mg/dL (8.4-10.2) L 09/07/20 04:12 Phosphorus 11.50 mg/dL (2.5-4.5) H 08/30/20 00:15 Magnesium 3.80 mg/dL (1.7-2.3) H 08/30/20 00:15 Ferritin 830.0 ng/mL (10.0-200.0) H 08/30/20 03:10 Total Bilirubin 0.40 mg/dL (0.1-1.2) 08/30/20 15:03 AST 68 units/L (5-40) H 08/30/20 15:03 ALT 41 units/L (7-56) 08/30/20 15:03 Alkaline Phosphatase 364 units/L (35-129) H 08/30/20 15:03 Lactate Dehydrogenase 400 units/L (91-180) H 08/30/20 03:10 Troponin T 0.085 ng/mL (0.00-0.029) H 08/30/20 00:15 C-Reactive Protein 0.20 mg/dL (0.00-1.30) 08/30/20 03:10 Total Protein 6.4 g/dL (6.3-8.2) 08/30/20 15:03 Albumin 3.7 g/dL (3.9-5) L 08/30/20 15:03 Albumin/Globulin Ratio 1.4 % 08/30/20 15:03 Triglycerides 61 mg/dL (2-149) 08/30/20 00:15 Cholesterol 150 mg/dL (50-199) 08/30/20 00:15 LDL Cholesterol Direct 71 mg/dL (50-130) 08/30/20 00:15 HDL Cholesterol 66 mg/dL (40-59) H 08/30/20 00:15 Cholesterol/HDL Ratio 2.27 % 08/30/20 00:15 Procalcitonin 4.16 ng/mL (<0.15) 08/30/20 03:10 Arterial Blood Glucose 214 mg/dL (65-95) H 09/09/20 03:43 Arterial Blood Ionized Calcium 3.3 mg/dL (4.6-5.3) L 09/09/20 03:43 Coronavirus (PCR) Negative (Negative) 08/30/20 Unknown Hepatitis A IgM Ab Non-reactive (NonReactive) 08/30/20 07:35 Hep Bs Antigen Non-reactive (Negative) 08/30/20 07:35 Hep B Core IgM Ab Non-reactive (NonReactive) 08/30/20 07:35 Hepatitis C Antibody Non-reactive (NonReactive) 08/30/20 07:35 Johns/IV: Voiding Method Incontinent Active Medications - Current Medications Current Medications: Generic Name Dose Route Start Last Admin Trade Name Freq PRN Reason Stop Dose Admin Acetaminophen 650 mg 09/01/20 00:27 09/04/20 04:34 Acetaminophen 325 Mg/10.15 Ml Oral Liqd Unit Dose FEEDTUBE 650 mg Q6H PRN Administration Non Cardiac Pain or Temp>100.5 Amlodipine Besylate 10 mg 09/03/20 11:00 09/08/20 09:08 Amlodipine 10 Mg Tab PO Not Given QDAY ANIYAH Lipase/Protease/Amylase 1 each 08/30/20 14:27 Lipase 10,500/Protease 25,000/Amylase 43,750 (Units) Dr Duran FEEDTUBE PRN PRN For Clogged Feeding Tube Dextrose 50 ml 08/30/20 19:48 Dextrose 50% In Water (25gm) 50 Ml Syringe IV Q30MIN PRN Hypoglycemia Protocol Famotidine 20 mg 09/02/20 10:00 09/08/20 09:07 Famotidine 20 Mg Tab PO 20 mg DAILY ANIYAH Administration Heparin Sodium (Porcine) 5,000 unit 08/30/20 06:00 09/09/20 06:17 Heparin 5,000 Unit/1 Ml Vial SUB-Q 5,000 unit Q8HR ANIYAH Administration Hydralazine HCl 10 mg 08/31/20 18:14 09/04/20 04:34 Hydralazine 20 Mg/1 Ml Inj IV 10 mg Q4HR PRN Administration Hypertension Hydrophilic Ointment 1 applic 08/30/20 14:05 Lip Therapy Vaseline TP Q2HR PRN Dry Lips Sodium Chloride 100 mls @ 999 mls/hr 08/30/20 09:00 Nacl 0.9% IV ARMIDA PRN Hypotension Insulin Glargine 30 units 09/03/20 10:00 09/08/20 09:06 Insulin Glargine 100 Units/Ml SUB-Q 30 units DAILY ANIYAH Administration Insulin Human Lispro 5 unit 09/04/20 08:00 09/08/20 19:20 Insulin Lispro 100 Unit/Ml SUB-Q 5 unit TID ANIYAH Administration Insulin Human Regular 0 units 09/01/20 10:00 09/09/20 06:17 Insulin Regular, Human 100 Units/1 Ml SUB-Q 3 units Q4HR ANIYAH Administration Protocol Levetiracetam 750 mg 09/04/20 22:00 09/08/20 09:07 Levetiracetam 500 Mg/5 Ml Oral Liqd PO 750 mg BID ANIYAH Administration Magnesium Hydroxide 30 ml 08/30/20 04:41 Magnesium Hydroxide (Mom) Oral Liqd Udc PO Q4H PRN Constipation Metoprolol Tartrate 50 mg 09/03/20 11:00 09/08/20 09:08 Metoprolol Tartrate 50 Mg Tab PO Not Given BID ANIYAH Midodrine 15 mg 09/08/20 14:00 09/08/20 19:20 Midodrine 5 Mg Tab PO 15 mg TID ANIYAH Administration Multi-Ingred Cream/Lotion/Oil/Oint 1 applic 08/30/20 14:05 08/31/20 01:17 Mineral Oil/Petrolatum, White Ophth Oint 3.5 Gm OU 1 applic Q4HR PRN Administration Dry Eye(s) Nitroglycerin 0.4 mg 09/04/20 06:00 09/09/20 06:28 Nitroglycerin 0.4 Mg Patch 24hr TD Not Given QDAY@0600 [facility] Ondansetron HCl 4 mg 08/30/20 04:41 Ondansetron 4 Mg/2 Ml Inj IV Q8H PRN Nausea And Vomiting Senna/Docusate Sodium 1 tab 08/30/20 22:00 09/08/20 21:34 Sennosides/Docusate Sodium 8.6/50 Mg Tab FEEDTUBE 1 tab BID ANIYAH Administration Simple Syrup 15 ml 08/30/20 14:27 Simple Syrup 15 Ml FEEDTUBE PRN PRN Hypoglycemia Simple Syrup 30 ml 08/30/20 14:27 Simple Syrup 15 Ml FEEDTUBE PRN PRN Hypoglycemia Sodium Bicarbonate 325 mg 08/30/20 14:27 09/05/20 08:26 Sodium Bicarbonate 325 Mg Tab FEEDTUBE 325 mg PRN PRN Administration For Clogged Feeding Tube Sodium Chloride 10 ml 08/30/20 10:00 09/08/20 21:34 Sodium Chloride 0.9% 10 Ml Flush Syringe IV 10 ml BID ANIYAH Administration Sodium Chloride 10 ml 08/30/20 04:41 Sodium Chloride 0.9% 10 Ml Flush Syringe IV PRN PRN LINE FLUSH Nutrition/Malnutrition Assess - Dietary Evaluation Nutrition/Malnutrition Findings: Nutrition Notes Start: 08/30/20 07:40 Freq: Status: Active Protocol: Document 09/06/20 13:24 [facility] (Rec: 09/06/20 13:25 [facility] [id number]) Nutrition Notes Initial or Follow up Brief Note Current Diet TF - Nepro at 35ml/hr Subjective/Other Information Pt was tolerating TF at goal rate on 09/03. She remains on vent support; possible transfer to hospice. Nutrition Intervention Follow-Up By: 09/10/20 Additional Comments F/U: stable TF, vent status, wt
[2020-09-09] MEDS: MIDODRINE 5 MG TAB PO SCH ×3 (08:51→19:40)
[2020-09-09] MEDS: INSULIN LISPRO 100 UNIT/ML SUB-Q SCH ×3 (08:51→21:23)
[2020-09-09] MEDS: MINERAL OIL/PETROLATUM, WHITE OPHTH OINT 3.5 GM OU PRN (09:00)
[2020-09-09] MEDS: FAMOTIDINE 20 MG TAB PO SCH (09:15)
[2020-09-09] MEDS: levETIRAcetam 500 MG/5 ML ORAL LIQD PO SCH ×2 (09:15→21:52)
[2020-09-09] MEDS: SENNOSIDES/DOCUSATE SODIUM 8.6/50 MG TAB FEEDTUBE SCH ×2 (09:15→21:54)
--- NOTE | 2020-09-09 10:23 | Progress Note ---
Assessment and Plan - Patient Problems (1) Anoxic encephalopathy Current Visit: Yes Status: Acute Plan to address problem: In the setting of cardiopulmonary arrest. No changes in her neurological status, which remains poor at this time. Pending hospice evaluation/transition. Pending decision from family at this time. (2) Cardiac arrest Current Visit: Yes Status: Acute Plan to address problem: s/p cardiac arrest suffered at home, with unfortunately severe anoxic encephalopathy/brain injury suffered without improvement in neurologic status. She is off all pressors and sedation at this time. Cardiology input reviewed and appreciated. Overall prognosis remains poor/grim at this point. (3) End-stage renal disease on hemodialysis Current Visit: Yes Status: Chronic Plan to address problem: Patient was placed on MWF HD schedule. At this point, given her overall poor prognosis, and notes from primary indicating likely transition to hospice, will hold HD at this time. Dialysis will not change her ultimately grim prognosis at this time. (4) Hyperkalemia Current Visit: Yes Status: Acute Plan to address problem: we have treated her medically with kayexulate with improvement noted. (5) Multifocal pneumonia Current Visit: Yes Status: Acute Plan to address problem: Please ensure that antibiotics are dosed appropriately for her decreased renal function. (6) Pulmonary edema Current Visit: Yes Status: Acute Plan to address problem: Will monitor closely. She remains intubated, without any acute changes in vent settings at this time. Subjective Date of service: 09/09/20 Principal diagnosis: Cardiac arrest; Ac. hypoxemic resp failure; PNA; ESRD; NSTEMI; Hyperkalemia Interval history: No acute changes. Pending decision from family in regards to hospice transition. Objective - Vital Signs Vital signs: Vital Signs - 12hr 09/08/20 09/08/20 09/08/20 22:30 23:00 23:30 Temperature Pulse Rate 60 58 L 58 L Pulse Rate [ From Monitor] Respiratory 12 14 15 Rate Blood Pressure 132/47 132/48 112/41 O2 Sat by Pulse 100 100 98 Oximetry 09/08/20 09/08/20 09/09/20 23:42 23:50 00:00 Temperature 98.6 F Pulse Rate 58 L 57 L Pulse Rate [ 61 From Monitor] Respiratory 14 12 Rate Blood Pressure 112/41 115/44 O2 Sat by Pulse 96 100 Oximetry 09/09/20 09/09/20 09/09/20 00:17 00:30 01:00 Temperature Pulse Rate 58 L 57 L 62 Pulse Rate [ From Monitor] Respiratory 12 13 Rate Blood Pressure 115/44 115/44 133/49 O2 Sat by Pulse 98 96 96 Oximetry 09/09/20 09/09/20 09/09/20 01:30 02:00 02:30 Temperature Pulse Rate 62 64 64 Pulse Rate [ From Monitor] Respiratory 14 16 14 Rate Blood Pressure 134/48 141/51 139/51 O2 Sat by Pulse 97 96 99 Oximetry 09/09/20 09/09/20 09/09/20 03:00 03:30 04:00 Temperature Pulse Rate 64 64 64 Pulse Rate [ 64 From Monitor] Respiratory 15 17 19 Rate Blood Pressure 138/52 137/51 138/51 O2 Sat by Pulse 97 98 100 Oximetry 09/09/20 09/09/20 09/09/20 04:30 04:34 04:52 Temperature 97.6 F Pulse Rate 64 63 Pulse Rate [ From Monitor] Respiratory 12 Rate Blood Pressure 140/52 140/52 O2 Sat by Pulse 99 99 Oximetry 09/09/20 09/09/20 09/09/20 05:00 05:30 06:00 Temperature Pulse Rate 62 63 62 Pulse Rate [ From Monitor] Respiratory 15 17 18 Rate Blood Pressure 135/49 134/50 135/50 O2 Sat by Pulse 99 100 100 Oximetry 09/09/20 09/09/20 09/09/20 06:30 07:00 07:30 Temperature 97.0 F L Pulse Rate 58 L 58 L 57 L Pulse Rate [ From Monitor] Respiratory 13 16 14 Rate Blood Pressure 115/42 110/45 120/45 O2 Sat by Pulse 100 100 100 Oximetry 09/09/20 09/09/20 09/09/20 08:00 08:28 08:30 Temperature Pulse Rate 62 62 59 L Pulse Rate [ 59 L From Monitor] Respiratory 14 18 Rate Blood Pressure 110/45 135/50 127/44 O2 Sat by Pulse 100 100 94 Oximetry 09/09/20 09:00 Temperature Pulse Rate 60 Pulse Rate [ From Monitor] Respiratory 15 Rate Blood Pressure 126/48 O2 Sat by Pulse 96 Oximetry - General Appearance General appearance: chronically ill, intubated EENT: ATNC Neck: no JVD Respiratory: Present: Decreased Breath Sounds Cardiology: regular Gastrointestinal: normal Integumentary: no rash Neurologic: other (remains unresponsive off all sedation. ) Musculoskeletal: deferred - Lab 09/07/20 04:12 09/07/20 15:35 Most recent lab results ABG pH 7.367 (7.320-7.450) 09/09/20 03:43 ABG pCO2 38.0 mm Hg 09/02/20 03:40 ABG pO2 83.1 mm Hg (80.0-90.0) 09/02/20 03:40 ABG HCO3 29.4 mmol/L (20.0-26.0) H 09/02/20 03:40 ABG O2 Saturation 86.2 (0-100) 09/09/20 03:43 Calcium 7.9 mg/dL (8.4-10.2) L 09/07/20 04:12 Phosphorus 11.50 mg/dL (2.5-4.5) H 08/30/20 00:15 Magnesium 3.80 mg/dL (1.7-2.3) H 08/30/20 00:15 - Allied health notes Allied health notes reviewed: nursing Medications & Allergies - Medications Allergies/Adverse Reactions: Allergies No Known Allergies Allergy (Verified 08/30/20 22:43) Home Medications: Home Medications Medication Instructions Recorded Confirmed Last Taken Type Acyclovir [Zovirax Tab] 400 mg PO BID 08/30/20 08/30/20 Unknown History Amlodipine Besylate 10 mg PO DAILY 08/30/20 08/30/20 Unknown History Furosemide [Lasix] 40 mg PO DAILY 08/30/20 08/30/20 Unknown History Gabapentin [Neurontin] 600 mg PO BID 08/30/20 08/30/20 Unknown History Imdur ER 30 mg PO DAILY 08/30/20 08/30/20 Unknown History Losartan Potassium 50 mg PO BID 08/30/20 08/30/20 Unknown History Losartan/Hydrochlorothiazide 1 each PO DAILY 08/30/20 08/30/20 Unknown History [Losartan-Hctz 100-25 mg Tab] Metoprolol Tartrate 25 mg PO BID 08/30/20 08/30/20 Unknown History Mirtazapine [Remeron] 30 mg PO HS 08/30/20 08/30/20 Unknown History Sevelamer Carbonate [Renvela] 800 mg PO TIDWM 08/30/20 08/30/20 Unknown History Vit B Complx C/Folic Acid/Zinc 0.8 mg PO DAILY 08/30/20 08/30/20 Unknown History [Dialyvite 800-Zinc 15 Tab] Zolpidem Tartrate [Edluar SUBL] 5 mg PO QHS PRN 08/30/20 08/30/20 Unknown History calcitrioL 0.5 mcg PO DAILY 08/30/20 08/30/20 Unknown History Active Medications: Generic Name Dose Route Start Last Admin Trade Name Freq PRN Reason Stop Dose Admin Acetaminophen 650 mg 09/01/20 00:27 09/04/20 04:34 Acetaminophen 325 Mg/10.15 Ml Oral Liqd Unit Dose FEEDTUBE 650 mg Q6H PRN Administration Non Cardiac Pain or Temp>100.5 Amlodipine Besylate 10 mg 09/03/20 11:00 09/08/20 09:08 Amlodipine 10 Mg Tab PO Not Given QDAY ANIYAH Lipase/Protease/Amylase 1 each 08/30/20 14:27 Lipase 10,500/Protease 25,000/Amylase 43,750 (Units) Dr Duran FEEDTUBE PRN PRN For Clogged Feeding Tube Dextrose 50 ml 08/30/20 19:48 Dextrose 50% In Water (25gm) 50 Ml Syringe IV Q30MIN PRN Hypoglycemia Protocol Famotidine 20 mg 09/02/20 10:00 09/09/20 09:15 Famotidine 20 Mg Tab PO 20 mg DAILY ANIYAH Administration Heparin Sodium (Porcine) 5,000 unit 08/30/20 06:00 09/09/20 06:17 Heparin 5,000 Unit/1 Ml Vial SUB-Q 5,000 unit Q8HR ANIYAH Administration Hydralazine HCl 10 mg 08/31/20 18:14 09/04/20 04:34 Hydralazine 20 Mg/1 Ml Inj IV 10 mg Q4HR PRN Administration Hypertension Hydrophilic Ointment 1 applic 08/30/20 14:05 Lip Therapy Vaseline TP Q2HR PRN Dry Lips Sodium Chloride 100 mls @ 999 mls/hr 08/30/20 09:00 Nacl 0.9% IV ARMIDA PRN Hypotension Insulin Glargine 30 units 09/03/20 10:00 09/08/20 09:06 Insulin Glargine 100 Units/Ml SUB-Q 30 units DAILY ANIYAH Administration Insulin Human Lispro 5 unit 09/04/20 08:00 09/09/20 08:51 Insulin Lispro 100 Unit/Ml SUB-Q 5 unit TID ANIYAH Administration Insulin Human Regular 0 units 09/01/20 10:00 09/09/20 06:17 Insulin Regular, Human 100 Units/1 Ml SUB-Q 3 units Q4HR ANIYAH Administration Protocol Levetiracetam 750 mg 09/04/20 22:00 09/09/20 09:15 Levetiracetam 500 Mg/5 Ml Oral Liqd PO 750 mg BID ANIYAH Administration Magnesium Hydroxide 30 ml 08/30/20 04:41 Magnesium Hydroxide (Mom) Oral Liqd Udc PO Q4H PRN Constipation Metoprolol Tartrate 50 mg 09/03/20 11:00 09/08/20 09:08 Metoprolol Tartrate 50 Mg Tab PO Not Given BID [facility] Midodrine 15 mg 09/08/20 14:00 09/09/20 08:51 Midodrine 5 Mg Tab PO 15 mg TID [facility] Administration Multi-Ingred Cream/Lotion/Oil/Oint 1 applic 08/30/20 14:05 09/09/20 09:00 Mineral Oil/Petrolatum, White Ophth Oint 3.5 Gm OU 1 applic Q4HR PRN Administration Dry Eye(s) Nitroglycerin 0.4 mg 09/04/20 06:00 09/09/20 06:28 Nitroglycerin 0.4 Mg Patch 24hr TD Not Given QDAY@0600 [facility] Ondansetron HCl 4 mg 08/30/20 04:41 Ondansetron 4 Mg/2 Ml Inj IV Q8H PRN Nausea And Vomiting Senna/Docusate Sodium 1 tab 08/30/20 22:00 09/09/20 09:15 Sennosides/Docusate Sodium 8.6/50 Mg Tab FEEDTUBE 1 tab BID ANIYAH Administration Simple Syrup 15 ml 08/30/20 14:27 Simple Syrup 15 Ml FEEDTUBE PRN PRN Hypoglycemia Simple Syrup 30 ml 08/30/20 14:27 Simple Syrup 15 Ml FEEDTUBE PRN PRN Hypoglycemia Sodium Bicarbonate 325 mg 08/30/20 14:27 09/05/20 08:26 Sodium Bicarbonate 325 Mg Tab FEEDTUBE 325 mg PRN PRN Administration For Clogged Feeding Tube Sodium Chloride 10 ml 08/30/20 10:00 09/09/20 09:15 Sodium Chloride 0.9% 10 Ml Flush Syringe IV 10 ml BID ANIYAH Administration Sodium Chloride 10 ml 08/30/20 04:41 Sodium Chloride 0.9% 10 Ml Flush Syringe IV PRN PRN LINE FLUSH
--- NOTE | 2020-09-09 10:27 | Progress Note ---
Assessment and Plan Out of hospital cardiopulmonary arrest Brain MRI is consistent with anoxic brain injury normal LVEF 55-60% by echocardiogram no evidence of DVT by LE duplex End-stage renal disease on hemodialysis Hx of multiple myeloma s/p chemotherapy Hypertension Diabetes Anemia Supportive cardiac management. Subjective Date of service: 09/09/20 Principal diagnosis: Cardiac arrest; Ac. hypoxemic resp failure; PNA; ESRD; NSTEMI; Hyperkalemia Interval history: Patient remains unresponsive on the vent without severe anoxic encephalopathy. Objective Vital Signs Temp Pulse Pulse Resp BP Pulse Ox 09/09/20 09:00 60 15 126/48 96 09/09/20 08:30 59 L 18 127/44 94 09/09/20 08:28 62 135/50 100 09/09/20 08:00 62 59 L 14 110/45 100 09/09/20 07:30 57 L 14 120/45 100 09/09/20 07:00 97.0 F L 58 L 16 110/45 100 09/09/20 06:30 58 L 13 115/42 100 09/09/20 06:00 62 18 135/50 100 09/09/20 05:30 63 17 134/50 100 09/09/20 05:00 62 15 135/49 99 09/09/20 04:52 63 140/52 99 09/09/20 04:34 97.6 F 09/09/20 04:30 64 12 140/52 99 09/09/20 04:00 64 64 19 138/51 100 09/09/20 03:30 64 17 137/51 98 09/09/20 03:00 64 15 138/52 97 09/09/20 02:30 64 14 139/51 99 09/09/20 02:00 64 16 141/51 96 09/09/20 01:30 62 14 134/48 97 09/09/20 01:00 62 13 133/49 96 09/09/20 00:30 57 L 12 115/44 96 09/09/20 00:17 58 L 115/44 98 09/09/20 00:00 57 L 61 12 115/44 100 09/08/20 23:50 98.6 F 09/08/20 23:42 58 L 14 112/41 96 09/08/20 23:30 58 L 15 112/41 98 09/08/20 23:00 58 L 14 132/48 100 09/08/20 22:30 60 12 132/47 100 09/08/20 22:00 60 12 132/48 100 09/08/20 21:30 62 12 132/49 100 09/08/20 21:00 63 12 130/49 100 09/08/20 20:41 97.5 F L 09/08/20 20:30 60 12 126/46 100 09/08/20 20:00 59 L 62 12 122/47 100 09/08/20 19:30 60 12 112/44 100 09/08/20 19:00 61 12 121/45 100 09/08/20 18:31 61 14 96/34 99 09/08/20 18:15 63 15 96/34 98 09/08/20 18:00 62 16 96/34 98 09/08/20 17:45 63 17 97/33 100 09/08/20 17:31 62 18 97/33 100 09/08/20 17:15 65 14 97/33 100 09/08/20 17:00 67 18 97/33 100 09/08/20 16:45 67 14 107/37 100 09/08/20 16:31 67 13 107/37 100 09/08/20 16:15 67 16 107/37 100 09/08/20 16:00 68 78 17 107/37 100 09/08/20 15:57 68 107/35 100 09/08/20 15:53 97.6 F 09/08/20 15:45 68 11 L 107/35 100 09/08/20 15:31 68 16 107/35 100 09/08/20 15:15 68 12 107/35 100 09/08/20 15:00 68 13 107/35 100 09/08/20 14:45 68 11 L 92/32 100 09/08/20 14:31 67 14 92/32 100 09/08/20 14:15 68 15 92/35 100 09/08/20 14:00 69 12 92/35 100 09/08/20 13:45 69 15 90/35 100 09/08/20 13:31 70 12 84/34 100 09/08/20 13:15 70 12 84/34 100 09/08/20 13:00 70 14 84/34 100 09/08/20 12:45 69 15 90/34 100 09/08/20 12:31 70 12 92/33 100 06/23/21 12:15 70 12 87/34 100 09/08/20 12:08 97.6 F 09/08/20 12:00 71 78 12 87/34 99 09/08/20 11:57 72 79/33 100 09/08/20 11:45 73 17 78/32 100 09/08/20 11:30 72 12 79/33 100 09/08/20 11:15 75 19 81/33 96 09/08/20 11:00 75 17 81/33 100 09/08/20 10:45 74 16 99/41 100 09/08/20 10:30 83 13 99/41 100 - Physical Examination General: Other (unresponsive on the vent without sedation) HEENT: Positive: Other (Pupils fixed) Cardiac: Positive: Reg Rate and Rhythm Neuro: Positive: Other (Unresponsive, on the vent) Abdomen: Positive: Soft Skin: Positive: Clear Extremities: Absent: edema - Allied health notes Allied health notes reviewed: nursing
[2020-09-09] MEDS: METOPROLOL TARTRATE 50 MG TAB PO SCH ×2 (11:01→21:53)
[2020-09-09] MEDS: amLODIPine 10 MG TAB PO SCH (11:02)
[2020-09-09] MEDS: INSULIN GLARGINE 100 UNITS/ML SUB-Q SCH (11:02)
--- NOTE | 2020-09-09 11:50 | Progress Note ---
Assessment and Plan Cardiac arrest with return of spontaneous circulation Acute hypoxemic respiratory failure Bilateral pneumonia, possibly aspiration Bilateral pulmonary edema End-stage renal disease, on dialysis NSTEMI Severe hyperkalemia History of multiple myeloma History of hypertension Anemia that is microcytic Elevated serum troponin (Discussed at length with her daughter yesterday and explained the concept of substituted judgment after she states that she felt like she might be causing harm [killing] her mother if she agrees to hospice care; i also explained the concept of allowing natural and she will speak further with patients ) - reduced Midodrine - will consult for trach & PEG - continue care as below; - continue Daily SAT and SBT assessment as tolerated - continue to wean supplemental oxygen for target O2 sat's > 90% acutely - VAP bundle addressed - continue lung protective strategies - continue bronchodilators with pulmonary hygiene per RT - wean per pulmonary driven protocols otherwise - continue HD/UF for toxin and volume clearance - avoid nephrotoxins, renally dose all medications - continue accuchecks with glycemic control per SSI (While critically ill target blood glucose of 140-180 mg/dL; avoid hypoglycemia) - sedation prn for target RASS 0 to -1 - continue to avoid benzodiazepine's, reduce the possibility of delirium - complete AB's per ID rec's - prn analgesia per CPOT score - Maintenance of sleep-wake cycle, avoid delirium - continue enteral nutritional support at goal rate as tolerated - G.I. & VTE prophylaxis - PT/OT/ROM exercises - continue mobility protocols for pressure ulcer prophylaxis - Monitor hemodynamics closely - continue other care per attending / other consultants - discharge planning ongoing concurrently COVID SPECIFIC INTERVENTIONS - COVID PCR negative .... Re-evaluate in am & prn CONDITION: CRITICAL PROGNOSIS: GUARDED CODE STATUS: FULL CODE The high probability of a clinically significant, sudden or life-threatening deterioration of the [respiratory, cardiovascular, hematologic, renal & neurologic] system(s) required my full and direct attention, intervention and personal management. The aggregate critical care time was [33] minutes without overlap. Time includes spent on; [x] Data Review and interpretation [x] Patient assessment and monitoring of vital signs [x] Documentation [x] Medication orders and management Subjective Date of service: 09/09/20 Principal diagnosis: Cardiac arrest; Ac. hypoxemic resp failure; PNA; ESRD; N STEMI; Hyperkalemia Interval history: Patient is seen today for: Cardiac arrest with ROSC; Acute hypoxemic respiratory failure; Aspiration Pneumonia; ESRD on dialysis; NSTEMI; Hyperkalemia Seen and examined at bedside; 24hour events reviewed; nursing and respiratory care staff consulted; no adverse overnight events reported to me; resting peacefully in bed; remains on MVS; failed bedside SBT; AMS is persistent; hypotension resolved; no emesis or overt aspiration Objective Vital Signs - 12hr 09/09/20 09/09/20 09/09/20 00:00 00:17 00:30 Temperature Pulse Rate 57 L 58 L 57 L Pulse Rate [ 61 From Monitor] Respiratory 12 12 Rate Blood Pressure 115/44 115/44 115/44 O2 Sat by Pulse 100 98 96 Oximetry 09/09/20 09/09/20 09/09/20 01:00 01:30 02:00 Temperature Pulse Rate 62 62 64 Pulse Rate [ From Monitor] Respiratory 13 14 16 Rate Blood Pressure 133/49 134/48 141/51 O2 Sat by Pulse 96 97 96 Oximetry 09/09/20 09/09/20 09/09/20 02:30 03:00 03:30 Temperature Pulse Rate 64 64 64 Pulse Rate [ From Monitor] Respiratory 14 15 17 Rate Blood Pressure 139/51 138/52 137/51 O2 Sat by Pulse 99 97 98 Oximetry 09/09/20 09/09/20 09/09/20 04:00 04:30 04:34 Temperature 97.6 F Pulse Rate 64 64 Pulse Rate [ 64 From Monitor] Respiratory 19 12 Rate Blood Pressure 138/51 140/52 O2 Sat by Pulse 100 99 Oximetry 09/09/20 09/09/20 09/09/20 04:52 05:00 05:30 Temperature Pulse Rate 63 62 63 Pulse Rate [ From Monitor] Respiratory 15 17 Rate Blood Pressure 140/52 135/49 134/50 O2 Sat by Pulse 99 99 100 Oximetry 09/09/20 09/09/20 09/09/20 06:00 06:30 07:00 Temperature 97.0 F L Pulse Rate 62 58 L 58 L Pulse Rate [ From Monitor] Respiratory 18 13 16 Rate Blood Pressure 135/50 115/42 110/45 O2 Sat by Pulse 100 100 100 Oximetry 09/09/20 09/09/20 09/09/20 07:30 08:00 08:28 Temperature Pulse Rate 57 L 62 62 Pulse Rate [ 59 L From Monitor] Respiratory 14 14 Rate Blood Pressure 120/45 110/45 135/50 O2 Sat by Pulse 100 100 100 Oximetry 09/09/20 09/09/20 09/09/20 08:30 09:00 11:01 Temperature Pulse Rate 59 L 60 57 L Pulse Rate [ From Monitor] Respiratory 18 15 Rate Blood Pressure 127/44 126/48 O2 Sat by Pulse 94 96 Oximetry 09/09/20 09/09/20 11:02 11:40 Temperature Pulse Rate 57 L 57 L Pulse Rate [ From Monitor] Respiratory Rate Blood Pressure 126/48 O2 Sat by Pulse 96 Oximetry Constitutional: appears uncomfortable, other (elderly female riding set rate at rest on MVS) Eyes: non-icteric ENT: oropharynx moist, other (ETT 23 cm COLLEEN) Neck: supple, no lymphadenopathy, no JVD Effort: normal Ascultation: Bilateral: rhonchi Percussion: Bilateral: not dull Cardiovascular: regular rate and rhythm, other (S1,S2) Gastrointestinal: normoactive bowel sounds, soft, non-tender, non-distended Integumentary: normal Extremities: no cyanosis, pulses normal, no ischemia or petechiae Neurologic: pupils equal and round (dilated), other (unresponsive, not obeying commands) Psychiatric: other (unable to assess re: AMS) CBC and BMP: 09/07/20 04:12 09/07/20 15:35 ABG, PT/INR, D-dimer: ABG ABG pH 7.367 (7.320-7.450) 09/09/20 03:43 POC ABG pCO2 42.0 mmHg (32.0-48.0) 09/09/20 03:43 ABG pCO2 38.0 mm Hg 09/02/20 03:40 POC ABG pO2 58.6 mmHg (83-108) L 09/09/20 03:43 ABG pO2 83.1 mm Hg (80.0-90.0) 09/02/20 03:40 POC ABG HCO3 23.6 09/09/20 03:43 ABG O2 Saturation 86.2 (0-100) 09/09/20 03:43 PT/INR, D-dimer PT 12.8 Sec. (12.2-14.9) 08/31/20 05:45 INR 0.90 (0.87-1.13) 08/31/20 05:45 D-Dimer > 30539 ng/mlDDU (0-234) H 08/30/20 03:10 Abnormal lab findings: Abnormal Labs 08/30/20 08/30/20 08/30/20 00:14 00:15 00:15 WBC RBC 2.83 L Hgb 9.8 L Hct MCV 112 H MCH 35 H RDW 19.9 H Plt Count 95 L Lymph % (Auto) [place] % (Auto) Lymph # (Auto) Seg Neutrophils % Nucleated RBC % 1.0 H Seg Neutrophils # D-Dimer ABG pH 7.199 L POC ABG pCO2 49.3 H POC ABG pO2 ABG HCO3 ABG Base Excess ABG Hemoglobin 11.9 L ABG Oxyhemoglobin 93.0 L ABG Sodium ABG Potassium 6.9 H ABG Chloride ABG Glucose 158 H Oxyhemoglobin Carboxyhemoglobin 2.8 H Sodium Potassium 7.0 H* Chloride Carbon Dioxide 18 L BUN 68 H Creatinine 8.3 H Glucose 174 H POC Glucose Calcium Phosphorus Magnesium Ferritin AST 68 H Alkaline Phosphatase 414 H Lactate Dehydrogenase Troponin T 0.085 H Total Protein 5.6 L Albumin 3.4 L HDL Cholesterol 66 H Arterial Blood Glucose 158 H Arterial Blood Ionized Calcium 08/30/20 08/30/20 08/30/20 00:15 00:15 03:10 WBC RBC Hgb Hct MCV MCH RDW Plt Count Lymph % (Auto) [place] % (Auto) Lymph # (Auto) Seg Neutrophils % Nucleated RBC % Seg Neutrophils # D-Dimer 6083.16 H > 87286 H ABG pH POC ABG pCO2 POC ABG pO2 ABG HCO3 ABG Base Excess ABG Hemoglobin ABG Oxyhemoglobin ABG Sodium ABG Potassium ABG Chloride ABG Glucose Oxyhemoglobin Carboxyhemoglobin Sodium Potassium Chloride Carbon Dioxide BUN Creatinine Glucose POC Glucose Calcium Phosphorus 11.50 H Magnesium 3.80 H Ferritin AST Alkaline Phosphatase Lactate Dehydrogenase Troponin T Total Protein Albumin HDL Cholesterol Arterial Blood Glucose Arterial Blood Ionized Calcium 08/30/20 08/30/20 08/30/20 03:10 03:10 04:49 WBC RBC Hgb Hct MCV MCH RDW Plt Count Lymph % (Auto) [place] % (Auto) Lymph # (Auto) Seg Neutrophils % Nucleated RBC % Seg Neutrophils # D-Dimer ABG pH POC ABG pCO2 POC ABG pO2 ABG HCO3 ABG Base Excess ABG Hemoglobin 10.8 L ABG Oxyhemoglobin ABG Sodium ABG Potassium 6.7 H ABG Chloride ABG Glucose 137 H Oxyhemoglobin Carboxyhemoglobin Sodium Potassium Chloride Carbon Dioxide BUN Creatinine Glucose 126 H POC Glucose Calcium Phosphorus Magnesium Ferritin 830.0 H AST Alkaline Phosphatase Lactate Dehydrogenase 400 H Troponin T Total Protein Albumin HDL Cholesterol Arterial Blood Glucose 137 H Arterial Blood Ionized Calcium 4.5 L 08/30/20 08/30/20 08/30/20 07:13 15:03 15:03 WBC 17.2 H RBC 3.23 L Hgb Hct MCV 108 H MCH 34 H RDW 19.4 H Plt Count 90 L Lymph % (Auto) [place] % (Auto) Lymph # (Auto) Seg Neutrophils % Nucleated RBC % Seg Neutrophils # D-Dimer ABG pH POC ABG pCO2 POC ABG pO2 ABG HCO3 ABG Base Excess ABG Hemoglobin ABG Oxyhemoglobin ABG Sodium ABG Potassium ABG Chloride ABG Glucose Oxyhemoglobin Carboxyhemoglobin Sodium Potassium 8.2 H* 6.5 H* D Chloride 96.7 L Carbon Dioxide 21 L BUN 52 H Creatinine 5.7 H Glucose 220 H POC Glucose Calcium Phosphorus Magnesium Ferritin AST 68 H Alkaline Phosphatase 364 H Lactate Dehydrogenase Troponin T Total Protein Albumin 3.7 L HDL Cholesterol Arterial Blood Glucose Arterial Blood Ionized Calcium 08/30/20 08/30/20 08/31/20 17:27 21:03 04:07 WBC RBC Hgb Hct MCV MCH RDW Plt Count Lymph % (Auto) [place] % (Auto) Lymph # (Auto) Seg Neutrophils % Nucleated RBC % Seg Neutrophils # D-Dimer ABG pH 7.498 H POC ABG pCO2 27.9 L POC ABG pO2 126.9 H ABG HCO3 ABG Base Excess ABG Hemoglobin 10.1 L ABG Oxyhemoglobin 98.3 H ABG Sodium 134.3 L ABG Potassium 6.7 H ABG Chloride ABG Glucose 261 H Oxyhemoglobin Carboxyhemoglobin 0.1 L Sodium Potassium Chloride Carbon Dioxide BUN Creatinine Glucose POC Glucose 223 H 230 H Calcium Phosphorus Magnesium Ferritin AST Alkaline Phosphatase Lactate Dehydrogenase Troponin T Total Protein Albumin HDL Cholesterol Arterial Blood Glucose 261 H Arterial Blood Ionized Calcium 3.6 L 08/31/20 08/31/20 08/31/20 05:01 05:45 05:45 WBC 13.1 H RBC 2.83 L Hgb 9.6 L Hct 29.8 L MCV 105 H MCH 34 H RDW 18.9 H Plt Count 88 L Lymph % (Auto) 6.9 L [place] % (Auto) Lymph # (Auto) 0.9 L Seg Neutrophils % 87.8 H Nucleated RBC % Seg Neutrophils # 11.5 H D-Dimer ABG pH POC ABG pCO2 POC ABG pO2 ABG HCO3 ABG Base Excess ABG Hemoglobin ABG Oxyhemoglobin ABG Sodium ABG Potassium ABG Chloride ABG Glucose Oxyhemoglobin Carboxyhemoglobin Sodium Potassium 7.1 H* Chloride 96.7 L Carbon Dioxide BUN 74 H Creatinine 7.0 H Glucose 254 H POC Glucose 256 H Calcium 7.6 L Phosphorus Magnesium Ferritin AST Alkaline Phosphatase Lactate Dehydrogenase Troponin T Total Protein Albumin HDL Cholesterol Arterial Blood Glucose Arterial Blood Ionized Calcium 08/31/20 08/31/20 09/01/20 11:38 23:31 03:13 WBC RBC Hgb Hct MCV MCH RDW Plt Count Lymph % (Auto) [place] % (Auto) Lymph # (Auto) Seg Neutrophils % Nucleated RBC % Seg Neutrophils # D-Dimer ABG pH 7.519 H POC ABG pCO2 POC ABG pO2 ABG HCO3 ABG Base Excess ABG Hemoglobin 9.3 L ABG Oxyhemoglobin ABG Sodium 134.7 L ABG Potassium ABG Chloride 94.0 L ABG Glucose 441 H Oxyhemoglobin Carboxyhemoglobin Sodium Potassium Chloride Carbon Dioxide BUN Creatinine Glucose POC Glucose 294 H 426 H Calcium Phosphorus Magnesium Ferritin AST Alkaline Phosphatase Lactate Dehydrogenase Troponin T Total Protein Albumin HDL Cholesterol Arterial Blood Glucose 441 H Arterial Blood Ionized Calcium 3.8 L 09/01/20 09/01/20 09/01/20 05:20 10:32 11:45 WBC RBC Hgb Hct MCV MCH RDW Plt Count Lymph % (Auto) [place] % (Auto) Lymph # (Auto) Seg Neutrophils % Nucleated RBC % Seg Neutrophils # D-Dimer ABG pH POC ABG pCO2 POC ABG pO2 ABG HCO3 ABG Base Excess ABG Hemoglobin ABG Oxyhemoglobin ABG Sodium ABG Potassium ABG Chloride ABG Glucose Oxyhemoglobin Carboxyhemoglobin Sodium Potassium Chloride Carbon Dioxide BUN Creatinine Glucose POC Glucose 422 H 227 H 203 H Calcium Phosphorus Magnesium Ferritin AST Alkaline Phosphatase Lactate Dehydrogenase Troponin T Total Protein Albumin HDL Cholesterol Arterial Blood Glucose Arterial Blood Ionized Calcium 09/01/20 09/01/20 09/01/20 13:34 17:11 17:29 WBC RBC Hgb Hct MCV MCH RDW Plt Count Lymph % (Auto) [place] % (Auto) Lymph # (Auto) Seg Neutrophils % Nucleated RBC % Seg Neutrophils # D-Dimer ABG pH POC ABG pCO2 POC ABG pO2 ABG HCO3 ABG Base Excess ABG Hemoglobin ABG Oxyhemoglobin ABG Sodium ABG Potassium ABG Chloride ABG Glucose Oxyhemoglobin Carboxyhemoglobin Sodium Potassium Chloride 94.5 L Carbon Dioxide BUN 29 H Creatinine 3.4 H D Glucose 241 H POC Glucose 212 H 198 H Calcium 8.2 L Phosphorus Magnesium Ferritin AST Alkaline Phosphatase Lactate Dehydrogenase Troponin T Total Protein Albumin HDL Cholesterol Arterial Blood Glucose Arterial Blood Ionized Calcium 09/01/20 09/02/20 09/02/20 21:33 03:08 03:40 WBC RBC Hgb Hct MCV MCH RDW Plt Count Lymph % (Auto) [place] % (Auto) Lymph # (Auto) Seg Neutrophils % Nucleated RBC % Seg Neutrophils # D-Dimer ABG pH 7.506 H POC ABG pCO2 POC ABG pO2 ABG HCO3 29.4 H ABG Base Excess 5.9 H ABG Hemoglobin 8.3 L ABG Oxyhemoglobin ABG Sodium ABG Potassium ABG Chloride ABG Glucose Oxyhemoglobin 94.8 L Carboxyhemoglobin Sodium Potassium Chloride Carbon Dioxide BUN Creatinine Glucose POC Glucose 188 H 179 H Calcium Phosphorus Magnesium Ferritin AST Alkaline Phosphatase Lactate Dehydrogenase Troponin T Total Protein Albumin HDL Cholesterol Arterial Blood Glucose Arterial Blood Ionized Calcium 09/02/20 09/02/20 09/02/20 05:55 07:12 09:28 WBC RBC Hgb Hct MCV MCH RDW Plt Count Lymph % (Auto) [place] % (Auto) Lymph # (Auto) Seg Neutrophils % Nucleated RBC % Seg Neutrophils # D-Dimer ABG pH POC ABG pCO2 POC ABG pO2 ABG HCO3 ABG Base Excess ABG Hemoglobin ABG Oxyhemoglobin ABG Sodium ABG Potassium ABG Chloride ABG Glucose Oxyhemoglobin Carboxyhemoglobin Sodium 136 L Potassium Chloride 91.6 L Carbon Dioxide BUN 52 H Creatinine 5.5 H D Glucose 176 H POC Glucose 185 H 196 H Calcium 7.7 L Phosphorus Magnesium Ferritin AST Alkaline Phosphatase Lactate Dehydrogenase Troponin T Total Protein Albumin HDL Cholesterol Arterial Blood Glucose Arterial Blood Ionized Calcium 09/02/20 09/02/20 09/02/20 11:06 13:03 17:22 WBC RBC Hgb Hct MCV MCH RDW Plt Count Lymph % (Auto) [place] % (Auto) Lymph # (Auto) Seg Neutrophils % Nucleated RBC % Seg Neutrophils # D-Dimer ABG pH POC ABG pCO2 POC ABG pO2 ABG HCO3 ABG Base Excess ABG Hemoglobin ABG Oxyhemoglobin ABG Sodium ABG Potassium ABG Chloride ABG Glucose Oxyhemoglobin Carboxyhemoglobin Sodium Potassium Chloride Carbon Dioxide BUN Creatinine Glucose POC Glucose 224 H 252 H 196 H Calcium Phosphorus Magnesium Ferritin AST Alkaline Phosphatase Lactate Dehydrogenase Troponin T Total Protein Albumin HDL Cholesterol Arterial Blood Glucose Arterial Blood Ionized Calcium 09/02/20 09/03/20 09/03/20 21:13 02:02 04:12 WBC RBC Hgb Hct MCV MCH RDW Plt Count Lymph % (Auto) [place] % (Auto) Lymph # (Auto) Seg Neutrophils % Nucleated RBC % Seg Neutrophils # D-Dimer ABG pH POC ABG pCO2 POC ABG pO2 ABG HCO3 ABG Base Excess ABG Hemoglobin ABG Oxyhemoglobin ABG Sodium ABG Potassium ABG Chloride ABG Glucose Oxyhemoglobin Carboxyhemoglobin Sodium 136 L Potassium Chloride 90.3 L Carbon Dioxide BUN 79 H Creatinine 8.1 H Glucose 223 H POC Glucose 204 H 205 H Calcium 7.1 L Phosphorus Magnesium Ferritin AST Alkaline Phosphatase Lactate Dehydrogenase Troponin T Total Protein Albumin HDL Cholesterol Arterial Blood Glucose Arterial Blood Ionized Calcium 09/03/20 09/03/20 09/03/20 04:12 05:35 09:28 WBC RBC 2.35 L Hgb 8.3 L Hct 25.1 L MCV 107 H MCH 35 H RDW 18.5 H Plt Count 87 L Lymph % (Auto) [place] % (Auto) Lymph # (Auto) Seg Neutrophils % Nucleated RBC % Seg Neutrophils # D-Dimer ABG pH POC ABG pCO2 POC ABG pO2 ABG HCO3 ABG Base Excess ABG Hemoglobin ABG Oxyhemoglobin ABG Sodium ABG Potassium ABG Chloride ABG Glucose Oxyhemoglobin Carboxyhemoglobin Sodium Potassium Chloride Carbon Dioxide BUN Creatinine Glucose POC Glucose 219 H 202 H Calcium Phosphorus Magnesium Ferritin AST Alkaline Phosphatase Lactate Dehydrogenase Troponin T Total Protein Albumin HDL Cholesterol Arterial Blood Glucose Arterial Blood Ionized Calcium 09/03/20 09/03/20 09/03/20 11:36 13:41 16:56 WBC RBC Hgb Hct MCV MCH RDW Plt Count Lymph % (Auto) [place] % (Auto) Lymph # (Auto) Seg Neutrophils % Nucleated RBC % Seg Neutrophils # D-Dimer ABG pH POC ABG pCO2 POC ABG pO2 ABG HCO3 ABG Base Excess ABG Hemoglobin ABG Oxyhemoglobin ABG Sodium ABG Potassium ABG Chloride ABG Glucose Oxyhemoglobin Carboxyhemoglobin Sodium Potassium Chloride Carbon Dioxide BUN Creatinine Glucose POC Glucose 216 H 224 H 298 H Calcium Phosphorus Magnesium Ferritin AST Alkaline Phosphatase Lactate Dehydrogenase Troponin T Total Protein Albumin HDL Cholesterol Arterial Blood Glucose Arterial Blood Ionized Calcium 09/03/20 09/04/20 09/04/20 20:49 00:23 05:28 WBC RBC Hgb Hct MCV MCH RDW Plt Count Lymph % (Auto) [place] % (Auto) Lymph # (Auto) Seg Neutrophils % Nucleated RBC % Seg Neutrophils # D-Dimer ABG pH POC ABG pCO2 POC ABG pO2 ABG HCO3 ABG Base Excess ABG Hemoglobin ABG Oxyhemoglobin ABG Sodium ABG Potassium ABG Chloride ABG Glucose Oxyhemoglobin Carboxyhemoglobin Sodium Potassium Chloride Carbon Dioxide BUN Creatinine Glucose POC Glucose 228 H 228 H 283 H Calcium Phosphorus Magnesium Ferritin AST Alkaline Phosphatase Lactate Dehydrogenase Troponin T Total Protein Albumin HDL Cholesterol Arterial Blood Glucose Arterial Blood Ionized Calcium 09/04/20 09/04/20 09/04/20 10:03 17:39 21:45 WBC RBC Hgb Hct MCV MCH RDW Plt Count Lymph % (Auto) [place] % (Auto) Lymph # (Auto) Seg Neutrophils % Nucleated RBC % Seg Neutrophils # D-Dimer ABG pH POC ABG pCO2 POC ABG pO2 ABG HCO3 ABG Base Excess ABG Hemoglobin ABG Oxyhemoglobin ABG Sodium ABG Potassium ABG Chloride ABG Glucose Oxyhemoglobin Carboxyhemoglobin Sodium Potassium Chloride Carbon Dioxide BUN Creatinine Glucose POC Glucose 159 H 128 H 213 H Calcium Phosphorus Magnesium Ferritin AST Alkaline Phosphatase Lactate Dehydrogenase Troponin T Total Protein Albumin HDL Cholesterol Arterial Blood Glucose Arterial Blood Ionized Calcium 09/05/20 09/05/20 09/05/20 02:04 05:33 09:25 WBC RBC Hgb Hct MCV MCH RDW Plt Count Lymph % (Auto) [place] % (Auto) Lymph # (Auto) Seg Neutrophils % Nucleated RBC % Seg Neutrophils # D-Dimer ABG pH POC ABG pCO2 POC ABG pO2 ABG HCO3 ABG Base Excess ABG Hemoglobin ABG Oxyhemoglobin ABG Sodium ABG Potassium ABG Chloride ABG Glucose Oxyhemoglobin Carboxyhemoglobin Sodium Potassium Chloride Carbon Dioxide BUN Creatinine Glucose POC Glucose 178 H 177 H 199 H Calcium Phosphorus Magnesium Ferritin AST Alkaline Phosphatase Lactate Dehydrogenase Troponin T Total Protein Albumin HDL Cholesterol Arterial Blood Glucose Arterial Blood Ionized Calcium 09/05/20 09/05/20 09/05/20 13:26 16:47 21:40 WBC RBC Hgb Hct MCV MCH RDW Plt Count Lymph % (Auto) [place] % (Auto) Lymph # (Auto) Seg Neutrophils % Nucleated RBC % Seg Neutrophils # D-Dimer ABG pH POC ABG pCO2 POC ABG pO2 ABG HCO3 ABG Base Excess ABG Hemoglobin ABG Oxyhemoglobin ABG Sodium ABG Potassium ABG Chloride ABG Glucose Oxyhemoglobin Carboxyhemoglobin Sodium Potassium Chloride Carbon Dioxide BUN Creatinine Glucose POC Glucose 136 H 141 H 131 H Calcium Phosphorus Magnesium Ferritin AST Alkaline Phosphatase Lactate Dehydrogenase Troponin T Total Protein Albumin HDL Cholesterol Arterial Blood Glucose Arterial Blood Ionized Calcium 09/06/20 09/06/20 09/06/20 03:16 05:20 07:39 WBC RBC Hgb Hct MCV MCH RDW Plt Count Lymph % (Auto) [place] % (Auto) Lymph # (Auto) Seg Neutrophils % Nucleated RBC % Seg Neutrophils # D-Dimer ABG pH POC ABG pCO2 POC ABG pO2 66.8 L ABG HCO3 ABG Base Excess ABG Hemoglobin 9.3 L ABG Oxyhemoglobin 89.9 L ABG Sodium 130.5 L ABG Potassium 5.1 H ABG Chloride 91.0 L ABG Glucose 224 H Oxyhemoglobin Carboxyhemoglobin Sodium Potassium Chloride Carbon Dioxide BUN Creatinine Glucose POC Glucose 112 H 163 H Calcium Phosphorus Magnesium Ferritin AST Alkaline Phosphatase Lactate Dehydrogenase Troponin T Total Protein Albumin HDL Cholesterol Arterial Blood Glucose 224 H Arterial Blood Ionized Calcium 3.8 L 09/06/20 09/06/20 09/06/20 09:30 15:27 17:57 WBC RBC Hgb Hct MCV MCH RDW Plt Count Lymph % (Auto) [place] % (Auto) Lymph # (Auto) Seg Neutrophils % Nucleated RBC % Seg Neutrophils # D-Dimer ABG pH POC ABG pCO2 POC ABG pO2 ABG HCO3 ABG Base Excess ABG Hemoglobin ABG Oxyhemoglobin ABG Sodium ABG Potassium ABG Chloride ABG Glucose Oxyhemoglobin Carboxyhemoglobin Sodium Potassium Chloride Carbon Dioxide BUN Creatinine Glucose POC Glucose 236 H 166 H 130 H Calcium Phosphorus Magnesium Ferritin AST Alkaline Phosphatase Lactate Dehydrogenase Troponin T Total Protein Albumin HDL Cholesterol Arterial Blood Glucose Arterial Blood Ionized Calcium 09/06/20 09/07/20 09/07/20 22:21 03:28 04:00 WBC RBC Hgb Hct MCV MCH RDW Plt Count Lymph % (Auto) [place] % (Auto) Lymph # (Auto) Seg Neutrophils % Nucleated RBC % Seg Neutrophils # D-Dimer ABG pH POC ABG pCO2 POC ABG pO2 62.2 L ABG HCO3 ABG Base Excess ABG Hemoglobin 8.0 L ABG Oxyhemoglobin 87.8 L ABG Sodium 127.3 L ABG Potassium 5.7 H ABG Chloride 89.0 L ABG Glucose 232 H Oxyhemoglobin Carboxyhemoglobin Sodium Potassium Chloride Carbon Dioxide BUN Creatinine Glucose POC Glucose 154 H 183 H Calcium Phosphorus Magnesium Ferritin AST Alkaline Phosphatase Lactate Dehydrogenase Troponin T Total Protein Albumin HDL Cholesterol Arterial Blood Glucose 232 H Arterial Blood Ionized Calcium 3.7 L 09/07/20 09/07/20 09/07/20 04:12 04:12 05:45 WBC RBC 2.32 L Hgb 7.9 L Hct 24.0 L MCV 104 H MCH 34 H RDW 17.7 H Plt Count 116 L Lymph % (Auto) 8.5 L [place] % (Auto) 9.0 H Lymph # (Auto) 0.7 L Seg Neutrophils % 81.3 H Nucleated RBC % Seg Neutrophils # D-Dimer ABG pH POC ABG pCO2 POC ABG pO2 ABG HCO3 ABG Base Excess ABG Hemoglobin ABG Oxyhemoglobin ABG Sodium ABG Potassium ABG Chloride ABG Glucose Oxyhemoglobin Carboxyhemoglobin Sodium 133 L Potassium 6.2 H* D Chloride 85.8 L Carbon Dioxide BUN 132 H Creatinine 9.8 H Glucose 227 H POC Glucose 223 H Calcium 7.9 L Phosphorus Magnesium Ferritin AST Alkaline Phosphatase Lactate Dehydrogenase Troponin T Total Protein Albumin HDL Cholesterol Arterial Blood Glucose Arterial Blood Ionized Calcium 09/07/20 09/07/20 09/07/20 07:49 11:48 18:13 WBC RBC Hgb Hct MCV MCH RDW Plt Count Lymph % (Auto) [place] % (Auto) Lymph # (Auto) Seg Neutrophils % Nucleated RBC % Seg Neutrophils # D-Dimer ABG pH POC ABG pCO2 POC ABG pO2 ABG HCO3 ABG Base Excess ABG Hemoglobin ABG Oxyhemoglobin ABG Sodium ABG Potassium ABG Chloride ABG Glucose Oxyhemoglobin Carboxyhemoglobin Sodium Potassium Chloride Carbon Dioxide BUN Creatinine Glucose POC Glucose 281 H 169 H 162 H Calcium Phosphorus Magnesium Ferritin AST Alkaline Phosphatase Lactate Dehydrogenase Troponin T Total Protein Albumin HDL Cholesterol Arterial Blood Glucose Arterial Blood Ionized Calcium 09/07/20 09/08/2009/08/21 20:53 01:07 05:49 WBC RBC Hgb Hct MCV MCH RDW Plt Count Lymph % (Auto) [place] % (Auto) Lymph # (Auto) Seg Neutrophils % Nucleated RBC % Seg Neutrophils # D-Dimer ABG pH POC ABG pCO2 POC ABG pO2 ABG HCO3 ABG Base Excess ABG Hemoglobin ABG Oxyhemoglobin ABG Sodium ABG Potassium ABG Chloride ABG Glucose Oxyhemoglobin Carboxyhemoglobin Sodium Potassium Chloride Carbon Dioxide BUN Creatinine Glucose POC Glucose 205 H 180 H 186 H Calcium Phosphorus Magnesium Ferritin AST Alkaline Phosphatase Lactate Dehydrogenase Troponin T Total Protein Albumin HDL Cholesterol Arterial Blood Glucose Arterial Blood Ionized Calcium 09/08/20 09/08/20 09/08/20 11:44 13:56 17:31 WBC RBC Hgb Hct MCV MCH RDW Plt Count Lymph % (Auto) [place] % (Auto) Lymph # (Auto) Seg Neutrophils % Nucleated RBC % Seg Neutrophils # D-Dimer ABG pH POC ABG pCO2 POC ABG pO2 150.6 H ABG HCO3 ABG Base Excess ABG Hemoglobin 6.6 L ABG Oxyhemoglobin ABG Sodium 133.2 L ABG Potassium ABG Chloride 90.0 L ABG Glucose 173 H Oxyhemoglobin Carboxyhemoglobin Sodium Potassium Chloride Carbon Dioxide BUN Creatinine Glucose POC Glucose 164 H 160 H Calcium Phosphorus Magnesium Ferritin AST Alkaline Phosphatase Lactate Dehydrogenase Troponin T Total Protein Albumin HDL Cholesterol Arterial Blood Glucose 173 H Arterial Blood Ionized Calcium 3.5 L 09/08/20 09/09/20 09/09/20 19:19 02:39 03:43 WBC RBC Hgb Hct MCV MCH RDW Plt Count Lymph % (Auto) [place] % (Auto) Lymph # (Auto) Seg Neutrophils % Nucleated RBC % Seg Neutrophils # D-Dimer ABG pH POC ABG pCO2 POC ABG pO2 58.6 L ABG HCO3 ABG Base Excess ABG Hemoglobin 6.8 L ABG Oxyhemoglobin 84.7 L ABG Sodium 131.6 L ABG Potassium ABG Chloride 88.0 L ABG Glucose 214 H Oxyhemoglobin Carboxyhemoglobin Sodium Potassium Chloride Carbon Dioxide BUN Creatinine Glucose POC Glucose 160 H 201 H Calcium Phosphorus Magnesium Ferritin AST Alkaline Phosphatase Lactate Dehydrogenase Troponin T Total Protein Albumin HDL Cholesterol Arterial Blood Glucose 214 H Arterial Blood Ionized Calcium 3.3 L 09/09/20 09/09/20 05:55 09:52 WBC RBC Hgb Hct MCV MCH RDW Plt Count Lymph % (Auto) [place] % (Auto) Lymph # (Auto) Seg Neutrophils % Nucleated RBC % Seg Neutrophils # D-Dimer ABG pH POC ABG pCO2 POC ABG pO2 ABG HCO3 ABG Base Excess ABG Hemoglobin ABG Oxyhemoglobin ABG Sodium ABG Potassium ABG Chloride ABG Glucose Oxyhemoglobin Carboxyhemoglobin Sodium Potassium Chloride Carbon Dioxide BUN Creatinine Glucose POC Glucose 190 H 159 H Calcium Phosphorus Magnesium Ferritin AST Alkaline Phosphatase Lactate Dehydrogenase Troponin T Total Protein Albumin HDL Cholesterol Arterial Blood Glucose Arterial Blood Ionized Calcium Chest x-ray: other (none today) Allied health notes reviewed: nursing
--- NOTE | 2020-09-09 21:05 | Consultation ---
History of Present Illness Consult date: 09/09/20 Chief complaint: Needs tracheostomy and PEG - History of present illness History of present illness: 65 yo female with anoxic encephalopathy. Needs trach and PEG. 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 denies: smoking, alcohol abuse, prescription drug abuse, IV drug use Family history: no significant family history Medications and Allergies Allergies Allergy/AdvReac Type Severity Reaction Status Date / Time No Known Allergies Allergy Verified 08/30/20 22:43 Home Medications Medication Instructions Recorded Confirmed Last Taken Type Acyclovir [Zovirax Tab] 400 mg PO BID 08/30/20 08/30/20 Unknown History Amlodipine Besylate 10 mg PO DAILY 08/30/20 08/30/20 Unknown History Furosemide [Lasix] 40 mg PO DAILY 08/30/20 08/30/20 Unknown History Gabapentin [Neurontin] 600 mg PO BID 08/30/20 08/30/20 Unknown History Imdur ER 30 mg PO DAILY 08/30/20 08/30/20 Unknown History Losartan Potassium 50 mg PO BID 08/30/20 08/30/20 Unknown History Losartan/Hydrochlorothiazide 1 each PO DAILY 08/30/20 08/30/20 Unknown History [Losartan-Hctz 100-25 mg Tab] Metoprolol Tartrate 25 mg PO BID 08/30/20 08/30/20 Unknown History Mirtazapine [Remeron] 30 mg PO HS 08/30/20 08/30/20 Unknown History Sevelamer Carbonate [Renvela] 800 mg PO TIDWM 08/30/20 08/30/20 Unknown History Vit B Complx C/Folic Acid/Zinc 0.8 mg PO DAILY 08/30/20 08/30/20 Unknown History [Dialyvite 800-Zinc 15 Tab] Zolpidem Tartrate [Edluar SUBL] 5 mg PO QHS PRN 08/30/20 08/30/20 Unknown History calcitrioL 0.5 mcg PO DAILY 08/30/20 08/30/20 Unknown History Active Meds: Active Medications Acetaminophen (Acetaminophen 325 Mg/10.15 Ml Oral Liqd Unit Dose) 650 mg FEEDTUBE Q6H PRN PRN Reason: Non Cardiac Pain or Temp>100.5 Last Admin: 09/04/20 04:34 Dose: 650 mg Documented by: Amlodipine Besylate (Amlodipine 10 Mg Tab) 10 mg PO QDAY [facility] Last Admin: 09/09/20 11:02 Dose: Not Given Documented by: Lipase/Protease/Amylase (Lipase 10,500/Protease 25,000/Amylase 43,750 (Units) Dr Duran) 1 each FEEDTUBE PRN PRN PRN Reason: For Clogged Feeding Tube Dextrose (Dextrose 50% In Water (25gm) 50 Ml Syringe) 50 ml IV Q30MIN PRN; Protocol PRN Reason: Hypoglycemia Famotidine (Famotidine 20 Mg Tab) 20 mg PO DAILY [facility] Last Admin: 09/09/20 09:15 Dose: 20 mg Documented by: Heparin Sodium (Porcine) (Heparin 5,000 Unit/1 Ml Vial) 5,000 unit SUB-Q Q8HR [facility] Last Admin: 09/09/20 14:27 Dose: 5,000 unit Documented by: Hydralazine HCl (Hydralazine 20 Mg/1 Ml Inj) 10 mg IV Q4HR PRN PRN Reason: Hypertension Last Admin: 09/04/20 04:34 Dose: 10 mg Documented by: Hydrophilic Ointment (Lip Therapy Vaseline) 1 applic TP Q2HR PRN PRN Reason: Dry Lips Sodium Chloride (Nacl 0.9%) 100 mls @ 999 mls/hr IV ARMIDA PRN PRN Reason: Hypotension Insulin Glargine (Insulin Glargine 100 Units/Ml) 30 units SUB-Q DAILY [facility] Last Admin: 09/09/20 11:02 Dose: 30 units Documented by: Insulin Human Lispro (Insulin Lispro 100 Unit/Ml) 5 unit SUB-Q TID [facility] Last Admin: 09/09/20 14:27 Dose: 5 unit Documented by: Insulin Human Regular (Insulin Regular, Human 100 Units/1 Ml) 0 units SUB-Q Q4HR [facility]; Protocol Last Admin: 09/09/20 18:29 Dose: Not Given Documented by: Levetiracetam (Levetiracetam 500 Mg/5 Ml Oral Liqd) 750 mg PO BID [facility] Last Admin: 09/09/20 09:15 Dose: 750 mg Documented by: Magnesium Hydroxide (Magnesium Hydroxide (Mom) Oral Liqd Udc) 30 ml PO Q4H PRN PRN Reason: Constipation Metoprolol Tartrate (Metoprolol Tartrate 50 Mg Tab) 50 mg PO BID [facility] Last Admin: 09/09/20 11:01 Dose: Not Given Documented by: Midodrine (Midodrine 5 Mg Tab) 10 mg PO TID [facility] Last Admin: 09/09/20 19:40 Dose: Not Given Documented by: Multi-Ingred Cream/Lotion/Oil/Oint (Mineral Oil/Petrolatum, White Ophth Oint 3.5 Gm) 1 applic OU Q4HR PRN PRN Reason: Dry Eye(s) Last Admin: 09/09/20 09:00 Dose: 1 applic Documented by: Nitroglycerin (Nitroglycerin 0.4 Mg Patch 24hr) 0.4 mg TD QDAY@0600 [facility] Last Admin: 09/09/20 06:28 Dose: Not Given Documented by: Ondansetron HCl (Ondansetron 4 Mg/2 Ml Inj) 4 mg IV Q8H PRN PRN Reason: Nausea And Vomiting Senna/Docusate Sodium (Sennosides/Docusate Sodium 8.6/50 Mg Tab) 1 tab FEEDTUBE BID [facility] Last Admin: 09/09/20 09:15 Dose: 1 tab Documented by: Simple Syrup (Simple Syrup 15 Ml) 15 ml FEEDTUBE PRN PRN PRN Reason: Hypoglycemia Simple Syrup (Simple Syrup 15 Ml) 30 ml FEEDTUBE PRN PRN PRN Reason: Hypoglycemia Sodium Bicarbonate (Sodium Bicarbonate 325 Mg Tab) 325 mg FEEDTUBE PRN PRN PRN Reason: For Clogged Feeding Tube Last Admin: 09/05/20 08:26 Dose: 325 mg Documented by: Sodium Chloride (Sodium Chloride 0.9% 10 Ml Flush Syringe) 10 ml IV BID [facility] Last Admin: 09/09/20 09:15 Dose: 10 ml Documented by: Sodium Chloride (Sodium Chloride 0.9% 10 Ml Flush Syringe) 10 ml IV PRN PRN PRN Reason: LINE FLUSH Review of Systems ROS unobtainable: due to endotracheal tube Exam Vital Signs Pulse Resp BP Pulse Ox 84 24 108/47 98 08/29/20 23:54 08/29/20 23:54 08/29/20 23:54 08/29/20 23:54 - General physical appearance Positive: well developed, well nourished, no distress - Eyes Positive: PERRL, normal occular movement - ENT Positive: normal pinna, normal nares, normal mucosa, no hearing loss, no congestion - Neck Positive: no masses, no bruits, trachea midline, no venous distension - Respiratory Positive: normal expansion, normal respiratory effort, clear to auscultation - Cardiovascular Rhythm: regular Heart Sounds: Present: S1 & S2. Absent: rub, click - Extremities Extremities: no ischemia, pulses symmetrical, No edema - Breasts Breasts: normal, no mass, no skin changes - Abdomen Abdomen: Present: soft, bowel sounds normal. Absent: tender, distended Hernia: none - Genitourinary Male Genitourinary: normal Female Genitourinary: normal - Integumentary no rash, no growths, no abnormal pigmentation Results - Labs 09/07/20 04:12 09/07/20 15:35 Abnormal lab results 09/09/20 09/09/20 09/09/20 Range/Units 02:39 03:43 05:55 POC ABG pO2 58.6 L (83-108) mmHg ABG Hemoglobin 6.8 L (12.0-17.5) ABG Oxyhemoglobin 84.7 L (94-98) ABG Sodium 131.6 L (136.0-145.0) mmol/L ABG Chloride 88.0 L (98-107) mmol/L ABG Glucose 214 H (65-95) mg/dL POC Glucose 201 H 190 H (70-105) mg/dL Arterial Blood Glucose 214 H (65-95) mg/dL Arterial Blood Ionized Calcium 3.3 L (4.6-5.3) mg/dL 09/09/20 09/09/20 09/09/20 Range/Units 09:52 14:20 17:45 POC ABG pO2 (83-108) mmHg ABG Hemoglobin (12.0-17.5) ABG Oxyhemoglobin (94-98) ABG Sodium (136.0-145.0) mmol/L ABG Chloride (98-107) mmol/L ABG Glucose (65-95) mg/dL POC Glucose 159 H 161 H 140 H (70-105) mg/dL Arterial Blood Glucose (65-95) mg/dL Arterial Blood Ionized Calcium (4.6-5.3) mg/dL Cr 9.8 on 09/07/20. Nephrology is holding HD b/o pt's poor prognosis. Assessment and Plan - Patient Problems (1) Anoxic encephalopathy Current Visit: Yes Status: Acute Plan to address problem: 1) Check CBC and BMP 2) NPO after MN 3) D/w hospitalist. Is HD going to be resumed? 4) D/w family if HD is going to be resumed.
[2020-09-10] MEDS: INSULIN REGULAR, HUMAN 100 UNITS/1 ML SUB-Q SCH ×7 (01:32→22:30)
[2020-09-10] MEDS: DEXTROSE 50% IN WATER (25GM) 50 ML SYRINGE IV PRN ×2 (05:10→22:31)
[2020-09-10] MEDS: levETIRAcetam 500 MG/5 ML ORAL LIQD PO SCH ×3 (05:11→22:31)
[2020-09-10] MEDS ORDERED: D5W/0.45% NACL 1,000 ML IV SCH (06:00)
[2020-09-10] MEDS: HEPARIN 5,000 UNIT/1 ML VIAL SUB-Q SCH ×3 (06:24→22:31)
[2020-09-10] MEDS: NITROGLYCERIN 0.4 MG PATCH 24HR TD SCH (06:27)
[2020-09-10 07:34] LABS: Hemoglobin 6.5 gm/dl (10.1-14.3); Mean Corpuscular HGB Conc 34 % (30-34); Mean Corpuscular Volume 102 fl (79-97); Platelet Count 121 K/mm3 (140-440); Red Blood Count 1.88 M/mm3 (3.65-5.03); Red Cell Distribution Width 17.5 % (13.2-15.2)
[2020-09-10 07:54] LABS: Hematocrit 19.1 % (30.3-42.9)
[2020-09-10 07:55] LABS: Calcium 6.8 mg/dL (8.4-10.2)
[2020-09-10 08:54] LABS: Total Cells Counted 100
[2020-09-10 08:55] LABS: Anisocytosis 1+; Large Platelets Few; Platelet Estimate Consistent w Auto; Poikilocytosis 1+; Target Cells 1+
[2020-09-10] MEDS: MIDODRINE 5 MG TAB PO SCH ×3 (09:00→22:32)
[2020-09-10] MEDS: INSULIN LISPRO 100 UNIT/ML SUB-Q SCH ×2 (09:01→15:42)
[2020-09-10] MEDS: INSULIN GLARGINE 100 UNITS/ML SUB-Q SCH (09:02)
[2020-09-10] MEDS: SENNOSIDES/DOCUSATE SODIUM 8.6/50 MG TAB FEEDTUBE SCH ×2 (09:05→22:34)
--- NOTE | 2020-09-10 09:05 | Progress Note ---
Assessment and Plan Assessment and plan: 65-year-old female with DM, HTN, HLD, ESRD on HD MWF, multiple myeloma s/p chemotherapy and stem cell transplant and current tobacco abuse was admitted through emergency room s/p out of the hospital cardiac arrest with anoxic encephalopathy, hypertensive emergency, multifocal pneumonia. COVID-19 was ru led out, patient remains intubated on ventilatory support, with very poor prognosis, family is considering hospice have not decided yet. Very poor prognosis --Patient is hypotensive; Hold blood pressure medications, gentle hydration with fluid bolus monitor blood pressures. If no improvement consider vaso-pressors as needed --Hyperkalemia; potassium levels normal range Closely monitor electrolytes --COVID-19, ruled out --S/p outside the hospital cardiac arrest; Status post CPR per ACLS protocol Continue supportive care, cardiology following --Acute hypoxic respiratory failure/intubated on ventilatory support; Continue ventilator support, wean as tolerated, nebulizers, pulmonary following --Global/diffuse anoxic brain injury/encephalopathy as evidenced by MRI; 09/01/2020 Neurology evaluated the patient. Very poor prognosis, recommend palliative care --ESRD on HD; nephrology following, HD per schedule, HD is on hold in view of patient's family considering hospice --Pericardial effusion; stable --Severe cardiomegaly; Continue antifailure medications, diuretics, beta-blockers, BENJAMIN inhibitors Input output monitoring, cardiology following --Type II diabetes mellitus; Continue Accu-Chek sliding scale coverage tube feeding, long-acting insulin Lantus Tube feeding --Transaminitis; check LFTs, trend the levels --Hypertension; patient is hypotensive Hold antihypertensives , closely monitor --h/o Multiple myeloma: Patient follows with hematology oncologist at [facility] --Current tobacco abuse; --Possible seizure activity; continue Keppra Seizure precautions --Nutrition; tube feeding per protocol --Full CODE STATUS --DC planning per case management Family considering inpatient hospice admission, Pending decision Consultants. Pulmonary critical care. Cardiology. Nephrology. Neurology. ID evaluations and recommendations Noted and appreciated DVT/GI prophylaxis: Subcu heparin, SCDs Protonix, Disposition: Hospice pending family decision Tests/imaging studies done so far: -08/29 CXR shows moderate enlargement of cardiac silhouette, diffuse bilateral mixed chest x-ray and airspace disease -08/30 CT C-spine shows no CT evidence of acute bony abnormality the cervical spine, biapical airspace disease -08/30 CT head/brain shows no CT evidence of acute intracranial hemorrhage, mild generalized parenchymal atrophy, no evidence of midline shift or mass-effect, moderate size right frontal scalp hematoma -08/30 CTA chest shows no pulmonary embolism, mildly enlarged heart, moderate sized pericardial effusion, diffuse bilateral mixed interstitial and airspace disease with associated atelectasis. -08/30 CT abdomen/pelvis with contrast shows mild fluid-filled distended stomach, dense atherosclerotic calcification of the abdominal aorta, multiple loops of moderately prominent fecalized small bowel, moderate amount of retained stool throughout the colon which may represent possible sequela impaction and constipation, multiple colonic diverticula, several calcified uterine fibroids, bibasilar mixed interstitial and airspace disease -08/30 bilateral lower extremity Doppler ultrasound shows no evidence of DVT in either lower extremity -08/30 CXR shows moderate bilateral lateral pulmonary opacities improvement -08/30 echocardiogram shows a small to moderate sized circumferential pericardial effusion, no tamponade, left ventricle systolic function normal, LVEF 55 to 60%, mild concentric LVH, trace MR, trace TR, no pulmonary hypertension -09/01 MRI brain showed diffuse restricted diffusion in the cerebral cortex consistent with global anoxic brain injury -08/31 EEG with slow wave findings The high probability of a clinically significant, sudden or life threatening deterioration of the [multi] system(s) required my full and direct attention, intervention and personal management. The aggregate critical care time was [35] minutes. This time is in addition to time spent performing reported procedures but includes the following: [x] Data Review and interpretation [x] Patient assessment and monitoring of vital signs [x] Documentation [x] Medication orders and management Brief history and daily hospital course This is 65-year-old female with diabetes mellitus, hypertension, hyperlipidemia, ESRD on HD MWF via left chest permacath, multiple myeloma s/p chemotherapy and stem cell transplant with right chest port, immature right upper extremity aVF and current tobacco abuse who presented to the emergency department on 08/30 s/p cardiac arrest after being found laying in driveway, unresponsive and in asystole by EMS after being called for shortness of breath. Patient was intubated by EMS and received 3 mg epinephrine, calcium and serum bicarbonate and ROSC was eventually achieved after 10 minutes of resuscitation. Recommend emergency department revealed hyperkalemia, CXR showed moderate enlargement of c ardiac silhouette, diffuse bilateral mixed interstitial and airspace disease with considerations to pulmonary edema or multifocal infectious process. Patient was admitted to the hospitalist service s/p cardiac arrest with anoxic encephalopathy, ESRD on HD, hypertensive emergency, multifocal pneumonia and a and has a COVID-19 PUI. CCM, nephrology, neurology infectious disease and cardiology were consulted. 08/30: This morning neurology was consulted, patient noted to have leukocytosis, hyperkalemia, metabolic acidosis and hyperglycemia. Patient had hyperphosphatemia, hypomagnesemia also. Patient had hemodialysis today per nephrology. COVID-19 PCR negative. Patient was in ED holding and admitted to the ICU later during the day. Patient is sedated on fentanyl and propofol. At the time my examination she was assist-control, rate of 28, tidal and 450, 60 PEEP and FiO2 of 60%. 08/31: Patient received hemodialysis however she is hyperkalemia again which was treated with dextrose, insulin and Kionex. Patient received hemodialysis again today per nephrology. Patient continues with with meropenem until blood cultures per infectious disease. MRI brain and EEG pending, lactulose di scontinued (which was started due to large stool burden). We will follow up on cultures and BMP. Patient also noted to be hyperglycemic and was started on long acting insulin. Family updated at bedside by nurse ela and Dr. Garces. 09/01: Patient was noted to be hypertensive yesterday evening and today so cardiology will start the patient on a nitroglycerin drip and IV metoprolol. CCM reduced rate. Patient received hemodialysis today and scheduled for MRI brain. Patient noted to be hyperkalemic and follow-up BMP shows a potassium of 4. Patient's MRI brain showed diffuse anoxic brain injury and Dr. Garces updated the family at bedside. 09/02: Patient had an MRI brain yesterday which showed global anoxic brain injury. At the time of my examination patient was on PCV CPAP with tidal volume 450, FiO2 of 30. Patient is hyperglycemic and insulin dosage increased. Family decision has not been made, Dr. Silva and / Dez updated family. Neurology has signed off 09/03: Patient continues to be hypoglycemic and long-acting insulin dosage increased. She is receiving hemodialysis today. Patient has a referral to inpatient hospice. No acute events reported overnight. CM speaking to family re hospice. Cardio changed BP medications to PO. CCM to discuss goals of care and rT to rest daily on AC at night/continue CPAP trials during the day. 09/04: Patient was noted to have possible seizure activity and was given 2 mg of Ativan by CCM. Patient was later hypotensive tensive and received a 250 mL normal saline bolus which was communicated to nephrology. Per nephrology will like to avoid excessive fluid boluses to prevent issues with fluid overload over the weekend. At the time of my exam patient was on assist control tidal line 450, rate of 12, PEEP of 6 and 25% FiO2. Patient noted to be hyper glycemic and long-acting insulin was changed. 09/05: Patient continues to be unresponsive, Keppra was added for possible seizure disorder yesterday. No family at the bedside, patient to go to hospice most likely on Sunday. 09/07; awaiting hospice placement, pending family's decision. Hyper kalemia, insulin and dextrose, IV calcium gluconate and Kayexalate Very poor prognosis, full CODE STATUS 09/08; clinically no change, patient remained intubated on ventilator support Ventilatory settings; AC, 450 tidal volume, FiO2 45%, PEEP 8, peak flow 60 Family considering hospice, pending decision 09/09; clinically no change, intubated on ventilatory support Severe anoxic brain injury, family still have to make the decision for hospice 09/10; surgery evaluation noted, surgery recommended trach and PEG The daughter refused, she is still considering hospice placement DC planning per case management History Interval history: Patient was evaluated by surgeon Dr. Kennedy, recommended trach and PEG Pending decision from family Mild drop in H&H, hemoglobin 6.5 We will transfuse 2 units of PRBC due to anemia and pending surgical procedure Patient remains intubated on ventilatory support Hospitalist Physical - Constitutional Vitals: Temp Pulse Resp BP Pulse Ox 97.7 F 60 15 124/49 100 09/10/20 03:18 09/10/20 08:00 09/10/20 08:00 09/10/20 08:00 09/10/20 08:00 General appearance: Present: no acute distress, cachectic, other (Intubated on vent, unresponsive) - EENT Eyes: Present: PERRL, EOM intact ENT: other (ET tube and Dobbhoff in place) - Neck Neck: Present: supple, normal ROM - Respiratory Respiratory effort: normal Respiratory: bilateral: diminished, negative: rales, rhonchi, wheezing - Cardiovascular Rhythm: regular Heart Sounds: Present: S1 & S2 - Extremities Extremities: no ischemia, No edema - Abdominal General gastrointestinal: soft, non-tender, non-distended, normal bowel sounds - Integumentary Integumentary: Present: clear, warm - Psychiatric Psychiatric: other (Noncommunicative) - Neurologic Neurologic: other (Intubated on vent) HEART Score - HEART Score EKG: Normal Age: > 65 Troponin: Troponin T 0.085 ng/mL (0.00-0.029) H 08/30/20 00:15 Troponin: < normal limit - Critical Actions Critical Actions: 0-3 pts:0.9-1.7%risk of adverse cardiac event.Candidate for discharge Results - Labs CBC & Chem 7: 09/10/20 07:15 09/10/20 07:15 Labs: Laboratory Last Values WBC 9.5 K/mm3 (4.5-11.0) 09/10/20 07:15 RBC 1.88 M/mm3 (3.65-5.03) L 09/10/20 07:15 Hgb 6.5 gm/dl (10.1-14.3) L 09/10/20 07:15 Hct 19.1 % (30.3-42.9) L* 09/10/20 07:15 MCV 102 fl (79-97) H 09/10/20 07:15 MCH 34 pg (28-32) H 09/10/20 07:15 MCHC 34 % (30-34) 09/10/20 07:15 RDW 17.5 % (13.2-15.2) H 09/10/20 07:15 Plt Count 121 K/mm3 (140-440) L 09/10/20 07:15 Lymph % (Auto) 8.5 % (13.4-35.0) L 09/07/20 04:12 [place] % (Auto) 9.0 % (0.0-7.3) H 09/07/20 04:12 Eos % (Auto) 0.6 % (0.0-4.3) 09/07/20 04:12 Baso % (Auto) 0.6 % (0.0-1.8) 09/07/20 04:12 Lymph # (Auto) 0.7 K/mm3 (1.2-5.4) L 09/07/20 04:12 [place] # (Auto) 0.8 K/mm3 (0.0-0.8) 09/07/20 04:12 Eos # (Auto) 0.1 K/mm3 (0.0-0.4) 09/07/20 04:12 Baso # (Auto) 0.1 K/mm3 (0.0-0.1) 09/07/20 04:12 Add Manual Diff Complete 09/10/20 07:15 Total Counted 100 09/10/20 07:15 Seg Neutrophils % 81.3 % (40.0-70.0) H 09/07/20 04:12 Seg Neuts % (Manual) 93.0 % (40.0-70.0) H 09/10/20 07:15 Band Neutrophils % 1.0 % 08/30/20 00:15 Lymphocytes % (Manual) 4.0 % (13.4-35.0) L 09/10/20 07:15 Monocytes % (Manual) 3.0 % (0.0-7.3) 09/10/20 07:15 Eosinophils % (Manual) 3.0 % (0.0-4.3) 08/30/20 00:15 Nucleated RBC % Not Reportable 09/10/20 07:15 Seg Neutrophils # 7.1 K/mm3 (1.8-7.7) 09/07/20 04:12 Seg Neutrophils # Man 8.8 K/mm3 (1.8-7.7) H 09/10/20 07:15 Band Neutrophils # 0.0 K/mm3 09/10/20 07:15 Lymphocytes # (Manual) 0.4 K/mm3 (1.2-5.4) L 09/10/20 07:15 Abs React Lymphs (Man) 0.0 K/mm3 09/10/20 07:15 Monocytes # (Manual) 0.3 K/mm3 (0.0-0.8) 09/10/20 07:15 Eosinophils # (Manual) 0.0 K/mm3 (0.0-0.4) 09/10/20 07:15 Basophils # (Manual) 0.0 K/mm3 (0.0-0.1) 09/10/20 07:15 Metamyelocytes # 0.0 K/mm3 09/10/20 07:15 Myelocytes # 0.0 K/mm3 09/10/20 07:15 Promyelocytes # 0.0 K/mm3 09/10/20 07:15 Blast Cells # 0.0 K/mm3 09/10/20 07:15 WBC Morphology Not Reportable 09/10/20 07:15 Hypersegmented Neuts Not Reportable 09/10/20 07:15 Hyposegmented Neuts Not Reportable 09/10/20 07:15 Hypogranular Neuts Not Reportable 09/10/20 07:15 Smudge Cells Not Reportable 09/10/20 07:15 Toxic Granulation Not Reportable 09/10/20 07:15 Toxic Vacuolation Not Reportable 09/10/20 07:15 Dohle Bodies Not Reportable 09/10/20 07:15 Pelger-Huet Anomaly Not Reportable 09/10/20 07:15 Lolita Rods Not Reportable 09/10/20 07:15 Platelet Estimate Consistent w auto 09/10/20 07:15 Clumped Platelets Not Reportable 09/10/20 07:15 Plt Clumps, EDTA Not Reportable 09/10/20 07:15 Large Platelets Few 09/10/20 07:15 Giant Platelets Not Reportable 09/10/20 07:15 Platelet Satelliting Not Reportable 09/10/20 07:15 Plt Morphology Comment Not Reportable 09/10/20 07:15 RBC Morphology Not Reportable 09/10/20 07:15 Dimorphic RBCs Not Reportable 09/10/20 07:15 Polychromasia Not Reportable 09/10/20 07:15 Hypochromasia Not Reportable 09/10/20 07:15 Poikilocytosis 1+ 09/10/20 07:15 Anisocytosis 1+ 09/10/20 07:15 Microcytosis Not Reportable 09/10/20 07:15 Macrocytosis Not Reportable 09/10/20 07:15 Spherocytes Not Reportable 09/10/20 07:15 Pappenheimer Bodies Not Reportable 09/10/20 07:15 Sickle Cells Not Reportable 09/10/20 07:15 Target Cells 1+ 09/10/20 07:15 Tear Drop Cells Not Reportable 09/10/20 07:15 Ovalocytes Not Reportable 09/10/20 07:15 Helmet Cells Not Reportable 09/10/20 07:15 [place] Bodies Not Reportable 09/10/20 07:15 [place] Rings Not Reportable 09/10/20 07:15 [place] Cells Not Reportable 09/10/20 07:15 Bite Cells Not Reportable 09/10/20 07:15 Crenated Cell Not Reportable 09/10/20 07:15 Elliptocytes Not Reportable 09/10/20 07:15 Acanthocytes (Spur) Not Reportable 09/10/20 07:15 Rouleaux Not Reportable 09/10/20 07:15 Hemoglobin C Crystals Not Reportable 09/10/20 07:15 Schistocytes Not Reportable 09/10/20 07:15 Malaria parasites Not Reportable 09/10/20 07:15 Maurice Bodies Not Reportable 09/10/20 07:15 Hem Pathologist Commnt No 09/10/20 07:15 PT 12.8 Sec. (12.2-14.9) 08/31/20 05:45 INR 0.90 (0.87-1.13) 08/31/20 05:45 D-Dimer > 06383 ng/mlDDU (0-234) H 08/30/20 03:10 ABG pH 7.381 (7.320-7.450) 09/10/20 03:07 POC ABG pCO2 38.3 mmHg (32.0-48.0) 09/10/20 03:07 ABG pCO2 38.0 mm Hg 09/02/20 03:40 POC ABG pO2 63.5 mmHg (83-108) L 09/10/20 03:07 ABG pO2 83.1 mm Hg (80.0-90.0) 09/02/20 03:40 POC ABG HCO3 22.2 09/10/20 03:07 ABG HCO3 29.4 mmol/L (20.0-26.0) H 09/02/20 03:40 ABG O2 Saturation 89.5 (0-100) 09/10/20 03:07 ABG O2 Content 11.2 (0.0-44) 09/02/20 03:40 POC ABG Base Excess -2.6 09/10/20 03:07 ABG Base Excess 5.9 mmol/L (-2.0-3.0) H 09/02/20 03:40 ABG Hemoglobin 7.0 (12.0-17.5) L 09/10/20 03:07 ABG Oxyhemoglobin 88.3 (94-98) L 09/10/20 03:07 ABG Carboxyhemoglobin 1.9 % (0.0-5.0) 09/02/20 03:40 ABG Methemoglobin 0.2 (0.0-1.5) 09/10/20 03:07 ABG Sodium 130.1 mmol/L (136.0-145.0) L 09/10/20 03:07 ABG Potassium 5.0 mmol/L (3.40-4.50) H 09/10/20 03:07 ABG Chloride 87.0 mmol/L (98-107) L 09/10/20 03:07 ABG Glucose 88 mg/dL (65-95) 09/10/20 03:07 Oxyhemoglobin 94.8 % (95.0-99.0) L 09/02/20 03:40 Carboxyhemoglobin 1.1 (0.5-1.5) 09/10/20 03:07 FiO2 30 % 09/02/20 03:40 FiO2 % 40.0 09/10/20 03:07 Sodium 137 mmol/L (137-145) 09/10/20 07:15 Potassium 5.2 mmol/L (3.6-5.0) H 09/10/20 07:15 Chloride 84.4 mmol/L (98-107) L 09/10/20 07:15 Carbon Dioxide 23 mmol/L (22-30) 09/10/20 07:15 Anion Gap 35 mmol/L 09/10/20 07:15 BUN 189 mg/dL (7-17) H 09/10/20 07:15 Creatinine 12.4 mg/dL (0.6-1.2) H 09/10/20 07:15 Estimated GFR 4 ml/min 09/10/20 07:15 BUN/Creatinine Ratio 15 % 09/10/20 07:15 Glucose 118 mg/dL (65-100) H 09/10/20 07:15 POC Glucose 107 mg/dL (70-105) H 09/10/20 08:35 Calcium 6.8 mg/dL (8.4-10.2) L 09/10/20 07:15 Phosphorus 11.50 mg/dL (2.5-4.5) H 08/30/20 00:15 Magnesium 3.80 mg/dL (1.7-2.3) H 08/30/20 00:15 Ferritin 830.0 ng/mL (10.0-200.0) H 08/30/20 03:10 Total Bilirubin 0.40 mg/dL (0.1-1.2) 08/30/20 15:03 AST 68 units/L (5-40) H 08/30/20 15:03 ALT 41 units/L (7-56) 08/30/20 15:03 Alkaline Phosphatase 364 units/L (35-129) H 08/30/20 15:03 Lactate Dehydrogenase 400 units/L (91-180) H 08/30/20 03:10 Troponin T 0.085 ng/mL (0.00-0.029) H 08/30/20 00:15 C-Reactive Protein 0.20 mg/dL (0.00-1.30) 08/30/20 03:10 Total Protein 6.4 g/dL (6.3-8.2) 08/30/20 15:03 Albumin 3.7 g/dL (3.9-5) L 08/30/20 15:03 Albumin/Globulin Ratio 1.4 % 08/30/20 15:03 Triglycerides 61 mg/dL (2-149) 08/30/20 00:15 Cholesterol 150 mg/dL (50-199) 08/30/20 00:15 LDL Cholesterol Direct 71 mg/dL (50-130) 08/30/20 00:15 HDL Cholesterol 66 mg/dL (40-59) H 08/30/20 00:15 Cholesterol/HDL Ratio 2.27 % 08/30/20 00:15 Procalcitonin 4.16 ng/mL (<0.15) 08/30/20 03:10 Arterial Blood Glucose 88 mg/dL (65-95) 09/10/20 03:07 Arterial Blood Ionized Calcium 3.2 mg/dL (4.6-5.3) L 09/10/20 03:07 Coronavirus (PCR) Negative (Negative) 08/30/20 Unknown Hepatitis A IgM Ab Non-reactive (NonReactive) 08/30/20 07:35 Hep Bs Antigen Non-reactive (Negative) 08/30/20 07:35 Hep B Core IgM Ab Non-reactive (NonReactive) 08/30/20 07:35 Hepatitis C Antibody Non-reactive (NonReactive) 08/30/20 07:35 Johns/IV: Voiding Method Incontinent Active Medications - Current Medications Current Medications: Generic Name Dose Route Start Last Admin Trade Name Freq PRN Reason Stop Dose Admin Acetaminophen 650 mg 09/01/20 00:27 09/04/20 04:34 Acetaminophen 325 Mg/10.15 Ml Oral Liqd Unit Dose FEEDTUBE 650 mg Q6H PRN Administration Non Cardiac Pain or Temp>100.5 Amlodipine Besylate 10 mg 09/03/20 11:00 09/09/20 11:02 Amlodipine 10 Mg Tab PO Not Given QDAY ANIYAH Lipase/Protease/Amylase 1 each 08/30/20 14:27 Lipase 10,500/Protease 25,000/Amylase 43,750 (Units) Dr Duran FEEDTUBE PRN PRN For Clogged Feeding Tube Dextrose 50 ml 08/30/20 19:48 09/10/20 05:10 Dextrose 50% In Water (25gm) 50 Ml Syringe IV 50 ml Q30MIN PRN Administration Hypoglycemia Protocol Famotidine 20 mg 09/02/20 10:00 09/09/20 09:15 Famotidine 20 Mg Tab PO 20 mg DAILY ANIYAH Administration Heparin Sodium (Porcine) 5,000 unit 08/30/20 06:00 09/10/20 06:24 Heparin 5,000 Unit/1 Ml Vial SUB-Q Not Given Q8HR ANIYAH Hydralazine HCl 10 mg 08/31/20 18:14 09/04/20 04:34 Hydralazine 20 Mg/1 Ml Inj IV 10 mg Q4HR PRN Administration Hypertension Hydrophilic Ointment 1 applic 08/30/20 14:05 Lip Therapy Vaseline TP Q2HR PRN Dry Lips Sodium Chloride 100 mls @ 999 mls/hr 08/30/20 09:00 Nacl 0.9% IV ARMIDA PRN Hypotension Dextrose/Sodium Chloride 1,000 mls @ 15 mls/hr 09/10/20 06:00 09/10/20 06:38 D5/0.45ns IV 15 mls/hr DIRECT ANIYAH Administration Sodium Chloride 500 mls @ 0 mls/hr 09/10/20 09:01 Nacl 0.9% 500 Ml IV 09/10/20 09:02 ONCE ONE As Directed Insulin Glargine 30 units 09/03/20 10:00 09/09/20 11:02 Insulin Glargine 100 Units/Ml SUB-Q 30 units DAILY ANIYAH Administration Insulin Human Lispro 5 unit 09/04/20 08:00 09/09/20 21:23 Insulin Lispro 100 Unit/Ml SUB-Q Not Given TID [facility] Insulin Human Regular 0 units 09/01/20 10:00 09/10/20 06:24 Insulin Regular, Human 100 Units/1 Ml SUB-Q Not Given Q4HR [facility] Protocol Levetiracetam 750 mg 09/04/20 22:00 09/10/20 05:11 Levetiracetam 500 Mg/5 Ml Oral Liqd PO 750 mg BID ANIYAH Administration Magnesium Hydroxide 30 ml 08/30/20 04:41 Magnesium Hydroxide (Mom) Oral Liqd Udc PO Q4H PRN Constipation Metoprolol Tartrate 50 mg 09/03/20 11:00 09/09/20 21:53 Metoprolol Tartrate 50 Mg Tab PO 50 mg BID [facility] Administration Midodrine 10 mg 09/09/20 14:00 09/09/20 19:40 Midodrine 5 Mg Tab PO Not Given TID [facility] Multi-Ingred Cream/Lotion/Oil/Oint 1 applic 08/30/20 14:05 09/09/20 09:00 Mineral Oil/Petrolatum, White Ophth Oint 3.5 Gm OU 1 applic Q4HR PRN Administration Dry Eye(s) Nitroglycerin 0.4 mg 09/04/20 06:00 09/10/20 06:27 Nitroglycerin 0.4 Mg Patch 24hr TD 0.4 mg QDAY@0600 [facility] Administration Ondansetron HCl 4 mg 08/30/20 04:41 Ondansetron 4 Mg/2 Ml Inj IV Q8H PRN Nausea And Vomiting Senna/Docusate Sodium 1 tab 08/30/20 22:00 09/09/20 21:54 Sennosides/Docusate Sodium 8.6/50 Mg Tab FEEDTUBE 1 tab BID [facility] Administration Simple Syrup 15 ml 08/30/20 14:27 Simple Syrup 15 Ml FEEDTUBE PRN PRN Hypoglycemia Simple Syrup 30 ml 08/30/20 14:27 Simple Syrup 15 Ml FEEDTUBE PRN PRN Hypoglycemia Sodium Bicarbonate 325 mg 08/30/20 14:27 09/05/20 08:26 Sodium Bicarbonate 325 Mg Tab FEEDTUBE 325 mg PRN PRN Administration For Clogged Feeding Tube Sodium Chloride 10 ml 08/30/20 10:00 09/09/20 09:15 Sodium Chloride 0.9% 10 Ml Flush Syringe IV 10 ml BID ANIYAH Administration Sodium Chloride 10 ml 08/30/20 04:41 Sodium Chloride 0.9% 10 Ml Flush Syringe IV PRN PRN LINE FLUSH Nutrition/Malnutrition Assess - Dietary Evaluation Nutrition/Malnutrition Findings: Nutrition Notes Start: 08/30/20 07:40 Freq: Status: Active Protocol: Document 09/06/20 13:24 [facility] (Rec: 09/06/20 13:25 [facility] [id number]) Nutrition Notes Initial or Follow up Brief Note Current Diet TF - Nepro at 35ml/hr Subjective/Other Information Pt was tolerating TF at goal rate on 09/03. She remains on vent support; possible transfer to hospice. Nutrition Intervention Follow-Up By: 09/10/20 Additional Comments F/U: stable TF, vent status, wt
[2020-09-10] MEDS: FAMOTIDINE 20 MG TAB PO SCH (09:06)
[2020-09-10] MEDS: amLODIPine 10 MG TAB PO SCH (09:06)
[2020-09-10] MEDS: METOPROLOL TARTRATE 50 MG TAB PO SCH ×2 (09:06→22:34)
[2020-09-10] MEDS ORDERED: SODIUM CHLORIDE 0.9% 500 ML 500 ML IV SCH (10:00)
--- NOTE | 2020-09-10 11:29 | Progress Note ---
Assessment and Plan Cardiac arrest with return of spontaneous circulation Acute hypoxemic respiratory failure Bilateral pneumonia, possibly aspiration Bilateral pulmonary edema End-stage renal disease, on dialysis NSTEMI Severe hyperkalemia History of multiple myeloma History of hypertension Anemia that is microcytic Elevated serum troponin (Discussed at length with her daughter yesterday and explained the concept of substituted judgment after she states that she felt like she might be causing harm [killing] her mother if she agrees to hospice care; i also explained the concept of allowing natural and she will speak further with patients ) - tentatively for transfer to hospice care - daughter to decide on code status - continue care as below otherwise; - continue Daily SAT and SBT assessment as tolerated - continue to wean supplemental oxygen for target O2 sat's > 90% acutely - VAP bundle addressed - continue lung protective strategies - continue bronchodilators with pulmonary hygiene per RT - wean per pulmonary driven protocols otherwise - continue HD/UF for toxin and volume clearance (on hold now) - avoid nephrotoxins, renally dose all medications - continue accuchecks with glycemic control per SSI (While critically ill target blood glucose of 140-180 mg/dL; avoid hypoglycemia) - sedation prn for target RASS 0 to -1 - continue to avoid benzodiazepine's, reduce the possibility of delirium - complete AB's per ID rec's - prn analgesia per CPOT score - Maintenance of sleep-wake cycle, avoid delirium - continue enteral nutritional support at goal rate as tolerated - G.I. & VTE prophylaxis - PT/OT/ROM exercises - continue mobility protocols for pressure ulcer prophylaxis - Monitor hemodynamics closely - continue other care per attending / other consultants - discharge planning ongoing concurrently COVID SPECIFIC INTERVENTIONS - COVID PCR negative .... Re-evaluate in am & prn CONDITION: CRITICAL PROGNOSIS: GUARDED CODE STATUS: FULL CODE The high probability of a clinically significant, sudden or life-threatening deterioration of the [respiratory, cardiovascular, hematologic, renal & neurolo gic] system(s) required my full and direct attention, intervention and personal management. The aggregate critical care time was [32] minutes without overlap. Time includes spent on; [x] Data Review and interpretation [x] Patient assessment and monitoring of vital signs [x] Documentation [x] Medication orders and management Subjective Date of service: 09/10/20 Principal diagnosis: Cardiac arrest; Ac. hypoxemic resp failure; PNA; ESRD; NSTEMI; Hyperkalemia Interval history: Patient is seen today for: Cardiac arrest with ROSC; Acute hypoxemic respiratory failure; Aspiration Pneumonia; ESRD on dialysis; NSTEMI; Hyperkalemia Seen and examined at bedside; 24hour events reviewed; nursing and respiratory care staff consulted; no adverse overnight events reported to me; resting peacefully in bed; daughter has refused trach and PEG and wants to go to hospice Objective Vital Signs - 12hr 09/09/20 09/09/20 09/10/20 23:30 23:46 00:00 Temperature 97.7 F Pulse Rate 60 59 L Pulse Rate [ 62 From Monitor] Respiratory 18 16 Rate Blood Pressure 130/45 137/47 O2 Sat by Pulse 100 100 Oximetry 09/10/20 09/10/20 09/10/20 00:09 00:30 01:00 Temperature Pulse Rate 61 60 61 Pulse Rate [ From Monitor] Respiratory 12 13 Rate Blood Pressure 131/45 132/45 131/43 O2 Sat by Pulse 100 100 100 Oximetry 09/10/20 09/10/20 09/10/20 01:30 02:00 02:30 Temperature Pulse Rate 60 61 63 Pulse Rate [ From Monitor] Respiratory 15 14 21 Rate Blood Pressure 126/42 133/46 133/46 O2 Sat by Pulse 100 100 98 Oximetry 09/10/20 09/10/20 09/10/20 03:00 03:18 03:30 Temperature 97.7 F Pulse Rate 62 63 Pulse Rate [ From Monitor] Respiratory 12 20 Rate Blood Pressure 134/47 133/47 O2 Sat by Pulse 100 100 Oximetry 09/10/20 09/10/20 09/10/20 04:00 04:30 05:00 Temperature Pulse Rate 63 63 63 Pulse Rate [ 63 From Monitor] Respiratory 20 18 17 Rate Blood Pressure 136/47 141/48 137/46 O2 Sat by Pulse 99 100 100 Oximetry 09/10/20 09/10/20 09/10/20 05:30 06:00 06:27 Temperature Pulse Rate 67 60 60 Pulse Rate [ From Monitor] Respiratory 12 13 Rate Blood Pressure 150/45 134/51 135/51 O2 Sat by Pulse 100 100 Oximetry 09/10/20 09/10/20 09/10/20 06:30 07:00 07:20 Temperature Pulse Rate 59 L 58 L 61 Pulse Rate [ From Monitor] Respiratory 16 15 Rate Blood Pressure 124/51 124/51 124/49 O2 Sat by Pulse 100 100 97 Oximetry 09/10/20 09/10/20 09/10/20 07:30 08:00 08:30 Temperature Pulse Rate 62 59 L 58 L Pulse Rate [ 60 From Monitor] Respiratory 17 20 19 Rate Blood Pressure 133/53 124/49 117/48 O2 Sat by Pulse 97 97 98 Oximetry 09/10/20 09/10/20 09/10/20 08:55 09:00 09:30 Temperature Pulse Rate 58 L 59 L 58 L Pulse Rate [ From Monitor] Respiratory 19 19 17 Rate Blood Pressure 117/51 117/51 113/46 O2 Sat by Pulse 98 99 100 Oximetry 09/10/20 09/10/20 09/10/20 10:00 10:11 10:21 Temperature Pulse Rate 58 L 61 56 L Pulse Rate [ From Monitor] Respiratory 16 21 16 Rate Blood Pressure 112/41 112/41 112/41 O2 Sat by Pulse 100 100 100 Oximetry 09/10/20 09/10/20 09/10/20 10:30 10:41 10:57 Temperature 97.4 F L Pulse Rate 57 L 58 L 58 L Pulse Rate [ From Monitor] Respiratory 16 19 19 Rate Blood Pressure 114/45 114/45 124/45 O2 Sat by Pulse 100 100 100 Oximetry 09/10/20 11:12 Temperature 97.4 F L Pulse Rate 57 L Pulse Rate [ From Monitor] Respiratory 20 Rate Blood Pressure 122/46 O2 Sat by Pulse 100 Oximetry Constitutional: appears uncomfortable, other (elderly female riding set rate at rest on MVS) Eyes: non-icteric ENT: oropharynx moist, other (ETT 23 cm COLLEEN) Neck: supple, no lymphadenopathy, no JVD Effort: normal Ascultation: Bilateral: rhonchi Percussion: Bilateral: not dull Cardiovascular: regular rate and rhythm, other (S1,S2) Gastrointestinal: normoactive bowel sounds, soft, non-tender, non-distended Integumentary: normal Extremities: no cyanosis, pulses normal, no ischemia or petechiae Neurologic: pupils equal and round (dilated), other (unresponsive, not obeying commands) Psychiatric: other (unable to assess re: AMS) CBC and BMP: 09/10/20 07:15 09/10/20 07:15 ABG, PT/INR, D-dimer: ABG ABG pH 7.381 (7.320-7.450) 09/10/20 03:07 POC ABG pCO2 38.3 mmHg (32.0-48.0) 09/10/20 03:07 ABG pCO2 38.0 mm Hg 09/02/20 03:40 POC ABG pO2 63.5 mmHg (83-108) L 09/10/20 03:07 ABG pO2 83.1 mm Hg (80.0-90.0) 09/02/20 03:40 POC ABG HCO3 22.2 09/10/20 03:07 ABG O2 Saturation 89.5 (0-100) 09/10/20 03:07 PT/INR, D-dimer PT 12.8 Sec. (12.2-14.9) 08/31/20 05:45 INR 0.90 (0.87-1.13) 08/31/20 05:45 D-Dimer > 22212 ng/mlDDU (0-234) H 08/30/20 03:10 Abnormal lab findings: Abnormal Labs 08/30/20 08/30/20 08/30/20 00:14 00:15 00:15 WBC RBC 2.83 L Hgb 9.8 L Hct MCV 112 H MCH 35 H RDW 19.9 H Plt Count 95 L Lymph % (Auto) [place] % (Auto) Lymph # (Auto) Seg Neutrophils % Seg Neuts % (Manual) Lymphocytes % (Manual) Nucleated RBC % 1.0 H Seg Neutrophils # Seg Neutrophils # Man Lymphocytes # (Manual) D-Dimer ABG pH 7.199 L POC ABG pCO2 49.3 H POC ABG pO2 ABG HCO3 ABG Base Excess ABG Hemoglobin 11.9 L ABG Oxyhemoglobin 93.0 L ABG Sodium ABG Potassium 6.9 H ABG Chloride ABG Glucose 158 H Oxyhemoglobin Carboxyhemoglobin 2.8 H Sodium Potassium 7.0 H* Chloride Carbon Dioxide 18 L BUN 68 H Creatinine 8.3 H Glucose 174 H POC Glucose Calcium Phosphorus Magnesium Ferritin AST 68 H Alkaline Phosphatase 414 H Lactate Dehydrogenase Troponin T 0.085 H Total Protein 5.6 L Albumin 3.4 L HDL Cholesterol 66 H Arterial Blood Glucose 158 H Arterial Blood Ionized Calcium Crossmatch 08/30/20 08/30/20 08/30/20 00:15 00:15 03:10 WBC RBC Hgb Hct MCV MCH RDW Plt Count Lymph % (Auto) [place] % (Auto) Lymph # (Auto) Seg Neutrophils % Seg Neuts % (Manual) Lymphocytes % (Manual) Nucleated RBC % Seg Neutrophils # Seg Neutrophils # Man Lymphocytes # (Manual) D-Dimer 6083.16 H > 11816 H ABG pH POC ABG pCO2 POC ABG pO2 ABG HCO3 ABG Base Excess ABG Hemoglobin ABG Oxyhemoglobin ABG Sodium ABG Potassium ABG Chloride ABG Glucose Oxyhemoglobin Carboxyhemoglobin Sodium Potassium Chloride Carbon Dioxide BUN Creatinine Glucose POC Glucose Calcium Phosphorus 11.50 H Magnesium 3.80 H Ferritin AST Alkaline Phosphatase Lactate Dehydrogenase Troponin T Total Protein Albumin HDL Cholesterol Arterial Blood Glucose Arterial Blood Ionized Calcium Crossmatch 08/30/20 08/30/20 08/30/20 03:10 03:10 04:49 WBC RBC Hgb Hct MCV MCH RDW Plt Count Lymph % (Auto) [place] % (Auto) Lymph # (Auto) Seg Neutrophils % Seg Neuts % (Manual) Lymphocytes % (Manual) Nucleated RBC % Seg Neutrophils # Seg Neutrophils # Man Lymphocytes # (Manual) D-Dimer ABG pH POC ABG pCO2 POC ABG pO2 ABG HCO3 ABG Base Excess ABG Hemoglobin 10.8 L ABG Oxyhemoglobin ABG Sodium ABG Potassium 6.7 H ABG Chloride ABG Glucose 137 H Oxyhemoglobin Carboxyhemoglobin Sodium Potassium Chloride Carbon Dioxide BUN Creatinine Glucose 126 H POC Glucose Calcium Phosphorus Magnesium Ferritin 830.0 H AST Alkaline Phosphatase Lactate Dehydrogenase 400 H Troponin T Total Protein Albumin HDL Cholesterol Arterial Blood Glucose 137 H Arterial Blood Ionized Calcium 4.5 L Crossmatch 08/30/20 08/30/20 08/30/20 07:13 15:03 15:03 WBC 17.2 H RBC 3.23 L Hgb Hct MCV 108 H MCH 34 H RDW 19.4 H Plt Count 90 L Lymph % (Auto) [place] % (Auto) Lymph # (Auto) Seg Neutrophils % Seg Neuts % (Manual) Lymphocytes % (Manual) Nucleated RBC % Seg Neutrophils # Seg Neutrophils # Man Lymphocytes # (Manual) D-Dimer ABG pH POC ABG pCO2 POC ABG pO2 ABG HCO3 ABG Base Excess ABG Hemoglobin ABG Oxyhemoglobin ABG Sodium ABG Potassium ABG Chloride ABG Glucose Oxyhemoglobin Carboxyhemoglobin Sodium Potassium 8.2 H* 6.5 H* D Chloride 96.7 L Carbon Dioxide 21 L BUN 52 H Creatinine 5.7 H Glucose 220 H POC Glucose Calcium Phosphorus Magnesium Ferritin AST 68 H Alkaline Phosphatase 364 H Lactate Dehydrogenase Troponin T Total Protein Albumin 3.7 L HDL Cholesterol Arterial Blood Glucose Arterial Blood Ionized Calcium Crossmatch 08/30/20 08/30/20 08/31/20 17:27 21:03 04:07 WBC RBC Hgb Hct MCV MCH RDW Plt Count Lymph % (Auto) [place] % (Auto) Lymph # (Auto) Seg Neutrophils % Seg Neuts % (Manual) Lymphocytes % (Manual) Nucleated RBC % Seg Neutrophils # Seg Neutrophils # Man Lymphocytes # (Manual) D-Dimer ABG pH 7.498 H POC ABG pCO2 27.9 L POC ABG pO2 126.9 H ABG HCO3 ABG Base Excess ABG Hemoglobin 10.1 L ABG Oxyhemoglobin 98.3 H ABG Sodium 134.3 L ABG Potassium 6.7 H ABG Chloride ABG Glucose 261 H Oxyhemoglobin Carboxyhemoglobin 0.1 L Sodium Potassium Chloride Carbon Dioxide BUN Creatinine Glucose POC Glucose 223 H 230 H Calcium Phosphorus Magnesium Ferritin AST Alkaline Phosphatase Lactate Dehydrogenase Troponin T Total Protein Albumin HDL Cholesterol Arterial Blood Glucose 261 H Arterial Blood Ionized Calcium 3.6 L Crossmatch 08/31/20 08/31/20 08/31/20 05:01 05:45 05:45 WBC 13.1 H RBC 2.83 L Hgb 9.6 L Hct 29.8 L MCV 105 H MCH 34 H RDW 18.9 H Plt Count 88 L Lymph % (Auto) 6.9 L [place] % (Auto) Lymph # (Auto) 0.9 L Seg Neutrophils % 87.8 H Seg Neuts % (Manual) Lymphocytes % (Manual) Nucleated RBC % Seg Neutrophils # 11.5 H Seg Neutrophils # Man Lymphocytes # (Manual) D-Dimer ABG pH POC ABG pCO2 POC ABG pO2 ABG HCO3 ABG Base Excess ABG Hemoglobin ABG Oxyhemoglobin ABG Sodium ABG Potassium ABG Chloride ABG Glucose Oxyhemoglobin Carboxyhemoglobin Sodium Potassium 7.1 H* Chloride 96.7 L Carbon Dioxide BUN 74 H Creatinine 7.0 H Glucose 254 H POC Glucose 256 H Calcium 7.6 L Phosphorus Magnesium Ferritin AST Alkaline Phosphatase Lactate Dehydrogenase Troponin T Total Protein Albumin HDL Cholesterol Arterial Blood Glucose Arterial Blood Ionized Calcium Crossmatch 08/31/20 08/31/20 09/01/20 11:38 23:31 03:13 WBC RBC Hgb Hct MCV MCH RDW Plt Count Lymph % (Auto) [place] % (Auto) Lymph # (Auto) Seg Neutrophils % Seg Neuts % (Manual) Lymphocytes % (Manual) Nucleated RBC % Seg Neutrophils # Seg Neutrophils # Man Lymphocytes # (Manual) D-Dimer ABG pH 7.519 H POC ABG pCO2 POC ABG pO2 ABG HCO3 ABG Base Excess ABG Hemoglobin 9.3 L ABG Oxyhemoglobin ABG Sodium 134.7 L ABG Potassium ABG Chloride 94.0 L ABG Glucose 441 H Oxyhemoglobin Carboxyhemoglobin Sodium Potassium Chloride Carbon Dioxide BUN Creatinine Glucose POC Glucose 294 H 426 H Calcium Phosphorus Magnesium Ferritin AST Alkaline Phosphatase Lactate Dehydrogenase Troponin T Total Protein Albumin HDL Cholesterol Arterial Blood Glucose 441 H Arterial Blood Ionized Calcium 3.8 L Crossmatch 09/01/20 09/01/20 09/01/20 05:20 10:32 11:45 WBC RBC Hgb Hct MCV MCH RDW Plt Count Lymph % (Auto) [place] % (Auto) Lymph # (Auto) Seg Neutrophils % Seg Neuts % (Manual) Lymphocytes % (Manual) Nucleated RBC % Seg Neutrophils # Seg Neutrophils # Man Lymphocytes # (Manual) D-Dimer ABG pH POC ABG pCO2 POC ABG pO2 ABG HCO3 ABG Base Excess ABG Hemoglobin ABG Oxyhemoglobin ABG Sodium ABG Potassium ABG Chloride ABG Glucose Oxyhemoglobin Carboxyhemoglobin Sodium Potassium Chloride Carbon Dioxide BUN Creatinine Glucose POC Glucose 422 H 227 H 203 H Calcium Phosphorus Magnesium Ferritin AST Alkaline Phosphatase Lactate Dehydrogenase Troponin T Total Protein Albumin HDL Cholesterol Arterial Blood Glucose Arterial Blood Ionized Calcium Crossmatch 09/01/20 09/01/20 09/01/20 13:34 17:11 17:29 WBC RBC Hgb Hct MCV MCH RDW Plt Count Lymph % (Auto) [place] % (Auto) Lymph # (Auto) Seg Neutrophils % Seg Neuts % (Manual) Lymphocytes % (Manual) Nucleated RBC % Seg Neutrophils # Seg Neutrophils # Man Lymphocytes # (Manual) D-Dimer ABG pH POC ABG pCO2 POC ABG pO2 ABG HCO3 ABG Base Excess ABG Hemoglobin ABG Oxyhemoglobin ABG Sodium ABG Potassium ABG Chloride ABG Glucose Oxyhemoglobin Carboxyhemoglobin Sodium Potassium Chloride 94.5 L Carbon Dioxide BUN 29 H Creatinine 3.4 H D Glucose 241 H POC Glucose 212 H 198 H Calcium 8.2 L Phosphorus Magnesium Ferritin AST Alkaline Phosphatase Lactate Dehydrogenase Troponin T Total Protein Albumin HDL Cholesterol Arterial Blood Glucose Arterial Blood Ionized Calcium Crossmatch 09/01/20 09/02/20 09/02/20 21:33 03:08 03:40 WBC RBC Hgb Hct MCV MCH RDW Plt Count Lymph % (Auto) [place] % (Auto) Lymph # (Auto) Seg Neutrophils % Seg Neuts % (Manual) Lymphocytes % (Manual) Nucleated RBC % Seg Neutrophils # Seg Neutrophils # Man Lymphocytes # (Manual) D-Dimer ABG pH 7.506 H POC ABG pCO2 POC ABG pO2 ABG HCO3 29.4 H ABG Base Excess 5.9 H ABG Hemoglobin 8.3 L ABG Oxyhemoglobin ABG Sodium ABG Potassium ABG Chloride ABG Glucose Oxyhemoglobin 94.8 L Carboxyhemoglobin Sodium Potassium Chloride Carbon Dioxide BUN Creatinine Glucose POC Glucose 188 H 179 H Calcium Phosphorus Magnesium Ferritin AST Alkaline Phosphatase Lactate Dehydrogenase Troponin T Total Protein Albumin HDL Cholesterol Arterial Blood Glucose Arterial Blood Ionized Calcium Crossmatch 09/02/20 09/02/20 09/02/20 05:55 07:12 09:28 WBC RBC Hgb Hct MCV MCH RDW Plt Count Lymph % (Auto) [place] % (Auto) Lymph # (Auto) Seg Neutrophils % Seg Neuts % (Manual) Lymphocytes % (Manual) Nucleated RBC % Seg Neutrophils # Seg Neutrophils # Man Lymphocytes # (Manual) D-Dimer ABG pH POC ABG pCO2 POC ABG pO2 ABG HCO3 ABG Base Excess ABG Hemoglobin ABG Oxyhemoglobin ABG Sodium ABG Potassium ABG Chloride ABG Glucose Oxyhemoglobin Carboxyhemoglobin Sodium 136 L Potassium Chloride 91.6 L Carbon Dioxide BUN 52 H Creatinine 5.5 H D Glucose 176 H POC Glucose 185 H 196 H Calcium 7.7 L Phosphorus Magnesium Ferritin AST Alkaline Phosphatase Lactate Dehydrogenase Troponin T Total Protein Albumin HDL Cholesterol Arterial Blood Glucose Arterial Blood Ionized Calcium Crossmatch 09/02/20 09/02/20 09/02/20 11:06 13:03 17:22 WBC RBC Hgb Hct MCV MCH RDW Plt Count Lymph % (Auto) [place] % (Auto) Lymph # (Auto) Seg Neutrophils % Seg Neuts % (Manual) Lymphocytes % (Manual) Nucleated RBC % Seg Neutrophils # Seg Neutrophils # Man Lymphocytes # (Manual) D-Dimer ABG pH POC ABG pCO2 POC ABG pO2 ABG HCO3 ABG Base Excess ABG Hemoglobin ABG Oxyhemoglobin ABG Sodium ABG Potassium ABG Chloride ABG Glucose Oxyhemoglobin Carboxyhemoglobin Sodium Potassium Chloride Carbon Dioxide BUN Creatinine Glucose POC Glucose 224 H 252 H 196 H Calcium Phosphorus Magnesium Ferritin AST Alkaline Phosphatase Lactate Dehydrogenase Troponin T Total Protein Albumin HDL Cholesterol Arterial Blood Glucose Arterial Blood Ionized Calcium Crossmatch 09/02/20 09/03/20 09/03/20 21:13 02:02 04:12 WBC RBC Hgb Hct MCV MCH RDW Plt Count Lymph % (Auto) [place] % (Auto) Lymph # (Auto) Seg Neutrophils % Seg Neuts % (Manual) Lymphocytes % (Manual) Nucleated RBC % Seg Neutrophils # Seg Neutrophils # Man Lymphocytes # (Manual) D-Dimer ABG pH POC ABG pCO2 POC ABG pO2 ABG HCO3 ABG Base Excess ABG Hemoglobin ABG Oxyhemoglobin ABG Sodium ABG Potassium ABG Chloride ABG Glucose Oxyhemoglobin Carboxyhemoglobin Sodium 136 L Potassium Chloride 90.3 L Carbon Dioxide BUN 79 H Creatinine 8.1 H Glucose 223 H POC Glucose 204 H 205 H Calcium 7.1 L Phosphorus Magnesium Ferritin AST Alkaline Phosphatase Lactate Dehydrogenase Troponin T Total Protein Albumin HDL Cholesterol Arterial Blood Glucose Arterial Blood Ionized Calcium Crossmatch 09/03/20 09/03/20 09/03/20 04:12 05:35 09:28 WBC RBC 2.35 L Hgb 8.3 L Hct 25.1 L MCV 107 H MCH 35 H RDW 18.5 H Plt Count 87 L Lymph % (Auto) [place] % (Auto) Lymph # (Auto) Seg Neutrophils % Seg Neuts % (Manual) Lymphocytes % (Manual) Nucleated RBC % Seg Neutrophils # Seg Neutrophils # Man Lymphocytes # (Manual) D-Dimer ABG pH POC ABG pCO2 POC ABG pO2 ABG HCO3 ABG Base Excess ABG Hemoglobin ABG Oxyhemoglobin ABG Sodium ABG Potassium ABG Chloride ABG Glucose Oxyhemoglobin Carboxyhemoglobin Sodium Potassium Chloride Carbon Dioxide BUN Creatinine Glucose POC Glucose 219 H 202 H Calcium Phosphorus Magnesium Ferritin AST Alkaline Phosphatase Lactate Dehydrogenase Troponin T Total Protein Albumin HDL Cholesterol Arterial Blood Glucose Arterial Blood Ionized Calcium Crossmatch 09/03/20 09/03/20 09/03/20 11:36 13:41 16:56 WBC RBC Hgb Hct MCV MCH RDW Plt Count Lymph % (Auto) [place] % (Auto) Lymph # (Auto) Seg Neutrophils % Seg Neuts % (Manual) Lymphocytes % (Manual) Nucleated RBC % Seg Neutrophils # Seg Neutrophils # Man Lymphocytes # (Manual) D-Dimer ABG pH POC ABG pCO2 POC ABG pO2 ABG HCO3 ABG Base Excess ABG Hemoglobin ABG Oxyhemoglobin ABG Sodium ABG Potassium ABG Chloride ABG Glucose Oxyhemoglobin Carboxyhemoglobin Sodium Potassium Chloride Carbon Dioxide BUN Creatinine Glucose POC Glucose 216 H 224 H 298 H Calcium Phosphorus Magnesium Ferritin AST Alkaline Phosphatase Lactate Dehydrogenase Troponin T Total Protein Albumin HDL Cholesterol Arterial Blood Glucose Arterial Blood Ionized Calcium Crossmatch 09/03/20 09/04/20 09/04/20 20:49 00:23 05:28 WBC RBC Hgb Hct MCV MCH RDW Plt Count Lymph % (Auto) [place] % (Auto) Lymph # (Auto) Seg Neutrophils % Seg Neuts % (Manual) Lymphocytes % (Manual) Nucleated RBC % Seg Neutrophils # Seg Neutrophils # Man Lymphocytes # (Manual) D-Dimer ABG pH POC ABG pCO2 POC ABG pO2 ABG HCO3 ABG Base Excess ABG Hemoglobin ABG Oxyhemoglobin ABG Sodium ABG Potassium ABG Chloride ABG Glucose Oxyhemoglobin Carboxyhemoglobin Sodium Potassium Chloride Carbon Dioxide BUN Creatinine Glucose POC Glucose 228 H 228 H 283 H Calcium Phosphorus Magnesium Ferritin AST Alkaline Phosphatase Lactate Dehydrogenase Troponin T Total Protein Albumin HDL Cholesterol Arterial Blood Glucose Arterial Blood Ionized Calcium Crossmatch 09/04/20 09/04/20 09/04/20 10:03 17:39 21:45 WBC RBC Hgb Hct MCV MCH RDW Plt Count Lymph % (Auto) [place] % (Auto) Lymph # (Auto) Seg Neutrophils % Seg Neuts % (Manual) Lymphocytes % (Manual) Nucleated RBC % Seg Neutrophils # Seg Neutrophils # Man Lymphocytes # (Manual) D-Dimer ABG pH POC ABG pCO2 POC ABG pO2 ABG HCO3 ABG Base Excess ABG Hemoglobin ABG Oxyhemoglobin ABG Sodium ABG Potassium ABG Chloride ABG Glucose Oxyhemoglobin Carboxyhemoglobin Sodium Potassium Chloride Carbon Dioxide BUN Creatinine Glucose POC Glucose 159 H 128 H 213 H Calcium Phosphorus Magnesium Ferritin AST Alkaline Phosphatase Lactate Dehydrogenase Troponin T Total Protein Albumin HDL Cholesterol Arterial Blood Glucose Arterial Blood Ionized Calcium Crossmatch 09/05/20 09/05/20 09/05/20 02:04 05:33 09:25 WBC RBC Hgb Hct MCV MCH RDW Plt Count Lymph % (Auto) [place] % (Auto) Lymph # (Auto) Seg Neutrophils % Seg Neuts % (Manual) Lymphocytes % (Manual) Nucleated RBC % Seg Neutrophils # Seg Neutrophils # Man Lymphocytes # (Manual) D-Dimer ABG pH POC ABG pCO2 POC ABG pO2 ABG HCO3 ABG Base Excess ABG Hemoglobin ABG Oxyhemoglobin ABG Sodium ABG Potassium ABG Chloride ABG Glucose Oxyhemoglobin Carboxyhemoglobin Sodium Potassium Chloride Carbon Dioxide BUN Creatinine Glucose POC Glucose 178 H 177 H 199 H Calcium Phosphorus Magnesium Ferritin AST Alkaline Phosphatase Lactate Dehydrogenase Troponin T Total Protein Albumin HDL Cholesterol Arterial Blood Glucose Arterial Blood Ionized Calcium Crossmatch 09/05/20 09/05/20 09/05/20 13:26 16:47 21:40 WBC RBC Hgb Hct MCV MCH RDW Plt Count Lymph % (Auto) [place] % (Auto) Lymph # (Auto) Seg Neutrophils % Seg Neuts % (Manual) Lymphocytes % (Manual) Nucleated RBC % Seg Neutrophils # Seg Neutrophils # Man Lymphocytes # (Manual) D-Dimer ABG pH POC ABG pCO2 POC ABG pO2 ABG HCO3 ABG Base Excess ABG Hemoglobin ABG Oxyhemoglobin ABG Sodium ABG Potassium ABG Chloride ABG Glucose Oxyhemoglobin Carboxyhemoglobin Sodium Potassium Chloride Carbon Dioxide BUN Creatinine Glucose POC Glucose 136 H 141 H 131 H Calcium Phosphorus Magnesium Ferritin AST Alkaline Phosphatase Lactate Dehydrogenase Troponin T Total Protein Albumin HDL Cholesterol Arterial Blood Glucose Arterial Blood Ionized Calcium Crossmatch 09/06/20 09/06/20 09/06/20 03:16 05:20 07:39 WBC RBC Hgb Hct MCV MCH RDW Plt Count Lymph % (Auto) [place] % (Auto) Lymph # (Auto) Seg Neutrophils % Seg Neuts % (Manual) Lymphocytes % (Manual) Nucleated RBC % Seg Neutrophils # Seg Neutrophils # Man Lymphocytes # (Manual) D-Dimer ABG pH POC ABG pCO2 POC ABG pO2 66.8 L ABG HCO3 ABG Base Excess ABG Hemoglobin 9.3 L ABG Oxyhemoglobin 89.9 L ABG Sodium 130.5 L ABG Potassium 5.1 H ABG Chloride 91.0 L ABG Glucose 224 H Oxyhemoglobin Carboxyhemoglobin Sodium Potassium Chloride Carbon Dioxide BUN Creatinine Glucose POC Glucose 112 H 163 H Calcium Phosphorus Magnesium Ferritin AST Alkaline Phosphatase Lactate Dehydrogenase Troponin T Total Protein Albumin HDL Cholesterol Arterial Blood Glucose 224 H Arterial Blood Ionized Calcium 3.8 L Crossmatch 06/09/06/20 09/06/20 09:30 15:27 17:57 WBC RBC Hgb Hct MCV MCH RDW Plt Count Lymph % (Auto) [place] % (Auto) Lymph # (Auto) Seg Neutrophils % Seg Neuts % (Manual) Lymphocytes % (Manual) Nucleated RBC % Seg Neutrophils # Seg Neutrophils # Man Lymphocytes # (Manual) D-Dimer ABG pH POC ABG pCO2 POC ABG pO2 ABG HCO3 ABG Base Excess ABG Hemoglobin ABG Oxyhemoglobin ABG Sodium ABG Potassium ABG Chloride ABG Glucose Oxyhemoglobin Carboxyhemoglobin Sodium Potassium Chloride Carbon Dioxide BUN Creatinine Glucose POC Glucose 236 H 166 H 130 H Calcium Phosphorus Magnesium Ferritin AST Alkaline Phosphatase Lactate Dehydrogenase Troponin T Total Protein Albumin HDL Cholesterol Arterial Blood Glucose Arterial Blood Ionized Calcium Crossmatch 09/06/20 09/07/20 09/07/20 22:21 03:28 04:00 WBC RBC Hgb Hct MCV MCH RDW Plt Count Lymph % (Auto) [place] % (Auto) Lymph # (Auto) Seg Neutrophils % Seg Neuts % (Manual) Lymphocytes % (Manual) Nucleated RBC % Seg Neutrophils # Seg Neutrophils # Man Lymphocytes # (Manual) D-Dimer ABG pH POC ABG pCO2 POC ABG pO2 62.2 L ABG HCO3 ABG Base Excess ABG Hemoglobin 8.0 L ABG Oxyhemoglobin 87.8 L ABG Sodium 127.3 L ABG Potassium 5.7 H ABG Chloride 89.0 L ABG Glucose 232 H Oxyhemoglobin Carboxyhemoglobin Sodium Potassium Chloride Carbon Dioxide BUN Creatinine Glucose POC Glucose 154 H 183 H Calcium Phosphorus Magnesium Ferritin AST Alkaline Phosphatase Lactate Dehydrogenase Troponin T Total Protein Albumin HDL Cholesterol Arterial Blood Glucose 232 H Arterial Blood Ionized Calcium 3.7 L Crossmatch 09/07/20 09/07/20 09/07/20 04:12 04:12 05:45 WBC RBC 2.32 L Hgb 7.9 L Hct 24.0 L MCV 104 H MCH 34 H RDW 17.7 H Plt Count 116 L Lymph % (Auto) 8.5 L [place] % (Auto) 9.0 H Lymph # (Auto) 0.7 L Seg Neutrophils % 81.3 H Seg Neuts % (Manual) Lymphocytes % (Manual) Nucleated RBC % Seg Neutrophils # Seg Neutrophils # Man Lymphocytes # (Manual) D-Dimer ABG pH POC ABG pCO2 POC ABG pO2 ABG HCO3 ABG Base Excess ABG Hemoglobin ABG Oxyhemoglobin ABG Sodium ABG Potassium ABG Chloride ABG Glucose Oxyhemoglobin Carboxyhemoglobin Sodium 133 L Potassium 6.2 H* D Chloride 85.8 L Carbon Dioxide BUN 132 H Creatinine 9.8 H Glucose 227 H POC Glucose 223 H Calcium 7.9 L Phosphorus Magnesium Ferritin AST Alkaline Phosphatase Lactate Dehydrogenase Troponin T Total Protein Albumin HDL Cholesterol Arterial Blood Glucose Arterial Blood Ionized Calcium Crossmatch 09/07/20 09/07/20 09/07/20 07:49 11:48 18:13 WBC RBC Hgb Hct MCV MCH RDW Plt Count Lymph % (Auto) [place] % (Auto) Lymph # (Auto) Seg Neutrophils % Seg Neuts % (Manual) Lymphocytes % (Manual) Nucleated RBC % Seg Neutrophils # Seg Neutrophils # Man Lymphocytes # (Manual) D-Dimer ABG pH POC ABG pCO2 POC ABG pO2 ABG HCO3 ABG Base Excess ABG Hemoglobin ABG Oxyhemoglobin ABG Sodium ABG Potassium ABG Chloride ABG Glucose Oxyhemoglobin Carboxyhemoglobin Sodium Potassium Chloride Carbon Dioxide BUN Creatinine Glucose POC Glucose 281 H 169 H 162 H Calcium Phosphorus Magnesium Ferritin AST Alkaline Phosphatase Lactate Dehydrogenase Troponin T Total Protein Albumin HDL Cholesterol Arterial Blood Glucose Arterial Blood Ionized Calcium Crossmatch 09/07/20 09/08/20 09/08/20 20:53 01:07 05:49 WBC RBC Hgb Hct MCV MCH RDW Plt Count Lymph % (Auto) [place] % (Auto) Lymph # (Auto) Seg Neutrophils % Seg Neuts % (Manual) Lymphocytes % (Manual) Nucleated RBC % Seg Neutrophils # Seg Neutrophils # Man Lymphocytes # (Manual) D-Dimer ABG pH POC ABG pCO2 POC ABG pO2 ABG HCO3 ABG Base Excess ABG Hemoglobin ABG Oxyhemoglobin ABG Sodium ABG Potassium ABG Chloride ABG Glucose Oxyhemoglobin Carboxyhemoglobin Sodium Potassium Chloride Carbon Dioxide BUN Creatinine Glucose POC Glucose 205 H 180 H 186 H Calcium Phosphorus Magnesium Ferritin AST Alkaline Phosphatase Lactate Dehydrogenase Troponin T Total Protein Albumin HDL Cholesterol Arterial Blood Glucose Arterial Blood Ionized Calcium Crossmatch 09/08/20 09/08/20 09/08/20 11:44 13:56 17:31 WBC RBC Hgb Hct MCV MCH RDW Plt Count Lymph % (Auto) [place] % (Auto) Lymph # (Auto) Seg Neutrophils % Seg Neuts % (Manual) Lymphocytes % (Manual) Nucleated RBC % Seg Neutrophils # Seg Neutrophils # Man Lymphocytes # (Manual) D-Dimer ABG pH POC ABG pCO2 POC ABG pO2 150.6 H ABG HCO3 ABG Base Excess ABG Hemoglobin 6.6 L ABG Oxyhemoglobin ABG Sodium 133.2 L ABG Potassium ABG Chloride 90.0 L ABG Glucose 173 H Oxyhemoglobin Carboxyhemoglobin Sodium Potassium Chloride Carbon Dioxide BUN Creatinine Glucose POC Glucose 164 H 160 H Calcium Phosphorus Magnesium Ferritin AST Alkaline Phosphatase Lactate Dehydrogenase Troponin T Total Protein Albumin HDL Cholesterol Arterial Blood Glucose 173 H Arterial Blood Ionized Calcium 3.5 L Crossmatch 09/08/20 09/09/20 09/09/20 19:19 02:39 03:43 WBC RBC Hgb Hct MCV MCH RDW Plt Count Lymph % (Auto) [place] % (Auto) Lymph # (Auto) Seg Neutrophils % Seg Neuts % (Manual) Lymphocytes % (Manual) Nucleated RBC % Seg Neutrophils # Seg Neutrophils # Man Lymphocytes # (Manual) D-Dimer ABG pH POC ABG pCO2 POC ABG pO2 58.6 L ABG HCO3 ABG Base Excess ABG Hemoglobin 6.8 L ABG Oxyhemoglobin 84.7 L ABG Sodium 131.6 L ABG Potassium ABG Chloride 88.0 L ABG Glucose 214 H Oxyhemoglobin Carboxyhemoglobin Sodium Potassium Chloride Carbon Dioxide BUN Creatinine Glucose POC Glucose 160 H 201 H Calcium Phosphorus Magnesium Ferritin AST Alkaline Phosphatase Lactate Dehydrogenase Troponin T Total Protein Albumin HDL Cholesterol Arterial Blood Glucose 214 H Arterial Blood Ionized Calcium 3.3 L Crossmatch 09/09/20 09/09/20 09/09/20 05:55 09:52 14:20 WBC RBC Hgb Hct MCV MCH RDW Plt Count Lymph % (Auto) [place] % (Auto) Lymph # (Auto) Seg Neutrophils % Seg Neuts % (Manual) Lymphocytes % (Manual) Nucleated RBC % Seg Neutrophils # Seg Neutrophils # Man Lymphocytes # (Manual) D-Dimer ABG pH POC ABG pCO2 POC ABG pO2 ABG HCO3 ABG Base Excess ABG Hemoglobin ABG Oxyhemoglobin ABG Sodium ABG Potassium ABG Chloride ABG Glucose Oxyhemoglobin Carboxyhemoglobin Sodium Potassium Chloride Carbon Dioxide BUN Creatinine Glucose POC Glucose 190 H 159 H 161 H Calcium Phosphorus Magnesium Ferritin AST Alkaline Phosphatase Lactate Dehydrogenase Troponin T Total Protein Albumin HDL Cholesterol Arterial Blood Glucose Arterial Blood Ionized Calcium Crossmatch 09/09/20 09/10/20 09/10/20 17:45 02:10 03:07 WBC RBC Hgb Hct MCV MCH RDW Plt Count Lymph % (Auto) [place] % (Auto) Lymph # (Auto) Seg Neutrophils % Seg Neuts % (Manual) Lymphocytes % (Manual) Nucleated RBC % Seg Neutrophils # Seg Neutrophils # Man Lymphocytes # (Manual) D-Dimer ABG pH POC ABG pCO2 POC ABG pO2 63.5 L ABG HCO3 ABG Base Excess ABG Hemoglobin 7.0 L ABG Oxyhemoglobin 88.3 L ABG Sodium 130.1 L ABG Potassium 5.0 H ABG Chloride 87.0 L ABG Glucose Oxyhemoglobin Carboxyhemoglobin Sodium Potassium Chloride Carbon Dioxide BUN Creatinine Glucose POC Glucose 140 H 116 H Calcium Phosphorus Magnesium Ferritin AST Alkaline Phosphatase Lactate Dehydrogenase Troponin T Total Protein Albumin HDL Cholesterol Arterial Blood Glucose Arterial Blood Ionized Calcium 3.2 L Crossmatch 09/10/20 09/10/20 09/10/20 06:34 07:15 07:15 WBC RBC 1.88 L Hgb 6.5 L Hct 19.1 L* MCV 102 H MCH 34 H RDW 17.5 H Plt Count 121 L Lymph % (Auto) [place] % (Auto) Lymph # (Auto) Seg Neutrophils % Seg Neuts % (Manual) 93.0 H Lymphocytes % (Manual) 4.0 L Nucleated RBC % Seg Neutrophils # Seg Neutrophils # Man 8.8 H Lymphocytes # (Manual) 0.4 L D-Dimer ABG pH POC ABG pCO2 POC ABG pO2 ABG HCO3 ABG Base Excess ABG Hemoglobin ABG Oxyhemoglobin ABG Sodium ABG Potassium ABG Chloride ABG Glucose Oxyhemoglobin Carboxyhemoglobin Sodium Potassium 5.2 H Chloride 84.4 L Carbon Dioxide BUN 189 H Creatinine 12.4 H Glucose 118 H POC Glucose 125 H Calcium 6.8 L Phosphorus Magnesium Ferritin AST Alkaline Phosphatase Lactate Dehydrogenase Troponin T Total Protein Albumin HDL Cholesterol Arterial Blood Glucose Arterial Blood Ionized Calcium Crossmatch 09/10/20 09/10/20 08:35 09:05 WBC RBC Hgb Hct MCV MCH RDW Plt Count Lymph % (Auto) [place] % (Auto) Lymph # (Auto) Seg Neutrophils % Seg Neuts % (Manual) Lymphocytes % (Manual) Nucleated RBC % Seg Neutrophils # Seg Neutrophils # Man Lymphocytes # (Manual) D-Dimer ABG pH POC ABG pCO2 POC ABG pO2 ABG HCO3 ABG Base Excess ABG Hemoglobin ABG Oxyhemoglobin ABG Sodium ABG Potassium ABG Chloride ABG Glucose Oxyhemoglobin Carboxyhemoglobin Sodium Potassium Chloride Carbon Dioxide BUN Creatinine Glucose POC Glucose 107 H Calcium Phosphorus Magnesium Ferritin AST Alkaline Phosphatase Lactate Dehydrogenase Troponin T Total Protein Albumin HDL Cholesterol Arterial Blood Glucose Arterial Blood Ionized Calcium Crossmatch See Detail Chest x-ray: other (none today) Allied health notes reviewed: nursing
--- NOTE | 2020-09-10 12:38 | Progress Note ---
Assessment and Plan - Patient Problems (1) Anoxic encephalopathy Current Visit: Yes Status: Acute Plan to address problem: In the setting of cardiopulmonary arrest. No changes in her neurological status, which remains poor at this time. Pending hospice evaluation/transition. she does apparently pending a trach and PEG placement at this time. (2) Cardiac arrest Current Visit: Yes Status: Acute Plan to address problem: s/p cardiac arrest suffered at home, with unfortunately severe anoxic encephalopathy/brain injury suffered without improvement in neurologic status. She is off all pressors and sedation at this time. Cardiology input reviewed and appreciated. Overall prognosis remains poor/grim at this point. (3) End-stage renal disease on hemodialysis Current Visit: Yes Status: Chronic Plan to address problem: Patient was placed on MWF HD schedule. At this point, given her overall poor prognosis, and notes from primary indicating likely transition to hospice, however she has not been transitioned yet at this time. I did have discussion with the patient's daughter and she reiterates that this ultimately will probably be the course of action. he was last dialyzed over a week ago and labs are notable for hyperkalemia this morning along with worsening anemia requiring 2 units of PRBCs. As she is being planned for our trach and PEG placement I will go ahead and order one treatment of hemodialysis OS to stabilize her serum potassium levels. (4) Hyperkalemia Current Visit: Yes Status: Acute Plan to address problem: we will set her up with one hemodialysis treatment today. (5) Multifocal pneumonia Current Visit: Yes Status: Acute Plan to address problem: Please ensure that antibiotics are dosed appropriately for her decreased renal function. (6) Pulmonary edema Current Visit: Yes Status: Acute Plan to address problem: Will monitor closely. She remains intubated, without any acute changes in vent settings at this time. Subjective Date of service: 09/10/20 Principal diagnosis: Cardiac arrest; Ac. hypoxemic resp failure; PNA; ESRD; NSTEMI; Hyperkalemia Interval history: patient to receive 2 units of blood today. I had a lengthy conversation with patient's daughter. Plan is ultimately to transition to hospice. However she is pending a trach and PEG at this time. Labs reviewed and she does have evidence of hyperkalemia. This will have to be corrected prior to planned procedures. In that setting I will set her up for one more dialysis treatment today. Objective - Vital Signs Vital signs: Vital Signs - 12hr 09/10/20 09/10/20 09/10/20 01:00 01:30 02:00 Temperature Pulse Rate 61 60 61 Pulse Rate [ From Monitor] Respiratory 13 15 14 Rate Blood Pressure 131/43 126/42 133/46 O2 Sat by Pulse 100 100 100 Oximetry 09/10/20 09/10/20 09/10/20 02:30 03:00 03:18 Temperature 97.7 F Pulse Rate 63 62 Pulse Rate [ From Monitor] Respiratory 21 12 Rate Blood Pressure 133/46 134/47 O2 Sat by Pulse 98 100 Oximetry 09/10/20 09/10/20 09/10/20 03:30 04:00 04:30 Temperature Pulse Rate 63 63 63 Pulse Rate [ 63 From Monitor] Respiratory 20 20 18 Rate Blood Pressure 133/47 136/47 141/48 O2 Sat by Pulse 100 99 100 Oximetry 09/10/20 09/10/20 09/10/20 05:00 05:30 06:00 Temperature Pulse Rate 63 67 60 Pulse Rate [ From Monitor] Respiratory 17 12 13 Rate Blood Pressure 137/46 150/45 134/51 O2 Sat by Pulse 100 100 100 Oximetry 09/10/20 09/10/20 09/10/20 06:27 06:30 07:00 Temperature Pulse Rate 60 59 L 58 L Pulse Rate [ From Monitor] Respiratory 16 15 Rate Blood Pressure 135/51 124/51 124/51 O2 Sat by Pulse 100 100 Oximetry 09/10/20 09/10/20 09/10/20 07:20 07:30 08:00 Temperature Pulse Rate 61 62 59 L Pulse Rate [ 60 From Monitor] Respiratory 17 20 Rate Blood Pressure 124/49 133/53 124/49 O2 Sat by Pulse 97 97 97 Oximetry 09/10/20 09/10/20 09/10/20 08:30 08:55 09:00 Temperature Pulse Rate 58 L 58 L 59 L Pulse Rate [ From Monitor] Respiratory 19 19 19 Rate Blood Pressure 117/48 117/51 117/51 O2 Sat by Pulse 98 98 99 Oximetry 09/10/20 09/10/20 09/10/20 09:30 10:00 10:11 Temperature Pulse Rate 58 L 58 L 61 Pulse Rate [ From Monitor] Respiratory 17 16 21 Rate Blood Pressure 113/46 112/41 112/41 O2 Sat by Pulse 100 100 100 Oximetry 09/10/20 09/10/20 09/10/20 10:21 10:30 10:41 Temperature Pulse Rate 56 L 57 L 58 L Pulse Rate [ From Monitor] Respiratory 16 16 19 Rate Blood Pressure 112/41 114/45 114/45 O2 Sat by Pulse 100 100 100 Oximetry 09/10/20 09/10/20 09/10/20 10:57 11:12 11:29 Temperature 97.4 F L 97.4 F L Pulse Rate 58 L 57 L 58 L Pulse Rate [ From Monitor] Respiratory 19 20 19 Rate Blood Pressure 124/45 122/46 121/45 O2 Sat by Pulse 100 100 100 Oximetry - General Appearance General appearance: chronically ill, frail EENT: ATNC Neck: no JVD Respiratory: Present: Decreased Breath Sounds Cardiology: regular Gastrointestinal: normal Integumentary: no rash Musculoskeletal: deferred - Lab 09/10/20 07:15 09/10/20 07:15 Most recent lab results ABG pH 7.381 (7.320-7.450) 09/10/20 03:07 ABG pCO2 38.0 mm Hg 09/02/20 03:40 ABG pO2 83.1 mm Hg (80.0-90.0) 09/02/20 03:40 ABG HCO3 29.4 mmol/L (20.0-26.0) H 09/02/20 03:40 ABG O2 Saturation 89.5 (0-100) 09/10/20 03:07 Calcium 6.8 mg/dL (8.4-10.2) L 09/10/20 07:15 Phosphorus 11.50 mg/dL (2.5-4.5) H 08/30/20 00:15 Magnesium 3.80 mg/dL (1.7-2.3) H 08/30/20 00:15 - Allied health notes Allied health notes reviewed: nursing Medications & Allergies - Medications Allergies/Adverse Reactions: Allergies No Known Allergies Allergy (Verified 08/30/20 22:43) Home Medications: Home Medications Medication Instructions Recorded Confirmed Last Taken Type Acyclovir [Zovirax Tab] 400 mg PO BID 08/30/20 08/30/20 Unknown History Amlodipine Besylate 10 mg PO DAILY 08/30/20 08/30/20 Unknown History Furosemide [Lasix] 40 mg PO DAILY 08/30/20 08/30/20 Unknown History Gabapentin [Neurontin] 600 mg PO BID 08/30/20 08/30/20 Unknown History Imdur ER 30 mg PO DAILY 08/30/20 08/30/20 Unknown History Losartan Potassium 50 mg PO BID 08/30/20 08/30/20 Unknown History Losartan/Hydrochlorothiazide 1 each PO DAILY 08/30/20 08/30/20 Unknown History [Losartan-Hctz 100-25 mg Tab] Metoprolol Tartrate 25 mg PO BID 08/30/20 08/30/20 Unknown History Mirtazapine [Remeron] 30 mg PO HS 08/30/20 08/30/20 Unknown History Sevelamer Carbonate [Renvela] 800 mg PO TIDWM 08/30/20 08/30/20 Unknown History Vit B Complx C/Folic Acid/Zinc 0.8 mg PO DAILY 08/30/20 08/30/20 Unknown History [Dialyvite 800-Zinc 15 Tab] Zolpidem Tartrate [Edluar SUBL] 5 mg PO QHS PRN 08/30/20 08/30/20 Unknown History calcitrioL 0.5 mcg PO DAILY 08/30/20 08/30/20 Unknown History Active Medications: Generic Name Dose Route Start Last Admin Trade Name Freq PRN Reason Stop Dose Admin Acetaminophen 650 mg 09/01/20 00:27 09/04/20 04:34 Acetaminophen 325 Mg/10.15 Ml Oral Liqd Unit Dose FEEDTUBE 650 mg Q6H PRN Administration Non Cardiac Pain or Temp>100.5 Amlodipine Besylate 10 mg 09/03/20 11:00 09/10/20 09:06 Amlodipine 10 Mg Tab PO Not Given QDAY ANIYAH Lipase/Protease/Amylase 1 each 08/30/20 14:27 Lipase 10,500/Protease 25,000/Amylase 43,750 (Units) Dr Duran FEEDTUBE PRN PRN For Clogged Feeding Tube Dextrose 50 ml 08/30/20 19:48 09/10/20 05:10 Dextrose 50% In Water (25gm) 50 Ml Syringe IV 50 ml Q30MIN PRN Administration Hypoglycemia Protocol Famotidine 20 mg 09/02/20 10:00 09/10/20 09:06 Famotidine 20 Mg Tab PO 20 mg DAILY ANIYAH Administration Heparin Sodium (Porcine) 5,000 unit 08/30/20 06:00 09/10/20 06:24 Heparin 5,000 Unit/1 Ml Vial SUB-Q Not Given Q8HR ANIYAH Hydralazine HCl 10 mg 08/31/20 18:14 09/04/20 04:34 Hydralazine 20 Mg/1 Ml Inj IV 10 mg Q4HR PRN Administration Hypertension Hydrophilic Ointment 1 applic 08/30/20 14:05 Lip Therapy Vaseline TP Q2HR PRN Dry Lips Sodium Chloride 100 mls @ 999 mls/hr 08/30/20 09:00 Nacl 0.9% IV ARMIDA PRN Hypotension Dextrose/Sodium Chloride 1,000 mls @ 15 mls/hr 09/10/20 06:00 09/10/20 06:38 D5/0.45ns IV 15 mls/hr DIRECT ANIYAH Administration Sodium Chloride 500 mls @ 0 mls/hr 09/10/20 10:00 Nacl 0.9% 500 Ml IV 09/10/20 18:00 ONCE ANIYAH As Directed Insulin Glargine 30 units 09/03/20 10:00 09/10/20 09:02 Insulin Glargine 100 Units/Ml SUB-Q Not Given DAILY [facility] Insulin Human Lispro 5 unit 09/04/20 08:00 09/10/20 09:01 Insulin Lispro 100 Unit/Ml SUB-Q Not Given TID [facility] Insulin Human Regular 0 units 09/01/20 10:00 09/10/20 09:01 Insulin Regular, Human 100 Units/1 Ml SUB-Q Not Given Q4HR [facility] Protocol Levetiracetam 750 mg 09/04/20 22:00 09/10/20 09:05 Levetiracetam 500 Mg/5 Ml Oral Liqd PO 750 mg BID ANIYAH Administration Magnesium Hydroxide 30 ml 08/30/20 04:41 Magnesium Hydroxide (Mom) Oral Liqd Udc PO Q4H PRN Constipation Metoprolol Tartrate 50 mg 09/03/20 11:00 09/10/20 09:06 Metoprolol Tartrate 50 Mg Tab PO Not Given BID ANIYAH Midodrine 10 mg 09/09/20 14:00 09/10/20 09:00 Midodrine 5 Mg Tab PO 10 mg TID ANIYAH Administration Multi-Ingred Cream/Lotion/Oil/Oint 1 applic 08/30/20 14:05 09/09/20 09:00 Mineral Oil/Petrolatum, White Ophth Oint 3.5 Gm OU 1 applic Q4HR PRN Administration Dry Eye(s) Nitroglycerin 0.4 mg 09/04/20 06:00 09/10/20 06:27 Nitroglycerin 0.4 Mg Patch 24hr TD 0.4 mg QDAY@0600 ANIYAH Administration Ondansetron HCl 4 mg 08/30/20 04:41 Ondansetron 4 Mg/2 Ml Inj IV Q8H PRN Nausea And Vomiting Senna/Docusate Sodium 1 tab 08/30/20 22:00 09/10/20 09:05 Sennosides/Docusate Sodium 8.6/50 Mg Tab FEEDTUBE 1 tab BID ANIYAH Administration Simple Syrup 15 ml 08/30/20 14:27 Simple Syrup 15 Ml FEEDTUBE PRN PRN Hypoglycemia Simple Syrup 30 ml 08/30/20 14:27 Simple Syrup 15 Ml FEEDTUBE PRN PRN Hypoglycemia Sodium Bicarbonate 325 mg 08/30/20 14:27 09/05/20 08:26 Sodium Bicarbonate 325 Mg Tab FEEDTUBE 325 mg PRN PRN Administration For Clogged Feeding Tube Sodium Chloride 10 ml 08/30/20 10:00 09/10/20 09:01 Sodium Chloride 0.9% 10 Ml Flush Syringe IV 10 ml BID ANIYAH Administration Sodium Chloride 10 ml 08/30/20 04:41 Sodium Chloride 0.9% 10 Ml Flush Syringe IV PRN PRN LINE FLUSH
--- NOTE | 2020-09-10 12:57 | Progress Note ---
Assessment and Plan - Patient Problems (1) Anoxic encephalopathy Current Visit: Yes Status: Acute Plan to address problem: 1) Again, called pt's daughter re plan for pt. Daughter refuses to consent for trach & PEG. Subjective Date of service: 09/10/20 Patient Reports: Positive: no new complaints Objective Vital Signs - 12hr 09/10/20 09/10/20 09/10/20 01:00 01:30 02:00 Temperature Pulse Rate 61 60 61 Pulse Rate [ From Monitor] Respiratory 13 15 14 Rate Blood Pressure 131/43 126/42 133/46 O2 Sat by Pulse 100 100 100 Oximetry 09/10/20 09/10/20 09/10/20 02:30 03:00 03:18 Temperature 97.7 F Pulse Rate 63 62 Pulse Rate [ From Monitor] Respiratory 21 12 Rate Blood Pressure 133/46 134/47 O2 Sat by Pulse 98 100 Oximetry 09/10/20 09/10/20 09/10/20 03:30 04:00 04:30 Temperature Pulse Rate 63 63 63 Pulse Rate [ 63 From Monitor] Respiratory 20 20 18 Rate Blood Pressure 133/47 136/47 141/48 O2 Sat by Pulse 100 99 100 Oximetry 09/10/20 09/10/20 09/10/20 05:00 05:30 06:00 Temperature Pulse Rate 63 67 60 Pulse Rate [ From Monitor] Respiratory 17 12 13 Rate Blood Pressure 137/46 150/45 134/51 O2 Sat by Pulse 100 100 100 Oximetry 09/10/20 09/10/20 09/10/20 06:27 06:30 07:00 Temperature Pulse Rate 60 59 L 58 L Pulse Rate [ From Monitor] Respiratory 16 15 Rate Blood Pressure 135/51 124/51 124/51 O2 Sat by Pulse 100 100 Oximetry 09/10/20 09/10/20 09/10/20 07:20 07:30 08:00 Temperature Pulse Rate 61 62 59 L Pulse Rate [ 60 From Monitor] Respiratory 17 20 Rate Blood Pressure 124/49 133/53 124/49 O2 Sat by Pulse 97 97 97 Oximetry 09/10/20 09/10/20 09/10/20 08:30 08:55 09:00 Temperature Pulse Rate 58 L 58 L 59 L Pulse Rate [ From Monitor] Respiratory 19 19 19 Rate Blood Pressure 117/48 117/51 117/51 O2 Sat by Pulse 98 98 99 Oximetry 09/10/20 09/10/20 09/10/20 09:30 10:00 10:11 Temperature Pulse Rate 58 L 58 L 61 Pulse Rate [ From Monitor] Respiratory 17 16 21 Rate Blood Pressure 113/46 112/41 112/41 O2 Sat by Pulse 100 100 100 Oximetry 09/10/20 09/10/20 09/10/20 10:21 10:30 10:41 Temperature Pulse Rate 56 L 57 L 58 L Pulse Rate [ From Monitor] Respiratory 16 16 19 Rate Blood Pressure 112/41 114/45 114/45 O2 Sat by Pulse 100 100 100 Oximetry 09/10/20 09/10/20 09/10/20 10:57 11:12 11:29 Temperature 97.4 F L 97.4 F L Pulse Rate 58 L 57 L 58 L Pulse Rate [ From Monitor] Respiratory 19 20 19 Rate Blood Pressure 124/45 122/46 121/45 O2 Sat by Pulse 100 100 100 Oximetry 09/10/20 12:00 Temperature 97.5 F L Pulse Rate Pulse Rate [ From Monitor] Respiratory Rate Blood Pressure O2 Sat by Pulse Oximetry - Labs 09/10/20 07:15 09/10/20 07:15 Diabetes panel 09/10/20 Range/Units 07:15 Sodium 137 (137-145) mmol/L Potassium 5.2 H (3.6-5.0) mmol/L Chloride 84.4 L (98-107) mmol/L Carbon Dioxide 23 (22-30) mmol/L BUN 189 H (7-17) mg/dL Creatinine 12.4 H (0.6-1.2) mg/dL Glucose 118 H (65-100) mg/dL Calcium 6.8 L (8.4-10.2) mg/dL Calcium panel 09/10/20 Range/Units 07:15 Calcium 6.8 L (8.4-10.2) mg/dL Pituitary panel 09/10/20 Range/Units 07:15 Sodium 137 (137-145) mmol/L Potassium 5.2 H (3.6-5.0) mmol/L Chloride 84.4 L (98-107) mmol/L Carbon Dioxide 23 (22-30) mmol/L BUN 189 H (7-17) mg/dL Creatinine 12.4 H (0.6-1.2) mg/dL Glucose 118 H (65-100) mg/dL Calcium 6.8 L (8.4-10.2) mg/dL Adrenal panel 09/10/20 Range/Units 07:15 Sodium 137 (137-145) mmol/L Potassium 5.2 H (3.6-5.0) mmol/L Chloride 84.4 L (98-107) mmol/L Carbon Dioxide 23 (22-30) mmol/L BUN 189 H (7-17) mg/dL Creatinine 12.4 H (0.6-1.2) mg/dL Glucose 118 H (65-100) mg/dL Calcium 6.8 L (8.4-10.2) mg/dL
[2020-09-10] MEDS ORDERED: SODIUM CHLORIDE 0.9% 100 ML IV PRN ×3 (13:00)
[2020-09-11] MEDS: HEPARIN 5,000 UNIT/1 ML VIAL SUB-Q SCH ×3 (05:56→23:28)
[2020-09-11] MEDS: NITROGLYCERIN 0.4 MG PATCH 24HR TD SCH (05:56)
[2020-09-11] MEDS: INSULIN REGULAR, HUMAN 100 UNITS/1 ML SUB-Q SCH ×6 (06:00→23:28)
[2020-09-11] MEDS: INSULIN LISPRO 100 UNIT/ML SUB-Q SCH ×3 (07:50→20:00)
[2020-09-11] MEDS: MIDODRINE 5 MG TAB PO SCH ×2 (08:57→15:03)
[2020-09-11] MEDS: SENNOSIDES/DOCUSATE SODIUM 8.6/50 MG TAB FEEDTUBE SCH ×2 (09:00→23:30)
[2020-09-11] MEDS: levETIRAcetam 500 MG/5 ML ORAL LIQD PO SCH ×2 (09:01→23:31)
[2020-09-11] MEDS: METOPROLOL TARTRATE 50 MG TAB PO SCH ×2 (09:01→23:30)
[2020-09-11] MEDS: INSULIN GLARGINE 100 UNITS/ML SUB-Q SCH (09:02)
[2020-09-11] MEDS: amLODIPine 10 MG TAB PO SCH (09:02)
[2020-09-11] MEDS: FAMOTIDINE 20 MG TAB PO SCH (09:08)
--- NOTE | 2020-09-11 11:20 | Progress Note ---
Assessment and Plan - Patient Problems (1) Anoxic encephalopathy Current Visit: Yes Status: Acute Plan to address problem: Anoxic encephalopathy. No significant improvement so far. Patient's family now agreeing to hospice. Agree with transfer once arrangements completed. Poor prognosis (2) Hyperkalemia Current Visit: Yes Status: Acute Plan to address problem: Emergent dialysis was done for hyperkalemia. Potassium is back to normal. No further lab draws since patient going to hospice. (3) Cardiac arrest Current Visit: Yes Status: Acute Plan to address problem: Etiology uncertain. Patient with anoxic encephalopathy. Family now agreeing to transfer to hospice. Prognosis is poor (4) End-stage renal disease on hemodialysis Current Visit: Yes Status: Chronic Plan to address problem: No more dialysis since patient is being transferred to hospice. (5) Hypertensive urgency Current Visit: Yes Status: Acute Plan to address problem: Blood pressure was elevated on presentation but has improved. Follow-up blood pressure Subjective Date of service: 09/11/20 Principal diagnosis: Cardiac arrest; Ac. hypoxemic resp failure; PNA; ESRD; NSTEMI; Hyperkalemia Interval history: Patient seen lying in bed in the ICU. Condition is about the same. She is not on vasopressors. Family is agreeing to hospice and arrangements being made for transfer Objective - Exam Narrative Exam: Middle-aged -[place] female lying in bed in ICU intubated on ventilator HEENT: NCAT, moving her eyes not purposefully, Neck: Supple, no venous distention CVS: S1S2 RRR with no murmur, rub or gallop Chest: Clear to auscultation Abdomen: Protuberant, soft to firm, nontender, no organomegaly, bowel sounds are present Extremities: No edema Genitourinary deferred Skin warm and dry no rash Neuro: Eyes open, moving her eyes nonpurposefully, not following commands - Vital Signs Vital signs: Vital Signs - 12hr 09/10/20 09/11/20 09/11/20 23:30 00:00 00:06 Temperature Pulse Rate 52 L 54 L 55 L Pulse Rate [ 56 L From Monitor] Respiratory 13 16 Rate Blood Pressure 123/43 122/46 126/43 O2 Sat by Pulse 100 100 100 Oximetry 09/11/20 09/11/20 09/11/20 00:30 01:00 01:30 Temperature Pulse Rate 54 L 55 L 55 L Pulse Rate [ From Monitor] Respiratory 12 12 12 Rate Blood Pressure 129/45 130/46 134/46 O2 Sat by Pulse 100 100 100 Oximetry 09/11/20 09/11/20 09/11/20 02:00 02:30 03:00 Temperature Pulse Rate 56 L 56 L 56 L Pulse Rate [ From Monitor] Respiratory 13 14 13 Rate Blood Pressure 133/45 135/46 137/45 O2 Sat by Pulse 100 100 100 Oximetry 09/11/20 09/11/20 09/11/20 03:30 03:39 04:00 Temperature 96.1 F L Pulse Rate 57 L 57 L 56 L Pulse Rate [ 56 L From Monitor] Respiratory 15 13 Rate Blood Pressure 130/47 130/47 133/46 O2 Sat by Pulse 100 100 100 Oximetry 09/11/20 09/11/20 09/11/20 04:30 05:00 05:30 Temperature Pulse Rate 57 L 57 L 57 L Pulse Rate [ From Monitor] Respiratory 14 14 14 Rate Blood Pressure 133/48 135/46 139/46 O2 Sat by Pulse 86 82 L 94 Oximetry 09/11/20 09/11/20 09/11/20 05:56 06:00 06:31 Temperature Pulse Rate 58 L 58 L 56 L Pulse Rate [ From Monitor] Respiratory 13 14 Rate Blood Pressure 143/47 142/47 159/64 O2 Sat by Pulse 93 100 Oximetry 09/11/20 09/11/20 09/11/20 07:00 07:30 08:00 Temperature 97.1 F L Pulse Rate 56 L 55 L 55 L Pulse Rate [ 53 L From Monitor] Respiratory 14 16 15 Rate Blood Pressure 151/64 138/61 139/61 O2 Sat by Pulse 100 99 99 Oximetry 09/11/20 09/11/20 09/11/20 08:30 09:00 09:30 Temperature Pulse Rate 55 L 55 L 54 L Pulse Rate [ From Monitor] Respiratory 15 15 14 Rate Blood Pressure 146/61 146/62 136/52 O2 Sat by Pulse 100 100 99 Oximetry 09/11/20 09/11/20 10:00 10:30 Temperature Pulse Rate 56 L 57 L Pulse Rate [ From Monitor] Respiratory 15 Rate Blood Pressure 149/55 152/56 O2 Sat by Pulse 100 100 Oximetry - Lab 09/10/20 07:15 09/10/20 07:15 Most recent lab results ABG pH 7.381 (7.320-7.450) 09/10/20 03:07 ABG pCO2 38.0 mm Hg 09/02/20 03:40 ABG pO2 83.1 mm Hg (80.0-90.0) 09/02/20 03:40 ABG HCO3 29.4 mmol/L (20.0-26.0) H 09/02/20 03:40 ABG O2 Saturation 89.5 (0-100) 09/10/20 03:07 Calcium 6.8 mg/dL (8.4-10.2) L 09/10/20 07:15 Phosphorus 11.50 mg/dL (2.5-4.5) H 08/30/20 00:15 Magnesium 3.80 mg/dL (1.7-2.3) H 08/30/20 00:15 Medications & Allergies - Medications Allergies/Adverse Reactions: Allergies No Known Allergies Allergy (Verified 08/30/20 22:43) Home Medications: Home Medications Medication Instructions Recorded Confirmed Last Taken Type Acyclovir [Zovirax Tab] 400 mg PO BID 08/30/20 08/30/20 Unknown History Amlodipine Besylate 10 mg PO DAILY 08/30/20 08/30/20 Unknown History Furosemide [Lasix] 40 mg PO DAILY 08/30/20 08/30/20 Unknown History Gabapentin [Neurontin] 600 mg PO BID 08/30/20 08/30/20 Unknown History Imdur ER 30 mg PO DAILY 08/30/20 08/30/20 Unknown History Losartan Potassium 50 mg PO BID 08/30/20 08/30/20 Unknown History Losartan/Hydrochlorothiazide 1 each PO DAILY 08/30/20 08/30/20 Unknown History [Losartan-Hctz 100-25 mg Tab] Metoprolol Tartrate 25 mg PO BID 08/30/20 08/30/20 Unknown History Mirtazapine [Remeron] 30 mg PO HS 08/30/20 08/30/20 Unknown History Sevelamer Carbonate [Renvela] 800 mg PO TIDWM 08/30/20 08/30/20 Unknown History Vit B Complx C/Folic Acid/Zinc 0.8 mg PO DAILY 08/30/20 08/30/20 Unknown History [Dialyvite 800-Zinc 15 Tab] Zolpidem Tartrate [Edluar SUBL] 5 mg PO QHS PRN 08/30/20 08/30/20 Unknown History calcitrioL 0.5 mcg PO DAILY 08/30/20 08/30/20 Unknown History Active Medications: Generic Name Dose Route Start Last Admin Trade Name Freq PRN Reason Stop Dose Admin Acetaminophen 650 mg 09/01/20 00:27 09/04/20 04:34 Acetaminophen 325 Mg/10.15 Ml Oral Liqd Unit Dose FEEDTUBE 650 mg Q6H PRN Administration Non Cardiac Pain or Temp>100.5 Amlodipine Besylate 10 mg 09/03/20 11:00 09/11/20 09:02 Amlodipine 10 Mg Tab PO Not Given QDAY ANIYAH Lipase/Protease/Amylase 1 each 08/30/20 14:27 Lipase 10,500/Protease 25,000/Amylase 43,750 (Units) Dr Duran FEEDTUBE PRN PRN For Clogged Feeding Tube Dextrose 50 ml 08/30/20 19:48 09/10/20 22:31 Dextrose 50% In Water (25gm) 50 Ml Syringe IV 50 ml Q30MIN PRN Administration Hypoglycemia Protocol Famotidine 20 mg 09/02/20 10:00 09/11/20 09:08 Famotidine 20 Mg Tab PO 20 mg DAILY ANIYAH Administration Heparin Sodium (Porcine) 5,000 unit 08/30/20 06:00 09/11/20 05:56 Heparin 5,000 Unit/1 Ml Vial SUB-Q 5,000 unit Q8HR ANIYAH Administration Hydralazine HCl 10 mg 08/31/20 18:14 09/04/20 04:34 Hydralazine 20 Mg/1 Ml Inj IV 10 mg Q4HR PRN Administration Hypertension Hydrophilic Ointment 1 applic 08/30/20 14:05 Lip Therapy Vaseline TP Q2HR PRN Dry Lips Dextrose/Sodium Chloride 1,000 mls @ 15 mls/hr 09/10/20 06:00 09/10/20 06:38 D5/0.45ns IV 15 mls/hr DIRECT ANIYAH Administration Sodium Chloride 100 mls @ 999 mls/hr 09/10/20 13:00 Nacl 0.9% IV ARMIDA PRN Hypotension Sodium Chloride 100 mls @ 999 mls/hr 09/10/20 13:00 Nacl 0.9% IV ARMIDA PRN Hypotension Insulin Glargine 30 units 09/03/20 10:00 09/11/20 09:02 Insulin Glargine 100 Units/Ml SUB-Q Not Given DAILY [facility] Insulin Human Lispro 5 unit 09/04/20 08:00 09/11/20 07:50 Insulin Lispro 100 Unit/Ml SUB-Q Not Given TID [facility] Insulin Human Regular 0 units 09/01/20 10:00 09/11/20 09:01 Insulin Regular, Human 100 Units/1 Ml SUB-Q Not Given Q4HR [facility] Protocol Levetiracetam 750 mg 09/04/20 22:00 09/11/20 09:01 Levetiracetam 500 Mg/5 Ml Oral Liqd PO 750 mg BID [facility] Administration Magnesium Hydroxide 30 ml 08/30/20 04:41 Magnesium Hydroxide (Mom) Oral Liqd Udc PO Q4H PRN Constipation Metoprolol Tartrate 50 mg 09/03/20 11:00 09/11/20 09:01 Metoprolol Tartrate 50 Mg Tab PO Not Given BID [facility] Midodrine 10 mg 09/09/20 14:00 09/11/20 08:57 Midodrine 5 Mg Tab PO 10 mg TID [facility] Administration Multi-Ingred Cream/Lotion/Oil/Oint 1 applic 08/30/20 14:05 09/09/20 09:00 Mineral Oil/Petrolatum, White Ophth Oint 3.5 Gm OU 1 applic Q4HR PRN Administration Dry Eye(s) Nitroglycerin 0.4 mg 09/04/20 06:00 09/11/20 05:56 Nitroglycerin 0.4 Mg Patch 24hr TD 0.4 mg QDAY@0600 [facility] Administration Ondansetron HCl 4 mg 08/30/20 04:41 Ondansetron 4 Mg/2 Ml Inj IV Q8H PRN Nausea And Vomiting Senna/Docusate Sodium 1 tab 08/30/20 22:00 09/11/20 09:00 Sennosides/Docusate Sodium 8.6/50 Mg Tab FEEDTUBE 1 tab BID [facility] Administration Simple Syrup 15 ml 08/30/20 14:27 Simple Syrup 15 Ml FEEDTUBE PRN PRN Hypoglycemia Simple Syrup 30 ml 08/30/20 14:27 Simple Syrup 15 Ml FEEDTUBE PRN PRN Hypoglycemia Sodium Bicarbonate 325 mg 08/30/20 14:27 09/05/20 08:26 Sodium Bicarbonate 325 Mg Tab FEEDTUBE 325 mg PRN PRN Administration For Clogged Feeding Tube Sodium Chloride 10 ml 08/30/20 10:00 09/11/20 09:02 Sodium Chloride 0.9% 10 Ml Flush Syringe IV 10 ml BID ANIYAH Administration Sodium Chloride 10 ml 08/30/20 04:41 Sodium Chloride 0.9% 10 Ml Flush Syringe IV PRN PRN LINE FLUSH
[2020-09-11] MEDS ORDERED: SODIUM BICARBONATE 325 MG TAB FEEDTUBE PRN (15:32)
--- NOTE | 2020-09-11 18:33 | Progress Note ---
Assessment and Plan Cardiac arrest with return of spontaneous circulation Acute hypoxemic respiratory failure Bilateral pneumonia, possibly aspiration Bilateral pulmonary edema End-stage renal disease, on dialysis NSTEMI Severe hyperkalemia History of multiple myeloma History of hypertension Anemia that is microcytic Elevated serum troponin (now to allow narural per next of kin) - tentatively for transfer to hospice care - continue care as below otherwise; - continue Daily SAT and SBT assessment as tolerated - continue to wean supplemental oxygen for target O2 sat's > 90% acutely - VAP bundle addressed - continue lung protective strategies - continue bronchodilators with pulmonary hygiene per RT - wean per pulmonary driven protocols otherwise - continue HD/UF for toxin and volume clearance (on hold now) - avoid nephrotoxins, renally dose all medications - continue accuchecks with glycemic control per SSI (While critically ill target blood glucose of 140-180 mg/dL; avoid hypoglycemia) - sedation prn for target RASS 0 to -1 - continue to avoid benzodiazepine's, reduce the possibility of delirium - complete AB's per ID rec's - prn analgesia per CPOT score - Maintenance of sleep-wake cycle, avoid delirium - continue enteral nutritional support at goal rate as tolerated - G.I. & VTE prophylaxis - PT/OT/ROM exercises - continue mobility protocols for pressure ulcer prophylaxis - Monitor hemodynamics closely - continue other care per attending / other consultants - discharge planning ongoing concurrently COVID SPECIFIC INTERVENTIONS - COVID PCR negative .... Re-evaluate in am & prn CONDITION: CRITICAL PROGNOSIS: GUARDED CODE STATUS: FULL CODE The high probability of a clinically significant, sudden or life-threatening deterioration of the [respiratory, cardiovascular, hematologic, renal & neurologic] system(s) required my full and direct attention, intervention and personal management. The aggregate critical care time was [35] minutes without overlap. Time includes spent on; [x] Data Review and interpretation [x] Patient assessment and monitoring of vital signs [x] Documentation [x] Medication orders and management Subjective Date of service: 09/11/20 Principal diagnosis: Cardiac arrest; Ac. hypoxemic resp failure; PNA; ESRD; NSTEMI; Hyperkalemia Interval history: Patient is seen today for: Cardiac arrest with ROSC; Acute hypoxemic respiratory failure; Aspiration Pneumonia; ESRD on dialysis; NSTEMI; Hyperkalemia Seen and examined at bedside; 24hour events reviewed; nursing and respiratory care staff consulted; no adverse overnight events reported to me; resting peacefully in bed; remains on MVS; awaiting hospice transfer; discussed with her daughter and she wants to now allow natural Objective Vital Signs - 12hr 09/11/20 09/11/20 09/11/20 06:31 07:00 07:30 Temperature 97.1 F L Pulse Rate 56 L 56 L 55 L Pulse Rate [ From Monitor] Respiratory 14 14 16 Rate Blood Pressure 159/64 151/64 138/61 O2 Sat by Pulse 100 100 99 Oximetry 09/11/20 09/11/20 09/11/20 08:00 08:30 09:00 Temperature Pulse Rate 55 L 55 L 55 L Pulse Rate [ 53 L From Monitor] Respiratory 15 15 15 Rate Blood Pressure 139/61 146/61 146/62 O2 Sat by Pulse 99 100 100 Oximetry 09/11/20 09/11/20 09/11/20 09:30 10:00 10:30 Temperature Pulse Rate 54 L 56 L 58 L Pulse Rate [ From Monitor] Respiratory 14 15 15 Rate Blood Pressure 136/52 149/55 155/57 O2 Sat by Pulse 99 100 100 Oximetry 09/11/20 09/11/20 09/11/20 11:00 11:30 12:00 Temperature 97.5 F L Pulse Rate 59 L 60 59 L Pulse Rate [ 60 From Monitor] Respiratory 13 12 14 Rate Blood Pressure 157/55 162/57 158/55 O2 Sat by Pulse 100 100 100 Oximetry 09/11/20 09/11/20 09/11/20 12:30 13:00 13:30 Temperature Pulse Rate 61 59 L 59 L Pulse Rate [ From Monitor] Respiratory 12 14 14 Rate Blood Pressure 161/54 156/53 155/54 O2 Sat by Pulse 100 100 100 Oximetry 09/11/20 09/11/20 09/11/20 14:00 14:30 15:00 Temperature Pulse Rate 61 61 64 Pulse Rate [ From Monitor] Respiratory 11 L 16 15 Rate Blood Pressure 156/57 154/55 152/56 O2 Sat by Pulse 100 96 93 Oximetry 09/11/20 09/11/20 09/11/20 15:19 15:25 15:30 Temperature 98.1 F Pulse Rate 63 61 Pulse Rate [ From Monitor] Respiratory 22 Rate Blood Pressure 154/55 156/63 O2 Sat by Pulse 95 96 Oximetry 09/11/20 09/11/20 09/11/20 16:00 16:30 17:00 Temperature 97.9 F Pulse Rate 58 L 57 L 57 L Pulse Rate [ 58 L From Monitor] Respiratory 15 14 15 Rate Blood Pressure 157/63 159/64 161/63 O2 Sat by Pulse 100 100 100 Oximetry 09/11/20 09/11/20 17:30 18:00 Temperature Pulse Rate 58 L 59 L Pulse Rate [ From Monitor] Respiratory 19 19 Rate Blood Pressure 164/63 165/67 O2 Sat by Pulse 93 97 Oximetry Constitutional: no acute distress, other (elderly female riding set rate at rest on MVS) Eyes: non-icteric ENT: oropharynx moist, other (ETT 23 cm COLLEEN) Neck: supple, no lymphadenopathy, no JVD Effort: normal Ascultation: Bilateral: rhonchi Percussion: Bilateral: not dull Cardiovascular: regular rate and rhythm, other (S1,S2) Gastrointestinal: normoactive bowel sounds, soft, non-tender, non-distended Integumentary: normal Extremities: no cyanosis, pulses normal, no ischemia or petechiae Neurologic: pupils equal and round (dilated), other (unresponsive, not obeying commands) Psychiatric: other (unable to assess re: AMS) CBC and BMP: 09/10/20 07:15 09/10/20 07:15 ABG, PT/INR, D-dimer: ABG ABG pH 7.381 (7.320-7.450) 09/10/20 03:07 POC ABG pCO2 38.3 mmHg (32.0-48.0) 09/10/20 03:07 ABG pCO2 38.0 mm Hg 09/02/20 03:40 POC ABG pO2 63.5 mmHg (83-108) L 09/10/20 03:07 ABG pO2 83.1 mm Hg (80.0-90.0) 09/02/20 03:40 POC ABG HCO3 22.2 09/10/20 03:07 ABG O2 Saturation 89.5 (0-100) 09/10/20 03:07 PT/INR, D-dimer PT 12.8 Sec. (12.2-14.9) 08/31/20 05:45 INR 0.90 (0.87-1.13) 08/31/20 05:45 D-Dimer > 45954 ng/mlDDU (0-234) H 08/30/20 03:10 Abnormal lab findings: Abnormal Labs 08/30/20 08/30/20 08/30/20 00:14 00:15 00:15 WBC RBC 2.83 L Hgb 9.8 L Hct MCV 112 H MCH 35 H RDW 19.9 H Plt Count 95 L Lymph % (Auto) [place] % (Auto) Lymph # (Auto) Seg Neutrophils % Seg Neuts % (Manual) Lymphocytes % (Manual) Nucleated RBC % 1.0 H Seg Neutrophils # Seg Neutrophils # Man Lymphocytes # (Manual) D-Dimer ABG pH 7.199 L POC ABG pCO2 49.3 H POC ABG pO2 ABG HCO3 ABG Base Excess ABG Hemoglobin 11.9 L ABG Oxyhemoglobin 93.0 L ABG Sodium ABG Potassium 6.9 H ABG Chloride ABG Glucose 158 H Oxyhemoglobin Carboxyhemoglobin 2.8 H Sodium Potassium 7.0 H* Chloride Carbon Dioxide 18 L BUN 68 H Creatinine 8.3 H Glucose 174 H POC Glucose Calcium Phosphorus Magnesium Ferritin AST 68 H Alkaline Phosphatase 414 H Lactate Dehydrogenase Troponin T 0.085 H Total Protein 5.6 L Albumin 3.4 L HDL Cholesterol 66 H Arterial Blood Glucose 158 H Arterial Blood Ionized Calcium Crossmatch 08/30/20 08/30/20 08/30/20 00:15 00:15 03:10 WBC RBC Hgb Hct MCV MCH RDW Plt Count Lymph % (Auto) [place] % (Auto) Lymph # (Auto) Seg Neutrophils % Seg Neuts % (Manual) Lymphocytes % (Manual) Nucleated RBC % Seg Neutrophils # Seg Neutrophils # Man Lymphocytes # (Manual) D-Dimer 6083.16 H > 75611 H ABG pH POC ABG pCO2 POC ABG pO2 ABG HCO3 ABG Base Excess ABG Hemoglobin ABG Oxyhemoglobin ABG Sodium ABG Potassium ABG Chloride ABG Glucose Oxyhemoglobin Carboxyhemoglobin Sodium Potassium Chloride Carbon Dioxide BUN Creatinine Glucose POC Glucose Calcium Phosphorus 11.50 H Magnesium 3.80 H Ferritin AST Alkaline Phosphatase Lactate Dehydrogenase Troponin T Total Protein Albumin HDL Cholesterol Arterial Blood Glucose Arterial Blood Ionized Calcium Crossmatch 08/30/20 08/30/20 08/30/20 03:10 03:10 04:49 WBC RBC Hgb Hct MCV MCH RDW Plt Count Lymph % (Auto) [place] % (Auto) Lymph # (Auto) Seg Neutrophils % Seg Neuts % (Manual) Lymphocytes % (Manual) Nucleated RBC % Seg Neutrophils # Seg Neutrophils # Man Lymphocytes # (Manual) D-Dimer ABG pH POC ABG pCO2 POC ABG pO2 ABG HCO3 ABG Base Excess ABG Hemoglobin 10.8 L ABG Oxyhemoglobin ABG Sodium ABG Potassium 6.7 H ABG Chloride ABG Glucose 137 H Oxyhemoglobin Carboxyhemoglobin Sodium Potassium Chloride Carbon Dioxide BUN Creatinine Glucose 126 H POC Glucose Calcium Phosphorus Magnesium Ferritin 830.0 H AST Alkaline Phosphatase Lactate Dehydrogenase 400 H Troponin T Total Protein Albumin HDL Cholesterol Arterial Blood Glucose 137 H Arterial Blood Ionized Calcium 4.5 L Crossmatch 08/30/20 08/30/20 08/30/20 07:13 15:03 15:03 WBC 17.2 H RBC 3.23 L Hgb Hct MCV 108 H MCH 34 H RDW 19.4 H Plt Count 90 L Lymph % (Auto) [place] % (Auto) Lymph # (Auto) Seg Neutrophils % Seg Neuts % (Manual) Lymphocytes % (Manual) Nucleated RBC % Seg Neutrophils # Seg Neutrophils # Man Lymphocytes # (Manual) D-Dimer ABG pH POC ABG pCO2 POC ABG pO2 ABG HCO3 ABG Base Excess ABG Hemoglobin ABG Oxyhemoglobin ABG Sodium ABG Potassium ABG Chloride ABG Glucose Oxyhemoglobin Carboxyhemoglobin Sodium Potassium 8.2 H* 6.5 H* D Chloride 96.7 L Carbon Dioxide 21 L BUN 52 H Creatinine 5.7 H Glucose 220 H POC Glucose Calcium Phosphorus Magnesium Ferritin AST 68 H Alkaline Phosphatase 364 H Lactate Dehydrogenase Troponin T Total Protein Albumin 3.7 L HDL Cholesterol Arterial Blood Glucose Arterial Blood Ionized Calcium Crossmatch 08/30/20 08/30/20 08/31/20 17:27 21:03 04:07 WBC RBC Hgb Hct MCV MCH RDW Plt Count Lymph % (Auto) [place] % (Auto) Lymph # (Auto) Seg Neutrophils % Seg Neuts % (Manual) Lymphocytes % (Manual) Nucleated RBC % Seg Neutrophils # Seg Neutrophils # Man Lymphocytes # (Manual) D-Dimer ABG pH 7.498 H POC ABG pCO2 27.9 L POC ABG pO2 126.9 H ABG HCO3 ABG Base Excess ABG Hemoglobin 10.1 L ABG Oxyhemoglobin 98.3 H ABG Sodium 134.3 L ABG Potassium 6.7 H ABG Chloride ABG Glucose 261 H Oxyhemoglobin Carboxyhemoglobin 0.1 L Sodium Potassium Chloride Carbon Dioxide BUN Creatinine Glucose POC Glucose 223 H 230 H Calcium Phosphorus Magnesium Ferritin AST Alkaline Phosphatase Lactate Dehydrogenase Troponin T Total Protein Albumin HDL Cholesterol Arterial Blood Glucose 261 H Arterial Blood Ionized Calcium 3.6 L Crossmatch 08/31/20 08/31/20 08/31/20 05:01 05:45 05:45 WBC 13.1 H RBC 2.83 L Hgb 9.6 L Hct 29.8 L MCV 105 H MCH 34 H RDW 18.9 H Plt Count 88 L Lymph % (Auto) 6.9 L [place] % (Auto) Lymph # (Auto) 0.9 L Seg Neutrophils % 87.8 H Seg Neuts % (Manual) Lymphocytes % (Manual) Nucleated RBC % Seg Neutrophils # 11.5 H Seg Neutrophils # Man Lymphocytes # (Manual) D-Dimer ABG pH POC ABG pCO2 POC ABG pO2 ABG HCO3 ABG Base Excess ABG Hemoglobin ABG Oxyhemoglobin ABG Sodium ABG Potassium ABG Chloride ABG Glucose Oxyhemoglobin Carboxyhemoglobin Sodium Potassium 7.1 H* Chloride 96.7 L Carbon Dioxide BUN 74 H Creatinine 7.0 H Glucose 254 H POC Glucose 256 H Calcium 7.6 L Phosphorus Magnesium Ferritin AST Alkaline Phosphatase Lactate Dehydrogenase Troponin T Total Protein Albumin HDL Cholesterol Arterial Blood Glucose Arterial Blood Ionized Calcium Crossmatch 08/31/20 08/31/20 09/01/20 11:38 23:31 03:13 WBC RBC Hgb Hct MCV MCH RDW Plt Count Lymph % (Auto) [place] % (Auto) Lymph # (Auto) Seg Neutrophils % Seg Neuts % (Manual) Lymphocytes % (Manual) Nucleated RBC % Seg Neutrophils # Seg Neutrophils # Man Lymphocytes # (Manual) D-Dimer ABG pH 7.519 H POC ABG pCO2 POC ABG pO2 ABG HCO3 ABG Base Excess ABG Hemoglobin 9.3 L ABG Oxyhemoglobin ABG Sodium 134.7 L ABG Potassium ABG Chloride 94.0 L ABG Glucose 441 H Oxyhemoglobin Carboxyhemoglobin Sodium Potassium Chloride Carbon Dioxide BUN Creatinine Glucose POC Glucose 294 H 426 H Calcium Phosphorus Magnesium Ferritin AST Alkaline Phosphatase Lactate Dehydrogenase Troponin T Total Protein Albumin HDL Cholesterol Arterial Blood Glucose 441 H Arterial Blood Ionized Calcium 3.8 L Crossmatch 09/01/20 09/01/20 09/01/20 05:20 10:32 11:45 WBC RBC Hgb Hct MCV MCH RDW Plt Count Lymph % (Auto) [place] % (Auto) Lymph # (Auto) Seg Neutrophils % Seg Neuts % (Manual) Lymphocytes % (Manual) Nucleated RBC % Seg Neutrophils # Seg Neutrophils # Man Lymphocytes # (Manual) D-Dimer ABG pH POC ABG pCO2 POC ABG pO2 ABG HCO3 ABG Base Excess ABG Hemoglobin ABG Oxyhemoglobin ABG Sodium ABG Potassium ABG Chloride ABG Glucose Oxyhemoglobin Carboxyhemoglobin Sodium Potassium Chloride Carbon Dioxide BUN Creatinine Glucose POC Glucose 422 H 227 H 203 H Calcium Phosphorus Magnesium Ferritin AST Alkaline Phosphatase Lactate Dehydrogenase Troponin T Total Protein Albumin HDL Cholesterol Arterial Blood Glucose Arterial Blood Ionized Calcium Crossmatch 09/01/20 09/01/20 09/01/20 13:34 17:11 17:29 WBC RBC Hgb Hct MCV MCH RDW Plt Count Lymph % (Auto) [place] % (Auto) Lymph # (Auto) Seg Neutrophils % Seg Neuts % (Manual) Lymphocytes % (Manual) Nucleated RBC % Seg Neutrophils # Seg Neutrophils # Man Lymphocytes # (Manual) D-Dimer ABG pH POC ABG pCO2 POC ABG pO2 ABG HCO3 ABG Base Excess ABG Hemoglobin ABG Oxyhemoglobin ABG Sodium ABG Potassium ABG Chloride ABG Glucose Oxyhemoglobin Carboxyhemoglobin Sodium Potassium Chloride 94.5 L Carbon Dioxide BUN 29 H Creatinine 3.4 H D Glucose 241 H POC Glucose 212 H 198 H Calcium 8.2 L Phosphorus Magnesium Ferritin AST Alkaline Phosphatase Lactate Dehydrogenase Troponin T Total Protein Albumin HDL Cholesterol Arterial Blood Glucose Arterial Blood Ionized Calcium Crossmatch 09/01/20 09/02/20 09/02/20 21:33 03:08 03:40 WBC RBC Hgb Hct MCV MCH RDW Plt Count Lymph % (Auto) [place] % (Auto) Lymph # (Auto) Seg Neutrophils % Seg Neuts % (Manual) Lymphocytes % (Manual) Nucleated RBC % Seg Neutrophils # Seg Neutrophils # Man Lymphocytes # (Manual) D-Dimer ABG pH 7.506 H POC ABG pCO2 POC ABG pO2 ABG HCO3 29.4 H ABG Base Excess 5.9 H ABG Hemoglobin 8.3 L ABG Oxyhemoglobin ABG Sodium ABG Potassium ABG Chloride ABG Glucose Oxyhemoglobin 94.8 L Carboxyhemoglobin Sodium Potassium Chloride Carbon Dioxide BUN Creatinine Glucose POC Glucose 188 H 179 H Calcium Phosphorus Magnesium Ferritin AST Alkaline Phosphatase Lactate Dehydrogenase Troponin T Total Protein Albumin HDL Cholesterol Arterial Blood Glucose Arterial Blood Ionized Calcium Crossmatch 09/02/20 09/02/20 09/02/20 05:55 07:12 09:28 WBC RBC Hgb Hct MCV MCH RDW Plt Count Lymph % (Auto) [place] % (Auto) Lymph # (Auto) Seg Neutrophils % Seg Neuts % (Manual) Lymphocytes % (Manual) Nucleated RBC % Seg Neutrophils # Seg Neutrophils # Man Lymphocytes # (Manual) D-Dimer ABG pH POC ABG pCO2 POC ABG pO2 ABG HCO3 ABG Base Excess ABG Hemoglobin ABG Oxyhemoglobin ABG Sodium ABG Potassium ABG Chloride ABG Glucose Oxyhemoglobin Carboxyhemoglobin Sodium 136 L Potassium Chloride 91.6 L Carbon Dioxide BUN 52 H Creatinine 5.5 H D Glucose 176 H POC Glucose 185 H 196 H Calcium 7.7 L Phosphorus Magnesium Ferritin AST Alkaline Phosphatase Lactate Dehydrogenase Troponin T Total Protein Albumin HDL Cholesterol Arterial Blood Glucose Arterial Blood Ionized Calcium Crossmatch 09/02/20 09/02/20 09/02/20 11:06 13:03 17:22 WBC RBC Hgb Hct MCV MCH RDW Plt Count Lymph % (Auto) [place] % (Auto) Lymph # (Auto) Seg Neutrophils % Seg Neuts % (Manual) Lymphocytes % (Manual) Nucleated RBC % Seg Neutrophils # Seg Neutrophils # Man Lymphocytes # (Manual) D-Dimer ABG pH POC ABG pCO2 POC ABG pO2 ABG HCO3 ABG Base Excess ABG Hemoglobin ABG Oxyhemoglobin ABG Sodium ABG Potassium ABG Chloride ABG Glucose Oxyhemoglobin Carboxyhemoglobin Sodium Potassium Chloride Carbon Dioxide BUN Creatinine Glucose POC Glucose 224 H 252 H 196 H Calcium Phosphorus Magnesium Ferritin AST Alkaline Phosphatase Lactate Dehydrogenase Troponin T Total Protein Albumin HDL Cholesterol Arterial Blood Glucose Arterial Blood Ionized Calcium Crossmatch 09/02/20 09/03/20 09/03/20 21:13 02:02 04:12 WBC RBC Hgb Hct MCV MCH RDW Plt Count Lymph % (Auto) [place] % (Auto) Lymph # (Auto) Seg Neutrophils % Seg Neuts % (Manual) Lymphocytes % (Manual) Nucleated RBC % Seg Neutrophils # Seg Neutrophils # Man Lymphocytes # (Manual) D-Dimer ABG pH POC ABG pCO2 POC ABG pO2 ABG HCO3 ABG Base Excess ABG Hemoglobin ABG Oxyhemoglobin ABG Sodium ABG Potassium ABG Chloride ABG Glucose Oxyhemoglobin Carboxyhemoglobin Sodium 136 L Potassium Chloride 90.3 L Carbon Dioxide BUN 79 H Creatinine 8.1 H Glucose 223 H POC Glucose 204 H 205 H Calcium 7.1 L Phosphorus Magnesium Ferritin AST Alkaline Phosphatase Lactate Dehydrogenase Troponin T Total Protein Albumin HDL Cholesterol Arterial Blood Glucose Arterial Blood Ionized Calcium Crossmatch 09/03/20 09/03/20 09/03/20 04:12 05:35 09:28 WBC RBC 2.35 L Hgb 8.3 L Hct 25.1 L MCV 107 H MCH 35 H RDW 18.5 H Plt Count 87 L Lymph % (Auto) [place] % (Auto) Lymph # (Auto) Seg Neutrophils % Seg Neuts % (Manual) Lymphocytes % (Manual) Nucleated RBC % Seg Neutrophils # Seg Neutrophils # Man Lymphocytes # (Manual) D-Dimer ABG pH POC ABG pCO2 POC ABG pO2 ABG HCO3 ABG Base Excess ABG Hemoglobin ABG Oxyhemoglobin ABG Sodium ABG Potassium ABG Chloride ABG Glucose Oxyhemoglobin Carboxyhemoglobin Sodium Potassium Chloride Carbon Dioxide BUN Creatinine Glucose POC Glucose 219 H 202 H Calcium Phosphorus Magnesium Ferritin AST Alkaline Phosphatase Lactate Dehydrogenase Troponin T Total Protein Albumin HDL Cholesterol Arterial Blood Glucose Arterial Blood Ionized Calcium Crossmatch 09/03/20 09/03/20 09/03/20 11:36 13:41 16:56 WBC RBC Hgb Hct MCV MCH RDW Plt Count Lymph % (Auto) [place] % (Auto) Lymph # (Auto) Seg Neutrophils % Seg Neuts % (Manual) Lymphocytes % (Manual) Nucleated RBC % Seg Neutrophils # Seg Neutrophils # Man Lymphocytes # (Manual) D-Dimer ABG pH POC ABG pCO2 POC ABG pO2 ABG HCO3 ABG Base Excess ABG Hemoglobin ABG Oxyhemoglobin ABG Sodium ABG Potassium ABG Chloride ABG Glucose Oxyhemoglobin Carboxyhemoglobin Sodium Potassium Chloride Carbon Dioxide BUN Creatinine Glucose POC Glucose 216 H 224 H 298 H Calcium Phosphorus Magnesium Ferritin AST Alkaline Phosphatase Lactate Dehydrogenase Troponin T Total Protein Albumin HDL Cholesterol Arterial Blood Glucose Arterial Blood Ionized Calcium Crossmatch 09/03/20 09/04/20 09/04/20 20:49 00:23 05:28 WBC RBC Hgb Hct MCV MCH RDW Plt Count Lymph % (Auto) [place] % (Auto) Lymph # (Auto) Seg Neutrophils % Seg Neuts % (Manual) Lymphocytes % (Manual) Nucleated RBC % Seg Neutrophils # Seg Neutrophils # Man Lymphocytes # (Manual) D-Dimer ABG pH POC ABG pCO2 POC ABG pO2 ABG HCO3 ABG Base Excess ABG Hemoglobin ABG Oxyhemoglobin ABG Sodium ABG Potassium ABG Chloride ABG Glucose Oxyhemoglobin Carboxyhemoglobin Sodium Potassium Chloride Carbon Dioxide BUN Creatinine Glucose POC Glucose 228 H 228 H 283 H Calcium Phosphorus Magnesium Ferritin AST Alkaline Phosphatase Lactate Dehydrogenase Troponin T Total Protein Albumin HDL Cholesterol Arterial Blood Glucose Arterial Blood Ionized Calcium Crossmatch 09/04/20 09/04/20 09/04/20 10:03 17:39 21:45 WBC RBC Hgb Hct MCV MCH RDW Plt Count Lymph % (Auto) [place] % (Auto) Lymph # (Auto) Seg Neutrophils % Seg Neuts % (Manual) Lymphocytes % (Manual) Nucleated RBC % Seg Neutrophils # Seg Neutrophils # Man Lymphocytes # (Manual) D-Dimer ABG pH POC ABG pCO2 POC ABG pO2 ABG HCO3 ABG Base Excess ABG Hemoglobin ABG Oxyhemoglobin ABG Sodium ABG Potassium ABG Chloride ABG Glucose Oxyhemoglobin Carboxyhemoglobin Sodium Potassium Chloride Carbon Dioxide BUN Creatinine Glucose POC Glucose 159 H 128 H 213 H Calcium Phosphorus Magnesium Ferritin AST Alkaline Phosphatase Lactate Dehydrogenase Troponin T Total Protein Albumin HDL Cholesterol Arterial Blood Glucose Arterial Blood Ionized Calcium Crossmatch 09/05/20 09/05/20 09/05/20 02:04 05:33 09:25 WBC RBC Hgb Hct MCV MCH RDW Plt Count Lymph % (Auto) [place] % (Auto) Lymph # (Auto) Seg Neutrophils % Seg Neuts % (Manual) Lymphocytes % (Manual) Nucleated RBC % Seg Neutrophils # Seg Neutrophils # Man Lymphocytes # (Manual) D-Dimer ABG pH POC ABG pCO2 POC ABG pO2 ABG HCO3 ABG Base Excess ABG Hemoglobin ABG Oxyhemoglobin ABG Sodium ABG Potassium ABG Chloride ABG Glucose Oxyhemoglobin Carboxyhemoglobin Sodium Potassium Chloride Carbon Dioxide BUN Creatinine Glucose POC Glucose 178 H 177 H 199 H Calcium Phosphorus Magnesium Ferritin AST Alkaline Phosphatase Lactate Dehydrogenase Troponin T Total Protein Albumin HDL Cholesterol Arterial Blood Glucose Arterial Blood Ionized Calcium Crossmatch 09/05/20 09/05/20 09/05/20 13:26 16:47 21:40 WBC RBC Hgb Hct MCV MCH RDW Plt Count Lymph % (Auto) [place] % (Auto) Lymph # (Auto) Seg Neutrophils % Seg Neuts % (Manual) Lymphocytes % (Manual) Nucleated RBC % Seg Neutrophils # Seg Neutrophils # Man Lymphocytes # (Manual) D-Dimer ABG pH POC ABG pCO2 POC ABG pO2 ABG HCO3 ABG Base Excess ABG Hemoglobin ABG Oxyhemoglobin ABG Sodium ABG Potassium ABG Chloride ABG Glucose Oxyhemoglobin Carboxyhemoglobin Sodium Potassium Chloride Carbon Dioxide BUN Creatinine Glucose POC Glucose 136 H 141 H 131 H Calcium Phosphorus Magnesium Ferritin AST Alkaline Phosphatase Lactate Dehydrogenase Troponin T Total Protein Albumin HDL Cholesterol Arterial Blood Glucose Arterial Blood Ionized Calcium Crossmatch 09/06/20 09/06/20 09/06/20 03:16 05:20 07:39 WBC RBC Hgb Hct MCV MCH RDW Plt Count Lymph % (Auto) [place] % (Auto) Lymph # (Auto) Seg Neutrophils % Seg Neuts % (Manual) Lymphocytes % (Manual) Nucleated RBC % Seg Neutrophils # Seg Neutrophils # Man Lymphocytes # (Manual) D-Dimer ABG pH POC ABG pCO2 POC ABG pO2 66.8 L ABG HCO3 ABG Base Excess ABG Hemoglobin 9.3 L ABG Oxyhemoglobin 89.9 L ABG Sodium 130.5 L ABG Potassium 5.1 H ABG Chloride 91.0 L ABG Glucose 224 H Oxyhemoglobin Carboxyhemoglobin Sodium Potassium Chloride Carbon Dioxide BUN Creatinine Glucose POC Glucose 112 H 163 H Calcium Phosphorus Magnesium Ferritin AST Alkaline Phosphatase Lactate Dehydrogenase Troponin T Total Protein Albumin HDL Cholesterol Arterial Blood Glucose 224 H Arterial Blood Ionized Calcium 3.8 L Crossmatch 09/06/20 09/06/20 09/06/20 09:30 15:27 17:57 WBC RBC Hgb Hct MCV MCH RDW Plt Count Lymph % (Auto) [place] % (Auto) Lymph # (Auto) Seg Neutrophils % Seg Neuts % (Manual) Lymphocytes % (Manual) Nucleated RBC % Seg Neutrophils # Seg Neutrophils # Man Lymphocytes # (Manual) D-Dimer ABG pH POC ABG pCO2 POC ABG pO2 ABG HCO3 ABG Base Excess ABG Hemoglobin ABG Oxyhemoglobin ABG Sodium ABG Potassium ABG Chloride ABG Glucose Oxyhemoglobin Carboxyhemoglobin Sodium Potassium Chloride Carbon Dioxide BUN Creatinine Glucose POC Glucose 236 H 166 H 130 H Calcium Phosphorus Magnesium Ferritin AST Alkaline Phosphatase Lactate Dehydrogenase Troponin T Total Protein Albumin HDL Cholesterol Arterial Blood Glucose Arterial Blood Ionized Calcium Crossmatch 09/06/20 09/07/20 09/07/20 22:21 03:28 04:00 WBC RBC Hgb Hct MCV MCH RDW Plt Count Lymph % (Auto) [place] % (Auto) Lymph # (Auto) Seg Neutrophils % Seg Neuts % (Manual) Lymphocytes % (Manual) Nucleated RBC % Seg Neutrophils # Seg Neutrophils # Man Lymphocytes # (Manual) D-Dimer ABG pH POC ABG pCO2 POC ABG pO2 62.2 L ABG HCO3 ABG Base Excess ABG Hemoglobin 8.0 L ABG Oxyhemoglobin 87.8 L ABG Sodium 127.3 L ABG Potassium 5.7 H ABG Chloride 89.0 L ABG Glucose 232 H Oxyhemoglobin Carboxyhemoglobin Sodium Potassium Chloride Carbon Dioxide BUN Creatinine Glucose POC Glucose 154 H 183 H Calcium Phosphorus Magnesium Ferritin AST Alkaline Phosphatase Lactate Dehydrogenase Troponin T Total Protein Albumin HDL Cholesterol Arterial Blood Glucose 232 H Arterial Blood Ionized Calcium 3.7 L Crossmatch 09/07/20 09/07/20 09/07/20 04:12 04:12 05:45 WBC RBC 2.32 L Hgb 7.9 L Hct 24.0 L MCV 104 H MCH 34 H RDW 17.7 H Plt Count 116 L Lymph % (Auto) 8.5 L [place] % (Auto) 9.0 H Lymph # (Auto) 0.7 L Seg Neutrophils % 81.3 H Seg Neuts % (Manual) Lymphocytes % (Manual) Nucleated RBC % Seg Neutrophils # Seg Neutrophils # Man Lymphocytes # (Manual) D-Dimer ABG pH POC ABG pCO2 POC ABG pO2 ABG HCO3 ABG Base Excess ABG Hemoglobin ABG Oxyhemoglobin ABG Sodium ABG Potassium ABG Chloride ABG Glucose Oxyhemoglobin Carboxyhemoglobin Sodium 133 L Potassium 6.2 H* D Chloride 85.8 L Carbon Dioxide BUN 132 H Creatinine 9.8 H Glucose 227 H POC Glucose 223 H Calcium 7.9 L Phosphorus Magnesium Ferritin AST Alkaline Phosphatase Lactate Dehydrogenase Troponin T Total Protein Albumin HDL Cholesterol Arterial Blood Glucose Arterial Blood Ionized Calcium Crossmatch 09/07/20 09/07/20 09/07/20 07:49 11:48 18:13 WBC RBC Hgb Hct MCV MCH RDW Plt Count Lymph % (Auto) [place] % (Auto) Lymph # (Auto) Seg Neutrophils % Seg Neuts % (Manual) Lymphocytes % (Manual) Nucleated RBC % Seg Neutrophils # Seg Neutrophils # Man Lymphocytes # (Manual) D-Dimer ABG pH POC ABG pCO2 POC ABG pO2 ABG HCO3 ABG Base Excess ABG Hemoglobin ABG Oxyhemoglobin ABG Sodium ABG Potassium ABG Chloride ABG Glucose Oxyhemoglobin Carboxyhemoglobin Sodium Potassium Chloride Carbon Dioxide BUN Creatinine Glucose POC Glucose 281 H 169 H 162 H Calcium Phosphorus Magnesium Ferritin AST Alkaline Phosphatase Lactate Dehydrogenase Troponin T Total Protein Albumin HDL Cholesterol Arterial Blood Glucose Arterial Blood Ionized Calcium Crossmatch 09/07/20 09/08/20 09/08/20 20:53 01:07 05:49 WBC RBC Hgb Hct MCV MCH RDW Plt Count Lymph % (Auto) [place] % (Auto) Lymph # (Auto) Seg Neutrophils % Seg Neuts % (Manual) Lymphocytes % (Manual) Nucleated RBC % Seg Neutrophils # Seg Neutrophils # Man Lymphocytes # (Manual) D-Dimer ABG pH POC ABG pCO2 POC ABG pO2 ABG HCO3 ABG Base Excess ABG Hemoglobin ABG Oxyhemoglobin ABG Sodium ABG Potassium ABG Chloride ABG Glucose Oxyhemoglobin Carboxyhemoglobin Sodium Potassium Chloride Carbon Dioxide BUN Creatinine Glucose POC Glucose 205 H 180 H 186 H Calcium Phosphorus Magnesium Ferritin AST Alkaline Phosphatase Lactate Dehydrogenase Troponin T Total Protein Albumin HDL Cholesterol Arterial Blood Glucose Arterial Blood Ionized Calcium Crossmatch 09/08/20 09/08/20 09/08/20 11:44 13:56 17:31 WBC RBC Hgb Hct MCV MCH RDW Plt Count Lymph % (Auto) [place] % (Auto) Lymph # (Auto) Seg Neutrophils % Seg Neuts % (Manual) Lymphocytes % (Manual) Nucleated RBC % Seg Neutrophils # Seg Neutrophils # Man Lymphocytes # (Manual) D-Dimer ABG pH POC ABG pCO2 POC ABG pO2 150.6 H ABG HCO3 ABG Base Excess ABG Hemoglobin 6.6 L ABG Oxyhemoglobin ABG Sodium 133.2 L ABG Potassium ABG Chloride 90.0 L ABG Glucose 173 H Oxyhemoglobin Carboxyhemoglobin Sodium Potassium Chloride Carbon Dioxide BUN Creatinine Glucose POC Glucose 164 H 160 H Calcium Phosphorus Magnesium Ferritin AST Alkaline Phosphatase Lactate Dehydrogenase Troponin T Total Protein Albumin HDL Cholesterol Arterial Blood Glucose 173 H Arterial Blood Ionized Calcium 3.5 L Crossmatch 09/08/20 09/09/20 09/09/20 19:19 02:39 03:43 WBC RBC Hgb Hct MCV MCH RDW Plt Count Lymph % (Auto) [place] % (Auto) Lymph # (Auto) Seg Neutrophils % Seg Neuts % (Manual) Lymphocytes % (Manual) Nucleated RBC % Seg Neutrophils # Seg Neutrophils # Man Lymphocytes # (Manual) D-Dimer ABG pH POC ABG pCO2 POC ABG pO2 58.6 L ABG HCO3 ABG Base Excess ABG Hemoglobin 6.8 L ABG Oxyhemoglobin 84.7 L ABG Sodium 131.6 L ABG Potassium ABG Chloride 88.0 L ABG Glucose 214 H Oxyhemoglobin Carboxyhemoglobin Sodium Potassium Chloride Carbon Dioxide BUN Creatinine Glucose POC Glucose 160 H 201 H Calcium Phosphorus Magnesium Ferritin AST Alkaline Phosphatase Lactate Dehydrogenase Troponin T Total Protein Albumin HDL Cholesterol Arterial Blood Glucose 214 H Arterial Blood Ionized Calcium 3.3 L Crossmatch 09/09/20 09/09/20 09/09/20 05:55 09:52 14:20 WBC RBC Hgb Hct MCV MCH RDW Plt Count Lymph % (Auto) [place] % (Auto) Lymph # (Auto) Seg Neutrophils % Seg Neuts % (Manual) Lymphocytes % (Manual) Nucleated RBC % Seg Neutrophils # Seg Neutrophils # Man Lymphocytes # (Manual) D-Dimer ABG pH POC ABG pCO2 POC ABG pO2 ABG HCO3 ABG Base Excess ABG Hemoglobin ABG Oxyhemoglobin ABG Sodium ABG Potassium ABG Chloride ABG Glucose Oxyhemoglobin Carboxyhemoglobin Sodium Potassium Chloride Carbon Dioxide BUN Creatinine Glucose POC Glucose 190 H 159 H 161 H Calcium Phosphorus Magnesium Ferritin AST Alkaline Phosphatase Lactate Dehydrogenase Troponin T Total Protein Albumin HDL Cholesterol Arterial Blood Glucose Arterial Blood Ionized Calcium Crossmatch 09/09/20 09/10/20 09/10/20 17:45 02:10 03:07 WBC RBC Hgb Hct MCV MCH RDW Plt Count Lymph % (Auto) [place] % (Auto) Lymph # (Auto) Seg Neutrophils % Seg Neuts % (Manual) Lymphocytes % (Manual) Nucleated RBC % Seg Neutrophils # Seg Neutrophils # Man Lymphocytes # (Manual) D-Dimer ABG pH POC ABG pCO2 POC ABG pO2 63.5 L ABG HCO3 ABG Base Excess ABG Hemoglobin 7.0 L ABG Oxyhemoglobin 88.3 L ABG Sodium 130.1 L ABG Potassium 5.0 H ABG Chloride 87.0 L ABG Glucose Oxyhemoglobin Carboxyhemoglobin Sodium Potassium Chloride Carbon Dioxide BUN Creatinine Glucose POC Glucose 140 H 116 H Calcium Phosphorus Magnesium Ferritin AST Alkaline Phosphatase Lactate Dehydrogenase Troponin T Total Protein Albumin HDL Cholesterol Arterial Blood Glucose Arterial Blood Ionized Calcium 3.2 L Crossmatch 09/10/20 09/10/20 09/10/20 06:34 07:15 07:15 WBC RBC 1.88 L Hgb 6.5 L Hct 19.1 L* MCV 102 H MCH 34 H RDW 17.5 H Plt Count 121 L Lymph % (Auto) [place] % (Auto) Lymph # (Auto) Seg Neutrophils % Seg Neuts % (Manual) 93.0 H Lymphocytes % (Manual) 4.0 L Nucleated RBC % Seg Neutrophils # Seg Neutrophils # Man 8.8 H Lymphocytes # (Manual) 0.4 L D-Dimer ABG pH POC ABG pCO2 POC ABG pO2 ABG HCO3 ABG Base Excess ABG Hemoglobin ABG Oxyhemoglobin ABG Sodium ABG Potassium ABG Chloride ABG Glucose Oxyhemoglobin Carboxyhemoglobin Sodium Potassium 5.2 H Chloride 84.4 L Carbon Dioxide BUN 189 H Creatinine 12.4 H Glucose 118 H POC Glucose 125 H Calcium 6.8 L Phosphorus Magnesium Ferritin AST Alkaline Phosphatase Lactate Dehydrogenase Troponin T Total Protein Albumin HDL Cholesterol Arterial Blood Glucose Arterial Blood Ionized Calcium Crossmatch 09/10/20 09/10/20 09/10/20 08:35 09:05 21:47 WBC RBC Hgb Hct MCV MCH RDW Plt Count Lymph % (Auto) [place] % (Auto) Lymph # (Auto) Seg Neutrophils % Seg Neuts % (Manual) Lymphocytes % (Manual) Nucleated RBC % Seg Neutrophils # Seg Neutrophils # Man Lymphocytes # (Manual) D-Dimer ABG pH POC ABG pCO2 POC ABG pO2 ABG HCO3 ABG Base Excess ABG Hemoglobin ABG Oxyhemoglobin ABG Sodium ABG Potassium ABG Chloride ABG Glucose Oxyhemoglobin Carboxyhemoglobin Sodium Potassium Chloride Carbon Dioxide BUN Creatinine Glucose POC Glucose 107 H 66 L Calcium Phosphorus Magnesium Ferritin AST Alkaline Phosphatase Lactate Dehydrogenase Troponin T Total Protein Albumin HDL Cholesterol Arterial Blood Glucose Arterial Blood Ionized Calcium Crossmatch See Detail 09/10/20 09/11/20 09/11/20 23:35 00:02 10:13 WBC RBC Hgb Hct MCV MCH RDW Plt Count Lymph % (Auto) [place] % (Auto) Lymph # (Auto) Seg Neutrophils % Seg Neuts % (Manual) Lymphocytes % (Manual) Nucleated RBC % Seg Neutrophils # Seg Neutrophils # Man Lymphocytes # (Manual) D-Dimer ABG pH POC ABG pCO2 POC ABG pO2 ABG HCO3 ABG Base Excess ABG Hemoglobin ABG Oxyhemoglobin ABG Sodium ABG Potassium ABG Chloride ABG Glucose Oxyhemoglobin Carboxyhemoglobin Sodium Potassium Chloride Carbon Dioxide BUN Creatinine Glucose POC Glucose 129 H 133 H 120 H Calcium Phosphorus Magnesium Ferritin AST Alkaline Phosphatase Lactate Dehydrogenase Troponin T Total Protein Albumin HDL Cholesterol Arterial Blood Glucose Arterial Blood Ionized Calcium Crossmatch 09/11/20 09/11/20 09/11/20 11:51 15:18 17:39 WBC RBC Hgb Hct MCV MCH RDW Plt Count Lymph % (Auto) [place] % (Auto) Lymph # (Auto) Seg Neutrophils % Seg Neuts % (Manual) Lymphocytes % (Manual) Nucleated RBC % Seg Neutrophils # Seg Neutrophils # Man Lymphocytes # (Manual) D-Dimer ABG pH POC ABG pCO2 POC ABG pO2 ABG HCO3 ABG Base Excess ABG Hemoglobin ABG Oxyhemoglobin ABG Sodium ABG Potassium ABG Chloride ABG Glucose Oxyhemoglobin Carboxyhemoglobin Sodium Potassium Chloride Carbon Dioxide BUN Creatinine Glucose POC Glucose 141 H 162 H 139 H Calcium Phosphorus Magnesium Ferritin AST Alkaline Phosphatase Lactate Dehydrogenase Troponin T Total Protein Albumin HDL Cholesterol Arterial Blood Glucose Arterial Blood Ionized Calcium Crossmatch Chest x-ray: other (none today) Allied health notes reviewed: nursing
[2020-09-12] MEDS: INSULIN REGULAR, HUMAN 100 UNITS/1 ML SUB-Q SCH ×7 (02:00→21:50)
[2020-09-12] MEDS: HEPARIN 5,000 UNIT/1 ML VIAL SUB-Q SCH ×3 (06:07→21:44)
[2020-09-12] MEDS: METOPROLOL TARTRATE 50 MG TAB PO SCH ×3 (06:08→21:45)
[2020-09-12] MEDS: MIDODRINE 5 MG TAB PO SCH ×4 (06:08→20:46)
[2020-09-12] MEDS: NITROGLYCERIN 0.4 MG PATCH 24HR TD SCH (06:11)
--- NOTE | 2020-09-12 07:46 | Progress Note ---
Assessment and Plan Assessment and Plan Assessment and plan: 65-year-old female with DM, HTN, HLD, ESRD on HD MWF, multiple myeloma s/p chemotherapy and stem cell transplant and current tobacco abuse was admitted through emergency room s/p out of the hospital cardiac arrest with anoxic encephalopathy, hypertensive emergency, multifocal pneumonia. COVID-19 was ruled out, patient remains intubated on ventilatory support, with very poor prognosis, family is considering hospice have not decided yet. Very poor prognosis. Patient is made DNR today. Hospice placement were discussed --Patient is hypotensive; Hold blood pressure medications, gentle hydration with fluid bolus monitor blood pressures. If no improvement consider vaso-pressors as needed --Hyperkalemia; potassium levels normal range Closely monitor electrolytes --COVID-19, ruled out --S/p outside the hospital cardiac arrest; Status post CPR per ACLS protocol Continue supportive care, cardiology following --Acute hypoxic respiratory failure/intubated on ventilatory support; Continue ventilator support, wean as tolerated, nebulizers, pulmonary following --Global/diffuse anoxic brain injury/encephalopathy as evidenced by MRI; 09/01/2020 Neurology evaluated the patient. Very poor prognosis, recommend palliative care --ESRD on HD; nephrology following, HD per schedule, HD is on hold in view of patient's family considering hospice --Pericardial effusion; stable --Severe cardiomegaly; Continue antifailure medications, diuretics, beta-blockers, BENJAMIN inhibitors Input output monitoring, cardiology following --Type II diabetes mellitus; Continue Accu-Chek sliding scale coverage tube feeding, long-acting insulin Lantus Tube feeding --Transaminitis; check LFTs, trend the levels --Hypertension; patient is hypotensive Hold antihypertensives , closely monitor --h/o Multiple myeloma: Patient follows with hematology oncologist at [place] --Current tobacco abuse; --Possible seizure activity; continue Keppra Seizure precautions --Nutrition; tube feeding per protocol --Full CODE STATUS --DC planning per case management Family considering inpatient hospice admission, Pending decision.AND placed Consultants. Pulmonary critical care. Cardiology. Nephrology. Neurology. ID evaluations and recommendations Noted and appreciated DVT/GI prophylaxis: Subcu heparin, SCDs Protonix, Disposition: Hospice pending family decision' AND signed today The high probability of a clinically significant, sudden or life threatening det erioration of the [multi] system(s) required my full and direct attention, intervention and personal management. The aggregate critical care time was [35] minutes. This time is in addition to time spent performing reported procedures but includes the following: [x] Data Review and interpretation [x] Patient assessment and monitoring of vital signs [x] Documentation [x] Medication orders and management Subjective Date of service: 09/11/20 Principal diagnosis: Cardiac arrest; Ac. hypoxemic resp failure; PNA; ESRD; NSTE GA; Hyperkalemia Interval history: Brief history and daily hospital course This is 65-year-old female with diabetes mellitus, hypertension, hyperlipidemia, ESRD on HD MWF via left chest permacath, multiple myeloma s/p chemotherapy and stem cell transplant with right chest port, immature right upper extremity aVF and current tobacco abuse who presented to the emergency department on 08/30 s/p cardiac arrest after being found laying in driveway, unresponsive and in asystole by EMS after being called for shortness of breath. Patient was in tubated by EMS and received 3 mg epinephrine, calcium and serum bicarbonate and ROSC was eventually achieved after 10 minutes of resuscitation. Recommend emergency department revealed hyperkalemia, CXR showed moderate enlargement of cardiac silhouette, diffuse bilateral mixed interstitial and airspace disease with considerations to pulmonary edema or multifocal infectious process. Patient was admitted to the hospitalist service s/p cardiac arrest with anoxic encephalopathy, ESRD on HD, hypertensive emergency, multifocal pneumonia and a and has a COVID-19 PUI. CCM, nephrology, neurology infectious disease and cardiology were consulted. 08/30: This morning neurology was consulted, patient noted to have leukocytosis, hyperkalemia, metabolic acidosis and hyperglycemia. Patient had hyperph osphatemia, hypomagnesemia also. Patient had hemodialysis today per nephrology. COVID-19 PCR negative. Patient was in ED holding and admitted to the ICU later during the day. Patient is sedated on fentanyl and propofol. At the time my examination she was assist-control, rate of 28, tidal and 450, 60 PEEP and FiO2 of 60%. 08/31: Patient received hemodialysis however she is hyperkalemia again which was treated with dextrose, insulin and Kionex. Patient received hemodialysis again today per nephrology. Patient continues with with meropenem until blood cultures per infectious disease. MRI brain and EEG pending, lactulose discontinued (which was started due to large stool burden). We will follow up on cultures and BMP. Patient also noted to be hyperglycemic and was started on long acting insulin. Family updated at bedside by nurse mahmood and Dr. Garces. 09/01: Patient was noted to be hypertensive yesterday evening and today so cardiology will start the patient on a nitroglycerin drip and IV metoprolol. CCM reduced rate. Patient received hemodialysis today and scheduled for MRI brain. Patient noted to be hyperkalemic and follow-up BMP shows a potassium of 4. Patient's MRI brain showed diffuse anoxic brain injury and Dr. Garces updated the family at bedside. 09/02: Patient had an MRI brain yesterday which showed global anoxic brain injury. At the time of my examination patient was on PCV CPAP with tidal volume 450, FiO2 of 30. Patient is hyperglycemic and insulin dosage increased. Family decision has not been made, Dr. Silva and / Dez updated family. Neurology has signed off 09/03: Patient continues to be hypoglycemic and long-acting insulin dosage increased. She is receiving hemodialysis today. Patient has a referral to inpatient hospice. No acute events reported overnight. CM speaking to family re hospice. Cardio changed BP medications to PO. CCM to discuss goals of care and rT to rest daily on AC at night/continue CPAP trials during the day. 09/04: Patient was noted to have possible seizure activity and was given 2 mg of Ativan by CCM. Patient was later hypotensive tensive and received a 250 mL normal saline bolus which was communicated to nephrology. Per nephrology will like to avoid excessive fluid boluses to prevent issues with fluid overload over the weekend. At the time of my exam patient was on assist control tidal line 450, rate of 12, PEEP of 6 and 25% FiO2. Patient noted to be hyper glycemic and long-acting insulin was changed. 09/05: Patient continues to be unresponsive, Keppra was added for possible seizur e disorder yesterday. No family at the bedside, patient to go to hospice most likely on Sunday. 09/07; awaiting hospice placement, pending family's decision. Hyper kalemia, insulin and dextrose, IV calcium gluconate and Kayexalate Very poor prognosis, full CODE STATUS 09/08; clinically no change, patient remained intubated on ventilator support Ventilatory settings; AC, 450 tidal volume, FiO2 45%, PEEP 8, peak flow 60 Family considering hospice, pending decision 09/09; clinically no change, intubated on ventilatory support Severe anoxic brain injury, family still have to make the decision for hospice 09/10; surgery evaluation noted, surgery recommended trach and PEG The daughter refused, she is still considering hospice placement DC planning per case management 09/12/2019 Family agreed for DNR DNR orders placed Tests/imaging studies done so far: -08/29 CXR shows moderate enlargement of cardiac silhouette, diffuse bilateral mixed chest x-ray and airspace disease -08/30 CT C-spine shows no CT evidence of acute bony abnormality the cervical spine, biapical airspace disease -08/30 CT head/brain shows no CT evidence of acute intracranial hemorrhage, mild generalized parenchymal atrophy, no evidence of midline shift or mass-effect, moderate size right frontal scalp hematoma -08/30 CTA chest shows no pulmonary embolism, mildly enlarged heart, moderate sized pericardial effusion, diffuse bilateral mixed interstitial and airspace disease with associated atelectasis. -08/30 CT abdomen/pelvis with contrast shows mild fluid-filled distended stomach, dense atherosclerotic calcification of the abdominal aorta, multiple loops of moderately prominent fecalized small bowel, moderate amount of retained stool throughout the colon which may represent possible sequela impaction and constipation, multiple colonic diverticula, several calcified uterine fibroids, bibasilar mixed interstitial and airspace disease -08/30 bilateral lower extremity Doppler ultrasound shows no evidence of DVT in either lower extremity -08/30 CXR shows moderate bilateral lateral pulmonary opacities improvement -08/30 echocardiogram shows a small to moderate sized circumferential pericardial effusion, no tamponade, left ventricle systolic function normal, LVEF 55 to 60%, mild concentric LVH, trace MR, trace TR, no pulmonary hypertension -09/01 MRI brain showed diffuse restricted diffusion in the cerebral cortex consistent with global anoxic brain injury -08/31 EEG with slow wave findings History Interval history: Patient was evaluated by surgeon Dr. Kennedy, recommended trach and PEG Pending decision from family Mild drop in H&H, hemoglobin 6.5 We will transfuse 2 units of PRBC due to anemia and pending surgical procedure Patient remains intubated on ventilatory support Objective - Constitutional Vitals: Vital Signs - 12hr 09/11/20 09/11/20 09/11/20 19:51 20:00 20:30 Temperature Pulse Rate 59 L 57 L 59 L Pulse Rate [ 56 L From Monitor] Respiratory 17 18 Rate Blood Pressure 167/66 167/62 170/65 O2 Sat by Pulse 100 100 100 Oximetry 09/11/20 09/11/20 09/11/20 21:00 21:30 22:00 Temperature Pulse Rate 59 L 60 60 Pulse Rate [ From Monitor] Respiratory 16 17 15 Rate Blood Pressure 168/64 164/64 169/66 O2 Sat by Pulse 100 100 100 Oximetry 09/11/20 09/11/20 09/11/20 22:30 23:00 23:07 Temperature Pulse Rate 61 61 61 Pulse Rate [ From Monitor] Respiratory 15 15 Rate Blood Pressure 171/64 170/66 171/65 O2 Sat by Pulse 100 100 100 Oximetry 09/11/20 09/11/20 09/11/20 23:20 23:30 23:59 Temperature 97.3 F L Pulse Rate 61 61 Pulse Rate [ From Monitor] Respiratory 14 18 Rate Blood Pressure 170/64 168/66 O2 Sat by Pulse 100 100 Oximetry 09/12/20 09/12/20 09/12/20 00:00 00:30 01:00 Temperature Pulse Rate 59 L 55 L 54 L Pulse Rate [ 53 L From Monitor] Respiratory 13 18 18 Rate Blood Pressure 157/56 152/54 145/52 O2 Sat by Pulse 100 100 100 Oximetry 09/12/20 09/12/20 09/12/20 01:30 02:00 02:30 Temperature Pulse Rate 52 L 53 L 53 L Pulse Rate [ From Monitor] Respiratory 17 20 11 L Rate Blood Pressure 142/52 147/54 146/55 O2 Sat by Pulse 100 100 100 Oximetry 09/12/20 09/12/20 09/12/20 03:00 03:30 03:49 Temperature Pulse Rate 52 L 53 L 51 L Pulse Rate [ From Monitor] Respiratory 15 11 L Rate Blood Pressure 144/51 149/52 O2 Sat by Pulse 100 100 100 Oximetry 09/12/20 09/12/20 09/12/20 04:00 04:30 05:00 Temperature 97.8 F Pulse Rate 50 L 51 L 51 L Pulse Rate [ 51 L From Monitor] Respiratory 11 L 16 14 Rate Blood Pressure 149/52 149/52 149/52 O2 Sat by Pulse 100 100 100 Oximetry 09/12/20 09/12/20 09/12/20 06:08 06:11 07:19 Temperature 97.6 F Pulse Rate 56 L 51 L Pulse Rate [ From Monitor] Respiratory Rate Blood Pressure 147/82 118/49 O2 Sat by Pulse Oximetry General appearance: Present: no acute distress, well-nourished - EENT Eyes: PERRL, EOM intact ENT: hearing intact, clear oral mucosa Ears: bilateral: normal - Neck Neck: supple, normal ROM - Respiratory Respiratory effort: normal Respiratory: bilateral: CTA - Breasts Breasts: normal - Cardiovascular Heart rate: 78 Rhythm: regular Heart Sounds: Present: S1 & S2. Absent: gallop, rub Extremities: pulses intact, No edema, normal color, Full ROM - Gastrointestinal General gastrointestinal: Present: soft, non-tender, non-distended, normal bowel sounds - Genitourinary Female genitourinary: normal - Integumentary Integumentary: clear, warm, dry - Musculoskeletal Musculoskeletal: 1, strength equal bilaterally - Neurologic Neurologic: moves all extremities - Psychiatric Psychiatric: memory intact, appropriate mood/affect, intact judgment & insight - Labs CBC & Chem 7: 09/13/20 15:29 09/13/20 15:29 Labs: Abnormal lab results 09/11/20 09/11/20 09/11/20 Range/Units 10:13 11:51 15:18 POC Glucose 120 H 141 H 162 H (70-105) mg/dL 09/11/20 09/11/20 09/12/20 Range/Units 17:39 22:05 01:58 POC Glucose 139 H 162 H 172 H (70-105) mg/dL 09/12/20 Range/Units 05:20 POC Glucose 138 H (70-105) mg/dL HEART Score - HEART Score EKG: Normal Age: > 65 Troponin: Troponin T 0.085 ng/mL (0.00-0.029) H 08/30/20 00:15 Troponin: < normal limit - Critical Actions Critical Actions: 0-3 pts:0.9-1.7%risk of adverse cardiac event.Candidate for discharge
[2020-09-12] MEDS: INSULIN LISPRO 100 UNIT/ML SUB-Q SCH ×4 (07:48→20:50)
--- NOTE | 2020-09-12 07:54 | Progress Note ---
Assessment and Plan Assessment and Plan Assessment and plan: 65-year-old female with DM, HTN, HLD, ESRD on HD MWF, multiple myeloma s/p chemotherapy and stem cell transplant and current tobacco abuse was admitted through emergency room s/p out of the hospital cardiac arrest with anoxic encephalopathy, hypertensive emergency, multifocal pneumonia. COVID-19 was ruled out, patient remains intubated on ventilatory support, with very poor prognosis, family is considering hospice have not decided yet. Very poor prognosis. Patient is made DNR today. Hospice placement were discussed --Patient is hypotensive; Hold blood pressure medications, gentle hydration with fluid bolus monitor blood pressures. If no improvement consider vaso-pressors as needed --Hyperkalemia; potassium levels normal range Closely monitor electrolytes --COVID-19, ruled out --S/p outside the hospital cardiac arrest; Status post CPR per ACLS protocol Continue supportive care, cardiology following --Acute hypoxic respiratory failure/intubated on ventilatory support; Continue ventilator support, wean as tolerated, nebulizers, pulmonary following --Global/diffuse anoxic brain injury/encephalopathy as evidenced by MRI; 09/01/2020 Neurology evaluated the patient. Very poor prognosis, recommend palliative care --ESRD on HD; nephrology following, HD per schedule, HD is on hold in view of patient's family considering hospice --Pericardial effusion; stable --Severe cardiomegaly; Continue antifailure medications, diuretics, beta-blockers, BENJAMIN inhibitors Input output monitoring, cardiology following --Type II diabetes mellitus; Continue Accu-Chek sliding scale coverage tube feeding, long-acting insulin Lantus Tube feeding --Transaminitis; check LFTs, trend the levels --Hypertension; patient is hypotensive Hold antihypertensives , closely monitor --h/o Multiple myeloma: Patient follows with hematology oncologist at [facility] --Current tobacco abuse; --Possible seizure activity; continue Keppra Seizure precautions --Nutrition; tube feeding per protocol --Full CODE STATUS --DC planning per case management Family considering inpatient hospice admission, Pending decision.AND placed Consultants. Pulmonary critical care. Cardiology. Nephrology. Neurology. ID evaluations and recommendations Noted and appreciated DVT/GI prophylaxis: Subcu heparin, SCDs Protonix, Disposition: Hospice pending family decision' AND signed today The high probability of a clinically significant, sudden or life threatening det erioration of the [multi] system(s) required my full and direct attention, intervention and personal management. The aggregate critical care time was [35] minutes. This time is in addition to time spent performing reported procedures but includes the following: [x] Data Review and interpretation [x] Patient assessment and monitoring of vital signs [x] Documentation [x] Medication orders and management Subjective Date of service: 09/12/20 Principal diagnosis: Cardiac arrest; Ac. hypoxemic resp failure; PNA; ESRD; NSTE CA; Hyperkalemia Interval history: Brief history and daily hospital course This is 65-year-old female with diabetes mellitus, hypertension, hyperlipidemia, ESRD on HD MWF via left chest permacath, multiple myeloma s/p chemotherapy and stem cell transplant with right chest port, immature right upper extremity aVF and current tobacco abuse who presented to the emergency department on 08/30 s/p cardiac arrest after being found laying in driveway, unresponsive and in asystole by EMS after being called for shortness of breath. Patient was in tubated by EMS and received 3 mg epinephrine, calcium and serum bicarbonate and ROSC was eventually achieved after 10 minutes of resuscitation. Recommend emergency department revealed hyperkalemia, CXR showed moderate enlargement of cardiac silhouette, diffuse bilateral mixed interstitial and airspace disease with considerations to pulmonary edema or multifocal infectious process. Patient was admitted to the hospitalist service s/p cardiac arrest with anoxic encephalopathy, ESRD on HD, hypertensive emergency, multifocal pneumonia and a and has a COVID-19 PUI. CCM, nephrology, neurology infectious disease and cardiology were consulted. 08/30: This morning neurology was consulted, patient noted to have leukocytosis, hyperkalemia, metabolic acidosis and hyperglycemia. Patient had hyperph osphatemia, hypomagnesemia also. Patient had hemodialysis today per nephrology. COVID-19 PCR negative. Patient was in ED holding and admitted to the ICU later during the day. Patient is sedated on fentanyl and propofol. At the time my examination she was assist-control, rate of 28, tidal and 450, 60 PEEP and FiO2 of 60%. 08/31: Patient received hemodialysis however she is hyperkalemia again which was treated with dextrose, insulin and Kionex. Patient received hemodialysis again today per nephrology. Patient continues with with meropenem until blood cultures per infectious disease. MRI brain and EEG pending, lactulose discontinued (which was started due to large stool burden). We will follow up on cultures and BMP. Patient also noted to be hyperglycemic and was started on long acting insulin. Family updated at bedside by nurse mahmood and Dr. Garces. 09/01: Patient was noted to be hypertensive yesterday evening and today so cardiology will start the patient on a nitroglycerin drip and IV metoprolol. CCM reduced rate. Patient received hemodialysis today and scheduled for MRI brain. Patient noted to be hyperkalemic and follow-up BMP shows a potassium of 4. Patient's MRI brain showed diffuse anoxic brain injury and Dr. Garces updated the family at bedside. 09/02: Patient had an MRI brain yesterday which showed global anoxic brain injury. At the time of my examination patient was on PCV CPAP with tidal volume 450, FiO2 of 30. Patient is hyperglycemic and insulin dosage increased. Family decision has not been made, Dr. Silva and / Dez updated family. Neurology has signed off 09/03: Patient continues to be hypoglycemic and long-acting insulin dosage increased. She is receiving hemodialysis today. Patient has a referral to inpatient hospice. No acute events reported overnight. CM speaking to family re hospice. Cardio changed BP medications to PO. CCM to discuss goals of care and rT to rest daily on AC at night/continue CPAP trials during the day. 09/04: Patient was noted to have possible seizure activity and was given 2 mg of Ativan by CCM. Patient was later hypotensive tensive and received a 250 mL normal saline bolus which was communicated to nephrology. Per nephrology will like to avoid excessive fluid boluses to prevent issues with fluid overload over the weekend. At the time of my exam patient was on assist control tidal line 450, rate of 12, PEEP of 6 and 25% FiO2. Patient noted to be hyper glycemic and long-acting insulin was changed. 09/05: Patient continues to be unresponsive, Keppra was added for possible seizur e disorder yesterday. No family at the bedside, patient to go to hospice most likely on Sunday. 09/07; awaiting hospice placement, pending family's decision. Hyper kalemia, insulin and dextrose, IV calcium gluconate and Kayexalate Very poor prognosis, full CODE STATUS 09/08; clinically no change, patient remained intubated on ventilator support Ventilatory settings; AC, 450 tidal volume, FiO2 45%, PEEP 8, peak flow 60 Family considering hospice, pending decision 09/09; clinically no change, intubated on ventilatory support Severe anoxic brain injury, family still have to make the decision for hospice 09/10; surgery evaluation noted, surgery recommended trach and PEG The daughter refused, she is still considering hospice placement DC planning per case management 09/11/2020 Family gave permission for DNR Family to decide about hospice 09/12/2020 Family will decide about hospice today We will discuss with family again today Objective - Constitutional Vitals: Vital Signs - 12hr 09/11/20 09/11/20 09/11/20 20:00 20:30 21:00 Temperature Pulse Rate 57 L 59 L 59 L Pulse Rate [ 56 L From Monitor] Respiratory 17 18 16 Rate Blood Pressure 167/62 170/65 168/64 O2 Sat by Pulse 100 100 100 Oximetry 09/11/20 09/11/20 09/11/20 21:30 22:00 22:30 Temperature Pulse Rate 60 60 61 Pulse Rate [ From Monitor] Respiratory 17 15 15 Rate Blood Pressure 164/64 169/66 171/64 O2 Sat by Pulse 100 100 100 Oximetry 09/11/20 09/11/20 09/11/20 23:00 23:07 23:20 Temperature Pulse Rate 61 61 61 Pulse Rate [ From Monitor] Respiratory 15 14 Rate Blood Pressure 170/66 171/65 170/64 O2 Sat by Pulse 100 100 100 Oximetry 09/11/20 09/11/20 09/12/20 23:30 23:59 00:00 Temperature 97.3 F L Pulse Rate 61 59 L Pulse Rate [ 53 L From Monitor] Respiratory 18 13 Rate Blood Pressure 168/66 157/56 O2 Sat by Pulse 100 100 Oximetry 09/12/20 09/12/20 09/12/20 00:30 01:00 01:30 Temperature Pulse Rate 55 L 54 L 52 L Pulse Rate [ From Monitor] Respiratory 18 18 17 Rate Blood Pressure 152/54 145/52 142/52 O2 Sat by Pulse 100 100 100 Oximetry 09/12/20 09/12/20 09/12/20 02:00 02:30 03:00 Temperature Pulse Rate 53 L 53 L 52 L Pulse Rate [ From Monitor] Respiratory 20 11 L 15 Rate Blood Pressure 147/54 146/55 144/51 O2 Sat by Pulse 100 100 100 Oximetry 0609/12/20 09/12/20 03:30 03:49 04:00 Temperature 97.8 F Pulse Rate 53 L 51 L 50 L Pulse Rate [ 51 L From Monitor] Respiratory 11 L 11 L Rate Blood Pressure 149/52 149/52 O2 Sat by Pulse 100 100 100 Oximetry 09/12/20 09/12/20 09/12/20 04:30 05:00 06:08 Temperature Pulse Rate 51 L 51 L 56 L Pulse Rate [ From Monitor] Respiratory 16 14 Rate Blood Pressure 149/52 149/52 147/82 O2 Sat by Pulse 100 100 Oximetry 09/12/20 09/12/20 06:11 07:19 Temperature 97.6 F Pulse Rate 51 L Pulse Rate [ From Monitor] Respiratory Rate Blood Pressure 118/49 O2 Sat by Pulse Oximetry General appearance: Present: no acute distress, well-nourished - EENT Eyes: PERRL, EOM intact ENT: hearing intact, clear oral mucosa Ears: bilateral: normal - Neck Neck: supple, normal ROM - Respiratory Respiratory effort: normal Respiratory: bilateral: CTA - Breasts Breasts: normal - Cardiovascular Heart rate: 76 Rhythm: regular Heart Sounds: Present: S1 & S2. Absent: gallop, rub Extremities: pulses intact, No edema, normal color, Full ROM - Gastrointestinal General gastrointestinal: Present: soft, non-tender, non-distended, normal bowel sounds - Genitourinary Female genitourinary: normal - Integumentary Integumentary: clear, warm, dry - Musculoskeletal Musculoskeletal: other (Patient in comatose state) - Neurologic Neurologic: moves all extremities, other (Comatose) - Psychiatric Psychiatric: other (Comatose) - Labs CBC & Chem 7: 09/13/20 15:29 09/13/20 15:29 Labs: Abnormal lab results 09/11/20 09/11/20 09/11/20 Range/Units 10:13 11:51 15:18 POC Glucose 120 H 141 H 162 H (70-105) mg/dL 09/11/20 09/11/20 09/12/20 Range/Units 17:39 22:05 01:58 POC Glucose 139 H 162 H 172 H (70-105) mg/dL 09/12/20 Range/Units 05:20 POC Glucose 138 H (70-105) mg/dL HEART Score - HEART Score EKG: Normal Age: > 65 Troponin: Troponin T 0.085 ng/mL (0.00-0.029) H 08/30/20 00:15 Troponin: < normal limit - Critical Actions Critical Actions: 0-3 pts:0.9-1.7%risk of adverse cardiac event.Candidate for discharge
[2020-09-12] MEDS: SENNOSIDES/DOCUSATE SODIUM 8.6/50 MG TAB FEEDTUBE SCH ×2 (09:05→21:46)
[2020-09-12] MEDS: levETIRAcetam 500 MG/5 ML ORAL LIQD PO SCH ×2 (09:05→21:44)
[2020-09-12] MEDS: FAMOTIDINE 20 MG TAB PO SCH (09:05)
[2020-09-12] MEDS: amLODIPine 10 MG TAB PO SCH (09:06)
[2020-09-12] MEDS: INSULIN GLARGINE 100 UNITS/ML SUB-Q SCH (09:06)
--- NOTE | 2020-09-12 16:34 | Progress Note ---
Assessment and Plan Cardiac arrest with return of spontaneous circulation Acute hypoxemic respiratory failure Bilateral pneumonia, possibly aspiration Bilateral pulmonary edema End-stage renal disease, on dialysis NSTEMI Severe hyperkalemia History of multiple myeloma History of hypertension Anemia that is microcytic Elevated serum troponin (now to allow narural per next of kin) - tentatively for transfer to hospice care - continue care as below otherwise; - continue Daily SAT and SBT assessment as tolerated - continue to wean supplemental oxygen for target O2 sat's > 90% acutely - VAP bundle addressed - continue lung protective strategies - continue bronchodilators with pulmonary hygiene per RT - wean per pulmonary driven protocols otherwise - continue HD/UF for toxin and volume clearance (on hold now) - avoid nephrotoxins, renally dose all medications - continue accuchecks with glycemic control per SSI (While critically ill target blood glucose of 140-180 mg/dL; avoid hypoglycemia) - sedation prn for target RASS 0 to -1 - continue to avoid benzodiazepine's, reduce the possibility of delirium - complete AB's per ID rec's - prn analgesia per CPOT score - Maintenance of sleep-wake cycle, avoid delirium - continue enteral nutritional support at goal rate as tolerated - G.I. & VTE prophylaxis - PT/OT/ROM exercises - continue mobility protocols for pressure ulcer prophylaxis - Monitor hemodynamics closely - continue other care per attending / other consultants - discharge planning ongoing concurrently COVID SPECIFIC INTERVENTIONS - COVID PCR negative .... Re-evaluate in am & prn CONDITION: CRITICAL PROGNOSIS: GUARDED CODE STATUS: FULL CODE The high probability of a clinically significant, sudden or life-threatening deterioration of the [respiratory, cardiovascular, hematologic, renal & neurologic] system(s) required my full and direct attention, intervention and personal management. The aggregate critical care time was [32] minutes without overlap. Time includes spent on; [x] Data Review and interpretation [x] Patient assessment and monitoring of vital signs [x] Documentation [x] Medication orders and management Subjective Date of service: 09/12/20 Principal diagnosis: Cardiac arrest; Ac. hypoxemic resp failure; PNA; ESRD; NSTEMI; Hyperkalemia Interval history: Patient is seen today for: Cardiac arrest with ROSC; Acute hypoxemic respiratory failure; Aspiration Pneumonia; ESRD on dialysis; NSTEMI; Hyperkalemia Seen and examined at bedside; 24hour events reviewed; nursing and respiratory care staff consulted; no adverse overnight events reported to me; resting peacefully in bed; remains on MVS; still awaiting hospice transfer; failed be dside SBT Objective Vital Signs - 12hr 09/12/20 09/12/20 09/12/20 05:00 05:30 06:00 Temperature Pulse Rate 51 L 51 L 52 L Pulse Rate [ From Monitor] Respiratory 14 16 17 Rate Blood Pressure 149/52 149/52 149/52 O2 Sat by Pulse 100 100 100 Oximetry 09/12/20 09/12/20 09/12/20 06:08 06:11 06:30 Temperature Pulse Rate 56 L 51 L 51 L Pulse Rate [ From Monitor] Respiratory 17 Rate Blood Pressure 147/82 118/49 120/50 O2 Sat by Pulse 100 Oximetry 09/12/20 09/12/20 09/12/20 07:00 07:19 07:30 Temperature 97.6 F Pulse Rate 51 L 52 L Pulse Rate [ From Monitor] Respiratory 13 10 L Rate Blood Pressure 121/54 110/68 O2 Sat by Pulse 100 100 Oximetry 09/12/20 09/12/20 09/12/20 08:00 09:06 11:46 Temperature 97.5 F L Pulse Rate 53 L 52 L Pulse Rate [ 52 L From Monitor] Respiratory 15 Rate Blood Pressure 126/47 O2 Sat by Pulse 100 Oximetry 09/12/20 09/12/20 09/12/20 12:00 15:41 16:00 Temperature 99.4 F Pulse Rate 56 L 58 L Pulse Rate [ From Monitor] Respiratory Rate Blood Pressure 134/47 143/55 O2 Sat by Pulse 100 100 Oximetry Constitutional: no acute distress, other (elderly female riding set rate at rest on MVS) Eyes: non-icteric ENT: oropharynx moist, other (ETT 23 cm COLLEEN) Neck: supple, no lymphadenopathy, no JVD Effort: normal Ascultation: Bilateral: rhonchi Percussion: Bilateral: not dull Cardiovascular: regular rate and rhythm, other (S1,S2) Gastrointestinal: normoactive bowel sounds, soft, non-tender, non-distended Integumentary: normal Extremities: no cyanosis, pulses normal, no ischemia or petechiae Neurologic: pupils equal and round (dilated), other (unresponsive, not obeying commands) Psychiatric: other (unable to assess re: AMS) CBC and BMP: 09/13/20 15:29 09/13/20 15:29 ABG, PT/INR, D-dimer: ABG ABG pH 7.381 (7.320-7.450) 09/10/20 03:07 POC ABG pCO2 38.3 mmHg (32.0-48.0) 09/10/20 03:07 ABG pCO2 38.0 mm Hg 09/02/20 03:40 POC ABG pO2 63.5 mmHg (83-108) L 09/10/20 03:07 ABG pO2 83.1 mm Hg (80.0-90.0) 09/02/20 03:40 POC ABG HCO3 22.2 09/10/20 03:07 ABG O2 Saturation 89.5 (0-100) 09/10/20 03:07 PT/INR, D-dimer PT 12.8 Sec. (12.2-14.9) 08/31/20 05:45 INR 0.90 (0.87-1.13) 08/31/20 05:45 D-Dimer > 52119 ng/mlDDU (0-234) H 08/30/20 03:10 Abnormal lab findings: Abnormal Labs 08/30/20 08/30/20 08/30/20 00:14 00:15 00:15 WBC RBC 2.83 L Hgb 9.8 L Hct MCV 112 H MCH 35 H RDW 19.9 H Plt Count 95 L Lymph % (Auto) [place] % (Auto) Lymph # (Auto) Seg Neutrophils % Seg Neuts % (Manual) Lymphocytes % (Manual) Nucleated RBC % 1.0 H Seg Neutrophils # Seg Neutrophils # Man Lymphocytes # (Manual) D-Dimer ABG pH 7.199 L POC ABG pCO2 49.3 H POC ABG pO2 ABG HCO3 ABG Base Excess ABG Hemoglobin 11.9 L ABG Oxyhemoglobin 93.0 L ABG Sodium ABG Potassium 6.9 H ABG Chloride ABG Glucose 158 H Oxyhemoglobin Carboxyhemoglobin 2.8 H Sodium Potassium 7.0 H* Chloride Carbon Dioxide 18 L BUN 68 H Creatinine 8.3 H Glucose 174 H POC Glucose Calcium Phosphorus Magnesium Ferritin AST 68 H Alkaline Phosphatase 414 H Lactate Dehydrogenase Troponin T 0.085 H Total Protein 5.6 L Albumin 3.4 L HDL Cholesterol 66 H Arterial Blood Glucose 158 H Arterial Blood Ionized Calcium Crossmatch 08/30/20 08/30/20 08/30/20 00:15 00:15 03:10 WBC RBC Hgb Hct MCV MCH RDW Plt Count Lymph % (Auto) [place] % (Auto) Lymph # (Auto) Seg Neutrophils % Seg Neuts % (Manual) Lymphocytes % (Manual) Nucleated RBC % Seg Neutrophils # Seg Neutrophils # Man Lymphocytes # (Manual) D-Dimer 6083.16 H > 16570 H ABG pH POC ABG pCO2 POC ABG pO2 ABG HCO3 ABG Base Excess ABG Hemoglobin ABG Oxyhemoglobin ABG Sodium ABG Potassium ABG Chloride ABG Glucose Oxyhemoglobin Carboxyhemoglobin Sodium Potassium Chloride Carbon Dioxide BUN Creatinine Glucose POC Glucose Calcium Phosphorus 11.50 H Magnesium 3.80 H Ferritin AST Alkaline Phosphatase Lactate Dehydrogenase Troponin T Total Protein Albumin HDL Cholesterol Arterial Blood Glucose Arterial Blood Ionized Calcium Crossmatch 08/30/20 08/30/20 08/30/20 03:10 03:10 04:49 WBC RBC Hgb Hct MCV MCH RDW Plt Count Lymph % (Auto) [place] % (Auto) Lymph # (Auto) Seg Neutrophils % Seg Neuts % (Manual) Lymphocytes % (Manual) Nucleated RBC % Seg Neutrophils # Seg Neutrophils # Man Lymphocytes # (Manual) D-Dimer ABG pH POC ABG pCO2 POC ABG pO2 ABG HCO3 ABG Base Excess ABG Hemoglobin 10.8 L ABG Oxyhemoglobin ABG Sodium ABG Potassium 6.7 H ABG Chloride ABG Glucose 137 H Oxyhemoglobin Carboxyhemoglobin Sodium Potassium Chloride Carbon Dioxide BUN Creatinine Glucose 126 H POC Glucose Calcium Phosphorus Magnesium Ferritin 830.0 H AST Alkaline Phosphatase Lactate Dehydrogenase 400 H Troponin T Total Protein Albumin HDL Cholesterol Arterial Blood Glucose 137 H Arterial Blood Ionized Calcium 4.5 L Crossmatch 08/30/20 08/30/20 08/30/20 07:13 15:03 15:03 WBC 17.2 H RBC 3.23 L Hgb Hct MCV 108 H MCH 34 H RDW 19.4 H Plt Count 90 L Lymph % (Auto) [place] % (Auto) Lymph # (Auto) Seg Neutrophils % Seg Neuts % (Manual) Lymphocytes % (Manual) Nucleated RBC % Seg Neutrophils # Seg Neutrophils # Man Lymphocytes # (Manual) D-Dimer ABG pH POC ABG pCO2 POC ABG pO2 ABG HCO3 ABG Base Excess ABG Hemoglobin ABG Oxyhemoglobin ABG Sodium ABG Potassium ABG Chloride ABG Glucose Oxyhemoglobin Carboxyhemoglobin Sodium Potassium 8.2 H* 6.5 H* D Chloride 96.7 L Carbon Dioxide 21 L BUN 52 H Creatinine 5.7 H Glucose 220 H POC Glucose Calcium Phosphorus Magnesium Ferritin AST 68 H Alkaline Phosphatase 364 H Lactate Dehydrogenase Troponin T Total Protein Albumin 3.7 L HDL Cholesterol Arterial Blood Glucose Arterial Blood Ionized Calcium Crossmatch 08/30/20 08/30/20 08/31/20 17:27 21:03 04:07 WBC RBC Hgb Hct MCV MCH RDW Plt Count Lymph % (Auto) [place] % (Auto) Lymph # (Auto) Seg Neutrophils % Seg Neuts % (Manual) Lymphocytes % (Manual) Nucleated RBC % Seg Neutrophils # Seg Neutrophils # Man Lymphocytes # (Manual) D-Dimer ABG pH 7.498 H POC ABG pCO2 27.9 L POC ABG pO2 126.9 H ABG HCO3 ABG Base Excess ABG Hemoglobin 10.1 L ABG Oxyhemoglobin 98.3 H ABG Sodium 134.3 L ABG Potassium 6.7 H ABG Chloride ABG Glucose 261 H Oxyhemoglobin Carboxyhemoglobin 0.1 L Sodium Potassium Chloride Carbon Dioxide BUN Creatinine Glucose POC Glucose 223 H 230 H Calcium Phosphorus Magnesium Ferritin AST Alkaline Phosphatase Lactate Dehydrogenase Troponin T Total Protein Albumin HDL Cholesterol Arterial Blood Glucose 261 H Arterial Blood Ionized Calcium 3.6 L Crossmatch 08/31/20 08/31/20 08/31/20 05:01 05:45 05:45 WBC 13.1 H RBC 2.83 L Hgb 9.6 L Hct 29.8 L MCV 105 H MCH 34 H RDW 18.9 H Plt Count 88 L Lymph % (Auto) 6.[address] [place] % (Auto) Lymph # (Auto) 0.9 L Seg Neutrophils % 87.8 H Seg Neuts % (Manual) Lymphocytes % (Manual) Nucleated RBC % Seg Neutrophils # 11.5 H Seg Neutrophils # Man Lymphocytes # (Manual) D-Dimer ABG pH POC ABG pCO2 POC ABG pO2 ABG HCO3 ABG Base Excess ABG Hemoglobin ABG Oxyhemoglobin ABG Sodium ABG Potassium ABG Chloride ABG Glucose Oxyhemoglobin Carboxyhemoglobin Sodium Potassium 7.1 H* Chloride 96.7 L Carbon Dioxide BUN 74 H Creatinine 7.0 H Glucose 254 H POC Glucose 256 H Calcium 7.6 L Phosphorus Magnesium Ferritin AST Alkaline Phosphatase Lactate Dehydrogenase Troponin T Total Protein Albumin HDL Cholesterol Arterial Blood Glucose Arterial Blood Ionized Calcium Crossmatch 08/31/20 08/31/20 09/01/20 11:38 23:31 03:13 WBC RBC Hgb Hct MCV MCH RDW Plt Count Lymph % (Auto) [place] % (Auto) Lymph # (Auto) Seg Neutrophils % Seg Neuts % (Manual) Lymphocytes % (Manual) Nucleated RBC % Seg Neutrophils # Seg Neutrophils # Man Lymphocytes # (Manual) D-Dimer ABG pH 7.519 H POC ABG pCO2 POC ABG pO2 ABG HCO3 ABG Base Excess ABG Hemoglobin 9.3 L ABG Oxyhemoglobin ABG Sodium 134.7 L ABG Potassium ABG Chloride 94.0 L ABG Glucose 441 H Oxyhemoglobin Carboxyhemoglobin Sodium Potassium Chloride Carbon Dioxide BUN Creatinine Glucose POC Glucose 294 H 426 H Calcium Phosphorus Magnesium Ferritin AST Alkaline Phosphatase Lactate Dehydrogenase Troponin T Total Protein Albumin HDL Cholesterol Arterial Blood Glucose 441 H Arterial Blood Ionized Calcium 3.8 L Crossmatch 09/01/20 09/01/20 09/01/20 05:20 10:32 11:45 WBC RBC Hgb Hct MCV MCH RDW Plt Count Lymph % (Auto) [place] % (Auto) Lymph # (Auto) Seg Neutrophils % Seg Neuts % (Manual) Lymphocytes % (Manual) Nucleated RBC % Seg Neutrophils # Seg Neutrophils # Man Lymphocytes # (Manual) D-Dimer ABG pH POC ABG pCO2 POC ABG pO2 ABG HCO3 ABG Base Excess ABG Hemoglobin ABG Oxyhemoglobin ABG Sodium ABG Potassium ABG Chloride ABG Glucose Oxyhemoglobin Carboxyhemoglobin Sodium Potassium Chloride Carbon Dioxide BUN Creatinine Glucose POC Glucose 422 H 227 H 203 H Calcium Phosphorus Magnesium Ferritin AST Alkaline Phosphatase Lactate Dehydrogenase Troponin T Total Protein Albumin HDL Cholesterol Arterial Blood Glucose Arterial Blood Ionized Calcium Crossmatch 09/01/20 09/01/20 09/01/20 13:34 17:11 17:29 WBC RBC Hgb Hct MCV MCH RDW Plt Count Lymph % (Auto) [place] % (Auto) Lymph # (Auto) Seg Neutrophils % Seg Neuts % (Manual) Lymphocytes % (Manual) Nucleated RBC % Seg Neutrophils # Seg Neutrophils # Man Lymphocytes # (Manual) D-Dimer ABG pH POC ABG pCO2 POC ABG pO2 ABG HCO3 ABG Base Excess ABG Hemoglobin ABG Oxyhemoglobin ABG Sodium ABG Potassium ABG Chloride ABG Glucose Oxyhemoglobin Carboxyhemoglobin Sodium Potassium Chloride 94.5 L Carbon Dioxide BUN 29 H Creatinine 3.4 H D Glucose 241 H POC Glucose 212 H 198 H Calcium 8.2 L Phosphorus Magnesium Ferritin AST Alkaline Phosphatase Lactate Dehydrogenase Troponin T Total Protein Albumin HDL Cholesterol Arterial Blood Glucose Arterial Blood Ionized Calcium Crossmatch 09/01/20 09/02/20 09/02/20 21:33 03:08 03:40 WBC RBC Hgb Hct MCV MCH RDW Plt Count Lymph % (Auto) [place] % (Auto) Lymph # (Auto) Seg Neutrophils % Seg Neuts % (Manual) Lymphocytes % (Manual) Nucleated RBC % Seg Neutrophils # Seg Neutrophils # Man Lymphocytes # (Manual) D-Dimer ABG pH 7.506 H POC ABG pCO2 POC ABG pO2 ABG HCO3 29.4 H ABG Base Excess 5.9 H ABG Hemoglobin 8.3 L ABG Oxyhemoglobin ABG Sodium ABG Potassium ABG Chloride ABG Glucose Oxyhemoglobin 94.8 L Carboxyhemoglobin Sodium Potassium Chloride Carbon Dioxide BUN Creatinine Glucose POC Glucose 188 H 179 H Calcium Phosphorus Magnesium Ferritin AST Alkaline Phosphatase Lactate Dehydrogenase Troponin T Total Protein Albumin HDL Cholesterol Arterial Blood Glucose Arterial Blood Ionized Calcium Crossmatch 09/02/20 09/02/20 09/02/20 05:55 07:12 09:28 WBC RBC Hgb Hct MCV MCH RDW Plt Count Lymph % (Auto) [place] % (Auto) Lymph # (Auto) Seg Neutrophils % Seg Neuts % (Manual) Lymphocytes % (Manual) Nucleated RBC % Seg Neutrophils # Seg Neutrophils # Man Lymphocytes # (Manual) D-Dimer ABG pH POC ABG pCO2 POC ABG pO2 ABG HCO3 ABG Base Excess ABG Hemoglobin ABG Oxyhemoglobin ABG Sodium ABG Potassium ABG Chloride ABG Glucose Oxyhemoglobin Carboxyhemoglobin Sodium 136 L Potassium Chloride 91.6 L Carbon Dioxide BUN 52 H Creatinine 5.5 H D Glucose 176 H POC Glucose 185 H 196 H Calcium 7.7 L Phosphorus Magnesium Ferritin AST Alkaline Phosphatase Lactate Dehydrogenase Troponin T Total Protein Albumin HDL Cholesterol Arterial Blood Glucose Arterial Blood Ionized Calcium Crossmatch 09/02/20 09/02/20 09/02/20 11:06 13:03 17:22 WBC RBC Hgb Hct MCV MCH RDW Plt Count Lymph % (Auto) [place] % (Auto) Lymph # (Auto) Seg Neutrophils % Seg Neuts % (Manual) Lymphocytes % (Manual) Nucleated RBC % Seg Neutrophils # Seg Neutrophils # Man Lymphocytes # (Manual) D-Dimer ABG pH POC ABG pCO2 POC ABG pO2 ABG HCO3 ABG Base Excess ABG Hemoglobin ABG Oxyhemoglobin ABG Sodium ABG Potassium ABG Chloride ABG Glucose Oxyhemoglobin Carboxyhemoglobin Sodium Potassium Chloride Carbon Dioxide BUN Creatinine Glucose POC Glucose 224 H 252 H 196 H Calcium Phosphorus Magnesium Ferritin AST Alkaline Phosphatase Lactate Dehydrogenase Troponin T Total Protein Albumin HDL Cholesterol Arterial Blood Glucose Arterial Blood Ionized Calcium Crossmatch 09/02/20 09/03/20 09/03/20 21:13 02:02 04:12 WBC RBC Hgb Hct MCV MCH RDW Plt Count Lymph % (Auto) [place] % (Auto) Lymph # (Auto) Seg Neutrophils % Seg Neuts % (Manual) Lymphocytes % (Manual) Nucleated RBC % Seg Neutrophils # Seg Neutrophils # Man Lymphocytes # (Manual) D-Dimer ABG pH POC ABG pCO2 POC ABG pO2 ABG HCO3 ABG Base Excess ABG Hemoglobin ABG Oxyhemoglobin ABG Sodium ABG Potassium ABG Chloride ABG Glucose Oxyhemoglobin Carboxyhemoglobin Sodium 136 L Potassium Chloride 90.3 L Carbon Dioxide BUN 79 H Creatinine 8.1 H Glucose 223 H POC Glucose 204 H 205 H Calcium 7.1 L Phosphorus Magnesium Ferritin AST Alkaline Phosphatase Lactate Dehydrogenase Troponin T Total Protein Albumin HDL Cholesterol Arterial Blood Glucose Arterial Blood Ionized Calcium Crossmatch 09/03/20 09/03/20 09/03/20 04:12 05:35 09:28 WBC RBC 2.35 L Hgb 8.3 L Hct 25.1 L MCV 107 H MCH 35 H RDW 18.5 H Plt Count 87 L Lymph % (Auto) [place] % (Auto) Lymph # (Auto) Seg Neutrophils % Seg Neuts % (Manual) Lymphocytes % (Manual) Nucleated RBC % Seg Neutrophils # Seg Neutrophils # Man Lymphocytes # (Manual) D-Dimer ABG pH POC ABG pCO2 POC ABG pO2 ABG HCO3 ABG Base Excess ABG Hemoglobin ABG Oxyhemoglobin ABG Sodium ABG Potassium ABG Chloride ABG Glucose Oxyhemoglobin Carboxyhemoglobin Sodium Potassium Chloride Carbon Dioxide BUN Creatinine Glucose POC Glucose 219 H 202 H Calcium Phosphorus Magnesium Ferritin AST Alkaline Phosphatase Lactate Dehydrogenase Troponin T Total Protein Albumin HDL Cholesterol Arterial Blood Glucose Arterial Blood Ionized Calcium Crossmatch 09/03/20 09/03/20 09/03/20 11:36 13:41 16:56 WBC RBC Hgb Hct MCV MCH RDW Plt Count Lymph % (Auto) [place] % (Auto) Lymph # (Auto) Seg Neutrophils % Seg Neuts % (Manual) Lymphocytes % (Manual) Nucleated RBC % Seg Neutrophils # Seg Neutrophils # Man Lymphocytes # (Manual) D-Dimer ABG pH POC ABG pCO2 POC ABG pO2 ABG HCO3 ABG Base Excess ABG Hemoglobin ABG Oxyhemoglobin ABG Sodium ABG Potassium ABG Chloride ABG Glucose Oxyhemoglobin Carboxyhemoglobin Sodium Potassium Chloride Carbon Dioxide BUN Creatinine Glucose POC Glucose 216 H 224 H 298 H Calcium Phosphorus Magnesium Ferritin AST Alkaline Phosphatase Lactate Dehydrogenase Troponin T Total Protein Albumin HDL Cholesterol Arterial Blood Glucose Arterial Blood Ionized Calcium Crossmatch 09/03/20 09/04/20 09/04/20 20:49 00:23 05:28 WBC RBC Hgb Hct MCV MCH RDW Plt Count Lymph % (Auto) [place] % (Auto) Lymph # (Auto) Seg Neutrophils % Seg Neuts % (Manual) Lymphocytes % (Manual) Nucleated RBC % Seg Neutrophils # Seg Neutrophils # Man Lymphocytes # (Manual) D-Dimer ABG pH POC ABG pCO2 POC ABG pO2 ABG HCO3 ABG Base Excess ABG Hemoglobin ABG Oxyhemoglobin ABG Sodium ABG Potassium ABG Chloride ABG Glucose Oxyhemoglobin Carboxyhemoglobin Sodium Potassium Chloride Carbon Dioxide BUN Creatinine Glucose POC Glucose 228 H 228 H 283 H Calcium Phosphorus Magnesium Ferritin AST Alkaline Phosphatase Lactate Dehydrogenase Troponin T Total Protein Albumin HDL Cholesterol Arterial Blood Glucose Arterial Blood Ionized Calcium Crossmatch 09/04/20 09/04/20 09/04/20 10:03 17:39 21:45 WBC RBC Hgb Hct MCV MCH RDW Plt Count Lymph % (Auto) [place] % (Auto) Lymph # (Auto) Seg Neutrophils % Seg Neuts % (Manual) Lymphocytes % (Manual) Nucleated RBC % Seg Neutrophils # Seg Neutrophils # Man Lymphocytes # (Manual) D-Dimer ABG pH POC ABG pCO2 POC ABG pO2 ABG HCO3 ABG Base Excess ABG Hemoglobin ABG Oxyhemoglobin ABG Sodium ABG Potassium ABG Chloride ABG Glucose Oxyhemoglobin Carboxyhemoglobin Sodium Potassium Chloride Carbon Dioxide BUN Creatinine Glucose POC Glucose 159 H 128 H 213 H Calcium Phosphorus Magnesium Ferritin AST Alkaline Phosphatase Lactate Dehydrogenase Troponin T Total Protein Albumin HDL Cholesterol Arterial Blood Glucose Arterial Blood Ionized Calcium Crossmatch 09/05/20 09/05/20 09/05/20 02:04 05:33 09:25 WBC RBC Hgb Hct MCV MCH RDW Plt Count Lymph % (Auto) [place] % (Auto) Lymph # (Auto) Seg Neutrophils % Seg Neuts % (Manual) Lymphocytes % (Manual) Nucleated RBC % Seg Neutrophils # Seg Neutrophils # Man Lymphocytes # (Manual) D-Dimer ABG pH POC ABG pCO2 POC ABG pO2 ABG HCO3 ABG Base Excess ABG Hemoglobin ABG Oxyhemoglobin ABG Sodium ABG Potassium ABG Chloride ABG Glucose Oxyhemoglobin Carboxyhemoglobin Sodium Potassium Chloride Carbon Dioxide BUN Creatinine Glucose POC Glucose 178 H 177 H 199 H Calcium Phosphorus Magnesium Ferritin AST Alkaline Phosphatase Lactate Dehydrogenase Troponin T Total Protein Albumin HDL Cholesterol Arterial Blood Glucose Arterial Blood Ionized Calcium Crossmatch 09/05/20 09/05/20 09/05/20 13:26 16:47 21:40 WBC RBC Hgb Hct MCV MCH RDW Plt Count Lymph % (Auto) [place] % (Auto) Lymph # (Auto) Seg Neutrophils % Seg Neuts % (Manual) Lymphocytes % (Manual) Nucleated RBC % Seg Neutrophils # Seg Neutrophils # Man Lymphocytes # (Manual) D-Dimer ABG pH POC ABG pCO2 POC ABG pO2 ABG HCO3 ABG Base Excess ABG Hemoglobin ABG Oxyhemoglobin ABG Sodium ABG Potassium ABG Chloride ABG Glucose Oxyhemoglobin Carboxyhemoglobin Sodium Potassium Chloride Carbon Dioxide BUN Creatinine Glucose POC Glucose 136 H 141 H 131 H Calcium Phosphorus Magnesium Ferritin AST Alkaline Phosphatase Lactate Dehydrogenase Troponin T Total Protein Albumin HDL Cholesterol Arterial Blood Glucose Arterial Blood Ionized Calcium Crossmatch 09/06/20 09/06/20 09/06/20 03:16 05:20 07:39 WBC RBC Hgb Hct MCV MCH RDW Plt Count Lymph % (Auto) [place] % (Auto) Lymph # (Auto) Seg Neutrophils % Seg Neuts % (Manual) Lymphocytes % (Manual) Nucleated RBC % Seg Neutrophils # Seg Neutrophils # Man Lymphocytes # (Manual) D-Dimer ABG pH POC ABG pCO2 POC ABG pO2 66.8 L ABG HCO3 ABG Base Excess ABG Hemoglobin 9.3 L ABG Oxyhemoglobin 89.9 L ABG Sodium 130.5 L ABG Potassium 5.1 H ABG Chloride 91.0 L ABG Glucose 224 H Oxyhemoglobin Carboxyhemoglobin Sodium Potassium Chloride Carbon Dioxide BUN Creatinine Glucose POC Glucose 112 H 163 H Calcium Phosphorus Magnesium Ferritin AST Alkaline Phosphatase Lactate Dehydrogenase Troponin T Total Protein Albumin HDL Cholesterol Arterial Blood Glucose 224 H Arterial Blood Ionized Calcium 3.8 L Crossmatch 09/06/20 09/06/20 09/06/20 09:30 15:27 17:57 WBC RBC Hgb Hct MCV MCH RDW Plt Count Lymph % (Auto) [place] % (Auto) Lymph # (Auto) Seg Neutrophils % Seg Neuts % (Manual) Lymphocytes % (Manual) Nucleated RBC % Seg Neutrophils # Seg Neutrophils # Man Lymphocytes # (Manual) D-Dimer ABG pH POC ABG pCO2 POC ABG pO2 ABG HCO3 ABG Base Excess ABG Hemoglobin ABG Oxyhemoglobin ABG Sodium ABG Potassium ABG Chloride ABG Glucose Oxyhemoglobin Carboxyhemoglobin Sodium Potassium Chloride Carbon Dioxide BUN Creatinine Glucose POC Glucose 236 H 166 H 130 H Calcium Phosphorus Magnesium Ferritin AST Alkaline Phosphatase Lactate Dehydrogenase Troponin T Total Protein Albumin HDL Cholesterol Arterial Blood Glucose Arterial Blood Ionized Calcium Crossmatch 09/06/20 09/07/20 09/07/20 22:21 03:28 04:00 WBC RBC Hgb Hct MCV MCH RDW Plt Count Lymph % (Auto) [place] % (Auto) Lymph # (Auto) Seg Neutrophils % Seg Neuts % (Manual) Lymphocytes % (Manual) Nucleated RBC % Seg Neutrophils # Seg Neutrophils # Man Lymphocytes # (Manual) D-Dimer ABG pH POC ABG pCO2 POC ABG pO2 62.2 L ABG HCO3 ABG Base Excess ABG Hemoglobin 8.0 L ABG Oxyhemoglobin 87.8 L ABG Sodium 127.3 L ABG Potassium 5.7 H ABG Chloride 89.0 L ABG Glucose 232 H Oxyhemoglobin Carboxyhemoglobin Sodium Potassium Chloride Carbon Dioxide BUN Creatinine Glucose POC Glucose 154 H 183 H Calcium Phosphorus Magnesium Ferritin AST Alkaline Phosphatase Lactate Dehydrogenase Troponin T Total Protein Albumin HDL Cholesterol Arterial Blood Glucose 232 H Arterial Blood Ionized Calcium 3.7 L Crossmatch 09/07/20 09/07/20 09/07/20 04:12 04:12 05:45 WBC RBC 2.32 L Hgb 7.9 L Hct 24.0 L MCV 104 H MCH 34 H RDW 17.7 H Plt Count 116 L Lymph % (Auto) 8.[address] [place] % (Auto) 9.0 H Lymph # (Auto) 0.7 L Seg Neutrophils % 81.3 H Seg Neuts % (Manual) Lymphocytes % (Manual) Nucleated RBC % Seg Neutrophils # Seg Neutrophils # Man Lymphocytes # (Manual) D-Dimer ABG pH POC ABG pCO2 POC ABG pO2 ABG HCO3 ABG Base Excess ABG Hemoglobin ABG Oxyhemoglobin ABG Sodium ABG Potassium ABG Chloride ABG Glucose Oxyhemoglobin Carboxyhemoglobin Sodium 133 L Potassium 6.2 H* D Chloride 85.8 L Carbon Dioxide BUN 132 H Creatinine 9.8 H Glucose 227 H POC Glucose 223 H Calcium 7.9 L Phosphorus Magnesium Ferritin AST Alkaline Phosphatase Lactate Dehydrogenase Troponin T Total Protein Albumin HDL Cholesterol Arterial Blood Glucose Arterial Blood Ionized Calcium Crossmatch 09/07/20 09/07/20 09/07/20 07:49 11:48 18:13 WBC RBC Hgb Hct MCV MCH RDW Plt Count Lymph % (Auto) [place] % (Auto) Lymph # (Auto) Seg Neutrophils % Seg Neuts % (Manual) Lymphocytes % (Manual) Nucleated RBC % Seg Neutrophils # Seg Neutrophils # Man Lymphocytes # (Manual) D-Dimer ABG pH POC ABG pCO2 POC ABG pO2 ABG HCO3 ABG Base Excess ABG Hemoglobin ABG Oxyhemoglobin ABG Sodium ABG Potassium ABG Chloride ABG Glucose Oxyhemoglobin Carboxyhemoglobin Sodium Potassium Chloride Carbon Dioxide BUN Creatinine Glucose POC Glucose 281 H 169 H 162 H Calcium Phosphorus Magnesium Ferritin AST Alkaline Phosphatase Lactate Dehydrogenase Troponin T Total Protein Albumin HDL Cholesterol Arterial Blood Glucose Arterial Blood Ionized Calcium Crossmatch 09/07/20 09/08/20 09/08/20 20:53 01:07 05:49 WBC RBC Hgb Hct MCV MCH RDW Plt Count Lymph % (Auto) [place] % (Auto) Lymph # (Auto) Seg Neutrophils % Seg Neuts % (Manual) Lymphocytes % (Manual) Nucleated RBC % Seg Neutrophils # Seg Neutrophils # Man Lymphocytes # (Manual) D-Dimer ABG pH POC ABG pCO2 POC ABG pO2 ABG HCO3 ABG Base Excess ABG Hemoglobin ABG Oxyhemoglobin ABG Sodium ABG Potassium ABG Chloride ABG Glucose Oxyhemoglobin Carboxyhemoglobin Sodium Potassium Chloride Carbon Dioxide BUN Creatinine Glucose POC Glucose 205 H 180 H 186 H Calcium Phosphorus Magnesium Ferritin AST Alkaline Phosphatase Lactate Dehydrogenase Troponin T Total Protein Albumin HDL Cholesterol Arterial Blood Glucose Arterial Blood Ionized Calcium Crossmatch 09/08/20 09/08/20 09/08/20 11:44 13:56 17:31 WBC RBC Hgb Hct MCV MCH RDW Plt Count Lymph % (Auto) [place] % (Auto) Lymph # (Auto) Seg Neutrophils % Seg Neuts % (Manual) Lymphocytes % (Manual) Nucleated RBC % Seg Neutrophils # Seg Neutrophils # Man Lymphocytes # (Manual) D-Dimer ABG pH POC ABG pCO2 POC ABG pO2 150.6 H ABG HCO3 ABG Base Excess ABG Hemoglobin 6.6 L ABG Oxyhemoglobin ABG Sodium 133.2 L ABG Potassium ABG Chloride 90.0 L ABG Glucose 173 H Oxyhemoglobin Carboxyhemoglobin Sodium Potassium Chloride Carbon Dioxide BUN Creatinine Glucose POC Glucose 164 H 160 H Calcium Phosphorus Magnesium Ferritin AST Alkaline Phosphatase Lactate Dehydrogenase Troponin T Total Protein Albumin HDL Cholesterol Arterial Blood Glucose 173 H Arterial Blood Ionized Calcium 3.5 L Crossmatch 09/08/20 09/09/20 09/09/20 19:19 02:39 03:43 WBC RBC Hgb Hct MCV MCH RDW Plt Count Lymph % (Auto) [place] % (Auto) Lymph # (Auto) Seg Neutrophils % Seg Neuts % (Manual) Lymphocytes % (Manual) Nucleated RBC % Seg Neutrophils # Seg Neutrophils # Man Lymphocytes # (Manual) D-Dimer ABG pH POC ABG pCO2 POC ABG pO2 58.6 L ABG HCO3 ABG Base Excess ABG Hemoglobin 6.8 L ABG Oxyhemoglobin 84.7 L ABG Sodium 131.6 L ABG Potassium ABG Chloride 88.0 L ABG Glucose 214 H Oxyhemoglobin Carboxyhemoglobin Sodium Potassium Chloride Carbon Dioxide BUN Creatinine Glucose POC Glucose 160 H 201 H Calcium Phosphorus Magnesium Ferritin AST Alkaline Phosphatase Lactate Dehydrogenase Troponin T Total Protein Albumin HDL Cholesterol Arterial Blood Glucose 214 H Arterial Blood Ionized Calcium 3.3 L Crossmatch 09/09/20 09/09/20 09/09/20 05:55 09:52 14:20 WBC RBC Hgb Hct MCV MCH RDW Plt Count Lymph % (Auto) [place] % (Auto) Lymph # (Auto) Seg Neutrophils % Seg Neuts % (Manual) Lymphocytes % (Manual) Nucleated RBC % Seg Neutrophils # Seg Neutrophils # Man Lymphocytes # (Manual) D-Dimer ABG pH POC ABG pCO2 POC ABG pO2 ABG HCO3 ABG Base Excess ABG Hemoglobin ABG Oxyhemoglobin ABG Sodium ABG Potassium ABG Chloride ABG Glucose Oxyhemoglobin Carboxyhemoglobin Sodium Potassium Chloride Carbon Dioxide BUN Creatinine Glucose POC Glucose 190 H 159 H 161 H Calcium Phosphorus Magnesium Ferritin AST Alkaline Phosphatase Lactate Dehydrogenase Troponin T Total Protein Albumin HDL Cholesterol Arterial Blood Glucose Arterial Blood Ionized Calcium Crossmatch 09/09/20 09/10/20 09/10/20 17:45 02:10 03:07 WBC RBC Hgb Hct MCV MCH RDW Plt Count Lymph % (Auto) [place] % (Auto) Lymph # (Auto) Seg Neutrophils % Seg Neuts % (Manual) Lymphocytes % (Manual) Nucleated RBC % Seg Neutrophils # Seg Neutrophils # Man Lymphocytes # (Manual) D-Dimer ABG pH POC ABG pCO2 POC ABG pO2 63.5 L ABG HCO3 ABG Base Excess ABG Hemoglobin 7.0 L ABG Oxyhemoglobin 88.3 L ABG Sodium 130.1 L ABG Potassium 5.0 H ABG Chloride 87.0 L ABG Glucose Oxyhemoglobin Carboxyhemoglobin Sodium Potassium Chloride Carbon Dioxide BUN Creatinine Glucose POC Glucose 140 H 116 H Calcium Phosphorus Magnesium Ferritin AST Alkaline Phosphatase Lactate Dehydrogenase Troponin T Total Protein Albumin HDL Cholesterol Arterial Blood Glucose Arterial Blood Ionized Calcium 3.2 L Crossmatch 09/10/20 09/10/20 09/10/20 06:34 07:15 07:15 WBC RBC 1.88 L Hgb 6.5 L Hct 19.1 L* MCV 102 H MCH 34 H RDW 17.5 H Plt Count 121 L Lymph % (Auto) [place] % (Auto) Lymph # (Auto) Seg Neutrophils % Seg Neuts % (Manual) 93.0 H Lymphocytes % (Manual) 4.0 L Nucleated RBC % Seg Neutrophils # Seg Neutrophils # Man 8.8 H Lymphocytes # (Manual) 0.4 L D-Dimer ABG pH POC ABG pCO2 POC ABG pO2 ABG HCO3 ABG Base Excess ABG Hemoglobin ABG Oxyhemoglobin ABG Sodium ABG Potassium ABG Chloride ABG Glucose Oxyhemoglobin Carboxyhemoglobin Sodium Potassium 5.2 H Chloride 84.4 L Carbon Dioxide BUN 189 H Creatinine 12.4 H Glucose 118 H POC Glucose 125 H Calcium 6.8 L Phosphorus Magnesium Ferritin AST Alkaline Phosphatase Lactate Dehydrogenase Troponin T Total Protein Albumin HDL Cholesterol Arterial Blood Glucose Arterial Blood Ionized Calcium Crossmatch 09/10/20 09/10/20 09/10/20 08:35 09:05 21:47 WBC RBC Hgb Hct MCV MCH RDW Plt Count Lymph % (Auto) [place] % (Auto) Lymph # (Auto) Seg Neutrophils % Seg Neuts % (Manual) Lymphocytes % (Manual) Nucleated RBC % Seg Neutrophils # Seg Neutrophils # Man Lymphocytes # (Manual) D-Dimer ABG pH POC ABG pCO2 POC ABG pO2 ABG HCO3 ABG Base Excess ABG Hemoglobin ABG Oxyhemoglobin ABG Sodium ABG Potassium ABG Chloride ABG Glucose Oxyhemoglobin Carboxyhemoglobin Sodium Potassium Chloride Carbon Dioxide BUN Creatinine Glucose POC Glucose 107 H 66 L Calcium Phosphorus Magnesium Ferritin AST Alkaline Phosphatase Lactate Dehydrogenase Troponin T Total Protein Albumin HDL Cholesterol Arterial Blood Glucose Arterial Blood Ionized Calcium Crossmatch See Detail 09/10/20 09/11/20 09/11/20 23:35 00:02 10:13 WBC RBC Hgb Hct MCV MCH RDW Plt Count Lymph % (Auto) [place] % (Auto) Lymph # (Auto) Seg Neutrophils % Seg Neuts % (Manual) Lymphocytes % (Manual) Nucleated RBC % Seg Neutrophils # Seg Neutrophils # Man Lymphocytes # (Manual) D-Dimer ABG pH POC ABG pCO2 POC ABG pO2 ABG HCO3 ABG Base Excess ABG Hemoglobin ABG Oxyhemoglobin ABG Sodium ABG Potassium ABG Chloride ABG Glucose Oxyhemoglobin Carboxyhemoglobin Sodium Potassium Chloride Carbon Dioxide BUN Creatinine Glucose POC Glucose 129 H 133 H 120 H Calcium Phosphorus Magnesium Ferritin AST Alkaline Phosphatase Lactate Dehydrogenase Troponin T Total Protein Albumin HDL Cholesterol Arterial Blood Glucose Arterial Blood Ionized Calcium Crossmatch 09/11/20 09/11/20 09/11/20 11:51 15:18 17:39 WBC RBC Hgb Hct MCV MCH RDW Plt Count Lymph % (Auto) [place] % (Auto) Lymph # (Auto) Seg Neutrophils % Seg Neuts % (Manual) Lymphocytes % (Manual) Nucleated RBC % Seg Neutrophils # Seg Neutrophils # Man Lymphocytes # (Manual) D-Dimer ABG pH POC ABG pCO2 POC ABG pO2 ABG HCO3 ABG Base Excess ABG Hemoglobin ABG Oxyhemoglobin ABG Sodium ABG Potassium ABG Chloride ABG Glucose Oxyhemoglobin Carboxyhemoglobin Sodium Potassium Chloride Carbon Dioxide BUN Creatinine Glucose POC Glucose 141 H 162 H 139 H Calcium Phosphorus Magnesium Ferritin AST Alkaline Phosphatase Lactate Dehydrogenase Troponin T Total Protein Albumin HDL Cholesterol Arterial Blood Glucose Arterial Blood Ionized Calcium Crossmatch 09/11/20 09/12/20 09/12/20 22:05 01:58 05:20 WBC RBC Hgb Hct MCV MCH RDW Plt Count Lymph % (Auto) [place] % (Auto) Lymph # (Auto) Seg Neutrophils % Seg Neuts % (Manual) Lymphocytes % (Manual) Nucleated RBC % Seg Neutrophils # Seg Neutrophils # Man Lymphocytes # (Manual) D-Dimer ABG pH POC ABG pCO2 POC ABG pO2 ABG HCO3 ABG Base Excess ABG Hemoglobin ABG Oxyhemoglobin ABG Sodium ABG Potassium ABG Chloride ABG Glucose Oxyhemoglobin Carboxyhemoglobin Sodium Potassium Chloride Carbon Dioxide BUN Creatinine Glucose POC Glucose 162 H 172 H 138 H Calcium Phosphorus Magnesium Ferritin AST Alkaline Phosphatase Lactate Dehydrogenase Troponin T Total Protein Albumin HDL Cholesterol Arterial Blood Glucose Arterial Blood Ionized Calcium Crossmatch 09/12/20 09/12/20 09/12/20 09:55 13:53 15:57 WBC RBC Hgb Hct MCV MCH RDW Plt Count Lymph % (Auto) [place] % (Auto) Lymph # (Auto) Seg Neutrophils % Seg Neuts % (Manual) Lymphocytes % (Manual) Nucleated RBC % Seg Neutrophils # Seg Neutrophils # Man Lymphocytes # (Manual) D-Dimer ABG pH POC ABG pCO2 POC ABG pO2 ABG HCO3 ABG Base Excess ABG Hemoglobin ABG Oxyhemoglobin ABG Sodium ABG Potassium ABG Chloride ABG Glucose Oxyhemoglobin Carboxyhemoglobin Sodium Potassium Chloride Carbon Dioxide BUN Creatinine Glucose POC Glucose 200 H 225 H 219 H Calcium Phosphorus Magnesium Ferritin AST Alkaline Phosphatase Lactate Dehydrogenase Troponin T Total Protein Albumin HDL Cholesterol Arterial Blood Glucose Arterial Blood Ionized Calcium Crossmatch Allied health notes reviewed: nursing
[2020-09-13] MEDS: INSULIN REGULAR, HUMAN 100 UNITS/1 ML SUB-Q SCH ×6 (02:00→21:36)
[2020-09-13] MEDS: HEPARIN 5,000 UNIT/1 ML VIAL SUB-Q SCH ×3 (05:50→21:36)
[2020-09-13] MEDS: NITROGLYCERIN 0.4 MG PATCH 24HR TD SCH (05:52)
--- NOTE | 2020-09-13 07:59 | Progress Note ---
Assessment and Plan Cardiac arrest with return of spontaneous circulation Acute hypoxemic respiratory failure Bilateral pneumonia, possibly aspiration Bilateral pulmonary edema End-stage renal disease, on dialysis NSTEMI Severe hyperkalemia History of multiple myeloma History of hypertension Anemia that is microcytic Elevated serum troponin Medical management of hyperkalemia HD today - continue to titrate supplemental oxygen to maintain sPO2 89-92% - VAP bundle addressed, aspiration precautions HOB >40 - continue lung protective strategies - continue bronchodilators with pulmonary hygiene per RT - continue HD/UF for toxin and volume clearance, conservative fluid therapy as tolerated by hemodynamics - continue to avoid nephrotoxins, renally dose all medications - continue accuchecks with glycemic control per SSI (While critically ill target blood glucose of 140-180 mg/dL; avoid hypoglycemia) - complete ABs per ID recs -currently on Meropenem to complete 8 days of therapy - continue enteral nutritional support at goal rate as tolerated -VTE prophylaxis -Stress ulcer prophylaxis - PT/OT/ROM exercises - continue mobility , off loading, frequent turning to prevent pressure ulcers - discharge planning ongoing concurrently Goals of care discussions with family on going Plan for inpatient hospice CONDITION: CRITICAL PROGNOSIS: GUARDED CODE STATUS: FULL CODE Subjective Date of service: 09/13/20 Principal diagnosis: Cardiac arrest; Ac. hypoxemic resp failure; PNA; ESRD; NSTEMI; Hyperkalemia Interval history: Patient is seen today for: Cardiac arrest with ROSC; Acute hypoxemic respiratory failure; Aspiration Pneumonia; ESRD on dialysis; NSTEMI; Hyperkalemia Seen and examined at bedside; 24hour events reviewed; nursing and respiratory care staff consulted; no adverse overnight events reported to me; resting peacefully in bed; MRI confirmed anoxic injury; she remains on MVS with persistent mental status changes. Seen with [employer] . family plans on deescalating care adn placing patient in hospice Objective Vital Signs - 12hr 09/12/20 09/12/20 09/12/20 20:00 20:30 21:00 Temperature 97.0 F L Pulse Rate 56 L 57 L 57 L Pulse Rate [ 56 L From Monitor] Respiratory 17 17 17 Rate Blood Pressure 132/43 132/44 138/45 O2 Sat by Pulse 100 94 100 Oximetry 09/12/20 09/12/20 09/12/20 21:30 21:45 22:00 Temperature Pulse Rate 59 L 52 L 60 Pulse Rate [ From Monitor] Respiratory 12 12 Rate Blood Pressure 138/41 138/41 139/40 O2 Sat by Pulse 100 100 Oximetry 09/12/20 09/12/20 09/12/20 22:30 22:32 23:00 Temperature Pulse Rate 61 60 61 Pulse Rate [ From Monitor] Respiratory 12 12 15 Rate Blood Pressure 140/42 140/42 139/41 O2 Sat by Pulse 100 100 100 Oximetry 09/12/20 09/12/20 09/13/20 23:30 23:36 00:00 Temperature 97.1 F L Pulse Rate 61 61 61 Pulse Rate [ 56 L From Monitor] Respiratory 13 14 Rate Blood Pressure 144/45 146/44 146/45 O2 Sat by Pulse 100 100 100 Oximetry 09/13/20 09/13/20 09/13/20 00:30 01:00 01:30 Temperature Pulse Rate 61 61 60 Pulse Rate [ From Monitor] Respiratory 13 13 13 Rate Blood Pressure 147/46 138/42 144/47 O2 Sat by Pulse 100 100 100 Oximetry 09/13/20 09/13/20 09/13/20 02:00 02:30 03:00 Temperature Pulse Rate 61 61 62 Pulse Rate [ From Monitor] Respiratory 12 13 14 Rate Blood Pressure 136/42 143/46 144/46 O2 Sat by Pulse 100 100 100 Oximetry 09/13/20 09/13/20 09/13/20 03:30 03:33 03:51 Temperature 97.4 F L Pulse Rate 61 61 Pulse Rate [ From Monitor] Respiratory 14 Rate Blood Pressure 147/47 142/43 O2 Sat by Pulse 100 100 Oximetry 09/13/20 09/13/20 09/13/20 04:00 04:30 05:00 Temperature Pulse Rate 62 63 64 Pulse Rate [ 61 From Monitor] Respiratory 18 20 13 Rate Blood Pressure 149/46 153/46 148/44 O2 Sat by Pulse 100 100 100 Oximetry 09/13/20 09/13/20 09/13/20 05:30 05:52 06:00 Temperature Pulse Rate 62 51 L 60 Pulse Rate [ From Monitor] Respiratory 16 15 Rate Blood Pressure 152/51 145/52 137/49 O2 Sat by Pulse 98 95 Oximetry 09/13/20 07:00 Temperature 97.9 F Pulse Rate Pulse Rate [ From Monitor] Respiratory Rate Blood Pressure O2 Sat by Pulse Oximetry Constitutional: no acute distress, other (elderly female riding set rate at rest on MVS) Eyes: non-icteric ENT: oropharynx moist, other (ETT 23 cm COLLEEN) Neck: supple, no lymphadenopathy, no JVD Effort: normal Ascultation: Bilateral: rhonchi Percussion: Bilateral: not dull Cardiovascular: regular rate and rhythm, other (S1,S2) Gastrointestinal: normoactive bowel sounds, soft, non-tender, non-distended Integumentary: normal Extremities: no cyanosis, pulses normal, no ischemia or petechiae Neurologic: pupils equal and round (dilated), other (unresponsive, not obeying commands) Psychiatric: other (unable to assess re: AMS) CBC and BMP: 09/13/20 15:29 09/13/20 15:29 ABG, PT/INR, D-dimer: ABG ABG pH 7.381 (7.320-7.450) 09/10/20 03:07 POC ABG pCO2 38.3 mmHg (32.0-48.0) 09/10/20 03:07 ABG pCO2 38.0 mm Hg 09/02/20 03:40 POC ABG pO2 63.5 mmHg (83-108) L 09/10/20 03:07 ABG pO2 83.1 mm Hg (80.0-90.0) 09/02/20 03:40 POC ABG HCO3 22.2 09/10/20 03:07 ABG O2 Saturation 89.5 (0-100) 09/10/20 03:07 PT/INR, D-dimer PT 12.8 Sec. (12.2-14.9) 08/31/20 05:45 INR 0.90 (0.87-1.13) 08/31/20 05:45 D-Dimer > 17817 ng/mlDDU (0-234) H 08/30/20 03:10 Abnormal lab findings: Abnormal Labs 08/30/20 08/30/20 08/30/20 00:14 00:15 00:15 WBC RBC 2.83 L Hgb 9.8 L Hct MCV 112 H MCH 35 H RDW 19.9 H Plt Count 95 L Lymph % (Auto) [place] % (Auto) Lymph # (Auto) Seg Neutrophils % Seg Neuts % (Manual) Lymphocytes % (Manual) Nucleated RBC % 1.0 H Seg Neutrophils # Seg Neutrophils # Man Lymphocytes # (Manual) D-Dimer ABG pH 7.199 L POC ABG pCO2 49.3 H POC ABG pO2 ABG HCO3 ABG Base Excess ABG Hemoglobin 11.9 L ABG Oxyhemoglobin 93.0 L ABG Sodium ABG Potassium 6.9 H ABG Chloride ABG Glucose 158 H Oxyhemoglobin Carboxyhemoglobin 2.8 H Sodium Potassium 7.0 H* Chloride Carbon Dioxide 18 L BUN 68 H Creatinine 8.3 H Glucose 174 H POC Glucose Calcium Phosphorus Magnesium Ferritin AST 68 H Alkaline Phosphatase 414 H Lactate Dehydrogenase Troponin T 0.085 H Total Protein 5.6 L Albumin 3.4 L HDL Cholesterol 66 H Arterial Blood Glucose 158 H Arterial Blood Ionized Calcium Crossmatch 08/30/20 08/30/20 08/30/20 00:15 00:15 03:10 WBC RBC Hgb Hct MCV MCH RDW Plt Count Lymph % (Auto) [place] % (Auto) Lymph # (Auto) Seg Neutrophils % Seg Neuts % (Manual) Lymphocytes % (Manual) Nucleated RBC % Seg Neutrophils # Seg Neutrophils # Man Lymphocytes # (Manual) D-Dimer 6083.16 H > 64991 H ABG pH POC ABG pCO2 POC ABG pO2 ABG HCO3 ABG Base Excess ABG Hemoglobin ABG Oxyhemoglobin ABG Sodium ABG Potassium ABG Chloride ABG Glucose Oxyhemoglobin Carboxyhemoglobin Sodium Potassium Chloride Carbon Dioxide BUN Creatinine Glucose POC Glucose Calcium Phosphorus 11.50 H Magnesium 3.80 H Ferritin AST Alkaline Phosphatase Lactate Dehydrogenase Troponin T Total Protein Albumin HDL Cholesterol Arterial Blood Glucose Arterial Blood Ionized Calcium Crossmatch 08/30/20 08/30/20 08/30/20 03:10 03:10 04:49 WBC RBC Hgb Hct MCV MCH RDW Plt Count Lymph % (Auto) [place] % (Auto) Lymph # (Auto) Seg Neutrophils % Seg Neuts % (Manual) Lymphocytes % (Manual) Nucleated RBC % Seg Neutrophils # Seg Neutrophils # Man Lymphocytes # (Manual) D-Dimer ABG pH POC ABG pCO2 POC ABG pO2 ABG HCO3 ABG Base Excess ABG Hemoglobin 10.8 L ABG Oxyhemoglobin ABG Sodium ABG Potassium 6.7 H ABG Chloride ABG Glucose 137 H Oxyhemoglobin Carboxyhemoglobin Sodium Potassium Chloride Carbon Dioxide BUN Creatinine Glucose 126 H POC Glucose Calcium Phosphorus Magnesium Ferritin 830.0 H AST Alkaline Phosphatase Lactate Dehydrogenase 400 H Troponin T Total Protein Albumin HDL Cholesterol Arterial Blood Glucose 137 H Arterial Blood Ionized Calcium 4.5 L Crossmatch 06/14/21 06/14/21 06/14/21 07:13 15:03 15:03 WBC 17.2 H RBC 3.23 L Hgb Hct MCV 108 H MCH 34 H RDW 19.4 H Plt Count 90 L Lymph % (Auto) [place] % (Auto) Lymph # (Auto) Seg Neutrophils % Seg Neuts % (Manual) Lymphocytes % (Manual) Nucleated RBC % Seg Neutrophils # Seg Neutrophils # Man Lymphocytes # (Manual) D-Dimer ABG pH POC ABG pCO2 POC ABG pO2 ABG HCO3 ABG Base Excess ABG Hemoglobin ABG Oxyhemoglobin ABG Sodium ABG Potassium ABG Chloride ABG Glucose Oxyhemoglobin Carboxyhemoglobin Sodium Potassium 8.2 H* 6.5 H* D Chloride 96.7 L Carbon Dioxide 21 L BUN 52 H Creatinine 5.7 H Glucose 220 H POC Glucose Calcium Phosphorus Magnesium Ferritin AST 68 H Alkaline Phosphatase 364 H Lactate Dehydrogenase Troponin T Total Protein Albumin 3.7 L HDL Cholesterol Arterial Blood Glucose Arterial Blood Ionized Calcium Crossmatch 08/30/20 08/30/20 08/31/20 17:27 21:03 04:07 WBC RBC Hgb Hct MCV MCH RDW Plt Count Lymph % (Auto) [place] % (Auto) Lymph # (Auto) Seg Neutrophils % Seg Neuts % (Manual) Lymphocytes % (Manual) Nucleated RBC % Seg Neutrophils # Seg Neutrophils # Man Lymphocytes # (Manual) D-Dimer ABG pH 7.498 H POC ABG pCO2 27.9 L POC ABG pO2 126.9 H ABG HCO3 ABG Base Excess ABG Hemoglobin 10.1 L ABG Oxyhemoglobin 98.3 H ABG Sodium 134.3 L ABG Potassium 6.7 H ABG Chloride ABG Glucose 261 H Oxyhemoglobin Carboxyhemoglobin 0.1 L Sodium Potassium Chloride Carbon Dioxide BUN Creatinine Glucose POC Glucose 223 H 230 H Calcium Phosphorus Magnesium Ferritin AST Alkaline Phosphatase Lactate Dehydrogenase Troponin T Total Protein Albumin HDL Cholesterol Arterial Blood Glucose 261 H Arterial Blood Ionized Calcium 3.6 L Crossmatch 08/31/20 08/31/20 08/31/20 05:01 05:45 05:45 WBC 13.1 H RBC 2.83 L Hgb 9.6 L Hct 29.8 L MCV 105 H MCH 34 H RDW 18.9 H Plt Count 88 L Lymph % (Auto) 6.9 L [place] % (Auto) Lymph # (Auto) 0.9 L Seg Neutrophils % 87.8 H Seg Neuts % (Manual) Lymphocytes % (Manual) Nucleated RBC % Seg Neutrophils # 11.5 H Seg Neutrophils # Man Lymphocytes # (Manual) D-Dimer ABG pH POC ABG pCO2 POC ABG pO2 ABG HCO3 ABG Base Excess ABG Hemoglobin ABG Oxyhemoglobin ABG Sodium ABG Potassium ABG Chloride ABG Glucose Oxyhemoglobin Carboxyhemoglobin Sodium Potassium 7.1 H* Chloride 96.7 L Carbon Dioxide BUN 74 H Creatinine 7.0 H Glucose 254 H POC Glucose 256 H Calcium 7.6 L Phosphorus Magnesium Ferritin AST Alkaline Phosphatase Lactate Dehydrogenase Troponin T Total Protein Albumin HDL Cholesterol Arterial Blood Glucose Arterial Blood Ionized Calcium Crossmatch 08/31/20 08/31/20 09/01/20 11:38 23:31 03:13 WBC RBC Hgb Hct MCV MCH RDW Plt Count Lymph % (Auto) [place] % (Auto) Lymph # (Auto) Seg Neutrophils % Seg Neuts % (Manual) Lymphocytes % (Manual) Nucleated RBC % Seg Neutrophils # Seg Neutrophils # Man Lymphocytes # (Manual) D-Dimer ABG pH 7.519 H POC ABG pCO2 POC ABG pO2 ABG HCO3 ABG Base Excess ABG Hemoglobin 9.3 L ABG Oxyhemoglobin ABG Sodium 134.7 L ABG Potassium ABG Chloride 94.0 L ABG Glucose 441 H Oxyhemoglobin Carboxyhemoglobin Sodium Potassium Chloride Carbon Dioxide BUN Creatinine Glucose POC Glucose 294 H 426 H Calcium Phosphorus Magnesium Ferritin AST Alkaline Phosphatase Lactate Dehydrogenase Troponin T Total Protein Albumin HDL Cholesterol Arterial Blood Glucose 441 H Arterial Blood Ionized Calcium 3.8 L Crossmatch 09/01/20 09/01/20 09/01/20 05:20 10:32 11:45 WBC RBC Hgb Hct MCV MCH RDW Plt Count Lymph % (Auto) [place] % (Auto) Lymph # (Auto) Seg Neutrophils % Seg Neuts % (Manual) Lymphocytes % (Manual) Nucleated RBC % Seg Neutrophils # Seg Neutrophils # Man Lymphocytes # (Manual) D-Dimer ABG pH POC ABG pCO2 POC ABG pO2 ABG HCO3 ABG Base Excess ABG Hemoglobin ABG Oxyhemoglobin ABG Sodium ABG Potassium ABG Chloride ABG Glucose Oxyhemoglobin Carboxyhemoglobin Sodium Potassium Chloride Carbon Dioxide BUN Creatinine Glucose POC Glucose 422 H 227 H 203 H Calcium Phosphorus Magnesium Ferritin AST Alkaline Phosphatase Lactate Dehydrogenase Troponin T Total Protein Albumin HDL Cholesterol Arterial Blood Glucose Arterial Blood Ionized Calcium Crossmatch 09/01/20 09/01/20 09/01/20 13:34 17:11 17:29 WBC RBC Hgb Hct MCV MCH RDW Plt Count Lymph % (Auto) [place] % (Auto) Lymph # (Auto) Seg Neutrophils % Seg Neuts % (Manual) Lymphocytes % (Manual) Nucleated RBC % Seg Neutrophils # Seg Neutrophils # Man Lymphocytes # (Manual) D-Dimer ABG pH POC ABG pCO2 POC ABG pO2 ABG HCO3 ABG Base Excess ABG Hemoglobin ABG Oxyhemoglobin ABG Sodium ABG Potassium ABG Chloride ABG Glucose Oxyhemoglobin Carboxyhemoglobin Sodium Potassium Chloride 94.5 L Carbon Dioxide BUN 29 H Creatinine 3.4 H D Glucose 241 H POC Glucose 212 H 198 H Calcium 8.2 L Phosphorus Magnesium Ferritin AST Alkaline Phosphatase Lactate Dehydrogenase Troponin T Total Protein Albumin HDL Cholesterol Arterial Blood Glucose Arterial Blood Ionized Calcium Crossmatch 09/01/20 09/02/20 09/02/20 21:33 03:08 03:40 WBC RBC Hgb Hct MCV MCH RDW Plt Count Lymph % (Auto) [place] % (Auto) Lymph # (Auto) Seg Neutrophils % Seg Neuts % (Manual) Lymphocytes % (Manual) Nucleated RBC % Seg Neutrophils # Seg Neutrophils # Man Lymphocytes # (Manual) D-Dimer ABG pH 7.506 H POC ABG pCO2 POC ABG pO2 ABG HCO3 29.4 H ABG Base Excess 5.9 H ABG Hemoglobin 8.3 L ABG Oxyhemoglobin ABG Sodium ABG Potassium ABG Chloride ABG Glucose Oxyhemoglobin 94.8 L Carboxyhemoglobin Sodium Potassium Chloride Carbon Dioxide BUN Creatinine Glucose POC Glucose 188 H 179 H Calcium Phosphorus Magnesium Ferritin AST Alkaline Phosphatase Lactate Dehydrogenase Troponin T Total Protein Albumin HDL Cholesterol Arterial Blood Glucose Arterial Blood Ionized Calcium Crossmatch 09/02/20 09/02/20 09/02/20 05:55 07:12 09:28 WBC RBC Hgb Hct MCV MCH RDW Plt Count Lymph % (Auto) [place] % (Auto) Lymph # (Auto) Seg Neutrophils % Seg Neuts % (Manual) Lymphocytes % (Manual) Nucleated RBC % Seg Neutrophils # Seg Neutrophils # Man Lymphocytes # (Manual) D-Dimer ABG pH POC ABG pCO2 POC ABG pO2 ABG HCO3 ABG Base Excess ABG Hemoglobin ABG Oxyhemoglobin ABG Sodium ABG Potassium ABG Chloride ABG Glucose Oxyhemoglobin Carboxyhemoglobin Sodium 136 L Potassium Chloride 91.6 L Carbon Dioxide BUN 52 H Creatinine 5.5 H D Glucose 176 H POC Glucose 185 H 196 H Calcium 7.7 L Phosphorus Magnesium Ferritin AST Alkaline Phosphatase Lactate Dehydrogenase Troponin T Total Protein Albumin HDL Cholesterol Arterial Blood Glucose Arterial Blood Ionized Calcium Crossmatch 09/02/20 09/02/20 09/02/20 11:06 13:03 17:22 WBC RBC Hgb Hct MCV MCH RDW Plt Count Lymph % (Auto) [place] % (Auto) Lymph # (Auto) Seg Neutrophils % Seg Neuts % (Manual) Lymphocytes % (Manual) Nucleated RBC % Seg Neutrophils # Seg Neutrophils # Man Lymphocytes # (Manual) D-Dimer ABG pH POC ABG pCO2 POC ABG pO2 ABG HCO3 ABG Base Excess ABG Hemoglobin ABG Oxyhemoglobin ABG Sodium ABG Potassium ABG Chloride ABG Glucose Oxyhemoglobin Carboxyhemoglobin Sodium Potassium Chloride Carbon Dioxide BUN Creatinine Glucose POC Glucose 224 H 252 H 196 H Calcium Phosphorus Magnesium Ferritin AST Alkaline Phosphatase Lactate Dehydrogenase Troponin T Total Protein Albumin HDL Cholesterol Arterial Blood Glucose Arterial Blood Ionized Calcium Crossmatch 09/02/20 09/03/20 09/03/20 21:13 02:02 04:12 WBC RBC Hgb Hct MCV MCH RDW Plt Count Lymph % (Auto) [place] % (Auto) Lymph # (Auto) Seg Neutrophils % Seg Neuts % (Manual) Lymphocytes % (Manual) Nucleated RBC % Seg Neutrophils # Seg Neutrophils # Man Lymphocytes # (Manual) D-Dimer ABG pH POC ABG pCO2 POC ABG pO2 ABG HCO3 ABG Base Excess ABG Hemoglobin ABG Oxyhemoglobin ABG Sodium ABG Potassium ABG Chloride ABG Glucose Oxyhemoglobin Carboxyhemoglobin Sodium 136 L Potassium Chloride 90.3 L Carbon Dioxide BUN 79 H Creatinine 8.1 H Glucose 223 H POC Glucose 204 H 205 H Calcium 7.1 L Phosphorus Magnesium Ferritin AST Alkaline Phosphatase Lactate Dehydrogenase Troponin T Total Protein Albumin HDL Cholesterol Arterial Blood Glucose Arterial Blood Ionized Calcium Crossmatch 09/03/20 09/03/20 09/03/20 04:12 05:35 09:28 WBC RBC 2.35 L Hgb 8.3 L Hct 25.1 L MCV 107 H MCH 35 H RDW 18.5 H Plt Count 87 L Lymph % (Auto) [place] % (Auto) Lymph # (Auto) Seg Neutrophils % Seg Neuts % (Manual) Lymphocytes % (Manual) Nucleated RBC % Seg Neutrophils # Seg Neutrophils # Man Lymphocytes # (Manual) D-Dimer ABG pH POC ABG pCO2 POC ABG pO2 ABG HCO3 ABG Base Excess ABG Hemoglobin ABG Oxyhemoglobin ABG Sodium ABG Potassium ABG Chloride ABG Glucose Oxyhemoglobin Carboxyhemoglobin Sodium Potassium Chloride Carbon Dioxide BUN Creatinine Glucose POC Glucose 219 H 202 H Calcium Phosphorus Magnesium Ferritin AST Alkaline Phosphatase Lactate Dehydrogenase Troponin T Total Protein Albumin HDL Cholesterol Arterial Blood Glucose Arterial Blood Ionized Calcium Crossmatch 09/03/20 09/03/20 09/03/20 11:36 13:41 16:56 WBC RBC Hgb Hct MCV MCH RDW Plt Count Lymph % (Auto) [place] % (Auto) Lymph # (Auto) Seg Neutrophils % Seg Neuts % (Manual) Lymphocytes % (Manual) Nucleated RBC % Seg Neutrophils # Seg Neutrophils # Man Lymphocytes # (Manual) D-Dimer ABG pH POC ABG pCO2 POC ABG pO2 ABG HCO3 ABG Base Excess ABG Hemoglobin ABG Oxyhemoglobin ABG Sodium ABG Potassium ABG Chloride ABG Glucose Oxyhemoglobin Carboxyhemoglobin Sodium Potassium Chloride Carbon Dioxide BUN Creatinine Glucose POC Glucose 216 H 224 H 298 H Calcium Phosphorus Magnesium Ferritin AST Alkaline Phosphatase Lactate Dehydrogenase Troponin T Total Protein Albumin HDL Cholesterol Arterial Blood Glucose Arterial Blood Ionized Calcium Crossmatch 09/03/20 09/04/20 09/04/20 20:49 00:23 05:28 WBC RBC Hgb Hct MCV MCH RDW Plt Count Lymph % (Auto) [place] % (Auto) Lymph # (Auto) Seg Neutrophils % Seg Neuts % (Manual) Lymphocytes % (Manual) Nucleated RBC % Seg Neutrophils # Seg Neutrophils # Man Lymphocytes # (Manual) D-Dimer ABG pH POC ABG pCO2 POC ABG pO2 ABG HCO3 ABG Base Excess ABG Hemoglobin ABG Oxyhemoglobin ABG Sodium ABG Potassium ABG Chloride ABG Glucose Oxyhemoglobin Carboxyhemoglobin Sodium Potassium Chloride Carbon Dioxide BUN Creatinine Glucose POC Glucose 228 H 228 H 283 H Calcium Phosphorus Magnesium Ferritin AST Alkaline Phosphatase Lactate Dehydrogenase Troponin T Total Protein Albumin HDL Cholesterol Arterial Blood Glucose Arterial Blood Ionized Calcium Crossmatch 09/04/20 09/04/20 09/04/20 10:03 17:39 21:45 WBC RBC Hgb Hct MCV MCH RDW Plt Count Lymph % (Auto) [place] % (Auto) Lymph # (Auto) Seg Neutrophils % Seg Neuts % (Manual) Lymphocytes % (Manual) Nucleated RBC % Seg Neutrophils # Seg Neutrophils # Man Lymphocytes # (Manual) D-Dimer ABG pH POC ABG pCO2 POC ABG pO2 ABG HCO3 ABG Base Excess ABG Hemoglobin ABG Oxyhemoglobin ABG Sodium ABG Potassium ABG Chloride ABG Glucose Oxyhemoglobin Carboxyhemoglobin Sodium Potassium Chloride Carbon Dioxide BUN Creatinine Glucose POC Glucose 159 H 128 H 213 H Calcium Phosphorus Magnesium Ferritin AST Alkaline Phosphatase Lactate Dehydrogenase Troponin T Total Protein Albumin HDL Cholesterol Arterial Blood Glucose Arterial Blood Ionized Calcium Crossmatch 09/05/20 09/05/20 09/05/20 02:04 05:33 09:25 WBC RBC Hgb Hct MCV MCH RDW Plt Count Lymph % (Auto) [place] % (Auto) Lymph # (Auto) Seg Neutrophils % Seg Neuts % (Manual) Lymphocytes % (Manual) Nucleated RBC % Seg Neutrophils # Seg Neutrophils # Man Lymphocytes # (Manual) D-Dimer ABG pH POC ABG pCO2 POC ABG pO2 ABG HCO3 ABG Base Excess ABG Hemoglobin ABG Oxyhemoglobin ABG Sodium ABG Potassium ABG Chloride ABG Glucose Oxyhemoglobin Carboxyhemoglobin Sodium Potassium Chloride Carbon Dioxide BUN Creatinine Glucose POC Glucose 178 H 177 H 199 H Calcium Phosphorus Magnesium Ferritin AST Alkaline Phosphatase Lactate Dehydrogenase Troponin T Total Protein Albumin HDL Cholesterol Arterial Blood Glucose Arterial Blood Ionized Calcium Crossmatch 09/05/20 09/05/20 09/05/20 13:26 16:47 21:40 WBC RBC Hgb Hct MCV MCH RDW Plt Count Lymph % (Auto) [place] % (Auto) Lymph # (Auto) Seg Neutrophils % Seg Neuts % (Manual) Lymphocytes % (Manual) Nucleated RBC % Seg Neutrophils # Seg Neutrophils # Man Lymphocytes # (Manual) D-Dimer ABG pH POC ABG pCO2 POC ABG pO2 ABG HCO3 ABG Base Excess ABG Hemoglobin ABG Oxyhemoglobin ABG Sodium ABG Potassium ABG Chloride ABG Glucose Oxyhemoglobin Carboxyhemoglobin Sodium Potassium Chloride Carbon Dioxide BUN Creatinine Glucose POC Glucose 136 H 141 H 131 H Calcium Phosphorus Magnesium Ferritin AST Alkaline Phosphatase Lactate Dehydrogenase Troponin T Total Protein Albumin HDL Cholesterol Arterial Blood Glucose Arterial Blood Ionized Calcium Crossmatch 09/06/20 09/06/20 09/06/20 03:16 05:20 07:39 WBC RBC Hgb Hct MCV MCH RDW Plt Count Lymph % (Auto) [place] % (Auto) Lymph # (Auto) Seg Neutrophils % Seg Neuts % (Manual) Lymphocytes % (Manual) Nucleated RBC % Seg Neutrophils # Seg Neutrophils # Man Lymphocytes # (Manual) D-Dimer ABG pH POC ABG pCO2 POC ABG pO2 66.8 L ABG HCO3 ABG Base Excess ABG Hemoglobin 9.3 L ABG Oxyhemoglobin 89.9 L ABG Sodium 130.5 L ABG Potassium 5.1 H ABG Chloride 91.0 L ABG Glucose 224 H Oxyhemoglobin Carboxyhemoglobin Sodium Potassium Chloride Carbon Dioxide BUN Creatinine Glucose POC Glucose 112 H 163 H Calcium Phosphorus Magnesium Ferritin AST Alkaline Phosphatase Lactate Dehydrogenase Troponin T Total Protein Albumin HDL Cholesterol Arterial Blood Glucose 224 H Arterial Blood Ionized Calcium 3.8 L Crossmatch 09/06/20 09/06/20 09/06/20 09:30 15:27 17:57 WBC RBC Hgb Hct MCV MCH RDW Plt Count Lymph % (Auto) [place] % (Auto) Lymph # (Auto) Seg Neutrophils % Seg Neuts % (Manual) Lymphocytes % (Manual) Nucleated RBC % Seg Neutrophils # Seg Neutrophils # Man Lymphocytes # (Manual) D-Dimer ABG pH POC ABG pCO2 POC ABG pO2 ABG HCO3 ABG Base Excess ABG Hemoglobin ABG Oxyhemoglobin ABG Sodium ABG Potassium ABG Chloride ABG Glucose Oxyhemoglobin Carboxyhemoglobin Sodium Potassium Chloride Carbon Dioxide BUN Creatinine Glucose POC Glucose 236 H 166 H 130 H Calcium Phosphorus Magnesium Ferritin AST Alkaline Phosphatase Lactate Dehydrogenase Troponin T Total Protein Albumin HDL Cholesterol Arterial Blood Glucose Arterial Blood Ionized Calcium Crossmatch 09/06/20 09/07/20 09/07/20 22:21 03:28 04:00 WBC RBC Hgb Hct MCV MCH RDW Plt Count Lymph % (Auto) [place] % (Auto) Lymph # (Auto) Seg Neutrophils % Seg Neuts % (Manual) Lymphocytes % (Manual) Nucleated RBC % Seg Neutrophils # Seg Neutrophils # Man Lymphocytes # (Manual) D-Dimer ABG pH POC ABG pCO2 POC ABG pO2 62.2 L ABG HCO3 ABG Base Excess ABG Hemoglobin 8.0 L ABG Oxyhemoglobin 87.8 L ABG Sodium 127.3 L ABG Potassium 5.7 H ABG Chloride 89.0 L ABG Glucose 232 H Oxyhemoglobin Carboxyhemoglobin Sodium Potassium Chloride Carbon Dioxide BUN Creatinine Glucose POC Glucose 154 H 183 H Calcium Phosphorus Magnesium Ferritin AST Alkaline Phosphatase Lactate Dehydrogenase Troponin T Total Protein Albumin HDL Cholesterol Arterial Blood Glucose 232 H Arterial Blood Ionized Calcium 3.7 L Crossmatch 09/07/20 09/07/20 09/07/20 04:12 04:12 05:45 WBC RBC 2.32 L Hgb 7.9 L Hct 24.0 L MCV 104 H MCH 34 H RDW 17.7 H Plt Count 116 L Lymph % (Auto) 8.5 L [place] % (Auto) 9.0 H Lymph # (Auto) 0.7 L Seg Neutrophils % 81.3 H Seg Neuts % (Manual) Lymphocytes % (Manual) Nucleated RBC % Seg Neutrophils # Seg Neutrophils # Man Lymphocytes # (Manual) D-Dimer ABG pH POC ABG pCO2 POC ABG pO2 ABG HCO3 ABG Base Excess ABG Hemoglobin ABG Oxyhemoglobin ABG Sodium ABG Potassium ABG Chloride ABG Glucose Oxyhemoglobin Carboxyhemoglobin Sodium 133 L Potassium 6.2 H* D Chloride 85.8 L Carbon Dioxide BUN 132 H Creatinine 9.8 H Glucose 227 H POC Glucose 223 H Calcium 7.9 L Phosphorus Magnesium Ferritin AST Alkaline Phosphatase Lactate Dehydrogenase Troponin T Total Protein Albumin HDL Cholesterol Arterial Blood Glucose Arterial Blood Ionized Calcium Crossmatch 09/07/20 09/07/20 09/07/20 07:49 11:48 18:13 WBC RBC Hgb Hct MCV MCH RDW Plt Count Lymph % (Auto) [place] % (Auto) Lymph # (Auto) Seg Neutrophils % Seg Neuts % (Manual) Lymphocytes % (Manual) Nucleated RBC % Seg Neutrophils # Seg Neutrophils # Man Lymphocytes # (Manual) D-Dimer ABG pH POC ABG pCO2 POC ABG pO2 ABG HCO3 ABG Base Excess ABG Hemoglobin ABG Oxyhemoglobin ABG Sodium ABG Potassium ABG Chloride ABG Glucose Oxyhemoglobin Carboxyhemoglobin Sodium Potassium Chloride Carbon Dioxide BUN Creatinine Glucose POC Glucose 281 H 169 H 162 H Calcium Phosphorus Magnesium Ferritin AST Alkaline Phosphatase Lactate Dehydrogenase Troponin T Total Protein Albumin HDL Cholesterol Arterial Blood Glucose Arterial Blood Ionized Calcium Crossmatch 09/07/20 09/08/20 09/08/20 20:53 01:07 05:49 WBC RBC Hgb Hct MCV MCH RDW Plt Count Lymph % (Auto) [place] % (Auto) Lymph # (Auto) Seg Neutrophils % Seg Neuts % (Manual) Lymphocytes % (Manual) Nucleated RBC % Seg Neutrophils # Seg Neutrophils # Man Lymphocytes # (Manual) D-Dimer ABG pH POC ABG pCO2 POC ABG pO2 ABG HCO3 ABG Base Excess ABG Hemoglobin ABG Oxyhemoglobin ABG Sodium ABG Potassium ABG Chloride ABG Glucose Oxyhemoglobin Carboxyhemoglobin Sodium Potassium Chloride Carbon Dioxide BUN Creatinine Glucose POC Glucose 205 H 180 H 186 H Calcium Phosphorus Magnesium Ferritin AST Alkaline Phosphatase Lactate Dehydrogenase Troponin T Total Protein Albumin HDL Cholesterol Arterial Blood Glucose Arterial Blood Ionized Calcium Crossmatch 09/08/20 09/08/20 09/08/20 11:44 13:56 17:31 WBC RBC Hgb Hct MCV MCH RDW Plt Count Lymph % (Auto) [place] % (Auto) Lymph # (Auto) Seg Neutrophils % Seg Neuts % (Manual) Lymphocytes % (Manual) Nucleated RBC % Seg Neutrophils # Seg Neutrophils # Man Lymphocytes # (Manual) D-Dimer ABG pH POC ABG pCO2 POC ABG pO2 150.6 H ABG HCO3 ABG Base Excess ABG Hemoglobin 6.6 L ABG Oxyhemoglobin ABG Sodium 133.2 L ABG Potassium ABG Chloride 90.0 L ABG Glucose 173 H Oxyhemoglobin Carboxyhemoglobin Sodium Potassium Chloride Carbon Dioxide BUN Creatinine Glucose POC Glucose 164 H 160 H Calcium Phosphorus Magnesium Ferritin AST Alkaline Phosphatase Lactate Dehydrogenase Troponin T Total Protein Albumin HDL Cholesterol Arterial Blood Glucose 173 H Arterial Blood Ionized Calcium 3.5 L Crossmatch 09/08/20 09/09/20 09/09/20 19:19 02:39 03:43 WBC RBC Hgb Hct MCV MCH RDW Plt Count Lymph % (Auto) [place] % (Auto) Lymph # (Auto) Seg Neutrophils % Seg Neuts % (Manual) Lymphocytes % (Manual) Nucleated RBC % Seg Neutrophils # Seg Neutrophils # Man Lymphocytes # (Manual) D-Dimer ABG pH POC ABG pCO2 POC ABG pO2 58.6 L ABG HCO3 ABG Base Excess ABG Hemoglobin 6.8 L ABG Oxyhemoglobin 84.7 L ABG Sodium 131.6 L ABG Potassium ABG Chloride 88.0 L ABG Glucose 214 H Oxyhemoglobin Carboxyhemoglobin Sodium Potassium Chloride Carbon Dioxide BUN Creatinine Glucose POC Glucose 160 H 201 H Calcium Phosphorus Magnesium Ferritin AST Alkaline Phosphatase Lactate Dehydrogenase Troponin T Total Protein Albumin HDL Cholesterol Arterial Blood Glucose 214 H Arterial Blood Ionized Calcium 3.3 L Crossmatch 09/09/20 09/09/20 09/09/20 05:55 09:52 14:20 WBC RBC Hgb Hct MCV MCH RDW Plt Count Lymph % (Auto) Harmon % (Auto) Lymph # (Auto) Seg Neutrophils % Seg Neuts % (Manual) Lymphocytes % (Manual) Nucleated RBC % Seg Neutrophils # Seg Neutrophils # Man Lymphocytes # (Manual) D-Dimer ABG pH POC ABG pCO2 POC ABG pO2 ABG HCO3 ABG Base Excess ABG Hemoglobin ABG Oxyhemoglobin ABG Sodium ABG Potassium ABG Chloride ABG Glucose Oxyhemoglobin Carboxyhemoglobin Sodium Potassium Chloride Carbon Dioxide BUN Creatinine Glucose POC Glucose 190 H 159 H 161 H Calcium Phosphorus Magnesium Ferritin AST Alkaline Phosphatase Lactate Dehydrogenase Troponin T Total Protein Albumin HDL Cholesterol Arterial Blood Glucose Arterial Blood Ionized Calcium Crossmatch 09/09/20 09/10/20 09/10/20 17:45 02:10 03:07 WBC RBC Hgb Hct MCV MCH RDW Plt Count Lymph % (Auto) [place] % (Auto) Lymph # (Auto) Seg Neutrophils % Seg Neuts % (Manual) Lymphocytes % (Manual) Nucleated RBC % Seg Neutrophils # Seg Neutrophils # Man Lymphocytes # (Manual) D-Dimer ABG pH POC ABG pCO2 POC ABG pO2 63.5 L ABG HCO3 ABG Base Excess ABG Hemoglobin 7.0 L ABG Oxyhemoglobin 88.3 L ABG Sodium 130.1 L ABG Potassium 5.0 H ABG Chloride 87.0 L ABG Glucose Oxyhemoglobin Carboxyhemoglobin Sodium Potassium Chloride Carbon Dioxide BUN Creatinine Glucose POC Glucose 140 H 116 H Calcium Phosphorus Magnesium Ferritin AST Alkaline Phosphatase Lactate Dehydrogenase Troponin T Total Protein Albumin HDL Cholesterol Arterial Blood Glucose Arterial Blood Ionized Calcium 3.2 L Crossmatch 09/10/20 09/10/20 09/10/20 06:34 07:15 07:15 WBC RBC 1.88 L Hgb 6.5 L Hct 19.1 L* MCV 102 H MCH 34 H RDW 17.5 H Plt Count 121 L Lymph % (Auto) Harmon % (Auto) Lymph # (Auto) Seg Neutrophils % Seg Neuts % (Manual) 93.0 H Lymphocytes % (Manual) 4.0 L Nucleated RBC % Seg Neutrophils # Seg Neutrophils # Man 8.8 H Lymphocytes # (Manual) 0.4 L D-Dimer ABG pH POC ABG pCO2 POC ABG pO2 ABG HCO3 ABG Base Excess ABG Hemoglobin ABG Oxyhemoglobin ABG Sodium ABG Potassium ABG Chloride ABG Glucose Oxyhemoglobin Carboxyhemoglobin Sodium Potassium 5.2 H Chloride 84.4 L Carbon Dioxide BUN 189 H Creatinine 12.4 H Glucose 118 H POC Glucose 125 H Calcium 6.8 L Phosphorus Magnesium Ferritin AST Alkaline Phosphatase Lactate Dehydrogenase Troponin T Total Protein Albumin HDL Cholesterol Arterial Blood Glucose Arterial Blood Ionized Calcium Crossmatch 09/10/20 09/10/20 09/10/20 08:35 09:05 21:47 WBC RBC Hgb Hct MCV MCH RDW Plt Count Lymph % (Auto) [place] % (Auto) Lymph # (Auto) Seg Neutrophils % Seg Neuts % (Manual) Lymphocytes % (Manual) Nucleated RBC % Seg Neutrophils # Seg Neutrophils # Man Lymphocytes # (Manual) D-Dimer ABG pH POC ABG pCO2 POC ABG pO2 ABG HCO3 ABG Base Excess ABG Hemoglobin ABG Oxyhemoglobin ABG Sodium ABG Potassium ABG Chloride ABG Glucose Oxyhemoglobin Carboxyhemoglobin Sodium Potassium Chloride Carbon Dioxide BUN Creatinine Glucose POC Glucose 107 H 66 L Calcium Phosphorus Magnesium Ferritin AST Alkaline Phosphatase Lactate Dehydrogenase Troponin T Total Protein Albumin HDL Cholesterol Arterial Blood Glucose Arterial Blood Ionized Calcium Crossmatch See Detail 09/10/20 09/11/20 09/11/20 23:35 00:02 10:13 WBC RBC Hgb Hct MCV MCH RDW Plt Count Lymph % (Auto) [place] % (Auto) Lymph # (Auto) Seg Neutrophils % Seg Neuts % (Manual) Lymphocytes % (Manual) Nucleated RBC % Seg Neutrophils # Seg Neutrophils # Man Lymphocytes # (Manual) D-Dimer ABG pH POC ABG pCO2 POC ABG pO2 ABG HCO3 ABG Base Excess ABG Hemoglobin ABG Oxyhemoglobin ABG Sodium ABG Potassium ABG Chloride ABG Glucose Oxyhemoglobin Carboxyhemoglobin Sodium Potassium Chloride Carbon Dioxide BUN Creatinine Glucose POC Glucose 129 H 133 H 120 H Calcium Phosphorus Magnesium Ferritin AST Alkaline Phosphatase Lactate Dehydrogenase Troponin T Total Protein Albumin HDL Cholesterol Arterial Blood Glucose Arterial Blood Ionized Calcium Crossmatch 09/11/20 09/11/20 09/11/20 11:51 15:18 17:39 WBC RBC Hgb Hct MCV MCH RDW Plt Count Lymph % (Auto) [place] % (Auto) Lymph # (Auto) Seg Neutrophils % Seg Neuts % (Manual) Lymphocytes % (Manual) Nucleated RBC % Seg Neutrophils # Seg Neutrophils # Man Lymphocytes # (Manual) D-Dimer ABG pH POC ABG pCO2 POC ABG pO2 ABG HCO3 ABG Base Excess ABG Hemoglobin ABG Oxyhemoglobin ABG Sodium ABG Potassium ABG Chloride ABG Glucose Oxyhemoglobin Carboxyhemoglobin Sodium Potassium Chloride Carbon Dioxide BUN Creatinine Glucose POC Glucose 141 H 162 H 139 H Calcium Phosphorus Magnesium Ferritin AST Alkaline Phosphatase Lactate Dehydrogenase Troponin T Total Protein Albumin HDL Cholesterol Arterial Blood Glucose Arterial Blood Ionized Calcium Crossmatch 09/11/20 09/12/20 09/12/20 22:05 01:58 05:20 WBC RBC Hgb Hct MCV MCH RDW Plt Count Lymph % (Auto) [place] % (Auto) Lymph # (Auto) Seg Neutrophils % Seg Neuts % (Manual) Lymphocytes % (Manual) Nucleated RBC % Seg Neutrophils # Seg Neutrophils # Man Lymphocytes # (Manual) D-Dimer ABG pH POC ABG pCO2 POC ABG pO2 ABG HCO3 ABG Base Excess ABG Hemoglobin ABG Oxyhemoglobin ABG Sodium ABG Potassium ABG Chloride ABG Glucose Oxyhemoglobin Carboxyhemoglobin Sodium Potassium Chloride Carbon Dioxide BUN Creatinine Glucose POC Glucose 162 H 172 H 138 H Calcium Phosphorus Magnesium Ferritin AST Alkaline Phosphatase Lactate Dehydrogenase Troponin T Total Protein Albumin HDL Cholesterol Arterial Blood Glucose Arterial Blood Ionized Calcium Crossmatch 09/12/20 09/12/20 09/12/20 09:55 13:53 15:57 WBC RBC Hgb Hct MCV MCH RDW Plt Count Lymph % (Auto) [place] % (Auto) Lymph # (Auto) Seg Neutrophils % Seg Neuts % (Manual) Lymphocytes % (Manual) Nucleated RBC % Seg Neutrophils # Seg Neutrophils # Man Lymphocytes # (Manual) D-Dimer ABG pH POC ABG pCO2 POC ABG pO2 ABG HCO3 ABG Base Excess ABG Hemoglobin ABG Oxyhemoglobin ABG Sodium ABG Potassium ABG Chloride ABG Glucose Oxyhemoglobin Carboxyhemoglobin Sodium Potassium Chloride Carbon Dioxide BUN Creatinine Glucose POC Glucose 200 H 225 H 219 H Calcium Phosphorus Magnesium Ferritin AST Alkaline Phosphatase Lactate Dehydrogenase Troponin T Total Protein Albumin HDL Cholesterol Arterial Blood Glucose Arterial Blood Ionized Calcium Crossmatch 09/12/20 09/13/20 09/13/20 21:35 02:31 05:43 WBC RBC Hgb Hct MCV MCH RDW Plt Count Lymph % (Auto) [place] % (Auto) Lymph # (Auto) Seg Neutrophils % Seg Neuts % (Manual) Lymphocytes % (Manual) Nucleated RBC % Seg Neutrophils # Seg Neutrophils # Man Lymphocytes # (Manual) D-Dimer ABG pH POC ABG pCO2 POC ABG pO2 ABG HCO3 ABG Base Excess ABG Hemoglobin ABG Oxyhemoglobin ABG Sodium ABG Potassium ABG Chloride ABG Glucose Oxyhemoglobin Carboxyhemoglobin Sodium Potassium Chloride Carbon Dioxide BUN Creatinine Glucose POC Glucose 202 H 133 H 147 H Calcium Phosphorus Magnesium Ferritin AST Alkaline Phosphatase Lactate Dehydrogenase Troponin T Total Protein Albumin HDL Cholesterol Arterial Blood Glucose Arterial Blood Ionized Calcium Crossmatch 09/13/20 07:49 WBC RBC Hgb Hct MCV MCH RDW Plt Count Lymph % (Auto) [place] % (Auto) Lymph # (Auto) Seg Neutrophils % Seg Neuts % (Manual) Lymphocytes % (Manual) Nucleated RBC % Seg Neutrophils # Seg Neutrophils # Man Lymphocytes # (Manual) D-Dimer ABG pH POC ABG pCO2 POC ABG pO2 ABG HCO3 ABG Base Excess ABG Hemoglobin ABG Oxyhemoglobin ABG Sodium ABG Potassium ABG Chloride ABG Glucose Oxyhemoglobin Carboxyhemoglobin Sodium Potassium Chloride Carbon Dioxide BUN Creatinine Glucose POC Glucose 169 H Calcium Phosphorus Magnesium Ferritin AST Alkaline Phosphatase Lactate Dehydrogenase Troponin T Total Protein Albumin HDL Cholesterol Arterial Blood Glucose Arterial Blood Ionized Calcium Crossmatch Allied health notes reviewed: RT
--- NOTE | 2020-09-13 08:50 | Progress Note ---
Assessment and Plan - Patient Problems (1) Anoxic encephalopathy Current Visit: Yes Status: Acute Plan to address problem: Anoxic encephalopathy. No significant improvement so far. Patient's family now agreeing to hospice. Agree with transfer once arrangements completed. Poor prognosis (2) Hyperkalemia Current Visit: Yes Status: Acute Plan to address problem: Emergent dialysis was done for hyperkalemia. Potassium is back to normal. No further lab draws since patient going to hospice. (3) Cardiac arrest Current Visit: Yes Status: Acute Plan to address problem: Etiology uncertain. Patient with anoxic encephalopathy. Family now agreeing to transfer to hospice. Prognosis is poor (4) End-stage renal disease on hemodialysis Current Visit: Yes Status: Chronic Plan to address problem: No more dialysis since patient is being transferred to hospice. (5) Hypertensive urgency Current Visit: Yes Status: Acute Plan to address problem: Blood pressure was elevated on presentation but has improved. Follow-up blood pressure on current medications Subjective Date of service: 09/13/20 Principal diagnosis: Cardiac arrest; Ac. hypoxemic resp failure; PNA; ESRD; NSTEMI; Hyperkalemia Interval history: Patient seen lying in bed in the ICU. Condition is about the same. She is not on vasopressors. Family is apparently agreeing to hospice but requesting a facility closer to home Objective - Exam Narrative Exam: Middle-aged -[place] female lying in bed in ICU intubated on ventilator HEENT: NCAT, moving her eyes not purposefully, Neck: Supple, no venous distention CVS: S1S2 RRR with no murmur, rub or gallop Chest: Clear to auscultation Abdomen: Protuberant, soft to firm, nontender, no organomegaly, bowel sounds are present Extremities: No edema Genitourinary deferred Skin warm and dry no rash Neuro: Eyes open, moving her eyes nonpurposefully, not following commands - Vital Signs Vital signs: Vital Signs - 12hr 09/12/20 09/12/20 09/12/20 21:00 21:30 21:45 Temperature Pulse Rate 57 L 59 L 52 L Pulse Rate [ From Monitor] Respiratory 17 12 Rate Blood Pressure 138/45 138/41 138/41 O2 Sat by Pulse 100 100 Oximetry 09/12/20 09/12/20 09/12/20 22:00 22:30 22:32 Temperature Pulse Rate 60 61 60 Pulse Rate [ From Monitor] Respiratory 12 12 12 Rate Blood Pressure 139/40 140/42 140/42 O2 Sat by Pulse 100 100 100 Oximetry 09/12/20 09/12/20 09/12/20 23:00 23:30 23:36 Temperature Pulse Rate 61 61 61 Pulse Rate [ From Monitor] Respiratory 15 13 Rate Blood Pressure 139/41 144/45 146/44 O2 Sat by Pulse 100 100 100 Oximetry 09/13/20 09/13/20 09/13/20 00:00 00:30 01:00 Temperature 97.1 F L Pulse Rate 61 61 61 Pulse Rate [ 56 L From Monitor] Respiratory 14 13 13 Rate Blood Pressure 146/45 147/46 138/42 O2 Sat by Pulse 100 100 100 Oximetry 09/13/20 09/13/20 09/13/20 01:30 02:00 02:30 Temperature Pulse Rate 60 61 61 Pulse Rate [ From Monitor] Respiratory 13 12 13 Rate Blood Pressure 144/47 136/42 143/46 O2 Sat by Pulse 100 100 100 Oximetry 09/13/20 09/13/20 09/13/20 03:00 03:30 03:33 Temperature Pulse Rate 62 61 61 Pulse Rate [ From Monitor] Respiratory 14 14 Rate Blood Pressure 144/46 147/47 142/43 O2 Sat by Pulse 100 100 100 Oximetry 09/13/20 09/13/20 09/13/20 03:51 04:00 04:30 Temperature 97.4 F L Pulse Rate 62 63 Pulse Rate [ 61 From Monitor] Respiratory 18 20 Rate Blood Pressure 149/46 153/46 O2 Sat by Pulse 100 100 Oximetry 09/13/20 09/13/20 09/13/20 05:00 05:30 05:52 Temperature Pulse Rate 64 62 51 L Pulse Rate [ From Monitor] Respiratory 13 16 Rate Blood Pressure 148/44 152/51 145/52 O2 Sat by Pulse 100 98 Oximetry 09/13/20 09/13/20 09/13/20 06:00 06:30 07:00 Temperature 97.9 F Pulse Rate 60 62 62 Pulse Rate [ From Monitor] Respiratory 15 13 16 Rate Blood Pressure 137/49 146/52 145/52 O2 Sat by Pulse 95 96 96 Oximetry 09/13/20 09/13/20 09/13/20 07:30 08:00 08:15 Temperature Pulse Rate 61 62 62 Pulse Rate [ 57 L From Monitor] Respiratory 14 14 Rate Blood Pressure 144/52 145/51 150/52 O2 Sat by Pulse 95 95 98 Oximetry - Lab 09/10/20 07:15 09/10/20 07:15 Most recent lab results ABG pH 7.381 (7.320-7.450) 09/10/20 03:07 ABG pCO2 38.0 mm Hg 09/02/20 03:40 ABG pO2 83.1 mm Hg (80.0-90.0) 09/02/20 03:40 ABG HCO3 29.4 mmol/L (20.0-26.0) H 09/02/20 03:40 ABG O2 Saturation 89.5 (0-100) 09/10/20 03:07 Calcium 6.8 mg/dL (8.4-10.2) L 09/10/20 07:15 Phosphorus 11.50 mg/dL (2.5-4.5) H 08/30/20 00:15 Magnesium 3.80 mg/dL (1.7-2.3) H 08/30/20 00:15 Medications & Allergies - Medications Allergies/Adverse Reactions: Allergies No Known Allergies Allergy (Verified 08/30/20 22:43) Home Medications: Home Medications Medication Instructions Recorded Confirmed Last Taken Type Acyclovir [Zovirax Tab] 400 mg PO BID 08/30/20 08/30/20 Unknown History Amlodipine Besylate 10 mg PO DAILY 08/30/20 08/30/20 Unknown History Furosemide [Lasix] 40 mg PO DAILY 08/30/20 08/30/20 Unknown History Gabapentin [Neurontin] 600 mg PO BID 08/30/20 08/30/20 Unknown History Imdur ER 30 mg PO DAILY 08/30/20 08/30/20 Unknown History Losartan Potassium 50 mg PO BID 08/30/20 08/30/20 Unknown History Losartan/Hydrochlorothiazide 1 each PO DAILY 08/30/20 08/30/20 Unknown History [Losartan-Hctz 100-25 mg Tab] Metoprolol Tartrate 25 mg PO BID 08/30/20 08/30/20 Unknown History Mirtazapine [Remeron] 30 mg PO HS 08/30/20 08/30/20 Unknown History Sevelamer Carbonate [Renvela] 800 mg PO TIDWM 08/30/20 08/30/20 Unknown History Vit B Complx C/Folic Acid/Zinc 0.8 mg PO DAILY 08/30/20 08/30/20 Unknown History [Dialyvite 800-Zinc 15 Tab] Zolpidem Tartrate [Edluar SUBL] 5 mg PO QHS PRN 08/30/20 08/30/20 Unknown History calcitrioL 0.5 mcg PO DAILY 08/30/20 08/30/20 Unknown History Active Medications: Generic Name Dose Route Start Last Admin Trade Name Freq PRN Reason Stop Dose Admin Acetaminophen 650 mg 09/01/20 00:27 09/04/20 04:34 Acetaminophen 325 Mg/10.15 Ml Oral Liqd Unit Dose FEEDTUBE 650 mg Q6H PRN Administration Non Cardiac Pain or Temp>100.5 Amlodipine Besylate 10 mg 09/03/20 11:00 09/12/20 09:06 Amlodipine 10 Mg Tab PO Not Given QDAY ANIYAH Lipase/Protease/Amylase 1 each 08/30/20 14:27 Lipase 10,500/Protease 25,000/Amylase 43,750 (Units) Dr Duran FEEDTUBE PRN PRN For Clogged Feeding Tube Dextrose 50 ml 08/30/20 19:48 09/10/20 22:31 Dextrose 50% In Water (25gm) 50 Ml Syringe IV 50 ml Q30MIN PRN Administration Hypoglycemia Protocol Famotidine 20 mg 09/02/20 10:00 09/12/20 09:05 Famotidine 20 Mg Tab PO 20 mg DAILY ANIYAH Administration Heparin Sodium (Porcine) 5,000 unit 08/30/20 06:00 09/13/20 05:50 Heparin 5,000 Unit/1 Ml Vial SUB-Q 5,000 unit Q8HR ANIYAH Administration Hydralazine HCl 10 mg 08/31/20 18:14 09/04/20 04:34 Hydralazine 20 Mg/1 Ml Inj IV 10 mg Q4HR PRN Administration Hypertension Hydrophilic Ointment 1 applic 08/30/20 14:05 Lip Therapy Vaseline TP Q2HR PRN Dry Lips Sodium Chloride 100 mls @ 999 mls/hr 09/10/20 13:00 Nacl 0.9% IV ARMIDA PRN Hypotension Sodium Chloride 100 mls @ 999 mls/hr 09/10/20 13:00 Nacl 0.9% IV ARMIDA PRN Hypotension Insulin Glargine 30 units 09/03/20 10:00 09/12/20 09:06 Insulin Glargine 100 Units/Ml SUB-Q Not Given DAILY [facility] Insulin Human Lispro 5 unit 09/04/20 08:00 09/12/20 20:50 Insulin Lispro 100 Unit/Ml SUB-Q 5 unit TID ANIYAH Administration Insulin Human Regular 0 units 09/01/20 10:00 09/13/20 05:50 Insulin Regular, Human 100 Units/1 Ml SUB-Q Not Given Q4HR [facility] Protocol Levetiracetam 750 mg 09/04/20 22:00 09/12/20 21:44 Levetiracetam 500 Mg/5 Ml Oral Liqd PO 750 mg BID ANIYAH Administration Magnesium Hydroxide 30 ml 08/30/20 04:41 Magnesium Hydroxide (Mom) Oral Liqd Udc PO Q4H PRN Constipation Metoprolol Tartrate 50 mg 09/03/20 11:00 09/12/20 21:45 Metoprolol Tartrate 50 Mg Tab PO Not Given BID [facility] Multi-Ingred Cream/Lotion/Oil/Oint 1 applic 08/30/20 14:05 09/09/20 09:00 Mineral Oil/Petrolatum, White Ophth Oint 3.5 Gm OU 1 applic Q4HR PRN Administration Dry Eye(s) Nitroglycerin 0.4 mg 09/04/20 06:00 09/13/20 05:52 Nitroglycerin 0.4 Mg Patch 24hr TD Not Given QDAY@0600 [facility] Ondansetron HCl 4 mg 08/30/20 04:41 Ondansetron 4 Mg/2 Ml Inj IV Q8H PRN Nausea And Vomiting Senna/Docusate Sodium 1 tab 08/30/20 22:00 09/12/20 21:46 Sennosides/Docusate Sodium 8.6/50 Mg Tab FEEDTUBE Not Given BID [facility] Simple Syrup 15 ml 08/30/20 14:27 Simple Syrup 15 Ml FEEDTUBE PRN PRN Hypoglycemia Simple Syrup 30 ml 08/30/20 14:27 Simple Syrup 15 Ml FEEDTUBE PRN PRN Hypoglycemia Sodium Bicarbonate 325 mg 09/11/20 15:32 Sodium Bicarbonate 325 Mg Tab FEEDTUBE PRN PRN For Clogged Feeding Tube Sodium Chloride 10 ml 08/30/20 10:00 09/12/20 21:49 Sodium Chloride 0.9% 10 Ml Flush Syringe IV 10 ml BID ANIYAH Administration Sodium Chloride 10 ml 08/30/20 04:41 Sodium Chloride 0.9% 10 Ml Flush Syringe IV PRN PRN LINE FLUSH
[2020-09-13] MEDS: SENNOSIDES/DOCUSATE SODIUM 8.6/50 MG TAB FEEDTUBE SCH ×2 (09:22→21:36)
[2020-09-13] MEDS: FAMOTIDINE 20 MG TAB PO SCH (09:22)
[2020-09-13] MEDS: levETIRAcetam 500 MG/5 ML ORAL LIQD PO SCH ×2 (09:22→21:36)
[2020-09-13] MEDS: INSULIN LISPRO 100 UNIT/ML SUB-Q SCH ×3 (09:23→20:35)
[2020-09-13] MEDS: INSULIN GLARGINE 100 UNITS/ML SUB-Q SCH (09:23)
[2020-09-13] MEDS: METOPROLOL TARTRATE 50 MG TAB PO SCH ×2 (09:23→21:36)
[2020-09-13] MEDS: amLODIPine 10 MG TAB PO SCH (09:23)
--- NOTE | 2020-09-13 15:16 | Progress Note ---
Assessment and Plan This is 65-year-old female with DM, HTN, HLD, ESRD on HD MWF, multiple myeloma s/p chemotherapy and stem cell transplant and current tobacco abuse who was admitted s/p cardiac arrest with anoxic encephalopathy, hypertensive emergency, multifocal pneumonia and has a COVID-19 PUI S/p out of hospital cardiac arrest with CPR per ACLS protocol -Continue supportive care, cardiology following Anoxic encephalopathy/global/diffuse anoxic brain injury -Evidenced on MRI on 09/01 -Neurology consulted and recommends palliative care and has signed off -Continue supportive care Possible seizure activity -Continue Keppra -Aspiration/seizure precautions Acute hypoxic respiratory failure -Continue mechanical ventilation -Wean as tolerated -CCM consulted, appreciate recommendations -Pulmonary hygiene -VAP bundle Severe cardiomegaly -Cardiology consulted, appreciate recommendations -Continue diuretics, beta-blockers, BENJAMIN inhibitors Anemia -09/10 H/H 6.5/19.1 -S/p 1 unit PRBC -Trend CBC -Transfuse for hemoglobin less than 7 Hypertension -Patient had periods of hypotension which required IV fluid resuscitation -Continue antihypertensive regimen as tolerated -Blood pressure monitoring per protocol ESRD on HD -Nephrology consulted, appreciate recommendations -Nephrology has put hemodialysis on hold in view of possible hospice transition -Strict intake and output -Avoid nephrotoxic medications Pericardial effusion -Stable Type 2 diabetes mellitus -SSI, long-acting insulin, titrate as needed -Accu-Cheks every 6 -Tube feedings Transaminitis -Trend LFTs History of multiple myeloma -Follows with hematology oncologist at [facility] Current tobacco abuse DVT/GI prophylaxis: Subcu heparin, SCDs Protonix, Disposition: ICU for now. possible hospice transfer DNR The high probability of a clinically significant, sudden or life threatening deterioration of the [multi] system(s) required my full and direct attention, intervention and personal management. The aggregate critical care time was [35] minutes. This time is in addition to time spent performing reported procedures but includes the following: [x] Data Review and interpretation [x] Patient assessment and monitoring of vital signs [x] Documentation [x] Medication orders and management Subjective Principal diagnosis: Cardiac arrest; Ac. hypoxemic resp failure; PNA; ESRD; NSTEMI; Hyperkalemia Interval history: This is 65-year-old female with diabetes mellitus, hypertension, hyperlipidemia, ESRD on HD MWF via left chest permacath, multiple myeloma s/p chemotherapy and stem cell transplant with right chest port, immature right upper extremity aVF and current tobacco abuse who presented to the emergency department on 08/30 s/p cardiac arrest after being found laying in driveway, unresponsive and in asystole by EMS after being called for shortness of breath. Patient was intubated by EMS and received 3 mg epinephrine, calcium and serum bicarbonate and ROSC was eventually achieved after 10 minutes of resuscitation. Recommend emergency department revealed hyperkalemia, CXR showed moderate enlargement of cardiac silhouette, diffuse bilateral mixed interstitial and airspace disease with considerations to pulmonary edema or multifocal infectious process. Patient was admitted to the hospitalist service s/p cardiac arrest with anoxic encephalopathy, ESRD on HD, hypertensive emergency, multifocal pneumonia and a and has a COVID-19 PUI. CCM, nephrology, neurology infectious disease and c ardiology were consulted. 08/30: This morning neurology was consulted, patient noted to have leukocytosis, hyperkalemia, metabolic acidosis and hyperglycemia. Patient had hyperphosphatemia, hypomagnesemia also. Patient had hemodialysis today per nephrology. COVID-19 PCR negative. Patient was in ED holding and admitted to the ICU later during the day. Patient is sedated on fentanyl and propofol. At the time my examination she was assist-control, rate of 28, tidal and 450, 60 PEEP and FiO2 of 60%. 08/31: Patient received hemodialysis however she is hyperkalemia again which was treated with dextrose, insulin and Kionex. Patient received hemodialysis again today per nephrology. Patient continues with with meropenem until blood cultures per infectious disease. MRI brain and EEG pending, lactulose discontinued (which was started due to large stool burden). We will follow up on cultures and BMP. Patient also noted to be hyperglycemic and was started on long acting insulin. Family updated at bedside by nurse mahmood and Dr. Garces. 09/01: Patient was noted to be hypertensive yesterday evening and today so cardiology will start the patient on a nitroglycerin drip and IV metoprolol. CCM reduced rate. Patient received hemodialysis today and scheduled for MRI brain. Patient noted to be hyperkalemic and follow-up BMP shows a potassium of 4. Patient's MRI brain showed diffuse anoxic brain injury and Dr. Garces updated the family at bedside. 09/02: Patient had an MRI brain yesterday which showed global anoxic brain injury. At the time of my examination patient was on PCV CPAP with tidal volume 450, FiO2 of 30. Patient is hyperglycemic and insulin dosage increased. Family decision has not been made, Dr. Silva and Dr./ Garces updated family. Neurology has signed off 09/03: Patient continues to be hypoglycemic and long-acting insulin dosage increased. She is receiving hemodialysis today. Patient has a referral to inpatient hospice. No acute events reported overnight. CM speaking to family re hospice. Cardio changed BP medications to PO. CCM to discuss goals of care and rT to rest daily on AC at night/continue CPAP trials during the day. 09/04: Patient was noted to have possible seizure activity and was given 2 mg of Ativan by CCM. Patient was later hypotensive tensive and received a 250 mL normal saline bolus which was communicated to nephrology. Per nephrology will like to avoid excessive fluid boluses to prevent issues with fluid overload over the weekend. At the time of my exam patient was on assist control tidal line 450, rate of 12, PEEP of 6 and 25% FiO2. Patient noted to be hyper glycemic and long-acting insulin was changed. 09/05: Patient continues to be unresponsive, Keppra was added for possible seizure disorder yesterday. No family at the bedside, patient to go to hospice most likely on Sunday. 09/07; awaiting hospice placement, pending family's decision. Hyper kalemia, insulin and dextrose, IV calcium gluconate and Kayexalate Very poor prognosis, full CODE STATUS 09/08; clinically no change, patient remained intubated on ventilator support. Ventilatory settings; AC, 450 tidal volume, FiO2 45%, PEEP 8, peak flow 60 Family considering hospice, pending decision 09/09; clinically no change, intubated on ventilatory support. Severe anoxic brain injury, family still have to make the decision for hospice 09/10; surgery evaluation noted, surgery recommended trach and PEG. The daughter refused, she is still considering hospice placement, DC planning per case management 09/11/2020 Family gave permission for DNR, Family to decide about hospice 09/12/2020 Family will decide about hospice today, We will discuss with family again today 09/13: Patient was accepted to another facility and awaiting paperwork completion for admission. Possible admission likely tomorrow given need for respiratory staff at the hospice. At the time of my examination patient is on assist control tidal volume 450, rate of 12, PEEP of 6 and FiO2 of 45%. Objective - Constitutional Vitals: Vital Signs - 12hr 09/13/20 09/13/20 09/13/20 03:30 03:33 03:51 Temperature 97.4 F L Pulse Rate 61 61 Pulse Rate [ From Monitor] Respiratory 14 Rate Blood Pressure 147/47 142/43 O2 Sat by Pulse 100 100 Oximetry 09/13/20 09/13/20 09/13/20 04:00 04:30 05:00 Temperature Pulse Rate 62 63 64 Pulse Rate [ 61 From Monitor] Respiratory 18 20 13 Rate Blood Pressure 149/46 153/46 148/44 O2 Sat by Pulse 100 100 100 Oximetry 09/13/20 09/13/20 09/13/20 05:30 05:52 06:00 Temperature Pulse Rate 62 51 L 60 Pulse Rate [ From Monitor] Respiratory 16 15 Rate Blood Pressure 152/51 145/52 137/49 O2 Sat by Pulse 98 95 Oximetry 09/13/20 09/13/20 09/13/20 06:30 07:00 07:30 Temperature 97.9 F Pulse Rate 62 62 61 Pulse Rate [ From Monitor] Respiratory 13 16 14 Rate Blood Pressure 146/52 145/52 144/52 O2 Sat by Pulse 96 96 95 Oximetry 09/13/20 09/13/20 09/13/20 08:00 08:15 11:00 Temperature 98.1 F Pulse Rate 62 62 Pulse Rate [ 57 L From Monitor] Respiratory 14 Rate Blood Pressure 145/51 150/52 O2 Sat by Pulse 95 98 Oximetry 09/13/20 11:01 Temperature Pulse Rate 62 Pulse Rate [ From Monitor] Respiratory Rate Blood Pressure 155/52 O2 Sat by Pulse 99 Oximetry General appearance: Present: no acute distress, other (unresposive to painful stimuli) - EENT Eyes: no PERRL (pupils not reactive to light/ accomadation), no EOM intact, conjunctival injection ENT: dentition normal - Neck Neck: no masses or JVD, no cervical LAD - Respiratory Respiratory effort: normal Respiratory: bilateral: rhonchi - Cardiovascular Rhythm: regular Heart Sounds: Present: S1 & S2. Absent: systolic murmur, diastolic murmur Extremities: no ischemia, pulses intact, pulses symmetrical, normal temperature, normal color Extremity abnormal: edema - Gastrointestinal General gastrointestinal: Present: soft, non-tender, non-distended, normal bowel sounds - Integumentary Integumentary: warm, dry - Musculoskeletal Musculoskeletal: no strength equal bilaterally - Neurologic Neurologic: no CNII-XII intact, no moves all extremities - Psychiatric Psychiatric: other (not interactive) - Allied health notes Allied health notes reviewed: nursing, social work - Labs CBC & Chem 7: 09/10/20 07:15 09/10/20 07:15 Labs: Abnormal lab results 09/12/20 09/12/20 09/13/20 Range/Units 15:57 21:35 02:31 POC Glucose 219 H 202 H 133 H (70-105) mg/dL 09/13/20 09/13/20 09/13/20 Range/Units 05:43 07:49 11:29 POC Glucose 147 H 169 H 215 H (70-105) mg/dL 09/13/20 Range/Units 14:22 POC Glucose 179 H (70-105) mg/dL HEART Score - HEART Score EKG: Normal Age: > 65 Troponin: Troponin T 0.085 ng/mL (0.00-0.029) H 08/30/20 00:15 Troponin: < normal limit - Critical Actions Critical Actions: 0-3 pts:0.9-1.7%risk of adverse cardiac event.Candidate for discharge
[2020-09-13 16:30] LABS: Calcium 6.2 mg/dL (8.4-10.2)
[2020-09-13 16:34] LABS: Hematocrit 22.8 % (30.3-42.9); Hemoglobin 7.6 gm/dl (10.1-14.3); Mean Corpuscular HGB Conc 33 % (30-34); Mean Corpuscular Volume 101 fl (79-97); Platelet Count 112 K/mm3 (140-440); Red Blood Count 2.26 M/mm3 (3.65-5.03); Red Cell Distribution Width 19.1 % (13.2-15.2)
[2020-09-13] MEDS ORDERED: DEXTROSE 50% IN WATER (25GM) 50 ML SYRINGE IV ONE (18:35)
[2020-09-13] MEDS ORDERED: INSULIN REGULAR, HUMAN 100 UNITS/1 ML IV ONE (18:35)
[2020-09-13] MEDS ORDERED: CALCIUM GLUCONATE 1,000 MG in SODIUM CHLORIDE 0.9% 100 ML IV ONE (18:35)
[2020-09-14] MEDS: INSULIN REGULAR, HUMAN 100 UNITS/1 ML SUB-Q SCH ×4 (02:11→13:44)
[2020-09-14] MEDS: NITROGLYCERIN 0.4 MG PATCH 24HR TD SCH (06:25)
[2020-09-14] MEDS: HEPARIN 5,000 UNIT/1 ML VIAL SUB-Q SCH ×2 (06:25→13:44)
[2020-09-14] MEDS: MIDODRINE 5 MG TAB PO SCH (08:11)
--- NOTE | 2020-09-14 08:27 | Discharge Summary ---
<SHAREdmundBONNIEVivi - Last Filed: 09/14/20 11:38> Providers - Providers Date of Admission: 08/30/20 02:30 Date of discharge: 09/14/20 Attending physician: CAIT WHEATLEY MD 08/30/20 03:52 Consult to Physician [CONS] Stat Comment: Consulting Provider: ROBERT SALINAS Physician Instructions: Reason For Exam: esrd hyperkalemia 08/30/20 04:41 Consult to Dietitian/Nutrition [CONS] Routine Physician Instructions: Reason For Exam: Reason for Consult: Diet education 08/30/20 04:45 Consult to Physician [CONS] Routine Comment: Consulting Provider: PATO NGUYEN Physician Instructions: Reason For Exam: CARDIAC ARREST 08/30/20 07:49 Consult to Physician [CONS] Routine Comment: Consulting Provider: GRICELDA GUTIERREZ Physician Instructions: Reason For Exam: Pneumonia rule out COVID-19. 08/30/20 08:58 Consult to Physician [CONS] Routine Comment: Consulting Provider: LISETH CAM Physician Instructions: Reason For Exam: s/p cardiac arrest 08/30/20 14:05 Consult to Dietitian/Nutrition [CONS] Routine Physician Instructions: Reason For Exam: Reason for Consult: Evaluate nutritional intake Consult to Dietitian/Nutrition [CONS] Routine Physician Instructions: Reason For Exam: Reason for Consult: Write/Manage Tube Feeding 09/09/20 14:11 Consult to Physician [CONS] Routine Comment: Consulting Provider: VIRGILIO DALEY Physician Instructions: Reason For Exam: Trach & PEG placement evaluation 09/11/20 15:33 Consult to Dietitian/Nutrition [CONS] Routine Physician Instructions: Assess nutrtn needs, initiate, modify, manage TF Reason For Exam: Reason for Consult: Write/Manage Tube Feeding Reason for Consult: Write/Manage Tube Feeding Primary care physician: [employer] Hospitalization Condition: Stable Hospital course: This is 65-year-old female with diabetes mellitus, hypertension, hyperlipidemia, ESRD on HD MWF via left chest permacath, multiple myeloma s/p chemotherapy and stem cell transplant with right chest port, immature right upper extremity aVF and current tobacco abuse who presented to the emergency department on 08/30 s/p cardiac arrest after being found laying in driveway, unresponsive and in asystole by EMS after being called for shortness of breath. Patient was intubated by EMS and received 3 mg epinephrine, calcium and serum bicarbonate and ROSC was eventually achieved after 10 minutes of resuscitation. Recommend emergency department revealed hyperkalemia, CXR showed moderate enlargement of cardiac silhouette, diffuse bilateral mixed interstitial and airspace disease with considerations to pulmonary edema or multifocal infectious process. Patient was admitted to the hospitalist service s/p cardiac arrest with anoxic encephalopathy, ESRD on HD, hypertensive emergency, multifocal pneumonia and a and has a COVID-19 PUI. CCM, nephrology, neurology infectious disease and cardiology were consulted. Patient received hemodialysis throughout her stay progress on 09/10. Patient was treated with antibiotics during her stay due to leukocytosis immunocompromised state per infectious disease. Patient has been on long-acting insulin Dr. Hernandez for hypoglycemia. Patient had MRI of her brain on 09/02 which showed global anoxic injury. Patient was noted to have possible seizure activity and was given 2 mg of Ativan and was started on Keppra throughout her stay. Patient had periods of hyperkalemia which were treated appropriately. Patient care will be transitioned to inpatient hospice A/P S/p out of hospital cardiac arrest with CPR per ACLS protocol -Continue supportive care, cardiology following Anoxic encephalopathy/global/diffuse anoxic brain injury -Evidenced on MRI on 09/01 -Neurology consulted and recommends palliative care and has signed off -Continue supportive care Possible seizure activity -Continue Keppra -Aspiration/seizure precautions Acute hypoxic respiratory failure -Continue mechanical ventilation -Wean as tolerated -CCM consulted, appreciate recommendations -Pulmonary hygiene -VAP bundle Severe cardiomegaly -Cardiology consulted, appreciate recommendations -Continue diuretics, beta-blockers, BENJAMIN inhibitors Anemia -09/10 H/H 6.5/19.1 -S/p 1 unit PRBC -Trend CBC -Transfuse for hemoglobin less than 7 Hypertension -Patient had periods of hypotension which required IV fluid resuscitation -Continue antihypertensive regimen as tolerated -Blood pressure monitoring per protocol ESRD on HD -Nephrology consulted, appreciate recommendations -Nephrology has put hemodialysis on hold in view of possible hospice transition -Strict intake and output -Avoid nephrotoxic medications Pericardial effusion -Stable Type 2 diabetes mellitus -SSI, long-acting insulin, titrate as needed -Accu-Cheks every 6 -Tube feedings Transaminitis -Trend LFTs History of multiple myeloma -Follows with hematology oncologist at [place] Current tobacco abuse -tobacco cessation Disposition: [id number] ([facility]) Final Discharge Diagnosis (Prints w/discharge instructions): Cardiac arrest; Acute hypoxemic resp failure; PNA; ESRD; NSTEMI; Hyperkalemia Time spent for discharge: 35 Core Measure Documentation - Palliative Care Palliative Care/ Comfort Measures: Hospice Care Exam - Constitutional Vitals: Temp Pulse Resp BP Pulse Ox 97.8 F 65 18 169/52 100 09/14/20 07:59 09/14/20 08:23 09/14/20 08:15 09/14/20 08:23 09/14/20 08:23 General appearance: Present: no acute distress, other (Unresponsive) - EENT Eyes: Absent: PERRL (Pupils are not reactive to light) ENT: dentition normal - Neck Neck: Absent: masses or JVD, cervical LAD - Respiratory Respiratory effort: normal Respiratory: bilateral: diminished - Cardiovascular Rhythm: regular Heart Sounds: Present: S1 & S2. Absent: systolic murmur, diastolic murmur - Extremities Extremities: no ischemia, pulses intact, pulses symmetrical, No edema, normal temperature, normal color Peripheral Pulses: within normal limits - Abdominal General gastrointestinal: Present: soft, non-tender, non-distended, normal bowel sounds - Integumentary Integumentary: Present: warm, dry - Musculoskeletal Musculoskeletal: other (Unresponsive to painful or verbal stimuli) - Psychiatric Psychiatric: other (Unresponsive. Not interactive) - Neurologic Neurologic: other (Does not respond to painful or verbal stimuli, weak cough, pupils not reactive to light) - Allied Health Allied health notes reviewed: nursing, RT, social work Plan Activity: advance as tolerated Diet: per dietitian instruction Care Plan Goals: Care is being transferred to inpatient hospice at [facility] Follow up with: FELIZ SALAS MD [Primary Care Provider] - 7 Days <CAIT WHEATLEY - Last Filed: 09/15/20 13:32> Providers - Providers Date of Admission: 08/30/20 02:30 Attending physician: CAIT WHEATLEY MD 08/30/20 03:52 Consult to Physician [CONS] Stat Comment: Consulting Provider: ROBERT SALINAS Physician Instructions: Reason For Exam: esrd hyperkalemia 08/30/20 04:41 Consult to Dietitian/Nutrition [CONS] Routine Physician Instructions: Reason For Exam: Reason for Consult: Diet education 08/30/20 04:45 Consult to Physician [CONS] Routine Comment: Consulting Provider: PATO NGUYEN Physician Instructions: Reason For Exam: CARDIAC ARREST 08/30/20 07:49 Consult to Physician [CONS] Routine Comment: Consulting Provider: GRICELDA GUTIERREZ Physician Instructions: Reason For Exam: Pneumonia rule out COVID-19. 08/30/20 08:58 Consult to Physician [CONS] Routine Comment: Consulting Provider: LISETH CAM Physician Instructions: Reason For Exam: s/p cardiac arrest 08/30/20 14:05 Consult to Dietitian/Nutrition [CONS] Routine Physician Instructions: Reason For Exam: Reason for Consult: Evaluate nutritional intake Consult to Dietitian/Nutrition [CONS] Routine Physician Instructions: Reason For Exam: Reason for Consult: Write/Manage Tube Feeding 09/09/20 14:11 Consult to Physician [CONS] Routine Comment: Consulting Provider: VIRGILIO DALEY Physician Instructions: Reason For Exam: Trach & PEG placement evaluation 09/11/20 15:33 Consult to Dietitian/Nutrition [CONS] Routine Physician Instructions: Assess nutrtn needs, initiate, modify, manage TF Reason For Exam: Reason for Consult: Write/Manage Tube Feeding Reason for Consult: Write/Manage Tube Feeding Primary care physician: [employer] Hospitalization Hospital course: Agree with assessment and plan, I personally saw the patient, patient will go to hospice per family request. Exam - Constitutional Vitals: Temp Pulse Resp BP Pulse Ox 97.8 F 64 18 174/62 99 09/14/20 12:00 09/14/20 12:46 09/14/20 12:00 09/14/20 12:46 09/14/20 12:46
--- NOTE | 2020-09-14 08:38 | Progress Note ---
Assessment and Plan - Patient Problems (1) Anoxic encephalopathy Current Visit: Yes Status: Acute Plan to address problem: Anoxic encephalopathy. No significant improvement so far. Patient's family now agreeing to hospice. Agree with transfer once arrangements completed. Poor prognosis. We will sign off (2) Hyperkalemia Current Visit: Yes Status: Acute Plan to address problem: Emergent dialysis was done for hyperkalemia. Potassium was back to normal but high yesterday. Unclear why labs were drawn as patient is hospice and no further dialysis planned. No further lab draws please since patient going to hospice. Plan is to keep patient comfortable (3) Cardiac arrest Current Visit: Yes Status: Acute Plan to address problem: Etiology uncertain. Patient with anoxic encephalopathy. Family now agreeing to transfer to hospice. Prognosis is poor (4) End-stage renal disease on hemodialysis Current Visit: Yes Status: Chronic Plan to address problem: No more dialysis since patient is being transferred to hospice. (5) Hypertensive urgency Current Visit: Yes Status: Acute Plan to address problem: Blood pressure was elevated on presentation but has improved. Follow-up blood pressure on current medications Subjective Date of service: 09/14/20 Principal diagnosis: Cardiac arrest; Ac. hypoxemic resp failure; PNA; ESRD; NSTEMI; Hyperkalemia Interval history: Patient seen lying in bed in the ICU. Condition is about the same. She is not on vasopressors. Family has agreed to hospice and patient is to be transferred at 1 PM today Objective - Exam Narrative Exam: Middle-aged -[place] female lying in bed in ICU intubated on ventilator HEENT: NCAT, moving her eyes not purposefully, Neck: Supple, no venous distention CVS: S1S2 RRR with no murmur, rub or gallop Chest: Clear to auscultation Abdomen: Protuberant, soft to firm, nontender, no organomegaly, bowel sounds are present Extremities: No edema Genitourinary deferred Skin warm and dry no rash Neuro: Eyes open, moving her eyes nonpurposefully, not following commands - Vital Signs Vital signs: Vital Signs - 12hr 09/13/20 09/13/20 09/13/20 21:00 21:30 22:00 Temperature Pulse Rate 64 63 64 Pulse Rate [ From Monitor] Respiratory 17 19 19 Rate Blood Pressure 163/52 159/52 158/51 O2 Sat by Pulse 94 94 95 Oximetry 09/13/20 09/13/20 09/13/20 22:30 23:00 23:30 Temperature Pulse Rate 64 63 62 Pulse Rate [ From Monitor] Respiratory 19 16 19 Rate Blood Pressure 162/51 164/53 166/53 O2 Sat by Pulse 95 96 95 Oximetry 09/13/20 09/14/20 09/14/20 23:42 00:00 00:02 Temperature 97.8 F Pulse Rate 63 63 Pulse Rate [ 64 From Monitor] Respiratory 18 16 Rate Blood Pressure 165/55 165/55 O2 Sat by Pulse 95 99 Oximetry 09/14/20 09/14/20 09/14/20 00:10 00:30 01:00 Temperature Pulse Rate 63 63 64 Pulse Rate [ From Monitor] Respiratory 16 17 Rate Blood Pressure 165/55 167/54 166/54 O2 Sat by Pulse 99 95 95 Oximetry 09/14/20 09/14/20 09/14/20 01:30 02:00 02:30 Temperature Pulse Rate 63 64 64 Pulse Rate [ From Monitor] Respiratory 14 15 14 Rate Blood Pressure 166/54 165/52 167/52 O2 Sat by Pulse 95 96 96 Oximetry 09/14/20 09/14/20 09/14/20 03:00 03:09 03:30 Temperature 97.6 F Pulse Rate 63 64 Pulse Rate [ From Monitor] Respiratory 14 18 Rate Blood Pressure 163/52 162/51 O2 Sat by Pulse 95 95 Oximetry 09/14/20 09/14/20 09/14/20 04:00 04:08 04:30 Temperature Pulse Rate 63 63 63 Pulse Rate [ 63 From Monitor] Respiratory 13 13 Rate Blood Pressure 163/51 163/51 159/50 O2 Sat by Pulse 96 99 Oximetry 09/14/20 09/14/20 09/14/20 05:00 05:30 06:00 Temperature Pulse Rate 64 64 64 Pulse Rate [ From Monitor] Respiratory 15 15 16 Rate Blood Pressure 168/54 166/53 164/52 O2 Sat by Pulse 96 96 95 Oximetry 09/14/20 09/14/20 09/14/20 06:25 06:30 07:00 Temperature Pulse Rate 64 63 65 Pulse Rate [ From Monitor] Respiratory 16 17 Rate Blood Pressure 166/53 166/51 164/53 O2 Sat by Pulse 95 95 Oximetry 09/14/20 09/14/20 09/14/20 07:30 07:59 08:10 Temperature 97.8 F Pulse Rate 64 66 Pulse Rate [ From Monitor] Respiratory 14 Rate Blood Pressure 164/52 168/52 O2 Sat by Pulse 96 99 Oximetry 09/14/20 09/14/20 08:15 08:23 Temperature Pulse Rate 66 65 Pulse Rate [ From Monitor] Respiratory 18 Rate Blood Pressure 169/52 169/52 O2 Sat by Pulse 99 100 Oximetry - Lab 09/13/20 15:29 09/13/20 15:29 Most recent lab results ABG pH 7.381 (7.320-7.450) 09/10/20 03:07 ABG pCO2 38.0 mm Hg 09/02/20 03:40 ABG pO2 83.1 mm Hg (80.0-90.0) 09/02/20 03:40 ABG HCO3 29.4 mmol/L (20.0-26.0) H 09/02/20 03:40 ABG O2 Saturation 89.5 (0-100) 09/10/20 03:07 Calcium 6.2 mg/dL (8.4-10.2) L 09/13/20 15:29 Phosphorus 11.50 mg/dL (2.5-4.5) H 08/30/20 00:15 Magnesium 3.80 mg/dL (1.7-2.3) H 08/30/20 00:15 Medications & Allergies - Medications Allergies/Adverse Reactions: Allergies No Known Allergies Allergy (Verified 08/30/20 22:43) Home Medications: Home Medications Medication Instructions Recorded Confirmed Last Taken Type Acyclovir [Zovirax Tab] 400 mg PO BID 08/30/20 08/30/20 Unknown History Amlodipine Besylate 10 mg PO DAILY 08/30/20 08/30/20 Unknown History Furosemide [Lasix] 40 mg PO DAILY 08/30/20 08/30/20 Unknown History Gabapentin [Neurontin] 600 mg PO BID 08/30/20 08/30/20 Unknown History Imdur ER 30 mg PO DAILY 08/30/20 08/30/20 Unknown History Losartan Potassium 50 mg PO BID 08/30/20 08/30/20 Unknown History Losartan/Hydrochlorothiazide 1 each PO DAILY 08/30/20 08/30/20 Unknown History [Losartan-Hctz 100-25 mg Tab] Metoprolol Tartrate 25 mg PO BID 08/30/20 08/30/20 Unknown History Mirtazapine [Remeron] 30 mg PO HS 08/30/20 08/30/20 Unknown History Sevelamer Carbonate [Renvela] 800 mg PO TIDWM 08/30/20 08/30/20 Unknown History Vit B Complx C/Folic Acid/Zinc 0.8 mg PO DAILY 08/30/20 08/30/20 Unknown History [Dialyvite 800-Zinc 15 Tab] Zolpidem Tartrate [Edluar SUBL] 5 mg PO QHS PRN 08/30/20 08/30/20 Unknown History calcitrioL 0.5 mcg PO DAILY 08/30/20 08/30/20 Unknown History Active Medications: Generic Name Dose Route Start Last Admin Trade Name Freq PRN Reason Stop Dose Admin Acetaminophen 650 mg 09/01/20 00:27 09/04/20 04:34 Acetaminophen 325 Mg/10.15 Ml Oral Liqd Unit Dose FEEDTUBE 650 mg Q6H PRN Administration Non Cardiac Pain or Temp>100.5 Amlodipine Besylate 10 mg 09/03/20 11:00 09/13/20 09:23 Amlodipine 10 Mg Tab PO Not Given QDAY ANIYAH Lipase/Protease/Amylase 1 each 08/30/20 14:27 Lipase 10,500/Protease 25,000/Amylase 43,750 (Units) Dr Duran FEEDTUBE PRN PRN For Clogged Feeding Tube Dextrose 50 ml 08/30/20 19:48 09/10/20 22:31 Dextrose 50% In Water (25gm) 50 Ml Syringe IV 50 ml Q30MIN PRN Administration Hypoglycemia Protocol Famotidine 20 mg 09/02/20 10:00 09/13/20 09:22 Famotidine 20 Mg Tab PO 20 mg DAILY ANIYAH Administration Heparin Sodium (Porcine) 5,000 unit 08/30/20 06:00 09/14/20 06:25 Heparin 5,000 Unit/1 Ml Vial SUB-Q 5,000 unit Q8HR ANIYAH Administration Hydralazine HCl 10 mg 08/31/20 18:14 09/04/20 04:34 Hydralazine 20 Mg/1 Ml Inj IV 10 mg Q4HR PRN Administration Hypertension Hydrophilic Ointment 1 applic 08/30/20 14:05 Lip Therapy Vaseline TP Q2HR PRN Dry Lips Sodium Chloride 100 mls @ 999 mls/hr 09/10/20 13:00 Nacl 0.9% IV ARMIDA PRN Hypotension Insulin Glargine 30 units 09/03/20 10:00 09/13/20 09:23 Insulin Glargine 100 Units/Ml SUB-Q Not Given DAILY [facility] Insulin Human Lispro 5 unit 09/04/20 08:00 09/13/20 20:35 Insulin Lispro 100 Unit/Ml SUB-Q 5 unit TID [facility] Administration Insulin Human Regular 0 units 09/01/20 10:00 09/14/20 05:46 Insulin Regular, Human 100 Units/1 Ml SUB-Q Not Given Q4HR [facility] Protocol Levetiracetam 750 mg 09/04/20 22:00 09/13/20 21:36 Levetiracetam 500 Mg/5 Ml Oral Liqd PO 750 mg BID [facility] Administration Magnesium Hydroxide 30 ml 08/30/20 04:41 Magnesium Hydroxide (Mom) Oral Liqd Udc PO Q4H PRN Constipation Metoprolol Tartrate 50 mg 09/03/20 11:00 09/13/20 21:36 Metoprolol Tartrate 50 Mg Tab PO Not Given BID [facility] Multi-Ingred Cream/Lotion/Oil/Oint 1 applic 08/30/20 14:05 09/09/20 09:00 Mineral Oil/Petrolatum, White Ophth Oint 3.5 Gm OU 1 applic Q4HR PRN Administration Dry Eye(s) Nitroglycerin 0.4 mg 09/04/20 06:00 09/14/20 06:25 Nitroglycerin 0.4 Mg Patch 24hr TD 0.4 mg QDAY@0600 [facility] Administration Ondansetron HCl 4 mg 08/30/20 04:41 Ondansetron 4 Mg/2 Ml Inj IV Q8H PRN Nausea And Vomiting Senna/Docusate Sodium 1 tab 08/30/20 22:00 09/13/20 21:36 Sennosides/Docusate Sodium 8.6/50 Mg Tab FEEDTUBE 1 tab BID [facility] Administration Simple Syrup 15 ml 08/30/20 14:27 Simple Syrup 15 Ml FEEDTUBE PRN PRN Hypoglycemia Simple Syrup 30 ml 08/30/20 14:27 Simple Syrup 15 Ml FEEDTUBE PRN PRN Hypoglycemia Sodium Bicarbonate 325 mg 09/11/20 15:32 Sodium Bicarbonate 325 Mg Tab FEEDTUBE PRN PRN For Clogged Feeding Tube Sodium Chloride 10 ml 08/30/20 10:00 09/13/20 21:36 Sodium Chloride 0.9% 10 Ml Flush Syringe IV 10 ml BID ANIYAH Administration Sodium Chloride 10 ml 08/30/20 04:41 Sodium Chloride 0.9% 10 Ml Flush Syringe IV PRN PRN LINE FLUSH
[2020-09-14] MEDS: INSULIN LISPRO 100 UNIT/ML SUB-Q SCH ×2 (08:40→13:44)
[2020-09-14] MEDS: levETIRAcetam 500 MG/5 ML ORAL LIQD PO SCH (09:54)
[2020-09-14] MEDS: FAMOTIDINE 20 MG TAB PO SCH (09:54)
[2020-09-14] MEDS: INSULIN GLARGINE 100 UNITS/ML SUB-Q SCH (09:55)
[2020-09-14] MEDS: METOPROLOL TARTRATE 50 MG TAB PO SCH (09:55)
[2020-09-14] MEDS: amLODIPine 10 MG TAB PO SCH (09:56)
[2020-09-14] MEDS: SENNOSIDES/DOCUSATE SODIUM 8.6/50 MG TAB FEEDTUBE SCH (09:56)
[2020-09-14 12:49] VITALS: BP 174/62
--- NOTE | 2020-09-14 13:04 | Progress Note ---
Assessment and Plan Cardiac arrest with return of spontaneous circulation Acute hypoxemic respiratory failure Bilateral pneumonia, possibly aspiration Bilateral pulmonary edema End-stage renal disease, on dialysis NSTEMI Severe hyperkalemia History of multiple myeloma History of hypertension Anemia that is microcytic Elevated serum troponin (now to allow narural per next of kin) - tentatively for transfer to hospice care today - continue care as below otherwise; - continue Daily SAT and SBT assessment as tolerated - continue to wean supplemental oxygen for target O2 sat's > 90% acutely - VAP bundle addressed - continue lung protective strategies - continue bronchodilators with pulmonary hygiene per RT - wean per pulmonary driven protocols otherwise - continue HD/UF for toxin and volume clearance (on hold now) - avoid nephrotoxins, renally dose all medications - continue accuchecks with glycemic control per SSI (While critically ill target blood glucose of 140-180 mg/dL; avoid hypoglycemia) - sedation prn for target RASS 0 to -1 - continue to avoid benzodiazepine's, reduce the possibility of delirium - complete AB's per ID rec's - prn analgesia per CPOT score - Maintenance of sleep-wake cycle, avoid delirium - continue enteral nutritional support at goal rate as tolerated - G.I. & VTE prophylaxis - PT/OT/ROM exercises - continue mobility protocols for pressure ulcer prophylaxis - Monitor hemodynamics closely - continue other care per attending / other consultants - discharge planning ongoing concurrently COVID SPECIFIC INTERVENTIONS - COVID PCR negative .... Re-evaluate in am & prn CONDITION: CRITICAL PROGNOSIS: GUARDED CODE STATUS: FULL CODE The high probability of a clinically significant, sudden or life-threatening deterioration of the [respiratory, cardiovascular, hematologic, renal & neurologic] system(s) required my full and direct attention, intervention and personal management. The aggregate critical care time was [33] minutes without overlap. Time includes spent on; [x] Data Review and interpretation [x] Patient assessment and monitoring of vital signs [x] Documentation [x] Medication orders and management Subjective Date of service: 09/14/20 Principal diagnosis: Cardiac arrest; Ac. hypoxemic resp failure; PNA; ESRD; NSTEMI; Hyperkalemia Interval history: Patient is seen today for: Cardiac arrest with ROSC; Acute hypoxemic respiratory failure; Aspiration Pneumonia; ESRD on dialysis; NSTEMI; Hyperkalemia Seen and examined at bedside; 24hour events reviewed; nursing and respiratory care staff consulted; no adverse overnight events reported to me; resting peacefully in bed; remains on MVS; finally accepted to hospice and tentative transfer today Objective Vital Signs - 12hr 09/14/20 09/14/20 09/14/20 01:30 02:00 02:30 Temperature Pulse Rate 63 64 64 Pulse Rate [ From Monitor] Respiratory 14 15 14 Rate Blood Pressure 166/54 165/52 167/52 O2 Sat by Pulse 95 96 96 Oximetry 09/14/20 09/14/20 09/14/20 03:00 03:09 03:30 Temperature 97.6 F Pulse Rate 63 64 Pulse Rate [ From Monitor] Respiratory 14 18 Rate Blood Pressure 163/52 162/51 O2 Sat by Pulse 95 95 Oximetry 09/14/20 09/14/20 09/14/20 04:00 04:08 04:30 Temperature Pulse Rate 63 63 63 Pulse Rate [ 63 From Monitor] Respiratory 13 13 Rate Blood Pressure 163/51 163/51 159/50 O2 Sat by Pulse 96 99 Oximetry 09/14/20 09/14/20 09/14/20 05:00 05:30 06:00 Temperature Pulse Rate 64 64 64 Pulse Rate [ From Monitor] Respiratory 15 15 16 Rate Blood Pressure 168/54 166/53 164/52 O2 Sat by Pulse 96 96 95 Oximetry 09/14/20 09/14/20 09/14/20 06:25 06:30 07:00 Temperature Pulse Rate 64 63 65 Pulse Rate [ From Monitor] Respiratory 16 17 Rate Blood Pressure 166/53 166/51 164/53 O2 Sat by Pulse 95 95 Oximetry 09/14/20 09/14/20 09/14/20 07:30 07:59 08:00 Temperature 97.8 F Pulse Rate 64 65 Pulse Rate [ 58 L From Monitor] Respiratory 14 14 Rate Blood Pressure 164/52 166/51 O2 Sat by Pulse 96 99 Oximetry 09/14/20 09/14/20 09/14/20 08:10 08:15 08:23 Temperature Pulse Rate 66 66 65 Pulse Rate [ From Monitor] Respiratory 18 Rate Blood Pressure 168/52 169/52 169/52 O2 Sat by Pulse 99 99 100 Oximetry 09/14/20 09/14/20 09/14/20 08:30 09:00 09:30 Temperature Pulse Rate 66 63 63 Pulse Rate [ From Monitor] Respiratory 14 13 18 Rate Blood Pressure 169/52 163/51 156/49 O2 Sat by Pulse 99 98 95 Oximetry 09/14/20 09/14/20 09/14/20 10:00 10:30 11:00 Temperature Pulse Rate 63 63 63 Pulse Rate [ From Monitor] Respiratory 17 17 18 Rate Blood Pressure 150/50 158/53 157/54 O2 Sat by Pulse 95 95 95 Oximetry 09/14/20 09/14/20 09/14/20 11:30 12:00 12:46 Temperature Pulse Rate 63 64 64 Pulse Rate [ 60 From Monitor] Respiratory 17 14 Rate Blood Pressure 163/53 159/54 174/62 O2 Sat by Pulse 96 100 99 Oximetry Constitutional: no acute distress, other (elderly female riding set rate at rest on MVS) Eyes: non-icteric ENT: oropharynx moist, other (ETT 23 cm COLLEEN) Neck: supple, no lymphadenopathy, no JVD Effort: normal Ascultation: Bilateral: rhonchi Percussion: Bilateral: not dull Cardiovascular: regular rate and rhythm, other (S1,S2) Gastrointestinal: normoactive bowel sounds, soft, non-tender, non-distended Integumentary: normal Extremities: no cyanosis, pulses normal, no ischemia or petechiae Neurologic: pupils equal and round (dilated), other (unresponsive, not obeying commands) Psychiatric: other (unable to assess re: AMS) CBC and BMP: 09/13/20 15:29 09/13/20 15:29 ABG, PT/INR, D-dimer: ABG ABG pH 7.381 (7.320-7.450) 09/10/20 03:07 POC ABG pCO2 38.3 mmHg (32.0-48.0) 09/10/20 03:07 ABG pCO2 38.0 mm Hg 09/02/20 03:40 POC ABG pO2 63.5 mmHg (83-108) L 09/10/20 03:07 ABG pO2 83.1 mm Hg (80.0-90.0) 09/02/20 03:40 POC ABG HCO3 22.2 09/10/20 03:07 ABG O2 Saturation 89.5 (0-100) 09/10/20 03:07 PT/INR, D-dimer PT 12.8 Sec. (12.2-14.9) 08/31/20 05:45 INR 0.90 (0.87-1.13) 08/31/20 05:45 D-Dimer > 46365 ng/mlDDU (0-234) H 08/30/20 03:10 Abnormal lab findings: Abnormal Labs 08/30/20 08/30/20 08/30/20 00:14 00:15 00:15 WBC RBC 2.83 L Hgb 9.8 L Hct MCV 112 H MCH 35 H RDW 19.9 H Plt Count 95 L Lymph % (Auto) [place] % (Auto) Lymph # (Auto) Seg Neutrophils % Seg Neuts % (Manual) Lymphocytes % (Manual) Nucleated RBC % 1.0 H Seg Neutrophils # Seg Neutrophils # Man Lymphocytes # (Manual) D-Dimer ABG pH 7.199 L POC ABG pCO2 49.3 H POC ABG pO2 ABG HCO3 ABG Base Excess ABG Hemoglobin 11.9 L ABG Oxyhemoglobin 93.0 L ABG Sodium ABG Potassium 6.9 H ABG Chloride ABG Glucose 158 H Oxyhemoglobin Carboxyhemoglobin 2.8 H Sodium Potassium 7.0 H* Chloride Carbon Dioxide 18 L BUN 68 H Creatinine 8.3 H Glucose 174 H POC Glucose Calcium Phosphorus Magnesium Ferritin AST 68 H Alkaline Phosphatase 414 H Lactate Dehydrogenase Troponin T 0.085 H Total Protein 5.6 L Albumin 3.4 L HDL Cholesterol 66 H Arterial Blood Glucose 158 H Arterial Blood Ionized Calcium Crossmatch 08/30/20 08/30/20 08/30/20 00:15 00:15 03:10 WBC RBC Hgb Hct MCV MCH RDW Plt Count Lymph % (Auto) [place] % (Auto) Lymph # (Auto) Seg Neutrophils % Seg Neuts % (Manual) Lymphocytes % (Manual) Nucleated RBC % Seg Neutrophils # Seg Neutrophils # Man Lymphocytes # (Manual) D-Dimer 6083.16 H > 60880 H ABG pH POC ABG pCO2 POC ABG pO2 ABG HCO3 ABG Base Excess ABG Hemoglobin ABG Oxyhemoglobin ABG Sodium ABG Potassium ABG Chloride ABG Glucose Oxyhemoglobin Carboxyhemoglobin Sodium Potassium Chloride Carbon Dioxide BUN Creatinine Glucose POC Glucose Calcium Phosphorus 11.50 H Magnesium 3.80 H Ferritin AST Alkaline Phosphatase Lactate Dehydrogenase Troponin T Total Protein Albumin HDL Cholesterol Arterial Blood Glucose Arterial Blood Ionized Calcium Crossmatch 08/30/20 08/30/20 08/30/20 03:10 03:10 04:49 WBC RBC Hgb Hct MCV MCH RDW Plt Count Lymph % (Auto) [place] % (Auto) Lymph # (Auto) Seg Neutrophils % Seg Neuts % (Manual) Lymphocytes % (Manual) Nucleated RBC % Seg Neutrophils # Seg Neutrophils # Man Lymphocytes # (Manual) D-Dimer ABG pH POC ABG pCO2 POC ABG pO2 ABG HCO3 ABG Base Excess ABG Hemoglobin 10.8 L ABG Oxyhemoglobin ABG Sodium ABG Potassium 6.7 H ABG Chloride ABG Glucose 137 H Oxyhemoglobin Carboxyhemoglobin Sodium Potassium Chloride Carbon Dioxide BUN Creatinine Glucose 126 H POC Glucose Calcium Phosphorus Magnesium Ferritin 830.0 H AST Alkaline Phosphatase Lactate Dehydrogenase 400 H Troponin T Total Protein Albumin HDL Cholesterol Arterial Blood Glucose 137 H Arterial Blood Ionized Calcium 4.5 L Crossmatch 08/30/20 08/30/20 08/30/20 07:13 15:03 15:03 WBC 17.2 H RBC 3.23 L Hgb Hct MCV 108 H MCH 34 H RDW 19.4 H Plt Count 90 L Lymph % (Auto) [place] % (Auto) Lymph # (Auto) Seg Neutrophils % Seg Neuts % (Manual) Lymphocytes % (Manual) Nucleated RBC % Seg Neutrophils # Seg Neutrophils # Man Lymphocytes # (Manual) D-Dimer ABG pH POC ABG pCO2 POC ABG pO2 ABG HCO3 ABG Base Excess ABG Hemoglobin ABG Oxyhemoglobin ABG Sodium ABG Potassium ABG Chloride ABG Glucose Oxyhemoglobin Carboxyhemoglobin Sodium Potassium 8.2 H* 6.5 H* D Chloride 96.7 L Carbon Dioxide 21 L BUN 52 H Creatinine 5.7 H Glucose 220 H POC Glucose Calcium Phosphorus Magnesium Ferritin AST 68 H Alkaline Phosphatase 364 H Lactate Dehydrogenase Troponin T Total Protein Albumin 3.7 L HDL Cholesterol Arterial Blood Glucose Arterial Blood Ionized Calcium Crossmatch 08/30/20 08/30/20 08/31/20 17:27 21:03 04:07 WBC RBC Hgb Hct MCV MCH RDW Plt Count Lymph % (Auto) [place] % (Auto) Lymph # (Auto) Seg Neutrophils % Seg Neuts % (Manual) Lymphocytes % (Manual) Nucleated RBC % Seg Neutrophils # Seg Neutrophils # Man Lymphocytes # (Manual) D-Dimer ABG pH 7.498 H POC ABG pCO2 27.9 L POC ABG pO2 126.9 H ABG HCO3 ABG Base Excess ABG Hemoglobin 10.1 L ABG Oxyhemoglobin 98.3 H ABG Sodium 134.3 L ABG Potassium 6.7 H ABG Chloride ABG Glucose 261 H Oxyhemoglobin Carboxyhemoglobin 0.1 L Sodium Potassium Chloride Carbon Dioxide BUN Creatinine Glucose POC Glucose 223 H 230 H Calcium Phosphorus Magnesium Ferritin AST Alkaline Phosphatase Lactate Dehydrogenase Troponin T Total Protein Albumin HDL Cholesterol Arterial Blood Glucose 261 H Arterial Blood Ionized Calcium 3.6 L Crossmatch 08/31/20 08/31/20 08/31/20 05:01 05:45 05:45 WBC 13.1 H RBC 2.83 L Hgb 9.6 L Hct 29.8 L MCV 105 H MCH 34 H RDW 18.9 H Plt Count 88 L Lymph % (Auto) 6.9 L [place] % (Auto) Lymph # (Auto) 0.9 L Seg Neutrophils % 87.8 H Seg Neuts % (Manual) Lymphocytes % (Manual) Nucleated RBC % Seg Neutrophils # 11.5 H Seg Neutrophils # Man Lymphocytes # (Manual) D-Dimer ABG pH POC ABG pCO2 POC ABG pO2 ABG HCO3 ABG Base Excess ABG Hemoglobin ABG Oxyhemoglobin ABG Sodium ABG Potassium ABG Chloride ABG Glucose Oxyhemoglobin Carboxyhemoglobin Sodium Potassium 7.1 H* Chloride 96.7 L Carbon Dioxide BUN 74 H Creatinine 7.0 H Glucose 254 H POC Glucose 256 H Calcium 7.6 L Phosphorus Magnesium Ferritin AST Alkaline Phosphatase Lactate Dehydrogenase Troponin T Total Protein Albumin HDL Cholesterol Arterial Blood Glucose Arterial Blood Ionized Calcium Crossmatch 08/31/20 08/31/20 09/01/20 11:38 23:31 03:13 WBC RBC Hgb Hct MCV MCH RDW Plt Count Lymph % (Auto) [place] % (Auto) Lymph # (Auto) Seg Neutrophils % Seg Neuts % (Manual) Lymphocytes % (Manual) Nucleated RBC % Seg Neutrophils # Seg Neutrophils # Man Lymphocytes # (Manual) D-Dimer ABG pH 7.519 H POC ABG pCO2 POC ABG pO2 ABG HCO3 ABG Base Excess ABG Hemoglobin 9.3 L ABG Oxyhemoglobin ABG Sodium 134.7 L ABG Potassium ABG Chloride 94.0 L ABG Glucose 441 H Oxyhemoglobin Carboxyhemoglobin Sodium Potassium Chloride Carbon Dioxide BUN Creatinine Glucose POC Glucose 294 H 426 H Calcium Phosphorus Magnesium Ferritin AST Alkaline Phosphatase Lactate Dehydrogenase Troponin T Total Protein Albumin HDL Cholesterol Arterial Blood Glucose 441 H Arterial Blood Ionized Calcium 3.8 L Crossmatch 09/01/20 09/01/20 09/01/20 05:20 10:32 11:45 WBC RBC Hgb Hct MCV MCH RDW Plt Count Lymph % (Auto) [place] % (Auto) Lymph # (Auto) Seg Neutrophils % Seg Neuts % (Manual) Lymphocytes % (Manual) Nucleated RBC % Seg Neutrophils # Seg Neutrophils # Man Lymphocytes # (Manual) D-Dimer ABG pH POC ABG pCO2 POC ABG pO2 ABG HCO3 ABG Base Excess ABG Hemoglobin ABG Oxyhemoglobin ABG Sodium ABG Potassium ABG Chloride ABG Glucose Oxyhemoglobin Carboxyhemoglobin Sodium Potassium Chloride Carbon Dioxide BUN Creatinine Glucose POC Glucose 422 H 227 H 203 H Calcium Phosphorus Magnesium Ferritin AST Alkaline Phosphatase Lactate Dehydrogenase Troponin T Total Protein Albumin HDL Cholesterol Arterial Blood Glucose Arterial Blood Ionized Calcium Crossmatch 09/01/20 09/01/20 09/01/20 13:34 17:11 17:29 WBC RBC Hgb Hct MCV MCH RDW Plt Count Lymph % (Auto) [place] % (Auto) Lymph # (Auto) Seg Neutrophils % Seg Neuts % (Manual) Lymphocytes % (Manual) Nucleated RBC % Seg Neutrophils # Seg Neutrophils # Man Lymphocytes # (Manual) D-Dimer ABG pH POC ABG pCO2 POC ABG pO2 ABG HCO3 ABG Base Excess ABG Hemoglobin ABG Oxyhemoglobin ABG Sodium ABG Potassium ABG Chloride ABG Glucose Oxyhemoglobin Carboxyhemoglobin Sodium Potassium Chloride 94.5 L Carbon Dioxide BUN 29 H Creatinine 3.4 H D Glucose 241 H POC Glucose 212 H 198 H Calcium 8.2 L Phosphorus Magnesium Ferritin AST Alkaline Phosphatase Lactate Dehydrogenase Troponin T Total Protein Albumin HDL Cholesterol Arterial Blood Glucose Arterial Blood Ionized Calcium Crossmatch 09/01/20 09/02/20 09/02/20 21:33 03:08 03:40 WBC RBC Hgb Hct MCV MCH RDW Plt Count Lymph % (Auto) [place] % (Auto) Lymph # (Auto) Seg Neutrophils % Seg Neuts % (Manual) Lymphocytes % (Manual) Nucleated RBC % Seg Neutrophils # Seg Neutrophils # Man Lymphocytes # (Manual) D-Dimer ABG pH 7.506 H POC ABG pCO2 POC ABG pO2 ABG HCO3 29.4 H ABG Base Excess 5.9 H ABG Hemoglobin 8.3 L ABG Oxyhemoglobin ABG Sodium ABG Potassium ABG Chloride ABG Glucose Oxyhemoglobin 94.8 L Carboxyhemoglobin Sodium Potassium Chloride Carbon Dioxide BUN Creatinine Glucose POC Glucose 188 H 179 H Calcium Phosphorus Magnesium Ferritin AST Alkaline Phosphatase Lactate Dehydrogenase Troponin T Total Protein Albumin HDL Cholesterol Arterial Blood Glucose Arterial Blood Ionized Calcium Crossmatch 09/02/20 09/02/20 09/02/20 05:55 07:12 09:28 WBC RBC Hgb Hct MCV MCH RDW Plt Count Lymph % (Auto) [place] % (Auto) Lymph # (Auto) Seg Neutrophils % Seg Neuts % (Manual) Lymphocytes % (Manual) Nucleated RBC % Seg Neutrophils # Seg Neutrophils # Man Lymphocytes # (Manual) D-Dimer ABG pH POC ABG pCO2 POC ABG pO2 ABG HCO3 ABG Base Excess ABG Hemoglobin ABG Oxyhemoglobin ABG Sodium ABG Potassium ABG Chloride ABG Glucose Oxyhemoglobin Carboxyhemoglobin Sodium 136 L Potassium Chloride 91.6 L Carbon Dioxide BUN 52 H Creatinine 5.5 H D Glucose 176 H POC Glucose 185 H 196 H Calcium 7.7 L Phosphorus Magnesium Ferritin AST Alkaline Phosphatase Lactate Dehydrogenase Troponin T Total Protein Albumin HDL Cholesterol Arterial Blood Glucose Arterial Blood Ionized Calcium Crossmatch 09/02/20 09/02/20 09/02/20 11:06 13:03 17:22 WBC RBC Hgb Hct MCV MCH RDW Plt Count Lymph % (Auto) [place] % (Auto) Lymph # (Auto) Seg Neutrophils % Seg Neuts % (Manual) Lymphocytes % (Manual) Nucleated RBC % Seg Neutrophils # Seg Neutrophils # Man Lymphocytes # (Manual) D-Dimer ABG pH POC ABG pCO2 POC ABG pO2 ABG HCO3 ABG Base Excess ABG Hemoglobin ABG Oxyhemoglobin ABG Sodium ABG Potassium ABG Chloride ABG Glucose Oxyhemoglobin Carboxyhemoglobin Sodium Potassium Chloride Carbon Dioxide BUN Creatinine Glucose POC Glucose 224 H 252 H 196 H Calcium Phosphorus Magnesium Ferritin AST Alkaline Phosphatase Lactate Dehydrogenase Troponin T Total Protein Albumin HDL Cholesterol Arterial Blood Glucose Arterial Blood Ionized Calcium Crossmatch 09/02/20 09/03/20 09/03/20 21:13 02:02 04:12 WBC RBC Hgb Hct MCV MCH RDW Plt Count Lymph % (Auto) [place] % (Auto) Lymph # (Auto) Seg Neutrophils % Seg Neuts % (Manual) Lymphocytes % (Manual) Nucleated RBC % Seg Neutrophils # Seg Neutrophils # Man Lymphocytes # (Manual) D-Dimer ABG pH POC ABG pCO2 POC ABG pO2 ABG HCO3 ABG Base Excess ABG Hemoglobin ABG Oxyhemoglobin ABG Sodium ABG Potassium ABG Chloride ABG Glucose Oxyhemoglobin Carboxyhemoglobin Sodium 136 L Potassium Chloride 90.3 L Carbon Dioxide BUN 79 H Creatinine 8.1 H Glucose 223 H POC Glucose 204 H 205 H Calcium 7.1 L Phosphorus Magnesium Ferritin AST Alkaline Phosphatase Lactate Dehydrogenase Troponin T Total Protein Albumin HDL Cholesterol Arterial Blood Glucose Arterial Blood Ionized Calcium Crossmatch 09/03/20 09/03/20 09/03/20 04:12 05:35 09:28 WBC RBC 2.35 L Hgb 8.3 L Hct 25.1 L MCV 107 H MCH 35 H RDW 18.5 H Plt Count 87 L Lymph % (Auto) [place] % (Auto) Lymph # (Auto) Seg Neutrophils % Seg Neuts % (Manual) Lymphocytes % (Manual) Nucleated RBC % Seg Neutrophils # Seg Neutrophils # Man Lymphocytes # (Manual) D-Dimer ABG pH POC ABG pCO2 POC ABG pO2 ABG HCO3 ABG Base Excess ABG Hemoglobin ABG Oxyhemoglobin ABG Sodium ABG Potassium ABG Chloride ABG Glucose Oxyhemoglobin Carboxyhemoglobin Sodium Potassium Chloride Carbon Dioxide BUN Creatinine Glucose POC Glucose 219 H 202 H Calcium Phosphorus Magnesium Ferritin AST Alkaline Phosphatase Lactate Dehydrogenase Troponin T Total Protein Albumin HDL Cholesterol Arterial Blood Glucose Arterial Blood Ionized Calcium Crossmatch 09/03/20 09/03/20 09/03/20 11:36 13:41 16:56 WBC RBC Hgb Hct MCV MCH RDW Plt Count Lymph % (Auto) [place] % (Auto) Lymph # (Auto) Seg Neutrophils % Seg Neuts % (Manual) Lymphocytes % (Manual) Nucleated RBC % Seg Neutrophils # Seg Neutrophils # Man Lymphocytes # (Manual) D-Dimer ABG pH POC ABG pCO2 POC ABG pO2 ABG HCO3 ABG Base Excess ABG Hemoglobin ABG Oxyhemoglobin ABG Sodium ABG Potassium ABG Chloride ABG Glucose Oxyhemoglobin Carboxyhemoglobin Sodium Potassium Chloride Carbon Dioxide BUN Creatinine Glucose POC Glucose 216 H 224 H 298 H Calcium Phosphorus Magnesium Ferritin AST Alkaline Phosphatase Lactate Dehydrogenase Troponin T Total Protein Albumin HDL Cholesterol Arterial Blood Glucose Arterial Blood Ionized Calcium Crossmatch 09/03/20 09/04/20 09/04/20 20:49 00:23 05:28 WBC RBC Hgb Hct MCV MCH RDW Plt Count Lymph % (Auto) [place] % (Auto) Lymph # (Auto) Seg Neutrophils % Seg Neuts % (Manual) Lymphocytes % (Manual) Nucleated RBC % Seg Neutrophils # Seg Neutrophils # Man Lymphocytes # (Manual) D-Dimer ABG pH POC ABG pCO2 POC ABG pO2 ABG HCO3 ABG Base Excess ABG Hemoglobin ABG Oxyhemoglobin ABG Sodium ABG Potassium ABG Chloride ABG Glucose Oxyhemoglobin Carboxyhemoglobin Sodium Potassium Chloride Carbon Dioxide BUN Creatinine Glucose POC Glucose 228 H 228 H 283 H Calcium Phosphorus Magnesium Ferritin AST Alkaline Phosphatase Lactate Dehydrogenase Troponin T Total Protein Albumin HDL Cholesterol Arterial Blood Glucose Arterial Blood Ionized Calcium Crossmatch 09/04/20 09/04/20 09/04/20 10:03 17:39 21:45 WBC RBC Hgb Hct MCV MCH RDW Plt Count Lymph % (Auto) [place] % (Auto) Lymph # (Auto) Seg Neutrophils % Seg Neuts % (Manual) Lymphocytes % (Manual) Nucleated RBC % Seg Neutrophils # Seg Neutrophils # Man Lymphocytes # (Manual) D-Dimer ABG pH POC ABG pCO2 POC ABG pO2 ABG HCO3 ABG Base Excess ABG Hemoglobin ABG Oxyhemoglobin ABG Sodium ABG Potassium ABG Chloride ABG Glucose Oxyhemoglobin Carboxyhemoglobin Sodium Potassium Chloride Carbon Dioxide BUN Creatinine Glucose POC Glucose 159 H 128 H 213 H Calcium Phosphorus Magnesium Ferritin AST Alkaline Phosphatase Lactate Dehydrogenase Troponin T Total Protein Albumin HDL Cholesterol Arterial Blood Glucose Arterial Blood Ionized Calcium Crossmatch 09/05/20 09/05/20 09/05/20 02:04 05:33 09:25 WBC RBC Hgb Hct MCV MCH RDW Plt Count Lymph % (Auto) [place] % (Auto) Lymph # (Auto) Seg Neutrophils % Seg Neuts % (Manual) Lymphocytes % (Manual) Nucleated RBC % Seg Neutrophils # Seg Neutrophils # Man Lymphocytes # (Manual) D-Dimer ABG pH POC ABG pCO2 POC ABG pO2 ABG HCO3 ABG Base Excess ABG Hemoglobin ABG Oxyhemoglobin ABG Sodium ABG Potassium ABG Chloride ABG Glucose Oxyhemoglobin Carboxyhemoglobin Sodium Potassium Chloride Carbon Dioxide BUN Creatinine Glucose POC Glucose 178 H 177 H 199 H Calcium Phosphorus Magnesium Ferritin AST Alkaline Phosphatase Lactate Dehydrogenase Troponin T Total Protein Albumin HDL Cholesterol Arterial Blood Glucose Arterial Blood Ionized Calcium Crossmatch 09/05/20 09/05/20 09/05/20 13:26 16:47 21:40 WBC RBC Hgb Hct MCV MCH RDW Plt Count Lymph % (Auto) [place] % (Auto) Lymph # (Auto) Seg Neutrophils % Seg Neuts % (Manual) Lymphocytes % (Manual) Nucleated RBC % Seg Neutrophils # Seg Neutrophils # Man Lymphocytes # (Manual) D-Dimer ABG pH POC ABG pCO2 POC ABG pO2 ABG HCO3 ABG Base Excess ABG Hemoglobin ABG Oxyhemoglobin ABG Sodium ABG Potassium ABG Chloride ABG Glucose Oxyhemoglobin Carboxyhemoglobin Sodium Potassium Chloride Carbon Dioxide BUN Creatinine Glucose POC Glucose 136 H 141 H 131 H Calcium Phosphorus Magnesium Ferritin AST Alkaline Phosphatase Lactate Dehydrogenase Troponin T Total Protein Albumin HDL Cholesterol Arterial Blood Glucose Arterial Blood Ionized Calcium Crossmatch 09/06/20 09/06/20 09/06/20 03:16 05:20 07:39 WBC RBC Hgb Hct MCV MCH RDW Plt Count Lymph % (Auto) [place] % (Auto) Lymph # (Auto) Seg Neutrophils % Seg Neuts % (Manual) Lymphocytes % (Manual) Nucleated RBC % Seg Neutrophils # Seg Neutrophils # Man Lymphocytes # (Manual) D-Dimer ABG pH POC ABG pCO2 POC ABG pO2 66.8 L ABG HCO3 ABG Base Excess ABG Hemoglobin 9.3 L ABG Oxyhemoglobin 89.9 L ABG Sodium 130.5 L ABG Potassium 5.1 H ABG Chloride 91.0 L ABG Glucose 224 H Oxyhemoglobin Carboxyhemoglobin Sodium Potassium Chloride Carbon Dioxide BUN Creatinine Glucose POC Glucose 112 H 163 H Calcium Phosphorus Magnesium Ferritin AST Alkaline Phosphatase Lactate Dehydrogenase Troponin T Total Protein Albumin HDL Cholesterol Arterial Blood Glucose 224 H Arterial Blood Ionized Calcium 3.8 L Crossmatch 09/06/20 09/06/20 09/06/20 09:30 15:27 17:57 WBC RBC Hgb Hct MCV MCH RDW Plt Count Lymph % (Auto) [place] % (Auto) Lymph # (Auto) Seg Neutrophils % Seg Neuts % (Manual) Lymphocytes % (Manual) Nucleated RBC % Seg Neutrophils # Seg Neutrophils # Man Lymphocytes # (Manual) D-Dimer ABG pH POC ABG pCO2 POC ABG pO2 ABG HCO3 ABG Base Excess ABG Hemoglobin ABG Oxyhemoglobin ABG Sodium ABG Potassium ABG Chloride ABG Glucose Oxyhemoglobin Carboxyhemoglobin Sodium Potassium Chloride Carbon Dioxide BUN Creatinine Glucose POC Glucose 236 H 166 H 130 H Calcium Phosphorus Magnesium Ferritin AST Alkaline Phosphatase Lactate Dehydrogenase Troponin T Total Protein Albumin HDL Cholesterol Arterial Blood Glucose Arterial Blood Ionized Calcium Crossmatch 09/06/20 09/07/20 09/07/20 22:21 03:28 04:00 WBC RBC Hgb Hct MCV MCH RDW Plt Count Lymph % (Auto) [place] % (Auto) Lymph # (Auto) Seg Neutrophils % Seg Neuts % (Manual) Lymphocytes % (Manual) Nucleated RBC % Seg Neutrophils # Seg Neutrophils # Man Lymphocytes # (Manual) D-Dimer ABG pH POC ABG pCO2 POC ABG pO2 62.2 L ABG HCO3 ABG Base Excess ABG Hemoglobin 8.0 L ABG Oxyhemoglobin 87.8 L ABG Sodium 127.3 L ABG Potassium 5.7 H ABG Chloride 89.0 L ABG Glucose 232 H Oxyhemoglobin Carboxyhemoglobin Sodium Potassium Chloride Carbon Dioxide BUN Creatinine Glucose POC Glucose 154 H 183 H Calcium Phosphorus Magnesium Ferritin AST Alkaline Phosphatase Lactate Dehydrogenase Troponin T Total Protein Albumin HDL Cholesterol Arterial Blood Glucose 232 H Arterial Blood Ionized Calcium 3.7 L Crossmatch 09/07/20 09/07/20 09/07/20 04:12 04:12 05:45 WBC RBC 2.32 L Hgb 7.9 L Hct 24.0 L MCV 104 H MCH 34 H RDW 17.7 H Plt Count 116 L Lymph % (Auto) 8.5 L [place] % (Auto) 9.0 H Lymph # (Auto) 0.7 L Seg Neutrophils % 81.3 H Seg Neuts % (Manual) Lymphocytes % (Manual) Nucleated RBC % Seg Neutrophils # Seg Neutrophils # Man Lymphocytes # (Manual) D-Dimer ABG pH POC ABG pCO2 POC ABG pO2 ABG HCO3 ABG Base Excess ABG Hemoglobin ABG Oxyhemoglobin ABG Sodium ABG Potassium ABG Chloride ABG Glucose Oxyhemoglobin Carboxyhemoglobin Sodium 133 L Potassium 6.2 H* D Chloride 85.8 L Carbon Dioxide BUN 132 H Creatinine 9.8 H Glucose 227 H POC Glucose 223 H Calcium 7.9 L Phosphorus Magnesium Ferritin AST Alkaline Phosphatase Lactate Dehydrogenase Troponin T Total Protein Albumin HDL Cholesterol Arterial Blood Glucose Arterial Blood Ionized Calcium Crossmatch 09/07/20 09/07/20 09/07/20 07:49 11:48 18:13 WBC RBC Hgb Hct MCV MCH RDW Plt Count Lymph % (Auto) [place] % (Auto) Lymph # (Auto) Seg Neutrophils % Seg Neuts % (Manual) Lymphocytes % (Manual) Nucleated RBC % Seg Neutrophils # Seg Neutrophils # Man Lymphocytes # (Manual) D-Dimer ABG pH POC ABG pCO2 POC ABG pO2 ABG HCO3 ABG Base Excess ABG Hemoglobin ABG Oxyhemoglobin ABG Sodium ABG Potassium ABG Chloride ABG Glucose Oxyhemoglobin Carboxyhemoglobin Sodium Potassium Chloride Carbon Dioxide BUN Creatinine Glucose POC Glucose 281 H 169 H 162 H Calcium Phosphorus Magnesium Ferritin AST Alkaline Phosphatase Lactate Dehydrogenase Troponin T Total Protein Albumin HDL Cholesterol Arterial Blood Glucose Arterial Blood Ionized Calcium Crossmatch 09/07/20 09/08/20 09/08/20 20:53 01:07 05:49 WBC RBC Hgb Hct MCV MCH RDW Plt Count Lymph % (Auto) [place] % (Auto) Lymph # (Auto) Seg Neutrophils % Seg Neuts % (Manual) Lymphocytes % (Manual) Nucleated RBC % Seg Neutrophils # Seg Neutrophils # Man Lymphocytes # (Manual) D-Dimer ABG pH POC ABG pCO2 POC ABG pO2 ABG HCO3 ABG Base Excess ABG Hemoglobin ABG Oxyhemoglobin ABG Sodium ABG Potassium ABG Chloride ABG Glucose Oxyhemoglobin Carboxyhemoglobin Sodium Potassium Chloride Carbon Dioxide BUN Creatinine Glucose POC Glucose 205 H 180 H 186 H Calcium Phosphorus Magnesium Ferritin AST Alkaline Phosphatase Lactate Dehydrogenase Troponin T Total Protein Albumin HDL Cholesterol Arterial Blood Glucose Arterial Blood Ionized Calcium Crossmatch 09/08/20 09/08/20 09/08/20 11:44 13:56 17:31 WBC RBC Hgb Hct MCV MCH RDW Plt Count Lymph % (Auto) [place] % (Auto) Lymph # (Auto) Seg Neutrophils % Seg Neuts % (Manual) Lymphocytes % (Manual) Nucleated RBC % Seg Neutrophils # Seg Neutrophils # Man Lymphocytes # (Manual) D-Dimer ABG pH POC ABG pCO2 POC ABG pO2 150.6 H ABG HCO3 ABG Base Excess ABG Hemoglobin 6.6 L ABG Oxyhemoglobin ABG Sodium 133.2 L ABG Potassium ABG Chloride 90.0 L ABG Glucose 173 H Oxyhemoglobin Carboxyhemoglobin Sodium Potassium Chloride Carbon Dioxide BUN Creatinine Glucose POC Glucose 164 H 160 H Calcium Phosphorus Magnesium Ferritin AST Alkaline Phosphatase Lactate Dehydrogenase Troponin T Total Protein Albumin HDL Cholesterol Arterial Blood Glucose 173 H Arterial Blood Ionized Calcium 3.5 L Crossmatch 09/08/20 09/09/20 09/09/20 19:19 02:39 03:43 WBC RBC Hgb Hct MCV MCH RDW Plt Count Lymph % (Auto) [place] % (Auto) Lymph # (Auto) Seg Neutrophils % Seg Neuts % (Manual) Lymphocytes % (Manual) Nucleated RBC % Seg Neutrophils # Seg Neutrophils # Man Lymphocytes # (Manual) D-Dimer ABG pH POC ABG pCO2 POC ABG pO2 58.6 L ABG HCO3 ABG Base Excess ABG Hemoglobin 6.8 L ABG Oxyhemoglobin 84.7 L ABG Sodium 131.6 L ABG Potassium ABG Chloride 88.0 L ABG Glucose 214 H Oxyhemoglobin Carboxyhemoglobin Sodium Potassium Chloride Carbon Dioxide BUN Creatinine Glucose POC Glucose 160 H 201 H Calcium Phosphorus Magnesium Ferritin AST Alkaline Phosphatase Lactate Dehydrogenase Troponin T Total Protein Albumin HDL Cholesterol Arterial Blood Glucose 214 H Arterial Blood Ionized Calcium 3.3 L Crossmatch 09/09/20 09/09/20 09/09/20 05:55 09:52 14:20 WBC RBC Hgb Hct MCV MCH RDW Plt Count Lymph % (Auto) [place] % (Auto) Lymph # (Auto) Seg Neutrophils % Seg Neuts % (Manual) Lymphocytes % (Manual) Nucleated RBC % Seg Neutrophils # Seg Neutrophils # Man Lymphocytes # (Manual) D-Dimer ABG pH POC ABG pCO2 POC ABG pO2 ABG HCO3 ABG Base Excess ABG Hemoglobin ABG Oxyhemoglobin ABG Sodium ABG Potassium ABG Chloride ABG Glucose Oxyhemoglobin Carboxyhemoglobin Sodium Potassium Chloride Carbon Dioxide BUN Creatinine Glucose POC Glucose 190 H 159 H 161 H Calcium Phosphorus Magnesium Ferritin AST Alkaline Phosphatase Lactate Dehydrogenase Troponin T Total Protein Albumin HDL Cholesterol Arterial Blood Glucose Arterial Blood Ionized Calcium Crossmatch 09/09/20 09/10/20 09/10/20 17:45 02:10 03:07 WBC RBC Hgb Hct MCV MCH RDW Plt Count Lymph % (Auto) [place] % (Auto) Lymph # (Auto) Seg Neutrophils % Seg Neuts % (Manual) Lymphocytes % (Manual) Nucleated RBC % Seg Neutrophils # Seg Neutrophils # Man Lymphocytes # (Manual) D-Dimer ABG pH POC ABG pCO2 POC ABG pO2 63.5 L ABG HCO3 ABG Base Excess ABG Hemoglobin 7.0 L ABG Oxyhemoglobin 88.3 L ABG Sodium 130.1 L ABG Potassium 5.0 H ABG Chloride 87.0 L ABG Glucose Oxyhemoglobin Carboxyhemoglobin Sodium Potassium Chloride Carbon Dioxide BUN Creatinine Glucose POC Glucose 140 H 116 H Calcium Phosphorus Magnesium Ferritin AST Alkaline Phosphatase Lactate Dehydrogenase Troponin T Total Protein Albumin HDL Cholesterol Arterial Blood Glucose Arterial Blood Ionized Calcium 3.2 L Crossmatch 09/10/20 09/10/20 09/10/20 06:34 07:15 07:15 WBC RBC 1.88 L Hgb 6.5 L Hct 19.1 L* MCV 102 H MCH 34 H RDW 17.5 H Plt Count 121 L Lymph % (Auto) [place] % (Auto) Lymph # (Auto) Seg Neutrophils % Seg Neuts % (Manual) 93.0 H Lymphocytes % (Manual) 4.0 L Nucleated RBC % Seg Neutrophils # Seg Neutrophils # Man 8.8 H Lymphocytes # (Manual) 0.4 L D-Dimer ABG pH POC ABG pCO2 POC ABG pO2 ABG HCO3 ABG Base Excess ABG Hemoglobin ABG Oxyhemoglobin ABG Sodium ABG Potassium ABG Chloride ABG Glucose Oxyhemoglobin Carboxyhemoglobin Sodium Potassium 5.2 H Chloride 84.4 L Carbon Dioxide BUN 189 H Creatinine 12.4 H Glucose 118 H POC Glucose 125 H Calcium 6.8 L Phosphorus Magnesium Ferritin AST Alkaline Phosphatase Lactate Dehydrogenase Troponin T Total Protein Albumin HDL Cholesterol Arterial Blood Glucose Arterial Blood Ionized Calcium Crossmatch 09/10/20 09/10/20 09/10/20 08:35 09:05 21:47 WBC RBC Hgb Hct MCV MCH RDW Plt Count Lymph % (Auto) [place] % (Auto) Lymph # (Auto) Seg Neutrophils % Seg Neuts % (Manual) Lymphocytes % (Manual) Nucleated RBC % Seg Neutrophils # Seg Neutrophils # Man Lymphocytes # (Manual) D-Dimer ABG pH POC ABG pCO2 POC ABG pO2 ABG HCO3 ABG Base Excess ABG Hemoglobin ABG Oxyhemoglobin ABG Sodium ABG Potassium ABG Chloride ABG Glucose Oxyhemoglobin Carboxyhemoglobin Sodium Potassium Chloride Carbon Dioxide BUN Creatinine Glucose POC Glucose 107 H 66 L Calcium Phosphorus Magnesium Ferritin AST Alkaline Phosphatase Lactate Dehydrogenase Troponin T Total Protein Albumin HDL Cholesterol Arterial Blood Glucose Arterial Blood Ionized Calcium Crossmatch See Detail 09/10/20 09/11/20 09/11/20 23:35 00:02 10:13 WBC RBC Hgb Hct MCV MCH RDW Plt Count Lymph % (Auto) [place] % (Auto) Lymph # (Auto) Seg Neutrophils % Seg Neuts % (Manual) Lymphocytes % (Manual) Nucleated RBC % Seg Neutrophils # Seg Neutrophils # Man Lymphocytes # (Manual) D-Dimer ABG pH POC ABG pCO2 POC ABG pO2 ABG HCO3 ABG Base Excess ABG Hemoglobin ABG Oxyhemoglobin ABG Sodium ABG Potassium ABG Chloride ABG Glucose Oxyhemoglobin Carboxyhemoglobin Sodium Potassium Chloride Carbon Dioxide BUN Creatinine Glucose POC Glucose 129 H 133 H 120 H Calcium Phosphorus Magnesium Ferritin AST Alkaline Phosphatase Lactate Dehydrogenase Troponin T Total Protein Albumin HDL Cholesterol Arterial Blood Glucose Arterial Blood Ionized Calcium Crossmatch 09/11/20 09/11/20 09/11/20 11:51 15:18 17:39 WBC RBC Hgb Hct MCV MCH RDW Plt Count Lymph % (Auto) [place] % (Auto) Lymph # (Auto) Seg Neutrophils % Seg Neuts % (Manual) Lymphocytes % (Manual) Nucleated RBC % Seg Neutrophils # Seg Neutrophils # Man Lymphocytes # (Manual) D-Dimer ABG pH POC ABG pCO2 POC ABG pO2 ABG HCO3 ABG Base Excess ABG Hemoglobin ABG Oxyhemoglobin ABG Sodium ABG Potassium ABG Chloride ABG Glucose Oxyhemoglobin Carboxyhemoglobin Sodium Potassium Chloride Carbon Dioxide BUN Creatinine Glucose POC Glucose 141 H 162 H 139 H Calcium Phosphorus Magnesium Ferritin AST Alkaline Phosphatase Lactate Dehydrogenase Troponin T Total Protein Albumin HDL Cholesterol Arterial Blood Glucose Arterial Blood Ionized Calcium Crossmatch 09/11/20 09/12/20 09/12/20 22:05 01:58 05:20 WBC RBC Hgb Hct MCV MCH RDW Plt Count Lymph % (Auto) [place] % (Auto) Lymph # (Auto) Seg Neutrophils % Seg Neuts % (Manual) Lymphocytes % (Manual) Nucleated RBC % Seg Neutrophils # Seg Neutrophils # Man Lymphocytes # (Manual) D-Dimer ABG pH POC ABG pCO2 POC ABG pO2 ABG HCO3 ABG Base Excess ABG Hemoglobin ABG Oxyhemoglobin ABG Sodium ABG Potassium ABG Chloride ABG Glucose Oxyhemoglobin Carboxyhemoglobin Sodium Potassium Chloride Carbon Dioxide BUN Creatinine Glucose POC Glucose 162 H 172 H 138 H Calcium Phosphorus Magnesium Ferritin AST Alkaline Phosphatase Lactate Dehydrogenase Troponin T Total Protein Albumin HDL Cholesterol Arterial Blood Glucose Arterial Blood Ionized Calcium Crossmatch 09/12/20 09/12/20 09/12/20 09:55 13:53 15:57 WBC RBC Hgb Hct MCV MCH RDW Plt Count Lymph % (Auto) [place] % (Auto) Lymph # (Auto) Seg Neutrophils % Seg Neuts % (Manual) Lymphocytes % (Manual) Nucleated RBC % Seg Neutrophils # Seg Neutrophils # Man Lymphocytes # (Manual) D-Dimer ABG pH POC ABG pCO2 POC ABG pO2 ABG HCO3 ABG Base Excess ABG Hemoglobin ABG Oxyhemoglobin ABG Sodium ABG Potassium ABG Chloride ABG Glucose Oxyhemoglobin Carboxyhemoglobin Sodium Potassium Chloride Carbon Dioxide BUN Creatinine Glucose POC Glucose 200 H 225 H 219 H Calcium Phosphorus Magnesium Ferritin AST Alkaline Phosphatase Lactate Dehydrogenase Troponin T Total Protein Albumin HDL Cholesterol Arterial Blood Glucose Arterial Blood Ionized Calcium Crossmatch 09/12/20 09/13/20 09/13/20 21:35 02:31 05:43 WBC RBC Hgb Hct MCV MCH RDW Plt Count Lymph % (Auto) [place] % (Auto) Lymph # (Auto) Seg Neutrophils % Seg Neuts % (Manual) Lymphocytes % (Manual) Nucleated RBC % Seg Neutrophils # Seg Neutrophils # Man Lymphocytes # (Manual) D-Dimer ABG pH POC ABG pCO2 POC ABG pO2 ABG HCO3 ABG Base Excess ABG Hemoglobin ABG Oxyhemoglobin ABG Sodium ABG Potassium ABG Chloride ABG Glucose Oxyhemoglobin Carboxyhemoglobin Sodium Potassium Chloride Carbon Dioxide BUN Creatinine Glucose POC Glucose 202 H 133 H 147 H Calcium Phosphorus Magnesium Ferritin AST Alkaline Phosphatase Lactate Dehydrogenase Troponin T Total Protein Albumin HDL Cholesterol Arterial Blood Glucose Arterial Blood Ionized Calcium Crossmatch 09/13/20 09/13/20 09/13/20 07:49 11:29 14:22 WBC RBC Hgb Hct MCV MCH RDW Plt Count Lymph % (Auto) [place] % (Auto) Lymph # (Auto) Seg Neutrophils % Seg Neuts % (Manual) Lymphocytes % (Manual) Nucleated RBC % Seg Neutrophils # Seg Neutrophils # Man Lymphocytes # (Manual) D-Dimer ABG pH POC ABG pCO2 POC ABG pO2 ABG HCO3 ABG Base Excess ABG Hemoglobin ABG Oxyhemoglobin ABG Sodium ABG Potassium ABG Chloride ABG Glucose Oxyhemoglobin Carboxyhemoglobin Sodium Potassium Chloride Carbon Dioxide BUN Creatinine Glucose POC Glucose 169 H 215 H 179 H Calcium Phosphorus Magnesium Ferritin AST Alkaline Phosphatase Lactate Dehydrogenase Troponin T Total Protein Albumin HDL Cholesterol Arterial Blood Glucose Arterial Blood Ionized Calcium Crossmatch 09/13/20 09/13/20 09/13/20 15:29 15:29 17:21 WBC RBC 2.26 L Hgb 7.6 L Hct 22.8 L MCV 101 H MCH 34 H RDW 19.1 H Plt Count 112 L Lymph % (Auto) [place] % (Auto) Lymph # (Auto) Seg Neutrophils % Seg Neuts % (Manual) Lymphocytes % (Manual) Nucleated RBC % Seg Neutrophils # Seg Neutrophils # Man Lymphocytes # (Manual) D-Dimer ABG pH POC ABG pCO2 POC ABG pO2 ABG HCO3 ABG Base Excess ABG Hemoglobin ABG Oxyhemoglobin ABG Sodium ABG Potassium ABG Chloride ABG Glucose Oxyhemoglobin Carboxyhemoglobin Sodium 128 L D Potassium 6.3 H* D Chloride 76.0 L Carbon Dioxide 16 L D BUN 214 H Creatinine 13.9 H Glucose 163 H POC Glucose 126 H Calcium 6.2 L Phosphorus Magnesium Ferritin AST Alkaline Phosphatase Lactate Dehydrogenase Troponin T Total Protein Albumin HDL Cholesterol Arterial Blood Glucose Arterial Blood Ionized Calcium Crossmatch 09/13/20 09/14/20 09/14/20 21:32 05:12 09:27 WBC RBC Hgb Hct MCV MCH RDW Plt Count Lymph % (Auto) [place] % (Auto) Lymph # (Auto) Seg Neutrophils % Seg Neuts % (Manual) Lymphocytes % (Manual) Nucleated RBC % Seg Neutrophils # Seg Neutrophils # Man Lymphocytes # (Manual) D-Dimer ABG pH POC ABG pCO2 POC ABG pO2 ABG HCO3 ABG Base Excess ABG Hemoglobin ABG Oxyhemoglobin ABG Sodium ABG Potassium ABG Chloride ABG Glucose Oxyhemoglobin Carboxyhemoglobin Sodium Potassium Chloride Carbon Dioxide BUN Creatinine Glucose POC Glucose 125 H 126 H 183 H Calcium Phosphorus Magnesium Ferritin AST Alkaline Phosphatase Lactate Dehydrogenase Troponin T Total Protein Albumin HDL Cholesterol Arterial Blood Glucose Arterial Blood Ionized Calcium Crossmatch Allied health notes reviewed: nursing
== END 2020-09-14 14:07 | disposition hospice, inpatient (51) | DRG 207 ==
LOC: ED 23:49 → CC1 08-30 02:30
PROVIDERS: ADMIT Internal Medicine Geriatric Medicine; ATTEND Family Medicine
PROC: 5A1D70Z Performance of Urinary Filtration, Intermittent, Less than 6 Hours Per Day (ICD-10-PCS; principal; 2020-08-30)
PROC: 5A1955Z Respiratory Ventilation, Greater than 96 Consecutive Hours (ICD-10-PCS; 2020-08-30)
PROC: 0BH17EZ Insertion of Endotracheal Airway into Trachea, Via Natural or Artificial Opening (ICD-10-PCS; 2020-08-30)
PROC: 4A033R1 Measurement of Arterial Saturation, Peripheral, Percutaneous Approach (ICD-10-PCS; 2020-08-30)
PROC: 5A1D70Z Performance of Urinary Filtration, Intermittent, Less than 6 Hours Per Day (ICD-10-PCS; 2020-08-31)
PROC: 5A1D70Z Performance of Urinary Filtration, Intermittent, Less than 6 Hours Per Day (ICD-10-PCS; 2020-09-01)
PROC: 5A1D70Z Performance of Urinary Filtration, Intermittent, Less than 6 Hours Per Day (ICD-10-PCS; 2020-09-03)
DX: J96.01 Acute respiratory failure with hypoxia (principal); I46.9 Cardiac arrest, cause unspecified; J69.0 Pneumonitis due to inhalation of food and vomit; N18.6 End stage renal disease; I21.4 Non-ST elevation (NSTEMI) myocardial infarction; G93.1 Anoxic brain damage, not elsewhere classified; C90.01 Multiple myeloma in remission; I31.3 Pericardial effusion (noninflammatory); D84.9 Immunodeficiency, unspecified; C95.90 Leukemia, unspecified not having achieved remission; I12.0 Hypertensive chronic kidney disease with stage 5 chronic kidney disease or end stage renal disease; Z94.84 Stem cells transplant status; E87.2 Acidosis; R74.01 Elevation of levels of liver transaminase levels; R56.9 Unspecified convulsions; I95.9 Hypotension, unspecified; E87.8 Other disorders of electrolyte and fluid balance, not elsewhere classified; E83.42 Hypomagnesemia; E87.5 Hyperkalemia; Z20.822 Contact with and (suspected) exposure to COVID-19; I16.0 Hypertensive urgency; I51.7 Cardiomegaly; E11.22 Type 2 diabetes mellitus with diabetic chronic kidney disease; D64.9 Anemia, unspecified; E11.65 Type 2 diabetes mellitus with hyperglycemia; E83.39 Other disorders of phosphorus metabolism; E78.5 Hyperlipidemia, unspecified; Z79.4 Long term (current) use of insulin; Z92.21 Personal history of antineoplastic chemotherapy; Z79.899 Other long term (current) drug therapy; Z99.2 Dependence on renal dialysis; Z79.891 Long term (current) use of opiate analgesic; Z79.01 Long term (current) use of anticoagulants
CPT/HCPCS: 36415; 36600; 70450; 70551; 71045; 71275; 72125; 74018; 74177; 80048; 80053; 80061; 80074; 82728; 82803; 82805; 82947; 82962; 83615; 83735; 84100; 84132; 84145; 84484; 85007; 85025; 85027; 85379; 85610; 86140; 86850; 86900; 86901; 86920; 87040; 87070; 87205; 93005; 93306; 93970; 94002; 94003; 95819; 96361; 96365; 96367; 96375; G0378; J0360; J0456; J0610; J0696; J1100; J1644; J1815; J2060; J2185; J2543; J2704; J3010; J3370; J7030; J7040; P9016; Q9967; U0003